=== PATIENT | female | born 1935 | race African-American/Black ===

== ENCOUNTER 2016-05-31 13:06 | Inpatient (IN) | payer MEDICARE, MEDICAID ==
[~2016-05-31] VITALS: Ht 152.4 cm; Wt 74.6 kg
[~2016-05-31 13:06] MED LIST: ALLO300T PO; CYCL10TA2 PO; HYDR-971 PO; LEVO500T38 PO; MECL25TA3 PO; TRAV5DRO EACHEYE
--- NOTE | 2016-05-31 14:28 | PDOC2 ---
SHERYL SCHAEFER COPY DIRECTOR 05/31/16 1428: CARDIAC CONSULT DATE OF CONSULT Date of Consult DATE: 05/31/16 TIME: 14:19 REASON FOR CONSULT Reason for Consult: Chest pain REFERRING PHYSICIAN Referring Physician: Jordin SOURCE Source: Caregiver (daughter), Chart review, Patient HISTORY OF PRESENT ILLNESS HISTORY OF PRESENT ILLNESS This is a pleasant 81 yo female admitted for complains of chest pain. Reports that about a week ago, while doing her groceries, she was walking and started having squeezing pain midsternal with TAYLOR. This lasted about 15-30 minutes and was actually feeling dizzy and about to pass out at that time. Also she has been having intermittent left shoulder pain. The chest discomfort happened again 2 days later, again with activity and this time with nausea. She has been feeling weak in the last week. Also has been having intermittent palpitations and her symptoms have been associated with SOA. Reports that this happened again which prompted her to see her PCP. After she was seen at her PCPs, she was then instructed to come to the hospital. She was recently treated with zithromax mainly as prophylaxis due to her significant lung history with prior lung CA and current COPD with reported small productive cough. Denies any PND or orthopnea but has been feeling insomnia. Denies any fever, diaphoresis, or chills. She uses O2 2LPM at night for her COPD and REBECCA. She no longer uses bipap as she did in the past. Denies any falls or any recent injury. To add she is not on any statin and does not take any ASA. PAST MEDICAL HISTORY Past Medical History Cardiovascular: Mild carotid artery disease (via MRA 12/2014), HTN Pulmonary: COPD (O2 use 2lpm at hs), Other (REBECCA) CENTRAL NERVOUS SYSTEM: BPPV, presyncope (vasovagal, prior event monitor with no significant arrhythmia) GI: Diverticulosis Heme/Onc: Cancer (lung), Other (DVT) Hepatobiliary: No pertinent hx Psych: No pertinent hx Musculoskeletal: low back pain, Osteoarthritis, scoliosis Rheumatologic: No pertinent hx Infectious disease: No pertinent hx ENT: Other (glaucoma), edentulism Renal/: UTI, CKD3 Endocrine: No pertinent hx Dermatology: No pertinent hx PAST SURGICAL HISTORY Past Surgical History Appendectomy, Cataract Removal, Total hip replacement (right ), Other (RUL lobectomy related to CA; lumbar decompression x2), teeth removal 2015 FAMILY HISTORY Family History: Coronary Artery Disease (father) SOCIAL HISTORY Smoke: No (quit 11 yrs ago) ALLERGIES ALLERGIES: Coded Allergies: No Known Allergies (Verified Allergy, Unknown, 01/05/15) ROS Review of System 14 point ROS evaluated with pertinent positives noted per HPI PHYSICAL EXAM General: Alert, Oriented X3, Cooperative, No acute distress HEENT: Atraumatic, Mucous membr. moist/pink Lungs: Other (faint bibasilar crackles) Heart: Regular rate, Normal S1, Normal S2, Other (2/6 systolic murmur to LLS border) Abdomen: Soft, No tenderness Extremities: No cyanosis, Other (2+ bilateral LE pitting edema) Skin: No breakdown, No significant lesion Neuro: Sensation intact Psych/Mental Status: Mental status NL, Mood NL MUSCULOSKELETAL: Osteoarthritic changes both hands ECHOCARDIOGRAM ECHOCARDIOGRAM <Conclusion> The left ventricle is normal size. Left ventricle systolic function is normal. The Ejection Fraction is 60-65%. There is no significant aortic valvular stenosis. Doppler and Color Flow revealed no significant aortic regurgitation. Doppler and Color Flow revealed trace mitral valve regurgitation. Doppler and Color Flow revealed mild tricuspid regurgitation. The PA pressure was estimated at 46 mmHg. There is no evidence of significant pericardial effusion. DATE: 01/06/15 1608 ASSESSMENT/PLAN ASSESSMENT/PLAN 1. Chest pain: EKG SR with mild T wave inversion to septal leads otherwise no significant changes by comparison. Cardiac enzymes pending. Pretest probability for CAD 54%. TTE today. Ischemic workup, MPI vs C pending diagnostics result. Discussed plan significantly with daughter and pt. TSH, lipid panel. ASA. 2. HTN: controlled 3. COPD/REBECCA: no longer use bipap but utilizes O2 at hs. Controlled. Recent zithromax use mainly empiric use per pt description. 4. Hx of lung CA: RUL lobectomy in the past. 5. HX of mild carotid artery disease 6. CKD3 Problems: VANE LUNDBERG MD 05/31/16 1650: CARDIAC CONSULT ALLERGIES ALLERGIES: Coded Allergies: No Known Allergies (Verified Allergy, Unknown, 01/05/15) ASSESSMENT/PLAN ASSESSMENT/PLAN Patient seen and examined The patient is now pain-free. Chest pain. No acute EKG changes. Pain has resolved. Echo and lab tests pending. Continue present treatments. Probable stress testing tomorrow. Controlled hypertension. Continue medical treatment. COPD. Continue present medications. History of lung cancer status post right lower lobe lobectomy in the past. Chronic kidney disease reportedly stage III. Lab tests pending. Thank you for allowing us to participate in the care of your pleasant patient. Problems: SHERYL SCHAEFER APRN May 31, 2016 14:28 VANE LUNDBERG MD May 31, 2016 16:50
[2016-05-31] MEDS ORDERED: ACETAMINOPHEN 325 MG TABLET. PO PRN (14:45)
[2016-05-31] MEDS ORDERED: 0.9 % SODIUM CHLORIDE 3ML DISP.SYRIN. IV PRN (14:45)
[2016-05-31] MEDS ORDERED: ONDANSETRON PF 4 MG/2 ML VIAL. IV PRN (14:45)
[2016-05-31 15:00] VITALS: BP 170/79
[2016-05-31] MEDS ORDERED: ASPIRIN ENTERIC COATED 325 MG TABLET.DR. PO ONE (15:00)
[2016-05-31] MEDS ORDERED: NITROGLYCERIN SUBLINGUAL 0.4 MG BOTTLE OF 25. SL PRN (15:00)
--- NOTE | 2016-05-31 15:17 | EKG ---
[facility] [address] [place] [address] Test Date: 2016-05-31 Test Time: 15:15:39 Pat Name: JOSE ALFREDO BOWSER Department: Room: 207 Gender: M [employer] E[employer] Helper: BETO : 1935 Requested By: SHEYRL SCHAEFER Order Number: [id number] Reading MD: Measurements Intervals [place] Rate: 73 P: 66 OK: 166 QRS: -7 QRSD: 74 T: 47 QT: 384 QTc: 427 Interpretive Statements SINUS RHYTHM LEFTWARD AXIS OTHERWISE NORMAL ECG RI6.01 Compared to ECG 01/06/2015 14:03:28 No significant changes
[2016-05-31 15:25] LABS: BASO # 0.1 x10^3/uL (0.0-0.2); BASO % 1 % (0-3); EOS % 1 % (0-3); HEMATOCRIT 36.8 % (36.0-47.0); HEMOGLOBIN 11.5 g/dL (12.0-15.5); LYMPH # 2.3 x10^3/uL (1.0-4.8); LYMPH % 19 % (24-48); MEAN CORPUSCULAR HEMOGLOBIN 30 pg (25-35); MEAN CORPUSCULAR HGB CONC 31 g/dL (31-37); MEAN CORPUSCULAR VOLUME 96 fL (79-100); MONO % 4 % (0-9); NEUT % 76 % (31-73); PLATELET COUNT 138 x10^3/uL (140-400); RED BLOOD COUNT 3.84 x10^6/uL (3.50-5.40); RED CELL DISTRIBUTION WIDTH 16.5 % (11.5-14.5); WHITE BLOOD COUNT 11.9 x10^3/uL (4.0-11.0)
[2016-05-31 15:54] LABS: CKMB MASS 0.5 ng/mL (0.0-3.6); CREATINE KINASE 52 U/L (26-192)
--- NOTE | 2016-05-31 15:55 | RAD ---
Portable chest, 05/31/2016: History: Chest pain, shortness of breath Comparison is made to a study from 01/06/2015. The left ventricle is mildly enlarged. There is calcific plaquing the aorta. A calcified granuloma is present in the left lung. The pulmonary vascularity is normal. No acute infiltrates are seen. There is chronic blunting of the right lateral costophrenic angle probably due to scarring. No definite pleural fluid is evident. Surgical clips are present at the right hilum. 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 There are moderate degenerative changes in the spine and at both shoulders. IMPRESSION: 1. Postsurgical change on the right. 2. Mild cardiomegaly and aortic atherosclerosis. 3. No acute abnormality is detected.
[2016-05-31 15:59] LABS: ALBUMIN 3.1 g/dL (3.4-5.0); ALBUMIN/GLOBULIN RATIO 0.9 (1.0-1.7); GFR 64.7; MAGNESIUM 1.9 mg/dL (1.8-2.4); POTASSIUM 3.4 mmol/L (3.5-5.1); TOTAL BILIRUBIN 0.3 mg/dL (0.2-1.0); TOTAL PROTEIN 6.6 g/dL (6.4-8.2)
[2016-05-31] MEDS ORDERED: POTASSIUM CHLORIDE 20 MEQ TABLET.ER. PO ONE (16:30)
[2016-05-31] MEDS ORDERED: ENOXAPARIN ** NOTE DOSE ** SYRINGE SQ ONE (16:30)
--- NOTE | 2016-05-31 16:35 | CARD ---
APPROVED REPORT EXAM: Two-dimensional and M-mode echocardiogram with Doppler and color Doppler. Other Information Quality : GoodHR: 88bpm Rhythm : NSR INDICATION Chest Pain 2D DIMENSIONS RVDd2.1 (2.9-3.5cm)Left Atrium(2D)2.9 (1.6-4.0cm) IVSd1.0 (0.7-1.1cm)Aortic Root(2D)3.0 (2.0-3.7cm) LVDd4.0 (3.9-5.9cm)LVOT Diameter2.2 (1.8-2.4cm) PWd1.0 (0.7-1.1cm)LVDs2.6 (2.5-4.0cm) FS (%) 35.2 %SV45.9 ml LVEF(%)65.1 (>50%) Aortic Valve AoV Peak Sergio.101.1cm/sAoV VTI21.4cm AO Peak GR.4.1mmHgLVOT Peak Sergio.74.5cm/s AO Mean GR.2mmHgAVA (VMAX)2.86cm2 Mitral Valve MV E Fmkaeskm59.7cm/sMV E Peak Gr.3mmHg MV DECEL [id number] A Zhrjalri130.4cm/s MV E Mean Gr.2mmHgE/A Ratio0.8 MV A [id number] Pulmonary Valve PV Peak Irybgtcc850.2cm/s Tricuspid Valve TR P. Gyyiikbb266wx/sTR Peak Gr.53mmHg Pulmonary Vein S1 Abtvauwm10.2cm/sD2 Hvcucoim35.2cm/s PVa [id number] LEFT VENTRICLE The left ventricle is normal size. There is normal left ventricular wall thickness. The left ventricu lar systolic function is normal. The Ejection Fraction is 60-65%. There is normal LV segmental wall m otion. Transmitral Doppler flow pattern is Grade I-abnormal relaxation pattern. RIGHT VENTRICLE The right ventricle is normal size. There is normal right ventricular wall thickness. The right ventr icular systolic function is normal. ATRIA The left atrium size is normal. The right atrium size is normal. The interatrial septum is intact wit h no evidence for an atrial septal defect or patent foramen ovale as noted on 2-D or Doppler imaging. AORTIC VALVE The aortic valve is mildly sclerotic. Doppler and Color Flow revealed no significant aortic regurgita tion. There is no significant aortic valvular stenosis. MITRAL VALVE The mitral valve leaflets are thickened. There is no evidence of mitral valve prolapse. There is no m itral valve stenosis. Doppler and Color Flow revealed trace mitral regurgitation. TRICUSPID VALVE Doppler and Color Flow revealed moderate tricuspid regurgitation. The pulmonary artery systolic press ure is estimated at 58 mmHg. There is moderate pulmonary hypertension. PULMONIC VALVE Doppler and Color Flow revealed mild pulmonic valvular regurgitation. There is no pulmonic valvular s tenosis. GREAT VESSELS The aortic root is normal in size. The ascending aorta is normal in size. The pulmonary artery is nor mal. The IVC is normal in size and collapses >50% with inspiration. PERICARDIAL EFFUSION There is no evidence of significant pericardial effusion. Critical Notification Critical Value: No <Conclusion> The left ventricular systolic function is normal. The Ejection Fraction is 60-65%. There is normal LV segmental wall motion. Transmitral Doppler flow pattern is Grade I-abnormal relaxation pattern. Moderate tricuspid regurgitation. The pulmonary artery systolic pressure is estimated at 58 mmHg. There is moderate pulmonary hypertension. There is no evidence of significant pericardial effusion.
[2016-05-31] MEDS ORDERED: HYDROCODONE/APAP 5/325MG TABLET. PO PRN (19:15)
[2016-05-31] MEDS ORDERED: CYCLOBENZAPRINE 10 MG TABLET. PO PRN (19:15)
[2016-05-31] MEDS ORDERED: METO25TA9 PO (19:18)
[2016-05-31] MEDS ORDERED: FURO-68 PO (19:18)
[2016-05-31] MEDS ORDERED: IPRA3AMP NEB (19:18)
[2016-05-31] MEDS ORDERED: ONDA4TAB7 PO (19:18)
[2016-05-31] MEDS ORDERED: VENTOLIN HFA18 GM INH (19:18)
[2016-05-31] MEDS ORDERED: MECLIZINE HCL 12.5 MG TABLET. PO PRN (19:30)
[2016-05-31 19:33] VITALS: BP 118/58
[2016-05-31] MEDS: LATANOPROST 0.005% OPHTH SOLUTION 2.5ML BOTTLE. OU SCH (21:00)
[2016-05-31 23:32] VITALS: BP 115/58
--- NOTE | 2016-06-01 00:17 | HP ---
ADMIT DATE: 05/31/2016 CHIEF COMPLAINT AND HISTORY OF PRESENT ILLNESS: This 81-year-old black female is well known to me from followup in the office. The patient presented on the day of admission having chest pressure with associated shortness of breath, lightheadedness, some nausea with exertion and it had happened as 3 separate episodes over the prior 3 days. She had to stop what she was doing and rest. ____ her story was very consistent with new onset angina. EKG in the office showed some T-wave inversions in V1, V2 and V3. She was admitted to the hospital to telemetry for Cardiac consultation and workup of what was felt to be a new onset angina. PAST MEDICAL HISTORY: Remarkable for COPD, has a history of carcinoma of the lung. She has some baseline shortness of breath from this. She has had some recent labyrinthitis and near syncope. MEDICATIONS: Brought with the patient, listed on the computer and have been addressed. ALLERGIES: She has no known drug allergies. SOCIAL HISTORY: She is a long time nonsmoker and does not drink alcohol. Single, lives at home alone, has a very supportive family and does not use drugs. FAMILY HISTORY: Noncontributory. REVIEW OF SYSTEMS: As mentioned above. PHYSICAL EXAMINATION: GENERAL: She is a well-developed, well-nourished, pleasant female in no acute distress at rest in the office. She may be a little paler than usual. VITAL SIGNS: Stable. She is afebrile. HEAD, EYES, EARS, NOSE AND THROAT: Remarkable for glasses. NECK: Supple without any thyromegaly. CHEST: Reveals decreased breath sounds bilaterally, but clear. HEART: Regular rate and rhythm without S3, S4 or murmur. ABDOMEN: Soft, nontender, without hepatosplenomegaly or mass. EXTREMITIES: Without cyanosis, clubbing or edema. NEUROLOGIC: She is intact. IMPRESSION: Chest pain, very concerning for new onset angina as described above with other problems listed above. PLAN: The patient has been admitted. EKG and chest x-ray will be checked. Cardiology will be consulted. ____ telemetry will be ongoing. Nitroglycerin has been added and the patient will be monitored, managed and treated appropriately. LIANG WILDER MD DR: YAJAIRA/korin JOB#: [id number] / [id number] Liang Walters M.D.
[2016-06-01 03:31] VITALS: BP 122/57
[2016-06-01 06:19] LABS: CHOLESTEROL/HDL RATIO 2.1
[2016-06-01 07:00] VITALS: BP 126/65
[2016-06-01 07:37] LABS: BASO # 0.1 x10^3/uL (0.0-0.2); BASO % 1 % (0-3); EOS % 1 % (0-3); HEMATOCRIT 33.6 % (36.0-47.0); HEMOGLOBIN 10.7 g/dL (12.0-15.5); LYMPH # 2.1 x10^3/uL (1.0-4.8); LYMPH % 21 % (24-48); MEAN CORPUSCULAR HEMOGLOBIN 30 pg (25-35); MEAN CORPUSCULAR HGB CONC 32 g/dL (31-37); MEAN CORPUSCULAR VOLUME 95 fL (79-100); MONO % 4 % (0-9); NEUT % 73 % (31-73); PLATELET COUNT 138 x10^3/uL (140-400); RED BLOOD COUNT 3.55 x10^6/uL (3.50-5.40); RED CELL DISTRIBUTION WIDTH 16.6 % (11.5-14.5); WHITE BLOOD COUNT 10.3 x10^3/uL (4.0-11.0)
[2016-06-01 07:49] LABS: ALBUMIN 2.8 g/dL (3.4-5.0); ALBUMIN/GLOBULIN RATIO 1.1 (1.0-1.7); CALCIUM 8.4 mg/dL (8.5-10.1); GFR 64.7; POTASSIUM 3.9 mmol/L (3.5-5.1); TOTAL BILIRUBIN 0.2 mg/dL (0.2-1.0); TOTAL PROTEIN 5.4 g/dL (6.4-8.2)
[2016-06-01] MEDS ORDERED: REGADENOSON 0.4 MG/5 ML DISP.SYRIN. IV ONE (09:00)
--- NOTE | 2016-06-01 09:12 | PDOC ---
CARDIO Progress Notes Date and Time Date of Service 06/01/2016 Time of Evaluation 0900 Subjective Subjective: No Chest Pain, No shortness of breath, No Palpitations, No Dizziness, Other (slept well last night) Vitals Vitals Vital Signs Date Time Temp Pulse Resp B/P Pulse Ox O2 Delivery O2 Flow Rate FiO2 06/01/16 07:00 98.3 66 17 126/65 98 Nasal Cannula 2.0 98.3 Weight Weight [ ] Input and Output Intake and Output Intake and Output 06/01/16 07:00 Intake Total 300 ml Balance 300 ml Intake Oral 300 ml # Voids 4 Laboratory Labs Laboratory Tests Test 05/31/16 15:10 06/01/16 04:46 White Blood Count 11.9x10^3/uL (4.0-11.0) 10.3x10^3/uL (4.0-11.0) Red Blood Count 3.84x10^6/uL (3.50-5.40) 3.55x10^6/uL (3.50-5.40) Hemoglobin 11.5g/dL (12.0-15.5) 10.7g/dL (12.0-15.5) Hematocrit 36.8% (36.0-47.0) 33.6% (36.0-47.0) Mean Corpuscular Volume 96fL (79-100) 95fL (79-100) Mean Corpuscular Hemoglobin 30pg (25-35) 30pg (25-35) Mean Corpuscular Hemoglobin Concent 31g/dL (31-37) 32g/dL (31-37) Red Cell Distribution Width 16.5% (11.5-14.5) 16.6% (11.5-14.5) Platelet Count 138x10^3/uL (140-400) 138x10^3/uL (140-400) Neutrophils (%) (Auto) 76% (31-73) 73% (31-73) Lymphocytes (%) (Auto) 19% (24-48) 21% (24-48) Monocytes (%) (Auto) 4% (0-9) 4% (0-9) Eosinophils (%) (Auto) 1% (0-3) 1% (0-3) Basophils (%) (Auto) 1% (0-3) 1% (0-3) Neutrophils # (Auto) 9.1x10^3uL (1.8-7.7) 7.5x10^3uL (1.8-7.7) Lymphocytes # (Auto) 2.3x10^3/uL (1.0-4.8) 2.1x10^3/uL (1.0-4.8) Monocytes # (Auto) 0.4x10^3/uL (0.0-1.1) 0.4x10^3/uL (0.0-1.1) Eosinophils # (Auto) 0.1x10^3/uL (0.0-0.7) 0.1x10^3/uL (0.0-0.7) Basophils # (Auto) 0.1x10^3/uL (0.0-0.2) 0.1x10^3/uL (0.0-0.2) Sodium Level 146mmol/L (136-145) 145mmol/L (136-145) Potassium Level 3.4mmol/L (3.5-5.1) 3.9mmol/L (3.5-5.1) Chloride Level 110mmol/L (98-107) 109mmol/L (98-107) Carbon Dioxide Level 27mmol/L (21-32) 30mmol/L (21-32) Anion Gap 9 (6-14) 6 (6-14) Blood Urea Nitrogen 20mg/dL (7-20) 17mg/dL (7-20) Creatinine 1.0mg/dL (0.6-1.0) 1.0mg/dL (0.6-1.0) Estimated GFR (Cockcroft-Gault) 64.7 64.7 BUN/Creatinine Ratio 20 (6-20) 17 (6-20) Glucose Level 73mg/dL (70-99) 75mg/dL (70-99) Calcium Level 9.0mg/dL (8.5-10.1) 8.4mg/dL (8.5-10.1) Magnesium Level 1.9mg/dL (1.8-2.4) Total Bilirubin 0.3mg/dL (0.2-1.0) 0.2mg/dL (0.2-1.0) Aspartate Amino Transf (AST/SGOT) 17U/L (15-37) 17U/L (15-37) Alanine Aminotransferase (ALT/SGPT) 12U/L (14-59) 13U/L (14-59) Alkaline Phosphatase 112U/L (46-116) 103U/L (46-116) Creatine Kinase 52U/L (26-192) Creatine Kinase MB (Mass) 0.5ng/mL (0.0-3.6) Creatine Kinase MB Relative Index % (0-4) Troponin I Quantitative < 0.017ng/mL (0.000-0.055) < 0.017ng/mL (0.000-0.055) MN-Mkj-I-Type Natriuretic Peptide 411pg/mL (0-449) Total Protein 6.6g/dL (6.4-8.2) 5.4g/dL (6.4-8.2) Albumin 3.1g/dL (3.4-5.0) 2.8g/dL (3.4-5.0) Albumin/Globulin Ratio 0.9 (1.0-1.7) 1.1 (1.0-1.7) Thyroid Stimulating Hormone (TSH) 1.965uIU/mL (0.358-3.74) Triglycerides Level 174mg/dL (0-150) Cholesterol Level 168mg/dL (0-200) LDL Cholesterol, Calculated 54mg/dL (0-100) VLDL Cholesterol, Calculated 35mg/dL (0-40) HDL Cholesterol 79mg/dL (40-60) Cholesterol/HDL Ratio 2.1 Physical Exam HEENT: Neck Supple W Full Motion Chest: Symmetric LUNGS: Clear to Auscultation Heart: S1S2, RRR (no significant ectopies overnight) Abdomen: Soft N/T Extremities: No Calf Tenderness Neurology: alert, oriented, follow commands Assessment Assessment 1. Chest pain: Troponin series normal. CP free overnight and no SOA. TTE noted with normal EF with mild diastolic dysfunction. Notable for moderate MR and pulmonary HTN. MPI today to completely rule out ischemia. . 2. HTN: controlled, continue with home regimen. 3. COPD/REBECCA: no longer use bipap but utilizes O2 at hs. Controlled. Recent zithromax use mainly empiric use per pt description. 4. Hx of lung CA: RUL lobectomy in the past. 5. HX of mild carotid artery disease 6. CKD3 SHERYL SCHAEFER APRN Jun 01, 2016 09:12
[2016-06-01] MEDS ORDERED: ALBUTEROL SULFATE 2.5 MG/3 ML NEBU. NEB PRN (12:00)
[2016-06-01] MEDS: IPRATRPIUM/ALBUTEROL 0.5/2.5MG 3 ML NEBU. NEB SCH ×3 (12:05→19:19)
--- NOTE | 2016-06-01 12:53 | PDOC ---
PROGRESS NOTES Subjective Subjective Pt awake and pleasant this am. Denies further episodes of chest pain since admission. Pt NPO this am awaiting stress testing, however states is hungry. Objective Objective Vital Signs Date Time Temp Pulse Resp B/P Pulse Ox O2 Delivery O2 Flow Rate FiO2 06/01/16 12:06 97 Room Air 06/01/16 07:00 98.3 66 17 126/65 2.0 98.3 Intake and Output 06/01/16 07:00 Intake Total 300 ml Balance 300 ml Intake Oral 300 ml # Voids 4 Plan Plan of Care 1. Chest pain -3d hx of exertional chest pain with associated diaphoresis and SOB -Cardiology consulting -CXR: Postsurgical change on the right. Mild cardiomegaly and aortic atherosclerosis. No acute abnormality is detected. -Triponin negative -EKG in the office showed some T-wave inversions in V1, V2 and V3. -Echo: The left ventricular systolic function is normal. The Ejection Fraction is 60-65%. There is normal LV segmental wall motion. Transmitral Doppler flow pattern is Grade I-abnormal relaxation pattern. Moderate tricuspid regurgitation. The pulmonary artery systolic pressure is estimated at 58 mmHg. There is moderate pulmonary hypertension. There is no evidence of significant pericardial effusion. -Stress test today Comment Review of Relevant I have reviewed the following items maria (where applicable) has been applied. Labs Laboratory Tests Test 05/31/16 15:10 06/01/16 04:46 White Blood Count 11.9x10^3/uL (4.0-11.0) 10.3x10^3/uL (4.0-11.0) Red Blood Count 3.84x10^6/uL (3.50-5.40) 3.55x10^6/uL (3.50-5.40) Hemoglobin 11.5g/dL (12.0-15.5) 10.7g/dL (12.0-15.5) Hematocrit 36.8% (36.0-47.0) 33.6% (36.0-47.0) Mean Corpuscular Volume 96fL (79-100) 95fL (79-100) Mean Corpuscular Hemoglobin 30pg (25-35) 30pg (25-35) Mean Corpuscular Hemoglobin Concent 31g/dL (31-37) 32g/dL (31-37) Red Cell Distribution Width 16.5% (11.5-14.5) 16.6% (11.5-14.5) Platelet Count 138x10^3/uL (140-400) 138x10^3/uL (140-400) Neutrophils (%) (Auto) 76% (31-73) 73% (31-73) Lymphocytes (%) (Auto) 19% (24-48) 21% (24-48) Monocytes (%) (Auto) 4% (0-9) 4% (0-9) Eosinophils (%) (Auto) 1% (0-3) 1% (0-3) Basophils (%) (Auto) 1% (0-3) 1% (0-3) Neutrophils # (Auto) 9.1x10^3uL (1.8-7.7) 7.5x10^3uL (1.8-7.7) Lymphocytes # (Auto) 2.3x10^3/uL (1.0-4.8) 2.1x10^3/uL (1.0-4.8) Monocytes # (Auto) 0.4x10^3/uL (0.0-1.1) 0.4x10^3/uL (0.0-1.1) Eosinophils # (Auto) 0.1x10^3/uL (0.0-0.7) 0.1x10^3/uL (0.0-0.7) Basophils # (Auto) 0.1x10^3/uL (0.0-0.2) 0.1x10^3/uL (0.0-0.2) Sodium Level 146mmol/L (136-145) 145mmol/L (136-145) Potassium Level 3.4mmol/L (3.5-5.1) 3.9mmol/L (3.5-5.1) Chloride Level 110mmol/L (98-107) 109mmol/L (98-107) Carbon Dioxide Level 27mmol/L (21-32) 30mmol/L (21-32) Anion Gap 9 (6-14) 6 (6-14) Blood Urea Nitrogen 20mg/dL (7-20) 17mg/dL (7-20) Creatinine 1.0mg/dL (0.6-1.0) 1.0mg/dL (0.6-1.0) Estimated GFR (Cockcroft-Gault) 64.7 64.7 BUN/Creatinine Ratio 20 (6-20) 17 (6-20) Glucose Level 73mg/dL (70-99) 75mg/dL (70-99) Calcium Level 9.0mg/dL (8.5-10.1) 8.4mg/dL (8.5-10.1) Magnesium Level 1.9mg/dL (1.8-2.4) Total Bilirubin 0.3mg/dL (0.2-1.0) 0.2mg/dL (0.2-1.0) Aspartate Amino Transf (AST/SGOT) 17U/L (15-37) 17U/L (15-37) Alanine Aminotransferase (ALT/SGPT) 12U/L (14-59) 13U/L (14-59) Alkaline Phosphatase 112U/L (46-116) 103U/L (46-116) Creatine Kinase 52U/L (26-192) Creatine Kinase MB (Mass) 0.5ng/mL (0.0-3.6) Creatine Kinase MB Relative Index % (0-4) Troponin I Quantitative < 0.017ng/mL (0.000-0.055) < 0.017ng/mL (0.000-0.055) FE-Lwg-E-Type Natriuretic Peptide 411pg/mL (0-449) Total Protein 6.6g/dL (6.4-8.2) 5.4g/dL (6.4-8.2) Albumin 3.1g/dL (3.4-5.0) 2.8g/dL (3.4-5.0) Albumin/Globulin Ratio 0.9 (1.0-1.7) 1.1 (1.0-1.7) Thyroid Stimulating Hormone (TSH) 1.965uIU/mL (0.358-3.74) Triglycerides Level 174mg/dL (0-150) Cholesterol Level 168mg/dL (0-200) LDL Cholesterol, Calculated 54mg/dL (0-100) VLDL Cholesterol, Calculated 35mg/dL (0-40) HDL Cholesterol 79mg/dL (40-60) Cholesterol/HDL Ratio 2.1 Laboratory Tests Test 05/31/16 15:10 06/01/16 04:46 White Blood Count 11.9x10^3/uL (4.0-11.0) 10.3x10^3/uL (4.0-11.0) Red Blood Count 3.84x10^6/uL (3.50-5.40) 3.55x10^6/uL (3.50-5.40) Hemoglobin 11.5g/dL (12.0-15.5) 10.7g/dL (12.0-15.5) Hematocrit 36.8% (36.0-47.0) 33.6% (36.0-47.0) Mean Corpuscular Volume 96fL (79-100) 95fL (79-100) Mean Corpuscular Hemoglobin 30pg (25-35) 30pg (25-35) Mean Corpuscular Hemoglobin Concent 31g/dL (31-37) 32g/dL (31-37) Red Cell Distribution Width 16.5% (11.5-14.5) 16.6% (11.5-14.5) Platelet Count 138x10^3/uL (140-400) 138x10^3/uL (140-400) Neutrophils (%) (Auto) 76% (31-73) 73% (31-73) Lymphocytes (%) (Auto) 19% (24-48) 21% (24-48) Monocytes (%) (Auto) 4% (0-9) 4% (0-9) Eosinophils (%) (Auto) 1% (0-3) 1% (0-3) Basophils (%) (Auto) 1% (0-3) 1% (0-3) Neutrophils # (Auto) 9.1x10^3uL (1.8-7.7) 7.5x10^3uL (1.8-7.7) Lymphocytes # (Auto) 2.3x10^3/uL (1.0-4.8) 2.1x10^3/uL (1.0-4.8) Monocytes # (Auto) 0.4x10^3/uL (0.0-1.1) 0.4x10^3/uL (0.0-1.1) Eosinophils # (Auto) 0.1x10^3/uL (0.0-0.7) 0.1x10^3/uL (0.0-0.7) Basophils # (Auto) 0.1x10^3/uL (0.0-0.2) 0.1x10^3/uL (0.0-0.2) Sodium Level 146mmol/L (136-145) 145mmol/L (136-145) Potassium Level 3.4mmol/L (3.5-5.1) 3.9mmol/L (3.5-5.1) Chloride Level 110mmol/L (98-107) 109mmol/L (98-107) Carbon Dioxide Level 27mmol/L (21-32) 30mmol/L (21-32) Anion Gap 9 (6-14) 6 (6-14) Blood Urea Nitrogen 20mg/dL (7-20) 17mg/dL (7-20) Creatinine 1.0mg/dL (0.6-1.0) 1.0mg/dL (0.6-1.0) Estimated GFR (Cockcroft-Gault) 64.7 64.7 BUN/Creatinine Ratio 20 (6-20) 17 (6-20) Glucose Level 73mg/dL (70-99) 75mg/dL (70-99) Calcium Level 9.0mg/dL (8.5-10.1) 8.4mg/dL (8.5-10.1) Magnesium Level 1.9mg/dL (1.8-2.4) Total Bilirubin 0.3mg/dL (0.2-1.0) 0.2mg/dL (0.2-1.0) Aspartate Amino Transf (AST/SGOT) 17U/L (15-37) 17U/L (15-37) Alanine Aminotransferase (ALT/SGPT) 12U/L (14-59) 13U/L (14-59) Alkaline Phosphatase 112U/L (46-116) 103U/L (46-116) Creatine Kinase 52U/L (26-192) Creatine Kinase MB (Mass) 0.5ng/mL (0.0-3.6) Creatine Kinase MB Relative Index % (0-4) Troponin I Quantitative < 0.017ng/mL (0.000-0.055) < 0.017ng/mL (0.000-0.055) CO-Uuk-Q-Type Natriuretic Peptide 411pg/mL (0-449) Total Protein 6.6g/dL (6.4-8.2) 5.4g/dL (6.4-8.2) Albumin 3.1g/dL (3.4-5.0) 2.8g/dL (3.4-5.0) Albumin/Globulin Ratio 0.9 (1.0-1.7) 1.1 (1.0-1.7) Thyroid Stimulating Hormone (TSH) 1.965uIU/mL (0.358-3.74) Triglycerides Level 174mg/dL (0-150) Cholesterol Level 168mg/dL (0-200) LDL Cholesterol, Calculated 54mg/dL (0-100) VLDL Cholesterol, Calculated 35mg/dL (0-40) HDL Cholesterol 79mg/dL (40-60) Cholesterol/HDL Ratio 2.1 Medications Current Medications Aspirin (Ecotrin) 325 mg 1X ONCE PO Last administered on 05/31/16 18:30; Start 05/31/16 at 15:00; Stop 05/31/16 at 15:01; Status DC Aspirin (Ecotrin) 81 mg DAILYWBKFT PO ; Start 06/01/16 at 08:00 Sodium Chloride (Normal Saline Flush 3ml) 3 ml QSHIFT PRN IV AFTER MEDS AND BLOOD DRAWS; Start 05/31/16 at 14:45 Ondansetron HCl (Zofran) 4 mg PRN Q4HRS PRN IV NAUSEA/VOMITING; Start 05/31/16 at 14:45 Acetaminophen (Tylenol) 650 mg PRN Q4HRS PRN PO TEMP OVER 100.4F OR MILD PAIN; Start 05/31/16 at 14:45 Nitroglycerin (Nitrostat) 0.4 mg PRN Q5MIN PRN SL CHEST PAIN; Start 05/31/16 at 15:00 Potassium Chloride (Klor-Con) 40 meq 1X ONCE PO Last administered on 05/31/16 18:30; Start 05/31/16 at 16:30; Stop 05/31/16 at 16:35; Status DC Enoxaparin Sodium (Lovenox 80mg Syringe) 80 mg 1X ONCE SQ Last administered on 05/31/16 18:30; Start 05/31/16 at 16:30; Stop 05/31/16 at 16:36; Status DC Allopurinol (Zyloprim) 300 mg DAILY PO ; Start 06/01/16 at 09:00 Cyclobenzaprine HCl (Flexeril) 10 mg PRN TID PRN PO MUSLE SPASMS; Start at 19:15 Acetaminophen/ Hydrocodone Bitart (Lortab 5/325) 1 tab PRN Q6HRS PRN PO PAIN; Start 05/31/16 at 19:15 Meclizine HCl (Antivert) 25 mg PRN TID PRN PO DIZZINESS; Start 05/31/16 at 19:30 Latanoprost (Xalatan) 1 drop QHS OU Last administered on 05/31/16 21:00; Start 05/31/16 at 21:00 Regadenoson (Lexiscan) 0.4 mg 1X ONCE IV Last administered on 06/01/16 10:44; Start 06/01/16 at 09:00; Stop 06/01/16 at 09:01; Status DC Furosemide (Lasix) 40 mg DAILY PO ; Start 06/01/16 at 12:00 Albuterol/ Ipratropium (Duoneb) 3 ml RTQID NEB Last administered on 06/01/16 12 :05; Start 06/01/16 at 12:00 Metoprolol Succinate (Toprol Xl) 25 mg DAILY PO ; Start 06/01/16 at 12:00 Albuterol Sulfate (Ventolin Neb Soln) 2.5 mg PRN QID PRN NEB SHORTNESS OF BREATH; Start 06/01/16 at 12:00 Ondansetron HCl (Zofran Odt) 4 mg Q6HRS PO ; Start 06/01/16 at 12:00 Active Scripts Active Reported Duoneb 0.5-3(2.5) Mg/3 Ml (Albuterol/Ipratropium) 3 Ml Ampul.neb 3 Ml NEB QID Ventolin Hfa Inhaler (Albuterol Sulfate) 18 Gm Hfa.aer.ad 2 Puff INH QID Zofran (Ondansetron Hcl) 4 Mg Tablet 1 Tab PO Q6HRS Metoprolol Succinate ( Xl ) (Metoprolol Succinate) 25 Mg Tab.er.24h 1 Tab PO DAILY Lasix (Furosemide) 40 Mg Tablet 1 Tab PO DAILY Travatan Z (Travoprost) 5 Ml Drops 1 Drop EACHEYE QHS [place] 5-325 Tablet (Acetaminophen/Hydrocodone Bitart) 1 Each Tablet 1 Tab PO PRN Q6HRS PRN Cyclobenzaprine Hcl 10 Mg Tablet 1 Tab PO PRN TID Allopurinol 300 Mg Tablet 1 Tab PO DAILY Meclizine Hcl 25 Mg Tablet 1 Tab PO PRN TID Vitals/I & O Vital Sign - Last 24 Hours 05/31/16 05/31/16 05/31/16 05/31/16 15:00 19:19 19:33 20:00 Temp 97.8 97.7 97.8 97.7 Pulse 109 63 Resp B/P 170/79 118/58 Pulse Ox 97 93 O2 Delivery Room Air Nasal Cannula Nasal Cannula Nasal Cannula O2 Flow Rate 2.0 2.0 2.0 05/31/16 06/01/16 06/01/16 06/01/16 23:32 03:31 07:00 12:06 Temp 97.8 98.0 98.3 97.8 98.0 98.3 Pulse 72 76 66 Resp B/P 115/58 122/57 126/65 Pulse Ox 99 99 98 97 O2 Delivery Nasal Cannula Nasal Cannula Nasal Cannula Room Air O2 Flow Rate 2.0 2.0 2.0 Intake and Output 05/31/16 05/31/16 06/01/16 15:00 23:00 07:00 Intake Total 300 ml Balance 300 ml LIANG WILDER MD Jun 01, 2016 12:53
--- NOTE | 2016-06-01 12:59 | RAD ---
APPROVED REPORT Test Type: Pharmacological Stress Nurse/Tech: CHAD Gutierrez RN Test Indications: Chest discomfort Cardiac History: HTN, see EHR Medications: see EHR Medical History: COPD, see EHR Resting ECG: SR slightly depressed inferior leads 0.5mm Resting Heart Rate: 92 bpm Resting Blood Pressure: 153/76mmHg Pretest Chest Pain: No chest pain Nurse/Tech Notes Lungs CTA, heart tones WNL Consent: The procedure was explained to the patient in lay terms. Informed consent was witnessed. Avni eout was entered into [employer] History and Stress Test performed by LISA Guillaume Pharm. Details Pharmacologic stress testing was performed using 0.4mg per 5ml of regadenoson given intravenously ove r 7-10 seconds. Stress Symptoms No chest pain during stress portion, described a squeezing feeling "all over" during last 30 sec of r ecovery POST EXERCISE Reason for Termination: Infusion complete Max HR: 116 bpm 97% of Maximum Predicted HR: 119 bpm Max Blood Pressure: 151/66mmHg Chest Pain: No. Arrhythmia: No. ST Change: Yes. II, III, AVF no further depression Deviation: 0.5 mm INTERPRETATION Stress EKG Conclusion: Baseline EKG showed sinus rhythm. No ischemic changes at peak stress. No arr hythmias. Imaging Protocol IMAGE PROTOCOL: Rest Tc-99m/stress Tc-99m 1 day Rest: Stress: Viability: Radiopharm.Tc99m HmngtwdpfYq05m Sestamibi Dose12.4mCi 38.6mCi Duration 15min. 10min. Img Date 06/01/2016 06/01/2016 Inj-Img [id number]. 60min. Rest Admin Site:IV - Left ForearmAdministrator:LISA Guillaume Stress Admin Site: IV - Left ForearmAdministrator: LISA Guillaume STRESS DATA End Diast. Vol.28.0mlAv. Heart Bvhn441.0bpm End Syst. Vol.3.0mlCO Index BSA0.0L/min Myocardial Mass67.0gEject. Spqwdvfy55.0% Stress Rates Pk. Fill Rate7.06EDV/secLVtime Pk. Fill 169.11msec Pk. Empty Rate6.08ESV/secLVtime Pk. Jkjza200.52msec 1/3 Pk. Fill0.25EDV/sec Stress Scores Regional WT0.00Summed WT0.00 Regional WM1.00Summed WM5.00 Study quality was good. Left Ventricular size was Normal at Rest and Stress. Lung uptake was Normal. Left Ventricular ejection fraction is 89%. The rest and stress images show normal perfusion, normal contraction and thickening. LV Perf. Quant 17 Seg. SSS1.00 17 Seg. SRS0.00 17 Seg. SDS1.00 Stress Defect Extent (% LAD)0.00Rest Defect Extent (% LAD)0.00Rev. Defect Extent (% LAD)0.00 Stress Defect Extent (% LCX) 8.80Rest Defect Extent (% LCX)0.00Rev. Defect Extent (% LCX)6.30 Stress Defect Extent (% RCA)0.00Rest Defect Extent (% RCA)0.00Rev. Defect Extent (% RCA)0.00 Stress Defect Extent (% EUNICE)1.50Rest Defect Extent (% EUNICE)0.00Rev. Defect Extent (% EUNICE)1.10 Conclusion 1. Regadenoson cardioisotope stress test did not show any evidence of ischemia or infarct. 2. Normal left ventricular systolic function with ejection fraction calculated at 89%. 3. Low risk for cardiac events.
[2016-06-01] MEDS: FUROSEMIDE 40 MG TABLET PO SCH (13:12)
[2016-06-01] MEDS: ASPIRIN ENTERIC COATED 81 MG TABLET.DR. PO SCH (13:12)
[2016-06-01] MEDS: ALLOPURINOL 300 MG TABLET. PO SCH (13:12)
[2016-06-01] MEDS: ONDANSETRON ODT 4 MG TAB.RAPDIS PO SCH ×2 (13:13→18:59)
[2016-06-01] MEDS: METOPROLOL SUCC 24HR ER 25 MG TAB.ER.24H. PO SCH (13:13)
[2016-06-01 15:00] VITALS: BP 158/71
[2016-06-01 19:36] VITALS: BP 142/65
[2016-06-01] MEDS ORDERED: ONDANSETRON ODT 4 MG TAB.RAPDIS PO PRN (20:00)
[2016-06-01] MEDS: CYCLOBENZAPRINE 10 MG TABLET. PO SCH (22:14)
[2016-06-01] MEDS: LATANOPROST 0.005% OPHTH SOLUTION 2.5ML BOTTLE. OU SCH (22:14)
[2016-06-01 23:20] VITALS: BP 107/55
[2016-06-02 03:35] VITALS: BP 150/70
[2016-06-02 07:00] VITALS: BP 114/63
[2016-06-02] MEDS: IPRATRPIUM/ALBUTEROL 0.5/2.5MG 3 ML NEBU. NEB SCH ×2 (08:35→12:11)
[2016-06-02] MEDS ORDERED: ASPI81TA9 PO (10:32)
[2016-06-02] MEDS ORDERED: NITR0.4T SL (10:32)
--- NOTE | 2016-06-02 10:35 | PDOC ---
PROGRESS NOTES Subjective Subjective Pt awake and pleasant. Denies further episodes of chest pain since admission. Pt states she has been eating and drinking well with good output. Objective Objective Pt awake and alert. NAD. VSS. Afebrile. Lung sounds CTA bilat. Resp even and unlabored. Heart with RRR. No murmurs. Vital Signs Date Time Temp Pulse Resp B/P Pulse Ox O2 Delivery O2 Flow Rate FiO2 06/02/16 08:37 98 Room Air 06/02/16 07:00 98.0 92 20 114/63 2.0 98.0 Intake and Output 06/02/16 07:00 Intake Total 970 ml Output Total 1900 ml Balance -930 ml Intake Oral 970 ml Output Urine Total 1900 ml Plan Plan of Care 1. Chest pain -3d hx of exertional chest pain with associated diaphoresis and SOB -Cardiology consulting -CXR: Postsurgical change on the right. Mild cardiomegaly and aortic atherosclerosis. No acute abnormality is detected. -Triponin negative -EKG in the office showed some T-wave inversions in V1, V2 and V3. -Echo: The left ventricular systolic function is normal. The Ejection Fraction is 60-65%. There is normal LV segmental wall motion. Transmitral Doppler flow pattern is Grade I-abnormal relaxation pattern. Moderate tricuspid regurgitation. The pulmonary artery systolic pressure is estimated at 58 mmHg. There is moderate pulmonary hypertension. There is no evidence of significant pericardial effusion. -Stress test: 1. Regadenoson cardioisotope stress test did not show any evidence of ischemia or infarct. 2. Normal left ventricular systolic function with ejection fraction calculated at 89%. 3. Low risk for cardiac events. -Recommended cardiac cath secondary to pts s/s. Cardiology will proceed if s/ s reoccur. Pt will be discharged with Nitro prn. Pt to Dc home today. Regular diet. Activity as tolerated. Resume previous home meds with addition of Nitro prn and ASA 81mg qd. (Attempted to send scripts through EMR, however no pharmacy listed. RN to call in to pharmacy of pt's desire.) Pt to f/u in or office in 1 week ([phone]). Comment Review of Relevant I have reviewed the following items maria (where applicable) has been applied. Labs Laboratory Tests Test 05/31/16 15:10 06/01/16 04:46 06/01/16 16:00 White Blood Count 11.9x10^3/uL (4.0-11.0) 10.3x10^3/uL (4.0-11.0) Red Blood Count 3.84x10^6/uL (3.50-5.40) 3.55x10^6/uL (3.50-5.40) Hemoglobin 11.5g/dL (12.0-15.5) 10.7g/dL (12.0-15.5) Hematocrit 36.8% (36.0-47.0) 33.6% (36.0-47.0) Mean Corpuscular Volume 96fL (79-100) 95fL (79-100) Mean Corpuscular Hemoglobin 30pg (25-35) 30pg (25-35) Mean Corpuscular Hemoglobin Concent 31g/dL (31-37) 32g/dL (31-37) Red Cell Distribution Width 16.5% (11.5-14.5) 16.6% (11.5-14.5) Platelet Count 138x10^3/uL (140-400) 138x10^3/uL (140-400) Neutrophils (%) (Auto) 76% (31-73) 73% (31-73) Lymphocytes (%) (Auto) 19% (24-48) 21% (24-48) Monocytes (%) (Auto) 4% (0-9) 4% (0-9) Eosinophils (%) (Auto) 1% (0-3) 1% (0-3) Basophils (%) (Auto) 1% (0-3) 1% (0-3) Neutrophils # (Auto) 9.1x10^3uL (1.8-7.7) 7.5x10^3uL (1.8-7.7) Lymphocytes # (Auto) 2.3x10^3/uL (1.0-4.8) 2.1x10^3/uL (1.0-4.8) Monocytes # (Auto) 0.4x10^3/uL (0.0-1.1) 0.4x10^3/uL (0.0-1.1) Eosinophils # (Auto) 0.1x10^3/uL (0.0-0.7) 0.1x10^3/uL (0.0-0.7) Basophils # (Auto) 0.1x10^3/uL (0.0-0.2) 0.1x10^3/uL (0.0-0.2) Sodium Level 146mmol/L (136-145) 145mmol/L (136-145) Potassium Level 3.4mmol/L (3.5-5.1) 3.9mmol/L (3.5-5.1) Chloride Level 110mmol/L (98-107) 109mmol/L (98-107) Carbon Dioxide Level 27mmol/L (21-32) 30mmol/L (21-32) Anion Gap 9 (6-14) 6 (6-14) Blood Urea Nitrogen 20mg/dL (7-20) 17mg/dL (7-20) Creatinine 1.0mg/dL (0.6-1.0) 1.0mg/dL (0.6-1.0) Estimated GFR (Cockcroft-Gault) 64.7 64.7 BUN/Creatinine Ratio 20 (6-20) 17 (6-20) Glucose Level 73mg/dL (70-99) 75mg/dL (70-99) Calcium Level 9.0mg/dL (8.5-10.1) 8.4mg/dL (8.5-10.1) Magnesium Level 1.9mg/dL (1.8-2.4) Total Bilirubin 0.3mg/dL (0.2-1.0) 0.2mg/dL (0.2-1.0) Aspartate Amino Transf (AST/SGOT) 17U/L (15-37) 17U/L (15-37) Alanine Aminotransferase (ALT/SGPT) 12U/L (14-59) 13U/L (14-59) Alkaline Phosphatase 112U/L (46-116) 103U/L (46-116) Creatine Kinase 52U/L (26-192) Creatine Kinase MB (Mass) 0.5ng/mL (0.0-3.6) Creatine Kinase MB Relative Index % (0-4) Troponin I Quantitative < 0.017ng/mL (0.000-0.055) < 0.017ng/mL (0.000-0.055) BG-Vxb-A-Type Natriuretic Peptide 411pg/mL (0-449) Total Protein 6.6g/dL (6.4-8.2) 5.4g/dL (6.4-8.2) Albumin 3.1g/dL (3.4-5.0) 2.8g/dL (3.4-5.0) Albumin/Globulin Ratio 0.9 (1.0-1.7) 1.1 (1.0-1.7) Thyroid Stimulating Hormone (TSH) 1.965uIU/mL (0.358-3.74) Triglycerides Level 174mg/dL (0-150) Cholesterol Level 168mg/dL (0-200) LDL Cholesterol, Calculated 54mg/dL (0-100) VLDL Cholesterol, Calculated 35mg/dL (0-40) HDL Cholesterol 79mg/dL (40-60) Cholesterol/HDL Ratio 2.1 D-Dimer (Sharda) 0.50ug/mlFEU (0.00-0.50) Laboratory Tests Test 06/01/16 16:00 D-Dimer (Sharda) 0.50ug/mlFEU (0.00-0.50) Medications Current Medications Aspirin (Ecotrin) 325 mg 1X ONCE PO Last administered on 05/31/16 18:30; Start 05/31/16 at 15:00; Stop 05/31/16 at 15:01; Status DC Aspirin (Ecotrin) 81 mg DAILYWBKFT PO Last administered on 06/01/16 13:12; Start 06/01/16 at 08:00 Sodium Chloride (Normal Saline Flush 3ml) 3 ml QSHIFT PRN IV AFTER MEDS AND BLOOD DRAWS; Start 05/31/16 at 14:45 Ondansetron HCl (Zofran) 4 mg PRN Q4HRS PRN IV NAUSEA/VOMITING; Start 05/31/16 at 14:45 Acetaminophen (Tylenol) 650 mg PRN Q4HRS PRN PO TEMP OVER 100.4F OR MILD PAIN; Start 05/31/16 at 14:45 Nitroglycerin (Nitrostat) 0.4 mg PRN Q5MIN PRN SL CHEST PAIN; Start 05/31/16 at 15:00 Potassium Chloride (Klor-Con) 40 meq 1X ONCE PO Last administered on 05/31/16 18:30; Start 05/31/16 at 16:30; Stop 05/31/16 at 16:35; Status DC Enoxaparin Sodium (Lovenox 80mg Syringe) 80 mg 1X ONCE SQ Last administered on 05/31/16 18:30; Start 05/31/16 at 16:30; Stop 05/31/16 at 16:36; Status DC Allopurinol (Zyloprim) 300 mg DAILY PO Last administered on 06/01/16 13:12; Start 06/01/16 at 09:00 Cyclobenzaprine HCl (Flexeril) 10 mg PRN TID PRN PO MUSLE SPASMS Last administered on 06/01/16 13:16; Start 05/31/16 at 19:15; Stop 06/01/16 at 21:00; Status DC Acetaminophen/ Hydrocodone Bitart (Lortab 5/325) 1 tab PRN Q6HRS PRN PO MODERATE - SEVERE PAIN; Start 05/31/16 at 19:15 Meclizine HCl (Antivert) 25 mg PRN TID PRN PO DIZZINESS; Start 05/31/16 at 19:30 Latanoprost (Xalatan) 1 drop QHS OU Last administered on 06/01/16 22:14; Start 05/31/16 at 21:00 Regadenoson (Lexiscan) 0.4 mg 1X ONCE IV Last administered on 06/01/16 10:44; Start 06/01/16 at 09:00; Stop 06/01/16 at 09:01; Status DC Furosemide (Lasix) 40 mg DAILY PO Last administered on 06/01/16 13:12; Start at 12:00 Albuterol/ Ipratropium (Duoneb) 3 ml RTQID NEB Last administered on 06/02/16 08 :35; Start 06/01/16 at 12:00 Metoprolol Succinate (Toprol Xl) 25 mg DAILY PO Last administered on 06/01/16 13:13; Start 06/01/16 at 12:00 Albuterol Sulfate (Ventolin Neb Soln) 2.5 mg PRN QID PRN NEB SHORTNESS OF BREATH; Start 06/01/16 at 12:00 Ondansetron HCl (Zofran Odt) 4 mg Q6HRS PO Last administered on 06/01/16 18:59 ; Start 06/01/16 at 12:00; Stop 06/01/16 at 19:02; Status DC Cyclobenzaprine HCl (Flexeril) 10 mg BID PO Last administered on 06/01/16 22:14 ; Start 06/01/16 at 21:00 Ondansetron HCl (Zofran Odt) 4 mg Q6HRS PRN PO nausea; Start 06/01/16 at 20:00 Active Scripts Active Reported Duoneb 0.5-3(2.5) Mg/3 Ml (Albuterol/Ipratropium) 3 Ml Ampul.neb 3 Ml NEB QID Ventolin Hfa Inhaler (Albuterol Sulfate) 18 Gm Hfa.aer.ad 2 Puff INH QID Zofran (Ondansetron Hcl) 4 Mg Tablet 1 Tab PO Q6HRS Metoprolol Succinate ( Xl ) (Metoprolol Succinate) 25 Mg Tab.er.24h 1 Tab PO DAILY Lasix (Furosemide) 40 Mg Tablet 1 Tab PO DAILY Travatan Z (Travoprost) 5 Ml Drops 1 Drop EACHEYE QHS [place] 5-325 Tablet (Acetaminophen/Hydrocodone Bitart) 1 Each Tablet 1 Tab PO PRN Q6HRS PRN Cyclobenzaprine Hcl 10 Mg Tablet 1 Tab PO PRN TID Allopurinol 300 Mg Tablet 1 Tab PO DAILY Meclizine Hcl 25 Mg Tablet 1 Tab PO PRN TID Vitals/I & O Vital Sign - Last 24 Hours 06/01/16 06/01/16 06/01/16 06/01/16 12:06 13:13 15:00 15:44 Temp 97.9 97.9 Pulse 66 95 Resp 18 B/P 126/65 158/71 Pulse Ox 97 95 O2 Delivery Room Air Nasal Cannula Room Air O2 Flow Rate 2.0 06/01/16 06/01/16 06/01/16 06/01/16 19:19 19:36 19:50 23:20 Temp 98.4 98.7 98.4 98.7 Pulse 112 95 Resp 20 18 B/P 142/65 107/55 Pulse Ox 94 96 O2 Delivery Room Air Room Air Room Air Room Air 206/02/16 06/02/16 03:35 07:00 08:37 Temp 98.8 98.0 98.8 98.0 Pulse 91 92 Resp 20 20 B/P 150/70 114/63 Pulse Ox 99 97 98 O2 Delivery Nasal Cannula Nasal Cannula Room Air O2 Flow Rate 2.0 2.0 Intake and Output 06/01/16 06/01/16 06/02/16 15:00 23:00 07:00 Intake Total 850 ml 120 ml Output Total 1200 ml 700 ml Balance -350 ml -580 ml LIANG WILDER MD Jun 02, 2016 10:35
[2016-06-02] MEDS: FUROSEMIDE 40 MG TABLET PO SCH (10:44)
[2016-06-02] MEDS: CYCLOBENZAPRINE 10 MG TABLET. PO SCH (10:44)
[2016-06-02] MEDS: ASPIRIN ENTERIC COATED 81 MG TABLET.DR. PO SCH (10:44)
[2016-06-02] MEDS: METOPROLOL SUCC 24HR ER 25 MG TAB.ER.24H. PO SCH (10:46)
[2016-06-02] MEDS: ALLOPURINOL 300 MG TABLET. PO SCH (10:46)
[2016-06-02 11:00] VITALS: BP 132/69
--- NOTE | 2016-06-02 11:21 | PDOC ---
CARDIO Progress Notes Date and Time Date of Service 06/02/2016 Time of Evaluation 1116 Subjective Subjective: No Chest Pain, No shortness of breath, No Palpitations, No Dizziness Comments: no chest pain since admission Vitals Vitals Vital Signs Date Time Temp Pulse Resp B/P Pulse Ox O2 Delivery O2 Flow Rate FiO2 06/02/16 10:46 96 139/69 06/02/16 08:37 98 Room Air 06/02/16 08:00 2.0 06/02/16 07:00 98.0 20 98.0 Weight Weight [ ] Input and Output Intake and Output Intake and Output 06/02/16 07:00 Intake Total 970 ml Output Total 1900 ml Balance -930 ml Intake Oral 970 ml Output Urine Total 1900 ml Laboratory Labs Laboratory Tests Test 06/01/16 16:00 D-Dimer (Sharda) 0.50ug/mlFEU (0.00-0.50) Physical Exam HEENT: Neck Supple W Full Motion Chest: Symmetric LUNGS: Clear to Auscultation Heart: S1S2, RRR (no significant ectopies overnight), other (tele: SR) Abdomen: Soft N/T Extremities: No Edema Neurology: alert, oriented, follow commands Assessment Assessment 1. Chest pain no recurrence echo with preserved LV function and no WMA MPI was non-ischemic and low risk study with LV hyperdynamic 2. HTN diastolic dysfunction - grade 1 on echo consider addition of ACEI or ARB to minimize this - defer to PCP in the outpatient setting 3. pulmonary HTN, moderate PA = 58 mm Hg on echo may benefit from evaluation by pulmonary Agreeable with discharge. AMILCAR MENDIOLA APRN Jun 02, 2016 11:21
[2016-06-02] MEDS ORDERED: LATANOPROST 0.005% OPHTH SOLUTION 2.5ML BOTTLE. OU SCH (13:13)
--- NOTE | 2016-06-02 22:30 | DS ---
DATE OF DISCHARGE: 06/02/2016 HISTORY OF PRESENT ILLNESS: This is a 81-year-old black female who is well known to me from followup in the office. The patient presented to the clinic on the day of admission with complaints of chest pain with associated shortness of breath, lightheadedness and nausea. The patient stated that her symptoms had begun approximately 3 days ago and she noticed a correlation with exertion. The patient stated that her chest pain did subside with rest in the clinic and EKG did show T-wave inversion in V1, V2 and V3. The patient was admitted to the hospital for telemetry and cardiac consult and workup for new-onset angina. SUMMARY OF STAY: Upon admission, cardiology was consulted. Cardiac enzymes were within normal limits. Her TSH was drawn which was also within normal limits at 1.965. Cholesterol panel revealed a triglyceride level of 174, cholesterol of 168, LDL 54 and HDL of 79. The patient did a nuclear medicine scan on 06/01/2016. The results of this did not show any evidence of ischemia or infarct. The results showed a normal left ventricular systolic function with an ejection fraction calculated at 89% and therefore the patient was categorized at low risk for cardiac events. An echo revealed an ejection fraction of 60%-65% with moderate triscuspid regurgitation. Based on the patient's presenting signs and symptoms, I did recommend that the patient have a cardiac cath; however, Cardiology did not feel the need for this secondary the echo and stress test being relatively within normal limits. They will proceed with a cardiac cath if the signs and symptoms do reoccur. Therefore, the patient is home with nitro sublingual p.r.n. as well as daily aspirin and instructions to follow up in the Emergency Room if signs and symptoms do reoccur. DIET: Regular. ACTIVITY: As tolerated. DISCHARGE MEDICATIONS: The patient will resume her previous home medications with the addition of nitro p.r.n. and aspirin 81 mg daily. FOLLOWUP: The patient is to follow up in our clinic in one week. The patient stated understanding of the discharge summary, denied questions and will follow up accordingly. LIANG WILDER MD DR: YAJAIRA/korin JOB#: [id number] / [id number]
== END 2016-06-02 13:00 | disposition home or self-care (01) | DRG 311 ==
LOC: 2 NORTH 13:22 → EDSEX 13:22 → 2 NORTH 14:20
PROVIDERS: ADMIT Family Medicine; ATTEND Family Medicine
DX: I20.9 Angina pectoris, unspecified (principal); K57.90 Diverticulosis of intestine, part unspecified, without perforation or abscess without bleeding; G47.00 Insomnia, unspecified; G47.33 Obstructive sleep apnea (adult) (pediatric); I12.9 Hypertensive chronic kidney disease with stage 1 through stage 4 chronic kidney disease, or unspecified chronic kidney disease; J44.9 Chronic obstructive pulmonary disease, unspecified; I27.2 Other secondary pulmonary hypertension; M41.9 Scoliosis, unspecified; Z96.641 Presence of right artificial hip joint; Z60.2 Problems related to living alone; R11.2 Nausea with vomiting, unspecified; M54.5 Low back pain; M25.512 Pain in left shoulder; R00.2 Palpitations; R42 Dizziness and giddiness; H40.9 Unspecified glaucoma; N18.3 Chronic kidney disease, stage 3 (moderate); Z82.49 Family history of ischemic heart disease and other diseases of the circulatory system; Z85.118 Personal history of other malignant neoplasm of bronchus and lung; Z98.49 Cataract extraction status, unspecified eye; Z90.49 Acquired absence of other specified parts of digestive tract; Z87.440 Personal history of urinary (tract) infections; Z85.89 Personal history of malignant neoplasm of other organs and systems; Z86.718 Personal history of other venous thrombosis and embolism; Z79.899 Other long term (current) drug therapy
CPT/HCPCS: 36415; 71010; 78452; 80053; 80061; 82553; 83735; 83880; 84443; 84484; 85027; 85379; 93005; 93017; 93306; 94250; 94640; 96374; 96375; 96376; A9500; J1650; J2785; J7620; Q0162

== ENCOUNTER 2016-09-06 09:55 | Inpatient (IN) | payer MEDICARE, MEDICAID ==
[~2016-09-06] VITALS: Ht 152.4 cm; Wt 71.9 kg
[~2016-09-06 09:55] MED LIST changes: +ASPI81TA9 PO; +FURO-68 PO; +IPRA3AMP NEB; +METO25TA9 PO; +NITR0.4T SL; +ONDA4TAB7 PO; +VENTOLIN HFA18 GM INH
[2016-09-06] MEDS ORDERED: IV NORMAL SALINE 1000ML BAG 1,000 ML IV SCH (10:28)
[2016-09-06] MEDS ORDERED: 0.9 % SODIUM CHLORIDE 10 ML DISP.SYRIN. IV PRN (10:30)
[2016-09-06] MEDS ORDERED: HYDROmorphone 2 MG/ML VIAL IV ONE (10:30)
[2016-09-06] MEDS ORDERED: ASPIRIN CHEWABLE 81 MG TABLET. PO ONE (10:30)
--- NOTE | 2016-09-06 10:35 | PHYS DOC ---
Past Medical History Past Medical History: Anxiety, Cancer, COPD Additional Past Medical Histor: tachycardia syndrome Past Surgical History: Cholecystectomy, Hysterectomy (partial hysterectomy) Additional Past Surgical Histo: bunionectomy, lower back surgery Smoking: Quit Greater Than 1 Year Alcohol Use: None Drug Use: None Adult General Chief Complaint Chief Complaint: COUGH HPI HPI This 81-year-old black female with a history of COPD, prior lung cancer prior issues with tachydysrhythmia presents with chest pain that began with productive cough shortness of breath with pain radiation to the back. Patient was seen by her primary doctor yesterday feeling fine until this morning when she developed an increasingly productive cough described as green and discharge with no sore throat or change in voice but has had some shortness of breath and chest pain underneath each for breast radiation to the back. The chest pain is worse with breathing movements and cough is not unlike her prior experience in 2015. Patient denies any trauma she does have some lightheaded dizziness with pain as well as headache described as a throbbing aching pain that did not start suddenly but is a bandlike squeezing pressure on the top of her head. She does not have headaches often but this is very severe to her. She denies any problems word finding denies any problems with vision changes or hearing loss. She denies any photophobia denies any focal neurologic deficits. She denies any sick contacts, recent travel S at the country, recent antibiotics. Denies any fevers, chills, nausea, vomiting, diarrhea. PAST MEDICAL HISTORY: Remarkable for COPD, has a history of carcinoma of the lung possible anxiety and a tachydysrhythmia.. She has some baseline shortness of breath from this. She has had some recent labyrinthitis and near syncope. Review of Systems Review of Systems Constitutional: Denies fever or chills [] Eyes: Denies change in visual acuity, redness, or eye pain [] HENT: Denies nasal congestion or sore throat [] Respiratory: Does have a cough is productive with shortness of breath. Cardiovascular: No additional information not addressed in HPI [] GI: Denies abdominal pain, nausea, vomiting, bloody stools or diarrhea [] : Denies dysuria or hematuria [] Musculoskeletal: Does complain of chronic lower leg pain and swelling in the left calf and chronic bilateral knee pain for which she says she has to have replacement surgery. Integument: Denies rash or skin lesions [] Neurologic: Patient is a generalized headache in the front described as a throbbing ache not worst of life and sudden onset but very severe. Endocrine: Denies polyuria or polydipsia [] Current Medications Current Medications Current Medications Medications (Trade) Dose Ordered Sig/Fortunato Start Time Stop Time Status Last Admin Dose Admin Aspirin (Children'S Aspirin) 324 mg 1X ONCE 09/06/16 10:30 09/06/16 10:33 DC 09/06/16 11:10 324 MG Azithromycin 500 mg/Azithromycin 250 ml @ 250 mls/hr 1X ONCE 09/06/16 11:45 09/06/16 12:44 Ceftriaxone Sodium 50 ml @ 100 mls/hr 1X ONCE 09/06/16 11:45 09/06/16 12:14 DC Hydromorphone HCl (Dilaudid) 0.5 mg 1X ONCE 09/06/16 10:30 09/06/16 10:33 DC 09/06/16 11:10 0.5 MG Iohexol (Omnipaque 300 Mg/ml) 60 ml 1X ONCE 09/06/16 11:45 09/06/16 11:46 DC Lorazepam (Ativan) 1 mg 1X ONCE 09/06/16 10:30 09/06/16 10:33 DC 09/06/16 11:10 1 MG Sodium Chloride (Normal Saline Flush) 10 ml QSHIFT PRN 09/06/16 10:30 Allergies Allergies Allergies Coded Allergies Type Severity Reaction Last Updated Verified No Known Allergies Allergy Unknown 01/05/15 Yes Physical Exam Physical Exam Constitutional: Obese female in discomfort nontoxic in appearance able to complete 3-5 word sentences similarly when seen with waves of pain across her forehead and her chest wall When she coughs. HENT: Normocephalic, atraumatic, bilateral external ears normal, oropharynx moist, no oral exudates, nose normal. [] Eyes: PERRLA, EOMI, conjunctiva normal, no discharge. [] Neck: Normal range of motion, no tenderness, supple, no stridor. [] Cardiovascular:Heart rate regular rhythm, no murmur. Reproducible chest wall pain on examination. Lungs & Thorax: Bilateral breath sounds clear to auscultation [] Abdomen: Bowel sounds normal, soft, no tenderness, no masses, no pulsatile masses. [] Skin: Warm, dry, no erythema, no rash. [] Extremities: No tenderness, no cyanosis, no clubbing, ROM intact, she does have some edema the reduction is bilaterally +1 pitting edema with no Homans sign but mild tenderness to palpation in the left calf. Neurologic: Alert and oriented X 3, normal motor function, normal sensory function, no focal deficits noted. [] Psychologic: Patient is mildly anxious but able answer all questions without issue. Current Patient Data Vital Signs Vital Signs Date Time Temp Pulse Resp B/P (MAP) Pulse Ox O2 Delivery O2 Flow Rate FiO2 09/06/16 11:38 108 2 138/63 (88) 92 Nasal Cannula 3.0 09/06/16 10:19 99.9 99.9 Lab Values Laboratory Tests Test 09/06/16 10:46 09/06/16 10:51 White Blood Count 19.6 x10^3/uL (4.0-11.0) H Red Blood Count 3.87 x10^6/uL (3.50-5.40) Hemoglobin 11.5 g/dL (12.0-15.5) L Hematocrit 35.4 % (36.0-47.0) L Mean Corpuscular Volume 92 fL (79-100) Mean Corpuscular Hemoglobin 30 pg (25-35) Mean Corpuscular Hemoglobin Concent 33 g/dL (31-37) Red Cell Distribution Width 15.8 % (11.5-14.5) H Platelet Count 200 x10^3/uL (140-400) Neutrophils (%) (Auto) 90 % (31-73) H Lymphocytes (%) (Auto) 6 % (24-48) L Monocytes (%) (Auto) 4 % (0-9) Eosinophils (%) (Auto) 0 % (0-3) Basophils (%) (Auto) 0 % (0-3) Neutrophils # (Auto) 17.7 x10^3uL (1.8-7.7) H Lymphocytes # (Auto) 1.1 x10^3/uL (1.0-4.8) Monocytes # (Auto) 0.8 x10^3/uL (0.0-1.1) Eosinophils # (Auto) 0.0 x10^3/uL (0.0-0.7) Basophils # (Auto) 0.0 x10^3/uL (0.0-0.2) Platelet Estimate Pending D-Dimer (Sharda) 1.58 ug/mlFEU (0.00-0.50) H Sodium Level 139 mmol/L (136-145) Potassium Level 4.2 mmol/L (3.5-5.1) Chloride Level 105 mmol/L (98-107) Carbon Dioxide Level 26 mmol/L (21-32) Anion Gap 8 (6-14) Blood Urea Nitrogen 23 mg/dL (7-20) H Creatinine 1.1 mg/dL (0.6-1.0) H Estimated GFR (Cockcroft-Gault) 58.0 Glucose Level 103 mg/dL (70-99) H Calcium Level 9.1 mg/dL (8.5-10.1) Creatine Kinase 110 U/L (26-192) Creatine Kinase MB (Mass) 0.7 ng/mL (0.0-3.6) Creatine Kinase MB Relative Index 0.6 % (0-4) Troponin I Quantitative < 0.017 ng/mL (0.000-0.055) VN-Qel-P-Type Natriuretic Peptide 407 pg/mL (0-449) Lipase 47 U/L (73-393) L Thyroid Stimulating Hormone (TSH) 1.921 uIU/mL (0.358-3.74) POC Troponin I 0.00 ng/ml (<0.08) Laboratory Tests 09/06/16 10:46 Laboratory Tests 09/06/16 10:46 EKG EKG EKG time 10:08 AM 09/06/[address] Vail heart rate 117 sinus tachycardia with left atrial enlargement and nonspecific T-wave inversion in V1 and V2 which is not new question so depression in V5 V6 which may resent some abnormality like ischemia. [] Radiology/Procedures Radiology/Procedures [] Signed PATIENT: VITA BOWSER ACCOUNT: [id number] : 1935 LOCATION: ER AGE: 81 SEX: F EXAM STATUS: REG ER ORD. PHYSICIAN: DEE VAIL MD REASON: chest pain PROCEDURE: PORTABLE CHEST 1V Indication: Chest pain and cough. Time of exam 11 0 4:00 AM Correlation is made with prior chest from 05/31/2016. The heart size is stable. There is some increasing density in the left base since prior exam, partially obscuring the left hemidiaphragm. This would be consistent with some developing infiltrate or atelectasis. The right lung is clear. Calcified granuloma left midlung is stable. Impression: Developing infiltrate or atelectasis in the left base since exam from 05/31/2016. DICTATED and SIGNED BY: PEDRO BRAXTON MD DATE: 09/06/16 1110 CC: LIANG WILDER MD; DEE VAIL MD ~ IMAGING REPORT Signed PATIENT: VITA BOWSER ACCOUNT: [id number] : 1935 LOCATION: ER AGE: 81 SEX: F EXAM STATUS: REG ER ORD. PHYSICIAN: DEE VAIL MD REASON: headache PROCEDURE: CT HEAD WO CONTRAST Indication: Headache. Axial imaging through the brain was performed without contrast. No prior studies are available for comparison. The ventricles and sulci are within normal limits. No sulcal effacement, midline shift or hemorrhage is detected. The cisterns are patent. The visualized paranasal sinuses are clear. Impression: No acute intracranial process is detected. PQRS Compliance Statement: One or more of the following individualized dose reduction techniques were utilized for this examination: 1. Automated exposure control 2. Adjustment of the mA and/or kV according to patient size 3. Use of iterative reconstruction technique DICTATED and SIGNED BY: PEDRO BRAXTON MD DATE: 09/06/16 1113 CC: LIANG WILDER MD; DEE VAIL MD ~ Signed PATIENT: VITA BOWSER ACCOUNT: [id number] : 1935 LOCATION: ER AGE: 81 SEX: F EXAM STATUS: REG ER ORD. PHYSICIAN: DEE VAIL MD REASON: leg pain with shortness of breath tachycardia and chest pain PROCEDURE: VENOUS LOWER EXTREMITY LEFT Exam performed: Left lower extremity venous Doppler. Clinical Indication: Left leg pain and swelling Date of Service:05/10/17 Comparison : None available Discussion: Multiple longitudinal and transverse high resolution real-time images of the venous system of left lower extremity were obtained with color and Doppler sampling and spectral analysis. The common femoral, superficial femoral, popliteal and proximal calf veins are all patent and demonstrate normal flow and compressibility. Normal respiratory phasicity and augmentation is present. Impression: Normal color duplex ultrasound of the venous system of left lower extremity. DICTATED and SIGNED BY: JAMI AREVALO MD DATE: 09/06/16 3311 CC: LIANG WILDER MD; DEE VAIL MD ~ Course & Med Decision Making Course & Med Decision Making Pertinent Labs and Imaging studies reviewed. (See chart for details) I reviewed patient's notes from prior admissions as well as [] Signs and nursing notes which I agree with. Patient noted to be tachycardic and mildly tachypnea on my examination. Patient's chest x-ray demonstrates early left lower lobe pneumonia, troponin, negative EKG with only sinus tachycardia noted no evidence of ischemia. D-dimer is elevated likely secondary to localized infection the lung unfortunately with left lower extremity edema pain and positive d-dimer CT edge of the chest been ordered. Even before results are pending paged Dr. PANCHO Beyer primary care doctor for this patient. He'll discuss case and agreed on admission given her continued discomfort of chest pain shortness of breath and tachycardia. Her tachycardia is not new long-standing and old but given her abnormal vital signs were admitted to the hospital for fluids IV hydration, antibiotics and close follow-up with her primary care doctor. Impression: Chest pain, pneumonia, headache, leukocytosis, hyperglycemia, dyspnea, tachycardia long-standing. Disposition admission to the hospital under the care of Dr. PANCHO Beyer reevaluation of her psychosis and suspected pneumonia pending CT imaging of the chest rule out PE. Dragon Disclaimer Dragon Disclaimer This electronic medical record was generated, in whole or in part, using a voice recognition dictation system. Departure Departure Referrals: LIANG WILDER MD (PCP) DEE VAIL MD September 06, 2016 10:35
[2016-09-06 10:58] LABS: BASO % 0 % (0-3); EOS % 0 % (0-3); HEMATOCRIT 35.4 % (36.0-47.0); HEMOGLOBIN 11.5 g/dL (12.0-15.5); LYMPH # 1.1 x10^3/uL (1.0-4.8); LYMPH % 6 % (24-48); MEAN CORPUSCULAR HEMOGLOBIN 30 pg (25-35); MEAN CORPUSCULAR HGB CONC 33 g/dL (31-37); MEAN CORPUSCULAR VOLUME 92 fL (79-100); MONO % 4 % (0-9); NEUT % 90 % (31-73); PLATELET COUNT 200 x10^3/uL (140-400); RED BLOOD COUNT 3.87 x10^6/uL (3.50-5.40); RED CELL DISTRIBUTION WIDTH 15.8 % (11.5-14.5); WHITE BLOOD COUNT 19.6 x10^3/uL (4.0-11.0)
[2016-09-06 11:07] LABS: CALCIUM 9.1 mg/dL (8.5-10.1); CREATININE 1.1 mg/dL (0.6-1.0); POTASSIUM 4.2 mmol/L (3.5-5.1)
--- NOTE | 2016-09-06 11:13 | RAD ---
Indication: Chest pain and cough. Time of exam 11 0 4:00 AM Correlation is made with prior chest from 05/31/2016. The heart size is stable. There is some increasing density in the left base since prior exam, partially obscuring the left hemidiaphragm. This would be consistent with some developing infiltrate or atelectasis. The right lung is clear. Calcified granuloma left midlung is stable. Impression: Developing infiltrate or atelectasis in the left base since exam from 05/31/2016.
--- NOTE | 2016-09-06 11:15 | EKG ---
[facility] [address] [place] [address] Test Date: 2016-09-06 Test Time: 10:08:17 Pat Name: VITA BOWSER Department: Room: Gender: F Title I Director: : 1935 Requested By: DEE VAIL Order Number: [id number] Reading MD: Shubham Stratton Measurements Intervals Prospect Rate: 117 P: 40 OR: 144 QRS: -1 QRSD: 72 T: 55 QT: 362 QTc: 510 Interpretive Statements SINUS TACHYCARDIA NON-SPECIFIC ST/T CHANGES Electronically Signed On 09-11-2016 9:17:36 CDT by Shubham Stratton
--- NOTE | 2016-09-06 11:16 | RAD ---
Indication: Headache. Axial imaging through the brain was performed without contrast. No prior studies are available for comparison. The ventricles and sulci are within normal limits. No sulcal effacement, midline shift or hemorrhage is detected. The cisterns are patent. The visualized paranasal sinuses are clear. Impression: No acute intracranial process is detected. PQRS Compliance Statement: One or more of the following individualized dose reduction techniques were utilized for this examination: 1. Automated exposure control 2. Adjustment of the mA and/or kV according to patient size 3. Use of iterative reconstruction technique
[2016-09-06 11:34] LABS: CKMB MASS 0.7 ng/mL (0.0-3.6)
[2016-09-06] MEDS ORDERED: [UNRECOGNIZED DRUG - OTHER] IV ONE (11:45)
[2016-09-06] MEDS ORDERED: AZITHROMYCIN IV ONE (11:45)
[2016-09-06] MEDS ORDERED: IOHEXOL 300 MG/ML 75 ML VIAL IV ONE (11:45)
--- NOTE | 2016-09-06 11:47 | RAD ---
Exam performed: Left lower extremity venous Doppler. Clinical Indication: Left leg pain and swelling Date of Service:09/06/16 Comparison : None available Discussion: Multiple longitudinal and transverse high resolution real-time images of the venous system of left lower extremity were obtained with color and Doppler sampling and spectral analysis. The common femoral, superficial femoral, popliteal and proximal calf veins are all patent and demonstrate normal flow and compressibility. Normal respiratory phasicity and augmentation is present. Impression: Normal color duplex ultrasound of the venous system of left lower extremity.
[2016-09-06] MEDS ORDERED: ACETAMINOPHEN 325 MG TABLET. PO PRN (12:15)
[2016-09-06] MEDS ORDERED: fentaNYL PF VIAL 100 MCG/2 ML VIAL IV PRN (12:15)
[2016-09-06] MEDS ORDERED: ONDANSETRON PF 4 MG/2 ML VIAL. IV PRN (12:15)
[2016-09-06] MEDS ORDERED: BREO (12:32)
[2016-09-06] MEDS ORDERED: VENTOLIN (12:32)
[2016-09-06 12:55] LABS: PLT ESTIMATE ADEQUATE (ADEQUATE)
--- NOTE | 2016-09-06 12:57 | RAD ---
Indication: Shortness of air with elevated d-dimer. Axial imaging through the chest was performed after the administration of intravenous contrast and utilizing the CT angiography protocol. Multiplanar, 3-D and MIP reformations were also performed. Evaluation of the pulmonary arterial system is without evidence of thromboembolism. No filling defects are identified. The thoracic aorta is calcified but nonaneurysmal. No dissection is seen. The heart is enlarged. No pericardial or pleural fluid is identified. No definite axillary, hilar or mediastinal lymphadenopathy is detected. Parenchymal evaluation demonstrates a calcified granuloma in the left upper lobe. There is consolidation identified in the left lower lobe, suggestive of pneumonia. No discrete mass is seen. The upper abdomen demonstrates a low density mass in the upper pole of the right kidney, 3.5 cm in size and most suggestive of a cyst. Impression: 1. No evidence of pulmonary embolism or thoracic aortic dissection. 2. Left lower lobe consolidation suggestive of pneumonia. 3. Right upper pole renal cyst. PQRS Compliance Statement: One or more of the following individualized dose reduction techniques were utilized for this examination: 1. Automated exposure control 2. Adjustment of the mA and/or kV according to patient size 3. Use of iterative reconstruction technique
[2016-09-06 15:00] VITALS: BP 106/60
[2016-09-06] MEDS ORDERED: NITROGLYCERIN SUBLINGUAL 0.4 MG BOTTLE OF 25. SL PRN (16:30)
--- NOTE | 2016-09-06 16:33 | PDOC ---
GENERAL General: see dictated H&P. Problems: VITAL SIGNS Vital Signs: Vital Signs Date Time Temp Pulse Resp B/P (MAP) Pulse Ox O2 Delivery O2 Flow Rate FiO2 09/06/16 15:00 97.7 94 19 106/60 (75) 98 Room Air 97.7 09/06/16 12:08 2.0 ALLERGIES Allergies: Allergies Coded Allergies Type Severity Reaction Last Updated Verified strawberry Allergy Unknown 09/06/16 Yes MEDS Medications: Current Medications Medications (Trade) Dose Ordered Sig/Fortunato Start Time Stop Time Status Last Admin Dose Admin Acetaminophen (Tylenol) 650 mg PRN Q4HRS PRN 09/06/16 12:15 09/07/16 12:14 Aspirin (Children'S Aspirin) 324 mg 1X ONCE 09/06/16 10:30 09/06/16 10:33 DC 09/06/16 11:10 324 MG Azithromycin 500 mg/Azithromycin 250 ml @ 250 mls/hr 1X ONCE 09/06/16 11:45 09/06/16 12:44 DC 09/06/16 12:27 250 MLS/HR Ceftriaxone Sodium 50 ml @ 100 mls/hr 1X ONCE 09/06/16 11:45 09/06/16 12:14 DC Fentanyl Citrate (Fentanyl 2ml Vial) 50 mcg PRN Q2HR PRN 09/06/16 12:15 09/07/16 12:14 Hydromorphone HCl (Dilaudid) 0.5 mg 1X ONCE 09/06/16 10:30 09/06/16 10:33 DC 09/06/16 11:10 0.5 MG Iohexol (Omnipaque 300 Mg/ml) 60 ml 1X ONCE 09/06/16 11:45 09/06/16 11:46 DC 09/06/16 12:42 60 ML Lorazepam (Ativan) 1 mg 1X ONCE 09/06/16 10:30 09/06/16 10:33 DC 09/06/16 11:10 1 MG Ondansetron HCl (Zofran) 4 mg PRN Q8HRS PRN 09/06/16 12:15 09/07/16 12:14 Sodium Chloride (Normal Saline Flush) 10 ml QSHIFT PRN 09/06/16 10:30 LAB Lab: Laboratory Tests Test 09/06/16 10:46 09/06/16 10:51 09/06/16 12:05 White Blood Count 19.6 x10^3/uL (4.0-11.0) Red Blood Count 3.87 x10^6/uL (3.50-5.40) Hemoglobin 11.5 g/dL (12.0-15.5) Hematocrit 35.4 % (36.0-47.0) Mean Corpuscular Volume 92 fL (79-100) Mean Corpuscular Hemoglobin 30 pg (25-35) Mean Corpuscular Hemoglobin Concent 33 g/dL (31-37) Red Cell Distribution Width 15.8 % (11.5-14.5) Platelet Count 200 x10^3/uL (140-400) Neutrophils (%) (Auto) 90 % (31-73) Lymphocytes (%) (Auto) 6 % (24-48) Monocytes (%) (Auto) 4 % (0-9) Eosinophils (%) (Auto) 0 % (0-3) Basophils (%) (Auto) 0 % (0-3) Neutrophils # (Auto) 17.7 x10^3uL (1.8-7.7) Lymphocytes # (Auto) 1.1 x10^3/uL (1.0-4.8) Monocytes # (Auto) 0.8 x10^3/uL (0.0-1.1) Eosinophils # (Auto) 0.0 x10^3/uL (0.0-0.7) Basophils # (Auto) 0.0 x10^3/uL (0.0-0.2) Segmented Neutrophils % 74 % (35-66) Band Neutrophils % 16 % (0-9) Lymphocytes % 8 % (24-48) Monocytes % 2 % (0-10) Dohle Bodies Present Platelet Estimate Adequate (ADEQUATE) D-Dimer (Sharda) 1.58 ug/mlFEU (0.00-0.50) Sodium Level 139 mmol/L (136-145) Potassium Level 4.2 mmol/L (3.5-5.1) Chloride Level 105 mmol/L (98-107) Carbon Dioxide Level 26 mmol/L (21-32) Anion Gap 8 (6-14) Blood Urea Nitrogen 23 mg/dL (7-20) Creatinine 1.1 mg/dL (0.6-1.0) Estimated GFR (Cockcroft-Gault) 58.0 Glucose Level 103 mg/dL (70-99) Calcium Level 9.1 mg/dL (8.5-10.1) Creatine Kinase 110 U/L (26-192) Creatine Kinase MB (Mass) 0.7 ng/mL (0.0-3.6) Creatine Kinase MB Relative Index 0.6 % (0-4) Troponin I Quantitative < 0.017 ng/mL (0.000-0.055) XT-Ohv-V-Type Natriuretic Peptide 407 pg/mL (0-449) Lipase 47 U/L (73-393) Thyroid Stimulating Hormone (TSH) 1.921 uIU/mL (0.358-3.74) Bedside Troponin I 0.00 ng/ml (<0.08) Lactic Acid Level 0.9 mmol/L (0.4-2.0) LIANG WILDER MD September 06, 2016 16:33
[2016-09-06] MEDS ORDERED: ONDANSETRON ODT 4 MG TAB.RAPDIS. PO PRN (16:45)
[2016-09-06] MEDS: IPRATRPIUM/ALBUTEROL 0.5/2.5MG 3 ML NEBU. NEB SCH ×2 (17:00→19:57)
[2016-09-06] MEDS ORDERED: NON FORMULARY ITEM (Albuterol Sulfate (Ventolin Hfa Inhaler) 2 PUFF) INH SCH (17:00)
[2016-09-06] MEDS: METOPROLOL SUCC 24HR ER 25 MG TAB.ER.24H. PO SCH (17:59)
[2016-09-06] MEDS: HYDROcodone/APAP 5/325MG 1 TAB TABLET PO PRN (17:59)
[2016-09-06 19:00] VITALS: BP 88/40
--- NOTE | 2016-09-06 19:42 | HP ---
ADMIT DATE: 09/06/2016 CHIEF COMPLAINT AND HISTORY OF PRESENT ILLNESS: This 81-year-old black female is well known to me from followup in the office. She has a history of COPD and a prior remote history of lung cancer. She was seen in the office on the day prior to admission with complaint of ____ despite the fact she was breathing much easier with a Breo inhaler, she developed a cough, she was switched to ____ started on the day of admission, but during the night developed pleuritic chest pain, shortness of breath, cough and subjectively fevers, was brought to the Emergency Room where she was found to have pneumonia and admitted for the same with an exacerbation of her COPD due to the same. PAST MEDICAL HISTORY: Remarkable for COPD, the prior lung cancer, anxiety. She has a history of some arrhythmias. PAST SURGICAL HISTORY: Remarkable for hysterectomy, cholecystectomy, bunionectomy, low back surgery. SOCIAL HISTORY: She is a reformed smoker, nondrinker, does not use drugs. , lives at home alone in an apartment type setting, who has a very supportive family. FAMILY HISTORY: Noncontributory. MEDICATIONS: Brought with the patient, listed on the computer and have been addressed. ALLERGIES: SHE IS ALLERGIC TO STRAWBERRIES. REVIEW OF SYSTEMS: As mentioned above. PHYSICAL EXAMINATION: GENERAL: She is a well-developed, well-nourished black female appearing elder than her stated age. VITAL SIGNS: Stable. She was initially afebrile. HEAD, EYES, EARS, NOSE AND THROAT: Unremarkable. NECK: Supple without adenopathy or thyromegaly. CHEST: Reveals diminished breath sounds bilaterally. HEART: Regular rate and rhythm without S3, S4 or murmur. ABDOMEN: Soft, nontender without hepatosplenomegaly or masses. EXTREMITIES: Without cyanosis or clubbing. There is trace edema. NEUROLOGIC: She is intact. LABORATORY DATA: Initial white blood count was 19,600 with a left shift. Electrolytes and kidney functions are within normal limits as her blood sugar. Troponin was negative. ProBNP was normal. TSH was normal. Chest x-ray showed developing infiltrate or atelectasis in the left base. Because of her headache, which is likely pneumonia related, she had a CT head in the Emergency Room that was negative. She had a left lower extremity Doppler that was negative also in the Emergency Room. IMPRESSION: 1. Pneumonia with exacerbation of chronic obstructive pulmonary disease due to the same. 2. Other problems listed above. PLAN: The patient has been admitted, IV antibiotics ____ etc. will be maintained and the patient will be monitored, managed and treated appropriately. LIANG WILDER MD DR: YAJAIRA/korin JOB#: [id number] / [id number]
[2016-09-06] MEDS: LATANOPROST 0.005% OPHTH SOLUTION 2.5ML BOTTLE. OU SCH (21:34)
[2016-09-06 23:00] VITALS: BP 119/56
[2016-09-07 03:00] VITALS: BP 111/59
--- NOTE | 2016-09-07 06:50 | ACF ---
Admission Forms Criteria TELEMETRY CARE Telemetry Admission Guidelines (Place 'X' for any and all applicable criteria): Admission to telemetry [A] may be indicated for ANY ONE of the following(1)(2)(3 )(4)(5): [X]I. Cardiac disease, including ANY ONE of the following (9)(10)(11)(12)(13 ): [ ]a) Postacute ID [ ]b) Low-risk patients with ST-segment elevation ID who have undergone successful percutaneous coronary intervention [ ]c) Unstable angina [ ]d) Suspected ID (until it is ruled out) [ ]e) Post cardiac surgery (first 48 to 72 hours unless complications occur) [X]f) Acute arrhythmias (including significant tachycardia or bradycardia) [B] [ ]g) Firing of an implantable cardioverter defibrillator [C] [ ]h) Suspected pacemaker or implantable cardioverter defibrillator malfunction (10) [ ]i) New administration or adjustment of an antiarrhythmic drug [D ] [ ]j) Child admitted for acute congestive heart failure [ ]j) Long QT syndrome [ ]k) Advanced heart block (eg, second-degree Mobitz type II, third- degree heart block) [ ]l) Acute myocarditis or pericarditis [ ]m) Short-term (ambulatory or inpatient) monitoring after a cardiac procedure as indicated by ANY ONE of the following [E]: [ ]i) Electrophysiologic studies [ ]ii) Percutaneous coronary intervention with stent placement [ ]iii) Pacemaker placement with cardiac conduction defect [ ]iv) Implantable cardiac defibrillator placement [ ]II. Drug overdose or poisoning with substance that causes arrhythmias or QT prolongation (eg, phenothiazines, sympathomimetic agents, cyclic antidepressants, digitalis, antiarrhythmic drugs)(15) [ ]III. Short-term (ambulatory or inpatient) monitoring after therapeutic or diagnostic procedure requiring conscious sedation or anesthesia (eg, endoscopy, elective cardioversion) [ ]IV. Acute cerebrovascular even[F](18) [ ]V. Massive blood transfusion (eg, at least 10 units of packed red blood cells in 24 hours) [ ]. Variceal bleeding after endoscopy, sclerotherapy, or IV vasopressin [ ]VII. Uncorrected electrolyte abnormalities associated with an increased risk of dangerous arrhythmia [G]; examples include [ ]a) Hyperkalemia with attributable ECG changes [ ]b) Potassium greater than 6.5 mmol/L (mEq/L) in a patient without history of chronic renal disease [ ]c) Prolonged QT attributed to hypokalemia, hypomagnesemia, or hypocalcemia [ ]VIII.Unexplained syncope or other neurologic event suspected of being due to arrhythmia due to a finding that increases risk; examples include(19)(20)(21): [ ]a) High-risk ECG findings (eg, bifascicular block, bradycardia, abnormal QT interval, ventricular pre- excitation) [ ]b) History of previous syncope due to arrhythmia [ ]c) Abnormal ventricular function (eg, reduced ejection fraction ) [ ]d) Exertional or supine syncope [ ]e) Concerning syncope characteristics (eg, sudden loss of consciousness without prodrome) [ ]f) Family history of sudden [ ]g) Use of arrhythmogenic medication [ ]h) Suspected cardiac ischemia [ ]i) Known channelopathy (eg, long QT syndrome, Brugada syndrome, or catecholaminergic paroxysmal ventricular tachycardia) [ ]j) Known structural heart disease (eg, hypertrophic cardiomyopathy , severe valvular disease) [ ]k) Palpitations preceding syncope The original [facility] content created by [facility] has been revised. The portions of the content which have been revised are identified through the use of italic text or in bold, and [facility] has neither reviewed nor approved the modified material. All other unmodified content is copyright [facility]. Please see references footnoted in the original [facility] edition 2016 Admission Criteria Met?: Yes MARTIN FERNANDEZ September 07, 2016 06:50
[2016-09-07 07:00] VITALS: BP 122/45
[2016-09-07] MEDS: IPRATRPIUM/ALBUTEROL 0.5/2.5MG 3 ML NEBU. NEB SCH ×4 (07:01→19:41)
--- NOTE | 2016-09-07 08:27 | PDOC ---
GENERAL General: vss and afebrile. awake and alert. less pleuritic pain today. wbc 19K on admit with LLL pneumonia on cxr and ct. chest with decreased breath sounds and heart regular. continue same. Problems: VITAL SIGNS Vital Signs: Vital Signs Date Time Temp Pulse Resp B/P (MAP) Pulse Ox O2 Delivery O2 Flow Rate FiO2 09/07/16 07:02 95 Nasal Cannula 2.0 09/07/16 03:00 98.1 86 20 111/59 (76) 98.1 I & O I & O Intake and Output 09/07/16 07:00 Intake Total 1020 ml Balance 1020 ml Intake Oral 20 ml IV Total 1000 ml # Voids 2 ALLERGIES Allergies: Allergies Coded Allergies Type Severity Reaction Last Updated Verified strawberry Allergy Intermediate 09/07/16 Yes MEDS Medications: Current Medications Medications (Trade) Dose Ordered Sig/Fortunato Start Time Stop Time Status Last Admin Dose Admin Acetaminophen (Tylenol) 650 mg PRN Q4HRS PRN 09/06/16 12:15 09/07/16 12:14 Acetaminophen/ Hydrocodone Bitart (Lortab 5/325) 1 tab PRN Q6HRS PRN 09/06/16 16:30 09/06/16 17:59 1 TAB Albuterol/ Ipratropium (Duoneb) 3 ml QID 09/06/16 17:00 09/07/16 07:01 3 ML Allopurinol (Zyloprim) 300 mg DAILY 09/07/16 09:00 Aspirin (Children'S Aspirin) 324 mg 1X ONCE 09/06/16 10:30 09/06/16 10:33 DC 09/06/16 11:10 324 MG Aspirin (Ecotrin) 81 mg DAILYWBKFT 09/07/16 08:00 Azithromycin 250 ml @ 250 mls/hr DAILY10 09/07/16 10:00 UNV Azithromycin 500 mg/Azithromycin 250 ml @ 250 mls/hr 1X ONCE 09/06/16 11:45 09/06/16 12:44 DC 09/06/16 12:27 250 MLS/HR Azithromycin 500 mg/Sodium Chloride 250 ml @ 250 mls/hr Q24H 09/07/16 12:00 Ceftriaxone Sodium 1 gm/ Sodium Chloride 50 ml @ 100 mls/hr Q24H 09/06/16 17:00 09/06/16 17:59 100 MLS/HR Ceftriaxone Sodium 50 ml @ 100 mls/hr 1X ONCE 09/06/16 11:45 09/06/16 12:14 DC Cyclobenzaprine HCl (Flexeril) 10 mg PRN TID PRN 09/06/16 16:30 Fentanyl Citrate (Fentanyl 2ml Vial) 50 mcg PRN Q2HR PRN 09/06/16 12:15 09/07/16 12:14 Furosemide (Lasix) 40 mg DAILY 09/07/16 09:00 Hydromorphone HCl (Dilaudid) 0.5 mg 1X ONCE 09/06/16 10:30 09/06/16 10:33 DC 09/06/16 11:10 0.5 MG Iohexol (Omnipaque 300 Mg/ml) 60 ml 1X ONCE 09/06/16 11:45 09/06/16 11:46 DC 09/06/16 12:42 60 ML Latanoprost (Xalatan) 1 drop QHS 09/06/16 21:00 09/06/16 21:34 1 DROP Lorazepam (Ativan) 1 mg 1X ONCE 09/06/16 10:30 09/06/16 10:33 DC 09/06/16 11:10 1 MG Metoprolol Succinate (Toprol Xl) 25 mg DAILY 09/06/16 17:00 09/06/16 17:59 25 MG Nitroglycerin (Nitrostat) 0.4 mg PRN Q5MIN PRN 09/06/16 16:30 Non-Formulary Medication 2 puff QID 09/06/16 17:00 UNV Ondansetron HCl (Zofran Odt) 4 mg PRN Q8HRS PRN 09/06/16 16:45 Ondansetron HCl (Zofran) 4 mg PRN Q8HRS PRN 09/06/16 12:15 09/07/16 12:14 Sodium Chloride (Normal Saline Flush) 10 ml QSHIFT PRN 09/06/16 10:30 LAB Lab: Laboratory Tests Test 09/06/16 10:46 09/06/16 10:51 09/06/16 12:05 09/06/16 18:15 White Blood Count 19.6 x10^3/uL (4.0-11.0) Red Blood Count 3.87 x10^6/uL (3.50-5.40) Hemoglobin 11.5 g/dL (12.0-15.5) Hematocrit 35.4 % (36.0-47.0) Mean Corpuscular Volume 92 fL (79-100) Mean Corpuscular Hemoglobin 30 pg (25-35) Mean Corpuscular Hemoglobin Concent 33 g/dL (31-37) Red Cell Distribution Width 15.8 % (11.5-14.5) Platelet Count 200 x10^3/uL (140-400) Neutrophils (%) (Auto) 90 % (31-73) Lymphocytes (%) (Auto) 6 % (24-48) Monocytes (%) (Auto) 4 % (0-9) Eosinophils (%) (Auto) 0 % (0-3) Basophils (%) (Auto) 0 % (0-3) Neutrophils # (Auto) 17.7 x10^3uL (1.8-7.7) Lymphocytes # (Auto) 1.1 x10^3/uL (1.0-4.8) Monocytes # (Auto) 0.8 x10^3/uL (0.0-1.1) Eosinophils # (Auto) 0.0 x10^3/uL (0.0-0.7) Basophils # (Auto) 0.0 x10^3/uL (0.0-0.2) Segmented Neutrophils % 74 % (35-66) Band Neutrophils % 16 % (0-9) Lymphocytes % 8 % (24-48) Monocytes % 2 % (0-10) Dohle Bodies Present Platelet Estimate Adequate (ADEQUATE) D-Dimer (Sharda) 1.58 ug/mlFEU (0.00-0.50) Sodium Level 139 mmol/L (136-145) Potassium Level 4.2 mmol/L (3.5-5.1) Chloride Level 105 mmol/L (98-107) Carbon Dioxide Level 26 mmol/L (21-32) Anion Gap 8 (6-14) Blood Urea Nitrogen 23 mg/dL (7-20) Creatinine 1.1 mg/dL (0.6-1.0) Estimated GFR (Cockcroft-Gault) 58.0 Glucose Level 103 mg/dL (70-99) Calcium Level 9.1 mg/dL (8.5-10.1) Creatine Kinase 110 U/L (26-192) Creatine Kinase MB (Mass) 0.7 ng/mL (0.0-3.6) Creatine Kinase MB Relative Index 0.6 % (0-4) Troponin I Quantitative < 0.017 ng/mL (0.000-0.055) < 0.017 ng/mL (0.000-0.055) YF-Ezz-D-Type Natriuretic Peptide 407 pg/mL (0-449) Lipase 47 U/L (73-393) Thyroid Stimulating Hormone (TSH) 1.921 uIU/mL (0.358-3.74) Bedside Troponin I 0.00 ng/ml (<0.08) Lactic Acid Level 0.9 mmol/L (0.4-2.0) LIANG WILDER MD September 07, 2016 08:27
[2016-09-07] MEDS: FUROSEMIDE 40 MG TABLET. PO SCH (09:32)
[2016-09-07] MEDS: ALLOPURINOL 300 MG TABLET. PO SCH (09:32)
[2016-09-07] MEDS: HYDROcodone/APAP 5/325MG 1 TAB TABLET PO PRN ×2 (09:32→18:30)
[2016-09-07] MEDS: ASPIRIN ENTERIC COATED 81 MG TABLET.DR. PO SCH (09:33)
[2016-09-07] MEDS: METOPROLOL SUCC 24HR ER 25 MG TAB.ER.24H. PO SCH (09:37)
[2016-09-07] MEDS ORDERED: AZITHRMYCN 500MG IVPB FOR OMNI 250 ML IV SCH (10:00)
[2016-09-07 11:00] VITALS: BP 115/62
[2016-09-07 15:00] VITALS: BP 116/59
[2016-09-07] MEDS: AZITHROMYCIN 500 MG in IV NORMAL SALINE 250ML 250 ML IV SCH (18:29)
[2016-09-07 19:00] VITALS: BP 99/42
[2016-09-07] MEDS: LATANOPROST 0.005% OPHTH SOLUTION 2.5ML BOTTLE. OU SCH (21:02)
[2016-09-07 22:54] VITALS: BP 95/42
[2016-09-08 03:00] VITALS: BP 102/46
[2016-09-08 07:00] VITALS: BP 127/61
[2016-09-08] MEDS: IPRATRPIUM/ALBUTEROL 0.5/2.5MG 3 ML NEBU. NEB SCH ×4 (07:41→19:50)
[2016-09-08] MEDS: ALLOPURINOL 300 MG TABLET. PO SCH (08:34)
[2016-09-08] MEDS: METOPROLOL SUCC 24HR ER 25 MG TAB.ER.24H. PO SCH (08:34)
[2016-09-08] MEDS: FUROSEMIDE 40 MG TABLET. PO SCH (08:34)
[2016-09-08] MEDS: ASPIRIN ENTERIC COATED 81 MG TABLET.DR. PO SCH (08:34)
[2016-09-08 11:00] VITALS: BP 125/69
[2016-09-08] MEDS: AZITHROMYCIN 500 MG in IV NORMAL SALINE 250ML 250 ML IV SCH (12:06)
[2016-09-08 15:00] VITALS: BP 115/70
--- NOTE | 2016-09-08 16:47 | PDOC ---
GENERAL General: vss and afebrile. awake and alert and gradually less chest pain and gradually feeling little better. chest with decreased breath sounds and heart regular. O2 at 2L/NC. will continue current and recheck labs and cxr in am. Problems: VITAL SIGNS Vital Signs: Vital Signs Date Time Temp Pulse Resp B/P (MAP) Pulse Ox O2 Delivery O2 Flow Rate FiO2 09/08/16 15:10 Nasal Cannula 2.0 09/08/16 15:00 98.6 93 18 115/70 (85) 98.6 09/08/16 07:42 98 I & O I & O Intake and Output 09/08/16 07:00 Intake Total 240 ml Output Total 404 ml Balance -164 ml Intake Oral 240 ml Output Urine Total 404 ml # Voids 3 ALLERGIES Allergies: Allergies Coded Allergies Type Severity Reaction Last Updated Verified tomato Allergy Severe 09/08/16 Yes strawberry Allergy Intermediate 09/07/16 Yes MEDS Medications: Current Medications Medications (Trade) Dose Ordered Sig/Fortunato Start Time Stop Time Status Last Admin Dose Admin Acetaminophen (Tylenol) 650 mg PRN Q4HRS PRN 09/06/16 12:15 09/07/16 12:14 DC Acetaminophen/ Hydrocodone Bitart (Lortab 5/325) 1 tab PRN Q6HRS PRN 09/06/16 16:30 09/07/16 18:30 1 TAB Albuterol/ Ipratropium (Duoneb) 3 ml QID 09/06/16 17:00 09/08/16 15:09 3 ML Allopurinol (Zyloprim) 300 mg DAILY 09/07/16 09:00 09/08/16 08:34 300 MG Aspirin (Children'S Aspirin) 324 mg 1X ONCE 09/06/16 10:30 09/06/16 10:33 DC 09/06/16 11:10 324 MG Aspirin (Ecotrin) 81 mg DAILYWBKFT 09/07/16 08:00 09/08/16 08:34 81 MG Azithromycin 250 ml @ 250 mls/hr DAILY10 09/07/16 10:00 UNV Azithromycin 500 mg/Azithromycin 250 ml @ 250 mls/hr 1X ONCE 09/06/16 11:45 09/06/16 12:44 DC 09/06/16 12:27 250 MLS/HR Azithromycin 500 mg/Sodium Chloride 250 ml @ 250 mls/hr Q24H 09/07/16 12:00 09/08/16 12:06 250 MLS/HR Ceftriaxone Sodium 1 gm/ Sodium Chloride 50 ml @ 100 mls/hr Q24H 09/06/16 17:00 09/07/16 19:58 100 MLS/HR Ceftriaxone Sodium 50 ml @ 100 mls/hr 1X ONCE 09/06/16 11:45 09/06/16 12:14 DC Cyclobenzaprine HCl (Flexeril) 10 mg PRN TID PRN 09/06/16 16:30 Fentanyl Citrate (Fentanyl 2ml Vial) 50 mcg PRN Q2HR PRN 09/06/16 12:15 09/07/16 12:14 DC Furosemide (Lasix) 40 mg DAILY 09/07/16 09:00 09/08/16 08:34 40 MG Hydromorphone HCl (Dilaudid) 0.5 mg 1X ONCE 09/06/16 10:30 09/06/16 10:33 DC 09/06/16 11:10 0.5 MG Iohexol (Omnipaque 300 Mg/ml) 60 ml 1X ONCE 09/06/16 11:45 09/06/16 11:46 DC 09/06/16 12:42 60 ML Latanoprost (Xalatan) 1 drop QHS 09/06/16 21:00 09/07/16 21:02 1 DROP Lorazepam (Ativan) 1 mg 1X ONCE 09/06/16 10:30 09/06/16 10:33 DC 09/06/16 11:10 1 MG Metoprolol Succinate (Toprol Xl) 25 mg DAILY 09/06/16 17:00 09/08/16 08:34 25 MG Nitroglycerin (Nitrostat) 0.4 mg PRN Q5MIN PRN 09/06/16 16:30 Non-Formulary Medication 2 puff QID 09/06/16 17:00 UNV Ondansetron HCl (Zofran Odt) 4 mg PRN Q8HRS PRN 09/06/16 16:45 Ondansetron HCl (Zofran) 4 mg PRN Q8HRS PRN 09/06/16 12:15 09/07/16 12:14 DC Sodium Chloride (Normal Saline Flush) 10 ml QSHIFT PRN 09/06/16 10:30 LIANG WILDER MD September 08, 2016 16:47
[2016-09-08 19:00] VITALS: BP 117/55
[2016-09-08] MEDS: LATANOPROST 0.005% OPHTH SOLUTION 2.5ML BOTTLE. OU SCH (22:39)
[2016-09-08] MEDS: CYCLOBENZAPRINE 10 MG TABLET. PO PRN (22:47)
[2016-09-08 23:00] VITALS: BP 128/66
[2016-09-09 03:00] VITALS: BP 119/71
[2016-09-09 05:25] LABS: BASO % 0 % (0-3); EOS % 1 % (0-3); HEMATOCRIT 33.7 % (36.0-47.0); HEMOGLOBIN 10.7 g/dL (12.0-15.5); LYMPH # 1.4 x10^3/uL (1.0-4.8); LYMPH % 18 % (24-48); MEAN CORPUSCULAR HEMOGLOBIN 30 pg (25-35); MEAN CORPUSCULAR HGB CONC 32 g/dL (31-37); MEAN CORPUSCULAR VOLUME 95 fL (79-100); MONO % 8 % (0-9); NEUT % 74 % (31-73); PLATELET COUNT 197 x10^3/uL (140-400); RED BLOOD COUNT 3.57 x10^6/uL (3.50-5.40); RED CELL DISTRIBUTION WIDTH 15.7 % (11.5-14.5); WHITE BLOOD COUNT 7.9 x10^3/uL (4.0-11.0)
[2016-09-09 05:36] LABS: GFR 64.7; POTASSIUM 3.7 mmol/L (3.5-5.1)
[2016-09-09] MEDS: IPRATRPIUM/ALBUTEROL 0.5/2.5MG 3 ML NEBU. NEB SCH ×4 (07:15→19:35)
[2016-09-09 07:53] VITALS: BP 125/64
[2016-09-09] MEDS: ALLOPURINOL 300 MG TABLET. PO SCH (08:55)
[2016-09-09] MEDS: METOPROLOL SUCC 24HR ER 25 MG TAB.ER.24H. PO SCH (08:55)
[2016-09-09] MEDS: FUROSEMIDE 40 MG TABLET. PO SCH (08:56)
[2016-09-09] MEDS: ASPIRIN ENTERIC COATED 81 MG TABLET.DR. PO SCH (08:56)
--- NOTE | 2016-09-09 09:41 | PDOC ---
GENERAL General: vss and afebrile. awake and alert and not much appetite. overall slow improvement with decreasing pleuritic pain and sob. coughing large amount brownish phlegm. wbc has returned to normal at 7.9K with resolution of left shift. BUN and creatinine have returned to normal. am cxr is pending. continue present care and await improvement. Problems: VITAL SIGNS Vital Signs: Vital Signs Date Time Temp Pulse Resp B/P (MAP) Pulse Ox O2 Delivery O2 Flow Rate FiO2 09/09/16 08:55 92 125/64 09/09/16 07:53 98.1 18 95 Nasal Cannula 2.0 98.1 I & O I & O Intake and Output 09/09/16 07:00 Intake Total 760 ml Balance 760 ml Intake Oral 460 ml IV Total 300 ml # Voids 11 ALLERGIES Allergies: Allergies Coded Allergies Type Severity Reaction Last Updated Verified tomato Allergy Severe 09/08/16 Yes strawberry Allergy Intermediate 09/07/16 Yes MEDS Medications: Current Medications Medications (Trade) Dose Ordered Sig/Fortunato Start Time Stop Time Status Last Admin Dose Admin Acetaminophen (Tylenol) 650 mg PRN Q4HRS PRN 09/06/16 12:15 09/07/16 12:14 DC Acetaminophen/ Hydrocodone Bitart (Lortab 5/325) 1 tab PRN Q6HRS PRN 09/06/16 16:30 09/07/16 18:30 1 TAB Albuterol/ Ipratropium (Duoneb) 3 ml QID 09/06/16 17:00 09/09/16 07:15 3 ML Allopurinol (Zyloprim) 300 mg DAILY 09/07/16 09:00 09/09/16 08:55 300 MG Aspirin (Children'S Aspirin) 324 mg 1X ONCE 09/06/16 10:30 09/06/16 10:33 DC 09/06/16 11:10 324 MG Aspirin (Ecotrin) 81 mg DAILYWBKFT 09/07/16 08:00 09/09/16 08:56 81 MG Azithromycin 250 ml @ 250 mls/hr DAILY10 09/07/16 10:00 UNV Azithromycin 500 mg/Azithromycin 250 ml @ 250 mls/hr 1X ONCE 09/06/16 11:45 09/06/16 12:44 DC 09/06/16 12:27 250 MLS/HR Azithromycin 500 mg/Sodium Chloride 250 ml @ 250 mls/hr Q24H 09/07/16 12:00 09/08/16 12:06 250 MLS/HR Ceftriaxone Sodium 1 gm/ Sodium Chloride 50 ml @ 100 mls/hr Q24H 09/06/16 17:00 09/08/16 16:38 100 MLS/HR Ceftriaxone Sodium 50 ml @ 100 mls/hr 1X ONCE 09/06/16 11:45 09/06/16 12:14 DC Cyclobenzaprine HCl (Flexeril) 10 mg PRN TID PRN 09/06/16 16:30 09/08/16 22:47 10 MG Fentanyl Citrate (Fentanyl 2ml Vial) 50 mcg PRN Q2HR PRN 09/06/16 12:15 09/07/16 12:14 DC Furosemide (Lasix) 40 mg DAILY 09/07/16 09:00 09/09/16 08:56 40 MG Hydromorphone HCl (Dilaudid) 0.5 mg 1X ONCE 09/06/16 10:30 09/06/16 10:33 DC 09/06/16 11:10 0.5 MG Iohexol (Omnipaque 300 Mg/ml) 60 ml 1X ONCE 09/06/16 11:45 09/06/16 11:46 DC 09/06/16 12:42 60 ML Latanoprost (Xalatan) 1 drop QHS 09/06/16 21:00 09/08/16 22:39 1 DROP Lorazepam (Ativan) 1 mg 1X ONCE 09/06/16 10:30 09/06/16 10:33 DC 09/06/16 11:10 1 MG Metoprolol Succinate (Toprol Xl) 25 mg DAILY 09/06/16 17:00 09/09/16 08:55 25 MG Nitroglycerin (Nitrostat) 0.4 mg PRN Q5MIN PRN 09/06/16 16:30 Non-Formulary Medication 2 puff QID 09/06/16 17:00 UNV Ondansetron HCl (Zofran Odt) 4 mg PRN Q8HRS PRN 09/06/16 16:45 Ondansetron HCl (Zofran) 4 mg PRN Q8HRS PRN 09/06/16 12:15 09/07/16 12:14 DC Sodium Chloride (Normal Saline Flush) 10 ml QSHIFT PRN 09/06/16 10:30 LAB Lab: Laboratory Tests Test 09/09/16 04:50 White Blood Count 7.9 x10^3/uL (4.0-11.0) Red Blood Count 3.57 x10^6/uL (3.50-5.40) Hemoglobin 10.7 g/dL (12.0-15.5) Hematocrit 33.7 % (36.0-47.0) Mean Corpuscular Volume 95 fL (79-100) Mean Corpuscular Hemoglobin 30 pg (25-35) Mean Corpuscular Hemoglobin Concent 32 g/dL (31-37) Red Cell Distribution Width 15.7 % (11.5-14.5) Platelet Count 197 x10^3/uL (140-400) Neutrophils (%) (Auto) 74 % (31-73) Lymphocytes (%) (Auto) 18 % (24-48) Monocytes (%) (Auto) 8 % (0-9) Eosinophils (%) (Auto) 1 % (0-3) Basophils (%) (Auto) 0 % (0-3) Neutrophils # (Auto) 5.8 x10^3uL (1.8-7.7) Lymphocytes # (Auto) 1.4 x10^3/uL (1.0-4.8) Monocytes # (Auto) 0.6 x10^3/uL (0.0-1.1) Eosinophils # (Auto) 0.1 x10^3/uL (0.0-0.7) Basophils # (Auto) 0.0 x10^3/uL (0.0-0.2) Sodium Level 141 mmol/L (136-145) Potassium Level 3.7 mmol/L (3.5-5.1) Chloride Level 103 mmol/L (98-107) Carbon Dioxide Level 30 mmol/L (21-32) Anion Gap 8 (6-14) Blood Urea Nitrogen 16 mg/dL (7-20) Creatinine 1.0 mg/dL (0.6-1.0) Estimated GFR (Cockcroft-Gault) 64.7 Glucose Level 84 mg/dL (70-99) Calcium Level 9.0 mg/dL (8.5-10.1) LIANG WILDER MD September 09, 2016 09:41
[2016-09-09 10:17] VITALS: BP 125/67
--- NOTE | 2016-09-09 10:25 | RAD ---
Examination: Two-view of the chest History: History of pneumonia Comparison: 09/06/2016 Findings: The cardiomediastinal silhouette grossly appears unremarkable. Left lung base airspace opacity likely pneumonia or atelectasis grossly similar to prior exam. Impression: Unchanged left lung base airspace opacity likely pneumonia or atelectasis.
[2016-09-09] MEDS: AZITHROMYCIN 500 MG in IV NORMAL SALINE 250ML 250 ML IV SCH (11:47)
[2016-09-09 14:35] VITALS: BP 106/62
[2016-09-09 19:00] VITALS: BP 109/58
[2016-09-09] MEDS: LATANOPROST 0.005% OPHTH SOLUTION 2.5ML BOTTLE. OU SCH (22:23)
[2016-09-09 23:00] VITALS: BP 105/61
[2016-09-10 03:00] VITALS: BP 109/55
[2016-09-10 07:28] VITALS: BP 95/50
[2016-09-10] MEDS: IPRATRPIUM/ALBUTEROL 0.5/2.5MG 3 ML NEBU. NEB SCH ×4 (08:32→21:08)
[2016-09-10] MEDS: ALLOPURINOL 300 MG TABLET. PO SCH (08:59)
[2016-09-10] MEDS: FUROSEMIDE 40 MG TABLET. PO SCH ×2 (08:59→09:00)
[2016-09-10] MEDS: ASPIRIN ENTERIC COATED 81 MG TABLET.DR. PO SCH (09:00)
[2016-09-10] MEDS: METOPROLOL SUCC 24HR ER 25 MG TAB.ER.24H. PO SCH (09:00)
[2016-09-10 10:37] VITALS: BP 105/50
--- NOTE | 2016-09-10 11:46 | PDOC ---
GENERAL General: vss and afebrile. awake and alert. feeling better daily. cxr without improvement. still pain with breath or cough but lessening. will ask therapy to evaluate as expect dc early week. Problems: VITAL SIGNS Vital Signs: Vital Signs Date Time Temp Pulse Resp B/P (MAP) Pulse Ox O2 Delivery O2 Flow Rate FiO2 09/10/16 10:37 97.9 77 20 105/50 (68) 98 Nasal Cannula 2.0 97.9 I & O I & O Intake and Output 09/10/16 07:00 Intake Total 1880 ml Output Total 1900 ml Balance -20 ml Intake Oral 1880 ml Output Urine Total 1900 ml # Voids 3 # Bowel Movements 4 ALLERGIES Allergies: Allergies Coded Allergies Type Severity Reaction Last Updated Verified tomato Allergy Severe 09/08/16 Yes strawberry Allergy Intermediate 09/07/16 Yes MEDS Medications: Current Medications Medications (Trade) Dose Ordered Sig/Fortunato Start Time Stop Time Status Last Admin Dose Admin Acetaminophen (Tylenol) 650 mg PRN Q4HRS PRN 09/06/16 12:15 09/07/16 12:14 DC Acetaminophen/ Hydrocodone Bitart (Lortab 5/325) 1 tab PRN Q6HRS PRN 09/06/16 16:30 09/07/16 18:30 1 TAB Albuterol/ Ipratropium (Duoneb) 3 ml QID 09/06/16 17:00 09/10/16 08:32 3 ML Allopurinol (Zyloprim) 300 mg DAILY 09/07/16 09:00 09/10/16 08:59 300 MG Aspirin (Children'S Aspirin) 324 mg 1X ONCE 09/06/16 10:30 09/06/16 10:33 DC 09/06/16 11:10 324 MG Aspirin (Ecotrin) 81 mg DAILYWBKFT 09/07/16 08:00 09/10/16 09:00 81 MG Azithromycin 250 ml @ 250 mls/hr DAILY10 09/07/16 10:00 UNV Azithromycin 500 mg/Azithromycin 250 ml @ 250 mls/hr 1X ONCE 09/06/16 11:45 09/06/16 12:44 DC 09/06/16 12:27 250 MLS/HR Azithromycin 500 mg/Sodium Chloride 250 ml @ 250 mls/hr Q24H 09/07/16 12:00 09/09/16 11:47 250 MLS/HR Ceftriaxone Sodium 1 gm/ Sodium Chloride 50 ml @ 100 mls/hr Q24H 09/06/16 17:00 09/09/16 17:21 100 MLS/HR Ceftriaxone Sodium 50 ml @ 100 mls/hr 1X ONCE 09/06/16 11:45 09/06/16 12:14 DC Cyclobenzaprine HCl (Flexeril) 10 mg PRN TID PRN 09/06/16 16:30 09/08/16 22:47 10 MG Fentanyl Citrate (Fentanyl 2ml Vial) 50 mcg PRN Q2HR PRN 09/06/16 12:15 09/07/16 12:14 DC Furosemide (Lasix) 40 mg DAILY 09/07/16 09:00 09/09/16 08:56 40 MG Hydromorphone HCl (Dilaudid) 0.5 mg 1X ONCE 09/06/16 10:30 09/06/16 10:33 DC 09/06/16 11:10 0.5 MG Iohexol (Omnipaque 300 Mg/ml) 60 ml 1X ONCE 09/06/16 11:45 09/06/16 11:46 DC 09/06/16 12:42 60 ML Latanoprost (Xalatan) 1 drop QHS 09/06/16 21:00 09/09/16 22:23 1 DROP Lorazepam (Ativan) 1 mg 1X ONCE 09/06/16 10:30 09/06/16 10:33 DC 09/06/16 11:10 1 MG Metoprolol Succinate (Toprol Xl) 25 mg DAILY 09/06/16 17:00 09/09/16 08:55 25 MG Nitroglycerin (Nitrostat) 0.4 mg PRN Q5MIN PRN 09/06/16 16:30 Non-Formulary Medication 2 puff QID 09/06/16 17:00 UNV Ondansetron HCl (Zofran Odt) 4 mg PRN Q8HRS PRN 09/06/16 16:45 Ondansetron HCl (Zofran) 4 mg PRN Q8HRS PRN 09/06/16 12:15 09/07/16 12:14 DC Sodium Chloride (Normal Saline Flush) 10 ml QSHIFT PRN 5/10/17 10:30 LIANG WILDER MD September 10, 2016 11:46
[2016-09-10] MEDS: AZITHROMYCIN 500 MG in IV NORMAL SALINE 250ML 250 ML IV SCH (12:20)
[2016-09-10 14:30] VITALS: BP 130/61
[2016-09-10 19:00] VITALS: BP 104/54
[2016-09-10] MEDS: CYCLOBENZAPRINE 10 MG TABLET. PO PRN (20:31)
[2016-09-10] MEDS: LATANOPROST 0.005% OPHTH SOLUTION 2.5ML BOTTLE. OU SCH (20:31)
[2016-09-10 23:00] VITALS: BP 114/47
[2016-09-11 03:00] VITALS: BP 142/64
[2016-09-11 07:00] VITALS: BP 128/72
[2016-09-11] MEDS: IPRATRPIUM/ALBUTEROL 0.5/2.5MG 3 ML NEBU. NEB SCH ×4 (07:55→19:28)
[2016-09-11] MEDS: FUROSEMIDE 40 MG TABLET. PO SCH (08:52)
[2016-09-11] MEDS: ALLOPURINOL 300 MG TABLET. PO SCH (08:53)
[2016-09-11] MEDS: METOPROLOL SUCC 24HR ER 25 MG TAB.ER.24H. PO SCH (08:53)
[2016-09-11] MEDS: ASPIRIN ENTERIC COATED 81 MG TABLET.DR. PO SCH (08:53)
[2016-09-11 11:00] VITALS: BP 120/65
[2016-09-11] MEDS: AZITHROMYCIN 500 MG in IV NORMAL SALINE 250ML 250 ML IV SCH (11:29)
--- NOTE | 2016-09-11 12:53 | PDOC ---
GENERAL General: vss and afebrile. doing much better daily with breathing and pain. chest with decreased breath sounds which is her baseline. will change to po meds with eye toward dc in am. Problems: VITAL SIGNS Vital Signs: Vital Signs Date Time Temp Pulse Resp B/P (MAP) Pulse Ox O2 Delivery O2 Flow Rate FiO2 09/11/16 11:41 97 Nasal Cannula 2.0 09/11/16 08:53 84 128/72 09/11/16 03:00 97.7 20 97.7 I & O I & O Intake and Output 09/11/16 07:00 Intake Total 1570 ml Output Total 251 ml Balance 1319 ml Intake Oral 1020 ml IV Total 550 ml Output Urine Total 251 ml # Voids 3 # Bowel Movements 1 ALLERGIES Allergies: Allergies Coded Allergies Type Severity Reaction Last Updated Verified tomato Allergy Severe 09/08/16 Yes strawberry Allergy Intermediate 09/07/16 Yes MEDS Medications: Current Medications Medications (Trade) Dose Ordered Sig/Fortunato Start Time Stop Time Status Last Admin Dose Admin Acetaminophen (Tylenol) 650 mg PRN Q4HRS PRN 09/06/16 12:15 09/07/16 12:14 DC Acetaminophen/ Hydrocodone Bitart (Lortab 5/325) 1 tab PRN Q6HRS PRN 09/06/16 16:30 09/07/16 18:30 1 TAB Albuterol/ Ipratropium (Duoneb) 3 ml QID 09/06/16 17:00 09/11/16 11:40 3 ML Allopurinol (Zyloprim) 300 mg DAILY 09/07/16 09:00 09/11/16 08:53 300 MG Aspirin (Children'S Aspirin) 324 mg 1X ONCE 09/06/16 10:30 09/06/16 10:33 DC 09/06/16 11:10 324 MG Aspirin (Ecotrin) 81 mg DAILYWBKFT 09/07/16 08:00 09/11/16 08:53 81 MG Azithromycin 250 ml @ 250 mls/hr DAILY10 09/07/16 10:00 UNV Azithromycin 500 mg/Azithromycin 250 ml @ 250 mls/hr 1X ONCE 09/06/16 11:45 09/06/16 12:44 DC 09/06/16 12:27 250 MLS/HR Azithromycin 500 mg/Sodium Chloride 250 ml @ 250 mls/hr Q24H 5/11/17 12:00 09/11/16 11:29 250 MLS/HR Ceftriaxone Sodium 1 gm/ Sodium Chloride 50 ml @ 100 mls/hr Q24H 09/06/16 17:00 09/10/16 16:33 100 MLS/HR Ceftriaxone Sodium 50 ml @ 100 mls/hr 1X ONCE 09/06/16 11:45 09/06/16 12:14 DC Cyclobenzaprine HCl (Flexeril) 10 mg PRN TID PRN 09/06/16 16:30 09/10/16 20:31 10 MG Fentanyl Citrate (Fentanyl 2ml Vial) 50 mcg PRN Q2HR PRN 09/06/16 12:15 09/07/16 12:14 DC Furosemide (Lasix) 40 mg DAILY 09/07/16 09:00 09/11/16 08:52 40 MG Hydromorphone HCl (Dilaudid) 0.5 mg 1X ONCE 09/06/16 10:30 09/06/16 10:33 DC 09/06/16 11:10 0.5 MG Iohexol (Omnipaque 300 Mg/ml) 60 ml 1X ONCE 09/06/16 11:45 09/06/16 11:46 DC 09/06/16 12:42 60 ML Latanoprost (Xalatan) 1 drop QHS 09/06/16 21:00 09/10/16 20:31 1 DROP Lorazepam (Ativan) 1 mg 1X ONCE 09/06/16 10:30 09/06/16 10:33 DC 09/06/16 11:10 1 MG Metoprolol Succinate (Toprol Xl) 25 mg DAILY 09/06/16 17:00 09/11/16 08:53 25 MG Nitroglycerin (Nitrostat) 0.4 mg PRN Q5MIN PRN 09/06/16 16:30 Non-Formulary Medication 2 puff QID 09/06/16 17:00 UNV Ondansetron HCl (Zofran Odt) 4 mg PRN Q8HRS PRN 09/06/16 16:45 Ondansetron HCl (Zofran) 4 mg PRN Q8HRS PRN 09/06/16 12:15 09/07/16 12:14 DC Sodium Chloride (Normal Saline Flush) 10 ml QSHIFT PRN 09/06/16 10:30 LIANG WILDER MD September 11, 2016 12:53
[2016-09-11 15:00] VITALS: BP 122/70
[2016-09-11 19:48] VITALS: BP 97/54
[2016-09-11] MEDS: CEFPODOXIME PROXETIL 100 MG TABLET. PO SCH (20:34)
[2016-09-11] MEDS: LATANOPROST 0.005% OPHTH SOLUTION 2.5ML BOTTLE. OU SCH (20:35)
[2016-09-11 23:15] VITALS: BP 114/58
[2016-09-12 03:57] VITALS: BP 110/62
[2016-09-12 07:00] VITALS: BP 110/60
[2016-09-12] MEDS: IPRATRPIUM/ALBUTEROL 0.5/2.5MG 3 ML NEBU. NEB SCH ×3 (07:06→15:26)
--- NOTE | 2016-09-12 08:09 | PDOC ---
GENERAL General: see discharge summary. Problems: VITAL SIGNS Vital Signs: Vital Signs Date Time Temp Pulse Resp B/P (MAP) Pulse Ox O2 Delivery O2 Flow Rate FiO2 09/12/16 07:09 96 Room Air 09/12/16 03:57 98.2 83 20 110/62 (78) 2.0 98.2 I & O I & O Intake and Output 09/12/16 07:00 Intake Total 730 ml Output Total 301 ml Balance 429 ml Intake Oral 480 ml IV Total 250 ml Output Urine Total 300 ml Stool Total 1 ml # Voids 6 # Bowel Movements 1 ALLERGIES Allergies: Allergies Coded Allergies Type Severity Reaction Last Updated Verified tomato Allergy Severe 09/08/16 Yes strawberry Allergy Intermediate 09/07/16 Yes MEDS Medications: Current Medications Medications (Trade) Dose Ordered Sig/Fortunato Start Time Stop Time Status Last Admin Dose Admin Acetaminophen (Tylenol) 650 mg PRN Q4HRS PRN 09/06/16 12:15 09/07/16 12:14 DC Acetaminophen/ Hydrocodone Bitart (Lortab 5/325) 1 tab PRN Q6HRS PRN 09/06/16 16:30 09/07/16 18:30 1 TAB Albuterol/ Ipratropium (Duoneb) 3 ml QID 09/06/16 17:00 09/12/16 07:06 3 ML Allopurinol (Zyloprim) 300 mg DAILY 09/07/16 09:00 09/11/16 08:53 300 MG Aspirin (Children'S Aspirin) 324 mg 1X ONCE 09/06/16 10:30 09/06/16 10:33 DC 09/06/16 11:10 324 MG Aspirin (Ecotrin) 81 mg [id number] 09/07/16 08:00 09/11/16 08:53 81 MG Azithromycin 250 ml @ 250 mls/hr DAILY10 09/07/16 10:00 UNV Azithromycin 500 mg/Azithromycin 250 ml @ 250 mls/hr 1X ONCE 09/06/16 11:45 09/06/16 12:44 DC 09/06/16 12:27 250 MLS/HR Azithromycin 500 mg/Sodium Chloride 250 ml @ 250 mls/hr Q24H 09/07/16 12:00 09/11/16 12:57 DC 09/11/16 11:29 250 MLS/HR Cefpodoxime Proxetil (Vantin) 200 mg BID 09/11/16 21:00 09/11/16 20:34 200 MG Ceftriaxone Sodium 1 gm/ Sodium Chloride 50 ml @ 100 mls/hr Q24H 09/06/16 17:00 09/11/16 12:57 DC 09/10/16 16:33 100 MLS/HR Ceftriaxone Sodium 50 ml @ 100 mls/hr 1X ONCE 09/06/16 11:45 09/06/16 12:14 DC Cyclobenzaprine HCl (Flexeril) 10 mg PRN TID PRN 09/06/16 16:30 09/10/16 20:31 10 MG Fentanyl Citrate (Fentanyl 2ml Vial) 50 mcg PRN Q2HR PRN 09/06/16 12:15 09/07/16 12:14 DC Furosemide (Lasix) 40 mg DAILY 09/07/16 09:00 09/11/16 08:52 40 MG Hydromorphone HCl (Dilaudid) 0.5 mg 1X ONCE 09/06/16 10:30 09/06/16 10:33 DC 09/06/16 11:10 0.5 MG Iohexol (Omnipaque 300 Mg/ml) 60 ml 1X ONCE 09/06/16 11:45 09/06/16 11:46 DC 09/06/16 12:42 60 ML Latanoprost (Xalatan) 1 drop QHS 09/06/16 21:00 09/11/16 20:35 1 DROP Lorazepam (Ativan) 1 mg 1X ONCE 09/06/16 10:30 09/06/16 10:33 DC 09/06/16 11:10 1 MG Metoprolol Succinate (Toprol Xl) 25 mg DAILY 09/06/16 17:00 09/11/16 08:53 25 MG Nitroglycerin (Nitrostat) 0.4 mg PRN Q5MIN PRN 09/06/16 16:30 Non-Formulary Medication 2 puff QID 09/06/16 17:00 UNV Ondansetron HCl (Zofran Odt) 4 mg PRN Q8HRS PRN 09/06/16 16:45 Ondansetron HCl (Zofran) 4 mg PRN Q8HRS PRN 09/06/16 12:15 5/11/17 12:14 DC Sodium Chloride (Normal Saline Flush) 10 ml QSHIFT PRN 09/06/16 10:30 LAB Lab: Laboratory Tests Test 09/11/16 11:38 Clostridium difficile Toxin (PCR) Negative (Negative) LIANG WIDLER MD September 12, 2016 08:09
[2016-09-12] MEDS: FUROSEMIDE 40 MG TABLET. PO SCH ×2 (09:00→09:07)
[2016-09-12] MEDS: ASPIRIN ENTERIC COATED 81 MG TABLET.DR. PO SCH (09:07)
[2016-09-12] MEDS: ALLOPURINOL 300 MG TABLET. PO SCH (09:07)
[2016-09-12] MEDS: CEFPODOXIME PROXETIL 100 MG TABLET. PO SCH (09:08)
[2016-09-12] MEDS: METOPROLOL SUCC 24HR ER 25 MG TAB.ER.24H. PO SCH (09:08)
[2016-09-12 11:00] VITALS: BP 120/66
[2016-09-12 15:00] VITALS: BP 99/59
== END 2016-09-12 18:34 | disposition home or self-care (01) | DRG 190 ==
LOC: ER 09:55 → 5 NORTH 11:59
PROVIDERS: ADMIT Family Medicine; ATTEND Family Medicine
DX: J44.0 Chronic obstructive pulmonary disease with (acute) lower respiratory infection (principal); J15.6 Pneumonia due to other Gram-negative bacteria; F41.9 Anxiety disorder, unspecified; J44.1 Chronic obstructive pulmonary disease with (acute) exacerbation; Z85.118 Personal history of other malignant neoplasm of bronchus and lung; Z87.891 Personal history of nicotine dependence; Z91.018 Allergy to other foods; Z90.49 Acquired absence of other specified parts of digestive tract; Z90.710 Acquired absence of both cervix and uterus
CPT/HCPCS: 36415; 70450; 71010; 71020; 71275; 80048; 81001; 82553; 83605; 83690; 83880; 84443; 84484; 85007; 85027; 85379; 87040; 87070; 87205; 87324; 93005; 93971; 94250; 94640; 94660; 94760; 96361; 96365; 96375; J0456; J0696; J1170; J2060; J7030; J7050; J7620; Q9967; 97110; 97530; 97535; 99285-25

== ENCOUNTER 2017-06-16 14:30 | Inpatient (IN) | payer MEDICARE, MEDICAID ==
[2017-06-16 15:11] LABS: ADD MAN DIFF? NO
[2017-06-16 15:16] LABS: BASO % 1 % (0-3); EOS # 0.1 x10^3/uL (0.0-0.7); EOS % 1 % (0-3); HEMATOCRIT 33.7 % (36.0-47.0); HEMOGLOBIN 10.9 g/dL (12.0-15.5); LYMPH # 1.7 x10^3/uL (1.0-4.8); LYMPH % 22 % (24-48); MEAN CORPUSCULAR HEMOGLOBIN 29 pg (25-35); MEAN CORPUSCULAR HGB CONC 32 g/dL (31-37); MEAN CORPUSCULAR VOLUME 90 fL (79-100); MONO # 0.5 x10^3/uL (0.0-1.1); MONO % 6 % (0-9); NEUT # 5.4 x10^3uL (1.8-7.7); NEUT % 70 % (31-73); PLATELET COUNT 233 x10^3/uL (140-400); RED BLOOD COUNT 3.73 x10^6/uL (3.50-5.40); WHITE BLOOD COUNT 7.7 x10^3/uL (4.0-11.0)
[2017-06-16] MEDS: ASPIRIN CHEWABLE 81 MG TABLET. PO (15:16)
[2017-06-16] MEDS: IV NORMAL SALINE 1000ML BAG 1,000 ML IV (15:23)
[2017-06-16 15:25] LABS: ANION GAP 11 (6-14); BLOOD UREA NITROGEN 29 mg/dL (7-20); BUN/CREATININE RATIO 21 (6-20); CARBON DIOXIDE 27 mmol/L (21-32); CHLORIDE 102 mmol/L (98-107); CREATININE 1.4 mg/dL (0.6-1.0); GFR 43.8; GLUCOSE 93 mg/dL (70-99); POTASSIUM 3.4 mmol/L (3.5-5.1); SODIUM 140 mmol/L (136-145)
[2017-06-16 15:31] LABS: ALBUMIN 3.4 g/dL (3.4-5.0); ALBUMIN/GLOBULIN RATIO 0.8 (1.0-1.7); ALK PHOS 129 U/L (46-116); ALT (SGPT) 15 U/L (14-59); AST (SGOT) 23 U/L (15-37); TOTAL BILIRUBIN 0.2 mg/dL (0.2-1.0); TOTAL PROTEIN 7.9 g/dL (6.4-8.2)
[2017-06-16 15:31] LABS: TROPONINI < 0.017 ng/mL (0.000-0.055)
[2017-06-16 20:07] LABS: TROPONINI < 0.017 ng/mL (0.000-0.055)
[2017-06-16] MEDS: MORPHINE SULFATE 2 MG/ML DISP.SYRIN. IV (20:39)
[2017-06-16] MEDS: ONDANSETRON PF 4 MG/2 ML VIAL. IV (20:39)
[2017-06-16] MEDS: IPRATRPIUM/ALBUTEROL 0.5/2.5MG 3 ML NEBU. NEB (21:00)
[2017-06-16] MEDS ORDERED: HYDROcodone/APAP 7.5/325MG 1 TAB TABLET PO (21:00)
[2017-06-16] MEDS ORDERED: NITROGLYCERIN SUBLINGUAL 0.4 MG BOTTLE OF 25. SL (21:00)
[2017-06-16] MEDS ORDERED: ONDANSETRON ODT 4 MG TAB.RAPDIS. PO (21:15)
[2017-06-16] MEDS ORDERED: ALBUTEROL SULFATE 2.5 MG/3 ML NEBU. NEB (21:15)
[2017-06-16] MEDS: LATANOPROST 0.005% OPHTH SOLUTION 2.5ML BOTTLE. OU (21:36)
[2017-06-17] MEDS: MORPHINE SULFATE 2 MG/ML DISP.SYRIN. IV (01:37)
[2017-06-17 06:28] LABS: TROPONINI < 0.017 ng/mL (0.000-0.055)
[2017-06-17] MEDS: IPRATRPIUM/ALBUTEROL 0.5/2.5MG 3 ML NEBU. NEB ×4 (07:55→19:15)
[2017-06-17] MEDS: METOPROLOL SUCC 24HR ER 25 MG TAB.ER.24H. PO (09:00)
[2017-06-17] MEDS: ROFLUMILAST 500 MCG TABLET. PO (09:00)
[2017-06-17] MEDS: ASPIRIN ENTERIC COATED 81 MG TABLET.DR. PO (09:00)
[2017-06-17] MEDS: FUROSEMIDE 40 MG TABLET. PO (09:00)
[2017-06-17] MEDS: ALLOPURINOL 300 MG TABLET. PO (09:00)
[2017-06-17] MEDS ORDERED: CONTRAST GIVEN MC (10:45)
[2017-06-17] MEDS: IOHEXOL 240 MG/ML 50ML VIAL. PO (12:41)
[2017-06-17] MEDS: CYCLOBENZAPRINE 10 MG TABLET. PO ×2 (12:58→20:35)
[2017-06-17] MEDS: CELECOXIB 200 MG CAPSULE. PO ×2 (12:58→20:34)
[2017-06-17] MEDS: LATANOPROST 0.005% OPHTH SOLUTION 2.5ML BOTTLE. OU (20:34)
[2017-06-17] MEDS: HYDROcodone/APAP 7.5/325MG 1 TAB TABLET PO (20:35)
[2017-06-18] MEDS: IPRATRPIUM/ALBUTEROL 0.5/2.5MG 3 ML NEBU. NEB ×3 (07:57→19:36)
[2017-06-18] MEDS: ALLOPURINOL 300 MG TABLET. PO (08:37)
[2017-06-18] MEDS: ROFLUMILAST 500 MCG TABLET. PO (08:38)
[2017-06-18] MEDS: CELECOXIB 200 MG CAPSULE. PO ×2 (08:38→20:32)
[2017-06-18] MEDS: ASPIRIN ENTERIC COATED 81 MG TABLET.DR. PO (08:38)
[2017-06-18] MEDS: HYDROcodone/APAP 7.5/325MG 1 TAB TABLET PO (08:39)
[2017-06-18] MEDS: METOPROLOL SUCC 24HR ER 25 MG TAB.ER.24H. PO (09:00)
[2017-06-18] MEDS: FUROSEMIDE 40 MG TABLET. PO (09:00)
[2017-06-18] MEDS: REGADENOSON 0.4 MG/5 ML DISP.SYRIN. IV ×2 (11:48→12:06)
[2017-06-18 14:25] LABS: ANION GAP 7 (6-14); BLOOD UREA NITROGEN 27 mg/dL (7-20); CALCIUM 9.2 mg/dL (8.5-10.1); CARBON DIOXIDE 30 mmol/L (21-32); CHLORIDE 102 mmol/L (98-107); CREATININE 1.6 mg/dL (0.6-1.0); GFR 37.5; GLUCOSE 128 mg/dL (70-99); MAGNESIUM 1.9 mg/dL (1.8-2.4); POTASSIUM 3.6 mmol/L (3.5-5.1); SODIUM 139 mmol/L (136-145)
[2017-06-18] MEDS: LATANOPROST 0.005% OPHTH SOLUTION 2.5ML BOTTLE. OU (20:33)
[2017-06-19] MEDS: IPRATRPIUM/ALBUTEROL 0.5/2.5MG 3 ML NEBU. NEB (08:32)
[2017-06-19] MEDS: FUROSEMIDE 40 MG TABLET. PO (09:00)
[2017-06-19] MEDS: HYDROcodone/APAP 7.5/325MG 1 TAB TABLET PO (09:21)
[2017-06-19] MEDS: CELECOXIB 200 MG CAPSULE. PO (09:21)
[2017-06-19] MEDS: ASPIRIN ENTERIC COATED 81 MG TABLET.DR. PO (09:22)
[2017-06-19] MEDS: ROFLUMILAST 500 MCG TABLET. PO (09:22)
[2017-06-19] MEDS: METOPROLOL SUCC 24HR ER 25 MG TAB.ER.24H. PO (09:22)
[2017-06-19] MEDS: ALLOPURINOL 300 MG TABLET. PO (09:22)
== END 2017-06-19 12:30 | disposition home or self-care (01) | DRG 194 ==
LOC: ER 14:30 → 2 SOUTH 16:22
DX: R09.1 Pleurisy (principal); N17.9 Acute kidney failure, unspecified; R07.89 Other chest pain; J44.9 Chronic obstructive pulmonary disease, unspecified; I10 Essential (primary) hypertension; R10.9 Unspecified abdominal pain; Z96.649 Presence of unspecified artificial hip joint; F41.9 Anxiety disorder, unspecified; K57.90 Diverticulosis of intestine, part unspecified, without perforation or abscess without bleeding; Z82.49 Family history of ischemic heart disease and other diseases of the circulatory system; Z83.3 Family history of diabetes mellitus; Z85.118 Personal history of other malignant neoplasm of bronchus and lung; Z87.891 Personal history of nicotine dependence; Z90.2 Acquired absence of lung [part of]; Z90.49 Acquired absence of other specified parts of digestive tract; Z90.710 Acquired absence of both cervix and uterus; Z98.42 Cataract extraction status, left eye; Z98.41 Cataract extraction status, right eye; Z91.018 Allergy to other foods
CPT/HCPCS: 36415; 71045; 74176; 78452; 80048; 80053; 83735; 84484; 85025; 93005; 93017; 93306; 94640; 94760; 96360; 96361; 96374; 96375; 96376; 99285; 99285-25; A9500; J2270; J2405; J2785; J7030; J7620; Q9966

== ENCOUNTER 2018-07-12 17:09 | Inpatient (IN) | payer MEDICAID, MEDICARE ==
[~2018-07-12] VITALS: Ht 157.5 cm; Wt 64.1 kg
[~2018-07-12 17:09] MED LIST changes: +ASPI-612 PO; -ASPI81TA9 PO; +BREO; +CELE200C PO; +HYDR-2765 PO; +HYDR-3164 PO; -HYDR-971 PO; -IPRA3AMP NEB; +IPRA3AMP29 NEB; -LEVO500T38 PO; +LEVO500T59 PO; +METO-239 PO; -METO25TA9 PO; +ROFL500T7 PO; +VENTOLIN
[2018-07-12] MEDS ORDERED: DEXAMETHASONE SOD PHOS 20 MG/5 ML VIAL. IV ONE (18:30)
[2018-07-12] MEDS ORDERED: IPRATRPIUM/ALBUTEROL 0.5/2.5MG 3 ML NEBU. NEB ONE (18:45)
[2018-07-12 19:54] LABS: BASO % 0 % (0-3); EOS % 1 % (0-3); HEMATOCRIT 31.6 % (36.0-47.0); HEMOGLOBIN 10.1 g/dL (12.0-15.5); LYMPH # 1.8 x10^3/uL (1.0-4.8); LYMPH % 43 % (24-48); MEAN CORPUSCULAR HEMOGLOBIN 31 pg (25-35); MEAN CORPUSCULAR HGB CONC 32 g/dL (31-37); MEAN CORPUSCULAR VOLUME 97 fL (79-100); MONO # 0.4 x10^3/uL (0.0-1.1); MONO % 10 % (0-9); NEUT % 46 % (31-73); PLATELET COUNT 166 x10^3/uL (140-400); RED BLOOD COUNT 3.26 x10^6/uL (3.50-5.40); RED CELL DISTRIBUTION WIDTH 18.4 % (11.5-14.5); WHITE BLOOD COUNT 4.3 x10^3/uL (4.0-11.0)
[2018-07-12 20:02] LABS: CALCIUM 9.2 mg/dL (8.5-10.1); CREATININE 2.1 mg/dL (0.6-1.0); GFR 27.4
[2018-07-12 20:11] LABS: ALBUMIN 3.4 g/dL (3.4-5.0); ALBUMIN/GLOBULIN RATIO 0.9 (1.0-1.7); TOTAL BILIRUBIN 0.2 mg/dL (0.2-1.0); TOTAL PROTEIN 7.4 g/dL (6.4-8.2)
--- NOTE | 2018-07-12 21:08 | PHYS DOC ---
Past Medical History Past Medical History: Anxiety, Cancer, COPD, Heart Disease, Hypertension Additional Past Medical Histor: tachycardia syndrome, gout Past Surgical History: Appendectomy, Cholecystectomy, Hip Replacement, Hysterectomy Additional Past Surgical Histo: bunionectomy, lower back surgery, lung resection, carpal tunnel, cataracts Alcohol Use: None Drug Use: None Adult General Chief Complaint Chief Complaint: FLU SYMPTOM HPI HPI Patient is a 83 year old female who presents to the emergency department with complaints of cough and cold symptoms for several days. Patient states she's been taking azithromycin that was prescribed by her primary care doctor for the last two days and denies any improvement in her symptoms. Patient complains of her chest hurting when she coughs. Patient denies any palpitations, nausea, vomiting, diarrhea, abdominal pain, back pain, fever, or sore throat. Review of Systems Review of Systems Constitutional: Denies fever or chills [] Eyes: Denies change in visual acuity, redness, or eye pain [] HENT: Denies nasal congestion or sore throat [] Respiratory: See HPI Cardiovascular: No additional information not addressed in HPI [] GI: Denies abdominal pain, nausea, vomiting, or diarrhea [] : Denies dysuria or hematuria [] Musculoskeletal: Denies back pain or joint pain; See HPI [] Integument: Denies rash or skin lesions [] Neurologic: Denies headache, focal weakness or sensory changes [] Complete systems were reviewed and found to be within normal limits, except as documented in this note. Current Medications Current Medications Current Medications Medications (Trade) Dose Ordered Sig/Fortunato Start Time Stop Time Status Last Admin Dose Admin Albuterol/ Ipratropium (Duoneb) 3 ml 1X ONCE 07/12/18 18:45 07/12/18 18:46 DC 07/12/18 18:41 3 ML Dexamethasone Sodium Phosphate (Decadron) 10 mg 1X ONCE 07/12/18 18:30 07/12/18 18:32 DC 07/12/18 19:46 10 MG Allergies Allergies Allergies Coded Allergies Type Severity Reaction Last Updated Verified tomato Allergy Severe 09/08/16 Yes strawberry Allergy Intermediate 09/07/16 Yes Physical Exam Physical Exam Constitutional: Well developed, well nourished, no acute distress, non-toxic appearance. [] HENT: Normocephalic, atraumatic, bilateral external ears normal, oropharynx moist, nose normal. [] Eyes: conjunctiva normal, no discharge. [] Neck: Normal range of motion, no stridor. [] Cardiovascular:Heart rate regular rhythm Lungs & Thorax: Bilateral breath sounds wheezing and diminished, no retractions, patient speaks full sentences Abdomen: Bowel sounds normal, soft, no tenderness, no masses, no pulsatile masses. [] Skin: Warm, dry, no erythema, no rash. [] Extremities: No cyanosis, ROM intact, no deformities. Neurologic: Alert and oriented X 3, no focal deficits noted. [] Psychologic: Affect normal, judgement normal, mood normal. [] Current Patient Data Vital Signs Lab Values Laboratory Tests Test 07/12/18 19:35 White Blood Count 4.3 x10^3/uL (4.0-11.0) Red Blood Count 3.26 x10^6/uL (3.50-5.40) L Hemoglobin 10.1 g/dL (12.0-15.5) L Hematocrit 31.6 % (36.0-47.0) L Mean Corpuscular Volume 97 fL (79-100) Mean Corpuscular Hemoglobin 31 pg (25-35) Mean Corpuscular Hemoglobin Concent 32 g/dL (31-37) Red Cell Distribution Width 18.4 % (11.5-14.5) H Platelet Count 166 x10^3/uL (140-400) Neutrophils (%) (Auto) 46 % (31-73) Lymphocytes (%) (Auto) 43 % (24-48) Monocytes (%) (Auto) 10 % (0-9) H Eosinophils (%) (Auto) 1 % (0-3) Basophils (%) (Auto) 0 % (0-3) Neutrophils # (Auto) 2.0 x10^3uL (1.8-7.7) Lymphocytes # (Auto) 1.8 x10^3/uL (1.0-4.8) Monocytes # (Auto) 0.4 x10^3/uL (0.0-1.1) Eosinophils # (Auto) 0.0 x10^3/uL (0.0-0.7) Basophils # (Auto) 0.0 x10^3/uL (0.0-0.2) Sodium Level 146 mmol/L (136-145) H Potassium Level 4.0 mmol/L (3.5-5.1) Chloride Level 107 mmol/L (98-107) Carbon Dioxide Level 26 mmol/L (21-32) Anion Gap 13 (6-14) Blood Urea Nitrogen 48 mg/dL (7-20) H Creatinine 2.1 mg/dL (0.6-1.0) H Estimated GFR (Cockcroft-Gault) 27.4 BUN/Creatinine Ratio 23 (6-20) H Glucose Level 91 mg/dL (70-99) Lactic Acid Level 1.4 mmol/L (0.4-2.0) Calcium Level 9.2 mg/dL (8.5-10.1) Total Bilirubin 0.2 mg/dL (0.2-1.0) Aspartate Amino Transferase (AST) 29 U/L (15-37) Alanine Aminotransferase (ALT) 12 U/L (14-59) L Alkaline Phosphatase 115 U/L (46-116) Troponin I Quantitative < 0.017 ng/mL (0.000-0.055) IN-Ifz-J-Type Natriuretic Peptide 214 pg/mL (0-449) Total Protein 7.4 g/dL (6.4-8.2) Albumin 3.4 g/dL (3.4-5.0) Albumin/Globulin Ratio 0.9 (1.0-1.7) L Laboratory Tests 07/12/18 19:35 Laboratory Tests 07/12/18 19:35 Microbiology 07/12/18 Blood Culture - Final, Complete NO GROWTH AFTER 5 DAYS EKG EKG 1720- SR No STEMI, rate 93, read by Dr. Lagunas[] Radiology/Procedures Radiology/Procedures CXR CHF read by Dr. Galindo[] PROCEDURE: CHEST PA & LATERAL EXAM: PA and Lateral Views of the Chest DATE: 07/12/2018 6:50 PM INDICATION: Shortness of air, COUGH X5 DAYS COMPARISON: 09/09/2016 FINDINGS: The heart is not enlarged. Aortic calcifications are seen. Mediastinal and hilar contours are stable. No lobar consolidation. Emphysematous changes are seen. Blunting of the right costophrenic angle likely trace right pleural effusion versus pleural thickening. Thoracolumbar scoliosis. Right chest wall deformity likely with associated rib resection, grossly unchanged. IMPRESSION: Bilateral emphysematous changes are seen without lobar consolidation. Blunting right costophrenic angle, trace pleural effusion versus pleural thickening.z Course & Med Decision Making Course & Med Decision Making Pertinent Labs and Imaging studies reviewed. (See chart for details) dx: CHF, shortness of breath 2112- spoke with Dr. Brenner who will admit patient [] Dragon Disclaimer Dragon Disclaimer This electronic medical record was generated, in whole or in part, using a voice recognition dictation system. Departure Departure Impression: Primary Impression: CHF (congestive heart failure) Additional Impression: Shortness of breath Disposition: ADMITTED INPATIENT Admitting Physician: Liang Brenner Condition: STABLE Referrals: LIANG BRENNER MD (PCP) Scripts [Pantoprazole] 40 MG TABLET.DR Jacobson Conflict Check 40 MG PO DAILYAC for dyspepsia for 30 Days, #30 Prov: LIANG BRENNER MD 07/18/18 Problem Qualifiers Primary Impression: CHF (congestive heart failure) Heart failure type: unspecified Heart failure chronicity: unspecified Qualified Codes: I50.9 - Heart failure, unspecified EMELY VALVERDE APRN Jul 12, 2018 21:08
[2018-07-12 23:30] VITALS: BP 148/74
--- NOTE | 2018-07-12 23:30 | NUR ---
The patient, VITA BOWSER, 83 y/o, F admitted by LIANG WILDER MD, was given written information regarding hospital policies, unit procedures and contact persons. Valuables were checked and left with the patient .
--- NOTE | 2018-07-12 23:45 | RAD ---
EXAM: PA and Lateral Views of the Chest DATE: 07/12/2018 6:50 PM INDICATION: Shortness of air, COUGH X5 DAYS COMPARISON: 09/09/2016 FINDINGS: The heart is not enlarged. Aortic calcifications are seen. Mediastinal and hilar contours are stable. No lobar consolidation. Emphysematous changes are seen. Blunting of the right costophrenic angle likely trace right pleural effusion versus pleural thickening. Thoracolumbar scoliosis. Right chest wall deformity likely with associated rib resection, grossly unchanged. IMPRESSION: Bilateral emphysematous changes are seen without lobar consolidation. Blunting right costophrenic angle, trace pleural effusion versus pleural thickening.z Electronically signed by: Allan Xie MD (07/12/2018 11:43 PM) [facility]
[2018-07-13] MEDS ORDERED: GABA-585 PO (01:19)
[2018-07-13] MEDS ORDERED: UMEC1DIS IH (01:19)
[2018-07-13 02:55] VITALS: BP 125/62
[2018-07-13 07:05] VITALS: BP 173/84
[2018-07-13] MEDS ORDERED: AZITHROMYCIN 250 MG TABLET. PO ONE (08:15)
--- NOTE | 2018-07-13 08:22 | PDOC ---
Provider Note Provider Note [id number] acute on chronic resp fail ae of copd acute bronchitis see orders. YSABEL MILLIGAN MD Jul 13, 2018 08:22
[2018-07-13] MEDS: methylPREDNISolone SOD SUCC PF 40 MG/ML VIAL. IV SCH ×3 (08:53→22:03)
[2018-07-13] MEDS: PANTOPRAZOLE 40 MG TABLET.DR. PO SCH (08:53)
[2018-07-13] MEDS: cefTRIAXone IV Push 1 GM VIAL. IVP SCH (08:54)
[2018-07-13] MEDS: ENOXAPARIN 30 MG/0.3 ML SYRINGE. SQ SCH (08:54)
--- NOTE | 2018-07-13 09:21 | CONS ---
DATE OF CONSULTATION: 07/13/2018 I was asked to see this 83-year-old lady for shortness of breath. HISTORY OF PRESENT ILLNESS: She has a history of [id number] smoking, stopped smoking in 1999. She has chronic respiratory failure, is on oxygen 2 liters via nasal cannula continuously. She has COPD. She had lung cancer about 5 years ago, she underwent right upper lobectomy. She has had increased shortness of breath, cough with yellow sputum production, wheezing, chills for the past few days. She denies gastroesophageal reflux symptoms. PAST MEDICAL HISTORY: COPD, CHF, hypertension. PAST SURGICAL HISTORY: Appendectomy, cholecystectomy, right upper lobectomy for lung cancer. ALLERGIES: STRAWBERRY, TOMATO. MEDICATIONS: The patient was given DuoNeb and dexamethasone in the Emergency Room. SOCIAL HISTORY: History of [id number] smoking, stopped smoking in 1999. FAMILY HISTORY: Hypertension. REVIEW OF SYSTEMS: As mentioned as above, other systems otherwise negative. PHYSICAL EXAMINATION: GENERAL: This is an elderly lady. VITAL SIGNS: Her O2 saturation is 96%, respiratory rate 18, heart rate 79, blood pressure 172/84, temperature 97.6. HEENT: Normocephalic, atraumatic. Pupils equal, round, reactive to light. Throat is clear. Nose: There is inflamed mucosa. NECK: There is no JVD, lymphadenopathy or thyromegaly. CARDIOVASCULAR: Regular rate and rhythm. CHEST: Inspection is normal. LUNGS: There is bilateral end expiratory wheezing with dullness at the bases. ABDOMEN: Soft. Bowel sounds are good. There is no mass. EXTREMITIES: There is no edema. LYMPHATICS: There is no lymphadenopathy. NEUROLOGIC: Alert and oriented. SKIN: Chronic changes. LABORATORY DATA: I reviewed the following lab data: Chest x-ray shows prominent right hilar area COPD changes, trace pleural effusion versus pleural thickening. WBC 4.3, hemoglobin 10.1, platelet 266. Sodium 146, potassium 4, chloride 107, CO2 26, glucose 91, BUN 48, creatinine 2.1. BNP 214. Lactic acid 1.4. Troponin less than 0.017. IMPRESSION: 1. Acute on chronic respiratory failure secondary to acute exacerbation of chronic obstructive pulmonary disease and acute bronchitis versus others. 2. Abnormal chest x-ray. 3. Acute exacerbation of chronic obstructive pulmonary disease. 4. Acute bronchitis. 5. Ex-smoker. 6. History of lung cancer, status post right upper lobectomy. 7. Acute kidney injury, chronic kidney disease. 8. Anemia. PLAN AND RECOMMENDATIONS: 1. Titrate FiO2 to keep O2 saturation 92%. 2. Bronchodilator. 3. Start inhaled corticosteroid. 4. Start Solu-Medrol 40 mg IV every 8 hours. Monitor blood glucose. 5. Lovenox for DVT prophylaxis. 6. Protonix for stress ulcer prophylaxis. 7. Start Rocephin and azithromycin. 8. We will do a CT of the chest. 9. Nasal swab for influenza A and B. 10. The findings and recommendations were discussed with the patient. She understood and agreed to proceed with the plan. I have answered all of her questions. Thank you very much for allowing me to participate in care of this very nice lady. YSABEL MILLIGAN M.D. DR: Damaris JOB#: [id number] / [id number]
--- NOTE | 2018-07-13 09:26 | RAD ---
CT chest without contrast. HISTORY: Short of breath, history lung cancer CT scan of the chest was done without contrast. Comparison is made with a study from August 2016. Thyroid is homogeneous. There is no mediastinal adenopathy or pleural effusion. Visualized portions of the liver and spleen are unremarkable. Adrenal glands are normal. There is a cyst at the upper pole of the right kidney. There is no pleural effusion. Patient's had a right thoracotomy. Lungs are free of acute infiltrates. Mild scarring in the left lung base there is a 2 mm nodule on image #34 in the left lung behind the fissure. There is a calcified granuloma in the left lung. There is arthritis in both shoulders. There is a focus of scarring in the posterior right lower lobe without change from the old study. IMPRESSION: 1. Tiny left lung nodule Fleischner Society guidelines recommend an optional one-year follow-up. 2. Previous right thoracotomy. 3. No other pulmonary nodule or mass noted. 4. No adenopathy noted. 5. Mild scarring without confluent infiltrates. Electronically signed by: Eliel Angeles MD (07/13/2018 9:22 AM) [facility]
--- NOTE | 2018-07-13 11:23 | PDOC ---
Provider Note Provider Note [id number] LAVONNE HENRIQUEZ MD Jul 13, 2018 11:23
[2018-07-13] MEDS: IPRATRPIUM/ALBUTEROL 0.5/2.5MG 3 ML NEBU. NEB SCH ×3 (11:24→20:27)
[2018-07-13 11:25] VITALS: BP 163/84
[2018-07-13] MEDS: BUDESONIDE 0.5 MG/2 ML NEBU. NEB SCH ×2 (11:26→20:27)
[2018-07-13] MEDS ORDERED: HYDROcodone/APAP 7.5/325MG 1 TAB TABLET PO PRN (11:30)
[2018-07-13] MEDS ORDERED: ONDANSETRON ODT 4 MG TAB.RAPDIS. PO PRN (11:45)
--- NOTE | 2018-07-13 11:48 | HP ---
ADMIT DATE: 07/12/2018 CHIEF COMPLAINT: Difficulty breathing. HISTORY OF PRESENT ILLNESS: An 83-year-old white female with COPD, on oxygen at home and came in with increasing shortness of breath, cough and sputum production. Chest x-ray and CT were clear. Labs unremarkable except for elevated creatinine of 2.1 with a normal baseline of 1.4. She has been started on Rocephin and Zithromax and steroids at this point and remained stable. PAST MEDICAL HISTORY: Well documented in the old record. Normal baseline creatinine 1.4. ALLERGIES: No drug allergies are noted. SOCIAL HISTORY: Quit smoking years ago, , nondrinker, physically active. Limited. REVIEW OF SYSTEMS: No other complaints. OBJECTIVE: ENT: All within normal limits. NECK: No masses, nodes or bruits. LUNGS: Decreased breath sounds, fine expiratory wheezes. CARDIOVASCULAR: Regular rate. No murmur. ABDOMEN: Benign, soft, nontender. EXTREMITIES: Decreased pedal and radial pulses. Skin turgor mildly decreased. NEUROLOGIC: Physiologic. ASSESSMENT: 1. Acute exacerbation of chronic obstructive pulmonary disease. No active pneumonia or pulmonary embolus. 2. Acute kidney injury. Baseline creatinine 1.4, now 2.1, likely secondary to dehydration and meds Lasix. PLAN: We will hold certain medications while on current meds and give IV fluids to rehydrate and follow renal function. LAVONNE HENRIQUEZ MD DR: XIN/korin JOB#: [id number] / [id number]
[2018-07-13] MEDS: ROFLUMILAST 500 MCG TABLET. PO SCH (11:51)
[2018-07-13] MEDS: ALLOPURINOL 100 MG TABLET. PO SCH (11:51)
[2018-07-13] MEDS: METOPROLOL SUCC 24HR ER 25 MG TAB.ER.24H. PO SCH (11:52)
[2018-07-13] MEDS: POTASSIUM CL 20MEQ D5-0.45NACL 1,000 ML IV SCH ×2 (11:52→22:04)
[2018-07-13 12:31] LABS: INFLUENZA A PATIENT NEGATIVE (NEGATIVE); INFLUENZA B PATIENT NEGATIVE (NEGATIVE)
--- NOTE | 2018-07-13 12:58 | CONS ---
DATE OF CONSULTATION: 07/13/2018 REASON FOR CONSULTATION: Dyspnea. HISTORY OF PRESENT ILLNESS: She is a pleasant 83-year-old woman with past medical history as noted below, who presented with coughing and difficulty breathing. Initial working diagnosis is COPD exacerbation and she has been seen by Pulmonary team. Cardiology has been asked to help evaluate for any cardiac issues. Her initial evaluation in the ER did not reveal any significant cardiac pathology. PAST MEDICAL HISTORY: 1. Hypertension. 2. History of lung cancer, status post right partial pneumonectomy. 3. History of chronic kidney disease. 4. History of chronic obstructive pulmonary disease. SOCIAL HISTORY: The patient lives alone. Denies any alcohol, tobacco or illicit drug use. FAMILY HISTORY: Noncontributory. ALLERGIES: TO STRAWBERRY AND TOMATO. CURRENT CARDIAC MEDICATIONS: Metoprolol 25 mg XL daily. REVIEW OF SYSTEMS: Negative for 10 out of 14 systems reviewed, unless otherwise mentioned above in the HPI. PHYSICAL EXAMINATION: VITAL SIGNS: Afebrile, 92, 18, 163/84 and 99% on 2 liters via nasal cannula. GENERAL: She is weak and tired and slightly sleepy. HEAD AND NECK EXAMINATION: Otherwise unremarkable. CARDIAC: Regular rate and rhythm, without any murmurs. LUNGS: Notable for diffuse bilateral significant rhonchi. ABDOMEN: Soft, nontender and nondistended. EXTREMITIES: Without any cyanosis or edema. Distal pulses are nonpalpable. NEUROLOGIC: No focal deficits, but overall she is weak. MUSCULOSKELETAL: No trauma. DIAGNOSTIC STUDIES: Echocardiogram and myocardial perfusion study approximately one year ago were within normal limits, with a preserved ejection fraction. Hemoglobin 10.1 and has been stable. Creatinine is elevated at 2.1, from a baseline of 1.[address] demonstrates no obvious effusion or congestive heart failure. IMPRESSION: 1. Dyspnea secondary to pulmonary etiology, likely bronchitis or chronic obstructive pulmonary disease exacerbation. 2. Chest pain, noncardiac in nature, with previous testing revealing normal left ventricular function and no evidence of ischemia. RECOMMENDATIONS: At this present time, she does not have any obvious signs of heart failure or ischemia, with negative enzymes, normal BNP and an overall picture consistent with bronchitis and dehydration. Treatment per primary team. Please call with any further questions. TOÑA MITCHELL MD DR: VERNON/korin JOB#: [id number] / [id number]
[2018-07-13] MEDS ORDERED: IPRATRPIUM/ALBUTEROL 0.5/2.5MG 3 ML NEBU. NEB SCH (13:00)
[2018-07-13 15:08] VITALS: BP 158/82
--- NOTE | 2018-07-13 17:10 | EKG ---
[facility] [address] [place] [address] Test Date: 2018-07-12 Test Time: 17:20:53 Pat Name: VITA BOWSER Department: Room: 506 1 Gender: F Head Of Biology: : 1935 Requested By: EMELY VALVERDE Order Number: [id number] Reading MD: Suhbham Stratton MD Measurements Intervals [place] Rate: 93 P: 62 PA: 142 QRS: -18 QRSD: 86 T: 59 QT: 352 QTc: 440 Interpretive Statements SINUS RHYTHM NON-SPECIFIC ST/T CHANGES Electronically Signed On 07-18-2018 14:01:49 CDT by Shubham Stratton MD
[2018-07-13 19:00] VITALS: BP 152/73
[2018-07-13] MEDS: LACTOBACILLUS RHAMNOSUS GG 1 CAPSULE. PO SCH (20:38)
[2018-07-13] MEDS: GABAPENTIN 100 MG CAPSULE. PO SCH (20:38)
[2018-07-13] MEDS: LATANOPROST 0.005% OPHTH SOLUTION 2.5ML BOTTLE. OU SCH (20:39)
[2018-07-13 23:00] VITALS: BP 147/70
[2018-07-14 03:00] VITALS: BP 135/67
[2018-07-14] MEDS: methylPREDNISolone SOD SUCC PF 40 MG/ML VIAL. IV SCH ×2 (06:10→20:44)
[2018-07-14 07:00] VITALS: BP 149/56
--- NOTE | 2018-07-14 07:51 | PDOC ---
PULMONARY PROGRESS NOTES Subjective has diarrhea c diff pending, sob slightly better, has cough, wheezing, has dela cruz Vitals Vital Signs Date Time Temp Pulse Resp B/P (MAP) Pulse Ox O2 Delivery O2 Flow Rate FiO2 07/14/18 03:00 97.9 100 18 135/67 (89) 98 Nasal Cannula 2.0 97.9 ROS: No Nausea, No Chest Pain General: Alert (nc at perrl ) HEENT: Other Lungs: Wheezing Cardiovascular: S1, S2 Abdomen: Soft, Non-tender Neuro Exam: Alert Extremities: No Edema Skin: Warm Labs Laboratory Tests Test 07/12/18 19:35 07/13/18 09:12 White Blood Count 4.3 x10^3/uL (4.0-11.0) Red Blood Count 3.26 x10^6/uL (3.50-5.40) Hemoglobin 10.1 g/dL (12.0-15.5) Hematocrit 31.6 % (36.0-47.0) Mean Corpuscular Volume 97 fL (79-100) Mean Corpuscular Hemoglobin 31 pg (25-35) Mean Corpuscular Hemoglobin Concent 32 g/dL (31-37) Red Cell Distribution Width 18.4 % (11.5-14.5) Platelet Count 166 x10^3/uL (140-400) Neutrophils (%) (Auto) 46 % (31-73) Lymphocytes (%) (Auto) 43 % (24-48) Monocytes (%) (Auto) 10 % (0-9) Eosinophils (%) (Auto) 1 % (0-3) Basophils (%) (Auto) 0 % (0-3) Neutrophils # (Auto) 2.0 x10^3uL (1.8-7.7) Lymphocytes # (Auto) 1.8 x10^3/uL (1.0-4.8) Monocytes # (Auto) 0.4 x10^3/uL (0.0-1.1) Eosinophils # (Auto) 0.0 x10^3/uL (0.0-0.7) Basophils # (Auto) 0.0 x10^3/uL (0.0-0.2) Sodium Level 146 mmol/L (136-145) Potassium Level 4.0 mmol/L (3.5-5.1) Chloride Level 107 mmol/L (98-107) Carbon Dioxide Level 26 mmol/L (21-32) Anion Gap 13 (6-14) Blood Urea Nitrogen 48 mg/dL (7-20) Creatinine 2.1 mg/dL (0.6-1.0) Estimated GFR (Cockcroft-Gault) 27.4 BUN/Creatinine Ratio 23 (6-20) Glucose Level 91 mg/dL (70-99) Lactic Acid Level 1.4 mmol/L (0.4-2.0) Calcium Level 9.2 mg/dL (8.5-10.1) Total Bilirubin 0.2 mg/dL (0.2-1.0) Aspartate Amino Transf (AST/SGOT) 29 U/L (15-37) Alanine Aminotransferase (ALT/SGPT) 12 U/L (14-59) Alkaline Phosphatase 115 U/L (46-116) Troponin I Quantitative < 0.017 ng/mL (0.000-0.055) [id number] Natriuretic Peptide 214 pg/mL (0-449) Total Protein 7.4 g/dL (6.4-8.2) Albumin 3.4 g/dL (3.4-5.0) Albumin/Globulin Ratio 0.9 (1.0-1.7) Influenza Type A Antigen Negative (NEGATIVE) Influenza Type B Antigen Negative (NEGATIVE) Laboratory Tests Test 07/13/18 09:12 Influenza Type A Antigen Negative (NEGATIVE) Influenza Type B Antigen Negative (NEGATIVE) Medications Active Scripts Medications Dose Route/Sig Max Daily Dose Days Date Category Gabapentin (Gabapentin) 100 Mg Capsule 100 Mg PO TID 07/13/18 Reported Anoro Ellipta 62.5-25 Mcg Inh (Umeclidinium Brm/Vilanterol Tr) 1 Each Disk.w.dev 1 Each IH DAILY 07/13/18 Reported Celebrex (Celecoxib) 200 Mg Capsule 200 Mg PO BID 30 06/19/17 Reported Hydrocodone-Apap 7.5-325 (Hydrocodone Bit/Acetaminophen) 1 Each Tablet 1-2 Tab PO PRN Q6HRS PRN 06/16/17 Reported Daliresp (Roflumilast) 500 Mcg Tablet 500 Mcg PO DAILY 06/16/17 Reported Nitrostat (Nitroglycerin) 0.4 Mg Tab.subl 0.4 Mg SL PRN Q5MIN PRN 06/02/16 Rx Aspirin Ec (Aspirin) 81 Mg Tablet.dr 81 Mg PO DAILYWBKFT 06/02/16 Rx Duoneb 0.5-3(2.5) Mg/3 Ml (Albuterol/Ipratropium) 3 Ml Ampul.neb 3 Ml NEB QID 05/31/16 Reported Ventolin Hfa Inhaler (Albuterol Sulfate) 18 Gm Hfa.aer.ad 2 Puff INH PRN QID PRN 05/31/16 Reported Zofran (Ondansetron Hcl) 4 Mg Tablet 1 Tab PO Q6HRS 05/31/16 Reported Metoprolol Succinate ( Xl ) (Metoprolol Succinate) 25 Mg Tab.er.24h 1 Tab PO DAILY 05/31/16 Reported Lasix (Furosemide) 40 Mg Tablet 1 Tab PO DAILY 05/31/16 Reported Travatan Z (Travoprost) 5 Ml Drops 1 Drop EACHEYE QHS 01/05/15 Reported Cyclobenzaprine Hcl 10 Mg Tablet 1 Tab PO PRN TID 01/05/15 Reported Allopurinol 300 Mg Tablet 1 Tab PO DAILY 01/05/[address], 1. Tiny left lung nodule Fleischner Society guidelines recommend an optional one-year follow-up. 2. Previous right thoracotomy. 3. No other pulmonary nodule or mass noted. 4. No adenopathy noted. 5. Mild scarring without confluent infiltrates. Impression . IMPRESSION: 1. Acute on chronic respiratory failure secondary to acute exacerbation of chronic obstructive pulmonary disease and acute bronchitis versus others. 2. Abnormal chest x-ray. 3. Acute exacerbation of chronic obstructive pulmonary disease. 4. Acute bronchitis. 5. Ex-smoker. 6. History of lung cancer, status post right upper lobectomy. 7. Acute kidney injury, chronic kidney disease. 8. Anemia. Plan . PLAN AND RECOMMENDATIONS: 1. Titrate FiO2 to keep O2 saturation 92%. 2. Bronchodilator. 3. inhaled corticosteroid. 4. still has cough, wheezing, cont Solu-Medrol 40 mg IV every 8 hours. Monitor blood glucose. 5. Lovenox for DVT prophylaxis. 6. Protonix for stress ulcer prophylaxis. 7. Rocephin and azithromycin. 8. reviewed, CT of the chest, tiny pulm nodule, fu ct in 1 year. 9. Nasal swab for influenza A and B, neg 10. legionella and strep pneumonia ag 11. fu c diff toxin The findings and recommendations were discussed with the patient. YSABEL MILLIGAN MD Jul 14, 2018 07:51
[2018-07-14] MEDS ORDERED: ASPIRIN ENTERIC COATED 81 MG TABLET.DR. PO SCH (08:00)
[2018-07-14] MEDS: ROFLUMILAST 500 MCG TABLET. PO SCH (08:15)
[2018-07-14] MEDS: ENOXAPARIN 30 MG/0.3 ML SYRINGE. SQ SCH (08:15)
[2018-07-14] MEDS: POTASSIUM CL 20MEQ D5-0.45NACL 1,000 ML IV SCH ×2 (08:15→18:26)
[2018-07-14] MEDS ORDERED: AZITHROMYCIN 250 MG TABLET. PO ONE (08:15)
[2018-07-14] MEDS: LACTOBACILLUS RHAMNOSUS GG 1 CAPSULE. PO SCH ×2 (08:15→20:43)
[2018-07-14] MEDS: METOPROLOL SUCC 24HR ER 25 MG TAB.ER.24H. PO SCH (08:16)
[2018-07-14] MEDS: ALLOPURINOL 100 MG TABLET. PO SCH (08:16)
[2018-07-14] MEDS: PANTOPRAZOLE 40 MG TABLET.DR. PO SCH (08:16)
[2018-07-14] MEDS: GABAPENTIN 100 MG CAPSULE. PO SCH ×2 (08:16→20:43)
[2018-07-14] MEDS: cefTRIAXone IV Push 1 GM VIAL. IVP SCH (08:16)
[2018-07-14 08:22] LABS: HEMATOCRIT 34.9 % (36.0-47.0); HEMOGLOBIN 10.9 g/dL (12.0-15.5); RED BLOOD COUNT 3.65 x10^6/uL (3.50-5.40); RED CELL DISTRIBUTION WIDTH 18.2 % (11.5-14.5)
[2018-07-14] MEDS: ACETAMINOPHEN 500 MG TABLET PO PRN ×2 (08:23→22:42)
[2018-07-14 08:43] LABS: CALCIUM 9.8 mg/dL (8.5-10.1); CREATININE 1.4 mg/dL (0.6-1.0); GFR 43.7; POTASSIUM 4.6 mmol/L (3.5-5.1)
[2018-07-14] MEDS: IPRATRPIUM/ALBUTEROL 0.5/2.5MG 3 ML NEBU. NEB SCH ×4 (09:02→20:26)
[2018-07-14] MEDS: BUDESONIDE 0.5 MG/2 ML NEBU. NEB SCH ×2 (09:02→20:26)
--- NOTE | 2018-07-14 09:52 | PDOC ---
Provider Note Provider Note no temp, vss, bettter urine output- less exp wheezes, tachy re albuterol- creat down 1.4 to baseline so will reduce fluids- rest same pending lab/cults LAVONNE HENRIQUEZ MD Jul 14, 2018 09:52
[2018-07-14 11:00] VITALS: BP 116/59
[2018-07-14 15:00] VITALS: BP 115/60
[2018-07-14 16:17] LABS: BILIRUBIN,URINE NEGATIVE (NEG); CLARITY,URINE CLEAR; COLOR,URINE YELLOW; NITRITE,URINE NEGATIVE (NEG); PROTEIN,URINE NEGATIVE (NEG-TRACE); UROBILINOGEN,URINE 0.2 mg/dL (0.2 mg/dL)
[2018-07-14 16:30] LABS: BACTERIA,URINE 0 /HPF (0-FEW); HYALINE CASTS, URINE OCCASIONAL /HPF; RBC,URINE 0 /HPF (0-2); SQUAMOUS EPITHELIAL CELL,UR OCC /LPF; WBC,URINE 0 /HPF (0-4)
[2018-07-14 19:00] VITALS: BP 129/68
[2018-07-14] MEDS: LATANOPROST 0.005% OPHTH SOLUTION 2.5ML BOTTLE. OU SCH (20:44)
[2018-07-14 23:00] VITALS: BP 140/74
[2018-07-15 03:00] VITALS: BP 136/71
[2018-07-15 07:00] VITALS: BP 176/95
[2018-07-15] MEDS: PANTOPRAZOLE 40 MG TABLET.DR. PO SCH (07:50)
[2018-07-15] MEDS: ROFLUMILAST 500 MCG TABLET. PO SCH (07:54)
[2018-07-15] MEDS: GABAPENTIN 100 MG CAPSULE. PO SCH ×2 (07:54→21:25)
[2018-07-15] MEDS: cefTRIAXone IV Push 1 GM VIAL. IVP SCH (07:55)
[2018-07-15] MEDS: ENOXAPARIN 30 MG/0.3 ML SYRINGE. SQ SCH (07:56)
[2018-07-15] MEDS: methylPREDNISolone SOD SUCC PF 40 MG/ML VIAL. IV SCH ×3 (07:57→21:25)
[2018-07-15] MEDS: LACTOBACILLUS RHAMNOSUS GG 1 CAPSULE. PO SCH ×2 (07:57→21:25)
[2018-07-15] MEDS: ALLOPURINOL 100 MG TABLET. PO SCH (08:00)
[2018-07-15] MEDS: BUDESONIDE 0.5 MG/2 ML NEBU. NEB SCH ×2 (08:00→20:31)
[2018-07-15] MEDS: METOPROLOL SUCC 24HR ER 25 MG TAB.ER.24H. PO SCH (08:01)
[2018-07-15] MEDS: IPRATRPIUM/ALBUTEROL 0.5/2.5MG 3 ML NEBU. NEB SCH ×4 (08:30→20:31)
[2018-07-15] MEDS ORDERED: AZITHROMYCIN 250 MG TABLET. PO SCH (09:00)
[2018-07-15 11:00] VITALS: BP 142/70
--- NOTE | 2018-07-15 11:18 | PDOC ---
PULMONARY PROGRESS NOTES Subjective has diarrhea c diff pending, sob slightly better, has cough, wheezing, Vitals Vital Signs Date Time Temp Pulse Resp B/P (MAP) Pulse Ox O2 Delivery O2 Flow Rate FiO2 07/15/18 08:31 100 Nasal Cannula 2.0 07/15/18 08:01 101 136/71 07/15/18 07:00 98.5 18 98.5 ROS: No Nausea, No Chest Pain General: Alert (nc at perrl ) HEENT: Other Lungs: Wheezing (FAINT) Cardiovascular: S1, S2 Abdomen: Soft, Non-tender Neuro Exam: Alert Extremities: No Edema Skin: Warm Labs Laboratory Tests Test 07/13/18 20:00 07/14/18 06:50 07/14/18 16:00 Clostridium difficile Toxin B Gene Negative (Negative) White Blood Count 11.0 x10^3/uL (4.0-11.0) Red Blood Count 3.65 x10^6/uL (3.50-5.40) Hemoglobin 10.9 g/dL (12.0-15.5) Hematocrit 34.9 % (36.0-47.0) Mean Corpuscular Volume 96 fL (79-100) Mean Corpuscular Hemoglobin 30 pg (25-35) Mean Corpuscular Hemoglobin Concent 31 g/dL (31-37) Red Cell Distribution Width 18.2 % (11.5-14.5) Platelet Count 193 x10^3/uL (140-400) Sodium Level 143 mmol/L (136-145) Potassium Level 4.6 mmol/L (3.5-5.1) Chloride Level 107 mmol/L (98-107) Carbon Dioxide Level 24 mmol/L (21-32) Anion Gap 12 (6-14) Blood Urea Nitrogen 33 mg/dL (7-20) Creatinine 1.4 mg/dL (0.6-1.0) Estimated GFR (Cockcroft-Gault) 43.7 Glucose Level 104 mg/dL (70-99) Calcium Level 9.8 mg/dL (8.5-10.1) Urine Collection Type Unknown Urine Color Yellow Urine Clarity Clear Urine pH 5.0 Urine Specific [place] 1.015 Urine Protein Negative mg/dL (NEG-TRACE) Urine Glucose (UA) Negative mg/dL (NEG) Urine Ketones (Stick) Negative mg/dL (NEG) Urine Blood Negative (NEG) Urine Nitrite Negative (NEG) Urine Bilirubin Negative (NEG) Urine Urobilinogen Dipstick 0.2 mg/dL (0.2 mg/dL) Urine Leukocyte Esterase Negative (NEG) Urine RBC 0 /HPF (0-2) Urine WBC 0 /HPF (0-4) Urine Squamous Epithelial Cells Occ /LPF Urine Bacteria 0 /HPF (0-FEW) Urine Hyaline Casts Occasional /HPF Laboratory Tests Test 07/14/18 16:00 Urine Collection Type Unknown Urine Color Yellow Urine Clarity Clear Urine pH 5.0 Urine Specific [place] 1.015 Urine Protein Negative mg/dL (NEG-TRACE) Urine Glucose (UA) Negative mg/dL (NEG) Urine Ketones (Stick) Negative mg/dL (NEG) Urine Blood Negative (NEG) Urine Nitrite Negative (NEG) Urine Bilirubin Negative (NEG) Urine Urobilinogen Dipstick 0.2 mg/dL (0.2 mg/dL) Urine Leukocyte Esterase Negative (NEG) Urine RBC 0 /HPF (0-2) Urine WBC 0 /HPF (0-4) Urine Squamous Epithelial Cells Occ /LPF Urine Bacteria 0 /HPF (0-FEW) Urine Hyaline Casts Occasional /HPF Medications Active Scripts Medications Dose Route/Sig Max Daily Dose Days Date Category Gabapentin (Gabapentin) 100 Mg Capsule 100 Mg PO TID 07/13/18 Reported Anoro Ellipta 62.5-25 Mcg Inh (Umeclidinium Brm/Vilanterol Tr) 1 Each Disk.w.dev 1 Each IH DAILY 07/13/18 Reported Celebrex (Celecoxib) 200 Mg Capsule 200 Mg PO BID 30 06/19/17 Reported Hydrocodone-Apap 7.5-325 (Hydrocodone Bit/Acetaminophen) 1 Each Tablet 1-2 Tab PO PRN Q6HRS PRN 06/16/17 Reported Daliresp (Roflumilast) 500 Mcg Tablet 500 Mcg PO DAILY 06/16/17 Reported Nitrostat (Nitroglycerin) 0.4 Mg Tab.subl 0.4 Mg SL PRN Q5MIN PRN 06/02/16 Rx Aspirin Ec (Aspirin) 81 Mg Tablet.dr 81 Mg PO DAILYWBKFT 06/02/16 Rx Duoneb 0.5-3(2.5) Mg/3 Ml (Albuterol/Ipratropium) 3 Ml Ampul.neb 3 Ml NEB QID 05/31/16 Reported Ventolin Hfa Inhaler (Albuterol Sulfate) 18 Gm Hfa.aer.ad 2 Puff INH PRN QID PRN 05/31/16 Reported Zofran (Ondansetron Hcl) 4 Mg Tablet 1 Tab PO Q6HRS 05/31/16 Reported Metoprolol Succinate ( Xl ) (Metoprolol Succinate) 25 Mg Tab.er.24h 1 Tab PO DAILY 05/31/16 Reported Lasix (Furosemide) 40 Mg Tablet 1 Tab PO DAILY 05/31/16 Reported Travatan Z (Travoprost) 5 Ml Drops 1 Drop EACHEYE QHS 01/05/15 Reported Cyclobenzaprine Hcl 10 Mg Tablet 1 Tab PO PRN TID 01/05/15 Reported Allopurinol 300 Mg Tablet 1 Tab PO DAILY 01/05/[address], 1. Tiny left lung nodule Fleischner Society guidelines recommend an optional one-year follow-up. 2. Previous right thoracotomy. 3. No other pulmonary nodule or mass noted. 4. No adenopathy noted. 5. Mild scarring without confluent infiltrates. Impression . IMPRESSION: 1. Acute on chronic respiratory failure secondary to acute exacerbation of chronic obstructive pulmonary disease and acute bronchitis 2. Abnormal CT CHEST WITH SCARRING RLL, 2 MM LEFT LUNG NODULE 3. Acute exacerbation of chronic obstructive pulmonary disease. 4. Acute bronchitis. 5. Ex-smoker. 6. History of lung cancer, status post right upper lobectomy. 7. Acute kidney injury, chronic kidney disease. 8. Anemia. Plan . PLAN AND RECOMMENDATIONS: 1. Titrate FiO2 to keep O2 saturation 92%. 2. Bronchodilator. 3. inhaled corticosteroid. 4. still has cough, wheezing, cont Solu-Medrol 40 mg IV every 8 hours. Monitor blood glucose. 5. Lovenox for DVT prophylaxis. 6. Protonix for stress ulcer prophylaxis. 7. Rocephin and azithromycin. 8. reviewed, CT of the chest, tiny pulm nodule, fu ct in 1 year. 9. Nasal swab for influenza A and B, neg 10. legionella and strep pneumonia ag 11. fu c diff toxin The findings and recommendations were discussed with the patient. FLY BOSTON MD Jul 15, 2018 11:18
[2018-07-15 14:54] VITALS: BP 129/74
[2018-07-15 19:00] VITALS: BP 155/76
[2018-07-15] MEDS: LATANOPROST 0.005% OPHTH SOLUTION 2.5ML BOTTLE. OU SCH (21:26)
[2018-07-15] MEDS: CEFDINIR 300 MG CAPSULE PO SCH (21:26)
--- NOTE | 2018-07-15 21:46 | PDOC ---
GENERAL General: vss and afebrile. awake and alert. still quite sob but slightly improved. O2 at 2L/NC. chest with decreased breath sounds and diffuse wheezing. heart regular, abdomen benign. creatinine decreased to 1.[address] chest without any acute problems. continue treatment of acute exac of copd and await clearing. VITAL SIGNS Vital Signs: Vital Signs Date Time Temp Pulse Resp B/P (MAP) Pulse Ox O2 Delivery O2 Flow Rate FiO2 07/15/18 20:32 99 Nasal Cannula 2.0 07/15/18 19:00 98.3 101 18 155/76 (102) 98.3 I & O I & O Intake and Output 07/15/18 06:59 Intake Total 570 ml Output Total 0 ml Balance 570 ml Intake Oral 570 ml Output Urine Total 0 ml # Voids 7 ALLERGIES Allergies: Allergies Coded Allergies Type Severity Reaction Last Updated Verified tomato Allergy Severe 09/08/16 Yes strawberry Allergy Intermediate 09/07/16 Yes MEDS Medications: Current Medications Medications (Trade) Dose Ordered Sig/[place] Start Time Stop Time Status Last Admin Dose Admin Acetaminophen (Tylenol) 500 mg PRN Q6HRS PRN 07/14/18 08:30 07/14/18 22:42 500 MG Acetaminophen/ Hydrocodone Bitart (Lortab 7.5/325) 1 tab PRN Q6HRS PRN 07/13/18 11:30 07/14/18 02:11 1 TAB Albuterol/ Ipratropium (Duoneb) 3 ml QID 07/13/18 13:00 07/13/18 13:00 DC Allopurinol (Zyloprim) 100 mg DAILY 07/13/18 12:00 07/15/18 08:00 100 MG Aspirin (Ecotrin) 81 mg DAILYWBKFT 07/14/18 08:00 UNV Azithromycin (Zithromax) 250 mg DAILY 07/15/18 09:00 07/15/18 15:10 DC 07/15/18 07:57 250 MG Budesonide (Pulmicort) 0.5 mg RTBID 07/13/18 08:30 07/15/18 20:31 0.5 MG Cefdinir (Omnicef) 300 mg BID 07/15/18 21:00 07/15/18 21:26 300 MG Ceftriaxone Sodium (Rocephin) 1 gm Q24H 07/13/18 08:30 07/15/18 15:10 DC 07/15/18 07:55 1 GM Dexamethasone Sodium Phosphate (Decadron) 10 mg 1X ONCE 07/12/18 18:30 07/12/18 18:32 DC 07/12/18 19:46 10 MG Enoxaparin Sodium (Lovenox 30mg Syringe) 30 mg Q24H 07/13/18 08:30 07/15/18 07:56 30 MG Gabapentin (Neurontin) 100 mg BID 07/13/18 21:00 07/15/18 21:25 100 MG Lactobacillus Rhamnosus (Culturelle) 1 cap BID 07/13/18 21:00 07/15/18 21:25 1 CAP Latanoprost (Xalatan) 1 drop QHS 07/13/18 21:00 07/15/18 21:26 1 DROP Methylprednisolone Sodium Succinate (SOLU-Medrol 40MG VIAL) 40 mg BID 07/14/18 21:00 07/15/18 21:25 40 MG Metoprolol Succinate (Toprol Xl) 25 mg DAILY 07/13/18 12:00 07/15/18 08:01 25 MG Ondansetron HCl (Zofran Odt) 4 mg PRN Q6HRS PRN 07/13/18 11:45 Pantoprazole Sodium (Protonix) 40 mg DAILYAC 07/13/18 09:00 07/15/18 07:50 40 MG Potassium Chloride/Dextrose/ Sod Cl 1,000 ml @ 50 mls/hr Q20H 07/13/18 12:00 07/14/18 18:26 50 MLS/HR Roflumilast (Daliresp) 500 mcg DAILY 07/13/18 12:00 07/15/18 07:54 500 MCG LIANG WILDER MD Jul 15, 2018 21:46
[2018-07-15 23:00] VITALS: BP 148/83
[2018-07-16 03:00] VITALS: BP 154/77
[2018-07-16 07:00] VITALS: BP 180/92
[2018-07-16] MEDS: BUDESONIDE 0.5 MG/2 ML NEBU. NEB SCH ×2 (07:26→19:37)
[2018-07-16] MEDS: IPRATRPIUM/ALBUTEROL 0.5/2.5MG 3 ML NEBU. NEB SCH ×4 (07:26→19:36)
[2018-07-16] MEDS: PANTOPRAZOLE 40 MG TABLET.DR. PO SCH (07:46)
[2018-07-16 07:50] LABS: CREATININE 1.3 mg/dL (0.6-1.0); GFR 47.6; POTASSIUM 4.4 mmol/L (3.5-5.1)
[2018-07-16] MEDS: ACETAMINOPHEN 500 MG TABLET PO PRN ×2 (08:53→19:32)
[2018-07-16] MEDS: CEFDINIR 300 MG CAPSULE PO SCH ×2 (08:54→21:06)
[2018-07-16] MEDS: LACTOBACILLUS RHAMNOSUS GG 1 CAPSULE. PO SCH ×2 (08:54→21:07)
[2018-07-16] MEDS: ENOXAPARIN 30 MG/0.3 ML SYRINGE. SQ SCH (08:54)
[2018-07-16] MEDS: ALLOPURINOL 100 MG TABLET. PO SCH (08:54)
[2018-07-16] MEDS: ROFLUMILAST 500 MCG TABLET. PO SCH (08:55)
[2018-07-16] MEDS: methylPREDNISolone SOD SUCC PF 40 MG/ML VIAL. IV SCH (08:55)
[2018-07-16] MEDS: GABAPENTIN 100 MG CAPSULE. PO SCH ×2 (08:55→21:06)
[2018-07-16] MEDS: METOPROLOL SUCC 24HR ER 25 MG TAB.ER.24H. PO SCH (08:56)
--- NOTE | 2018-07-16 10:14 | PN ---
DATE: 07/16/2018 LOCATION: Room 556. SUBJECTIVE: The patient is awake, alert, still was having marked short of breath, particularly with any sort of movement or exertion. She had a very poor night sleep. OBJECTIVE: VITAL SIGNS: Stable. She is afebrile. She remains on 2 liters per nasal cannula oxygen. CHEST: Reveals diffuse wheezing and decreased air exchange. HEART: Slightly tachycardic, regular. ABDOMEN: Benign. LABORATORY DATA: Creatinine is down to 1.[address] scanning of the chest again showed no acute changes. IMPRESSION: 1. Exacerbation of chronic obstructive pulmonary disease, slow to improve. 2. Status post carcinoma of the lung. 3. Acute renal failure, improving. PLAN: Continue present care and await clearing. LIANG WILDER MD DR: YAJAIRA/korin JOB#: [id number] / [id number]
[2018-07-16 10:42] VITALS: BP 143/77
--- NOTE | 2018-07-16 11:13 | PDOC ---
PULMONARY PROGRESS NOTES Subjective has cough, wheezing, Vitals Vital Signs Date Time Temp Pulse Resp B/P (MAP) Pulse Ox O2 Delivery O2 Flow Rate FiO2 07/16/18 10:42 98.7 105 18 143/77 (99) 99 Nasal Cannula 2.0 98.7 ROS: No Nausea, No Chest Pain General: Alert (nc at perrl ), No acute distress HEENT: Other Lungs: Wheezing (FAINT) Cardiovascular: S1, S2 Abdomen: Soft, Non-tender Neuro Exam: Alert Extremities: No Edema Skin: Warm Labs Laboratory Tests Test 07/14/18 16:00 07/16/18 04:10 Urine Collection Type Unknown Urine Color Yellow Urine Clarity Clear Urine pH 5.0 Urine Specific [place] 1.015 Urine Protein Negative mg/dL (NEG-TRACE) Urine Glucose (UA) Negative mg/dL (NEG) Urine Ketones (Stick) Negative mg/dL (NEG) Urine Blood Negative (NEG) Urine Nitrite Negative (NEG) Urine Bilirubin Negative (NEG) Urine Urobilinogen Dipstick 0.2 mg/dL (0.2 mg/dL) Urine Leukocyte Esterase Negative (NEG) Urine RBC 0 /HPF (0-2) Urine WBC 0 /HPF (0-4) Urine Squamous Epithelial Cells Occ /LPF Urine Bacteria 0 /HPF (0-FEW) Urine Hyaline Casts Occasional /HPF Sodium Level 144 mmol/L (136-145) Potassium Level 4.4 mmol/L (3.5-5.1) Chloride Level 109 mmol/L (98-107) Carbon Dioxide Level 23 mmol/L (21-32) Anion Gap 12 (6-14) Blood Urea Nitrogen 27 mg/dL (7-20) Creatinine 1.3 mg/dL (0.6-1.0) Estimated GFR (Cockcroft-Gault) 47.6 Glucose Level 118 mg/dL (70-99) Calcium Level 9.0 mg/dL (8.5-10.1) Laboratory Tests Test 07/16/18 04:10 Sodium Level 144 mmol/L (136-145) Potassium Level 4.4 mmol/L (3.5-5.1) Chloride Level 109 mmol/L (98-107) Carbon Dioxide Level 23 mmol/L (21-32) Anion Gap 12 (6-14) Blood Urea Nitrogen 27 mg/dL (7-20) Creatinine 1.3 mg/dL (0.6-1.0) Estimated GFR (Cockcroft-Gault) 47.6 Glucose Level 118 mg/dL (70-99) Calcium Level 9.0 mg/dL (8.5-10.1) Medications Active Scripts Medications Dose Route/Sig Max Daily Dose Days Date Category Gabapentin (Gabapentin) 100 Mg Capsule 100 Mg PO TID 07/13/18 Reported Anoro Ellipta 62.5-25 Mcg Inh (Umeclidinium Brm/Vilanterol Tr) 1 Each Disk.w.dev 1 Each IH DAILY 07/13/18 Reported Celebrex (Celecoxib) 200 Mg Capsule 200 Mg PO BID 30 06/19/17 Reported Hydrocodone-Apap 7.5-325 (Hydrocodone Bit/Acetaminophen) 1 Each Tablet 1-2 Tab PO PRN Q6HRS PRN 06/16/17 Reported Daliresp (Roflumilast) 500 Mcg Tablet 500 Mcg PO DAILY 06/16/17 Reported Nitrostat (Nitroglycerin) 0.4 Mg Tab.subl 0.4 Mg SL PRN Q5MIN PRN 06/02/16 Rx Aspirin Ec (Aspirin) 81 Mg Tablet.dr 81 Mg PO DAILYWBKFT 06/02/16 Rx Duoneb 0.5-3(2.5) Mg/3 Ml (Albuterol/Ipratropium) 3 Ml Ampul.neb 3 Ml NEB QID 05/31/16 Reported Ventolin Hfa Inhaler (Albuterol Sulfate) 18 Gm Hfa.aer.ad 2 Puff INH PRN QID PRN 05/31/16 Reported Zofran (Ondansetron Hcl) 4 Mg Tablet 1 Tab PO Q6HRS 05/31/16 Reported Metoprolol Succinate ( Xl ) (Metoprolol Succinate) 25 Mg Tab.er.24h 1 Tab PO DAILY 05/31/16 Reported Lasix (Furosemide) 40 Mg Tablet 1 Tab PO DAILY 05/31/16 Reported Travatan Z (Travoprost) 5 Ml Drops 1 Drop EACHEYE QHS 01/05/15 Reported Cyclobenzaprine Hcl 10 Mg Tablet 1 Tab PO PRN TID 01/05/15 Reported Allopurinol 300 Mg Tablet 1 Tab PO DAILY 01/05/[address], 1. Tiny left lung nodule Fleischner Society guidelines recommend an optional one-year follow-up. 2. Previous right thoracotomy. 3. No other pulmonary nodule or mass noted. 4. No adenopathy noted. 5. Mild scarring without confluent infiltrates. Impression . IMPRESSION: 1. Acute on chronic respiratory failure secondary to acute exacerbation of chronic obstructive pulmonary disease and acute bronchitis 2. Abnormal CT CHEST WITH SCARRING RLL, 2 MM LEFT LUNG NODULE 3. Acute exacerbation of chronic obstructive pulmonary disease. 4. Acute bronchitis. 5. Ex-smoker. 6. History of lung cancer, status post right upper lobectomy. 7. Acute kidney injury, chronic kidney disease. 8. Anemia. Plan . 1. Titrate FiO2 to keep O2 saturation 92%. 2. Bronchodilator. increase nebs q 4 hr, still wheezing, hold metoprolol 3. inhaled corticosteroid. 4. still has cough, wheezing, increase Solu-Medrol 60 mg IV every 8 hours. Monitor blood glucose. 5. Lovenox for DVT prophylaxis. 6. Protonix for stress ulcer prophylaxis. 7. changed to PO abx 8. reviewed, CT of the chest, tiny pulm nodule, fu ct in 1 year. 9. Nasal swab for influenza A and B, neg 10. legionella and strep pneumonia ag 11. fu c diff toxin The findings and recommendations were discussed with the patient. FLY BOSTON MD Jul 16, 2018 11:13
--- NOTE | 2018-07-16 13:16 | NUR ---
SW following. Discussed with RN, PT/OT has met with pt but has recommended three different dispositions. SW awaiting collaboration from PT/OT to determine next steps in pt discharge planning. RN notified. SW will continue to follow.
[2018-07-16 15:00] VITALS: BP 126/67
[2018-07-16 19:00] VITALS: BP 130/69
[2018-07-16] MEDS: POTASSIUM CL 20MEQ D5-0.45NACL 1,000 ML IV SCH (19:36)
[2018-07-16] MEDS: LATANOPROST 0.005% OPHTH SOLUTION 2.5ML BOTTLE. OU SCH (21:05)
[2018-07-16] MEDS: methylPREDNISolone SOD SUCC PF 125 MG/2 ML VIAL. IV SCH (21:06)
[2018-07-16 22:58] VITALS: BP 147/67
[2018-07-17 03:00] VITALS: BP 163/77
[2018-07-17 07:00] VITALS: BP 164/92
[2018-07-17] MEDS: IPRATRPIUM/ALBUTEROL 0.5/2.5MG 3 ML NEBU. NEB SCH ×4 (07:33→19:35)
[2018-07-17] MEDS: BUDESONIDE 0.5 MG/2 ML NEBU. NEB SCH ×2 (07:33→19:35)
[2018-07-17] MEDS: CEFDINIR 300 MG CAPSULE PO SCH ×2 (08:37→21:10)
[2018-07-17] MEDS: GABAPENTIN 100 MG CAPSULE. PO SCH ×2 (08:37→21:10)
[2018-07-17] MEDS: ALLOPURINOL 100 MG TABLET. PO SCH (08:37)
[2018-07-17] MEDS: LACTOBACILLUS RHAMNOSUS GG 1 CAPSULE. PO SCH ×2 (08:38→21:10)
[2018-07-17] MEDS: PANTOPRAZOLE 40 MG TABLET.DR. PO SCH (08:38)
[2018-07-17] MEDS: ENOXAPARIN 30 MG/0.3 ML SYRINGE. SQ SCH (08:38)
[2018-07-17] MEDS: ROFLUMILAST 500 MCG TABLET. PO SCH (08:39)
[2018-07-17] MEDS: POTASSIUM CL 20MEQ D5-0.45NACL 1,000 ML IV SCH ×2 (08:39→14:15)
[2018-07-17] MEDS: methylPREDNISolone SOD SUCC PF 125 MG/2 ML VIAL. IV SCH (08:39)
[2018-07-17 11:00] VITALS: BP 149/83
--- NOTE | 2018-07-17 11:01 | NUR ---
SW following. Discussed with RN, PT/OT recommending SNU. SW met with pt, pt would like a facility in [place] as she lives in [place], and daughter lives in [place]. SW listed facilities in [place], pt would like referral sent to [facility] in [place]. SW phoned and faxed referral. SW will continue to follow.
--- NOTE | 2018-07-17 11:12 | PN ---
DATE: 07/17/2018 LOCATION: She is in room 556. SUBJECTIVE: Vital signs are stable. She is afebrile. She is awake and alert. She did have a low-grade temperature this morning of 99.6. She does feel like she had a better night last night and can see possibly way out of this, this morning. OBJECTIVE: VITAL SIGNS: Stable. She is afebrile. O2 is at 2 liters per nasal cannula with good sats. CHEST: Reveals ongoing expiratory wheezing, but much better air movement this morning. HEART: Regular rate and rhythm. ABDOMEN: Benign. IMPRESSION: 1. Acute on chronic respiratory failure secondary to exacerbation of chronic obstructive pulmonary disease. 2. Acute bronchitis. 3. Acute kidney injury, resolving. 4. Anemia. PLAN: Continue present care. I would expect discharge as early as tomorrow if she continues the improvement that we have seen in the last 24 hours. LIANG WILDER MD DR: YAJAIRA/korin JOB#: [id number] / [id number]
--- NOTE | 2018-07-17 11:37 | PDOC ---
PULMONARY PROGRESS NOTES Subjective feels better, wheezing better Vitals Vital Signs Date Time Temp Pulse Resp B/P (MAP) Pulse Ox O2 Delivery O2 Flow Rate FiO2 07/17/18 11:05 Nasal Cannula 2.0 07/17/18 11:00 98.1 114 18 149/83 (105) 94 98.1 ROS: No Nausea, No Chest Pain General: Alert (nc at perrl ), No acute distress HEENT: Other Lungs: Wheezing (resolved) Cardiovascular: S1, S2 Abdomen: Soft, Non-tender Neuro Exam: Alert Extremities: No Edema Skin: Warm Labs Laboratory Tests Test 07/16/18 04:10 Sodium Level 144 mmol/L (136-145) Potassium Level 4.4 mmol/L (3.5-5.1) Chloride Level 109 mmol/L (98-107) Carbon Dioxide Level 23 mmol/L (21-32) Anion Gap 12 (6-14) Blood Urea Nitrogen 27 mg/dL (7-20) Creatinine 1.3 mg/dL (0.6-1.0) Estimated GFR (Cockcroft-Gault) 47.6 Glucose Level 118 mg/dL (70-99) Calcium Level 9.0 mg/dL (8.5-10.1) Medications Active Scripts Medications Dose Route/Sig Max Daily Dose Days Date Category Gabapentin (Gabapentin) 100 Mg Capsule 100 Mg PO TID 07/13/18 Reported Anoro Ellipta 62.5-25 Mcg Inh (Umeclidinium Brm/Vilanterol Tr) 1 Each Disk.w.dev 1 Each IH DAILY 07/13/18 Reported Celebrex (Celecoxib) 200 Mg Capsule 200 Mg PO BID 30 06/19/17 Reported Hydrocodone-Apap 7.5-325 (Hydrocodone Bit/Acetaminophen) 1 Each Tablet 1-2 Tab PO PRN Q6HRS PRN 06/16/17 Reported Daliresp (Roflumilast) 500 Mcg Tablet 500 Mcg PO DAILY 06/16/17 Reported Nitrostat (Nitroglycerin) 0.4 Mg Tab.subl 0.4 Mg SL PRN Q5MIN PRN 06/02/16 Rx Aspirin Ec (Aspirin) 81 Mg Tablet.dr 81 Mg PO DAILYWBKFT 06/02/16 Rx Duoneb 0.5-3(2.5) Mg/3 Ml (Albuterol/Ipratropium) 3 Ml Ampul.neb 3 Ml NEB QID 05/31/16 Reported Ventolin Hfa Inhaler (Albuterol Sulfate) 18 Gm Hfa.aer.ad 2 Puff INH PRN QID PRN 05/31/16 Reported Zofran (Ondansetron Hcl) 4 Mg Tablet 1 Tab PO Q6HRS 05/31/16 Reported Metoprolol Succinate ( Xl ) (Metoprolol Succinate) 25 Mg Tab.er.24h 1 Tab PO DAILY 05/31/16 Reported Lasix (Furosemide) 40 Mg Tablet 1 Tab PO DAILY 05/31/16 Reported Travatan Z (Travoprost) 5 Ml Drops 1 Drop EACHEYE QHS 01/05/15 Reported Cyclobenzaprine Hcl 10 Mg Tablet 1 Tab PO PRN TID 01/05/15 Reported Allopurinol 300 Mg Tablet 1 Tab PO DAILY 01/05/[address], 1. Tiny left lung nodule Fleischner Society guidelines recommend an optional one-year follow-up. 2. Previous right thoracotomy. 3. No other pulmonary nodule or mass noted. 4. No adenopathy noted. 5. Mild scarring without confluent infiltrates. Impression . IMPRESSION: 1. Acute on chronic respiratory failure secondary to acute exacerbation of chronic obstructive pulmonary disease and acute bronchitis 2. Abnormal CT CHEST WITH SCARRING RLL, 2 MM LEFT LUNG NODULE 3. Acute exacerbation of chronic obstructive pulmonary disease. 4. Acute bronchitis. 5. Ex-smoker. 6. History of lung cancer, status post right upper lobectomy. 7. Acute kidney injury, chronic kidney disease. 8. Anemia. Plan . 1. nasal canula to keep O2 saturation 92%. 2. Bronchodilator. wheezing resolved after holding metoprolol 3. inhaled corticosteroid. 4. start tapering Solu-Medrol. Monitor blood glucose. 5. Lovenox for DVT prophylaxis. 6. Protonix for stress ulcer prophylaxis. 7. PO abx 8. CT of the chest, tiny pulm nodule, fu ct in 1 year. 9. Nasal swab for influenza A and B, neg FLY BOSTON MD Jul 17, 2018 11:37
[2018-07-17 15:00] VITALS: BP 126/75
[2018-07-17 19:00] VITALS: BP 172/76
[2018-07-17] MEDS: LATANOPROST 0.005% OPHTH SOLUTION 2.5ML BOTTLE. OU SCH (21:10)
[2018-07-17] MEDS: methylPREDNISolone SOD SUCC PF 40 MG/ML VIAL. IV SCH (21:11)
[2018-07-17 23:00] VITALS: BP 144/74
[2018-07-18 03:00] VITALS: BP 149/78
[2018-07-18] MEDS: ACETAMINOPHEN 500 MG TABLET PO PRN (04:33)
[2018-07-18 07:00] VITALS: BP 180/100
[2018-07-18] MEDS: BUDESONIDE 0.5 MG/2 ML NEBU. NEB SCH (07:09)
[2018-07-18] MEDS: IPRATRPIUM/ALBUTEROL 0.5/2.5MG 3 ML NEBU. NEB SCH ×2 (07:09→10:52)
[2018-07-18] MEDS: PANTOPRAZOLE 40 MG TABLET.DR. PO SCH (08:07)
[2018-07-18] MEDS: ROFLUMILAST 500 MCG TABLET. PO SCH (08:07)
[2018-07-18] MEDS: CEFDINIR 300 MG CAPSULE PO SCH (08:07)
[2018-07-18] MEDS: LACTOBACILLUS RHAMNOSUS GG 1 CAPSULE. PO SCH (08:07)
[2018-07-18] MEDS: ALLOPURINOL 100 MG TABLET. PO SCH (08:07)
[2018-07-18] MEDS: GABAPENTIN 100 MG CAPSULE. PO SCH (08:07)
[2018-07-18] MEDS: methylPREDNISolone SOD SUCC PF 40 MG/ML VIAL. IV SCH (08:08)
[2018-07-18] MEDS: ENOXAPARIN 30 MG/0.3 ML SYRINGE. SQ SCH (08:09)
[2018-07-18] MEDS ORDERED: CEFD300C PO (08:48)
[2018-07-18] MEDS ORDERED: PRED20TA PO (08:48)
[2018-07-18] MEDS ORDERED: Pantoprazole PO (08:48)
--- NOTE | 2018-07-18 08:50 | SNU/HH DC ---
DISCHARGE ORDERS DISCHARGE INFORMATION: DISCHARGE DATE: Jul 18, 2018 FINAL DIAGNOSIS Problems Medical Problems: (1) CHF (congestive heart failure) Status: Acute (2) Shortness of breath Status: Acute CONDITION ON DISCHARGE: Stable CODE STATUS: Code Status: Full USP: SNF STAY <30 DAYS: Yes HOSPICE: HOSPICE: No HOSPICE EVAL & TREAT: No LTAC: ADMIT TO LTAC: No POST DISCHARGE ORDERS: ACTIVITY ORDERS: Activity as tolerated WEIGHT BEARING STATUS: Full weight bearing DIET AFTER DISCHARGE: Regular CHECKS AFTER DISCHARGE: CHECKS AFTER DISCHARGE: Check blood press - daily TREATMENT/EQUIPMENT ORDERS: ADAPTIVE EQUIPMENT NEEDED: None Physical Therapy For: Evalulation/Treatment Occupational Therapy For: Evaluation/Treatment DISCHARGE MEDICATIONS: Home Meds Active Scripts Prednisone (PREDNISONE) 20 Mg Tablet, 20 MG PO DAILY for exac copd for 14 Days, #14 TAB Prov:LIANG WILDER MD 07/18/18 [Pantoprazole] [address] Jacobson Conflict Check, 40 MG PO DAILYAC for dyspepsia for 30 Days, #30 Prov:LIANG WILDER MD 07/18/18 Cefdinir (CEFDINIR) 300 Mg Capsule, 300 MG PO BID for infection for 7 Days, #14 CAP Prov:LIANG WILDER MD 07/18/18 Nitroglycerin (NITROSTAT) 0.4 Mg Tab.subl, 0.4 MG SL PRN Q5MIN PRN for CHEST PAIN, #10 TAB 3 Refills Prov:LIANG WILDER MD 06/02/16 Aspirin (ASPIRIN EC) 81 Mg Tablet.dr, 81 MG PO DAILYWBKFT, #30 TAB 6 Refills Prov:LIANG WILDER MD 06/02/16 Reported Medications Gabapentin (GABAPENTIN ) 100 Mg Capsule, 100 MG PO TID for NEUROGENIC PAIN, CAP 07/13/18 Umeclidinium Brm/Vilanterol Tr (ANORO ELLIPTA 62.5-25 MCG INH) 1 Each Disk.w.dev , 1 EACH IH DAILY for COPD, INH 07/13/18 Celecoxib (CELEBREX) 200 Mg Capsule, 200 MG PO BID for 30 Days, CAP 0 Refills 06/19/17 Hydrocodone Bit/Acetaminophen (HYDROCODONE-APAP 7.5-325 ) 1 Each Tablet, 1-2 TAB PO PRN Q6HRS PRN for PAIN 06/16/17 Roflumilast (DALIRESP) 500 Mcg Tablet, 500 MCG PO DAILY for anti-inflammatory, TAB 06/16/17 Ipratropium/Albuterol Sulfate (DUONEB 0.5-3(2.5) MG/3 ML) 3 Ml Ampul.neb, 3 ML NEB QID, EACH 05/31/16 Albuterol Sulfate (VENTOLIN HFA INHALER) 18 Gm Hfa.aer.ad, 2 PUFF INH PRN QID PRN for CONGESTION, INHALER 0 Refills 05/31/16 Ondansetron Hcl (ZOFRAN) 4 Mg Tablet, 1 TAB PO Q6HRS, #20 TAB 05/31/16 Furosemide (LASIX) 40 Mg Tablet, 1 TAB PO DAILY, #90 TAB 1 Refill 05/31/16 Travoprost (TRAVATAN Z) 5 Ml Drops, 1 DROP EACHEYE QHS, #2.5 ML 2 Refills 01/05/15 Cyclobenzaprine Hcl (CYCLOBENZAPRINE HCL) 10 Mg Tablet, 1 TAB PO PRN TID, #90 TAB 01/05/15 Allopurinol (ALLOPURINOL) 300 Mg Tablet, 1 TAB PO DAILY, #30 TAB 5 Refills 01/05/15 Discontinued Reported Medications Metoprolol Succinate (METOPROLOL SUCCINATE ( XL )) 25 Mg Tab.er.24h, 1 TAB PO DAILY, #30 TAB 5 Refills 05/31/16 LIANG WILDER MD Jul 18, 2018 08:50
--- NOTE | 2018-07-18 08:51 | PDOC ---
GENERAL General: see discharge summary. VITAL SIGNS Vital Signs: Vital Signs Date Time Temp Pulse Resp B/P (MAP) Pulse Ox O2 Delivery O2 Flow Rate FiO2 07/18/18 07:09 100 Nasal Cannula 2.0 07/18/18 07:00 97.7 110 16 180/100 (126) 97.7 I & O I & O Intake and Output 07/18/18 06:59 Intake Total 1987 ml Balance 1987 ml Intake Oral 620 ml IV Total 1367 ml # Voids 5 ALLERGIES Allergies: Allergies Coded Allergies Type Severity Reaction Last Updated Verified tomato Allergy Severe 09/08/16 Yes strawberry Allergy Intermediate 09/07/16 Yes MEDS Medications: Current Medications Medications (Trade) Dose Ordered Sig/Fortunato Start Time Stop Time Status Last Admin Dose Admin Acetaminophen (Tylenol) 500 mg PRN Q6HRS PRN 07/14/18 08:30 07/18/18 04:33 500 MG Acetaminophen/ Hydrocodone Bitart (Lortab 7.5/325) 1 tab PRN Q6HRS PRN 07/13/18 11:30 07/14/18 02:11 1 TAB Albuterol/ Ipratropium (Duoneb) 3 ml QID 07/13/18 13:00 07/13/18 13:00 DC Allopurinol (Zyloprim) 100 mg DAILY 07/13/18 12:00 07/18/18 08:07 100 MG Aspirin (Ecotrin) 81 mg DAILYWBKFT 07/14/18 08:00 UNV Azithromycin (Zithromax) 250 mg DAILY 07/15/18 09:00 07/15/18 15:10 DC 07/15/18 07:57 250 MG Budesonide (Pulmicort) 0.5 mg RTBID 07/13/18 08:30 07/18/18 07:09 0.5 MG Cefdinir (Omnicef) 300 mg BID 07/15/18 21:00 07/18/18 08:07 300 MG Ceftriaxone Sodium (Rocephin) 1 gm Q24H 07/13/18 08:30 07/15/18 15:10 DC 07/15/18 07:55 1 GM Dexamethasone Sodium Phosphate (Decadron) 10 mg 1X ONCE 07/12/18 18:30 07/12/18 18:32 DC 07/12/18 19:46 10 MG Enoxaparin Sodium (Lovenox 30mg Syringe) 30 mg Q24H 07/13/18 08:30 07/18/18 08:09 30 MG Gabapentin (Neurontin) 100 mg BID 07/13/18 21:00 07/18/18 08:07 100 MG Lactobacillus Rhamnosus (Culturelle) 1 cap BID 07/13/18 21:00 07/18/18 08:07 1 CAP Latanoprost (Xalatan) 1 drop QHS 07/13/18 21:00 07/17/18 21:10 1 DROP Methylprednisolone Sodium Succinate (SOLU-Medrol 40MG VIAL) 30 mg BID 07/17/18 21:00 07/18/18 08:08 30 MG Methylprednisolone Sodium Succinate (SOLU-Medrol 125MG VIAL) 60 mg BID 07/16/18 21:00 07/17/18 11:38 DC 07/17/18 08:39 60 MG Metoprolol Succinate (Toprol Xl) 25 mg DAILY 07/13/18 12:00 07/16/18 18:53 DC 07/16/18 08:56 25 MG Ondansetron HCl (Zofran Odt) 4 mg PRN Q6HRS PRN 07/13/18 11:45 Pantoprazole Sodium (Protonix) 40 mg DAILYAC 07/13/18 09:00 07/18/18 08:07 40 MG Potassium Chloride/Dextrose/ Sod Cl 1,000 ml @ 50 mls/hr Q20H 07/13/18 12:00 07/17/18 08:39 50 MLS/HR Roflumilast (Daliresp) 500 mcg DAILY 07/13/18 12:00 07/18/18 08:07 500 MCG LIANG WILDER MD Jul 18, 2018 08:51
[2018-07-18] MEDS: POTASSIUM CL 20MEQ D5-0.45NACL 1,000 ML IV SCH (10:15)
--- NOTE | 2018-07-18 10:25 | PDOC ---
PULMONARY PROGRESS NOTES Subjective feels better, wheezing better Vitals Vital Signs Date Time Temp Pulse Resp B/P (MAP) Pulse Ox O2 Delivery O2 Flow Rate FiO2 07/18/18 08:00 Nasal Cannula 2.0 07/18/18 07:09 100 07/18/18 07:00 97.7 110 16 180/100 (126) 97.7 ROS: No Nausea, No Chest Pain General: Alert (nc at perrl ), No acute distress HEENT: Other Lungs: Wheezing (resolved) Cardiovascular: S1, S2 Abdomen: Soft, Non-tender Neuro Exam: Alert Extremities: No Edema Skin: Warm Medications Active Scripts Medications Dose Route/Sig Max Daily Dose Days Date Category Gabapentin (Gabapentin) 100 Mg Capsule 100 Mg PO TID 07/13/18 Reported Anoro Ellipta 62.5-25 Mcg Inh (Umeclidinium Brm/Vilanterol Tr) 1 Each Disk.w.dev 1 Each IH DAILY 07/13/18 Reported Celebrex (Celecoxib) 200 Mg Capsule 200 Mg PO BID 30 06/19/17 Reported Hydrocodone-Apap 7.5-325 (Hydrocodone Bit/Acetaminophen) 1 Each Tablet 1-2 Tab PO PRN Q6HRS PRN 06/16/17 Reported Daliresp (Roflumilast) 500 Mcg Tablet 500 Mcg PO DAILY 06/16/17 Reported Nitrostat (Nitroglycerin) 0.4 Mg Tab.subl 0.4 Mg SL PRN Q5MIN PRN 06/02/16 Rx Aspirin Ec (Aspirin) 81 Mg Tablet.dr 81 Mg PO DAILYWBKFT 06/02/16 Rx Duoneb 0.5-3(2.5) Mg/3 Ml (Albuterol/Ipratropium) 3 Ml Ampul.neb 3 Ml NEB QID 05/31/16 Reported Ventolin Hfa Inhaler (Albuterol Sulfate) 18 Gm Hfa.aer.ad 2 Puff INH PRN QID PRN 05/31/16 Reported Zofran (Ondansetron Hcl) 4 Mg Tablet 1 Tab PO Q6HRS 05/31/16 Reported Metoprolol Succinate ( Xl ) (Metoprolol Succinate) 25 Mg Tab.er.24h 1 Tab PO DAILY 05/31/16 Reported Lasix (Furosemide) 40 Mg Tablet 1 Tab PO DAILY 05/31/16 Reported Travatan Z (Travoprost) 5 Ml Drops 1 Drop EACHEYE QHS 01/05/15 Reported Cyclobenzaprine Hcl 10 Mg Tablet 1 Tab PO PRN TID 01/05/15 Reported Allopurinol 300 Mg Tablet 1 Tab PO DAILY 01/05/[address], 1. Tiny left lung nodule Fleischner Society guidelines recommend an optional one-year follow-up. 2. Previous right thoracotomy. 3. No other pulmonary nodule or mass noted. 4. No adenopathy noted. 5. Mild scarring without confluent infiltrates. Impression . IMPRESSION: 1. Acute on chronic respiratory failure secondary to acute exacerbation of chronic obstructive pulmonary disease and acute bronchitis 2. Abnormal CT CHEST WITH SCARRING RLL, 2 MM LEFT LUNG NODULE 3. Acute exacerbation of chronic obstructive pulmonary disease. 4. Acute bronchitis. 5. Ex-smoker. 6. History of lung cancer, status post right upper lobectomy. 7. Acute kidney injury, chronic kidney disease. 8. Anemia. Plan . 1. nasal canula to keep O2 saturation 92%. 2. Bronchodilator. wheezing resolved after holding metoprolol 3. inhaled corticosteroid. 4. start tapering Solu-Medrol. Monitor blood glucose. 5. Lovenox for DVT prophylaxis. 6. Protonix for stress ulcer prophylaxis. 7. PO abx 8. CT of the chest, tiny pulm nodule, fu ct in 1 year. 9. Nasal swab for influenza A and B, neg ok with dc to rehab FLY BOSTON MD Jul 18, 2018 10:25
[2018-07-18] MEDS ORDERED: BYSTOLIC5 MG PO ×2 (10:53→10:54)
[2018-07-18 11:00] VITALS: BP 153/90
--- NOTE | 2018-07-18 11:57 | NUR ---
SW following. Discussed with RN, pt has been accepted at [facility], pt will be transported between 1430 and 1500. RN notified.
--- NOTE | 2018-07-18 14:10 | NUR ---
pt discharged via [facility] accompanied with delivery driver/customer service from transport company. pt alert and stable upon discharge, IV discontinued with no complications. report called to HCR in [place] to Francie HAWKINS. pt educated about discharge instructions, new medications prescribed, medications to continue, HCR notified of Bystolic 5mg PO daily medication order from Dr. Brenner that was added on after discharge Rx was finalized.
--- NOTE | 2018-07-19 00:57 | DS ---
DATE OF DISCHARGE: 07/18/2018 PRIMARY DIAGNOSIS: Acute respiratory failure due to exacerbation of chronic obstructive pulmonary disease. ADDITIONAL DIAGNOSES: 1. Bronchitis. 2. Acute renal failure, resolving during stay. 3. History of carcinoma of the lung. 4. Anemia with discharge hemoglobin of 7.9, normochromic normocytic. CHIEF COMPLAINT AND HISTORY OF PRESENT ILLNESS: This 83-year-old black female is well known to me from followup in the office. The patient was admitted through the Emergency Room with shortness of breath, cough and felt to have an exacerbation of COPD with acute respiratory failure. She was also noted to be in acute renal failure with admission BUN and creatinine of 48 and 2.1. SUMMARY OF STAY: The patient was admitted, treated with IV fluids, IV steroids, pulmonary toilet, IV antibiotics with slow improvement to where she felt much better in the last 24 hours, becoming almost ____. She was followed through the stay by Pulmonary. Blood cultures were negative throughout the stay. Kidney failure, resolved with her BUN and creatinine decreasing down to 27 and 1.3 a couple of days prior to discharge. She was felt due to weakness to need some fpc at the time of discharge and will be transferred to fpc. DISPOSITION: At the time of discharge, the patient is discharged to fpc. Please see orders regarding diet, medication, activity, etc. We will follow up with her after discharge. LIANG WILDER MD DR: YAJAIRA/korin JOB#: [id number] / [id number]
[2018-07-19] MEDS ORDERED: CEFDINIR 300 MG CAPSULE PO SCH (09:00)
== END 2018-07-18 14:29 | DRG 871 ==
LOC: ER 17:09 → 5 NORTH 21:13 → 5 SOUTH 07-14 21:22
PROVIDERS: ADMIT Family Medicine; ATTEND Family Medicine
DX: A41.9 Sepsis, unspecified organism (principal); J96.00 Acute respiratory failure, unspecified whether with hypoxia or hypercapnia; N17.9 Acute kidney failure, unspecified; J44.1 Chronic obstructive pulmonary disease with (acute) exacerbation; I13.0 Hypertensive heart and chronic kidney disease with heart failure and stage 1 through stage 4 chronic kidney disease, or unspecified chronic kidney disease; J44.0 Chronic obstructive pulmonary disease with (acute) lower respiratory infection; I50.9 Heart failure, unspecified; N18.9 Chronic kidney disease, unspecified; J20.9 Acute bronchitis, unspecified; Z96.649 Presence of unspecified artificial hip joint; D64.9 Anemia, unspecified; E86.0 Dehydration; Z99.81 Dependence on supplemental oxygen; Z90.710 Acquired absence of both cervix and uterus; Z90.49 Acquired absence of other specified parts of digestive tract; Z87.891 Personal history of nicotine dependence; Z85.118 Personal history of other malignant neoplasm of bronchus and lung; Z82.49 Family history of ischemic heart disease and other diseases of the circulatory system; Z90.2 Acquired absence of lung [part of]
CPT/HCPCS: 36415; 71046; 71250; 80048; 80053; 81001; 83605; 83880; 84484; 85025; 85027; 87040; 87449; 87493; 87804; 93005; 94640; 94760; 96374; J0696; J1100; J1650; J2920; J2930; J7620; J7626; Q0144; 97110; 97530; 97535; 99285-25

== ENCOUNTER 2018-08-08 11:46 | Inpatient (IN) | payer MEDICARE ==
[~2018-08-08] VITALS: Ht 154.9 cm; Wt 68.0 kg
[~2018-08-08 11:46] MED LIST changes: +BYSTOLIC5 MG PO; +CEFD300C PO; +GABA-585 PO; +PRED20TA PO; +Pantoprazole PO; +UMEC1DIS IH
[2018-08-08] MEDS ORDERED: fentaNYL PF VIAL 100 MCG/2 ML VIAL IV ONE (12:30)
[2018-08-08 12:51] LABS: BASO % 1 % (0-3); EOS # 0.1 x10^3/uL (0.0-0.7); EOS % 1 % (0-3); HEMATOCRIT 25.1 % (36.0-47.0); HEMOGLOBIN 8.2 g/dL (12.0-15.5); LYMPH # 0.7 x10^3/uL (1.0-4.8); LYMPH % 12 % (24-48); MEAN CORPUSCULAR HEMOGLOBIN 31 pg (25-35); MEAN CORPUSCULAR HGB CONC 33 g/dL (31-37); MEAN CORPUSCULAR VOLUME 96 fL (79-100); MONO # 0.5 x10^3/uL (0.0-1.1); MONO % 10 % (0-9); NEUT # 4.5 x10^3uL (1.8-7.7); NEUT % 77 % (31-73); PLATELET COUNT 229 x10^3/uL (140-400); RED CELL DISTRIBUTION WIDTH 17.6 % (11.5-14.5); WHITE BLOOD COUNT 5.8 x10^3/uL (4.0-11.0)
[2018-08-08 13:06] LABS: CALCIUM 9.3 mg/dL (8.5-10.1); CREATININE 2.2 mg/dL (0.6-1.0); GFR 25.9; POTASSIUM 4.9 mmol/L (3.5-5.1)
--- NOTE | 2018-08-08 13:10 | RAD ---
SCAPULA LEFT, THORACIC SPINE 3V, CHEST PA LATERAL Clinical indications: BACK PAIN shortness of breath. TWO-VIEW CHEST X-RAY COMPARISON: July 12, 2018. Findings: Old posttraumatic changes or old post surgical changes of the right hemithorax are seen. 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 No acute lung infiltrate or pleural effusion or pulmonary edema or lung mass or pneumothorax is seen. Mild cardiomegaly is seen which is stable. The pulmonary vasculature, mediastinum and both kenton are unremarkable. Scoliosis is evident. There is a compression deformity of an upper lumbar vertebral body which is unchanged. Impression: No new radiographic abnormality is seen. 2 VIEW LEFT SCAPULAR STUDY FINDINGS: no acute fracture or dislocation or lytic process is seen. There is severe degenerative joint space narrowing and moderate degenerative spurring of the left glenohumeral joint. There is loss of the acromial humeral space consistent with a chronic rotator cuff tear. There is moderate primary degenerative osteoarthritis and spurring of the AC joint. Impression: No acute fracture. See discussion above. THREE-VIEW THORACIC SPINE SERIES: Scoliosis is seen. No compression fracture or discitis or lytic process is seen. IMPRESSION: No acute compression fracture. Electronically signed by: Jeremy Weller MD (08/08/2018 1:08 PM) [facility]
[2018-08-08 13:12] LABS: ALBUMIN 2.7 g/dL (3.4-5.0); ALBUMIN/GLOBULIN RATIO 0.7 (1.0-1.7); MAGNESIUM 2.3 mg/dL (1.8-2.4); TOTAL BILIRUBIN 0.3 mg/dL (0.2-1.0); TOTAL PROTEIN 6.6 g/dL (6.4-8.2)
[2018-08-08 13:21] LABS: % BANDS 15 % (0-9); % EOS 1 % (0-5); % LYMPHS 9 % (24-48); % METAS 1 % (0-0); % MONOS 7 % (0-10); % SEGS 67 % (35-66); ANISOCYTOSIS SLIGHT; PLT ESTIMATE ADEQUATE (ADEQUATE)
[2018-08-08 13:56] LABS: BILIRUBIN,URINE NEGATIVE (NEG); CLARITY,URINE CLEAR; COLOR,URINE YELLOW; NITRITE,URINE NEGATIVE (NEG); PROTEIN,URINE NEGATIVE (NEG-TRACE); UROBILINOGEN,URINE 0.2 mg/dL (0.2 mg/dL)
[2018-08-08 14:05] LABS: BACTERIA,URINE 0 /HPF (0-FEW); RBC,URINE OCC /HPF (0-2); SQUAMOUS EPITHELIAL CELL,UR MOD /LPF; WBC,URINE 0 /HPF (0-4)
--- NOTE | 2018-08-08 14:15 | PHYS DOC ---
Past Medical History Past Medical History: Anxiety, Cancer, CHF, COPD, Diabetes-Type II, GERD, Glaucoma, Heart Disease, Hypertension, Renal Disease, Renal Failure, Other Additional Past Medical Histor: tachycardia syndrome,gout,LUNG CA Past Surgical History: Appendectomy, Cholecystectomy, Hip Replacement, Hysterectomy, Other Additional Past Surgical Histo: bunionectomy, lower back surgery, lung resection, carpal tunnel, cataracts Alcohol Use: None Drug Use: None Adult General Chief Complaint Chief Complaint: ABNORMAL LABS [facility] HPI Patient is a 83 year old female who brought in by EMS because of abnormal labs. alf reported patient had elevation of BUN/creatinine and sent here for evaluation of renal insufficiency. According to custodial reports patient has chronic renal insufficiency and anemia. Patient rates she had chronic shoulder blade pain that became worse for the last 3 days after she had an accidental fall from her chair head injury or loss of consciousness. Patient complaining of increasing her shoulder blade pain and rated her pain 10 over 10 that did not get better with Tylenol given at custodial. Patient feeling of chronic shortness of breath and weakness without new changes. Patient states the Lasix dose was increased to 80 mg recently but she is not able to urinate well. Review of Systems Review of Systems Constitutional: Denies fever or chills, reports generalized weakness [] Eyes: Denies change in visual acuity, redness, or eye pain [] HENT: Denies nasal congestion or sore throat [] Respiratory: Reports chronic cough and shortness of breath Cardiovascular: No additional information not addressed in HPI [] GI: Denies abdominal pain, nausea, vomiting, bloody stools or diarrhea [] : Denies dysuria or hematuria [] Musculoskeletal: Reports back pain and joint pain Integument: Denies rash or skin lesions [] Neurologic: Denies headache, focal weakness or sensory changes [] Endocrine: Denies polyuria or polydipsia [] All other systems were reviewed and found to be within normal limits, except as documented in this note. Current Medications Current Medications Current Medications Medications (Trade) Dose Ordered Sig/Fortunato Start Time Stop Time Status Last Admin Dose Admin Fentanyl Citrate (Fentanyl 2ml Vial) 50 mcg 1X ONCE 08/08/18 12:30 08/08/18 12:31 DC 08/08/18 13:08 50 MCG Allergies Allergies Allergies Coded Allergies Type Severity Reaction Last Updated Verified tomato Allergy Severe 09/08/16 Yes strawberry Allergy Intermediate 09/07/16 Yes Physical Exam Physical Exam Constitutional: Well developed, well nourished, mild distress, non-toxic appearance. [] HENT: Normocephalic, atraumatic, bilateral external ears normal, oropharynx moist, no oral exudates, nose normal. [] Eyes: PERRLA, EOMI, conjunctiva normal, no discharge. [] Neck: Normal range of motion, no tenderness, supple, no stridor. [] Cardiovascular:Heart rate regular rhythm, no murmur [] Lungs & Thorax: Decrease of air movement bilaterally, mild rhonchi . Abdomen: Bowel sounds normal, soft, no tenderness, no masses, no pulsatile masses. [] Skin: Warm, dry, no erythema, no rash. [] Back: No midline tenderness, no deformity, left upper thoracic muscle spasm and tenderness, no CVA tenderness. [] Extremities: No tenderness, no cyanosis, no clubbing, ROM intact, no edema. [] Neurologic: Alert and oriented X 3, normal motor function, normal sensory function, no focal deficits noted. [] Psychologic: Affect normal, judgement normal, mood normal. [] Current Patient Data Vital Signs Vital Signs Date Time Temp Pulse Resp B/P (MAP) Pulse Ox O2 Delivery O2 Flow Rate FiO2 08/08/18 13:38 17 98 Room Air 08/08/18 11:46 97.7 108 138/65 (89) 97.7 Lab Values Laboratory Tests Test 08/08/18 12:34 08/08/18 13:49 White Blood Count 5.8 x10^3/uL (4.0-11.0) Red Blood Count 2.60 x10^6/uL (3.50-5.40) L Hemoglobin 8.2 g/dL (12.0-15.5) L Hematocrit 25.1 % (36.0-47.0) L Mean Corpuscular Volume 96 fL (79-100) Mean Corpuscular Hemoglobin 31 pg (25-35) Mean Corpuscular Hemoglobin Concent 33 g/dL (31-37) Red Cell Distribution Width 17.6 % (11.5-14.5) H Platelet Count 229 x10^3/uL (140-400) Neutrophils (%) (Auto) 77 % (31-73) H Lymphocytes (%) (Auto) 12 % (24-48) L Monocytes (%) (Auto) 10 % (0-9) H Eosinophils (%) (Auto) 1 % (0-3) Basophils (%) (Auto) 1 % (0-3) Neutrophils # (Auto) 4.5 x10^3uL (1.8-7.7) Lymphocytes # (Auto) 0.7 x10^3/uL (1.0-4.8) L Monocytes # (Auto) 0.5 x10^3/uL (0.0-1.1) Eosinophils # (Auto) 0.1 x10^3/uL (0.0-0.7) Basophils # (Auto) 0.0 x10^3/uL (0.0-0.2) Segmented Neutrophils % 67 % (35-66) H Band Neutrophils % 15 % (0-9) H Lymphocytes % 9 % (24-48) L Monocytes % 7 % (0-10) Eosinophils % 1 % (0-5) Metamyelocytes % 1 % (0-0) H Platelet Estimate Adequate (ADEQUATE) Anisocytosis Slight Sodium Level 134 mmol/L (136-145) L Potassium Level 4.9 mmol/L (3.5-5.1) Chloride Level 98 mmol/L (98-107) Carbon Dioxide Level 28 mmol/L (21-32) Anion Gap 8 (6-14) Blood Urea Nitrogen 44 mg/dL (7-20) H Creatinine 2.2 mg/dL (0.6-1.0) H Estimated GFR (Cockcroft-Gault) 25.9 BUN/Creatinine Ratio 20 (6-20) Glucose Level 90 mg/dL (70-99) Lactic Acid Level 2.0 mmol/L (0.4-2.0) Calcium Level 9.3 mg/dL (8.5-10.1) Magnesium Level 2.3 mg/dL (1.8-2.4) Total Bilirubin 0.3 mg/dL (0.2-1.0) Aspartate Amino Transferase (AST) 30 U/L (15-37) Alanine Aminotransferase (ALT) 21 U/L (14-59) Alkaline Phosphatase 139 U/L (46-116) H Creatine Kinase 111 U/L (26-192) Troponin I Quantitative < 0.017 ng/mL (0.000-0.055) ZE-Aqj-[id number]-Type Natriuretic Peptide 607 pg/mL (0-449) H Total Protein 6.6 g/dL (6.4-8.2) Albumin 2.7 g/dL (3.4-5.0) L Albumin/Globulin Ratio 0.7 (1.0-1.7) L Urine Collection Type U cath Urine Color Yellow Urine Clarity Clear Urine pH 6.0 Urine Specific Sanders 1.010 Urine Protein Negative mg/dL (NEG-TRACE) Urine Glucose (UA) Negative mg/dL (NEG) Urine Ketones (Stick) Negative mg/dL (NEG) Urine Blood Negative (NEG) Urine Nitrite Negative (NEG) Urine Bilirubin Negative (NEG) Urine Urobilinogen Dipstick 0.2 mg/dL (0.2 mg/dL) Urine Leukocyte Esterase Negative (NEG) Urine RBC Occ /HPF (0-2) Urine WBC 0 /HPF (0-4) Urine Squamous Epithelial Cells Mod /LPF Urine Bacteria 0 /HPF (0-FEW) Laboratory Tests 08/08/18 12:34 Laboratory Tests 08/08/18 12:34 EKG EKG EKG interpreted by me. EKG at 1228 showed normal sinus rhythm at rate of 94, left cole axis, low voltage QRS, no acute ST and T-wave abnormalities. Radiology/Procedures Radiology/Procedures [facility] [address] [place] [address] IMAGING REPORT Signed PATIENT: VITA BOWSER ACCOUNT: [id number] : 1935 LOCATION: ER AGE: 83 SEX: F EXAM STATUS: REG ER ORD. PHYSICIAN: TERRI IYER MD REASON: shortness of breath and back pain PROCEDURE: CHEST PA & LATERAL SCAPULA LEFT, THORACIC SPINE 3V, CHEST PA LATERAL Clinical indications: BACK PAIN shortness of breath. TWO-VIEW CHEST X-RAY COMPARISON: July 12, 2018. Findings: Old posttraumatic changes or old post surgical changes of the right hemithorax are seen. 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 No acute lung infiltrate or pleural effusion or pulmonary edema or lung mass or pneumothorax is seen. Mild cardiomegaly is seen which is stable. The pulmonary vasculature, mediastinum and both kenton are unremarkable. Scoliosis is evident. There is a compression deformity of an upper lumbar vertebral body which is unchanged. Impression: No new radiographic abnormality is seen. 2 VIEW LEFT SCAPULAR STUDY FINDINGS: no acute fracture or dislocation or lytic process is seen. There is severe degenerative joint space narrowing and moderate degenerative spurring of the left glenohumeral joint. There is loss of the acromial humeral space consistent with a chronic rotator cuff tear. There is moderate primary degenerative osteoarthritis and spurring of the AC joint. Impression: No acute fracture. See discussion above. THREE-VIEW THORACIC SPINE SERIES: Scoliosis is seen. No compression fracture or discitis or lytic process is seen. IMPRESSION: No acute compression fracture. Electronically signed by: Bill Weller MD (08/08/2018 1:08 PM) [place] [id number] DICTATED and SIGNED BY: BILL WELLER MD DATE: 08/08/18 5117 Course & Med Decision Making Course & Med Decision Making Pertinent Labs and Imaging studies reviewed. (See chart for details) Evaluation of patient in ER showed 83-year-old male patient resident of custodial sent because of abnormal renal function tests with history of chronic renal insufficiency. Patient complaining of pain in her upper back after a fall 2 days ago. Patient treated with fentanyl and felt better. She did not have new fracture. Labs showed stable BUN/creatinine and anemia. Patient requiring admission for further evaluation and treatment. Discussed with Dr. Brenner who is in agreement with admission. Discussed findings and plan with patient and family, who acknowledge understanding and agreement. Dragon Disclaimer Dragon Disclaimer This electronic medical record was generated, in whole or in part, using a voice recognition dictation system. Departure Departure Impression: Primary Impression: Generalized weakness Additional Impressions: Chronic renal insufficiency Anemia CHF (congestive heart failure) Back pain Disposition: 09 ADMITTED INPATIENT (at 1408) Admitting Physician: Liang Brenner (accepted admission at 1408) Condition: IMPROVED Referrals: LIANG BRENNER MD (PCP) Problem Qualifiers Additional Impressions: Chronic renal insufficiency Chronic kidney disease stage: unspecified stage Qualified Codes: N18.9 - Chronic kidney disease, unspecified Anemia Anemia type: unspecified type Qualified Codes: D64.9 - Anemia, unspecified CHF (congestive heart failure) Heart failure type: unspecified Heart failure chronicity: unspecified Qualified Codes: I50.9 - Heart failure, unspecified Back pain Back pain location: thoracic back pain Chronicity: unspecified Back pain laterality: left Qualified Codes: M54.6 - Pain in thoracic spine TERRI IYER MD Aug 08, 2018 14:15
--- NOTE | 2018-08-08 14:37 | EKG ---
[facility] [address] [place] [address] Test Date: 2018-08-08 Test Time: 12:29:26 Pat Name: VITA BOWSER Department: Room: Gender: F [employer]: : 1935 Requested By: TERRI IYER Order Number: [id number] Reading MD: Shubham Stratton MD Measurements Intervals [place] Rate: 94 P: 57 UT: 142 QRS: -26 QRSD: 72 T: 43 QT: 350 QTc: 443 Interpretive Statements SINUS RHYTHM NON-SPECIFIC ST/T CHANGES Electronically Signed On 08-19-2018 10:23:28 CDT by Shubham Stratton MD
[2018-08-08] MEDS ORDERED: BENZ-8 PO ×2 (16:41)
[2018-08-08] MEDS ORDERED: ACET325T9 PO (16:41)
[2018-08-08] MEDS ORDERED: GUAI600T47 PO (16:41)
[2018-08-08] MEDS ORDERED: SODI650T PO (16:41)
[2018-08-08] MEDS ORDERED: METO-239 PO (16:41)
[2018-08-08] MEDS ORDERED: POTA20TA82 PO (16:41)
[2018-08-08] MEDS ORDERED: LACT1CAP6 PO (16:41)
--- NOTE | 2018-08-08 17:58 | NUR ---
New admit from ED this shift, patient is currently at the [facility] for rehab. MD Jordin paged to notify patients arrival, no call back at this time.
[2018-08-08 19:00] VITALS: BP 100/41
[2018-08-08] MEDS: HYDROcodone/APAP 5/325MG 1 TAB TABLET PO PRN (22:02)
[2018-08-08 23:00] VITALS: BP 127/60
[2018-08-09 03:00] VITALS: BP 100/50
[2018-08-09] MEDS: HYDROcodone/APAP 5/325MG 1 TAB TABLET PO PRN ×3 (04:54→22:14)
[2018-08-09 07:00] VITALS: BP 109/51
[2018-08-09] MEDS: predniSONE 20 MG TABLET PO SCH (09:22)
[2018-08-09] MEDS ORDERED: methylPREDNISolone ACETATE 40 MG/ML VIAL. IM ONE (10:30)
[2018-08-09] MEDS ORDERED: BUPIVACAINE MPF 0.25% 10 ML VIAL. IJ ONE (10:30)
[2018-08-09] MEDS ORDERED: tiZANidine 4 MG TABLET. PO PRN (10:30)
[2018-08-09 11:00] VITALS: BP 109/53
--- NOTE | 2018-08-09 13:37 | RAD ---
Examination: Frontal view of the bilateral knees HISTORY: History of degenerative changes. COMPARISON: None available FINDINGS: Severe joint space loss identified in the medial, lateral compartment femoral compartments of the bilateral knees most in the bilateral lateral compartments with large osteophyte formation. 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 Electronically signed by: Ghanshyam Vega MD (08/09/2018 1:34 PM) [id number]
[2018-08-09 15:00] VITALS: BP 94/72
[2018-08-09] MEDS ORDERED: NITROGLYCERIN SUBLINGUAL 0.4 MG BOTTLE OF 25. SL PRN (17:15)
[2018-08-09] MEDS: IPRATRPIUM/ALBUTEROL 0.5/2.5MG 3 ML NEBU. NEB SCH ×2 (17:30→19:50)
[2018-08-09] MEDS: IV 1/2 NORMAL SALINE 1,000 ML IV SCH (17:52)
--- NOTE | 2018-08-09 18:40 | HP ---
ADMIT DATE: 08/08/2018 CHIEF COMPLAINT AND HISTORY OF PRESENT ILLNESS: This 83-year-old black female is well known to me from followup in the office. The patient left the hospital back in around 07/17/2018, which she had come in with acute renal failure, weakness with resolution of most of her symptoms except for the weakness by the time of discharge. She had also had acute respiratory failure due to exacerbation of COPD. BUN and creatinine were elevated at 48 and 2.1 on admission. They were down to 27 and 1.3 by discharge. She presented back to the Emergency Room on the day of this admission with a fall in the last few days on to her left side, had a good recap. She had had right-sided shoulder blades/anterior chest pain starting prior to this. It is worse with movement, worse with breath, does hurt in her right arm with it also. She was weak once again, had the recent fall, had once again acute renal failure with her BUN up in the 40s, creatinine at 2.2 and admitted for treatment of the same. PAST MEDICAL HISTORY: Remarkable for anxiety, prior lung cancer, COPD, diabetes, congestive heart failure, GERD, glaucoma, heart disease, hypertension, the recent renal failure, gout. PAST SURGICAL HISTORY: Remarkable for appendectomy, cholecystectomy, hip replacement, hysterectomy, bunionectomy, low back surgery, lung resection, carpal tunnel, cataract surgery. MEDICATIONS: Brought with the patient, listed on the computer and have been addressed. ALLERGIES: SHE IS ALLERGIC TO STRAWBERRIES AND TOMATOES. SOCIAL HISTORY: She is a reformed smoker, nondrinker, does not use drugs. Single, lives at home alone. FAMILY HISTORY: Noncontributory. REVIEW OF SYSTEMS: As mentioned above. PHYSICAL EXAMINATION: GENERAL: She is well-developed, well-nourished female, in no acute distress at rest. VITAL SIGNS: Stable. She is afebrile. HEAD, EYES, EARS, NOSE AND THROAT: Remarkable for glasses. NECK: Supple without adenopathy or thyromegaly. CHEST: Reveals decreased breath sounds, but clear. HEART: Regular rate and rhythm without S3, S4, or murmur. ABDOMEN: Soft, nontender, without hepatosplenomegaly or masses. EXTREMITIES: Without cyanosis, clubbing or edema. NEUROLOGIC: She is intact. She is tender along her parascapular area medially. IMPRESSION: Pleuritic chest pain of uncertain etiology, recent fall, acute renal failure, generalized weakness. PLAN: The patient has been admitted. Rehab will be asked to see the patient in consultation. I am going to start some IV fluids, ask Renal to see her and the patient will be monitored, managed and treated appropriately. LIANG WILDER MD DR: YAJAIRA/korin JOB#: [id number] / [id number]
[2018-08-09 19:00] VITALS: BP 119/62
[2018-08-09] MEDS: ACETAMINOPHEN 500 MG TABLET PO SCH (21:00)
[2018-08-09] MEDS: GABAPENTIN 100 MG CAPSULE. PO SCH (22:13)
[2018-08-09] MEDS: LATANOPROST 0.005% OPHTH SOLUTION 2.5ML BOTTLE. OU SCH (22:13)
[2018-08-09] MEDS: CYCLOBENZAPRINE 10 MG TABLET. PO PRN (22:13)
--- NOTE | 2018-08-09 22:57 | CONS ---
DATE OF CONSULTATION: 08/09/2018 LOCATION: She is in room 532. ATTENDING PHYSICIAN: Dr. Jamison Brenner. The patient was seen at the request of Dr. Brenner for evaluation about her right shoulder blade area pain. HISTORY OF PRESENT ILLNESS: This is an 83-year-old female admitted through the Emergency Room with abnormal labs. She was noted with elevated BUN and creatinine and sent here for evaluation of renal insufficiency. She apparently had chronic renal insufficiency and anemia and also admits right shoulder blade area pain that started on 08/03/2018. She apparently had a fall on 08/05/2018, but her shoulder blade pain has been there before. The patient also admits to chronic obstructive pulmonary disease, uses oxygen by nasal cannula on as needed basis and at nighttime. The patient also with known anxiety, carcinoma, congestive heart failure, diabetes mellitus, gastroesophageal reflux disease, glaucoma, heart disease, hypertension, chronic renal insufficiency and renal failure, tachycardia syndrome, gout, carcinoma of lung, appendectomy, cholecystectomy, hip replacement, hysterectomy, bunionectomy, back surgery done twice in the past, lung resection, carpal tunnel release, cataract surgery, known allergic to STRAWBERRY AND TOMATO. The patient is a long-term resident. She usually gets around. She also admits to some pain in her left knee and admits that she was told that she had bad arthritis in both knees. PHYSICAL EXAMINATION: Today revealed an elderly female. She is alert, oriented to time, place, person and circumstance and follows commands appropriately. She is cooperative during the examination. She is protecting her right shoulder. She had some pain on range of motion of her cervical spine, mainly extension and forward flexion. She had painfully limited movements of her right shoulder, tenderness to palpation mainly over right posterior shoulder girdle muscles and also over right upper thoracic paraspinal muscles and to some extent over right shoulder. She had 5/5 grade muscle strength in her extremities. Deep tendon reflexes are 1-2+ and symmetrical with absent ankle jerks. She had equal perception of touch and pinprick sensation bilaterally. She had crepitus on range of motion of both knee joints with knee joint effusion. She had pain-free range of motion on both hip joints. She is independent with bed mobility and transfers and up walking. ASSESSMENT: An elderly female with right posterior shoulder girdle muscle strain with associated tendinitis in her right shoulder and radiological evidence of degenerative joint disease of right shoulder, no evidence of any rotator cuff lesion, also with degenerative joint disease of both knees with some pain, left knee; diabetes mellitus with peripheral neuropathy. The patient is status post 2 lumbar spine surgeries in the past without any significant back pain right now, chronic obstructive pulmonary disease, uses oxygen on as needed basis and at nighttime, anxiety, carcinoma of lung, status post resection, congestive heart failure, gastroesophageal reflux disease, glaucoma, coronary artery disease, hypertension, chronic renal insufficiency and failure. RECOMMENDATIONS: At her request, I have injected painful trigger points over right infraspinatus muscles under aseptic skin technique after skin prepped using alcohol with Marcaine 2 mL 0.25% solution mixed with 1 mL of Depo-Medrol 40 mg per 1 mL solution and she tolerated the procedure satisfactorily without any side effects. To ask Physical Therapy and Occupational Therapy to see her. Hopefully, back to long-term when medically stable. Dr. Brenner, I appreciate asking me to participate in the care of this interesting patient. I will be glad to follow her with you as needed for rehabilitation. SLY GUTIERREZ MD DR: LIO/korin JOB#: [id number] / [id number]
[2018-08-09 23:00] VITALS: BP 118/56
[2018-08-10 02:51] VITALS: BP 126/66
[2018-08-10] MEDS: IV 1/2 NORMAL SALINE 1,000 ML IV SCH ×2 (05:35→18:46)
[2018-08-10 06:48] LABS: CALCIUM 9.2 mg/dL (8.5-10.1); CREATININE 1.8 mg/dL (0.6-1.0); GFR 32.7; POTASSIUM 4.7 mmol/L (3.5-5.1)
[2018-08-10 07:00] VITALS: BP 115/54
[2018-08-10] MEDS: POTASSIUM CHLORIDE 20 MEQ TABLET.ER. PO SCH (08:08)
[2018-08-10] MEDS: SODIUM BICARBONATE 650 MG TABLET. PO SCH (08:10)
[2018-08-10] MEDS: PANTOPRAZOLE 40 MG TABLET.DR. PO SCH (08:10)
[2018-08-10] MEDS: GABAPENTIN 100 MG CAPSULE. PO SCH ×3 (08:10→20:29)
[2018-08-10] MEDS: ASPIRIN ENTERIC COATED 81 MG TABLET.DR. PO SCH (08:10)
[2018-08-10] MEDS: ROFLUMILAST 500 MCG TABLET. PO SCH (08:10)
[2018-08-10] MEDS: predniSONE 20 MG TABLET PO SCH (08:11)
[2018-08-10] MEDS: ACETAMINOPHEN 500 MG TABLET PO SCH ×3 (08:11→20:29)
[2018-08-10] MEDS: HYDROcodone/APAP 5/325MG 1 TAB TABLET PO PRN (08:12)
[2018-08-10] MEDS: CYCLOBENZAPRINE 10 MG TABLET. PO PRN ×2 (08:13→20:29)
[2018-08-10] MEDS: METOPROLOL SUCC 24HR ER 25 MG TAB.ER.24H. PO SCH (08:15)
[2018-08-10] MEDS: IPRATRPIUM/ALBUTEROL 0.5/2.5MG 3 ML NEBU. NEB SCH ×4 (08:34→20:07)
[2018-08-10] MEDS ORDERED: FUROSEMIDE 40 MG TABLET. PO SCH (09:00)
[2018-08-10] MEDS ORDERED: NON FORMULARY ITEM (Umeclidinium Brm/Vilanterol Tr (Anoro Ellipta 62.5-25 Mcg Inh) 1 EACH) IH SCH (09:00)
--- NOTE | 2018-08-10 10:11 | PDOC ---
PROGRESS NOTES Subjective Subjective She feels better with her right shoulder. Objective Objective Vital Signs Date Time Temp Pulse Resp B/P (MAP) Pulse Ox O2 Delivery O2 Flow Rate FiO2 08/10/18 08:35 93 Room Air 08/10/18 08:15 98 115/54 08/10/18 07:00 98.4 15 98.4 08/10/18 02:51 2.0 Intake and Output 08/10/18 07:00 Intake Total 480 ml Balance 480 ml Intake Oral 480 ml # Voids 4 # Bowel Movements 1 Physical Exam Physical Exam She is alert,sitting in bedside chair and receiving IV fluids and she is independent with her mobility and she had pain in her left knee while weight bearing with varus deformity.X-ray revealed bone in to bone narrowing of lateral knee joint line with bone spurs at edges. She had knee joint effusion.She is anemic.She is moving right shoulder actively without protecting it like she did yesterday. Assessment Assessment Problems Medical Problems: (1) Anemia Status: Acute (2) Back pain Status: Acute (3) CHF (congestive heart failure) Status: Acute (4) Chronic renal insufficiency Status: Acute (5) Generalized weakness Status: Acute Plan Plan of Care At her request,I have injected her left knee joint under aseptic skin technique with 2 ml of 0.25% marcaine solution mixed with 1 ml of depomedrol 40 mg/1 ml solution and she tolerated the procedure satisfactorily without any side effects. To continue physical therapy follow up. Yo start her on niferex as she is anemic. Comment Review of Relevant I have reviewed the following items maria (where applicable) has been applied. Labs Laboratory Tests Test 08/08/18 12:34 08/08/18 13:49 08/08/18 16:20 08/08/18 20:49 White Blood Count 5.8 x10^3/uL (4.0-11.0) Red Blood Count 2.60 x10^6/uL (3.50-5.40) Hemoglobin 8.2 g/dL (12.0-15.5) Hematocrit 25.1 % (36.0-47.0) Mean Corpuscular Volume 96 fL (79-100) Mean Corpuscular Hemoglobin 31 pg (25-35) Mean Corpuscular Hemoglobin Concent 33 g/dL (31-37) Red Cell Distribution Width 17.6 % (11.5-14.5) Platelet Count 229 x10^3/uL (140-400) Neutrophils (%) (Auto) 77 % (31-73) Lymphocytes (%) (Auto) 12 % (24-48) Monocytes (%) (Auto) 10 % (0-9) Eosinophils (%) (Auto) 1 % (0-3) Basophils (%) (Auto) 1 % (0-3) Neutrophils # (Auto) 4.5 x10^3uL (1.8-7.7) Lymphocytes # (Auto) 0.7 x10^3/uL (1.0-4.8) Monocytes # (Auto) 0.5 x10^3/uL (0.0-1.1) Eosinophils # (Auto) 0.1 x10^3/uL (0.0-0.7) Basophils # (Auto) 0.0 x10^3/uL (0.0-0.2) Segmented Neutrophils % 67 % (35-66) Band Neutrophils % 15 % (0-9) Lymphocytes % 9 % (24-48) Monocytes % 7 % (0-10) Eosinophils % 1 % (0-5) Metamyelocytes % 1 % (0-0) Platelet Estimate Adequate (ADEQUATE) Anisocytosis Slight Sodium Level 134 mmol/L (136-145) Potassium Level 4.9 mmol/L (3.5-5.1) Chloride Level 98 mmol/L (98-107) Carbon Dioxide Level 28 mmol/L (21-32) Anion Gap 8 (6-14) Blood Urea Nitrogen 44 mg/dL (7-20) Creatinine 2.2 mg/dL (0.6-1.0) Estimated GFR (Cockcroft-Gault) 25.9 BUN/Creatinine Ratio 20 (6-20) Glucose Level 90 mg/dL (70-99) Lactic Acid Level 2.0 mmol/L (0.4-2.0) Calcium Level 9.3 mg/dL (8.5-10.1) Magnesium Level 2.3 mg/dL (1.8-2.4) Total Bilirubin 0.3 mg/dL (0.2-1.0) Aspartate Amino Transf (AST/SGOT) 30 U/L (15-37) Alanine Aminotransferase (ALT/SGPT) 21 U/L (14-59) Alkaline Phosphatase 139 U/L (46-116) Creatine Kinase 111 U/L (26-192) Troponin I Quantitative < 0.017 ng/mL (0.000-0.055) AB-Tjd-O-Type Natriuretic Peptide 607 pg/mL (0-449) Total Protein 6.6 g/dL (6.4-8.2) Albumin 2.7 g/dL (3.4-5.0) Albumin/Globulin Ratio 0.7 (1.0-1.7) Urine Collection Type U cath Urine Color Yellow Urine Clarity Clear Urine pH 6.0 Urine Specific [place] 1.010 Urine Protein Negative mg/dL (NEG-TRACE) Urine Glucose (UA) Negative mg/dL (NEG) Urine Ketones (Stick) Negative mg/dL (NEG) Urine Blood Negative (NEG) Urine Nitrite Negative (NEG) Urine Bilirubin Negative (NEG) Urine Urobilinogen Dipstick 0.2 mg/dL (0.2 mg/dL) Urine Leukocyte Esterase Negative (NEG) Urine RBC Occ /HPF (0-2) Urine WBC 0 /HPF (0-4) Urine Squamous Epithelial Cells Mod /LPF Urine Bacteria 0 /HPF (0-FEW) Glucose (Fingerstick) 75 mg/dL (70-99) 94 mg/dL (70-99) Test 08/09/18 07:25 08/09/18 11:32 08/09/18 16:58 08/09/18 20:33 Glucose (Fingerstick) 84 mg/dL (70-99) 110 mg/dL (70-99) 129 mg/dL (70-99) 165 mg/dL (70-99) Test 08/10/18 05:38 Sodium Level 135 mmol/L (136-145) Potassium Level 4.7 mmol/L (3.5-5.1) Chloride Level 97 mmol/L (98-107) Carbon Dioxide Level 28 mmol/L (21-32) Anion Gap 10 (6-14) Blood Urea Nitrogen 42 mg/dL (7-20) Creatinine 1.8 mg/dL (0.6-1.0) Estimated GFR (Cockcroft-Gault) 32.7 Glucose Level 105 mg/dL (70-99) Calcium Level 9.2 mg/dL (8.5-10.1) Laboratory Tests Test 08/09/18 11:32 4/12/19 16:58 08/09/18 20:33 08/10/18 05:38 Glucose (Fingerstick) 110 mg/dL (70-99) 129 mg/dL (70-99) 165 mg/dL (70-99) Sodium Level 135 mmol/L (136-145) Potassium Level 4.7 mmol/L (3.5-5.1) Chloride Level 97 mmol/L (98-107) Carbon Dioxide Level 28 mmol/L (21-32) Anion Gap 10 (6-14) Blood Urea Nitrogen 42 mg/dL (7-20) Creatinine 1.8 mg/dL (0.6-1.0) Estimated GFR (Cockcroft-Gault) 32.7 Glucose Level 105 mg/dL (70-99) Calcium Level 9.2 mg/dL (8.5-10.1) Medications Current Medications Fentanyl Citrate (Fentanyl 2ml Vial) 50 mcg 1X ONCE IV Last administered on 03/18at 13:08; Start 08/08/18 at 12:30; Stop 08/08/18 at 12:31; Status DC Acetaminophen/ Hydrocodone Bitart (Lortab 5/325) 1 tab PRN Q4HRS PRN PO MODERATE PAIN Last administered on 08/09/18at 22:14; Start 08/08/18 at 21:45 Prednisone (Prednisone) 40 mg DAILY PO Last administered on 08/10/18at 08:11; Start 08/09/18 at 09:00 Methylprednisolone Acetate (DEPO-Medrol 40MG VIAL) 40 mg 1X ONCE IM ; Start 04/17 at 10:30; Stop 08/09/18 at 10:31; Status DC Bupivacaine HCl (Sensorcaine-Mpf 0.25%) 10 ml 1X ONCE IJ ; Start 08/09/18 at 10 :30; Stop 08/09/18 at 10:31; Status DC Tizanidine HCl (Zanaflex) 4 mg PRN Q8HRS PRN PO MUSCLE SPASMS; Start 08/09/18 at 10:30 Acetaminophen (Tylenol) 500 mg TID PO Last administered on 08/10/18at 08:11; Start 08/09/18 at 21:00 Aspirin (Ecotrin) 81 mg DAILYWBKFT PO Last administered on 4/13/19at 08:10; Start 08/10/18 at 08:00 Cyclobenzaprine HCl (Flexeril) 10 mg PRN TID PRN PO MUSCLE SPASMS Last administered on 08/10/18 08:13; Start 08/09/18 at 17:15 Furosemide (Lasix) 40 mg DAILY PO Last administered on 08/10/18 08:09; Start 08/10/18 at 09:00 Gabapentin (Neurontin) 100 mg TID PO Last administered on 08/10/18 08:10; Start 08/09/18 at 21:00 Guaifenesin (Mucinex) 600 mg BID PO Last administered on 08/10/18 08:10; Start 08/09/18 at 21:00 Albuterol/ Ipratropium (Duoneb) 3 ml RTQID NEB Last administered on 08/10/18 08:34; Start 08/09/18 at 17:30 Metoprolol Succinate (Toprol Xl) 25 mg DAILY PO Last administered on 08/10/18 08:15; Start 08/10/18 at 09:00 Nitroglycerin (Nitrostat) 0.4 mg PRN Q5MIN PRN SL CHEST PAIN; Start 08/09/18 at 17:15 Sodium Bicarbonate (Sodium Bicarbonate) 650 mg DAILY PO Last administered on 08:10; Start 08/10/18 at 09:00 Potassium Chloride (Klor-Con) 20 meq DAILYWBKFT PO Last administered on 08:08; Start 08/10/18 at 08:00 Roflumilast (Daliresp) 500 mcg DAILY PO Last administered on 08/10/18 08:10; Start 08/10/18 at 09:00 Latanoprost (Xalatan) 1 drop QHS OU Last administered on 08/09/18 22:13; Start 08/09/18 at 21:00 Non-Formulary Medication (Umeclidinium Brm/Vilanterol Tr (Anoro Ellipta 62.5-25 Mcg Inh)) 1 each DAILY IH ; Start 08/10/18 at 09:00; Status UNV Pantoprazole Sodium (Protonix) 40 mg DAILYAC PO Last administered on 08/10/18 08:10; Start 08/10/18 at 07:30 Sodium Chloride 1,000 ml @ 75 mls/hr [id number] IV Last administered on at 05:35; Start 08/09/18 at 17:30 Active Scripts Active [Pantoprazole] 40 MG Tablet.dr 40 Mg PO DAILYAC 30 Days Nitrostat (Nitroglycerin) 0.4 Mg Tab.subl 0.4 Mg SL PRN Q5MIN PRN Aspirin Ec (Aspirin) 81 Mg Tablet. 81 Mg PO DAILYWBKFT Reported Tylenol (Acetaminophen) 325 Mg Tablet 500 Mg PO TID Sodium Bicarbonate 650 Mg Tablet 1 Tab PO DAILY Probiotic (Lactobacillus Acidophilus) 1 Each Capsule 1 Each PO BID Potassium Chloride 20 Meq Tablet.er 20 Meq PO DAILY Metoprolol Succinate ( Xl ) (Metoprolol Succinate) 25 Mg Tab.er.24h 1 Tab PO DAILY Mucinex (Guaifenesin) 600 Mg Tablet.er 1 Tab PO BID Benzonatate 100 Mg Capsule 1 Cap PO PRN Q8HRS PRN Benzonatate 100 Mg Capsule 1 Cap PO HS Gabapentin (Gabapentin) 100 Mg Capsule 100 Mg PO TID Anoro Ellipta 62.5-25 Mcg Inh (Umeclidinium Brm/Vilanterol Tr) 1 Each Disk.w.dev 1 Each IH DAILY Daliresp (Roflumilast) 500 Mcg Tablet 500 Mcg PO DAILY Duoneb 0.5-3(2.5) Mg/3 Ml (Albuterol/Ipratropium) 3 Ml Ampul.neb 3 Ml NEB QID Lasix (Furosemide) 40 Mg Tablet 1 Tab PO DAILY Travatan Z (Travoprost) 5 Ml Drops 1 Drop EACHEYE QHS Cyclobenzaprine Hcl 10 Mg Tablet 1 Tab PO PRN TID Vitals/I & O Vital Sign - Last 24 Hours 08/09/18 08/09/18 08/09/18 08/09/18 11:00 15:00 19:00 19:44 Temp 98.2 98.2 98.5 98.2 98.2 98.5 Pulse 96 85 71 Resp 14 16 18 B/P (MAP) 109/53 (71) 94/72 (79) 119/62 (81) Pulse Ox 91 96 92 O2 Delivery Nasal Cannula Nasal Cannula Room Air Room Air O2 Flow Rate 2.0 2.0 408/09/18 08/09/18 08/09/18 19:51 22:14 23:00 23:14 Temp 98.1 98.1 Pulse 90 Resp 18 18 B/P (MAP) 118/56 (76) Pulse Ox 96 96 90 90 O2 Delivery Room Air Room Air Room Air Room Air O2 Flow Rate 2.0 08/10/18 08/10/18 08/10/18 08/10/18 02:51 07:00 08:00 08:15 Temp 98.4 98.4 98.4 98.4 Pulse 85 98 98 Resp 18 B/P (MAP) 126/66 (86) 115/54 (74) 115/54 Pulse Ox 98 95 O2 Delivery Nasal Cannula Room Air Room Air O2 Flow Rate 2.0 08/10/18 08:35 Pulse Ox 93 O2 Delivery Room Air Intake and Output 08/09/18 08/09/18 08/10/18 15:00 23:00 07:00 Intake Total 240 ml 120 ml 120 ml Balance 240 ml 120 ml 120 ml SLY GUTIERREZ MD Aug 10, 2018 10:11
[2018-08-10] MEDS ORDERED: methylPREDNISolone ACETATE 40 MG/ML VIAL. IM ONE (10:15)
[2018-08-10] MEDS ORDERED: BUPIVACAINE MPF 0.25% 10 ML VIAL. IJ ONE (10:15)
[2018-08-10 11:00] VITALS: BP 106/45
[2018-08-10] MEDS: IRON POLYSACCHARIDE COMPLEX 150 MG CAPSULE PO SCH ×2 (11:42→20:29)
[2018-08-10 15:00] VITALS: BP 116/50
--- NOTE | 2018-08-10 15:21 | PDOC2 ---
CONSULT Date of Consult Date of Consult DATE: 08/10/18 TIME: 15:13 Reason for Consult Reason for Consult: MARCI Referring Physician Referring Physician: TINA Identification/Chief Complaint Chief Complaint WEAKNESS AND FALLS Source Source: Chart review, Patient History of Present Illness Reason for Visit: THIS IS AN 83 YR OLD WITH WEAKNESS AND FALL BUT NO LOC REPORTED. ALSO NOTED TO HAVE MARCI WITH CR OF 2.2. 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 ALSO C/O OF RIGHT SHOULDER PAIN. DUE TO CONCERNS OF CHF HER LASIX DOSE WAS RECENTLY INCREASED PER PT. NO HX OF ANY KIDNEY OR BLADDER SURGERIES HEMATURIA DYSURIA NOTED. OCC FREQUENCY AND NOCTURIA IS REPORTED. NO HEMODYNAMIC INSTABILITY AND NO NEPHROTOXINS NOTED Past Medical History Cardiovascular: No pertinent hx, HTN Pulmonary: COPD, Other CENTRAL NERVOUS SYSTEM: Other GI: Diverticulosis Heme/Onc: Cancer Hepatobiliary: No pertinent hx Psych: No pertinent hx Musculoskeletal: low back pain, Osteoarthritis, Other Rheumatologic: No pertinent hx Infectious disease: No pertinent hx Renal/: No pertinent hx Endocrine: No pertinent hx Past Surgical History Past Surgical History: Appendectomy, Cataract Removal, Total hip replacement, Other Family History Family History: Coronary Artery Disease Social History ALCOHOL: none Current Problem List Problem List Problems Medical Problems: (1) Anemia Status: Acute (2) Back pain Status: Acute (3) CHF (congestive heart failure) Status: Acute (4) Chronic renal insufficiency Status: Acute (5) Generalized weakness Status: Acute Current Medications Current Medications Current Medications Fentanyl Citrate (Fentanyl 2ml Vial) 50 mcg 1X ONCE IV Last administered on 03/18at 13:08; Start 08/08/18 at 12:30; Stop 08/08/18 at 12:31; Status DC Acetaminophen/ Hydrocodone Bitart (Lortab 5/325) 1 tab PRN Q4HRS PRN PO MODERATE PAIN Last administered on 08/09/18at 22:14; Start 08/08/18 at 21:45 Prednisone (Prednisone) 40 mg DAILY PO Last administered on 08/10/18at 08:11; Start 08/09/18 at 09:00 Methylprednisolone Acetate (DEPO-Medrol 40MG VIAL) 40 mg 1X ONCE IM ; Start 04/17 at 10:30; Stop 08/09/18 at 10:31; Status DC Bupivacaine HCl (Sensorcaine-Mpf 0.25%) 10 ml 1X ONCE IJ ; Start 08/09/18 at 10 :30; Stop 08/09/18 at 10:31; Status DC Tizanidine HCl (Zanaflex) 4 mg PRN Q8HRS PRN PO MUSCLE SPASMS; Start 08/09/18 at 10:30 Acetaminophen (Tylenol) 500 mg TID PO Last administered on 08/10/18 13:37; Start 08/09/18 at 21:00 Aspirin (Ecotrin) 81 mg DAILYWBKFT PO Last administered on 08/10/18 08:10; Start 08/10/18 at 08:00 Cyclobenzaprine HCl (Flexeril) 10 mg PRN TID PRN PO MUSCLE SPASMS 1ST CHOICE Last administered on 08/10/18at 08:13; Start 08/09/18 at 17:15 Furosemide (Lasix) 40 mg DAILY PO Last administered on 08/10/18at 08:09; Start 08/10/18 at 09:00; Stop 08/10/18 at 11:16; Status DC Gabapentin (Neurontin) 100 mg TID PO Last administered on 08/10/18 13:37; Start 08/09/18 at 21:00 Guaifenesin (Mucinex) 600 mg BID PO Last administered on 08/10/18 08:10; Start 08/09/18 at 21:00 Albuterol/ Ipratropium (Duoneb) 3 ml RTQID NEB Last administered on 08/10/18at 12:44; Start 08/09/18 at 17:30 Metoprolol Succinate (Toprol Xl) 25 mg DAILY PO Last administered on 08/10/18at 08:15; Start 08/10/18 at 09:00 Nitroglycerin (Nitrostat) 0.4 mg PRN Q5MIN PRN SL CHEST PAIN; Start 08/09/18 at 17:15 Sodium Bicarbonate (Sodium Bicarbonate) 650 mg DAILY PO Last administered on at 08:10; Start 08/10/18 at 09:00 Potassium Chloride (Klor-Con) 20 meq DAILYWBKFT PO Last administered on at 08:08; Start 08/10/18 at 08:00 Roflumilast (Daliresp) 500 mcg DAILY PO Last administered on 08/10/18at 08:10; Start 08/10/18 at 09:00 Latanoprost (Xalatan) 1 drop QHS OU Last administered on 08/09/18at 22:13; Start 08/09/18 at 21:00 Non-Formulary Medication (Umeclidinium Brm/Vilanterol Tr (Anoro Ellipta 62.5-25 Mcg Inh)) 1 each DAILY IH ; Start 08/10/18 at 09:00; Status UNV Pantoprazole Sodium (Protonix) 40 mg DAILYAC PO Last administered on 08/10/18at 08:10; Start 08/10/18 at 07:30 Sodium Chloride 1,000 ml @ 75 mls/hr [id number] IV Last administered on at 05:35; Start 08/09/18 at 17:30 Polysaccharide Iron Complex (Niferex 150) 150 mg BID PO Last administered on at 11:42; Start 08/10/18 at 11:00 Methylprednisolone Acetate (DEPO-Medrol 40MG VIAL) 40 mg 1X ONCE IM ; Start at 10:15; Stop 08/10/18 at 10:18; Status DC Bupivacaine HCl (Sensorcaine-Mpf 0.25%) 10 ml 1X ONCE IJ ; Start 08/10/18 at 10 :15; Stop 08/10/18 at 10:18; Status DC Active Scripts Active [Pantoprazole] 40 MG Tablet.dr 40 Mg PO DAILYAC 30 Days Nitrostat (Nitroglycerin) 0.4 Mg Tab.subl 0.4 Mg SL PRN Q5MIN PRN Aspirin Ec (Aspirin) 81 Mg Tablet.dr 81 Mg PO DAILYWBKFT Reported Tylenol (Acetaminophen) 325 Mg Tablet 500 Mg PO TID Sodium Bicarbonate 650 Mg Tablet 1 Tab PO DAILY Probiotic (Lactobacillus Acidophilus) 1 Each Capsule 1 Each PO BID Potassium Chloride 20 Meq Tablet.er 20 Meq PO DAILY Metoprolol Succinate ( Xl ) (Metoprolol Succinate) 25 Mg Tab.er.24h 1 Tab PO DAILY Mucinex (Guaifenesin) 600 Mg Tablet.er 1 Tab PO BID Benzonatate 100 Mg Capsule 1 Cap PO PRN Q8HRS PRN Benzonatate 100 Mg Capsule 1 Cap PO HS Gabapentin (Gabapentin) 100 Mg Capsule 100 Mg PO TID Anoro Ellipta 62.5-25 Mcg Inh (Umeclidinium Brm/Vilanterol Tr) 1 Each Disk.w.dev 1 Each IH DAILY Daliresp (Roflumilast) 500 Mcg Tablet 500 Mcg PO DAILY Duoneb 0.5-3(2.5) Mg/3 Ml (Albuterol/Ipratropium) 3 Ml Ampul.neb 3 Ml NEB QID Lasix (Furosemide) 40 Mg Tablet 1 Tab PO DAILY Travatan Z (Travoprost) 5 Ml Drops 1 Drop EACHEYE QHS Cyclobenzaprine Hcl 10 Mg Tablet 1 Tab PO PRN TID Allergies Allergies: Coded Allergies: tomato (Verified Allergy, Severe, 09/08/16) strawberry (Verified Allergy, Intermediate, 09/07/16) ROS General: YES: Fatigue, Malaise, Appetite PSYCHOLOGICAL ROS: YES: Anxiety Eyes: Yes Decreased vision HEENT: YES: Heacaches Respiratory: YES: Cough Gastrointestinal: Yes Constipation Genitourinary: YES Frequency Musculoskeletal: Yes Muscular Weakness Neurological: Yes Weakness Skin: Yes Dry Skin Physical Exam General: Alert, Oriented X3, Cooperative, No acute distress HEENT: Atraumatic, PERRLA, EOMI, Mucous membr. moist/pink Lungs: Clear to auscultation Heart: Regular rate, Normal S1, Normal S2, Other (MR) Abdomen: Normal bowel sounds, Soft, No tenderness Extremities: No clubbing Skin: No breakdown Neuro: Normal speech Psych/Mental Status: Mental status NL, Mood NL MUSCULOSKELETAL: No joint tenderness, No deformity, No swelling, Other ( DIFFUSE MUSCLE ATROPHY) Vitals VITALS Vital Signs Date Time Temp Pulse Resp B/P (MAP) Pulse Ox O2 Delivery O2 Flow Rate FiO2 08/10/18 12:44 Room Air 08/10/18 11:00 98.2 89 16 106/45 (65) 94 98.2 08/10/18 02:51 2.0 Labs Labs Laboratory Tests Test 08/08/18 16:20 08/08/18 20:49 08/09/18 07:25 08/09/18 11:32 Glucose (Fingerstick) 75 mg/dL (70-99) 94 mg/dL (70-99) 84 mg/dL (70-99) 110 mg/dL (70-99) Test 08/09/18 16:58 08/09/18 20:33 08/10/18 05:38 08/10/18 07:45 Glucose (Fingerstick) 129 mg/dL (70-99) 165 mg/dL (70-99) 100 mg/dL (70-99) Sodium Level 135 mmol/L (136-145) Potassium Level 4.7 mmol/L (3.5-5.1) Chloride Level 97 mmol/L (98-107) Carbon Dioxide Level 28 mmol/L (21-32) Anion Gap 10 (6-14) Blood Urea Nitrogen 42 mg/dL (7-20) Creatinine 1.8 mg/dL (0.6-1.0) Estimated GFR (Cockcroft-Gault) 32.7 Glucose Level 105 mg/dL (70-99) Calcium Level 9.2 mg/dL (8.5-10.1) Test 08/10/18 11:38 Glucose (Fingerstick) 106 mg/dL (70-99) Laboratory Tests Test 08/09/18 16:58 08/09/18 20:33 08/10/18 05:38 08/10/18 07:45 Glucose (Fingerstick) 129 mg/dL (70-99) 165 mg/dL (70-99) 100 mg/dL (70-99) Sodium Level 135 mmol/L (136-145) Potassium Level 4.7 mmol/L (3.5-5.1) Chloride Level 97 mmol/L (98-107) Carbon Dioxide Level 28 mmol/L (21-32) Anion Gap 10 (6-14) Blood Urea Nitrogen 42 mg/dL (7-20) Creatinine 1.8 mg/dL (0.6-1.0) Estimated GFR (Cockcroft-Gault) 32.7 Glucose Level 105 mg/dL (70-99) Calcium Level 9.2 mg/dL (8.5-10.1) Test 08/10/18 11:38 Glucose (Fingerstick) 106 mg/dL (70-99) Images Images Clinical indications: BACK PAIN shortness of breath. TWO-VIEW CHEST X-RAY COMPARISON: July 12, 2018. Findings: Old posttraumatic changes or old post surgical changes of the right hemithorax are seen. 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 No acute lung infiltrate or pleural effusion or pulmonary edema or lung mass or pneumothorax is seen. Mild cardiomegaly is seen which is stable. The pulmonary vasculature, mediastinum and both kenton are unremarkable. Scoliosis is evident. There is a compression deformity of an upper lumbar vertebral body which is unchanged. Impression: No new radiographic abnormality is seen. Assessment/Plan Assessment/Plan IMP DECONDITIONING FALL PROB DUE TO ABOVE MARCI WITH CR OF 2.2 MILD DEHYDRATION-RECENT INCREASED DIURETICS CKD STAGE 3 TO 4 WITH CR OF 1.5-1.7 AT BASELINE HX OF CHF OA WITH SHOULDER PAIN PLAN UA IS CLEAR-NO INFECTION OR NEPHRITIS HYDRATION MAY BENEFIT FROM THERAPY ENCOURAGE FLUIDS LABS IN AM WILL FOLLOW LESIA RODRIGUEZ MD Aug 10, 2018 15:21
[2018-08-10 19:00] VITALS: BP 126/56
--- NOTE | 2018-08-10 20:12 | PN ---
DATE: 08/10/2018 SUBJECTIVE: The patient is awake, alert, definitely has less pain in her right shoulder blade, chest area after Dr. Plaza's injection yesterday. Feels that she would be ready to think about returning back to custodial very shortly because of the improvement, but would like to [facility] [place] as opposed to back out to the [facility] due to the fact that I would see her there. OBJECTIVE: VITAL SIGNS: Stable. She is afebrile. GENERAL: She is awake and alert. CHEST: Clear. HEART: Regular. ABDOMEN: Benign. Creatinine has decreased to 1.8 this morning from 2.2 yesterday and low flow IV fluids are continuing at this point in time. I am going to hold the Lasix also and we are awaiting Renal impression on the increase. IMPRESSION: 1. Chest pain, musculoskeletal, improved. 2. Recent fall. 3. Generalized weakness. 4. Chronic obstructive pulmonary disease. 5. Acute renal failure. PLAN: Continue hydration and Lasix. Await Renal opinion. Physical therapy evaluation with plan on likely return to custodial very soon. LIANG WILDER MD DR: YAJAIRA/korin JOB#: [id number] / [id number]
[2018-08-10] MEDS: LATANOPROST 0.005% OPHTH SOLUTION 2.5ML BOTTLE. OU SCH (20:28)
[2018-08-10 23:00] VITALS: BP 109/42
[2018-08-11 03:00] VITALS: BP 124/60
[2018-08-11 04:21] LABS: CALCIUM 8.5 mg/dL (8.5-10.1); CREATININE 1.5 mg/dL (0.6-1.0); GFR 40.3
[2018-08-11 07:00] VITALS: BP 128/66
[2018-08-11] MEDS: IPRATRPIUM/ALBUTEROL 0.5/2.5MG 3 ML NEBU. NEB SCH ×4 (07:48→19:36)
[2018-08-11] MEDS: IV 1/2 NORMAL SALINE 1,000 ML IV SCH (07:59)
[2018-08-11] MEDS: ROFLUMILAST 500 MCG TABLET. PO SCH (07:59)
[2018-08-11] MEDS: POTASSIUM CHLORIDE 20 MEQ TABLET.ER. PO SCH ×2 (08:00→08:05)
[2018-08-11] MEDS: ASPIRIN ENTERIC COATED 81 MG TABLET.DR. PO SCH (08:04)
[2018-08-11] MEDS: METOPROLOL SUCC 24HR ER 25 MG TAB.ER.24H. PO SCH (08:04)
[2018-08-11] MEDS: IRON POLYSACCHARIDE COMPLEX 150 MG CAPSULE PO SCH ×2 (08:04→20:18)
[2018-08-11] MEDS: predniSONE 20 MG TABLET PO SCH (08:05)
[2018-08-11] MEDS: GABAPENTIN 100 MG CAPSULE. PO SCH ×3 (08:05→20:18)
[2018-08-11] MEDS: PANTOPRAZOLE 40 MG TABLET.DR. PO SCH (08:05)
[2018-08-11] MEDS: SODIUM BICARBONATE 650 MG TABLET. PO SCH (08:05)
[2018-08-11] MEDS: CYCLOBENZAPRINE 10 MG TABLET. PO PRN ×2 (08:05→20:18)
[2018-08-11] MEDS: ACETAMINOPHEN 500 MG TABLET PO SCH ×3 (08:05→20:18)
[2018-08-11 11:00] VITALS: BP 119/62
--- NOTE | 2018-08-11 12:03 | PDOC ---
Renal-Progress Notes Subjective Notes Notes NO NEW COMPLAINTS History of Present Illness Hx of present illness STABLE Vitals Vitals Vital Signs Date Time Temp Pulse Resp B/P (MAP) Pulse Ox O2 Delivery O2 Flow Rate FiO2 08/11/18 11:38 Room Air 08/11/18 11:00 98.2 81 18 119/62 (81) 98 98.2 Weight Weight [ ] I.O. Intake and Output Intake and Output 08/11/18 07:00 Intake Total 720 ml Balance 720 ml Intake Oral 720 ml # Voids 5 # Bowel Movements 1 Labs Labs Laboratory Tests Test 08/10/18 16:47 08/10/18 20:44 08/11/18 03:30 08/11/18 07:57 Glucose (Fingerstick) 153 mg/dL (70-99) 176 mg/dL (70-99) 78 mg/dL (70-99) Sodium Level 129 mmol/L (136-145) Potassium Level 5.0 mmol/L (3.5-5.1) Chloride Level 96 mmol/L (98-107) Carbon Dioxide Level 25 mmol/L (21-32) Anion Gap 8 (6-14) Blood Urea Nitrogen 38 mg/dL (7-20) Creatinine 1.5 mg/dL (0.6-1.0) Estimated GFR (Cockcroft-Gault) 40.3 Glucose Level 93 mg/dL (70-99) Calcium Level 8.5 mg/dL (8.5-10.1) Iron Level 66 ug/dL (50-170) Total Iron Binding Capacity 233 ug/dL (250-450) Iron Saturation 28 % (15-34) Test 08/11/18 11:38 Glucose (Fingerstick) 83 mg/dL (70-99) Review of Systems Constitutional: yes: weakness, alert Ears/Nose/Throat: Yes: no symptom reported Eyes: Yes: no symptom reported Pulmonary: Yes no symptom reported Cardiovascular: Yes no symptom reported Gastrointestional: Yes: no symptom reported Genitourinary: Yes: no symptom reported Skin: Yes no symptom reported Psychiatric/Neurological: Yes: no symptom reported Endocrine: Yes: no symptom reported Physical Exam General Appearance: no apparent distress Skin: warm Respiratory: decreased breath sounds Heart: S1S2, RRR Abdomen: soft, bowel sounds present Genitourinary: bladder flat Extremities: pulses present Neurology: alert, follow commands, Ext weakness Musculoskeletal: low back pain, Other Assessment Assessment IMP DECONDITIONING FALL PROB DUE TO ABOVE MARCI RESOLVED HYPONATREMIA MILD DEHYDRATION-RECENT INCREASED DIURETICS CKD STAGE 3 TO 4 WITH CR OF 1.5-1.7 AT BASELINE HX OF CHF OA WITH SHOULDER PAIN PLAN UA IS CLEAR-NO INFECTION OR NEPHRITIS HYDRATION-CHANGE TO ISOTONIC SALINE MAY BENEFIT FROM THERAPY ENCOURAGE FLUIDS LABS IN AM WILL FOLLOW LESIA RODRIGUEZ MD Aug 11, 2018 12:03
[2018-08-11] MEDS: IV NORMAL SALINE 1000ML BAG 1,000 ML IV SCH (13:10)
[2018-08-11 15:00] VITALS: BP 136/63
[2018-08-11 19:00] VITALS: BP 142/59
[2018-08-11] MEDS: LATANOPROST 0.005% OPHTH SOLUTION 2.5ML BOTTLE. OU SCH (20:18)
[2018-08-11 23:04] VITALS: BP 118/63
--- NOTE | 2018-08-12 02:22 | PN ---
DATE: 08/11/2018 LOCATION: She is in room 532. SUBJECTIVE: The patient is awake, alert, sitting in a chair, feels much better after Dr. Plaza's injections and feels like she is probably ready to get out of here in the next day or so either to half-way or home depending on therapy. OBJECTIVE: VITAL SIGNS: Stable. She is afebrile. GENERAL: She is awake and alert. LUNGS: Clear. HEART: Regular. ABDOMEN: Benign. She is down to room air. At this point in time, rest with his O2 sats in her decent on the same. LABORATORY DATA: With her hemoglobin of 8.2, I am going to check some iron, B12 and folate levels prior to discharge. Her creatinine is down to 1.5 today, renal consult is appreciated. Sodium was down to 129. ASSESSMENT: 1. Chest pain, musculoskeletal, improved. 2. Recent fall. 3. Generalized weakness, improving. 4. Chronic obstructive pulmonary disease. 5. Acute renal failure, improving with hydration. 6. Hyponatremia. PLAN: Continue to hold Lasix ongoing hydration and follow renal labs as well as sodium, will look towards possible discharge within the next 24 hours or so. LIANG WILDER MD DR: YAJAIRA/korin JOB#: [id number] / [id number]
[2018-08-12 03:06] VITALS: BP 144/76
[2018-08-12 05:47] LABS: CALCIUM 8.8 mg/dL (8.5-10.1); CREATININE 1.4 mg/dL (0.6-1.0); GFR 43.7; POTASSIUM 4.4 mmol/L (3.5-5.1)
[2018-08-12] MEDS: IV NORMAL SALINE 1000ML BAG 1,000 ML IV SCH (06:01)
[2018-08-12 07:00] VITALS: BP 151/80
[2018-08-12] MEDS: PANTOPRAZOLE 40 MG TABLET.DR. PO SCH (08:05)
[2018-08-12] MEDS: POTASSIUM CHLORIDE 20 MEQ TABLET.ER. PO SCH (08:06)
[2018-08-12] MEDS: ROFLUMILAST 500 MCG TABLET. PO SCH (08:06)
[2018-08-12] MEDS: ASPIRIN ENTERIC COATED 81 MG TABLET.DR. PO SCH (08:06)
[2018-08-12] MEDS: predniSONE 20 MG TABLET PO SCH (08:08)
[2018-08-12] MEDS: IRON POLYSACCHARIDE COMPLEX 150 MG CAPSULE PO SCH (08:08)
[2018-08-12] MEDS: SODIUM BICARBONATE 650 MG TABLET. PO SCH (08:09)
[2018-08-12] MEDS: ACETAMINOPHEN 500 MG TABLET PO SCH (08:10)
[2018-08-12] MEDS: CYCLOBENZAPRINE 10 MG TABLET. PO PRN (08:10)
[2018-08-12] MEDS: METOPROLOL SUCC 24HR ER 25 MG TAB.ER.24H. PO SCH (08:10)
[2018-08-12] MEDS: IPRATRPIUM/ALBUTEROL 0.5/2.5MG 3 ML NEBU. NEB SCH (08:14)
--- NOTE | 2018-08-12 08:23 | SNU/HH DC ---
DISCHARGE WITH HOME HEALTH DISCHARGE INFORMATION: Discharge Date: Aug 12, 2018 Final Diagnosis: Problems Medical Problems: (1) Anemia Status: Acute (2) Back pain Status: Acute (3) CHF (congestive heart failure) Status: Acute (4) Chronic renal insufficiency Status: Acute (5) Generalized weakness Status: Acute Condition on Discharge: Stable CODE STATUS: Code Status: Full HOME HEALTH: Face to Face: I certify this patient is under my care and that I, or a nurse practitioner or physician's commercial real estate assistant working with me, had a face to face encounter that meets the physician face to face encounter requirements with this patient on 08/12/16[ ]. Halfway For: Assess Cardiopulm Status, Assess & Educate Safety, Assess/ Skilled Observatio, Medication Management RN For Eval/Treatment: Yes Physical Therapy For: Evalulation/Treatment Occupational Therapy For: Evaluation/Treatment Pt Meets Homebound Status: Extreme weakness w/ amb., Fatigue w/ amb., Frequent falls w/ injury, Limited distance walking POST DISCHARGE ORDERS: Activity Instructions for Disc: No restrictions Weight Bearing Status after Di: No restrictions, As tolerated DIET AFTER DISCHARGE: Regular Wound/Incision Care: No wound care needed CHECKS AFTER DISCHARGE: Checks after discharge: Check blood press - daily TREATMENT/EQUIPMENT ORDERS: Adaptive Equipment Issued: None Discharge Respiratory Equipmen: Oxygen CERTIFICATION STATEMENT: Certification Statement: Certification Statement: Based on the above finding, I certify that this patient is confined to the home and needs intermittent intermediate care, physical therapy and/or speech therapy, or continues to need occupational therapy.~ This patient is under my care, and I have initiated the establishment of the plan of care.~ This patient will be followed by myself or a community physician who will periodically review the plan of care. Home Meds Active Scripts [Pantoprazole] 40 MG TABLET. No Conflict Check, 40 MG PO DAILYAC for dyspepsia for 30 Days, #30 Prov:LIANG WILDER MD 07/18/18 Nitroglycerin (NITROSTAT) 0.4 Mg Tab.subl, 0.4 MG SL PRN Q5MIN PRN for CHEST PAIN, #10 TAB 3 Refills Prov:LIANG WILDER MD 06/02/16 Aspirin (ASPIRIN EC) 81 Mg Tablet., 81 MG PO DAILYWBKFT, #30 TAB 6 Refills Prov:LIANG WILDER MD 06/02/16 Reported Medications Acetaminophen (TYLENOL) 325 Mg Tablet, 500 MG PO TID for PAIN, #30 TAB 08/08/18 Sodium Bicarbonate (SODIUM BICARBONATE) 650 Mg Tablet, 1 TAB PO DAILY for SUPPLEMENT, #60 TAB 5 Refills 08/08/18 Metoprolol Succinate (METOPROLOL SUCCINATE ( XL )) 25 Mg Tab.er.24h, 1 TAB PO DAILY for htn, #30 TAB 5 Refills 08/08/18 Guaifenesin (MUCINEX) 600 Mg Tablet.er, 1 TAB PO BID for COPD, #14 TAB 08/08/18 Gabapentin (GABAPENTIN ) 100 Mg Capsule, 100 MG PO TID for NEUROGENIC PAIN, CAP 07/13/18 Umeclidinium Brm/Vilanterol Tr (ANORO ELLIPTA 62.5-25 MCG INH) 1 Each Disk.w.dev , 1 EACH IH DAILY for COPD, INH 07/13/18 Roflumilast (DALIRESP) 500 Mcg Tablet, 500 MCG PO DAILY for anti-inflammatory, TAB 06/16/17 Ipratropium/Albuterol Sulfate (DUONEB 0.5-3(2.5) MG/3 ML) 3 Ml Ampul.neb, 3 ML NEB QID, EACH 05/31/16 Travoprost (TRAVATAN Z) 5 Ml Drops, 1 DROP EACHEYE QHS, #2.5 ML 2 Refills 01/05/15 Cyclobenzaprine Hcl (CYCLOBENZAPRINE HCL) 10 Mg Tablet, 1 TAB PO PRN TID for MUSCLE SPAMS, #90 TAB 01/05/15 Discontinued Reported Medications Lactobacillus Acidophilus (PROBIOTIC) 1 Each Capsule, 1 EACH PO BID for ppx, CAP 08/08/18 Potassium Chloride (POTASSIUM CHLORIDE) 20 Meq Tablet.er, 20 MEQ PO DAILY for SUPPLEMENT, TAB.SR 08/08/18 Benzonatate (BENZONATATE) 100 Mg Capsule, 1 CAP PO PRN Q8HRS PRN for COUGH, #30 CAP 08/08/18 Benzonatate (BENZONATATE) 100 Mg Capsule, 1 CAP PO HS for COUGH, #30 CAP 08/08/18 Furosemide (LASIX) 40 Mg Tablet, 1 TAB PO DAILY, #90 TAB 1 Refill 05/31/16 LIANG WILDER MD Aug 12, 2018 08:23
[2018-08-12] MEDS: GABAPENTIN 100 MG CAPSULE. PO SCH (08:33)
--- NOTE | 2018-08-12 09:52 | PDOC ---
SUBJECTIVE ROS No complaints , states feeling better and maybe going home OBJECTIVE Vital Signs Vital Signs Date Time Temp Pulse Resp B/P (MAP) Pulse Ox O2 Delivery O2 Flow Rate FiO2 08/12/18 08:14 99 Room Air 08/12/18 08:10 94 151/80 08/12/18 07:00 98.2 16 98.2 I & 0 Intake and Output 08/12/18 06:59 Intake Total 3100 ml Balance 3100 ml Intake Oral 1100 ml IV Total 2000 ml # Voids 3 PHYSICAL EXAM Physical Exam GENERAL: NAD HEENT- OM moist NECK: Supple LUNGS : CTA, Non labored HEART: RRR ABDOMEN: Soft, nontender, EXTREMITIES: Without cyanosis, clubbing or edema. 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 nephrosclerosis HX of CHF - Compensated OA with shoulder pain Deconditioning/Fall Follow up with our Office 2-3 months post discharge COMMENT/RELEVANT DATA Meds Current Medications Medications (Trade) Dose Ordered Sig/Fortunato Start Time Stop Time Status Last Admin Dose Admin Acetaminophen (Tylenol) 500 mg TID 08/09/18 21:00 08/12/18 08:10 500 MG Acetaminophen/ Hydrocodone Bitart (Lortab 5/325) 1 tab PRN Q4HRS PRN 08/08/18 21:45 08/09/18 22:14 1 TAB Albuterol/ Ipratropium (Duoneb) 3 ml RTQID 08/09/18 17:30 08/12/18 08:14 3 ML Aspirin (Ecotrin) 81 mg DAILYWBKFT 08/10/18 08:00 08/12/18 08:06 81 MG Bupivacaine HCl (Sensorcaine-Mpf 0.25%) 10 ml 1X ONCE 08/10/18 10:15 08/10/18 10:18 DC Cyclobenzaprine HCl (Flexeril) 10 mg PRN TID PRN 08/09/18 17:15 08/12/18 08:10 10 MG Fentanyl Citrate (Fentanyl 2ml Vial) 50 mcg 1X ONCE 08/08/18 12:30 08/08/18 12:31 DC 08/08/18 13:08 50 MCG Furosemide (Lasix) 40 mg DAILY 08/10/18 09:00 08/10/18 11:16 DC 08/10/18 08:09 40 MG Gabapentin (Neurontin) 100 mg TID 08/09/18 21:00 08/12/18 08:33 100 MG Guaifenesin (Mucinex) 600 mg BID 08/09/18 21:00 08/12/18 08:07 600 MG Latanoprost (Xalatan) 1 drop QHS 08/09/18 21:00 08/11/18 20:18 1 DROP Methylprednisolone Acetate (DEPO-Medrol 40MG VIAL) 40 mg 1X ONCE 08/10/18 10:15 08/10/18 10:18 DC Metoprolol Succinate (Toprol Xl) 25 mg DAILY 08/10/18 09:00 08/12/18 08:10 25 MG Nitroglycerin (Nitrostat) 0.4 mg PRN Q5MIN PRN 08/09/18 17:15 Non-Formulary Medication (Umeclidinium Brm/Vilanterol Tr (Anoro Ellipta 62.5-25 Mcg Inh)) 1 each DAILY 08/10/18 09:00 UNV Pantoprazole Sodium (Protonix) 40 mg DAILYAC 08/10/18 07:30 08/12/18 08:05 40 MG Polysaccharide Iron Complex (Niferex 150) 150 mg BID 08/10/18 11:00 08/12/18 08:08 150 MG Potassium Chloride (Klor-Con) 20 meq DAILYWBKFT 08/10/18 08:00 08/12/18 08:06 20 MEQ Prednisone (Prednisone) 40 mg DAILY 08/09/18 09:00 08/12/18 08:08 40 MG Roflumilast (Daliresp) 500 mcg DAILY 08/10/18 09:00 08/12/18 08:06 500 MCG Sodium Bicarbonate (Sodium Bicarbonate) 650 mg DAILY 08/10/18 09:00 08/12/18 08:09 650 MG Sodium Chloride 1,000 ml @ 60 mls/hr [id number] 08/11/18 12:15 08/12/18 06:01 60 MLS/HR Tizanidine HCl (Zanaflex) 4 mg PRN Q8HRS PRN 08/09/18 10:30 Lab Laboratory Tests Test 08/11/18 11:38 08/11/18 16:26 08/11/18 20:34 08/12/18 04:43 Glucose (Fingerstick) 83 mg/dL (70-99) 209 mg/dL (70-99) 148 mg/dL (70-99) Sodium Level 138 mmol/L (136-145) Potassium Level 4.4 mmol/L (3.5-5.1) Chloride Level 102 mmol/L (98-107) Carbon Dioxide Level 26 mmol/L (21-32) Anion Gap 10 (6-14) Blood Urea Nitrogen 31 mg/dL (7-20) Creatinine 1.4 mg/dL (0.6-1.0) Estimated GFR (Cockcroft-Gault) 43.7 Glucose Level 91 mg/dL (70-99) Calcium Level 8.8 mg/dL (8.5-10.1) Results All relevant outside records, renal labs, imaging studies, telemetry/EKG's were reviewed. AXEL SWARTZ MD Aug 12, 2018 09:52
--- NOTE | 2018-08-12 10:03 | PDOC ---
PROGRESS NOTES Subjective Subjective She feels better with her right shoulder and left knee. Objective Objective Vital Signs Date Time Temp Pulse Resp B/P (MAP) Pulse Ox O2 Delivery O2 Flow Rate FiO2 08/12/18 08:14 99 Room Air 08/12/18 08:10 94 151/80 08/12/18 07:00 98.2 16 98.2 08/10/18 02:51 2.0 Intake and Output 08/12/18 06:59 Intake Total 3100 ml Balance 3100 ml Intake Oral 1100 ml IV Total 2000 ml # Voids 3 Physical Exam Physical Exam She is alert,sitting in bedside chair and comfortable and moves right shoulder without any pain. Assessment Assessment Problems Medical Problems: (1) Anemia Status: Acute (2) Back pain Status: Acute (3) CHF (congestive heart failure) Status: Acute (4) Chronic renal insufficiency Status: Acute (5) Generalized weakness Status: Acute Plan Plan of Care Agree with plans for discharge to nursing facility when medically stable. Comment Review of Relevant I have reviewed the following items maria (where applicable) has been applied. Labs Laboratory Tests Test 08/10/18 11:38 08/10/18 16:47 08/10/18 20:44 08/11/18 03:30 Glucose (Fingerstick) 106 mg/dL (70-99) 153 mg/dL (70-99) 176 mg/dL (70-99) Sodium Level 129 mmol/L (136-145) Potassium Level 5.0 mmol/L (3.5-5.1) Chloride Level 96 mmol/L (98-107) Carbon Dioxide Level 25 mmol/L (21-32) Anion Gap 8 (6-14) Blood Urea Nitrogen 38 mg/dL (7-20) Creatinine 1.5 mg/dL (0.6-1.0) Estimated GFR (Cockcroft-Gault) 40.3 Glucose Level 93 mg/dL (70-99) Calcium Level 8.5 mg/dL (8.5-10.1) Iron Level 66 ug/dL (50-170) Total Iron Binding Capacity 233 ug/dL (250-450) Iron Saturation 28 % (15-34) Vitamin B12 Level 522 pg/mL (247-911) Test 08/11/18 07:57 08/11/18 11:38 08/11/18 16:26 08/11/18 20:34 Glucose (Fingerstick) 78 mg/dL (70-99) 83 mg/dL (70-99) 209 mg/dL (70-99) 148 mg/dL (70-99) Test 08/12/18 04:43 Sodium Level 138 mmol/L (136-145) Potassium Level 4.4 mmol/L (3.5-5.1) Chloride Level 102 mmol/L (98-107) Carbon Dioxide Level 26 mmol/L (21-32) Anion Gap 10 (6-14) Blood Urea Nitrogen 31 mg/dL (7-20) Creatinine 1.4 mg/dL (0.6-1.0) Estimated GFR (Cockcroft-Gault) 43.7 Glucose Level 91 mg/dL (70-99) Calcium Level 8.8 mg/dL (8.5-10.1) Laboratory Tests Test 08/11/18 11:38 08/11/18 16:26 08/11/18 20:34 08/12/18 04:43 Glucose (Fingerstick) 83 mg/dL (70-99) 209 mg/dL (70-99) 148 mg/dL (70-99) Sodium Level 138 mmol/L (136-145) Potassium Level 4.4 mmol/L (3.5-5.1) Chloride Level 102 mmol/L (98-107) Carbon Dioxide Level 26 mmol/L (21-32) Anion Gap 10 (6-14) Blood Urea Nitrogen 31 mg/dL (7-20) Creatinine 1.4 mg/dL (0.6-1.0) Estimated GFR (Cockcroft-Gault) 43.7 Glucose Level 91 mg/dL (70-99) Calcium Level 8.8 mg/dL (8.5-10.1) Medications Current Medications Fentanyl Citrate (Fentanyl 2ml Vial) 50 mcg 1X ONCE IV Last administered on 03/18at 13:08; Start 08/08/18 at 12:30; Stop 08/08/18 at 12:31; Status DC Acetaminophen/ Hydrocodone Bitart (Lortab 5/325) 1 tab PRN Q4HRS PRN PO MODERATE PAIN Last administered on 08/09/18at 22:14; Start 08/08/18 at 21:45 Prednisone (Prednisone) 40 mg DAILY PO Last administered on 08/12/18at 08:08; Start 08/09/18 at 09:00 Methylprednisolone Acetate (DEPO-Medrol 40MG VIAL) 40 mg 1X ONCE IM ; Start 04/17 at 10:30; Stop 08/09/18 at 10:31; Status DC Bupivacaine HCl (Sensorcaine-Mpf 0.25%) 10 ml 1X ONCE IJ ; Start 08/09/18 at 10 :30; Stop 08/09/18 at 10:31; Status DC Tizanidine HCl (Zanaflex) 4 mg PRN Q8HRS PRN PO MUSCLE SPASMS; Start 08/09/18 at 10:30 Acetaminophen (Tylenol) 500 mg TID PO Last administered on 08/12/18 08:10; Start 08/09/18 at 21:00 Aspirin (Ecotrin) 81 mg DAILYWBKFT PO Last administered on 08/12/18 08:06; Start 08/10/18 at 08:00 Cyclobenzaprine HCl (Flexeril) 10 mg PRN TID PRN PO MUSCLE SPASMS 1ST CHOICE Last administered on 08/12/18 08:10; Start 08/09/18 at 17:15 Furosemide (Lasix) 40 mg DAILY PO Last administered on 08/10/18 08:09; Start 08/10/18 at 09:00; Stop 08/10/18 at 11:16; Status DC Gabapentin (Neurontin) 100 mg TID PO Last administered on 08/12/18 08:33; Start 08/09/18 at 21:00 Guaifenesin (Mucinex) 600 mg BID PO Last administered on 08/12/18 08:07; Start 08/09/18 at 21:00 Albuterol/ Ipratropium (Duoneb) 3 ml RTQID NEB Last administered on 08/12/18 08:14; Start 08/09/18 at 17:30 Metoprolol Succinate (Toprol Xl) 25 mg DAILY PO Last administered on 08/12/18 08:10; Start 08/10/18 at 09:00 Nitroglycerin (Nitrostat) 0.4 mg PRN Q5MIN PRN SL CHEST PAIN; Start 08/09/18 at 17:15 Sodium Bicarbonate (Sodium Bicarbonate) 650 mg DAILY PO Last administered on 08:09; Start 08/10/18 at 09:00 Potassium Chloride (Klor-Con) 20 meq DAILYWBKFT PO Last administered on at 08:06; Start 08/10/18 at 08:00 Roflumilast (Daliresp) 500 mcg DAILY PO Last administered on 08/12/18 08:06; Start 08/10/18 at 09:00 Latanoprost (Xalatan) 1 drop QHS OU Last administered on 08/11/18at 20:18; Start 08/09/18 at 21:00 Non-Formulary Medication (Umeclidinium Brm/Vilanterol Tr (Anoro Ellipta 62.5-25 Mcg Inh)) 1 each DAILY IH ; Start 08/10/18 at 09:00; Status UNV Pantoprazole Sodium (Protonix) 40 mg DAILYAC PO Last administered on 08/12/18 08:05; Start 08/10/18 at 07:30 Sodium Chloride 1,000 ml @ 75 mls/hr [id number] IV Last administered on at 07:59; Start 08/09/18 at 17:30; Stop 08/11/18 at 12:05; Status DC Polysaccharide Iron Complex (Niferex 150) 150 mg BID PO Last administered on at 08:08; Start 08/10/18 at 11:00 Methylprednisolone Acetate (DEPO-Medrol 40MG VIAL) 40 mg 1X ONCE IM ; Start at 10:15; Stop 08/10/18 at 10:18; Status DC Bupivacaine HCl (Sensorcaine-Mpf 0.25%) 10 ml 1X ONCE IJ ; Start 08/10/18 at 10 :15; Stop 08/10/18 at 10:18; Status DC Sodium Chloride 1,000 ml @ 60 mls/hr [id number] IV Last administered on at 06:01; Start 08/11/18 at 12:15 Active Scripts Active [Pantoprazole] 40 MG Tablet.dr 40 Mg PO DAILYAC 30 Days Nitrostat (Nitroglycerin) 0.4 Mg Tab.subl 0.4 Mg SL PRN Q5MIN PRN Aspirin Ec (Aspirin) 81 Mg Tablet.dr 81 Mg PO DAILYWBKFT Reported Tylenol (Acetaminophen) 325 Mg Tablet 500 Mg PO TID Sodium Bicarbonate 650 Mg Tablet 1 Tab PO DAILY Metoprolol Succinate ( Xl ) (Metoprolol Succinate) 25 Mg Tab.er.24h 1 Tab PO DAILY Mucinex (Guaifenesin) 600 Mg Tablet.er 1 Tab PO BID Gabapentin (Gabapentin) 100 Mg Capsule 100 Mg PO TID Anoro Ellipta 62.5-25 Mcg Inh (Umeclidinium Brm/Vilanterol Tr) 1 Each Disk.w.dev 1 Each IH DAILY Daliresp (Roflumilast) 500 Mcg Tablet 500 Mcg PO DAILY Duoneb 0.5-3(2.5) Mg/3 Ml (Albuterol/Ipratropium) 3 Ml Ampul.neb 3 Ml NEB QID Travatan Z (Travoprost) 5 Ml Drops 1 Drop EACHEYE QHS Cyclobenzaprine Hcl 10 Mg Tablet 1 Tab PO PRN TID Vitals/I & O Vital Sign - Last 24 Hours 08/11/18 08/11/18 08/11/18 08/11/18 11:00 11:38 15:00 15:30 Temp 98.2 98.0 98.2 98.0 Pulse 81 100 Resp 18 18 B/P (MAP) 119/62 (81) 136/63 (87) Pulse Ox 98 97 97 O2 Delivery Room Air Room Air Room Air Room Air 08/11/18 08/11/18 08/11/18 08/11/18 19:00 19:31 19:37 23:04 Temp 98.6 98.0 98.6 98.0 Pulse 94 88 Resp 20 20 B/P (MAP) 142/59 (86) 118/63 (81) Pulse Ox 97 97 95 O2 Delivery Room Air Room Air Room Air Room Air 08/12/18 08/12/18 08/12/18 08/12/18 03:06 07:00 08:00 08:10 Temp 98.1 98.2 98.1 98.2 Pulse 90 94 94 Resp 20 16 B/P (MAP) 144/76 (98) 151/80 (103) 151/80 Pulse Ox 94 98 O2 Delivery Nasal Cannula Room Air Room Air 08/12/18 08:14 Pulse Ox 99 O2 Delivery Room Air Intake and Output 08/11/18 08/11/18 08/12/18 14:59 22:59 06:59 Intake Total 2640 ml 460 ml Balance 2640 ml 460 ml SLY GUTIERREZ MD Aug 12, 2018 10:03
--- NOTE | 2018-08-12 10:58 | NUR ---
SW following pt for dc needs. Per Physician request, FINN phoned and faxed HH orders to [facility] and pt is accepted. Pt aware of plan and agreeable. Pt has a ride to take her home. CLIFFORD MEDELLIN.
[2018-08-12 11:00] VITALS: BP 140/64
--- NOTE | 2018-08-12 11:53 | NUR ---
Discharge teaching provided written and verbal to pt,understanding verbalized. Dismissed to home with all belongings accompanied by her son. Transported to exit per w/c at 1152.
--- NOTE | 2018-08-12 17:08 | DS ---
DATE OF DISCHARGE: 08/12/2018 PRIMARY DIAGNOSIS: Pleuritic chest pain. ADDITIONAL DIAGNOSES: Fall, acute renal failure, generalized weakness, chronic obstructive pulmonary disease. CHIEF COMPLAINT AND HISTORY OF PRESENT ILLNESS: This 83-year-old black female is well known to me from followup in the office. The patient left the hospital back around 07/17/2018 and come in at that time with acute renal failure and weakness with resolution of most of her symptoms by the week except for the weakness by the time of discharge. She had also had acute respiratory failure due to exacerbation of chronic obstructive pulmonary disease. BUN and creatinine at that time were elevated at 48 and 2.1, but were down to 27 and 1.3 by discharge. She was back to the Emergency Room on the day of admission with fall in a few days prior to admission on her left side. She complained of right-sided shoulder blade anterior chest pain starting prior to this, it was worse with movement and breath does hurt in the right arm with it also. She was weak with a recent fall, once again had acute renal failure with BUN of 40s, creatinine 2.2 and admitted for the same. SUMMARY OF STAY: The patient was admitted. Renal followed, they felt it was mainly dehydration in nature. Lasix was held with improvement in her renal function once again with a creatinine of 1.4 on the day of discharge. Therapy saw her and felt she was fairly stable and home with home health was rationale. Dr. Plaza saw her from rehab standpoint, did trigger point injections with as well as her left knee with marked improvement in her pain from admission where she was felt that she could go home. She thus was dismissed on the day of discharge. DISPOSITION: The patient is discharged to home, home health to follow, regular diet, activity as tolerated, office in one week. DISCHARGE MEDICATIONS: Listed on the med rec and have been addressed. LIANG WILDER MD DR: YAJAIRA/korin JOB#: [id number] / [id number]
== END 2018-08-12 11:52 | disposition home health service (06) | DRG 682 ==
LOC: ER 11:46 → 5 NORTH 14:09
PROVIDERS: ADMIT Family Medicine; ATTEND Family Medicine
PROC: 3E0233Z Introduction of Anti-inflammatory into Muscle, Percutaneous Approach (ICD-10-PCS; principal; 2018-08-08)
PROC: 3E023BZ Introduction of Anesthetic Agent into Muscle, Percutaneous Approach (ICD-10-PCS; 2018-08-08)
DX: N17.9 Acute kidney failure, unspecified (principal); E43 Unspecified severe protein-calorie malnutrition; I13.0 Hypertensive heart and chronic kidney disease with heart failure and stage 1 through stage 4 chronic kidney disease, or unspecified chronic kidney disease; E87.1 Hypo-osmolality and hyponatremia; E86.0 Dehydration; N18.4 Chronic kidney disease, stage 4 (severe); I50.9 Heart failure, unspecified; J44.9 Chronic obstructive pulmonary disease, unspecified; D64.9 Anemia, unspecified; E11.42 Type 2 diabetes mellitus with diabetic polyneuropathy; E11.22 Type 2 diabetes mellitus with diabetic chronic kidney disease; H40.9 Unspecified glaucoma; K21.9 Gastro-esophageal reflux disease without esophagitis; M17.0 Bilateral primary osteoarthritis of knee; M19.011 Primary osteoarthritis, right shoulder; F41.9 Anxiety disorder, unspecified; K57.90 Diverticulosis of intestine, part unspecified, without perforation or abscess without bleeding; M10.9 Gout, unspecified; M41.9 Scoliosis, unspecified; Z96.649 Presence of unspecified artificial hip joint; M75.91 Shoulder lesion, unspecified, right shoulder; Z82.49 Family history of ischemic heart disease and other diseases of the circulatory system; Z85.118 Personal history of other malignant neoplasm of bronchus and lung; Z87.891 Personal history of nicotine dependence; Z90.49 Acquired absence of other specified parts of digestive tract; Z90.710 Acquired absence of both cervix and uterus; Z91.018 Allergy to other foods; Z68.28 Body mass index [BMI] 28.0-28.9, adult; Z79.4 Long term (current) use of insulin; W18.39XA Other fall on same level, initial encounter; Y93.89 Activity, other specified; Y92.89 Other specified places as the place of occurrence of the external cause; Y99.8 Other external cause status; R07.81 Pleurodynia
CPT/HCPCS: 36415; 71046; 72072; 73010; 73565; 80048; 80053; 81001; 82550; 82607; 82962; 83540; 83550; 83605; 83735; 83880; 84484; 85007; 85025; 87641; 93005; 94640; 94760; 96374; J3010; J7030; J7512; J7620; 97530; 99285-25

== ENCOUNTER 2018-12-10 18:19 | Inpatient (IN) | payer MEDICARE ==
[~2018-12-10] VITALS: Ht 152.4 cm; Wt 92.5 kg
[~2018-12-10 18:19] MED LIST changes: +ACET325T9 PO; +BENZ-8 PO; +GUAI600T47 PO; +LACT1CAP6 PO; +POTA20TA82 PO; +SODI650T PO
--- NOTE | 2018-12-10 20:00 | PHYS DOC ---
Past Medical History Past Medical History: Anxiety, Cancer, CHF, COPD, Diabetes-Type II, GERD, Glaucoma, Heart Disease, Hypertension, Renal Disease, Renal Failure, Other Additional Past Medical Histor: tachycardia syndrome,gout,LUNG CA Past Surgical History: Appendectomy, Cholecystectomy, Hip Replacement, Hysterectomy, Other Additional Past Surgical Histo: bunionectomy, lower back surgery, lung re section, carpal tunnel, cataracts Alcohol Use: None Drug Use: None Adult General Chief Complaint Chief Complaint: DIZZY/LIGHT HEADED HPI HPI Patient is a 83 year old female presents to the ER with a chief complaint of dizziness, falls, tremors for month. The patient describes the dizziness is about to pass out. The patient states that she called her doctor and he told her to come to the ER. Denies any pain at this time. Review of Systems Review of Systems Constitutional: Denies fever or chills. Reports dizziness and tremors. Eyes: Denies change in visual acuity, redness, or eye pain [] HENT: Denies nasal congestion or sore throat [] Respiratory: Denies cough or shortness of breath [] Cardiovascular: No additional information not addressed in HPI [] GI: Denies abdominal pain, nausea, vomiting, bloody stools or diarrhea [] : Denies dysuria or hematuria [] Musculoskeletal: Denies back pain or joint pain [] Integument: Denies rash or skin lesions [] Neurologic: Denies headache, focal weakness or sensory changes [] Endocrine: Denies polyuria or polydipsia [] Complete systems were reviewed and found to be within normal limits, except as documented in this note. Current Medications Current Medications Current Medications Medications (Trade) Dose Ordered Sig/Fortunato Start Time Stop Time Status Last Admin Dose Admin Sodium Chloride 1,000 ml @ 100 mls/hr 1X ONCE 12/10/18 21:45 12/11/18 07:44 UNV Allergies Allergies Allergies Coded Allergies Type Severity Reaction Last Updated Verified tomato Allergy Severe 09/08/16 Yes strawberry Allergy Intermediate 09/07/16 Yes Physical Exam Physical Exam Constitutional: Well developed, well nourished, no acute distress, non-toxic appearance. [] HENT: Normocephalic, atraumatic, bilateral external ears normal, oropharynx moist, no oral exudates, nose normal. [] Eyes: PERRLA, EOMI, conjunctiva normal, no discharge. [] Neck: Normal range of motion, no tenderness, supple, no stridor. [] Cardiovascular:Heart rate regular rhythm, no murmur [] Lungs & Thorax: Bilateral breath sounds clear to auscultation [] Abdomen: Bowel sounds normal, soft, no tenderness, no masses, no pulsatile masses. [] Skin: Warm, dry, no erythema, no rash. [] Back: No tenderness, no CVA tenderness. [] Extremities: No tenderness, no cyanosis, no clubbing, ROM intact, no edema. [] Neurologic: Alert and oriented X 3, normal motor function, normal sensory func tion, no focal deficits noted. [] Psychologic: Affect normal, judgement normal, mood normal. [] Current Patient Data Vital Signs Vital Signs Date Time Temp Pulse Resp B/P (MAP) Pulse Ox O2 Delivery O2 Flow Rate FiO2 12/10/18 19:49 97.7 84 16 176/81 (112) 99 Room Air 97.7 Lab Values Laboratory Tests Test 12/10/18 20:10 12/10/18 20:30 12/10/18 20:55 White Blood Count 6.0 x10^3/uL (4.0-11.0) Red Blood Count 3.21 x10^6/uL (3.50-5.40) L Hemoglobin 9.8 g/dL (12.0-15.5) L Hematocrit 29.3 % (36.0-47.0) L Mean Corpuscular Volume 91 fL (79-100) Mean Corpuscular Hemoglobin 30 pg (25-35) Mean Corpuscular Hemoglobin Concent 33 g/dL (31-37) Red Cell Distribution Width 16.8 % (11.5-14.5) H Platelet Count 201 x10^3/uL (140-400) Neutrophils (%) (Auto) 66 % (31-73) Lymphocytes (%) (Auto) 25 % (24-48) Monocytes (%) (Auto) 8 % (0-9) Eosinophils (%) (Auto) 1 % (0-3) Basophils (%) (Auto) 1 % (0-3) Neutrophils # (Auto) 3.9 x10^3/uL (1.8-7.7) Lymphocytes # (Auto) 1.5 x10^3/uL (1.0-4.8) Monocytes # (Auto) 0.5 x10^3/uL (0.0-1.1) Eosinophils # (Auto) 0.0 x10^3/uL (0.0-0.7) Basophils # (Auto) 0.1 x10^3/uL (0.0-0.2) Urine Collection Type Void Urine Color Yellow Urine Clarity Clear Urine pH 7.5 Urine Specific Dierks <=1.005 Urine Protein Negative mg/dL (NEG-TRACE) Urine Glucose (UA) Negative mg/dL (NEG) Urine Ketones (Stick) Negative mg/dL (NEG) Urine Blood Negative (NEG) Urine Nitrite Negative (NEG) Urine Bilirubin Negative (NEG) Urine Urobilinogen Dipstick 0.2 mg/dL (0.2 mg/dL) Urine Leukocyte Esterase Negative (NEG) Urine RBC 0 /HPF (0-2) Urine WBC 1-4 /HPF (0-4) Urine Squamous Epithelial Cells Few /LPF Urine Bacteria Few /HPF (0-FEW) Urine Hyaline Casts Occasional /HPF Sodium Level 138 mmol/L (136-145) Potassium Level 4.6 mmol/L (3.5-5.1) Chloride Level 100 mmol/L (98-107) Carbon Dioxide Level 32 mmol/L (21-32) Anion Gap 6 (6-14) Blood Urea Nitrogen 64 mg/dL (7-20) H Creatinine 3.1 mg/dL (0.6-1.0) H Estimated GFR (Cockcroft-Gault) 17.4 BUN/Creatinine Ratio 21 (6-20) H Glucose Level 92 mg/dL (70-99) Calcium Level 10.0 mg/dL (8.5-10.1) Total Bilirubin 0.4 mg/dL (0.2-1.0) Aspartate Amino Transferase (AST) 23 U/L (15-37) Alanine Aminotransferase (ALT) 14 U/L (14-59) Alkaline Phosphatase 118 U/L (46-116) H Troponin I Quantitative < 0.017 ng/mL (0.000-0.055) Total Protein 7.5 g/dL (6.4-8.2) Albumin 3.8 g/dL (3.4-5.0) Albumin/Globulin Ratio 1.0 (1.0-1.7) Laboratory Tests 8/13/19 20:10 Laboratory Tests 12/10/18 20:55 EKG EKG EKG interpreted by Dr. Pedro Ling with rate of 76. No STEMI.[] Radiology/Procedures Radiology/Procedures [id number] [place] [address] IMAGING REPORT Signed PATIENT: JOSE ALFREDO BOWSER ACCOUNT: [id number] : 1935 LOCATION: ER AGE: 83 SEX: F EXAM STATUS: REG ER ORD. PHYSICIAN: GORDON ALVES APRN REASON: dizziness, falls PROCEDURE: CT HEAD WO CONTRAST CT head without contrast PQRS statement: CT scans at this facility use dose reduction including either automated exposure control, iterative reconstructions, and /or weight based radiation dosing via mA and kV modification when appropriate to reduce radiation dose to as low as reasonably achievable. HISTORY: Dizziness. Fall. TECHNIQUE: Noncontrast CT imaging of the head was acquired. FINDINGS: Mild generalized brain atrophy. No intracranial hemorrhage, mass, hydrocephalus or infarction. There is a ring detector artifact along the left cerebral hemisphere and calvarium accounting for some asymmetric heterogeneous hypoattenuation which may decrease sensitivity to detect subtle acute ischemic changes of the left cerebral hemisphere. Orbits, mastoids and bones are unremarkable. IMPRESSION: No acute intracranial CT abnormality. Electronically signed by: Edwardo Montalvo MD (12/10/2018 8:51 PM) [facility] [place] DICTATED and SIGNED BY: EDWARDO MONTALVO MD DATE: 12/10/182050 [][id number] [place] [address] IMAGING REPORT Signed PATIENT: JOSE ALFREDO BOWSER ACCOUNT: [id number] : 1935 LOCATION: ER AGE: 83 SEX: F EXAM STATUS: REG ER ORD. PHYSICIAN: GORDON ALVES APRN REASON: falls, dizziness PROCEDURE: CHEST PA & LATERAL PA and lateral chest x-ray COMPARISON: Chest x-ray August 08, 2018. HISTORY: Fall, dizziness. FINDINGS: Mild cardiomegaly stable. Aortic arch calcified plaque. Surgical clips at the right hilum again demonstrated. Lingula calcified granuloma. Thin linear atelectasis or scarring left lung base stable. Small pleural effusions or pleural thickening along the lateral and posterior diaphragms stable. Coarse interstitial markings at the lung bases are stable likely due to chronic interstitial disease, and hyperinflation of the lungs and flattening of diaphragms indicating air-trapping likely from pulmonary emphysema, stable. No pulmonary opacity. Old right rib deformity likely from thoracotomy again demonstrated. IMPRESSION: No acute process. Stable exam as described above. Electronically signed by: Edwardo Montalvo MD (12/10/2018 8:46 PM) [facility] DICTATED and SIGNED BY: EDWARDO MONTALVO MD DATE: 12/10/182045 Course & Med Decision Making Course & Med Decision Making Pertinent Labs and Imaging studies reviewed. (See chart for details) Will get labs, ekg, chest x-ray and CT head. Will also give 500 mL of fluids. Imaging is negative. Labs show hemoglobin of 9.8 that is stable based on past labs. Creatinine is elevated at 3.1 which is over double what it was 3 months [address] Brenner and admit for MARCI. Will also give another 500 mL of fluids and start maintenance fluids of 100 mL/hr. Discussed with Dr. Brenner ([id number]) who will admit to hospital. Dragon Disclaimer Dragon Disclaimer This electronic medical record was generated, in whole or in part, using a voice recognition dictation system. Departure Departure Impression: Primary Impression: MARCI (acute kidney injury) Additional Impressions: Dizziness Falls Disposition: ADMITTED INPATIENT Admitting Physician: Liang Brenner Condition: STABLE Referrals: LIANG BRENNER MD (PCP) Problem Qualifiers Additional Impressions: Falls Encounter type: initial encounter Qualified Codes: W19.XXXA - Unspecified fall, initial encounter ALVES,GORDON VARGAS Dec 10, 2018 20:00
[2018-12-10 20:26] LABS: BASO # 0.1 x10^3/uL (0.0-0.2); BASO % 1 % (0-3); EOS % 1 % (0-3); HEMATOCRIT 29.3 % (36.0-47.0); HEMOGLOBIN 9.8 g/dL (12.0-15.5); LYMPH # 1.5 x10^3/uL (1.0-4.8); LYMPH % 25 % (24-48); MEAN CORPUSCULAR HEMOGLOBIN 30 pg (25-35); MEAN CORPUSCULAR HGB CONC 33 g/dL (31-37); MEAN CORPUSCULAR VOLUME 91 fL (79-100); MONO # 0.5 x10^3/uL (0.0-1.1); MONO % 8 % (0-9); NEUT # 3.9 x10^3/uL (1.8-7.7); NEUT % 66 % (31-73); PLATELET COUNT 201 x10^3/uL (140-400); RED BLOOD COUNT 3.21 x10^6/uL (3.50-5.40); RED CELL DISTRIBUTION WIDTH 16.8 % (11.5-14.5)
[2018-12-10] MEDS ORDERED: IV NORMAL SALINE 500ML BAG 500 ML IV ONE ×2 (20:30→21:45)
[2018-12-10 20:41] LABS: BILIRUBIN,URINE NEGATIVE (NEG); CLARITY,URINE CLEAR; COLOR,URINE YELLOW; NITRITE,URINE NEGATIVE (NEG); PH,URINE 7.5; PROTEIN,URINE NEGATIVE (NEG-TRACE); UROBILINOGEN,URINE 0.2 mg/dL (0.2 mg/dL)
--- NOTE | 2018-12-10 20:49 | RAD ---
PA and lateral chest x-ray COMPARISON: Chest x-ray August 08, 2018. HISTORY: Fall, dizziness. FINDINGS: Mild cardiomegaly stable. Aortic arch calcified plaque. Surgical clips at the right hilum again demonstrated. Lingula calcified granuloma. Thin linear atelectasis or scarring left lung base stable. Small pleural effusions or pleural thickening along the lateral and posterior diaphragms stable. Coarse interstitial markings at the lung bases are stable likely due to chronic interstitial disease, and hyperinflation of the lungs and flattening of diaphragms indicating air-trapping likely from pulmonary emphysema, stable. No pulmonary opacity. Old right rib deformity likely from thoracotomy again demonstrated. IMPRESSION: No acute process. Stable exam as described above. Electronically signed by: August Montalvo MD (12/10/2018 8:46 PM) [facility]
[2018-12-10 20:50] LABS: BACTERIA,URINE FEW /HPF (0-FEW); HYALINE CASTS, URINE OCCASIONAL /HPF; RBC,URINE 0 /HPF (0-2); SQUAMOUS EPITHELIAL CELL,UR FEW /LPF
--- NOTE | 2018-12-10 20:54 | RAD ---
CT head without contrast PQRS statement: CT scans at this facility use dose reduction including either automated exposure control, iterative reconstructions, and /or weight based radiation dosing via mA and kV modification when appropriate to reduce radiation dose to as low as reasonably achievable. HISTORY: Dizziness. Fall. TECHNIQUE: Noncontrast CT imaging of the head was acquired. FINDINGS: Mild generalized brain atrophy. No intracranial hemorrhage, mass, hydrocephalus or infarction. There is a ring detector artifact along the left cerebral hemisphere and calvarium accounting for some asymmetric heterogeneous hypoattenuation which may decrease sensitivity to detect subtle acute ischemic changes of the left cerebral hemisphere. Orbits, mastoids and bones are unremarkable. IMPRESSION: No acute intracranial CT abnormality. Electronically signed by: August Montalvo MD (12/10/2018 8:51 PM) [facility]
[2018-12-10 21:13] LABS: CREATININE 3.1 mg/dL (0.6-1.0); GFR 17.4; POTASSIUM 4.6 mmol/L (3.5-5.1)
[2018-12-10 21:18] LABS: ALBUMIN 3.8 g/dL (3.4-5.0); TOTAL BILIRUBIN 0.4 mg/dL (0.2-1.0); TOTAL PROTEIN 7.5 g/dL (6.4-8.2)
[2018-12-10] MEDS ORDERED: IV NORMAL SALINE 1000ML BAG 1,000 ML IV ONE ×2 (21:45→22:00)
[2018-12-10] MEDS ORDERED: ONDANSETRON PF 4 MG/2 ML VIAL. IV PRN (22:00)
[2018-12-10] MEDS ORDERED: fentaNYL PF VIAL 100 MCG/2 ML VIAL IV PRN (22:00)
[2018-12-10 23:30] VITALS: BP 125/68
[2018-12-11] MEDS ORDERED: HYDR-2761 PO (00:21)
[2018-12-11] MEDS ORDERED: ACETAMINOPHEN 325 MG TABLET. PO PRN (00:30)
[2018-12-11] MEDS ORDERED: ACETAMINOPHEN 500 MG TABLET PO PRN (01:00)
[2018-12-11 03:12] VITALS: BP 92/48
--- NOTE | 2018-12-11 05:49 | EKG ---
[facility] [address] [place] [address] Test Date: 2018-12-10 Test Time: 20:08:58 Pat Name: JOSE ALFREDO BOWSER Department: Room: Gender: F Skatesman: : 1935 Requested By: GORDON ALVES Order Number: [id number] Reading MD: Measurements Intervals [place] Rate: 76 P: 43 OR: 168 QRS: -14 QRSD: 80 T: 42 QT: 404 QTc: 459 Interpretive Statements SINUS RHYTHM LEFTWARD AXIS NO SPECIFIC ECG ABNORMALITIES RI6.01 Unconfirmed report No previous ECG available for comparison
[2018-12-11] MEDS ORDERED: HYDROcodone/APAP 5/325MG 1 TAB TABLET PO PRN (07:00)
[2018-12-11 07:32] VITALS: BP 97/52
[2018-12-11 10:47] LABS: BASO % 1 % (0-3); EOS # 0.1 x10^3/uL (0.0-0.7); EOS % 2 % (0-3); HEMATOCRIT 27.7 % (36.0-47.0); LYMPH # 1.1 x10^3/uL (1.0-4.8); LYMPH % 22 % (24-48); MEAN CORPUSCULAR HEMOGLOBIN 30 pg (25-35); MEAN CORPUSCULAR HGB CONC 33 g/dL (31-37); MEAN CORPUSCULAR VOLUME 93 fL (79-100); MONO # 0.3 x10^3/uL (0.0-1.1); MONO % 6 % (0-9); NEUT # 3.4 x10^3/uL (1.8-7.7); NEUT % 70 % (31-73); PLATELET COUNT 188 x10^3/uL (140-400); RED BLOOD COUNT 2.99 x10^6/uL (3.50-5.40); RED CELL DISTRIBUTION WIDTH 16.4 % (11.5-14.5); WHITE BLOOD COUNT 4.9 x10^3/uL (4.0-11.0)
[2018-12-11 11:06] LABS: ALBUMIN 3.1 g/dL (3.4-5.0); CALCIUM 8.9 mg/dL (8.5-10.1); CREATININE 2.5 mg/dL (0.6-1.0); GFR 22.4; POTASSIUM 4.7 mmol/L (3.5-5.1); TOTAL BILIRUBIN 0.4 mg/dL (0.2-1.0); TOTAL PROTEIN 6.3 g/dL (6.4-8.2)
[2018-12-11 11:30] VITALS: BP 105/65
[2018-12-11] MEDS: ASPIRIN CHEWABLE 81 MG TABLET. PO SCH (12:25)
--- NOTE | 2018-12-11 14:41 | PDOC2 ---
CONSULT Date of Consult Date of Consult DATE: 12/11/18 TIME: 14:36 Reason for Consult Reason for Consult: MARCI Referring Physician Referring Physician: TINA Identification/Chief Complaint Chief Complaint DIZZY Source Source: Chart review History of Present Illness Reason for Visit: THIS IS AN 83 YR OLD WITH DIZZY SPELLS AND FALLS FOR ABOUT A MONTH. FEELS LIKE PASSING OUT. CR OF 3.1 AND SOME WHAT HYPOTENSIVE ON ADMIT. SHE HAS CKD BUT HAS NOT SEEN ANY MIXED [employer] OP. BASELINE CR IS ABOUT 1.5 TO 2.0. SHE IS ALSO ANEMIC. HE DENIED ANY OTHER HX AND DENIED ANY PROBLEMS EMPTYING HER BLADDER. UA IS NEG. Past Medical History Cardiovascular: No pertinent hx, HTN Pulmonary: COPD, Other CENTRAL NERVOUS SYSTEM: Other GI: Diverticulosis Heme/Onc: Cancer Hepatobiliary: No pertinent hx Psych: No pertinent hx Musculoskeletal: low back pain, Osteoarthritis, Other Rheumatologic: No pertinent hx Infectious disease: No pertinent hx Renal/: No pertinent hx Endocrine: No pertinent hx Past Surgical History Past Surgical History: Appendectomy, Cataract Removal, Total hip replacement, Other Family History Family History: Coronary Artery Disease Social History ALCOHOL: none Current Problem List Problem List Problems Medical Problems: (1) MARCI (acute kidney injury) Status: Acute (2) Dizziness Status: Acute (3) Falls Status: Acute Current Medications Current Medications Current Medications Sodium Chloride 500 ml @ 500 mls/hr 1X ONCE IV Last administered on 12/10/18at 21:31; Start 12/10/18 at 20:30; Stop 12/10/18 at 21:44; Status DC Sodium Chloride 1,000 ml @ 1,000 mls/hr 1X ONCE IV Last administered on 12/10/18at 22:05; Start 12/10/18 at 21:45; Stop 12/10/18 at 22:44; Status DC Sodium Chloride 500 ml @ 500 mls/hr 1X ONCE IV ; Start 12/10/18 at 21:45; Stop 12/10/18 at 22:44; Status DC Sodium Chloride 1,000 ml @ 100 mls/hr 1X ONCE IV Last administered on 12/11/18at 00:02; Start 12/10/18 at 22:00; Stop 12/11/18 at 07:59; Status DC Ondansetron HCl (Zofran) 4 mg PRN Q8HRS PRN IV NAUSEA/VOMITING; Start 12/10/18 at 22:00; Stop 12/11/18 at 21:59 Fentanyl Citrate (Fentanyl 2ml Vial) 50 mcg PRN Q1HR PRN IV PAIN; Start 12/10/18 at 22:00; Stop 12/11/18 at 21:59 Acetaminophen (Tylenol) 500 mg PRN Q4HRS PRN PO pain; Start 12/11/18 at 00:30; Stop 12/11/18 at 00:52; Status DC Acetaminophen (Tylenol) 500 mg PRN Q6HRS PRN PO MILD PAIN / TEMP Last administered on 12/11/18at 01:14; Start 12/11/18 at 01:00 Acetaminophen/ Hydrocodone Bitart (Lortab 5/325) 1 tab PRN Q4HRS PRN PO MODEATE PAIN, SEVERE PAIN; Start 12/11/18 at 07:00 Aspirin (Children'S Aspirin) 81 mg DAILYWBKFT PO Last administered on 12/11/18at 12:25; Start 12/11/18 at 11:00 Active Scripts Active [Pantoprazole] 40 MG Tablet. 40 Mg PO DAILYAC 30 Days Nitrostat (Nitroglycerin) 0.4 Mg Tab.subl 0.4 Mg SL PRN Q5MIN PRN Aspirin Ec (Aspirin) 81 Mg Tablet. 81 Mg PO DAILYWBKFT Reported Hydrocodone-Apap 5-325 (Hydrocodone Bit/Acetaminophen) 1 Tab Tablet 1 Tab PO PRN Q6HRS PRN Tylenol (Acetaminophen) 325 Mg Tablet 500 Mg PO PRN Sodium Bicarbonate 650 Mg Tablet 1 Tab PO DAILY Metoprolol Succinate ( Xl ) (Metoprolol Succinate) 25 Mg Tab.er.24h 1 Tab PO DAILY Mucinex (Guaifenesin) 600 Mg Tablet.er 1 Tab PO BID Gabapentin (Gabapentin) 100 Mg Capsule 100 Mg PO TID Anoro Ellipta 62.5-25 Mcg Inh (Umeclidinium Brm/Vilanterol Tr) 1 Each Disk.w.dev 1 Each IH DAILY Daliresp (Roflumilast) 500 Mcg Tablet 500 Mcg PO DAILY Duoneb 0.5-3(2.5) Mg/3 Ml (Albuterol/Ipratropium) 3 Ml Ampul.neb 3 Ml NEB TID Travatan Z (Travoprost) 5 Ml Drops 1 Drop EACHEYE QHS Cyclobenzaprine Hcl 10 Mg Tablet 1 Tab PO PRN TID Allergies Allergies: Coded Allergies: tomato (Verified Allergy, Severe, 09/08/16) strawberry (Verified Allergy, Intermediate, 09/07/16) ROS General: YES: Fatigue, Malaise, Appetite PSYCHOLOGICAL ROS: YES: Anxiety Eyes: Yes Decreased vision HEENT: YES: Heacaches Respiratory: YES: Cough Gastrointestinal: Yes Constipation Genitourinary: YES Other (NOCTURIA) Musculoskeletal: Yes Muscular Weakness Neurological: Yes Weakness Skin: Yes Dry Skin Physical Exam General: Alert, Oriented X3, Cooperative, No acute distress HEENT: Atraumatic, PERRLA, EOMI, Mucous membr. moist/pink Lungs: Clear to auscultation Heart: Regular rate, Normal S1, Normal S2 Abdomen: No tenderness Extremities: No clubbing Skin: No rashes Neuro: Normal speech, Cranial nerves 3-12 NL Psych/Mental Status: Mental status NL, Mood NL MUSCULOSKELETAL: No joint tenderness, No deformity Vitals VITALS Vital Signs Date Time Temp Pulse Resp B/P (MAP) Pulse Ox O2 Delivery O2 Flow Rate FiO2 12/11/18 11:30 97.6 77 18 105/65 (78) 97 Room Air 97.6 Labs Labs Laboratory Tests Test 12/10/18 20:10 12/10/18 20:30 12/10/18 20:55 12/11/18 10:00 White Blood Count 6.0 x10^3/uL (4.0-11.0) 4.9 x10^3/uL (4.0-11.0) Red Blood Count 3.21 x10^6/uL (3.50-5.40) 2.99 x10^6/uL (3.50-5.40) Hemoglobin 9.8 g/dL (12.0-15.5) 9.0 g/dL (12.0-15.5) Hematocrit 29.3 % (36.0-47.0) 27.7 % (36.0-47.0) Mean Corpuscular Volume 91 fL (79-100) 93 fL (79-100) Mean Corpuscular Hemoglobin 30 pg (25-35) 30 pg (25-35) Mean Corpuscular Hemoglobin Concent 33 g/dL (31-37) 33 g/dL (31-37) Red Cell Distribution Width 16.8 % (11.5-14.5) 16.4 % (11.5-14.5) Platelet Count 201 x10^3/uL (140-400) 188 x10^3/uL (140-400) Neutrophils (%) (Auto) 66 % (31-73) 70 % (31-73) Lymphocytes (%) (Auto) 25 % (24-48) 22 % (24-48) Monocytes (%) (Auto) 8 % (0-9) 6 % (0-9) Eosinophils (%) (Auto) 1 % (0-3) 2 % (0-3) Basophils (%) (Auto) 1 % (0-3) 1 % (0-3) Neutrophils # (Auto) 3.9 x10^3/uL (1.8-7.7) 3.4 x10^3/uL (1.8-7.7) Lymphocytes # (Auto) 1.5 x10^3/uL (1.0-4.8) 1.1 x10^3/uL (1.0-4.8) Monocytes # (Auto) 0.5 x10^3/uL (0.0-1.1) 0.3 x10^3/uL (0.0-1.1) Eosinophils # (Auto) 0.0 x10^3/uL (0.0-0.7) 0.1 x10^3/uL (0.0-0.7) Basophils # (Auto) 0.1 x10^3/uL (0.0-0.2) 0.0 x10^3/uL (0.0-0.2) Urine Collection Type Void Urine Color Yellow Urine Clarity Clear Urine pH 7.5 Urine Specific [place] <=1.005 Urine Protein Negative mg/dL (NEG-TRACE) Urine Glucose (UA) Negative mg/dL (NEG) Urine Ketones (Stick) Negative mg/dL (NEG) Urine Blood Negative (NEG) Urine Nitrite Negative (NEG) Urine Bilirubin Negative (NEG) Urine Urobilinogen Dipstick 0.2 mg/dL (0.2 mg/dL) Urine Leukocyte Esterase Negative (NEG) Urine RBC 0 /HPF (0-2) Urine WBC 1-4 /HPF (0-4) Urine Squamous Epithelial Cells Few /LPF Urine Bacteria Few /HPF (0-FEW) Urine Hyaline Casts Occasional /HPF Sodium Level 138 mmol/L (136-145) 140 mmol/L (136-145) Potassium Level 4.6 mmol/L (3.5-5.1) 4.7 mmol/L (3.5-5.1) Chloride Level 100 mmol/L (98-107) 105 mmol/L (98-107) Carbon Dioxide Level 32 mmol/L (21-32) 27 mmol/L (21-32) Anion Gap 6 (6-14) 8 (6-14) Blood Urea Nitrogen 64 mg/dL (7-20) 58 mg/dL (7-20) Creatinine 3.1 mg/dL (0.6-1.0) 2.5 mg/dL (0.6-1.0) Estimated GFR (Cockcroft-Gault) 17.4 22.4 BUN/Creatinine Ratio 21 (6-20) 23 (6-20) Glucose Level 92 mg/dL (70-99) 95 mg/dL (70-99) Calcium Level 10.0 mg/dL (8.5-10.1) 8.9 mg/dL (8.5-10.1) Total Bilirubin 0.4 mg/dL (0.2-1.0) 0.4 mg/dL (0.2-1.0) Aspartate Amino Transf (AST/SGOT) 23 U/L (15-37) 21 U/L (15-37) Alanine Aminotransferase (ALT/SGPT) 14 U/L (14-59) 14 U/L (14-59) Alkaline Phosphatase 118 U/L (46-116) 97 U/L (46-116) Troponin I Quantitative < 0.017 ng/mL (0.000-0.055) Total Protein 7.5 g/dL (6.4-8.2) 6.3 g/dL (6.4-8.2) Albumin 3.8 g/dL (3.4-5.0) 3.1 g/dL (3.4-5.0) Albumin/Globulin Ratio 1.0 (1.0-1.7) 1.0 (1.0-1.7) Laboratory Tests Test 12/10/18 20:10 12/10/18 20:30 12/10/18 20:55 12/11/18 10:00 White Blood Count 6.0 x10^3/uL (4.0-11.0) 4.9 x10^3/uL (4.0-11.0) Red Blood Count 3.21 x10^6/uL (3.50-5.40) 2.99 x10^6/uL (3.50-5.40) Hemoglobin 9.8 g/dL (12.0-15.5) 9.0 g/dL (12.0-15.5) Hematocrit 29.3 % (36.0-47.0) 27.7 % (36.0-47.0) Mean Corpuscular Volume 91 fL (79-100) 93 fL (79-100) Mean Corpuscular Hemoglobin 30 pg (25-35) 30 pg (25-35) Mean Corpuscular Hemoglobin Concent 33 g/dL (31-37) 33 g/dL (31-37) Red Cell Distribution Width 16.8 % (11.5-14.5) 16.4 % (11.5-14.5) Platelet Count 201 x10^3/uL (140-400) 188 x10^3/uL (140-400) Neutrophils (%) (Auto) 66 % (31-73) 70 % (31-73) Lymphocytes (%) (Auto) 25 % (24-48) 22 % (24-48) Monocytes (%) (Auto) 8 % (0-9) 6 % (0-9) Eosinophils (%) (Auto) 1 % (0-3) 2 % (0-3) Basophils (%) (Auto) 1 % (0-3) 1 % (0-3) Neutrophils # (Auto) 3.9 x10^3/uL (1.8-7.7) 3.4 x10^3/uL (1.8-7.7) Lymphocytes # (Auto) 1.5 x10^3/uL (1.0-4.8) 1.1 x10^3/uL (1.0-4.8) Monocytes # (Auto) 0.5 x10^3/uL (0.0-1.1) 0.3 x10^3/uL (0.0-1.1) Eosinophils # (Auto) 0.0 x10^3/uL (0.0-0.7) 0.1 x10^3/uL (0.0-0.7) Basophils # (Auto) 0.1 x10^3/uL (0.0-0.2) 0.0 x10^3/uL (0.0-0.2) Urine Collection Type Void Urine Color Yellow Urine Clarity Clear Urine pH 7.5 Urine Specific [place] <=1.005 Urine Protein Negative mg/dL (NEG-TRACE) Urine Glucose (UA) Negative mg/dL (NEG) Urine Ketones (Stick) Negative mg/dL (NEG) Urine Blood Negative (NEG) Urine Nitrite Negative (NEG) Urine Bilirubin Negative (NEG) Urine Urobilinogen Dipstick 0.2 mg/dL (0.2 mg/dL) Urine Leukocyte Esterase Negative (NEG) Urine RBC 0 /HPF (0-2) Urine WBC 1-4 /HPF (0-4) Urine Squamous Epithelial Cells Few /LPF Urine Bacteria Few /HPF (0-FEW) Urine Hyaline Casts Occasional /HPF Sodium Level 138 mmol/L (136-145) 140 mmol/L (136-145) Potassium Level 4.6 mmol/L (3.5-5.1) 4.7 mmol/L (3.5-5.1) Chloride Level 100 mmol/L (98-107) 105 mmol/L (98-107) Carbon Dioxide Level 32 mmol/L (21-32) 27 mmol/L (21-32) Anion Gap 6 (6-14) 8 (6-14) Blood Urea Nitrogen 64 mg/dL (7-20) 58 mg/dL (7-20) Creatinine 3.1 mg/dL (0.6-1.0) 2.5 mg/dL (0.6-1.0) Estimated GFR (Cockcroft-Gault) 17.4 22.4 BUN/Creatinine Ratio 21 (6-20) 23 (6-20) Glucose Level 92 mg/dL (70-99) 95 mg/dL (70-99) Calcium Level 10.0 mg/dL (8.5-10.1) 8.9 mg/dL (8.5-10.1) Total Bilirubin 0.4 mg/dL (0.2-1.0) 0.4 mg/dL (0.2-1.0) Aspartate Amino Transf (AST/SGOT) 23 U/L (15-37) 21 U/L (15-37) Alanine Aminotransferase (ALT/SGPT) 14 U/L (14-59) 14 U/L (14-59) Alkaline Phosphatase 118 U/L (46-116) 97 U/L (46-116) Troponin I Quantitative < 0.017 ng/mL (0.000-0.055) Total Protein 7.5 g/dL (6.4-8.2) 6.3 g/dL (6.4-8.2) Albumin 3.8 g/dL (3.4-5.0) 3.1 g/dL (3.4-5.0) Albumin/Globulin Ratio 1.0 (1.0-1.7) 1.0 (1.0-1.7) Assessment/Plan Assessment/Plan IMP HYPOTENSION NEAR SYNCOPE MARCI WITH CR OF 3.1 CKD STAGE 3 WITH CR OF 1.5 TO 2.0 PLAN RENAL SONOGRAM HYDRATION UA NEG FOR NEPHRITIS SYNCOPE WORK UP WILL FOLLOW LESIA RODRIGUEZ MD Dec 11, 2018 14:41
--- NOTE | 2018-12-11 15:16 | NUR ---
SW following pt for dc planning. Chart reviewed and discussed with RN. Pt lives at a long term apartment. Pt had used [facility] in the past. Nephrology following pt. PT/OT pending. SW will await for PT/OT recommendation to eval skilled needs. Will continue to follow.
[2018-12-11 15:17] VITALS: BP 106/61
[2018-12-11] MEDS: IV NORMAL SALINE 1000ML BAG 1,000 ML IV SCH (15:28)
--- NOTE | 2018-12-11 15:57 | HP ---
ADMIT DATE: CHIEF COMPLAINT AND HISTORY OF PRESENT ILLNESS: This 83-year-old black female is well known to me from followup in the office. The patient had complained of dizziness with more recent in the last couple of days, several falls due to the same as well as increased tremor over the last month. She described the dizziness as about to pass out in the Emergency Room; however, to me she has consistently described it as more of a benign positional vertigo type thing. Because of the multiple falls, she was sent to the hospital for evaluation where she was admitted. PAST MEDICAL HISTORY: Remarkable for lung cancer with resection many years ago, anxiety, COPD, CHF, diabetes, GERD, glaucoma, atherosclerotic heart disease, hypertension, chronic kidney disease with most recent creatinine in my office on 11/14/2018 being 1.5. Has a history of gout. PAST SURGICAL HISTORY: Remarkable for the lobectomy for cancer of the lung, appendectomy, cholecystectomy, hip replacement, hysterectomy, bunionectomy, carpal tunnel, lower back surgery, cataracts. MEDICATIONS: Brought with the patient, listed on the computer and have been addressed. ALLERGIES: SHE IS ALLERGIC TO STRAWBERRIES AND TOMATOES. SOCIAL HISTORY: She is a reformed smoker many years ago, does not use alcohol or drugs, is , and has very supportive family and lives alone. FAMILY HISTORY: Noncontributory. REVIEW OF SYSTEMS: As mentioned above. PHYSICAL EXAMINATION: GENERAL: She is well-developed, well-nourished female, in no acute distress. VITAL SIGNS: Stable. She is afebrile. HEAD, EYES, EARS, NOSE AND THROAT: Unremarkable. She does wear glasses. NECK: Supple, without any thyromegaly. CHEST: Reveals decreased breath sounds bilaterally, but clear. HEART: Regular rate and rhythm without S3, S4 or murmur. ABDOMEN: Soft, nontender, without hepatosplenomegaly or masses. EXTREMITIES: Revealed bruising over both knees and thighs from the recent falls. There is no cyanosis, clubbing or edema. NEUROLOGIC: She is intact. LABORATORY DATA: Initial workup in the Emergency Room led to the findings of acute renal failure with a BUN of 64, creatinine 3.1. Hemoglobin was 9.8 with normal red cell indices. CT head and chest x-ray showed no acute changes. IMPRESSION: 1. Dizziness with multiple falls. The patient is elderly and lives alone. 2. Acute renal failure of uncertain etiology. PLAN: The patient has been admitted. Renal as well as Neurology will be consulted. She will be hydrated. Labs will be followed. Therapy will be asked to see her and the patient will be monitored, managed and treated appropriately. LIANG WILDER MD DR: YAJAIRA/korin JOB#: [id number] / [id number]
--- NOTE | 2018-12-11 16:47 | RAD ---
Renal sonography Clinical indications: Renal cyst. Acute kidney injury. COMPARISON: CT study of the abdomen dated 08/15/2017. FINDINGS: The longitudinal AP and transverse dimensions of the right kidney are 7.6 m and 3.4 cm and 3.5 cm respectively. There is an upper pole simple cyst of the right kidney measuring 3.4 cm in size. This has not changed significantly. The longitudinal and AP and transverse dimensions of the left kidney are 7.1 cm and 3.0 cm and 3.7 cm respectively. No renal mass is seen on the left side. No hydronephrosis or perinephric fluid collection is seen on either side. The urinary bladder is mildly distended and no intraluminal echodensities or masses are seen. IMPRESSION: No change in size of upper pole right renal cyst. No hydronephrosis on either side. Mild symmetric bilateral renal atrophy. Electronically signed by: Jeremy Weller MD (12/11/2018 4:44 PM) [id number]
--- NOTE | 2018-12-11 18:00 | PDOC2 ---
NEUROLOGY CONSULT Date of Admission Date of Admission DATE: 12/11/18 TIME: 17:47 Reason for Consult Reason for Consult: IMPRESSION: Dizziness x 1 month. Vertigo x 1 month. Light headedness x 1 month. Generalized weakness. Tremors. Renal failure. DM. HTN. COPD. CHF. Anemia. Lung cancer. RECOMMENDATIONS/PLAN: MRI w/o contrast. Lab: see orders. Treat medical diseases. ASA 81 mg daily. OT/PT. History of Present Illness This is an 83-y-old AA female patient with above medical diseases has been having symptoms of dizziness, vertigo, light headiness for about 1 month. She stated her symptoms were persistent which resulted her 2 falls recently. Past Medical History Cardiovascular: No pertinent hx, HTN Pulmonary: COPD, Other CENTRAL NERVOUS SYSTEM: Other GI: Diverticulosis Heme/Onc: Cancer Hepatobiliary: No pertinent hx Psych: No pertinent hx Musculoskeletal: low back pain, Osteoarthritis, Other Rheumatologic: No pertinent hx Infectious disease: No pertinent hx Renal/: No pertinent hx Endocrine: No pertinent hx Past Surgical History Appendectomy, Cataract Removal, Total hip replacement, Other Family History Coronary Artery Disease Allergies Coded Allergies: tomato (Verified Allergy, Severe, 09/08/16) strawberry (Verified Allergy, Intermediate, 09/07/16) MEDICATIONS: Refer to [facility] SOCIAL HISTORY: Denies current smoking, drinking, and illicit drug use. REVIEW OF SYSTEMS: Constitutional: Obesity. Head: No traumatic brain or head injury. Skin: No edema, or rash. Ear: No infection. Eyes: No vision loss or color blindness. Nose: No bleeding or purulent discharges. Hearing: Mild hearing decrease. Neck: No injury. Breast: No history of cancer, masses,or discharges. Cardiac: HTN, HLD. Pulmonary: COPD. GI: No GI ulcer, GI bleeding. Urinary/genital: CKD Endocrinologic: Diabetes Mellitus. Skeletomuscular: Generalized weakness. Neurological: see HP. Psychiatric: Denies drug use/abuse. Otherwise, not [id number] review of systems. PHYSICAL EXAMINATION: General appearance is in subacute distress. HEENT: Normocephalic and nontraumatic. Eyes, nose, ears, and throat are unremarkable. Neck is supple. No lymphadenopathy. No crepitus. Cardiovascular: S1, S2, regular rate and rhythm. Pulmonary: Clear to auscultation bilaterally. Abdomen: Bowel sounds are positive. Abdomen is soft, nontender, and nondistended. Extremities: No rash, lesions, or edema. No restriction of range of motion NEUROLOGICAL EXAMINATION: Alert Partially oriented to time, place and person. PERRL. EOMI. CN: no focal findings. Muscle tone: within normal. Muscle strength: 4+ DTR: 2- Plantar reflex: Flexor response bilaterally Gait: not examined in bed. Sensory exam: no abnormal findings. No cerebellar signs elicited. F-T-N test fine. Current Medications Current Medications Current Medications Sodium Chloride 500 ml @ 500 mls/hr 1X ONCE IV Last administered on 12/10/18at 21:31; Start 12/10/18 at 20:30; Stop 12/10/18 at 21:44; Status DC Sodium Chloride 1,000 ml @ 1,000 mls/hr 1X ONCE IV Last administered on at 22:05; Start 12/10/18 at 21:45; Stop 12/10/18 at 22:44; Status DC Sodium Chloride 500 ml @ 500 mls/hr 1X ONCE IV ; Start 12/10/18 at 21:45; Stop 12/10/18 at 22:44; Status DC Sodium Chloride 1,000 ml @ 100 mls/hr 1X ONCE IV Last administered on 12/11/18at 00:02; Start 12/10/18 at 22:00; Stop 12/11/18 at 07:59; Status DC Ondansetron HCl (Zofran) 4 mg PRN Q8HRS PRN IV NAUSEA/VOMITING; Start 12/10/18 at 22:00; Stop 12/11/18 at 21:59 Fentanyl Citrate (Fentanyl 2ml Vial) 50 mcg PRN Q1HR PRN IV PAIN; Start 12/10/18 at 22:00; Stop 12/11/18 at 21:59 Acetaminophen (Tylenol) 500 mg PRN Q4HRS PRN PO pain; Start 12/11/18 at 00:30; Stop 12/11/18 at 00:52; Status DC Acetaminophen (Tylenol) 500 mg PRN Q6HRS PRN PO MILD PAIN / TEMP Last administered on 12/11/18at 01:14; Start 12/11/18 at 01:00 Acetaminophen/ Hydrocodone Bitart (Lortab 5/325) 1 tab PRN Q4HRS PRN PO MODEATE PAIN, SEVERE PAIN; Start 12/11/18 at 07:00 Aspirin (Children'S Aspirin) 81 mg DAILYWBKFT PO Last administered on 12/11/18at 12:25; Start 12/11/18 at 11:00 Sodium Chloride 1,000 ml @ 100 mls/hr Q10H IV Last administered on 12/11/18at 15:28; Start 12/11/18 at 14:45 Active Scripts Active [Pantoprazole] 40 MG Tablet.dr 40 Mg PO DAILYAC 30 Days Nitrostat (Nitroglycerin) 0.4 Mg Tab.subl 0.4 Mg SL PRN Q5MIN PRN Aspirin Ec (Aspirin) 81 Mg Tablet. 81 Mg PO DAILYWBKFT Reported Hydrocodone-Apap 5-325 (Hydrocodone Bit/Acetaminophen) 1 Tab Tablet 1 Tab PO PRN Q6HRS PRN Tylenol (Acetaminophen) 325 Mg Tablet 500 Mg PO PRN Sodium Bicarbonate 650 Mg Tablet 1 Tab PO DAILY Metoprolol Succinate ( Xl ) (Metoprolol Succinate) 25 Mg Tab.er.24h 1 Tab PO DAILY Mucinex (Guaifenesin) 600 Mg Tablet.er 1 Tab PO BID Gabapentin (Gabapentin) 100 Mg Capsule 100 Mg PO TID Anoro Ellipta 62.5-25 Mcg Inh (Umeclidinium Brm/Vilanterol Tr) 1 Each Disk.w.dev 1 Each IH DAILY Daliresp (Roflumilast) 500 Mcg Tablet 500 Mcg PO DAILY Duoneb 0.5-3(2.5) Mg/3 Ml (Albuterol/Ipratropium) 3 Ml Ampul.neb 3 Ml NEB TID Travatan Z (Travoprost) 5 Ml Drops 1 Drop EACHEYE QHS Cyclobenzaprine Hcl 10 Mg Tablet 1 Tab PO PRN TID Allergies Allergies: Allergies Coded Allergies Type Severity Reaction Last Updated Verified tomato Allergy Severe 09/08/16 Yes strawberry Allergy Intermediate 09/07/16 Yes ROS Review of System The patient denies any associated fevers, chills, headache, ear pain, rhinorrhea, sore throat, stiff neck, productive cough, chest pain, shortness of breath, back or flank pain, abdominal pain, nausea, vomiting, diarrhea, constipation, dysuria, rash, numbness, weakness, tingling, incontinence, difficulty ambulating, or diaphoresis. Physical Exam Physical Exam General: Well developed, well nourished, no acute distress, well appearing HEENT: Pupils equally round and reactive to light, EOMI, no discharge, normal conjunctiva Neck: Supple, no nuchal rigidity, no JVD, trachea midline, no tenderness Cardiac: RRR, no murmurs, no gallops, no rubs Chest/Lungs: CTAB, no wheeze, no rhonchi, no crackles Abdomen: soft, non-distended, no guarding, no peritoneal signs, non-tender Back: No tenderness Extremities: no edema, pulses intact, non-tender,capillary refill <3 sec bilateral upper and lower extremities, Neuro: Alert and oriented x 4, no focal deficits, normal speech Vitals Vitals: Vital Signs Date Time Temp Pulse Resp B/P (MAP) Pulse Ox O2 Delivery O2 Flow Rate FiO2 12/11/18 15:17 98.6 73 18 106/61 (76) 100 Room Air 98.6 Labs Labs Laboratory Tests Test 12/10/18 20:10 12/10/18 20:30 12/10/18 20:55 12/11/18 10:00 White Blood Count 6.0 x10^3/uL (4.0-11.0) 4.9 x10^3/uL (4.0-11.0) Red Blood Count 3.21 x10^6/uL (3.50-5.40) 2.99 x10^6/uL (3.50-5.40) Hemoglobin 9.8 g/dL (12.0-15.5) 9.0 g/dL (12.0-15.5) Hematocrit 29.3 % (36.0-47.0) 27.7 % (36.0-47.0) Mean Corpuscular Volume 91 fL (79-100) 93 fL (79-100) Mean Corpuscular Hemoglobin 30 pg (25-35) 30 pg (25-35) Mean Corpuscular Hemoglobin Concent 33 g/dL (31-37) 33 g/dL (31-37) Red Cell Distribution Width 16.8 % (11.5-14.5) 16.4 % (11.5-14.5) Platelet Count 201 x10^3/uL (140-400) 188 x10^3/uL (140-400) Neutrophils (%) (Auto) 66 % (31-73) 70 % (31-73) Lymphocytes (%) (Auto) 25 % (24-48) 22 % (24-48) Monocytes (%) (Auto) 8 % (0-9) 6 % (0-9) Eosinophils (%) (Auto) 1 % (0-3) 2 % (0-3) Basophils (%) (Auto) 1 % (0-3) 1 % (0-3) Neutrophils # (Auto) 3.9 x10^3/uL (1.8-7.7) 3.4 x10^3/uL (1.8-7.7) Lymphocytes # (Auto) 1.5 x10^3/uL (1.0-4.8) 1.1 x10^3/uL (1.0-4.8) Monocytes # (Auto) 0.5 x10^3/uL (0.0-1.1) 0.3 x10^3/uL (0.0-1.1) Eosinophils # (Auto) 0.0 x10^3/uL (0.0-0.7) 0.1 x10^3/uL (0.0-0.7) Basophils # (Auto) 0.1 x10^3/uL (0.0-0.2) 0.0 x10^3/uL (0.0-0.2) Urine Collection Type Void Urine Color Yellow Urine Clarity Clear Urine pH 7.5 Urine Specific Emerson <=1.005 Urine Protein Negative mg/dL (NEG-TRACE) Urine Glucose (UA) Negative mg/dL (NEG) Urine Ketones (Stick) Negative mg/dL (NEG) Urine Blood Negative (NEG) Urine Nitrite Negative (NEG) Urine Bilirubin Negative (NEG) Urine Urobilinogen Dipstick 0.2 mg/dL (0.2 mg/dL) Urine Leukocyte Esterase Negative (NEG) Urine RBC 0 /HPF (0-2) Urine WBC 1-4 /HPF (0-4) Urine Squamous Epithelial Cells Few /LPF Urine Bacteria Few /HPF (0-FEW) Urine Hyaline Casts Occasional /HPF Sodium Level 138 mmol/L (136-145) 140 mmol/L (136-145) Potassium Level 4.6 mmol/L (3.5-5.1) 4.7 mmol/L (3.5-5.1) Chloride Level 100 mmol/L (98-107) 105 mmol/L (98-107) Carbon Dioxide Level 32 mmol/L (21-32) 27 mmol/L (21-32) Anion Gap 6 (6-14) 8 (6-14) Blood Urea Nitrogen 64 mg/dL (7-20) 58 mg/dL (7-20) Creatinine 3.1 mg/dL (0.6-1.0) 2.5 mg/dL (0.6-1.0) Estimated GFR (Cockcroft-Gault) 17.4 22.4 BUN/Creatinine Ratio 21 (6-20) 23 (6-20) Glucose Level 92 mg/dL (70-99) 95 mg/dL (70-99) Calcium Level 10.0 mg/dL (8.5-10.1) 8.9 mg/dL (8.5-10.1) Total Bilirubin 0.4 mg/dL (0.2-1.0) 0.4 mg/dL (0.2-1.0) Aspartate Amino Transf (AST/SGOT) 23 U/L (15-37) 21 U/L (15-37) Alanine Aminotransferase (ALT/SGPT) 14 U/L (14-59) 14 U/L (14-59) Alkaline Phosphatase 118 U/L (46-116) 97 U/L (46-116) Troponin I Quantitative < 0.017 ng/mL (0.000-0.055) Total Protein 7.5 g/dL (6.4-8.2) 6.3 g/dL (6.4-8.2) Albumin 3.8 g/dL (3.4-5.0) 3.1 g/dL (3.4-5.0) Albumin/Globulin Ratio 1.0 (1.0-1.7) 1.0 (1.0-1.7) Laboratory Tests Test 12/10/18 20:10 12/10/18 20:30 12/10/18 20:55 12/11/18 10:00 White Blood Count 6.0 x10^3/uL (4.0-11.0) 4.9 x10^3/uL (4.0-11.0) Red Blood Count 3.21 x10^6/uL (3.50-5.40) 2.99 x10^6/uL (3.50-5.40) Hemoglobin 9.8 g/dL (12.0-15.5) 9.0 g/dL (12.0-15.5) Hematocrit 29.3 % (36.0-47.0) 27.7 % (36.0-47.0) Mean Corpuscular Volume 91 fL (79-100) 93 fL (79-100) Mean Corpuscular Hemoglobin 30 pg (25-35) 30 pg (25-35) Mean Corpuscular Hemoglobin Concent 33 g/dL (31-37) 33 g/dL (31-37) Red Cell Distribution Width 16.8 % (11.5-14.5) 16.4 % (11.5-14.5) Platelet Count 201 x10^3/uL (140-400) 188 x10^3/uL (140-400) Neutrophils (%) (Auto) 66 % (31-73) 70 % (31-73) Lymphocytes (%) (Auto) 25 % (24-48) 22 % (24-48) Monocytes (%) (Auto) 8 % (0-9) 6 % (0-9) Eosinophils (%) (Auto) 1 % (0-3) 2 % (0-3) Basophils (%) (Auto) 1 % (0-3) 1 % (0-3) Neutrophils # (Auto) 3.9 x10^3/uL (1.8-7.7) 3.4 x10^3/uL (1.8-7.7) Lymphocytes # (Auto) 1.5 x10^3/uL (1.0-4.8) 1.1 x10^3/uL (1.0-4.8) Monocytes # (Auto) 0.5 x10^3/uL (0.0-1.1) 0.3 x10^3/uL (0.0-1.1) Eosinophils # (Auto) 0.0 x10^3/uL (0.0-0.7) 0.1 x10^3/uL (0.0-0.7) Basophils # (Auto) 0.1 x10^3/uL (0.0-0.2) 0.0 x10^3/uL (0.0-0.2) Urine Collection Type Void Urine Color Yellow Urine Clarity Clear Urine pH 7.5 Urine Specific Emerson <=1.005 Urine Protein Negative mg/dL (NEG-TRACE) Urine Glucose (UA) Negative mg/dL (NEG) Urine Ketones (Stick) Negative mg/dL (NEG) Urine Blood Negative (NEG) Urine Nitrite Negative (NEG) Urine Bilirubin Negative (NEG) Urine Urobilinogen Dipstick 0.2 mg/dL (0.2 mg/dL) Urine Leukocyte Esterase Negative (NEG) Urine RBC 0 /HPF (0-2) Urine WBC 1-4 /HPF (0-4) Urine Squamous Epithelial Cells Few /LPF Urine Bacteria Few /HPF (0-FEW) Urine Hyaline Casts Occasional /HPF Sodium Level 138 mmol/L (136-145) 140 mmol/L (136-145) Potassium Level 4.6 mmol/L (3.5-5.1) 4.7 mmol/L (3.5-5.1) Chloride Level 100 mmol/L (98-107) 105 mmol/L (98-107) Carbon Dioxide Level 32 mmol/L (21-32) 27 mmol/L (21-32) Anion Gap 6 (6-14) 8 (6-14) Blood Urea Nitrogen 64 mg/dL (7-20) 58 mg/dL (7-20) Creatinine 3.1 mg/dL (0.6-1.0) 2.5 mg/dL (0.6-1.0) Estimated GFR (Cockcroft-Gault) 17.4 22.4 BUN/Creatinine Ratio 21 (6-20) 23 (6-20) Glucose Level 92 mg/dL (70-99) 95 mg/dL (70-99) Calcium Level 10.0 mg/dL (8.5-10.1) 8.9 mg/dL (8.5-10.1) Total Bilirubin 0.4 mg/dL (0.2-1.0) 0.4 mg/dL (0.2-1.0) Aspartate Amino Transf (AST/SGOT) 23 U/L (15-37) 21 U/L (15-37) Alanine Aminotransferase (ALT/SGPT) 14 U/L (14-59) 14 U/L (14-59) Alkaline Phosphatase 118 U/L (46-116) 97 U/L (46-116) Troponin I Quantitative < 0.017 ng/mL (0.000-0.055) Total Protein 7.5 g/dL (6.4-8.2) 6.3 g/dL (6.4-8.2) Albumin 3.8 g/dL (3.4-5.0) 3.1 g/dL (3.4-5.0) Albumin/Globulin Ratio 1.0 (1.0-1.7) 1.0 (1.0-1.7) EFREN ARAMBULA MD Dec 11, 2018 18:00
[2018-12-11 19:30] VITALS: BP 112/54
[2018-12-11 23:20] VITALS: BP 144/72
[2018-12-12] MEDS: IV NORMAL SALINE 1000ML BAG 1,000 ML IV SCH ×3 (01:24→21:03)
[2018-12-12 03:41] VITALS: BP 118/60
[2018-12-12 05:16] LABS: CALCIUM 8.5 mg/dL (8.5-10.1); CREATININE 2.2 mg/dL (0.6-1.0); GFR 25.9; POTASSIUM 4.5 mmol/L (3.5-5.1)
[2018-12-12 07:52] VITALS: BP 147/75
[2018-12-12] MEDS: ASPIRIN CHEWABLE 81 MG TABLET. PO SCH (08:38)
--- NOTE | 2018-12-12 08:59 | PN ---
DATE: 12/12/2018 ROOM: 670. SUBJECTIVE: The patient is awake, alert, sitting in chair and it is cold and blanket was gotten for her. She is getting ready to eat breakfast. She has ongoing dizziness, which still on description to me is most consistent with benign positional vertigo as it happens and is over in a few seconds and is more associated with imbalance and near syncope. She is on telemetry monitoring. OBJECTIVE: VITAL SIGNS: Stable. She is afebrile. CHEST: Clear. HEART: Regular. ABDOMEN: Benign. NEUROLOGIC: Nonfocal. Creatinine has decreased again this morning with hydration, suggesting at least some dehydration as an etiology; however, the patient states she has been drinking large amounts of fluid at home with nearly clear urine on urination. IMPRESSION: 1. Dizziness with falls. 2. Acute kidney injury. PLAN: Continue hydration. Renal help appreciated. Neurology help appreciated. Therapy ongoing. LIANG WILDER MD DR: YAJAIRA/korin JOB#: [id number] / [id number]
[2018-12-12 11:21] VITALS: BP 133/64
--- NOTE | 2018-12-12 12:19 | PDOC ---
Renal-Progress Notes Subjective Notes Notes NO NEW COMPLAINTS History of Present Illness Hx of present illness STABLE Vitals Vitals Vital Signs Date Time Temp Pulse Resp B/P (MAP) Pulse Ox O2 Delivery O2 Flow Rate FiO2 12/12/18 11:21 97.7 85 18 133/64 (87) 96 Room Air 97.7 Weight Weight [ ] I.O. Intake and Output Intake and Output 12/12/18 07:00 Intake Total 720 ml Balance 720 ml Intake Oral 720 ml # Voids 4 Labs Labs Laboratory Tests Test 12/12/18 03:50 Sodium Level 143 mmol/L (136-145) Potassium Level 4.5 mmol/L (3.5-5.1) Chloride Level 109 mmol/L (98-107) Carbon Dioxide Level 24 mmol/L (21-32) Anion Gap 10 (6-14) Blood Urea Nitrogen 48 mg/dL (7-20) Creatinine 2.2 mg/dL (0.6-1.0) Estimated GFR (Cockcroft-Gault) 25.9 Glucose Level 90 mg/dL (70-99) Calcium Level 8.5 mg/dL (8.5-10.1) Review of Systems Constitutional: yes: alert, oriented Ears/Nose/Throat: Yes: no symptom reported Eyes: Yes: no symptom reported Pulmonary: Yes no symptom reported Cardiovascular: Yes no symptom reported Gastrointestional: Yes: no symptom reported Genitourinary: Yes: no symptom reported Skin: Yes no symptom reported Psychiatric/Neurological: Yes: weakness Endocrine: Yes: no symptom reported Physical Exam General Appearance: no apparent distress Skin: warm Respiratory: bilateral CTA Heart: S1S2, RRR Abdomen: soft, bowel sounds present Genitourinary: bladder flat Extremities: pulses present Neurology: alert Musculoskeletal: Other Assessment Assessment IMP HYPOTENSION-BETTER NEAR SYNCOPE MARCI WITH CR OF IMPROVED TO 2.2 CKD STAGE 3 WITH CR OF 1.5 TO 2.0 PLAN RENAL SONOGRAM NEG EXCEPT FOR CMRD HYDRATION UA NEG FOR NEPHRITIS SYNCOPE WORK UP WILL FOLLOW LESIA RODRIGUEZ MD Dec 12, 2018 12:19
--- NOTE | 2018-12-12 12:23 | NUR ---
SW following pt. PT/OT recommends home health. SW will arrange HH if ordered by Physician.
--- NOTE | 2018-12-12 15:17 | RAD ---
MRI Brain without contrast History: Persistent dizziness and weakness Technique: Multiplanar, multisequential noncontrast MR imaging was performed of the brain. Comparison: January 06, 2015 Findings: There is some motion degradation. There is no evidence of recent infarct or cytotoxic edema. Ventricular size is within normal limits. There is [id number] generalized supratentorial atrophy.There is no significant midline shift, intraaxial mass effect, or focal abnormal extra-axial fluid collection. There is no significant signal abnormality of the brain parenchyma. There is preservation of the major intracranial flow-voids at the skull base. The mastoid air cells are aerated. The cerebellar tonsils are normal in location. There is no significant abnormality of the pineal gland. There is mostly the sella. There is patchy very mild ethmoid air cell mucosal thickening, also very mild left sphenoid sinus mucosal thickening. There has been lens surgery bilaterally. There is preserved marrow signal of the clivus. There is degenerative disc disease of visualized C3-4 and C4-5 levels, also spondylosis at these levels. Impression: 1. There is no evidence of recent infarct or intracranial mass effect. 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 Electronically signed by: Jamison Swift MD (12/12/2018 3:14 PM) [id number]
[2018-12-12 15:46] VITALS: BP 166/86
--- NOTE | 2018-12-12 16:59 | PDOC ---
PROGRESS NOTES Assessment Assessment Dizziness x 1 month. Vertigo x 1 month. Light headedness x 1 month. Generalized weakness. Tremors. Renal failure. DM. HTN. COPD. CHF. Anemia. Lung cancer. No evidence of acute CVA this time. RECOMMENDATIONS/PLAN: Treat medical diseases. Continue ASA 81 mg daily. OT/PT. FU with PCP. History of Present Illness This is an 83-y-old AA female patient with above medical diseases has been having symptoms of dizziness, vertigo, light headiness for about 1 month. She stated her symptoms were persistent which resulted her 2 falls recently. Past Medical History Cardiovascular: No pertinent hx, HTN Pulmonary: COPD, Other CENTRAL NERVOUS SYSTEM: Other GI: Diverticulosis Heme/Onc: Cancer Hepatobiliary: No pertinent hx Psych: No pertinent hx Musculoskeletal: low back pain, Osteoarthritis, Other Rheumatologic: No pertinent hx Infectious disease: No pertinent hx Renal/: No pertinent hx Endocrine: No pertinent hx Past Surgical History Appendectomy, Cataract Removal, Total hip replacement, Other Family History Coronary Artery Disease Allergies Coded Allergies: tomato (Verified Allergy, Severe, 09/08/16) strawberry (Verified Allergy, Intermediate, 09/07/16) MEDICATIONS: Refer to [facility] SOCIAL HISTORY: Denies current smoking, drinking, and illicit drug use. REVIEW OF SYSTEMS: Constitutional: Obesity. Head: No traumatic brain or head injury. Skin: No edema, or rash. Ear: No infection. Eyes: No vision loss or color blindness. Nose: No bleeding or purulent discharges. Hearing: Mild hearing decrease. Neck: No injury. Breast: No history of cancer, masses,or discharges. Cardiac: HTN, HLD. Pulmonary: COPD. GI: No GI ulcer, GI bleeding. Urinary/genital: CKD Endocrinologic: Diabetes Mellitus. Skeletomuscular: Generalized weakness. Neurological: see HP. Psychiatric: Denies drug use/abuse. Otherwise, not [id number] review of systems. PHYSICAL EXAMINATION: General appearance is in subacute distress. HEENT: Normocephalic and nontraumatic. Eyes, nose, ears, and throat are unremarkable. Neck is supple. No lymphadenopathy. No crepitus. Cardiovascular: S1, S2, regular rate and rhythm. Pulmonary: Clear to auscultation bilaterally. Abdomen: Bowel sounds are positive. Abdomen is soft, nontender, and nondistended. Extremities: No rash, lesions, or edema. No restriction of range of motion NEUROLOGICAL EXAMINATION: Alert Partially oriented to time, place and person. PERRL. EOMI. CN: no focal findings. Muscle tone: within normal. Muscle strength: 4+ DTR: 2- Plantar reflex: Flexor response bilaterally Gait: not examined in bed. Sensory exam: no abnormal findings. No cerebellar signs elicited. F-T-N test fine. Objective Objective Vital Signs Date Time Temp Pulse Resp B/P (MAP) Pulse Ox O2 Delivery O2 Flow Rate FiO2 12/12/18 15:46 97.7 98 18 166/86 (112) 98 Room Air 97.7 Intake and Output 12/12/18 06:59 Intake Total 720 ml Balance 720 ml Intake Oral 720 ml # Voids 4 Vitals Signs Vitals VS - Last 72 Hours, by Label Date Time Temp Pulse Resp B/P (MAP) Pulse Ox O2 Delivery O2 Flow Rate FiO2 12/12/18 15:46 97.7 98 18 166/86 (112) 98 Room Air 97.7 12/12/18 11:21 97.7 85 18 133/64 (87) 96 Room Air 97.7 12/12/18 07:52 97.8 84 18 147/75 (99) 97 Room Air 97.8 12/12/18 03:41 97.7 83 18 118/60 (79) 100 Room Air 97.7 12/11/18 23:20 97.6 79 18 144/72 (96) 96 Room Air 97.6 12/11/18 20:00 Room Air 12/11/18 19:30 97.8 75 18 112/54 (73) 99 Room Air 97.8 12/11/18 15:17 98.6 73 18 106/61 (76) 100 Room Air 98.6 12/11/18 11:30 97.6 77 18 105/65 (78) 97 Room Air 97.6 12/11/18 08:00 Room Air 12/11/18 07:32 97.6 64 16 97/52 (67) 97 Room Air 97.6 Laboratory Laboratory Laboratory Tests Test 12/12/18 03:50 Sodium Level 143 mmol/L (136-145) Potassium Level 4.5 mmol/L (3.5-5.1) Chloride Level 109 mmol/L (98-107) Carbon Dioxide Level 24 mmol/L (21-32) Anion Gap 10 (6-14) Blood Urea Nitrogen 48 mg/dL (7-20) Creatinine 2.2 mg/dL (0.6-1.0) Estimated GFR (Cockcroft-Gault) 25.9 Glucose Level 90 mg/dL (70-99) Calcium Level 8.5 mg/dL (8.5-10.1) Comment Review of Relevant I have reviewed the following items maria (where applicable) has been applied. EFREN ARAMBULA MD Dec 12, 2018 16:59
[2018-12-12 19:44] VITALS: BP 138/66
[2018-12-12 23:20] VITALS: BP 143/78
[2018-12-13 03:27] VITALS: BP 143/74
[2018-12-13 05:47] LABS: CALCIUM 8.9 mg/dL (8.5-10.1); CREATININE 1.7 mg/dL (0.6-1.0); GFR 34.9; POTASSIUM 4.3 mmol/L (3.5-5.1)
[2018-12-13] MEDS: IV NORMAL SALINE 1000ML BAG 1,000 ML IV SCH (06:35)
[2018-12-13 07:00] VITALS: BP 140/72
[2018-12-13] MEDS: ASPIRIN CHEWABLE 81 MG TABLET. PO SCH (08:50)
[2018-12-13 11:39] VITALS: BP 140/74
--- NOTE | 2018-12-13 14:37 | PDOC ---
PROGRESS NOTES Assessment Assessment Dizziness x 1 month. Vertigo x 1 month. Light headedness x 1 month. Generalized weakness. Tremors. Renal failure. DM. HTN. COPD. CHF. Anemia. Lung cancer. No evidence of acute CVA this time. RECOMMENDATIONS/PLAN: Treat medical diseases. Continue ASA 81 mg daily. OT/PT. FU with PCP. History of Present Illness This is an 83-y-old AA female patient with above medical diseases has been having symptoms of dizziness, vertigo, light headiness for about 1 month. She stated her symptoms were persistent which resulted her 2 falls recently. Past Medical History Cardiovascular: No pertinent hx, HTN Pulmonary: COPD, Other CENTRAL NERVOUS SYSTEM: Other GI: Diverticulosis Heme/Onc: Cancer Hepatobiliary: No pertinent hx Psych: No pertinent hx Musculoskeletal: low back pain, Osteoarthritis, Other Rheumatologic: No pertinent hx Infectious disease: No pertinent hx Renal/: No pertinent hx Endocrine: No pertinent hx Past Surgical History Appendectomy, Cataract Removal, Total hip replacement, Other Family History Coronary Artery Disease Allergies Coded Allergies: tomato (Verified Allergy, Severe, 09/08/16) strawberry (Verified Allergy, Intermediate, 09/07/16) MEDICATIONS: Refer to [facility] SOCIAL HISTORY: Denies current smoking, drinking, and illicit drug use. REVIEW OF SYSTEMS: Constitutional: Obesity. Head: No traumatic brain or head injury. Skin: No edema, or rash. Ear: No infection. Eyes: No vision loss or color blindness. Nose: No bleeding or purulent discharges. Hearing: Mild hearing decrease. Neck: No injury. Breast: No history of cancer, masses,or discharges. Cardiac: HTN, HLD. Pulmonary: COPD. GI: No GI ulcer, GI bleeding. Urinary/genital: CKD Endocrinologic: Diabetes Mellitus. Skeletomuscular: Generalized weakness. Neurological: see HP. Psychiatric: Denies drug use/abuse. Otherwise, not [id number] review of systems. PHYSICAL EXAMINATION: General appearance is in subacute distress. HEENT: Normocephalic and nontraumatic. Eyes, nose, ears, and throat are unremarkable. Neck is supple. No lymphadenopathy. No crepitus. Cardiovascular: S1, S2, regular rate and rhythm. Pulmonary: Clear to auscultation bilaterally. Abdomen: Bowel sounds are positive. Abdomen is soft, nontender, and nondistended. Extremities: No rash, lesions, or edema. No restriction of range of motion NEUROLOGICAL EXAMINATION: Alert Partially oriented to time, but knew place and person. PERRL. EOMI. CN: no focal findings. Muscle tone: within normal. Muscle strength: 4+ DTR: 2- Plantar reflex: Flexor response bilaterally Gait: not examined in bed. Sensory exam: no abnormal findings. No cerebellar signs elicited. F-T-N test fine. Objective Objective Vital Signs Date Time Temp Pulse Resp B/P (MAP) Pulse Ox O2 Delivery O2 Flow Rate FiO2 12/13/18 11:39 97.8 105 18 140/74 (96) 98 Room Air 97.8 Intake and Output 12/13/18 07:00 Intake Total 790 ml Balance 790 ml Intake Oral 790 ml # Voids 3 Vitals Signs Vitals VS - Last 72 Hours, by Label Date Time Temp Pulse Resp B/P (MAP) Pulse Ox O2 Delivery O2 Flow Rate FiO2 12/13/18 11:39 97.8 105 18 140/74 (96) 98 Room Air 97.8 12/13/18 08:00 Room Air 12/13/18 07:00 98.3 100 18 140/72 (94) 99 Room Air 98.3 12/13/18 03:27 97.5 98 18 143/74 (97) 100 Room Air 97.5 12/12/18 23:20 98.4 103 20 143/78 (99) 98 Room Air 98.4 12/12/18 20:00 Room Air 12/12/18 19:44 98.0 95 18 138/66 (90) 97 Room Air 98.0 12/12/18 15:46 97.7 98 18 166/86 (112) 98 Room Air 97.7 12/12/18 11:21 97.7 85 18 133/64 (87) 96 Room Air 97.7 12/12/18 07:52 97.8 84 18 147/75 (99) 97 Room Air 97.8 Laboratory Laboratory Laboratory Tests Test 12/13/18 04:40 Sodium Level 147 mmol/L (136-145) Potassium Level 4.3 mmol/L (3.5-5.1) Chloride Level 115 mmol/L (98-107) Carbon Dioxide Level 22 mmol/L (21-32) Anion Gap 10 (6-14) Blood Urea Nitrogen 32 mg/dL (7-20) Creatinine 1.7 mg/dL (0.6-1.0) Estimated GFR (Cockcroft-Gault) 34.9 Glucose Level 78 mg/dL (70-99) Calcium Level 8.9 mg/dL (8.5-10.1) Comment Review of Relevant I have reviewed the following items maria (where applicable) has been applied. EFREN ARAMBULA MD Dec 13, 2018 14:37
[2018-12-13 15:36] VITALS: BP 144/74
--- NOTE | 2018-12-13 16:11 | PDOC ---
GENERAL General: vss and afebrile. creatinine has decreased to 1.7 this am and is approaching baseline. iv fluids continue. therapy feels safe for dc to home. exam stable. recheck labs am with possible dc to home then. VITAL SIGNS/I&O Vital Signs/I&O: Vital Signs Date Time Temp Pulse Resp B/P (MAP) Pulse Ox O2 Delivery O2 Flow Rate FiO2 12/13/18 15:36 98.1 102 18 144/74 (97) 98 Room Air 98.1 I & O 12/12/18 12/12/18 12/13/18 14:59 22:59 06:59 Intake Total 240 ml 400 ml 150 ml Balance 240 ml 400 ml 150 ml ALLERGIES Allergies: Allergies Coded Allergies Type Severity Reaction Last Updated Verified tomato Allergy Severe 09/08/16 Yes strawberry Allergy Intermediate 09/07/16 Yes LAB Lab: Laboratory Tests Test 12/13/18 04:40 Sodium Level 147 mmol/L (136-145) H Potassium Level 4.3 mmol/L (3.5-5.1) Chloride Level 115 mmol/L (98-107) H Carbon Dioxide Level 22 mmol/L (21-32) Anion Gap 10 (6-14) Blood Urea Nitrogen 32 mg/dL (7-20) H Creatinine 1.7 mg/dL (0.6-1.0) H Estimated GFR (Cockcroft-Gault) 34.9 Glucose Level 78 mg/dL (70-99) Calcium Level 8.9 mg/dL (8.5-10.1) Laboratory Tests 12/13/18 04:40 LIANG WILDER MD Dec 13, 2018 16:11
--- NOTE | 2018-12-13 16:24 | PDOC ---
Renal-Progress Notes Subjective Notes Notes NONE History of Present Illness Hx of present illness NO CHANGE Vitals Vitals Vital Signs Date Time Temp Pulse Resp B/P (MAP) Pulse Ox O2 Delivery O2 Flow Rate FiO2 12/13/18 15:36 98.1 102 18 144/74 (97) 98 Room Air 98.1 Weight Weight [ ] I.O. Intake and Output Intake and Output 12/13/18 06:59 Intake Total 790 ml Balance 790 ml Intake Oral 790 ml # Voids 3 Labs Labs Laboratory Tests Test 12/13/18 04:40 Sodium Level 147 mmol/L (136-145) Potassium Level 4.3 mmol/L (3.5-5.1) Chloride Level 115 mmol/L (98-107) Carbon Dioxide Level 22 mmol/L (21-32) Anion Gap 10 (6-14) Blood Urea Nitrogen 32 mg/dL (7-20) Creatinine 1.7 mg/dL (0.6-1.0) Estimated GFR (Cockcroft-Gault) 34.9 Glucose Level 78 mg/dL (70-99) Calcium Level 8.9 mg/dL (8.5-10.1) Review of Systems Constitutional: yes: alert, oriented Ears/Nose/Throat: Yes: no symptom reported Eyes: Yes: no symptom reported Pulmonary: Yes no symptom reported Cardiovascular: Yes no symptom reported Gastrointestional: Yes: no symptom reported Genitourinary: Yes: no symptom reported Skin: Yes no symptom reported Psychiatric/Neurological: Yes: weakness Endocrine: Yes: no symptom reported Physical Exam General Appearance: no apparent distress Skin: warm Respiratory: bilateral CTA Heart: S1S2, RRR Abdomen: soft, bowel sounds present Genitourinary: bladder flat Extremities: pulses present Neurology: alert Musculoskeletal: Other Assessment Assessment IMP HYPOTENSION-BETTER NEAR SYNCOPE MARCI WITH CR OF IMPROVED TO 1.7 CKD STAGE 3 WITH CR OF 1.5 TO 2.0 MILD HYPERNATREMIA PLAN RENAL SONOGRAM NEG EXCEPT FOR CMRD HYDRATION - CHANGE TO HYPOTONIC SALINE UA NEG FOR NEPHRITIS WILL FOLLOW LESIA RODRIGUEZ MD Dec 13, 2018 16:24
[2018-12-13] MEDS: IV 1/2 NORMAL SALINE 1,000 ML IV SCH (18:00)
[2018-12-13 19:15] VITALS: BP 159/80
[2018-12-13 23:15] VITALS: BP 163/88
[2018-12-14 03:15] VITALS: BP 132/72
[2018-12-14] MEDS: IV 1/2 NORMAL SALINE 1,000 ML IV SCH (06:25)
[2018-12-14 07:50] VITALS: BP 134/78
[2018-12-14] MEDS: ASPIRIN CHEWABLE 81 MG TABLET. PO SCH (09:25)
[2018-12-14 10:27] LABS: CALCIUM 9.1 mg/dL (8.5-10.1); CREATININE 1.5 mg/dL (0.6-1.0); GFR 40.3; POTASSIUM 4.3 mmol/L (3.5-5.1)
[2018-12-14 11:14] VITALS: BP 151/82
--- NOTE | 2018-12-14 11:20 | PDOC ---
Renal-Progress Notes Subjective Notes Notes NOTHING NEW History of Present Illness Hx of present illness STABLE Vitals Vitals Vital Signs Date Time Temp Pulse Resp B/P (MAP) Pulse Ox O2 Delivery O2 Flow Rate FiO2 12/14/18 11:14 97.7 104 18 151/82 (105) 97 Room Air 97.7 12/14/18 08:00 2.0 Weight Weight [ ] I.O. Intake and Output Intake and Output 12/14/18 07:00 Intake Total 1000 ml Balance 1000 ml Intake Oral 1000 ml # Voids 3 # Bowel Movements 1 Labs Labs Laboratory Tests Test 12/14/18 08:53 Sodium Level 141 mmol/L (136-145) Potassium Level 4.3 mmol/L (3.5-5.1) Chloride Level 110 mmol/L (98-107) Carbon Dioxide Level 22 mmol/L (21-32) Anion Gap 9 (6-14) Blood Urea Nitrogen 25 mg/dL (7-20) Creatinine 1.5 mg/dL (0.6-1.0) Estimated GFR (Cockcroft-Gault) 40.3 Glucose Level 107 mg/dL (70-99) Calcium Level 9.1 mg/dL (8.5-10.1) Review of Systems Constitutional: yes: alert, oriented Ears/Nose/Throat: Yes: no symptom reported Eyes: Yes: no symptom reported Pulmonary: Yes no symptom reported Cardiovascular: Yes no symptom reported Gastrointestional: Yes: no symptom reported Genitourinary: Yes: no symptom reported Skin: Yes no symptom reported Psychiatric/Neurological: Yes: weakness Endocrine: Yes: no symptom reported Physical Exam General Appearance: no apparent distress Skin: warm Respiratory: bilateral CTA Heart: S1S2, RRR Abdomen: soft, bowel sounds present Genitourinary: bladder flat Extremities: pulses present Neurology: alert Musculoskeletal: Other Assessment Assessment IMP HYPOTENSION-BETTER NEAR SYNCOPE MARCI WITH CR OF IMPROVED TO 1.5 CKD STAGE 3 WITH CR OF 1.5 TO 2.0 MILD HYPERNATREMIA-RESOLVED PLAN RENAL SONOGRAM NEG EXCEPT FOR CMRD STOP IVF'S UA NEG FOR NEPHRITIS WILL FOLLOW LESIA RODRIGUEZ MD Dec 14, 2018 11:20
--- NOTE | 2018-12-14 12:00 | PDOC ---
Provider Note Provider Note [id number] LAVONNE HENRIQUEZ MD Dec 14, 2018 12:00
--- NOTE | 2018-12-14 12:18 | DS ---
DATE OF DISCHARGE: 12/14/2018 HOSPITAL SUMMARY: An 83-year-old black female with a history of COPD, came in with some hypotension and acute renal failure. Her creatinine on admission was 3.1, BUN 64. Normal baseline is around 1.5 creatinine. Creatinine improved daily down to 1.5 on the morning of discharge with a BUN of 25. Electrolytes were normal as was the rest of the chemistry profile. CBC showed hemoglobin of 9.8 consistent with anemia of chronic disease and the urine was clear. There were no cultures obtained. CT head and chest x-ray were clear and renal sonogram showed mild bilateral renal atrophy symmetrically, but no hydronephrosis. The MRI was normal as well. She was given IV fluids to support her blood pressure and blood pressure has remained very good with good urine output. She is feeling better and is comfortable to be discharged and followed as an outpatient at this point. FINAL DIAGNOSES: 1. Acute renal failure secondary to drug-induced hypotension, resolved. 2. Chronic kidney disease 3, stable. OPERATIONS, PROCEDURES, COMPLICATIONS: None. CONSULTATIONS: Dr. Dodd and Dr. Nava. DISPOSITION: Home meds remain the same except no more Lasix, which probably caused her diuresis and dehydration and hypotension. Office followup in [address] Brenner in regards to the anemia and renal function. LAVONNE HENRIQUEZ MD DR: XIN/korin JOB#: [id number] / [id number]
[2018-12-14] MEDS ORDERED: METOPROLOL SUCC 24HR ER 25 MG TAB.ER.24H. PO SCH (12:30)
[2018-12-14] MEDS ORDERED: ROFLUMILAST 500 MCG TABLET. PO SCH (12:30)
[2018-12-14] MEDS ORDERED: SODIUM BICARBONATE 650 MG TABLET. PO SCH (12:30)
[2018-12-14] MEDS ORDERED: ASPIRIN ENTERIC COATED 81 MG TABLET.DR. PO SCH (12:30)
[2018-12-14 13:20] VITALS: BP 151/82
[2018-12-14] MEDS ORDERED: IPRATRPIUM/ALBUTEROL 0.5/2.5MG 3 ML NEBU. NEB SCH (14:00)
--- NOTE | 2018-12-14 15:03 | PDOC ---
PROGRESS NOTES Assessment Assessment Dizziness x 1 month. Vertigo x 1 month. Light headedness x 1 month. Generalized weakness. Tremors. Renal failure. DM. HTN. COPD. CHF. Anemia. Lung cancer. No evidence of acute CVA this time. RECOMMENDATIONS/PLAN: Treat medical diseases. Continue ASA 81 mg daily. OT/PT. FU with PCP. History of Present Illness This is an 83-y-old AA female patient with above medical diseases has been having symptoms of dizziness, vertigo, light headiness for about 1 month. She stated her symptoms were persistent which resulted her 2 falls recently. She is able to walk with a walker in room and no dizziness on 12/14/18.. Past Medical History Cardiovascular: No pertinent hx, HTN Pulmonary: COPD, Other CENTRAL NERVOUS SYSTEM: Other GI: Diverticulosis Heme/Onc: Cancer Hepatobiliary: No pertinent hx Psych: No pertinent hx Musculoskeletal: low back pain, Osteoarthritis, Other Rheumatologic: No pertinent hx Infectious disease: No pertinent hx Renal/: No pertinent hx Endocrine: No pertinent hx Past Surgical History Appendectomy, Cataract Removal, Total hip replacement, Other Family History Coronary Artery Disease Allergies Coded Allergies: tomato (Verified Allergy, Severe, 09/08/16) strawberry (Verified Allergy, Intermediate, 09/07/16) MEDICATIONS: Refer to [facility] SOCIAL HISTORY: Denies current smoking, drinking, and illicit drug use. REVIEW OF SYSTEMS: Constitutional: Obesity. Head: No traumatic brain or head injury. Skin: No edema, or rash. Ear: No infection. Eyes: No vision loss or color blindness. Nose: No bleeding or purulent discharges. Hearing: Mild hearing decrease. Neck: No injury. Breast: No history of cancer, masses,or discharges. Cardiac: HTN, HLD. Pulmonary: COPD. GI: No GI ulcer, GI bleeding. Urinary/genital: CKD Endocrinologic: Diabetes Mellitus. Skeletomuscular: Generalized weakness. Neurological: see HP. Psychiatric: Denies drug use/abuse. Otherwise, not [id number] review of systems. PHYSICAL EXAMINATION: General appearance is in subacute distress. HEENT: Normocephalic and nontraumatic. Eyes, nose, ears, and throat are unremarkable. Neck is supple. No lymphadenopathy. No crepitus. Cardiovascular: S1, S2, regular rate and rhythm. Pulmonary: Clear to auscultation bilaterally. Abdomen: Bowel sounds are positive. Abdomen is soft, nontender, and nondistended. Extremities: No rash, lesions, or edema. No restriction of range of motion NEUROLOGICAL EXAMINATION: Alert Partially oriented to time, but knew place and person. PERRL. EOMI. CN: no focal findings. Muscle tone: within normal. Muscle strength: 4+ DTR: 2- Plantar reflex: Flexor response bilaterally Gait: Able to walk with a walker. Sensory exam: no abnormal findings. No cerebellar signs elicited. F-T-N test fine. Objective Objective Vital Signs Date Time Temp Pulse Resp B/P (MAP) Pulse Ox O2 Delivery O2 Flow Rate FiO2 12/14/18 13:20 104 151/82 12/14/18 11:14 97.7 18 97 Room Air 97.7 12/14/18 08:00 2.0 Intake and Output 12/14/18 06:59 Intake Total 1000 ml Balance 1000 ml Intake Oral 1000 ml # Voids 3 # Bowel Movements 1 Vitals Signs Vitals VS - Last 72 Hours, by Label Date Time Temp Pulse Resp B/P (MAP) Pulse Ox O2 Delivery O2 Flow Rate FiO2 12/14/18 13:20 104 151/82 12/14/18 11:14 97.7 104 18 151/82 (105) 97 Room Air 97.7 12/14/18 08:00 Nasal Cannula 2.0 12/14/18 07:50 97.7 89 17 134/78 (96) 100 Room Air 97.7 12/14/18 03:15 97.8 96 16 132/72 (92) 99 Nasal Cannula 2.0 97.8 12/13/18 23:15 97.8 101 16 163/88 (113) 97 Room Air 97.8 12/13/18 20:00 Room Air 12/13/18 19:15 98.2 101 16 159/80 (106) 98 Room Air 98.2 12/13/18 15:36 98.1 102 18 144/74 (97) 98 Room Air 98.1 12/13/18 11:39 97.8 105 18 140/74 (96) 98 Room Air 97.8 12/13/18 08:00 Room Air 12/13/18 07:00 98.3 100 18 140/72 (94) 99 Room Air 98.3 Laboratory Laboratory Laboratory Tests Test 12/14/18 08:53 Sodium Level 141 mmol/L (136-145) Potassium Level 4.3 mmol/L (3.5-5.1) Chloride Level 110 mmol/L (98-107) Carbon Dioxide Level 22 mmol/L (21-32) Anion Gap 9 (6-14) Blood Urea Nitrogen 25 mg/dL (7-20) Creatinine 1.5 mg/dL (0.6-1.0) Estimated GFR (Cockcroft-Gault) 40.3 Glucose Level 107 mg/dL (70-99) Calcium Level 9.1 mg/dL (8.5-10.1) Medication Medications Current Medications Albuterol/ Ipratropium (Duoneb) 3 ml TID NEB ; Start 12/14/18 at 14:00 Aspirin (Ecotrin) 81 mg [id number] PO ; Start 12/14/18 at 12:30 Metoprolol Succinate (Toprol Xl) 25 mg DAILY PO Last administered on 12/14/18at 13:20; Start 12/14/18 at 12:30 Roflumilast (Daliresp) 500 mcg DAILY PO Last administered on 12/14/18at 13:20; Start 12/14/18 at 12:30 Sodium Bicarbonate (Sodium Bicarbonate) 650 mg DAILY PO Last administered on 12/14/18at 13:20; Start 12/14/18 at 12:30 Sodium Chloride 1,000 ml @ 75 mls/hr [id number] IV Last administered on 12/14/18at 06:25; Start 12/13/18 at 16:30; Stop 12/14/18 at 11:21; Status DC Comment Review of Relevant I have reviewed the following items maria (where applicable) has been applied. EFREN ARAMBULA MD Dec 14, 2018 15:03
== END 2018-12-14 14:45 | disposition home health service (06) | DRG 640 ==
LOC: ER 18:19 → ED HOLD 21:35 → 6 SOUTH 22:14
PROVIDERS: ADMIT Family Medicine; ATTEND Family Medicine
DX: E86.0 Dehydration (principal); N17.0 Acute kidney failure with tubular necrosis; N17.9 Acute kidney failure, unspecified; I13.0 Hypertensive heart and chronic kidney disease with heart failure and stage 1 through stage 4 chronic kidney disease, or unspecified chronic kidney disease; E87.0 Hyperosmolality and hypernatremia; I95.2 Hypotension due to drugs; N18.3 Chronic kidney disease, stage 3 (moderate); F41.9 Anxiety disorder, unspecified; I50.9 Heart failure, unspecified; J44.9 Chronic obstructive pulmonary disease, unspecified; K21.9 Gastro-esophageal reflux disease without esophagitis; H40.9 Unspecified glaucoma; M10.9 Gout, unspecified; K57.90 Diverticulosis of intestine, part unspecified, without perforation or abscess without bleeding; Z96.649 Presence of unspecified artificial hip joint; I25.10 Atherosclerotic heart disease of native coronary artery without angina pectoris; D63.8 Anemia in other chronic diseases classified elsewhere; T50.1X5A Adverse effect of loop [high-ceiling] diuretics, initial encounter; E11.22 Type 2 diabetes mellitus with diabetic chronic kidney disease; Z85.118 Personal history of other malignant neoplasm of bronchus and lung; Z90.49 Acquired absence of other specified parts of digestive tract; Z90.710 Acquired absence of both cervix and uterus; Z91.018 Allergy to other foods; Z87.891 Personal history of nicotine dependence; Z79.82 Long term (current) use of aspirin; Z82.49 Family history of ischemic heart disease and other diseases of the circulatory system; Y92.89 Other specified places as the place of occurrence of the external cause; R25.1 Tremor, unspecified
CPT/HCPCS: 36415; 70450; 70551; 71046; 76770; 80048; 80053; 81001; 84484; 85025; 93005; J7030; J7040; 97110; 97530; 97535; 99285-25; G0378

== ENCOUNTER → 2020-07-16 | Outpatient (CLI) | payer MEDICARE ==
[~2020-07-16] MED LIST changes: -ASPI-612 PO; +ASPI-886 PO; +HYDR-2761 PO; +MECL-75 PO; -MECL25TA3 PO; -NITR0.4T SL; +NITR0.4T24 SL; +POTA20TA4 PO; -POTA20TA82 PO
--- NOTE | 2020-07-16 16:44 | KCIC ---
EXAM: Lumbar spine, 3 views. HISTORY: Pain. COMPARISON: None. FINDINGS: 3 views of the lumbar spine are obtained. There is severe rotatory levoscoliosis of the lum bar spine centered at T2. There is degenerative endplate remodeling with disc space narrowing, osteop hytosis and Schmorl's node formation primarily at the levels of maximum scoliotic concavity. There is minimal multilevel listhesis. There is no acute fracture. There is a right hip arthroplasty. There a re calcified granulomas involving the spleen. There are cholecystectomy clips. IMPRESSION: 1. Severe rotatory scoliosis of the lumbar spine. 2. Multilevel advanced degenerative change involving the lumbar spine. Electronically signed by: Fide Solorio MD (07/16/2020 4:41 PM) [id number]
--- NOTE | 2020-07-16 17:14 | KCIC ---
Exam performed: AP standing view of bilateral knees. HISTORY: Bilateral knee pain DATE OF SERVICE: . COMPARISON: Single AP standing view bilateral knees from 08/09/2018. FINDINGS: Severe joint space narrowing involving bilateral medial and lateral tibiofemoral joint compartment, m ost notable in the lateral left tibiofemoral joint space. Osteophyte formation is seen. There is no a cute fracture or dislocation. IMPRESSION: Similar degenerative changes involving bilateral knee joints as outlined above. No interval change si nce previous exam. Electronically signed by: Ashlee Potter MD (07/16/2020 5:12 PM) [id number]
== END ==
LOC: KCIC 14:32
PROVIDERS: ATTEND Physical Medicine & Rehabilitation
DX: M47.816 Spondylosis without myelopathy or radiculopathy, lumbar region (principal); M17.0 Bilateral primary osteoarthritis of knee; M25.78 Osteophyte, vertebrae; G89.29 Other chronic pain
CPT/HCPCS: 72100; 73565

== ENCOUNTER 2020-09-24 16:05 | Inpatient (IN) | payer MEDICARE, MEDICAID ==
[~2020-09-24] VITALS: Ht 152.4 cm; Wt 70.1 kg
[~2020-09-24 16:05] MED LIST changes: +AMOX1TAB61 PO; +MECL12.582 PO
[2020-09-24] MEDS ORDERED: IV NORMAL SALINE 1000ML BAG 1,000 ML IV ONE (17:15)
--- NOTE | 2020-09-24 17:58 | RAD ---
XR CHEST 1V History: Reason: palptiations / Spl. Instructions: / History: Comparison: July 18, [address] Findings: Increased left midlung masslike opacity. No pleural effusion. No pneumothorax. Normal heart size. Chr onic right-sided rib fractures. Prior granulomatous disease within the chest. Glenohumeral DJD. Posto p changes right lung. Impression: 1. Increased left midlung masslike opacity. Recommend CT with contrast to further evaluate. Electronically signed by: Zeke Tilley DO (09/24/2020 5:55 PM) [facility]
--- NOTE | 2020-09-24 18:12 | PHYS DOC ---
Past Medical History Past Medical History: COPD, Hypertension, Other Additional Past Medical Histor: RIGHT UPPER LOBE LUNG REMOVED (ADILSON BREWER DO) Past Surgical History: Appendectomy, Cholecystectomy, Hip Replacement, Other Additional Past Surgical Histo: BACK, EYES, CAPAL TUNNEL; BREAST (ADILSON BREWER DO) Smoking Status: Former Smoker Alcohol Use: None Drug Use: None (ADILSON BREWER DO) General Adult EDM: Chief Complaint: MULTIPLE COMPLAINTS HPI: HPI: 85-year-old female past medical history of lung cancer with lobectomy (10 yrs ago, no chemo/rad), hypertension, vertigo and COPD presents to the ED after sent in by Dr. Silveira, with daughter who states " this is not my mother, she is not acting right, something is wrong." Daughter reports patient has been sleeping in her bed for the past 2 days and is not getting up to eat or feed herself. Has associated positional dizziness x2 days and intermittent "chest pressure" for the past 4 days. Patient was started on prednisone 3 days ago for a dry cough, unsure if any chest imaging was performed. (ADILSON BREWER DO) Review of Systems: Review of Systems: Constitutional: Denies fever or chills. [] Eyes: Denies change in visual acuity. [] HENT: Denies nasal congestion or sore throat. [] Respiratory: Denies hemoptysis or shortness of breath. [] Cardiovascular: Denies syncope or edema. [] GI: Denies abdominal pain, nausea, vomiting, bloody stools or diarrhea. [] : Denies dysuria or vaginal bleeding Musculoskeletal: Denies back pain or joint pain. [] Integument: Denies rash or diaphoresis Neurologic: Denies headache, neck pain, focal weakness or sensory changes. [] Endocrine: Denies polyuria or polydipsia. [] Lymphatic: Denies swollen glands. [] Psychiatric: Denies depression or anxiety. [] (ADILSON BREWER DO) Heart Score: C/O Chest Pain: No Risk Factors: Risk Factors: DM, Current or recent (<one month) smoker, HTN, HLP, family history of CAD, obesity. Risk Scores: Score 0 - 3: 2.5% MACE over next 6 weeks - Discharge Home Score 4 - 6: 20.3% MACE over next 6 weeks - Admit for Clinical Observation Score 7 - 10: 72.7% MACE over next 6 weeks - Early Invasive Strategies (ADILSON HICKEY DO) C/O Chest Pain: No (HANNAH CONTRERAS MD) Current Medications: Current Medications Medications (Trade) Dose Ordered Sig/Fortunato Start Time Stop Time Status Last Admin Dose Admin Sodium Chloride 1,000 ml @ 1,000 mls/hr 1X ONCE 09/24/20 17:15 09/24/20 18:14 09/24/20 18:08 1,000 MLS/HR (ADILSON BREWER DO) Allergies: Allergies: Allergies Coded Allergies Type Severity Reaction Last Updated Verified tomato Allergy Severe 09/08/16 Yes strawberry Allergy Intermediate 09/07/16 Yes (ADILSON BREWER DO) Physical Exam: PE: Constitutional: Very frail and weak appearing, requires assistance from wheelchair to stretcher HENT: Normocephalic, atraumatic, normal tympanic membranes bilaterally Eyes: PERRLA, EOMI, conjunctiva normal, no discharge, horizontal nystagmus present -seen with movement, Neck: Normal range of motion, supple, no nuchal rigidity or meningismus Cardiovascular: S1/2 present, regular rhythm Lungs & Thorax: Speaking in full sentences, bilateral equal chest rise, no tachypnea or increased work of breathing Abdomen: soft, no tenderness, no rigidity or guarding Skin: Warm, dry, no erythema, no rash. [] Back: No tenderness, no CVA tenderness. [] Extremities: No tenderness, no cyanosis, no unilateral lower extremity edema Neurologic: Alert and oriented X 3, normal motor function, normal sensory function, no focal deficits noted. [] Psychologic: Affect normal, judgement normal, mood normal. [] (ADILSON BREWER DO) Current Patient Data: Vital Signs: Vital Signs Date Time Temp Pulse Resp B/P (MAP) Pulse Ox O2 Delivery O2 Flow Rate FiO2 09/24/20 16:15 98.4 126 16 127/77 (94) 97 Room Air 98.4 (ADILSON BREWER DO) EKG: EKG: Sinus tachycardia 115 beats minute, left axis deviation, normal intervals, T wave inversion aVL, concern for inferiorlateral st segment depressions not seen on July 29, 2020 EKG, questionable aVR elevation, EKG was reviewed at shift change-dr contreras to follow up (ADILSON BREWER DO) Radiology/Procedures: Radiology/Procedures: []IMAGING REPORT Signed PATIENT: JOSE ALFREDO BOWSER ACCOUNT: [id number] : 1935 LOCATION: ER AGE: 85 SEX: F EXAM STATUS: REG ER ORD. PHYSICIAN: ADILSON BREWER DO REASON: palptiations PROCEDURE: PORTABLE CHEST 1V XR CHEST 1V History: Reason: palptiations / Spl. Instructions: / History: Comparison: July 18, [address] Findings: Increased left midlung masslike opacity. No pleural effusion. No pneumothorax. Normal heart size. Chronic right-sided rib fractures. Prior granulomatous disease within the chest. Glenohumeral DJD. Postop changes right lung. Impression: 1. Increased left midlung masslike opacity. Recommend CT with contrast to further evaluate. Electronically signed by: Zeke Tilley DO (09/24/2020 5:55 PM) [facility] DICTATED and SIGNED BY: ZEKE TILLEY DO DATE: 09/24/20 [id number] (ADILSON BREWER DO) Course & Med Decision Making: Course & Med Decision Making Pertinent Labs and Imaging studies reviewed. (See chart for details) Patient presents to the ED very frail appearing but not confused, tachycardic with positional vertigo and chest pressure. Was started on IV fluids. Chest x- ray is concerning for recurrent lung cancer. All labs are pending. Due to shift change patient was signed out to Dr. Contreras for further emergent medical management. We discussed concerning EKG findings and broad differential - sepsis workup pending. Patient was stable at shift change when Dr. Contreras assumed care. (ADILSON BREWER DO) Course & Med Decision Making Accepted care at shift change. Pending labs. Unable to do CTA to rule out PE due to creatinine. Discussed with patient's primary care provider will admit for VQ scan in the morning and continue hydration. (HANNAH CONTRERAS MD) Dragon Disclaimer: Dragon Disclaimer: This electronic medical record was generated, in whole or in part, using a voice recognition dictation system. (ADILSON BREWER DO) Departure Departure Impression: Primary Impression: Fatigue Additional Impressions: Vertigo Shortness of breath Lung mass Disposition: ADMITTED INPATIENT Admitting Physician: Liang Brenner (HANNAH CONTRERAS MD) Condition: GUARDED Referrals: LIANG BRENNER MD (PCP) ADILSON BREWER DO September 24, 2020 18:12 HANNAH CONTRERAS MD September 24, 2020 20:19
--- NOTE | 2020-09-24 18:57 | RAD ---
Site ID: [id number] EXAMINATION: CT HEAD/BRAIN WO. TECHNIQUE: Noncontrast axial images of the brain were obtained with coronal and sagittal reconstructi ons. One or more of the following radiation dose reduction techniques was used: automated exposure control , adjustment of mA and/or KV according to patient size, and/or utilization of iterative reconstructio n technique. HISTORY: 85 years Female Reason: dizziness . July 18, 2020 FINDINGS: There is no intracranial hemorrhage, edema or mass effect. The brain parenchyma demonstrat es periventricular and deep white matter hypodensities compatible with chronic microvascular ischemic changes. Size of the ventricles is appropriate. The visualized portions of the orbits and paranasal sinuses appear unremarkable. IMPRESSION: No acute process. Electronically signed by: Bravo Stark MD (09/24/2020 6:55 PM) [id number]
[2020-09-24 19:12] LABS: BASO # 0.1 x10^3/uL (0.0-0.2); BASO % 1 % (0-3); EOS % 0 % (0-3); HEMOGLOBIN 11.5 g/dL (12.0-15.5); LYMPH % 11 % (24-48); MEAN CORPUSCULAR HEMOGLOBIN 30 pg (25-35); MEAN CORPUSCULAR HGB CONC 33 g/dL (31-37); MEAN CORPUSCULAR VOLUME 92 fL (79-100); MONO # 0.6 x10^3/uL (0.0-1.1); MONO % 7 % (0-9); NEUT # 7.4 x10^3/uL (1.8-7.7); NEUT % 81 % (31-73); PLATELET COUNT 189 x10^3/uL (140-400); RED CELL DISTRIBUTION WIDTH 16.6 % (11.5-14.5); WHITE BLOOD COUNT 9.1 x10^3/uL (4.0-11.0)
[2020-09-24 19:33] LABS: CALCIUM 8.7 mg/dL (8.5-10.1); CREATININE 1.6 mg/dL (0.6-1.0); GFR 37.2; POTASSIUM 4.4 mmol/L (3.5-5.1)
[2020-09-24 19:37] LABS: ACETAMIN < 2 mcg/ml (10-30); SALIC < 2.8 mg/dL (2.8-20.0)
[2020-09-24 19:47] LABS: ALBUMIN 3.1 g/dL (3.4-5.0); DIRECT BILIRUBIN 0.1 mg/dL (0.0-0.2); MAGNESIUM 1.9 mg/dL (1.8-2.4); TOTAL BILIRUBIN 0.3 mg/dL (0.2-1.0); TOTAL PROTEIN 6.5 g/dL (6.4-8.2)
[2020-09-24] MEDS ORDERED: ONDANSETRON PF 4 MG/2 ML VIAL. IV PRN (20:15)
[2020-09-24] MEDS ORDERED: ACETAMINOPHEN 325 MG TABLET. PO PRN (20:15)
--- NOTE | 2020-09-24 22:15 | NUR ---
Patient, Marley Moya, 85, received to room 658, per casey, plan of care discussed with patient, and her daughter, Shabana Collins, who is on her cell phone with pt, questions asked, answered, documented belongings-dtr took purse, she has her upper and lower dentures, a face mask, head band, has booties/slippers, underwear, robe and gown, call light given, to monitor
--- NOTE | 2020-09-24 22:47 | RAD ---
Ventilation perfusion exam History: Dyspnea Comparison: None Technique: Perfusion images only. Perfusion images were acquired after the patient was injected with 4 mCi of technetium 99m MAA. FINDINGS: There is mild heterogeneity of radiotracer on perfusion images. No segmental perfusion defect is iden tified. Impression: There is low probability for pulmonary embolic disease. Electronically signed by: Scott Downey MD (09/24/2020 10:44 PM) [facility]
--- NOTE | 2020-09-24 23:00 | NUR ---
This feature writer asks patient's daughter, Shabana, is asked whether patient needs medications for tonight, and she replied that patient hasn't felt well enough to take any of her medications the last two days, so she can wait until the morning. Monitoring
[2020-09-24] MEDS ORDERED: ALLO300T PO (23:02)
[2020-09-24] MEDS ORDERED: GABA300C18 PO (23:02)
[2020-09-24] MEDS ORDERED: MECL-75 PO (23:02)
[2020-09-24] MEDS ORDERED: MEMA10TA PO (23:02)
[2020-09-24 23:25] VITALS: BP 139/76
[2020-09-25 03:30] VITALS: BP 133/71
[2020-09-25] MEDS: IV NORMAL SALINE 1000ML BAG 1,000 ML IV SCH ×2 (04:26→13:56)
[2020-09-25 05:33] LABS: BASO % 0 % (0-3); EOS % 0 % (0-3); HEMATOCRIT 32.7 % (36.0-47.0); HEMOGLOBIN 10.6 g/dL (12.0-15.5); LYMPH # 1.1 x10^3/uL (1.0-4.8); LYMPH % 12 % (24-48); MEAN CORPUSCULAR HEMOGLOBIN 30 pg (25-35); MEAN CORPUSCULAR HGB CONC 32 g/dL (31-37); MEAN CORPUSCULAR VOLUME 94 fL (79-100); MONO # 0.6 x10^3/uL (0.0-1.1); MONO % 6 % (0-9); NEUT # 7.3 x10^3/uL (1.8-7.7); NEUT % 81 % (31-73); PLATELET COUNT 179 x10^3/uL (140-400); RED CELL DISTRIBUTION WIDTH 16.8 % (11.5-14.5); WHITE BLOOD COUNT 8.9 x10^3/uL (4.0-11.0)
[2020-09-25 06:09] LABS: ALBUMIN 2.9 g/dL (3.4-5.0); ALBUMIN/GLOBULIN RATIO 1.1 (1.0-1.7); CALCIUM 8.4 mg/dL (8.5-10.1); CREATININE 1.2 mg/dL (0.6-1.0); GFR 51.9; POTASSIUM 4.4 mmol/L (3.5-5.1); TOTAL BILIRUBIN 0.3 mg/dL (0.2-1.0); TOTAL PROTEIN 5.6 g/dL (6.4-8.2)
[2020-09-25 07:00] VITALS: BP 174/87
[2020-09-25] MEDS ORDERED: NITROGLYCERIN SUBLINGUAL 0.4 MG BOTTLE OF 25. SL PRN (08:15)
--- NOTE | 2020-09-25 08:27 | PDOC ---
Provider Note Date of Service: DATE: 09/25/20 TIME: 08:27 Provider Note [id number] Justifications for Admission Other Justification LAVONNE HENRIQUEZ MD September 25, 2020 08:27
[2020-09-25] MEDS: IPRATRPIUM/ALBUTEROL 0.5/2.5MG 3 ML NEBU. NEB SCH ×3 (08:51→21:21)
[2020-09-25] MEDS: SODIUM BICARBONATE 650 MG TABLET. PO SCH (09:00)
[2020-09-25] MEDS: ASPIRIN ENTERIC COATED 81 MG TABLET.DR. PO SCH (09:00)
--- NOTE | 2020-09-25 10:09 | HP ---
ADMIT DATE: 09/25/2020 CHIEF COMPLAINT: Weakness. HISTORY OF PRESENT ILLNESS: An 85-year-old female has a history of multiple medical problems. She was here in June and a left lung lesion was assessed by CT and was felt to be not likely tumor in nature. A PET scan was recommended, but has not been done yet. The same left lung lesion was seen on chest x-ray on admission but the V/Q scan was low probability of pulmonary embolus at this time. She is sleeping and not able to provide further history. PAST HISTORY: Multiple meds listed per the chart, some degree of dementia apparently present. ALLERGIES: Allergy to no drugs. SOCIAL HISTORY: Uncertain at this time. No history is available. REVIEW OF SYSTEMS: No other known problems. PHYSICAL EXAMINATION: ENT: Eyes closed. Pharynx clear, otherwise unremarkable. NECK: No masses, nodes or bruits. LUNGS: No tachypnea is noted at rest. CARDIOVASCULAR: Regular rate, rate is about 100. No murmurs noted. ABDOMEN: Soft, benign and nontender. EXTREMITIES: No unusual physical findings. NEUROLOGIC: On exam at this time, the patient is sleepy. In the ER, the exam was unremarkable. ASSESSMENT: Nonspecific weakness and fatigue. Some degree of dehydration per laboratory studies. The left lung lesion is not new and appears to be about similar in size from last exam in June of this year. PLAN: A CT scan as the creatinine is down now to 1.2. Home meds reviewed and the urinalysis as well. SEEMA DR: Denis TID: [id number]
[2020-09-25 11:00] VITALS: BP 133/73
[2020-09-25] MEDS ORDERED: BUDESONIDE 0.5 MG/2 ML NEBU. NEB ONE (11:00)
[2020-09-25] MEDS: methylPREDNISolone SOD SUCC PF 40 MG/ML VIAL. IV SCH ×2 (11:17→20:38)
[2020-09-25] MEDS: ROFLUMILAST 500 MCG TABLET. PO SCH (11:18)
[2020-09-25] MEDS: PANTOPRAZOLE 40 MG TABLET.DR. PO SCH (11:18)
[2020-09-25] MEDS: ALLOPURINOL 300 MG TABLET. PO SCH (11:18)
[2020-09-25] MEDS: DOXYCYCLINE HYCLATE 100 MG TABLET PO SCH ×2 (11:18→20:38)
[2020-09-25] MEDS: GABAPENTIN 100 MG CAPSULE. PO SCH (11:18)
[2020-09-25] MEDS: MEMANTINE 10 MG TABLET. PO SCH ×2 (11:19→20:38)
[2020-09-25] MEDS: METOPROLOL SUCC 24HR ER 25 MG TAB.ER.24H. PO SCH (11:20)
[2020-09-25] MEDS: ENOXAPARIN 30 MG/0.3 ML SYRINGE. SQ SCH (11:20)
--- NOTE | 2020-09-25 12:45 | CONS ---
DATE OF CONSULTATION: 09/25/2020 I was asked to see this 85-year-old lady for acute exacerbation of C OPD, abnormal chest x-ray. HISTORY OF PRESENT ILLNESS: She has a history of 95-pdss-[id number] smoking, stopped smoking in 2009. She does have COPD. She is on oxygen 2 liters per minute via nasal cannula. She has history of lung cancer and right upper lobectomy more than 10 years ago. She was at the hospital in June and July of this year, had a CT of the chest done which did show a left lower lobe lung mass. She does not remember having followup with Dr. Nesbitt. Dr. Nesbitt saw the patient during her previous hospitalization. She does not remember having PET scan either. She has not felt good for the past 4 days, has been weak, has had increased cough, shortness of breath and wheezing. She denies fever or chills. She denies chest pain. PAST MEDICAL HISTORY: 1. Lung cancer, status post right upper lobectomy. 2. COPD. 3. Chronic respiratory failure. 4. Hypertension. SOCIAL HISTORY: History of 72-[id number]-rpnm smoking, quit smoking in 2009. ALLERGIES: STRAWBERRY, TOMATO. MEDICATIONS: Currently, she is on: 1. Protonix. 2. Daliresp. 3. Toprol-XL. 4. Namenda. 5. DuoNeb. 6. Aspirin. FAMILY HISTORY: Hypertension. REVIEW OF SYSTEMS: As mentioned above. Other systems are otherwise negative. PHYSICAL EXAMINATION: GENERAL: Elderly lady. VITAL SIGNS: Her O2 saturation on 3 liters of oxygen is 98%, respiratory rate is 18, heart rate 100, blood pressure 174/87, temperature 97.7. HEENT: Normocephalic, atraumatic. Pupils equal, round, reactive to light. Nose is clear. Throat is clear. NECK: There is no JVD, lymphadenopathy or thyromegaly. CARDIOVASCULAR: Regular rate and rhythm. PMI is nondisplaced. CHEST: Chest inspection is normal. LUNGS: Diminished breath sounds and expiratory wheezing. ABDOMEN: Soft. Bowel sounds are good. There is no mass. EXTREMITIES: There is no edema. LYMPHATICS: There is no lymphadenopathy. NEUROLOGIC: Alert, but very weak. I reviewed the following lab data: Chest x-ray showed COPD changes, increased left mid lung mass-like opacity. V/Q scan, low probability. CT of head, no acute process. WBC 8.9, hemoglobin 10.6, platelets 179. Sodium 143, potassium 4.4, chloride 110, CO2 of 21, BUN 28, creatinine is 1.2 and yesterday was 1.6. Troponin less than 0.017. Lactic acid 0.6. IMPRESSION: 1. Acute on chronic respiratory failure secondary to acute exacerbation of chronic obstructive pulmonary disease, acute bronchitis versus pneumonia, questionable lung cancer. 2. Abnormal chest x-ray. 3. Chronic obstructive pulmonary disease with acute exacerbation. 4. Acute bronchitis versus pneumonia. 5. History of lung cancer status post right upper lobectomy. 6. Ex-smoker. 7. Hypertension. 8. Debility. 9. Acute kidney injury. PLAN AND RECOMMENDATIONS: 1. Titrate FIO2 to keep O2 saturation 92%. 2. Continue bronchodilator. 3. Add inhaled corticosteroid. 4. Add Solu-Medrol 40 mg IV every 12 hours. 5. Start Rocephin and doxycycline. 6. Protonix for stress ulcer prophylaxis. 7. Start Lovenox for DVT prophylaxis. 8. I will order a CT of the chest to have a better look at left lung opacity/mass. 9. We will monitor creatinine. Agree with hydration. 9. Fall precautions. The findings and recommendations were discussed with the patient. She understood and agreed to proceed with the plan. Thank you very much for allowing me to participate in the care of this very nice lady. JULIA FUENTES: Damaris TID: [id number]
[2020-09-25] MEDS: cefTRIAXone IV Push 1 GM VIAL. IVP SCH (13:57)
[2020-09-25 15:00] VITALS: BP 147/79
[2020-09-25 19:00] VITALS: BP 157/79
[2020-09-25 19:22] LABS: BILIRUBIN,URINE NEGATIVE (NEG); CLARITY,URINE CLEAR; COLOR,URINE YELLOW; NITRITE,URINE NEGATIVE (NEG); PH,URINE 5.5 (<5.0-8.0); PROTEIN,URINE NEGATIVE (NEG-TRACE); UROBILINOGEN,URINE 0.2 mg/dL (0.2 mg/dL)
[2020-09-25 19:28] LABS: BARBITURATES NEG (NEG); BENZODIAZEPINES NEG (NEG); CANNABINOIDS NEG (NEG); COCAINE NEG (NEG); METHADONE NEG (NEG); OPIATES NEG (NEG); PHENCYCLIDINE NEG (NEG)
[2020-09-25 19:29] LABS: BACTERIA,URINE 0 /HPF (0-FEW); RBC,URINE 0 /HPF (0-2)
[2020-09-25 19:33] LABS: AMPHETAMINE/METHAMPHETAMINE NEG (NEG)
--- NOTE | 2020-09-25 19:50 | RAD ---
STUDY: CT chest without contrast INDICATION: Lung mass. COMPARISON: CT chest 07/19/2020 TECHNIQUE: Helical CT imaging of the chest performed without the use of intravenous contrast. Sagitta l and coronal reformats were obtained. One or more of the following individualized dose reduction techniques were utilized for this examinat ion: 1. Automated exposure control 2. Adjustment of the mA and/or kV according to patient size 3. Use of iterative reconstruction technique. FINDINGS: Lungs: Enlargement of a left lower lobe mass abutting the fissure and extending to the pleura now owen suring up to 4.3 cm transverse by 3.6 cm AP by 3.8 cm craniocaudal compared to 3.8 cm transverse by 2 .1 cm AP by 1.6 cm craniocaudal. New separate nodule along the fissure on image 32 series 3 measuring 0.9 cm transverse. No newly seen nodule/mass in the left upper lobe or lingula. Unchanged findings t hroughout the right lung. Vasculature: Extensive calcific atherosclerosis to include trivessel coronary artery involvement. No change in aortic caliber. Unchanged prominence of the central pulmonary arteries. Mediastinum/kenton: Multiple pathologically enlarged lymph nodes are now identified. A left hilar lymph node on image 30 series 2 measures 1.3 cm short axis. Pretracheal lymph node on image 17 series 2 me asures 1.1 cm and a pretracheal lymph node on image 15 series 2 measuring 0.8 cm but newly identified . Subcarinal lymph node enlargement now approximately 1.2 cm. Neck/axilla/chest wall: No axillary lymphadenopathy. Bones: No focally aggressive osseous lesion has developed. Sequela of partial right sixth rib resecti on. Multilevel spondylosis. End-stage left shoulder arthrosis. Advanced arthrosis of the right shoul jamia but less pronounced compared to the left. Upper abdomen: Unchanged cyst off the upper pole of the right kidney. No adrenal gland mass is identi fied. IMPRESSION: 1. Increased size of a left lower lobe mass from 07/20/2020 now measuring approximately 4.3 x 3.6 x 3 .8 cm compared to 3.8 x 2.1 x 1.6 cm. New separate nodule adjacent to the dominant mass abutting the fissure measures 0.9 cm. Additionally, development of mediastinal and left hilar adenopathy as outlin ed in the body the report. The findings are consistent with malignancy either a new primary or pulmon mee metastasis given history of right lung cancer. 2. Chronic observations detailed in the body the report. Electronically signed by: SEVERINO MORGAN MD (09/25/2020 7:48 PM) [facility]
[2020-09-25] MEDS: BUDESONIDE 0.5 MG/2 ML NEBU. NEB SCH (21:21)
[2020-09-25 23:14] VITALS: BP 150/73
[2020-09-26 02:43] VITALS: BP 169/91
[2020-09-26 07:00] VITALS: BP 193/103
[2020-09-26] MEDS: BUDESONIDE 0.5 MG/2 ML NEBU. NEB SCH ×2 (07:34→19:59)
[2020-09-26] MEDS: ROFLUMILAST 500 MCG TABLET. PO SCH (08:26)
[2020-09-26] MEDS: ASPIRIN ENTERIC COATED 81 MG TABLET.DR. PO SCH (08:26)
[2020-09-26] MEDS: DOXYCYCLINE HYCLATE 100 MG TABLET PO SCH ×2 (08:28→20:32)
[2020-09-26] MEDS: ALLOPURINOL 300 MG TABLET. PO SCH (08:28)
[2020-09-26] MEDS: methylPREDNISolone SOD SUCC PF 40 MG/ML VIAL. IV SCH (08:28)
[2020-09-26] MEDS: METOPROLOL SUCC 24HR ER 25 MG TAB.ER.24H. PO SCH (08:28)
[2020-09-26] MEDS: PANTOPRAZOLE 40 MG TABLET.DR. PO SCH (08:28)
[2020-09-26] MEDS: GABAPENTIN 100 MG CAPSULE. PO SCH (08:28)
[2020-09-26] MEDS: SODIUM BICARBONATE 650 MG TABLET. PO SCH (08:28)
[2020-09-26] MEDS: MEMANTINE 10 MG TABLET. PO SCH ×2 (08:28→20:32)
--- NOTE | 2020-09-26 09:36 | PDOC ---
Provider Note Date of Service: DATE: 09/26/20 TIME: 09:23 Provider Note vss, no temp, bp up- ct shows larger mass from ct 07/18, CA likely - ct biopsy likely next step for dx- add amlo for bp, hydrate lightly still- has diffuse tremore and mild tachy, add tsh , more metop also Justifications for Admission Other Justification LAVONNE HENRIQUEZ MD September 26, 2020 09:36
[2020-09-26] MEDS ORDERED: METOPROLOL SUCC 24HR ER 25 MG TAB.ER.24H. PO ONE (10:00)
[2020-09-26] MEDS: IV DEXTROSE 5 %-0.45 % NACL 1,000 ML IV SCH (10:03)
--- NOTE | 2020-09-26 10:31 | PDOC ---
PULMONARY PROGRESS NOTES DATE: 09/26/20 TIME: 10:31 Subjective on 02, tired sob better, has cough Vitals Vital Signs Date Time Temp Pulse Resp B/P (MAP) Pulse Ox O2 Delivery O2 Flow Rate FiO2 09/26/20 10:02 96 169/91 09/26/20 07:34 100 Nasal Cannula 2.0 09/26/20 07:00 98.0 18 98.0 ROS: No Nausea, No Chest Pain General: Alert, No acute distress HEENT: Other (nc at perrl ) Lungs: Other (b lat diminished bs) Cardiovascular: S1, S2 Abdomen: Soft, Non-tender Neuro Exam: Alert, Oriented Extremities: No Edema Skin: Warm Labs Laboratory Tests Test 09/24/20 19:00 09/25/20 04:30 09/25/20 19:00 09/25/20 19:07 White Blood Count 9.1 x10^3/uL (4.0-11.0) 8.9 x10^3/uL (4.0-11.0) Red Blood Count 3.80 x10^6/uL (3.50-5.40) 3.50 x10^6/uL (3.50-5.40) Hemoglobin 11.5 g/dL (12.0-15.5) 10.6 g/dL (12.0-15.5) Hematocrit 35.0 % (36.0-47.0) 32.7 % (36.0-47.0) Mean Corpuscular Volume 92 fL (79-100) 94 fL (79-100) Mean Corpuscular Hemoglobin 30 pg (25-35) 30 pg (25-35) Mean Corpuscular Hemoglobin Concent 33 g/dL (31-37) 32 g/dL (31-37) Red Cell Distribution Width 16.6 % (11.5-14.5) 16.8 % (11.5-14.5) Platelet Count 189 x10^3/uL (140-400) 179 x10^3/uL (140-400) Neutrophils (%) (Auto) 81 % (31-73) 81 % (31-73) Lymphocytes (%) (Auto) 11 % (24-48) 12 % (24-48) Monocytes (%) (Auto) 7 % (0-9) 6 % (0-9) Eosinophils (%) (Auto) 0 % (0-3) 0 % (0-3) Basophils (%) (Auto) 1 % (0-3) 0 % (0-3) Neutrophils # (Auto) 7.4 x10^3/uL (1.8-7.7) 7.3 x10^3/uL (1.8-7.7) Lymphocytes # (Auto) 1.0 x10^3/uL (1.0-4.8) 1.1 x10^3/uL (1.0-4.8) Monocytes # (Auto) 0.6 x10^3/uL (0.0-1.1) 0.6 x10^3/uL (0.0-1.1) Eosinophils # (Auto) 0.0 x10^3/uL (0.0-0.7) 0.0 x10^3/uL (0.0-0.7) Basophils # (Auto) 0.1 x10^3/uL (0.0-0.2) 0.0 x10^3/uL (0.0-0.2) Sodium Level 143 mmol/L (136-145) 145 mmol/L (136-145) Potassium Level 4.4 mmol/L (3.5-5.1) 4.4 mmol/L (3.5-5.1) Chloride Level 109 mmol/L (98-107) 110 mmol/L (98-107) Carbon Dioxide Level 24 mmol/L (21-32) 21 mmol/L (21-32) Anion Gap 10 (6-14) 14 (6-14) Blood Urea Nitrogen 32 mg/dL (7-20) 28 mg/dL (7-20) Creatinine 1.6 mg/dL (0.6-1.0) 1.2 mg/dL (0.6-1.0) Estimated GFR (Cockcroft-Gault) 37.2 51.9 Glucose Level 72 mg/dL (70-99) 60 mg/dL (70-99) Lactic Acid Level 0.6 mmol/L (0.4-2.0) Calcium Level 8.7 mg/dL (8.5-10.1) 8.4 mg/dL (8.5-10.1) Magnesium Level 1.9 mg/dL (1.8-2.4) Total Bilirubin 0.3 mg/dL (0.2-1.0) 0.3 mg/dL (0.2-1.0) Direct Bilirubin 0.1 mg/dL (0.0-0.2) Aspartate Amino Transf (AST/SGOT) 36 U/L (15-37) 37 U/L (15-37) Alanine Aminotransferase (ALT/SGPT) 29 U/L (14-59) 25 U/L (14-59) Alkaline Phosphatase 128 U/L (46-116) 116 U/L (46-116) Creatine Kinase 66 U/L (26-192) Troponin I Quantitative < 0.017 ng/mL (0.000-0.055) Total Protein 6.5 g/dL (6.4-8.2) 5.6 g/dL (6.4-8.2) Albumin 3.1 g/dL (3.4-5.0) 2.9 g/dL (3.4-5.0) Thyroid Stimulating Hormone (TSH) 0.735 uIU/mL (0.358-3.74) Salicylates Level < 2.8 mg/dL (2.8-20.0) Salicylate Last Dose Date Salicylate Last Dose Time Acetaminophen Level < 2 mcg/ml (10-30) Acetaminophen Last Dose Date Acetaminophen Last Dose Time BUN/Creatinine Ratio 23 (6-20) Albumin/Globulin Ratio 1.1 (1.0-1.7) Urine Opiates Screen Neg (NEG) Urine Methadone Screen Neg (NEG) Urine Barbiturates Neg (NEG) Urine Phencyclidine Screen Neg (NEG) Urine Amphetamine/Methamphetamine Neg (NEG) Urine Benzodiazepines Screen Neg (NEG) Urine Cocaine Screen Neg (NEG) Urine Cannabinoids Screen Neg (NEG) Urine Ethyl Alcohol Neg (NEG) Urine Collection Type Unknown Urine Color Yellow Urine Clarity Clear Urine pH 5.5 (<5.0-8.0) Urine Specific [place] 1.020 (1.000-1.030) Urine Protein Negative mg/dL (NEG-TRACE) Urine Glucose (UA) Negative mg/dL (NEG) Urine Ketones (Stick) Negative mg/dL (NEG) Urine Blood Negative (NEG) Urine Nitrite Negative (NEG) Urine Bilirubin Negative (NEG) Urine Urobilinogen Dipstick 0.2 mg/dL (0.2 mg/dL) Urine Leukocyte Esterase Negative (NEG) Urine RBC 0 /HPF (0-2) Urine WBC 1-4 /HPF (0-4) Urine Squamous Epithelial Cells Few /LPF Urine Renal Epithelial Cells Occ /LPF Urine Bacteria 0 /HPF (0-FEW) Urine Mucus Slight /LPF Laboratory Tests Test 09/25/20 19:00 09/25/20 19:07 Urine Opiates Screen Neg (NEG) Urine Methadone Screen Neg (NEG) Urine Barbiturates Neg (NEG) Urine Phencyclidine Screen Neg (NEG) Urine Amphetamine/Methamphetamine Neg (NEG) Urine Benzodiazepines Screen Neg (NEG) Urine Cocaine Screen Neg (NEG) Urine Cannabinoids Screen Neg (NEG) Urine Ethyl Alcohol Neg (NEG) Urine Collection Type Unknown Urine Color Yellow Urine Clarity Clear Urine pH 5.5 (<5.0-8.0) Urine Specific [place] 1.020 (1.000-1.030) Urine Protein Negative mg/dL (NEG-TRACE) Urine Glucose (UA) Negative mg/dL (NEG) Urine Ketones (Stick) Negative mg/dL (NEG) Urine Blood Negative (NEG) Urine Nitrite Negative (NEG) Urine Bilirubin Negative (NEG) Urine Urobilinogen Dipstick 0.2 mg/dL (0.2 mg/dL) Urine Leukocyte Esterase Negative (NEG) Urine RBC 0 /HPF (0-2) Urine WBC 1-4 /HPF (0-4) Urine Squamous Epithelial Cells Few /LPF Urine Renal Epithelial Cells Occ /LPF Urine Bacteria 0 /HPF (0-FEW) Urine Mucus Slight /LPF Medications Active Scripts Medications Dose Route/Sig Max Daily Dose Days Date Category Namenda (Memantine Hcl) 10 Mg Tablet 10 Mg PO BID 09/24/20 Reported Meclizine Hcl 25 Mg Tablet 1 Tab PO BID 09/24/20 Reported Allopurinol 300 Mg Tablet 1 Tab PO DAILY 09/24/20 Reported Gabapentin 300 Mg Capsule 100 Mg PO DAILY 09/24/20 Reported Hydrocodone-Apap 5-325 (Hydrocodone Bit/Acetaminophen) 1 Tab Tablet 1 Tab PO PRN Q6HRS PRN 12/11/18 Reported Tylenol (Acetaminophen) 325 Mg Tablet 500 Mg PO PRN 08/08/18 Reported Sodium Bicarbonate 650 Mg Tablet 1 Tab PO DAILY 08/08/18 Reported Metoprolol Succinate ( Xl ) (Metoprolol Succinate) 25 Mg Tab.er.24h 1 Tab PO DAILY 08/08/18 Reported Mucinex (Guaifenesin) 600 Mg Tablet.er 1 Tab PO BID 08/08/18 Reported [Pantoprazole] 40 MG Tablet.dr 40 Mg PO DAILYAC 30 07/18/18 Rx Anoro Ellipta 62.5-25 Mcg Inh (Umeclidinium Brm/Vilanterol Tr) 1 Each Disk.w.dev 1 Each IH DAILY 07/13/18 Reported Daliresp (Roflumilast) 500 Mcg Tablet 500 Mcg PO DAILY 06/16/17 Reported Nitrostat (Nitroglycerin) 0.4 Mg Tab.subl 0.4 Mg SL PRN Q5MIN PRN 06/02/16 Rx Aspirin Ec (Aspirin) 81 Mg Tablet.dr 81 Mg PO DAILYWBKFT 06/02/16 Rx Duoneb 0.5-3(2.5) Mg/3 Ml (Albuterol/Ipratropium) 3 Ml Ampul.neb 3 Ml NEB TID 05/31/16 Reported Cyclobenzaprine Hcl 10 Mg Tablet 1 Tab PO PRN TID 01/05/[address] of chest 1. Increased size of a left lower lobe mass from 07/20/2020 now measuring approximately 4.3 x 3.6 x 3.8 cm compared to 3.8 x 2.1 x 1.6 cm. New separate nodule adjacent to the dominant mass abutting the fissure measures 0.9 cm. Additionally, development of mediastinal and left hilar adenopathy as outlined in the body the report. The findings are consistent with malignancy either a new primary or pulmonary metastasis given history of right lung cancer. 2. Chronic observations detailed in the body the report. Impression . IMPRESSION: 1. Acute on chronic respiratory failure secondary to acute exacerbation of chronic obstructive pulmonary disease, acute bronchitis, enlarging lung mass 2. Abnormal chest x-ray/ct of chest 1. Increased size of a left lower lobe mass from 07/20/2020 now measuring approximately 4.3 x 3.6 x 3.8 cm compared to 3.8 x 2.1 x 1.6 cm. New separate nodule adjacent to the dominant mass abutting the fissure measures 0.9 cm. Additionally, development of mediastinal and left hilar adenopathy as outlined in the body the report. suspect malignancy 2. Chronic observations detailed in the body the report.. 3. Chronic obstructive pulmonary disease with acute exacerbation. 4. Acute bronchitis versus pneumonia. 5. History of lung cancer status post right upper lobectomy. 6. Ex-smoker. 7. Hypertension. 8. Debility. 9. Acute kidney injury. Plan . PLAN AND RECOMMENDATIONS: 1. Titrate FIO2 to keep O2 saturation 92%. 2. Continue bronchodilator. 3. inhaled corticosteroid. 4. change Solu-Medrol to pred 40 mg daily 5. contt Rocephin and doxycycline. 6. Protonix for stress ulcer prophylaxis. 7. Lovenox for DVT prophylaxis. 8. ct reviewed 1. Increased size of a left lower lobe mass from 07/20/2020 now measuring approximately 4.3 x 3.6 x 3.8 cm compared to 3.8 x 2.1 x 1.6 cm. New separate nodule adjacent to the dominant mass abutting the fissure measures 0.9 cm. Additionally, development of mediastinal and left hilar adenopathy as outlined in the body the report. suspect malignancy, discussed ct guided bx by IR she would like to have the bx ordered 9. monitor creatinine. The findings and recommendations were discussed with the patient and RN. YSABEL MILLIGAN MD September 26, 2020 10:31
[2020-09-26 10:49] VITALS: BP 166/90
[2020-09-26] MEDS: cefTRIAXone IV Push 1 GM VIAL. IVP SCH (11:04)
[2020-09-26] MEDS: ENOXAPARIN 30 MG/0.3 ML SYRINGE. SQ SCH (11:10)
[2020-09-26] MEDS: IPRATRPIUM/ALBUTEROL 0.5/2.5MG 3 ML NEBU. NEB SCH ×2 (12:32→19:59)
[2020-09-26 15:00] VITALS: BP 170/92
[2020-09-26 19:00] VITALS: BP 153/83
[2020-09-26] MEDS: LACTOBACILLUS RHAMNOSUS GG 1 CAPSULE. PO SCH (20:32)
[2020-09-26 22:43] VITALS: BP 165/83
[2020-09-27 02:34] VITALS: BP 166/88
[2020-09-27] MEDS: IV DEXTROSE 5 %-0.45 % NACL 1,000 ML IV SCH (05:10)
[2020-09-27 06:14] LABS: CALCIUM 8.7 mg/dL (8.5-10.1); CREATININE 1.2 mg/dL (0.6-1.0); GFR 51.9; POTASSIUM 4.2 mmol/L (3.5-5.1)
[2020-09-27 07:00] VITALS: BP 152/85
[2020-09-27] MEDS: IPRATRPIUM/ALBUTEROL 0.5/2.5MG 3 ML NEBU. NEB SCH ×3 (07:36→18:42)
[2020-09-27] MEDS: BUDESONIDE 0.5 MG/2 ML NEBU. NEB SCH ×2 (07:36→18:43)
[2020-09-27] MEDS: PANTOPRAZOLE 40 MG TABLET.DR. PO SCH (07:39)
--- NOTE | 2020-09-27 08:54 | PDOC ---
Provider Note Date of Service: DATE: 09/27/20 TIME: 08:50 Provider Note vss, bp still up, tremor seems less re more metop- tsh ok- will inc amlo for bp, ct bx for lung next Justifications for Admission Other Justification LAVONNE HENRIQUEZ MD September 27, 2020 08:54
[2020-09-27] MEDS: ROFLUMILAST 500 MCG TABLET. PO SCH (09:01)
[2020-09-27] MEDS: MEMANTINE 10 MG TABLET. PO SCH ×2 (09:01→21:17)
[2020-09-27] MEDS: DOXYCYCLINE HYCLATE 100 MG TABLET PO SCH ×2 (09:01→21:16)
[2020-09-27] MEDS: ALLOPURINOL 300 MG TABLET. PO SCH (09:01)
[2020-09-27] MEDS: LACTOBACILLUS RHAMNOSUS GG 1 CAPSULE. PO SCH ×2 (09:01→21:16)
[2020-09-27] MEDS: METOPROLOL SUCC 24HR ER 50 MG TAB.ER.24H. PO SCH (09:01)
[2020-09-27] MEDS: GABAPENTIN 100 MG CAPSULE. PO SCH (09:02)
[2020-09-27] MEDS: predniSONE 20 MG TABLET PO SCH (09:02)
[2020-09-27] MEDS: cefTRIAXone IV Push 1 GM VIAL. IVP SCH (10:35)
[2020-09-27 11:00] VITALS: BP 134/77
--- NOTE | 2020-09-27 11:14 | PDOC ---
PULMONARY PROGRESS NOTES DATE: 09/27/20 TIME: 11:14 Subjective Remains on 2 liters NC no increased cough or SOB no overnight events Vitals Vital Signs Date Time Temp Pulse Resp B/P (MAP) Pulse Ox O2 Delivery O2 Flow Rate FiO2 09/27/20 09:02 89 152/85 09/27/20 07:50 Nasal Cannula 2.0 09/27/20 07:36 94 09/27/20 07:00 97.9 18 97.9 ROS: No Nausea, No Chest Pain, No Abdominal Pain, No Increase Cough General: Alert, No acute distress Lungs: Other (b lat diminished bs) Cardiovascular: S1, S2 Abdomen: Soft, Non-tender Neuro Exam: Alert, Oriented Extremities: No Edema Skin: Warm, Dry Labs Laboratory Tests Test 09/25/20 19:00 09/25/20 19:07 09/27/20 04:25 Urine Opiates Screen Neg (NEG) Urine Methadone Screen Neg (NEG) Urine Barbiturates Neg (NEG) Urine Phencyclidine Screen Neg (NEG) Urine Amphetamine/Methamphetamine Neg (NEG) Urine Benzodiazepines Screen Neg (NEG) Urine Cocaine Screen Neg (NEG) Urine Cannabinoids Screen Neg (NEG) Urine Ethyl Alcohol Neg (NEG) Urine Collection Type Unknown Urine Color Yellow Urine Clarity Clear Urine pH 5.5 (<5.0-8.0) Urine Specific Chandler 1.020 (1.000-1.030) Urine Protein Negative mg/dL (NEG-TRACE) Urine Glucose (UA) Negative mg/dL (NEG) Urine Ketones (Stick) Negative mg/dL (NEG) Urine Blood Negative (NEG) Urine Nitrite Negative (NEG) Urine Bilirubin Negative (NEG) Urine Urobilinogen Dipstick 0.2 mg/dL (0.2 mg/dL) Urine Leukocyte Esterase Negative (NEG) Urine RBC 0 /HPF (0-2) Urine WBC 1-4 /HPF (0-4) Urine Squamous Epithelial Cells Few /LPF Urine Renal Epithelial Cells Occ /LPF Urine Bacteria 0 /HPF (0-FEW) Urine Mucus Slight /LPF Sodium Level 142 mmol/L (136-145) Potassium Level 4.2 mmol/L (3.5-5.1) Chloride Level 109 mmol/L (98-107) Carbon Dioxide Level 23 mmol/L (21-32) Anion Gap 10 (6-14) Blood Urea Nitrogen 17 mg/dL (7-20) Creatinine 1.2 mg/dL (0.6-1.0) Estimated GFR (Cockcroft-Gault) 51.9 Glucose Level 83 mg/dL (70-99) Calcium Level 8.7 mg/dL (8.5-10.1) Laboratory Tests Test 09/27/20 04:25 Sodium Level 142 mmol/L (136-145) Potassium Level 4.2 mmol/L (3.5-5.1) Chloride Level 109 mmol/L (98-107) Carbon Dioxide Level 23 mmol/L (21-32) Anion Gap 10 (6-14) Blood Urea Nitrogen 17 mg/dL (7-20) Creatinine 1.2 mg/dL (0.6-1.0) Estimated GFR (Cockcroft-Gault) 51.9 Glucose Level 83 mg/dL (70-99) Calcium Level 8.7 mg/dL (8.5-10.1) Medications Active Scripts Medications Dose Route/Sig Max Daily Dose Days Date Category Namenda (Memantine Hcl) 10 Mg Tablet 10 Mg PO BID 09/24/20 Reported Meclizine Hcl 25 Mg Tablet 1 Tab PO BID 09/24/20 Reported Allopurinol 300 Mg Tablet 1 Tab PO DAILY 09/24/20 Reported Gabapentin 300 Mg Capsule 100 Mg PO DAILY 09/24/20 Reported Hydrocodone-Apap 5-325 (Hydrocodone Bit/Acetaminophen) 1 Tab Tablet 1 Tab PO PRN Q6HRS PRN 12/11/18 Reported Tylenol (Acetaminophen) 325 Mg Tablet 500 Mg PO PRN 08/08/18 Reported Sodium Bicarbonate 650 Mg Tablet 1 Tab PO DAILY 08/08/18 Reported Metoprolol Succinate ( Xl ) (Metoprolol Succinate) 25 Mg Tab.er.24h 1 Tab PO DAILY 08/08/18 Reported Mucinex (Guaifenesin) 600 Mg Tablet.er 1 Tab PO BID 08/08/18 Reported [Pantoprazole] 40 MG Tablet.dr 40 Mg PO DAILYAC 30 07/18/18 Rx Anoro Ellipta 62.5-25 Mcg Inh (Umeclidinium Brm/Vilanterol Tr) 1 Each Disk.w.dev 1 Each IH DAILY 07/13/18 Reported Daliresp (Roflumilast) 500 Mcg Tablet 500 Mcg PO DAILY 06/16/17 Reported Nitrostat (Nitroglycerin) 0.4 Mg Tab.subl 0.4 Mg SL PRN Q5MIN PRN 06/02/16 Rx Aspirin Ec (Aspirin) 81 Mg Tablet.dr 81 Mg PO DAILYWBKFT 06/02/16 Rx Duoneb 0.5-3(2.5) Mg/3 Ml (Albuterol/Ipratropium) 3 Ml Ampul.neb 3 Ml NEB TID 05/31/16 Reported Cyclobenzaprine Hcl 10 Mg Tablet 1 Tab PO PRN TID 01/05/[address] of chest 1. Increased size of a left lower lobe mass from 07/20/2020 now measuring approximately 4.3 x 3.6 x 3.8 cm compared to 3.8 x 2.1 x 1.6 cm. New separate nodule adjacent to the dominant mass abutting the fissure measures 0.9 cm. Additionally, development of mediastinal and left hilar adenopathy as outlined in the body the report. The findings are consistent with malignancy either a new primary or pulmonary metastasis given history of right lung cancer. 2. Chronic observations detailed in the body the report. Impression . IMPRESSION: 1. Acute on chronic respiratory failure secondary to acute exacerbation of chronic obstructive pulmonary disease, acute bronchitis, enlarging lung mass 2. Abnormal chest x-ray/ct of chest 1. Increased size of a left lower lobe mass from 07/20/2020 now measuring approximately 4.3 x 3.6 x 3.8 cm compared to 3.8 x 2.1 x 1.6 cm. New separate nodule adjacent to the dominant mass abutting the fissure measures 0.9 cm. Additionally, development of mediastinal and left hilar adenopathy as outlined in the body the report. suspect malignancy 2. Chronic observations detailed in the body the report.. 3. Chronic obstructive pulmonary disease with acute exacerbation. 4. Acute bronchitis versus pneumonia. 5. History of lung cancer status post right upper lobectomy. 6. Ex-smoker. 7. Hypertension. 8. Debility. 9. Acute kidney injury. Plan . PLAN AND RECOMMENDATIONS: Titrate FIO2 to keep O2 saturation 92%, currently on 2 liters NC Continue bronchodilators and inhaled corticosteroid. Continue steroids with slow taper Continue Rocephin and doxycycline for ABX coverage IR for CT guided lung biopsy-- follow pathology Monitor renal function D/W RACHELL HARVEY MD September 27, 2020 11:14
[2020-09-27 15:00] VITALS: BP 139/72
[2020-09-27 19:00] VITALS: BP 127/56
[2020-09-27] MEDS: HYDROcodone/APAP 5/325MG 1 TAB TABLET PO PRN (21:17)
[2020-09-27 23:04] VITALS: BP 117/57
[2020-09-28] VITALS (12 sets, daily range): BP systolic 118–188; BP diastolic 66–94
[2020-09-28] MEDS: IV DEXTROSE 5 %-0.45 % NACL 1,000 ML IV SCH ×2 (01:44→18:15)
[2020-09-28] MEDS: IPRATRPIUM/ALBUTEROL 0.5/2.5MG 3 ML NEBU. NEB SCH ×3 (08:22→18:15)
[2020-09-28] MEDS: BUDESONIDE 0.5 MG/2 ML NEBU. NEB SCH ×2 (08:22→18:15)
[2020-09-28 09:41] LABS: PROTHROMBIN TIME PATIENT 12.8 SEC (11.7-14.0)
--- NOTE | 2020-09-28 10:47 | NUR ---
SW following. Discussed with RN, pt from home with daughter, uses oxygen at home, cardiac diet. Pt having a lung biopsy today. RN ordering PT/OT. Pt has had [facility] in the past. SW will continue to follow.
--- NOTE | 2020-09-28 10:58 | PDOC ---
PULMONARY PROGRESS NOTES DATE: 09/28/20 TIME: 10:58 Subjective Remains on 2 liters NC Planned for Lung BX today no increased cough or SOB no overnight events Vitals Vital Signs Date Time Temp Pulse Resp B/P (MAP) Pulse Ox O2 Delivery O2 Flow Rate FiO2 09/28/20 08:33 99 Nasal Cannula 2.0 09/28/20 07:00 97.5 89 16 144/68 (93) 97.5 ROS: No Nausea, No Chest Pain, No Abdominal Pain, No Increase Cough General: Alert, No acute distress Lungs: Other (b lat diminished bs) Cardiovascular: S1, S2 Abdomen: Soft, Non-tender Neuro Exam: Alert, Oriented Extremities: No Edema Skin: Warm, Dry Labs Laboratory Tests Test 09/27/20 04:25 09/28/20 09:20 Sodium Level 142 mmol/L (136-145) Potassium Level 4.2 mmol/L (3.5-5.1) Chloride Level 109 mmol/L (98-107) Carbon Dioxide Level 23 mmol/L (21-32) Anion Gap 10 (6-14) Blood Urea Nitrogen 17 mg/dL (7-20) Creatinine 1.2 mg/dL (0.6-1.0) Estimated GFR (Cockcroft-Gault) 51.9 Glucose Level 83 mg/dL (70-99) Calcium Level 8.7 mg/dL (8.5-10.1) Prothrombin Time 12.8 SEC (11.7-14.0) Prothromb Time International Ratio 1.0 (0.8-1.1) Laboratory Tests Test 09/28/20 09:20 Prothrombin Time 12.8 SEC (11.7-14.0) Prothromb Time International Ratio 1.0 (0.8-1.1) Medications Active Scripts Medications Dose Route/Sig Max Daily Dose Days Date Category Namenda (Memantine Hcl) 10 Mg Tablet 10 Mg PO BID 09/24/20 Reported Meclizine Hcl 25 Mg Tablet 1 Tab PO BID 09/24/20 Reported Allopurinol 300 Mg Tablet 1 Tab PO DAILY 09/24/20 Reported Gabapentin 300 Mg Capsule 100 Mg PO DAILY 09/24/20 Reported Hydrocodone-Apap 5-325 (Hydrocodone Bit/Acetaminophen) 1 Tab Tablet 1 Tab PO PRN Q6HRS PRN 12/11/18 Reported Tylenol (Acetaminophen) 325 Mg Tablet 500 Mg PO PRN 08/08/18 Reported Sodium Bicarbonate 650 Mg Tablet 1 Tab PO DAILY 08/08/18 Reported Metoprolol Succinate ( Xl ) (Metoprolol Succinate) 25 Mg Tab.er.24h 1 Tab PO DAILY 08/08/18 Reported Mucinex (Guaifenesin) 600 Mg Tablet.er 1 Tab PO BID 08/08/18 Reported [Pantoprazole] 40 MG Tablet.dr 40 Mg PO DAILYAC 30 07/18/18 Rx Anoro Ellipta 62.5-25 Mcg Inh (Umeclidinium Brm/Vilanterol Tr) 1 Each Disk.w.dev 1 Each IH DAILY 07/13/18 Reported Daliresp (Roflumilast) 500 Mcg Tablet 500 Mcg PO DAILY 06/16/17 Reported Nitrostat (Nitroglycerin) 0.4 Mg Tab.subl 0.4 Mg SL PRN Q5MIN PRN 06/02/16 Rx Aspirin Ec (Aspirin) 81 Mg Tablet.dr 81 Mg PO DAILYWBKFT 06/02/16 Rx Duoneb 0.5-3(2.5) Mg/3 Ml (Albuterol/Ipratropium) 3 Ml Ampul.neb 3 Ml NEB TID 05/31/16 Reported Cyclobenzaprine Hcl 10 Mg Tablet 1 Tab PO PRN TID 01/05/[address] of chest 1. Increased size of a left lower lobe mass from 07/20/2020 now measuring approximately 4.3 x 3.6 x 3.8 cm compared to 3.8 x 2.1 x 1.6 cm. New separate nodule adjacent to the dominant mass abutting the fissure measures 0.9 cm. Additionally, development of mediastinal and left hilar adenopathy as outlined in the body the report. The findings are consistent with malignancy either a new primary or pulmonary metastasis given history of right lung cancer. 2. Chronic observations detailed in the body the report. Impression . IMPRESSION: 1. Acute on chronic respiratory failure secondary to acute exacerbation of chronic obstructive pulmonary disease, acute bronchitis, enlarging lung mass 2. Abnormal chest x-ray/ct of chest 1. Increased size of a left lower lobe mass from 07/20/2020 now measuring approximately 4.3 x 3.6 x 3.8 cm compared to 3.8 x 2.1 x 1.6 cm. New separate nodule adjacent to the dominant mass abutting the fissure measures 0.9 cm. Additionally, development of mediastinal and left hilar adenopathy as outlined in the body the report. suspect malignancy 2. Chronic observations detailed in the body the report.. 3. Chronic obstructive pulmonary disease with acute exacerbation. 4. Acute bronchitis versus pneumonia. 5. History of lung cancer status post right upper lobectomy. 6. Ex-smoker. 7. Hypertension. 8. Debility. 9. Acute kidney injury. Plan . PLAN AND RECOMMENDATIONS: Titrate FIO2 to keep O2 saturation 92%, currently on 2 liters NC Continue bronchodilators including pulmicort Continue steroids with slow taper Continue Rocephin and doxycycline for ABX coverage IR for CT guided lung biopsy---planned for today --- follow pathology Monitor renal function D/W RACHELL HARVEY MD Sep 28, 2020 10:58
[2020-09-28] MEDS ORDERED: LIDOCAINE WITH 8.4% SOD BICARB 3 ML DISP.SYRIN. ONE (11:13)
[2020-09-28] MEDS ORDERED: LIDOCAINE WITH 8.4% SOD BICARB 3 ML DISP.SYRIN. IJ ONE (11:30)
[2020-09-28] MEDS ORDERED: fentaNYL PF VIAL 100 MCG/2 ML VIAL IV ONE (11:30)
[2020-09-28] MEDS ORDERED: MIDAZOLAM HCL/PF 2 MG/2 ML VIAL. IV ONE (11:30)
[2020-09-28] MEDS: PANTOPRAZOLE 40 MG TABLET.DR. PO SCH (12:44)
[2020-09-28] MEDS: ROFLUMILAST 500 MCG TABLET. PO SCH (12:44)
[2020-09-28] MEDS: LACTOBACILLUS RHAMNOSUS GG 1 CAPSULE. PO SCH ×2 (12:44→20:49)
[2020-09-28] MEDS: GABAPENTIN 100 MG CAPSULE. PO SCH (12:45)
[2020-09-28] MEDS: predniSONE 20 MG TABLET PO SCH (12:45)
[2020-09-28] MEDS: MEMANTINE 10 MG TABLET. PO SCH ×2 (12:45→20:49)
[2020-09-28] MEDS: ALLOPURINOL 300 MG TABLET. PO SCH (12:45)
[2020-09-28] MEDS: HYDROcodone/APAP 5/325MG 1 TAB TABLET PO PRN ×2 (12:45→20:48)
[2020-09-28] MEDS: DOXYCYCLINE HYCLATE 100 MG TABLET PO SCH ×2 (12:45→20:49)
[2020-09-28] MEDS: METOPROLOL SUCC 24HR ER 50 MG TAB.ER.24H. PO SCH (12:46)
[2020-09-28] MEDS: cefTRIAXone IV Push 1 GM VIAL. IVP SCH (12:47)
--- NOTE | 2020-09-28 12:56 | PDOC ---
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
--- NOTE | 2020-09-28 13:12 | PN ---
DATE: 09/28/2020 LOCATION: She is in room 658. SUBJECTIVE: This 85-year-old female remains hospitalized with weakness, fatigue, dehydration and some mild encephalopathic changes. Workup to date reveals a left chest mass with some left lower lobe lung mass with some mediastinal adenopathy. She is scheduled for biopsy of the same today. Head CT showed no acute changes and V/Q scan was negative for any pulmonary embolism. She reports that the tremor she feels is improved over what she was at admission. Feels like a black cloud is following her around. PHYSICAL EXAMINATION: GENERAL: She is well-developed, well-nourished female in no acute distress. VITAL SIGNS: Stable. She is afebrile. CHEST: Clear. HEART: Regular. ABDOMEN: Benign. IMPRESSION: 1. [id number] respiratory failure with exacerbation of chronic obstructive pulmonary disease, undergoing treatment. 2. Lung mass as described above. 3. Dehydration, improved. 4. Mild encephalopathy on admission. 5. Tremor, improved. PLAN: Continue present treatment for exacerbation of COPD with IR to do CT-guided biopsy today with plans to follow. RUTH DR: Sherrie TID: [id number]
--- NOTE | 2020-09-28 15:57 | NUR ---
Pt admitted with dizziness and change in functional status. Pt with lung mass. Pt would benefit from PT/OT assessment to ensure safe discharge plan. Alejandro write PT/OT eval and treat orders if you agree. Addendum: 09/28/20 at 1557 by JAMIE MUNIZ PT Amended: Links added.
--- NOTE | 2020-09-28 16:12 | RAD ---
XR CHEST 1V 09/28/2020 2:30 PM INDICATION: Lung biopsy COMPARISON: 09/24/2020 TECHNIQUE: Portable frontal view of the chest is provided. FINDINGS: The cardiomediastinal silhouette is within normal limits. Calcified plaque noted involving the thorac ic aorta. Surgical clips identified in the perihilar. Soft tissue mass within the left lower lobe orin ears similar. There are no significant pleural effusions. There is no pulmonary vascular congestion. No pneumothora x. No suspicious osseous abnormality. IMPRESSION: Post left lower lobe mass biopsy without pneumothorax. Electronically signed by: Gina Mtz MD (09/28/2020 4:09 PM) [id number]
[2020-09-29 03:00] VITALS: BP 134/67
[2020-09-29 07:00] VITALS: BP 143/72
[2020-09-29] MEDS: IPRATRPIUM/ALBUTEROL 0.5/2.5MG 3 ML NEBU. NEB SCH ×3 (07:17→20:07)
[2020-09-29] MEDS: BUDESONIDE 0.5 MG/2 ML NEBU. NEB SCH ×2 (07:17→20:07)
[2020-09-29] MEDS: ROFLUMILAST 500 MCG TABLET. PO SCH (08:07)
[2020-09-29] MEDS: predniSONE 20 MG TABLET PO SCH (08:08)
[2020-09-29] MEDS: LACTOBACILLUS RHAMNOSUS GG 1 CAPSULE. PO SCH ×2 (08:08→21:46)
[2020-09-29] MEDS: MEMANTINE 10 MG TABLET. PO SCH ×2 (08:08→21:46)
[2020-09-29] MEDS: HYDROcodone/APAP 5/325MG 1 TAB TABLET PO PRN ×2 (08:08→16:18)
[2020-09-29] MEDS: PANTOPRAZOLE 40 MG TABLET.DR. PO SCH (08:08)
[2020-09-29] MEDS: ALLOPURINOL 300 MG TABLET. PO SCH (08:09)
[2020-09-29] MEDS: DOXYCYCLINE HYCLATE 100 MG TABLET PO SCH ×2 (08:09→21:46)
[2020-09-29] MEDS: GABAPENTIN 100 MG CAPSULE. PO SCH (08:09)
[2020-09-29] MEDS: METOPROLOL SUCC 24HR ER 50 MG TAB.ER.24H. PO SCH (08:10)
--- NOTE | 2020-09-29 09:17 | PN ---
DATE: 09/29/2020 LOCATION: She is in room 658. SUBJECTIVE: This 85-year-old female remains hospitalized with weakness, fatigue, dehydration and encephalopathy. She is back to her premature baseline mental status and at this point in time, is feeling overall better with less tremulousness. She had a lung biopsy yesterday with results pending. OBJECTIVE: VITAL SIGNS: Vital signs are stable. She is afebrile. CHEST: Clear. HEART: Regular. ABDOMEN: Benign. LUNGS: She does have a little bit of pain with a deep breath. IMPRESSION: 1. Acute on chronic respiratory failure, exacerbation of chronic obstructive pulmonary disease, improving. 2. Lung mass with biopsy pending. 3. Dehydration, encephalopathy, improved. 4. Tremor, improved. PLAN: Continue present treatment. Await biopsy with plans to follow. She does remain somewhat vertiginous and we will ask Therapy to see her for safety as well as some vestibular exercises. [place] DR: Sherrie TID: [id number]
--- NOTE | 2020-09-29 10:34 | PDOC ---
PULMONARY PROGRESS NOTES DATE: 09/29/20 TIME: 10:33 Subjective On room air S/P LLL Lung BX 09/28/20 no increased cough or SOB no overnight events Vitals Vital Signs Date Time Temp Pulse Resp B/P (MAP) Pulse Ox O2 Delivery O2 Flow Rate FiO2 09/29/20 08:44 100 Nasal Cannula 2.0 09/29/20 08:10 83 134/67 09/29/20 07:00 98.1 18 98.1 ROS: No Nausea, No Chest Pain, No Abdominal Pain, No Increase Cough General: Alert, No acute distress Lungs: Other (b lat diminished bs) Cardiovascular: S1, S2 Abdomen: Soft, Non-tender Neuro Exam: Alert, Oriented Extremities: No Edema Skin: Warm, Dry Labs Laboratory Tests Test 09/28/20 09:20 Prothrombin Time 12.8 SEC (11.7-14.0) Prothromb Time International Ratio 1.0 (0.8-1.1) Medications Active Scripts Medications Dose Route/Sig Max Daily Dose Days Date Category Namenda (Memantine Hcl) 10 Mg Tablet 10 Mg PO BID 09/24/20 Reported Meclizine Hcl 25 Mg Tablet 1 Tab PO BID 09/24/20 Reported Allopurinol 300 Mg Tablet 1 Tab PO DAILY 09/24/20 Reported Gabapentin 300 Mg Capsule 100 Mg PO DAILY 09/24/20 Reported Hydrocodone-Apap 5-325 (Hydrocodone Bit/Acetaminophen) 1 Tab Tablet 1 Tab PO PRN Q6HRS PRN 12/11/18 Reported Tylenol (Acetaminophen) 325 Mg Tablet 500 Mg PO PRN 08/08/18 Reported Sodium Bicarbonate 650 Mg Tablet 1 Tab PO DAILY 08/08/18 Reported Metoprolol Succinate ( Xl ) (Metoprolol Succinate) 25 Mg Tab.er.24h 1 Tab PO DAILY 08/08/18 Reported Mucinex (Guaifenesin) 600 Mg Tablet.er 1 Tab PO BID 08/08/18 Reported [Pantoprazole] 40 MG Tablet.dr 40 Mg PO DAILYAC 30 07/18/18 Rx Anoro Ellipta 62.5-25 Mcg Inh (Umeclidinium Brm/Vilanterol Tr) 1 Each Disk.w.dev 1 Each IH DAILY 07/13/18 Reported Daliresp (Roflumilast) 500 Mcg Tablet 500 Mcg PO DAILY 06/16/17 Reported Nitrostat (Nitroglycerin) 0.4 Mg Tab.subl 0.4 Mg SL PRN Q5MIN PRN 06/02/16 Rx Aspirin Ec (Aspirin) 81 Mg Tablet.dr 81 Mg PO DAILYWBKFT 06/02/16 Rx Duoneb 0.5-3(2.5) Mg/3 Ml (Albuterol/Ipratropium) 3 Ml Ampul.neb 3 Ml NEB TID 05/31/16 Reported Cyclobenzaprine Hcl 10 Mg Tablet 1 Tab PO PRN TID 01/05/[address] of chest 1. Increased size of a left lower lobe mass from 07/20/2020 now measuring approximately 4.3 x 3.6 x 3.8 cm compared to 3.8 x 2.1 x 1.6 cm. New separate nodule adjacent to the dominant mass abutting the fissure measures 0.9 cm. Additionally, development of mediastinal and left hilar adenopathy as outlined in the body the report. The findings are consistent with malignancy either a new primary or pulmonary metastasis given history of right lung cancer. 2. Chronic observations detailed in the body the report. Impression . IMPRESSION: 1. Acute on chronic respiratory failure secondary to acute exacerbation of chronic obstructive pulmonary disease, acute bronchitis, enlarging lung mass 2. Abnormal chest x-ray/ct of chest 1. Increased size of a left lower lobe mass from 07/20/2020 now measuring approximately 4.3 x 3.6 x 3.8 cm compared to 3.8 x 2.1 x 1.6 cm. New separate nodule adjacent to the dominant mass abutting the fissure measures 0.9 cm. Additionally, development of mediastinal and left hilar adenopathy as outlined in the body the report. suspect malignancy--- S/P LLL lung BX on 09/28/20 2. Chronic observations detailed in the body the report.. 3. Chronic obstructive pulmonary disease with acute exacerbation. 4. Acute bronchitis versus pneumonia. 5. History of lung cancer status post right upper lobectomy. 6. Ex-smoker. 7. Hypertension. 8. Debility. 9. Acute kidney injury.--resolved Plan . PLAN AND RECOMMENDATIONS: Titrate FIO2 to keep O2 saturation 92%, currently on room air Continue bronchodilators including pulmicort Continue steroids with slow taper Continue Rocephin and doxycycline for ABX coverage S/P LLL lung bx --- follow pathology DVT/GI PPX D/W RACHELL HARVEY MD Sep 29, 2020 10:34
[2020-09-29 11:00] VITALS: BP 151/60
[2020-09-29] MEDS: cefTRIAXone IV Push 1 GM VIAL. IVP SCH (12:24)
[2020-09-29 15:00] VITALS: BP 129/56
[2020-09-29] MEDS: IV DEXTROSE 5 %-0.45 % NACL 1,000 ML IV SCH (17:04)
[2020-09-29 19:00] VITALS: BP 106/57
[2020-09-29 23:00] VITALS: BP 115/61
[2020-09-30] VITALS (8 sets, daily range): BP systolic 88–123; BP diastolic 53–67
[2020-09-30] MEDS: predniSONE 20 MG TABLET PO SCH (07:35)
[2020-09-30] MEDS: GABAPENTIN 100 MG CAPSULE. PO SCH (07:35)
[2020-09-30] MEDS: PANTOPRAZOLE 40 MG TABLET.DR. PO SCH (07:35)
[2020-09-30] MEDS: DOXYCYCLINE HYCLATE 100 MG TABLET PO SCH ×2 (07:36→21:23)
[2020-09-30] MEDS: HYDROcodone/APAP 5/325MG 1 TAB TABLET PO PRN (07:36)
[2020-09-30] MEDS: METOPROLOL SUCC 24HR ER 50 MG TAB.ER.24H. PO SCH (07:36)
[2020-09-30] MEDS: ROFLUMILAST 500 MCG TABLET. PO SCH (07:37)
[2020-09-30] MEDS: ALLOPURINOL 300 MG TABLET. PO SCH (07:37)
[2020-09-30] MEDS: MEMANTINE 10 MG TABLET. PO SCH ×2 (07:37→21:23)
--- NOTE | 2020-09-30 07:58 | NUR ---
Patient and all belongings inclding purse, phone, ipad and chargers with patient. Patient informed of transfer and where to. Addendum: 09/30/20 at 0811 by HARSHAL ENCARNACION RN RN Wrong patient, wrong room.
[2020-09-30] MEDS: BUDESONIDE 0.5 MG/2 ML NEBU. NEB SCH ×2 (08:27→20:00)
[2020-09-30] MEDS: IPRATRPIUM/ALBUTEROL 0.5/2.5MG 3 ML NEBU. NEB SCH ×3 (08:27→21:00)
[2020-09-30] MEDS: LACTOBACILLUS RHAMNOSUS GG 1 CAPSULE. PO SCH ×2 (11:06→21:23)
[2020-09-30] MEDS: ASCORBIC ACID 500 MG TABLET PO SCH (11:06)
[2020-09-30] MEDS: FOLIC ACID 1 MG TABLET. PO SCH (11:06)
[2020-09-30] MEDS: cefTRIAXone IV Push 1 GM VIAL. IVP SCH (11:07)
--- NOTE | 2020-09-30 12:08 | PATHOLOGY ---
[facility] Accession Number: [id number] . 01 Material submitted: . lung - LEFT LUNG MASS BIOPSY. Modifiers: left . 01 Clinical history: . FATIGUE,VERTIGO,POSS PE.... LEFT LUNG MASS LEFT LUNG BIOPSY . 02 Diagnosis: Lung tissue, left lung mass needle biopsy: - SMALL CELL UNDIFFERENTIATED CARCINOMA. SEE COMMENT. (JPM:brennan; 09/29/2020) [facility] [place] 09/29/2020 1029 Local . 02 Comment: Sections of the left lung mass needle biopsy show extensive replacement of lung parenchyma by a malignant epithelial neoplasm. The malignant cells have a solid nested appearance. The tumor cells are relatively small and have a high N/C ratio. The tumor cells possess rounded to ovoid shaped nuclei having a finely dispersed chromatin. There is increased apoptosis and mitotic figures are readily demonstrated. The tumor shows no evidence of glandular or squamous differentiation. A panel of immunoperoxidase stains is obtained on A1 and yields the following results: . AE1/AE3: Rare tumor cells show dot-like positivity CK7: Tumor cells negative CD56: Tumor cells positive TTF-1: Few tumor cells focally positive Synaptophysin: Tumor cells positive P40: Tumor cells negative . 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 The results are discussed with Dr. Nesbitt on 09/29/2020 at 1:40 pm. The case is also examined by Dr. Bee, who concurs with the diagnosis. . (JPM:brennan/pit; 09/29/2020) . Special stains performed all on A1: AE1/AE3, CK7, CD56, TTF-1, synaptophysin, p40 . 02 Electronically signed: . Roni Longo MD, Pathologist NPI- [id number] . 01 Gross description: . The specimen is received in formalin, labeled "Moya, Marley, left lung mass" received as 2 soft navarro tissue cores measuring up to 1.2 x less than 0.1cm entirely submitted in A1.([facility]; 09/28/2020) CAROL/CAROL 09/29/2020 1026 Local . 02 Pathologist provided ICD-10: C34.92 . 02 CPT . 002131, [id number], [id number] Specimen Comment: A courtesy copy of this report has been sent to [phone] Specimen Comment: 232, Specimen Comment: Report sent to ,DR MILLIGAN / DR WILDER Performed at: 01 [facility] [address], [place] [id number] MD Fredo Garza MD Phone: [phone] Performed at: 02 [facility] [address] [place], [place] [id number] MD Roni Longo MD Phone: [phone]
--- NOTE | 2020-09-30 12:12 | NUR ---
SW following. Discussed with RN, pt from home with daughter, uses oxygen at home, cardiac diet. Awaiting results of lung biopsy. Therapy recommending SNF. SW met with pt, pt wants to speak to Dr. Brenner before she makes a decision. RN notified. RN obtaining a COVID test incase pt decides to go to SNF. SW will continue to follow.
[2020-09-30] MEDS: IV DEXTROSE 5 %-0.45 % NACL 1,000 ML IV SCH (12:54)
[2020-09-30] MEDS ORDERED: ONDANSETRON PF 4 MG/2 ML VIAL. ONE (12:57)
[2020-09-30] MEDS ORDERED: ONDANSETRON PF 4 MG/2 ML VIAL. IVP PRN (13:15)
--- NOTE | 2020-09-30 13:19 | PDOC ---
PULMONARY PROGRESS NOTES DATE: 09/30/20 TIME: 13:18 Subjective on 2 liters NC S/P LLL Lung BX 09/28/20 no increased cough or SOB or CP no overnight events Vitals Vital Signs Date Time Temp Pulse Resp B/P (MAP) Pulse Ox O2 Delivery O2 Flow Rate FiO2 09/30/20 13:08 99 Nasal Cannula 2.0 09/30/20 11:05 96/54 (68) 09/30/20 11:00 97.9 96 16 97.9 ROS: No Nausea, No Chest Pain, No Abdominal Pain, No Increase Cough General: Alert, No acute distress Lungs: Other (b lat diminished bs) Cardiovascular: S1, S2 Abdomen: Soft, Non-tender Neuro Exam: Alert, Oriented Extremities: No Edema Skin: Warm, Dry Labs Laboratory Tests Test 09/29/20 20:48 09/30/20 08:28 09/30/20 11:39 Glucose (Fingerstick) 105 mg/dL (70-99) 73 mg/dL (70-99) 82 mg/dL (70-99) Laboratory Tests Test 09/29/20 20:48 09/30/20 08:28 09/30/20 11:39 Glucose (Fingerstick) 105 mg/dL (70-99) 73 mg/dL (70-99) 82 mg/dL (70-99) Medications Active Scripts Medications Dose Route/Sig Max Daily Dose Days Date Category Namenda (Memantine Hcl) 10 Mg Tablet 10 Mg PO BID 09/24/20 Reported Meclizine Hcl 25 Mg Tablet 1 Tab PO BID 09/24/20 Reported Allopurinol 300 Mg Tablet 1 Tab PO DAILY 09/24/20 Reported Gabapentin 300 Mg Capsule 100 Mg PO DAILY 09/24/20 Reported Hydrocodone-Apap 5-325 (Hydrocodone Bit/Acetaminophen) 1 Tab Tablet 1 Tab PO PRN Q6HRS PRN 12/11/18 Reported Tylenol (Acetaminophen) 325 Mg Tablet 500 Mg PO PRN 08/08/18 Reported Sodium Bicarbonate 650 Mg Tablet 1 Tab PO DAILY 08/08/18 Reported Metoprolol Succinate ( Xl ) (Metoprolol Succinate) 25 Mg Tab.er.24h 1 Tab PO DAILY 08/08/18 Reported Mucinex (Guaifenesin) 600 Mg Tablet.er 1 Tab PO BID 08/08/18 Reported [Pantoprazole] 40 MG Tablet.dr 40 Mg PO DAILYAC 30 07/18/18 Rx Anoro Ellipta 62.5-25 Mcg Inh (Umeclidinium Brm/Vilanterol Tr) 1 Each Disk.w.dev 1 Each IH DAILY 07/13/18 Reported Daliresp (Roflumilast) 500 Mcg Tablet 500 Mcg PO DAILY 06/16/17 Reported Nitrostat (Nitroglycerin) 0.4 Mg Tab.subl 0.4 Mg SL PRN Q5MIN PRN 06/02/16 Rx Aspirin Ec (Aspirin) 81 Mg Tablet.dr 81 Mg PO DAILYWBKFT 06/02/16 Rx Duoneb 0.5-3(2.5) Mg/3 Ml (Albuterol/Ipratropium) 3 Ml Ampul.neb 3 Ml NEB TID 05/31/16 Reported Cyclobenzaprine Hcl 10 Mg Tablet 1 Tab PO PRN TID 01/05/[address] of chest 1. Increased size of a left lower lobe mass from 07/20/2020 now measuring approximately 4.3 x 3.6 x 3.8 cm compared to 3.8 x 2.1 x 1.6 cm. New separate nodule adjacent to the dominant mass abutting the fissure measures 0.9 cm. Additionally, development of mediastinal and left hilar adenopathy as outlined i n the body the report. The findings are consistent with malignancy either a new primary or pulmonary metastasis given history of right lung cancer. 2. Chronic observations detailed in the body the report. Impression . IMPRESSION: 1. Acute on chronic respiratory failure secondary to acute exacerbation of chronic obstructive pulmonary disease, acute bronchitis, enlarging lung mass 2. Abnormal chest x-ray/ct of chest 1. Increased size of a left lower lobe mass from 07/20/2020 now measuring approximately 4.3 x 3.6 x 3.8 cm compared to 3.8 x 2.1 x 1.6 cm. New separate nodule adjacent to the dominant mass abutting the fissure measures 0.9 cm. Additionally, development of mediastinal and left hilar adenopathy as outlined in the body the report. 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 Chronic observations detailed in the body the report.. 3. Chronic obstructive pulmonary disease with acute exacerbation. 4. Acute bronchitis versus pneumonia. 5. History of lung cancer status post right upper lobectomy. 6. Ex-smoker. 7. Hypertension. 8. Debility. 9. Acute kidney injury.--resolved Plan . PLAN AND RECOMMENDATIONS: Titrate FIO2 to keep O2 saturation 92%, currently on 2 liters NC Continue bronchodilators including pulmicort Continue steroids with slow taper Continue Rocephin and doxycycline for ABX coverage S/P LLL lung bx --- D/W pathologist finding consistent with Small cell lung Cancer, Consult placed to medical oncology DVT/GI PPX PT/OT D/W RN and Daughter RACHELL LAWSON MD Sep 30, 2020 13:19
--- NOTE | 2020-09-30 17:57 | PN ---
DATE: 09/30/2020 DAILY PROGRESS NOTE LOCATION: She is room 658. SUBJECTIVE: This 85-year-old female remains hospitalized with an exacerbation of COPD as well as tremor, weakness, fatigue, dehydration and encephalopathy. She is back to her normal mental status. At this point in time, daughter is present and requests a lung biopsy results present at the time. I explained that I did not have them any at this morning. OBJECTIVE: VITAL SIGNS: Stable. She is afebrile. CHEST: Clear. HEART: Regular. ABDOMEN: Benign. IMPRESSION: 1. Acute on chronic respiratory failure with exacerbation of chronic obstructive pulmonary disease, improving. 2. Lung mass with biopsy pending. 3. Dehydration encephalopathy, improved. 4. Tremor. PLAN: Continue present treatment. Await biopsy with plans to follow. DEISY DR: Sherrie TID: [id number]
[2020-09-30] MEDS: ACETAMINOPHEN 325 MG TABLET. PO PRN (21:35)
[2020-10-01 03:40] VITALS: BP 122/65
[2020-10-01] MEDS: IV DEXTROSE 5 %-0.45 % NACL 1,000 ML IV SCH (06:18)
[2020-10-01 07:00] VITALS: BP 126/86
[2020-10-01] MEDS ORDERED: IOHEXOL 300 MG/ML 100ML VIAL. IV ONE (07:15)
[2020-10-01] MEDS: BUDESONIDE 0.5 MG/2 ML NEBU. NEB SCH ×2 (07:46→20:21)
[2020-10-01] MEDS: IPRATRPIUM/ALBUTEROL 0.5/2.5MG 3 ML NEBU. NEB SCH ×3 (07:46→20:21)
--- NOTE | 2020-10-01 07:55 | RAD ---
CT-guided biopsy, left lung mass September 28, 2020 Clinical Indication: Enlarging left lung mass Discussion: The procedure was explained in its entirety to the patient or the patients designated member service representative by a member of the treatment team, including a discussion of the risks, benefits and commonly accepted alternatives to the procedure, as well as the expected consequences of no therapy whatsoever. Discussion of the risks included, but was not limited to, those that are most frequent and those that are rare but possibly severe or life-threatening, as well as the possibility of unforeseen complications. All elements of maximal sterile barrier technique including the use of a cap, mask, sterile gown, sterile gloves, large sterile sheet, appropriate hand hygiene, and 2% chlorhexidine for cutaneous antisepsis (or acceptable alternative antiseptic per current guidelines) were followed for this procedure. Timeout procedure was performed. The posterior left thorax was prepped and draped using sterile barrier technique. 1% lidocaine was administered for local anesthesia. Under intermittent CT guidance a 17-gauge needle was advanced into a mass posterior left lower lobe. Core biopsy samples were obtained. [place] were removed. Manual pressure was held. Repeat CT imaging demonstrates no immediate complication. The procedures performed under conscious sedation including continuous cardiopulmonary monitoring via dedicated sedation nurse. [id number] sedation time: 30 minutes Impression: CT-guided biopsy, left lower lobe mass PQRS Compliance Statement: One or more of the following individualized dose reduction techniques were utilized for this examination: 1. Automated exposure control 2. Adjustment of the mA and/or kV according to patient size 3. Use of iterative reconstruction technique
[2020-10-01] MEDS: ASCORBIC ACID 500 MG TABLET PO SCH (08:29)
[2020-10-01] MEDS: ALLOPURINOL 300 MG TABLET. PO SCH (08:29)
[2020-10-01] MEDS: MEMANTINE 10 MG TABLET. PO SCH ×2 (08:29→22:44)
[2020-10-01] MEDS: FOLIC ACID 1 MG TABLET. PO SCH (08:29)
[2020-10-01] MEDS: predniSONE 20 MG TABLET PO SCH (08:29)
[2020-10-01] MEDS: GABAPENTIN 100 MG CAPSULE. PO SCH (08:29)
[2020-10-01] MEDS: ROFLUMILAST 500 MCG TABLET. PO SCH (08:29)
[2020-10-01] MEDS: LACTOBACILLUS RHAMNOSUS GG 1 CAPSULE. PO SCH (08:29)
[2020-10-01] MEDS: METOPROLOL SUCC 24HR ER 50 MG TAB.ER.24H. PO SCH (08:30)
[2020-10-01] MEDS: PANTOPRAZOLE 40 MG TABLET.DR. PO SCH (08:30)
[2020-10-01] MEDS: DOXYCYCLINE HYCLATE 100 MG TABLET PO SCH (08:30)
[2020-10-01] MEDS: ACETAMINOPHEN 325 MG TABLET. PO PRN (08:30)
--- NOTE | 2020-10-01 08:34 | PDOC ---
PULMONARY PROGRESS NOTES DATE: 10/01/20 TIME: 08:33 Subjective Remains on 2 liters NC no increased cough or SOB or CP no overnight events Vitals Vital Signs Date Time Temp Pulse Resp B/P (MAP) Pulse Ox O2 Delivery O2 Flow Rate FiO2 10/01/20 08:30 82 122/65 10/01/20 07:47 99 Nasal Cannula 2.0 10/01/20 03:40 97.4 20 97.4 ROS: No Nausea, No Chest Pain, No Abdominal Pain, No Increase Cough General: Alert, No acute distress Lungs: Other (b lat diminished bs) Cardiovascular: S1, S2 Abdomen: Soft, Non-tender Neuro Exam: Alert, Oriented Extremities: No Edema Skin: Warm, Dry Labs Laboratory Tests Test 09/29/20 20:48 09/30/20 08:28 09/30/20 11:39 09/30/20 16:56 Glucose (Fingerstick) 105 mg/dL (70-99) 73 mg/dL (70-99) 82 mg/dL (70-99) 87 mg/dL (70-99) Test 09/30/20 22:25 10/01/20 07:59 Glucose (Fingerstick) 94 mg/dL (70-99) 57 mg/dL (70-99) Laboratory Tests Test 09/30/20 11:39 09/30/20 16:56 09/30/20 22:25 10/01/20 07:59 Glucose (Fingerstick) 82 mg/dL (70-99) 87 mg/dL (70-99) 94 mg/dL (70-99) 57 mg/dL (70-99) Medications Active Scripts Medications Dose Route/Sig Max Daily Dose Days Date Category Namenda (Memantine Hcl) 10 Mg Tablet 10 Mg PO BID 09/24/20 Reported Meclizine Hcl 25 Mg Tablet 1 Tab PO BID 09/24/20 Reported Allopurinol 300 Mg Tablet 1 Tab PO DAILY 09/24/20 Reported Gabapentin 300 Mg Capsule 100 Mg PO DAILY 09/24/20 Reported Hydrocodone-Apap 5-325 (Hydrocodone Bit/Acetaminophen) 1 Tab Tablet 1 Tab PO PRN Q6HRS PRN 12/11/18 Reported Tylenol (Acetaminophen) 325 Mg Tablet 500 Mg PO PRN 08/08/18 Reported Sodium Bicarbonate 650 Mg Tablet 1 Tab PO DAILY 08/08/18 Reported Metoprolol Succinate ( Xl ) (Metoprolol Succinate) 25 Mg Tab.er.24h 1 Tab PO DAILY 08/08/18 Reported Mucinex (Guaifenesin) 600 Mg Tablet.er 1 Tab PO BID 08/08/18 Reported [Pantoprazole] 40 MG Tablet.dr 40 Mg PO DAILYAC 30 07/18/18 Rx Anoro Ellipta 62.5-25 Mcg Inh (Umeclidinium Brm/Vilanterol Tr) 1 Each Disk.w.dev 1 Each IH DAILY 07/13/18 Reported Daliresp (Roflumilast) 500 Mcg Tablet 500 Mcg PO DAILY 06/16/17 Reported Nitrostat (Nitroglycerin) 0.4 Mg Tab.subl 0.4 Mg SL PRN Q5MIN PRN 06/02/16 Rx Aspirin Ec (Aspirin) 81 Mg Tablet.dr 81 Mg PO DAILYWBKFT 06/02/16 Rx Duoneb 0.5-3(2.5) Mg/3 Ml (Albuterol/Ipratropium) 3 Ml Ampul.neb 3 Ml NEB TID 05/31/16 Reported Cyclobenzaprine Hcl 10 Mg Tablet 1 Tab PO PRN TID 01/05/[address] of chest 1. Increased size of a left lower lobe mass from 07/20/2020 now measuring approximately 4.3 x 3.6 x 3.8 cm compared to 3.8 x 2.1 x 1.6 cm. New separate nodule adjacent to the dominant mass abutting the fissure measures 0.9 cm. Additionally, development of mediastinal and left hilar adenopathy as outlined in the body the report. The findings are consistent with malignancy either a new primary or pulmonary metastasis given history of right lung cancer. 2. Chronic observations detailed in the body the report. Impression . IMPRESSION: 1. Acute on chronic respiratory failure secondary to acute exacerbation of chronic obstructive pulmonary disease, acute bronchitis, enlarging lung mass 2. Abnormal chest x-ray/ct of chest 1. Increased size of a left lower lobe ma ss from 07/20/2020 now measuring approximately 4.3 x 3.6 x 3.8 cm compared to 3.8 x 2.1 x 1.6 cm. New separate nodule adjacent to the dominant mass abutting the fissure measures 0.9 cm. Additionally, development of mediastinal and left hilar adenopathy as outlined in the body the report. 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 Chronic observations detailed in the body the report.. 3. Chronic obstructive pulmonary disease with acute exacerbation. 4. Acute bronchitis versus pneumonia. 5. History of lung cancer status post right upper lobectomy. 6. Ex-smoker. 7. Hypertension. 8. Debility. 9. Acute kidney injury.--resolved Plan . PLAN AND RECOMMENDATIONS: Titrate FIO2 to keep O2 saturation 92%, currently on 2 liters NC Continue bronchodilators including pulmicort Continue steroids with slow taper DC Rocephin and doxycycline S/P LLL lung bx --- D/W pathologist finding consistent with Small cell lung Cancer Follow medical oncology recs- planned for MRI of brain and bone scan and considering chemotherapy DVT/GI PPX PT/OT D/W RN and PT. RACHELL LAWSON MD Oct 01, 2020 08:34
--- NOTE | 2020-10-01 10:07 | RAD ---
Exam: CT abdomen/pelvis with intravenous contrast Indication: Small cell lung cancer staging Comparison: None Technique: Helical CT imaging performed of the abdomen and pelvis after the intravenous administratio n of 60 mL Omnipaque 300 contrast. Sagittal and coronal reformats were obtained. One or more of the following individualized dose reduction techniques were utilized for this examinat ion: 1. Automated exposure control 2. Adjustment of the mA and/or kV according to patient size 3. Use of iterative reconstruction technique. Findings: Lower chest: Partial consolidation in the visualized portion of the left lower lobe is redemonstrated . There is new small left pleural effusion. Scarring or atelectasis in the right lung base along with some areas of micronodularity are unchanged from at least 07/13/2018. Heart is normal in size. Liver: The liver is heterogeneous with innumerable hypoattenuating mass is, the largest measuring 1.6 cm The dome of the liver adjacent to the inferior vena cava. Gallbladder/Biliary Tree: The gallbladder surgically absent. Bile ducts are normal. Pancreas: Normal. Spleen: No splenomegaly. There are calcified splenic granulomas. Adrenal Glands: Normal. Kidneys/Ureters/Bladder: Kidneys are small but enhance symmetrically. There is a 4 cm simple cyst in the superior right renal pole. No hydronephrosis. Ureters are normal. Bladder is mostly obscured. No hydronephrosis. Reproductive Organs: Uterus and right adnexa are mostly obscured by artifact from a right hip prosthe sis. Stomach, small bowel, and colon: Stomach, small bowel, and colon are unremarkable. There is fluid in the colon. The appendix is not definitively visualized. Vasculature: Abdominal aorta is tortuous but normal in caliber. Moderate calcified aortoiliac atheros clerosis. Lymph Nodes: No lymphadenopathy. Peritoneum and retroperitoneum: No free fluid or free air. Bones: There is a right hip prosthesis. Moderate levoscoliosis lumbar spine and degenerative disc dis ease. Impression: 1. Innumerable small hepatic metastases, the largest measuring approximately 1.6 cm. 2. New small left pleural effusion. Otherwise unchanged appearance of the lung bases. Electronically signed by: Gabriella Batista MD (10/01/2020 10:05 AM) [id number]
[2020-10-01 11:00] VITALS: BP 112/60
--- NOTE | 2020-10-01 11:08 | NUR ---
SW following. Discussed with RN, SW consult for referral to [facility]. SW met with pt, she is agreeable. SW phoned and faxed referral to [facility], awaiting acceptance decision and insurance auth. Pt gave permission for FIN[facility] to contact her daughter, Shabana. Oncology coming to speak with pt today. Awaiting further plan of care. FINN will continue to follow.
--- NOTE | 2020-10-01 13:05 | PDOC2 ---
CONSULT Date of Consult Date of Consult DATE: 10/01/20 TIME: 13:03 Reason for Consult Reason for Consult: Small cell Lung Cancer Referring Physician Referring Physician: Identification/Chief Complaint Chief Complaint Lung Mass Source Source: Caregiver, Chart review, Patient History of Present Illness Reason for Visit: Patient was seen in June with a abnormal CT scan. She presented to the emergency room and had CT scan that showed worsening mass in the lung and adenopathy. She was admitted for evaluation. 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 CT scan done today showed multiple small liver metastasis. She is having pain in her shoulders and bones. She has also had increasing forgetfulness. She had CT scan of the head on a mission that was negative. Past Medical History Cardiovascular: HTN, Other Pulmonary: COPD, Other CENTRAL NERVOUS SYSTEM: Dementia GI: Diverticulosis Heme/Onc: Cancer (Lung cancer status post right upper lobectomy approximately 15 years ago at [facility]) Hepatobiliary: No pertinent hx Psych: Anxiety Musculoskeletal: low back pain, Osteoarthritis Rheumatologic: Gout Infectious disease: No pertinent hx Renal/: UTI Endocrine: No pertinent hx Past Surgical History Past Surgical History: Appendectomy, Cataract Removal, Total hip replacement, Hysterectomy, Other (Back surgery, right upper lobectomy) Family History Family History: Coronary Artery Disease Social History ALCOHOL: none Lives: with Family (Currently living with her daughter for the last year and a half. Increasing difficulty with forgetfulness and memory issues.) Current Problem List Problem List Problems Medical Problems: (1) Lung mass Status: Acute (2) Shortness of breath Status: Acute Current Medications Current Medications Current Medications Sodium Chloride 1,000 ml @ 1,000 mls/hr 1X ONCE IV Last administered on 09/24/20at 18:08; Start 09/24/20 at 17:15; Stop 09/24/20 at 18:14; Status DC Ondansetron HCl (Zofran) 4 mg PRN Q8HRS PRN IV NAUSEA/VOMITING; Start 09/24/20 at 20:15; Stop 09/25/20 at 20:14; Status DC Sodium Chloride 1,000 ml @ 75 mls/hr [id number] IV Last administered on 09/25/20at 13:56; Start 09/24/20 at 20:30; Stop 09/25/20 at 20:29; Status DC Acetaminophen (Tylenol) 650 mg PRN Q4HRS PRN PO FEVER > 100.3'F; Start 09/24/20 at 20:15; Stop 09/25/20 at 20:14; Status DC Allopurinol (Zyloprim) 300 mg DAILY PO Last administered on 10/01/20 08:29; Start 09/25/20 at 09:00 Aspirin (Ecotrin) 81 mg DAILYWBKFT PO Last administered on 09/26/20 08:26; Start 09/25/20 at 09:00; Stop 09/26/20 at 09:39; Status DC Gabapentin (Neurontin) 100 mg DAILY PO Last administered on 10/01/20 08:29; Start 09/25/20 at 09:00 Acetaminophen/ Hydrocodone Bitart (Lortab 5/325) 1 tab PRN Q6HRS PRN PO MODERATE - SEVERE PAIN Last administered on 09/30/20 07:36; Start 09/25/20 at 08:15 Albuterol/ Ipratropium (Duoneb) 3 ml TID NEB Last administered on 10/01/20 11:05; Start 09/25/20 at 09:00 Memantine (Namenda) 10 mg BID PO Last administered on 10/01/20 08:29; Start 09/25/20 at 09:00 Metoprolol Succinate (Toprol Xl) 25 mg DAILY PO Last administered on 09/26/20 08:28; Start 09/25/20 at 09:00; Stop 09/26/20 at 09:39; Status DC Nitroglycerin (Nitrostat) 0.4 mg PRN Q5MIN PRN SL CHEST PAIN; Start 09/25/20 at 08:15 Roflumilast (Daliresp) 500 mcg DAILY PO Last administered on 10/01/20 08:29; Start 09/25/20 at 09:00 Sodium Bicarbonate (Sodium Bicarbonate) 650 mg DAILY PO Last administered on 09/26/20 08:28; Start 09/25/20 at 09:00; Stop 09/26/20 at 09:21; Status DC Pantoprazole Sodium (Protonix) 40 mg DAILYAC PO Last administered on 10/01/20 08:30; Start 09/25/20 at 09:00 Methylprednisolone Sodium Succinate (SOLU-Medrol 40MG VIAL) 40 mg Q12HR IV Last administered on 09/26/20 08:28; Start 09/25/20 at 10:30; Stop 09/26/20 at 10:40; Status DC Ceftriaxone Sodium (Rocephin) 1 gm Q24H IVP Last administered on 09/30/20 11:07; Start 09/25/20 at 11:00 Doxycycline Hyclate (Vibra-Tab) 100 mg BID PO Last administered on 10/01/20 08:30; Start 09/25/20 at 11:00 Enoxaparin Sodium (Lovenox 30mg Syringe) 30 mg Q24H SQ Last administered on 09/26/20at 11:10; Start 09/25/20 at 11:00; Stop 09/27/20 at 08:51; Status DC Budesonide (Pulmicort) 0.5 mg RTBID NEB Last administered on 10/01/20 07:46; Start 09/25/20 at 20:00 Budesonide (Pulmicort) 0.5 mg 1X ONCE NEB ; Start 09/25/20 at 11:00; Stop 09/25/20 at 11:01; Status DC Amlodipine Besylate (Norvasc) 2.5 mg DAILY PO Last administered on 09/26/20 10:01; Start 09/26/20 at 10:00; Stop 09/27/20 at 08:51; Status DC Metoprolol Succinate (Toprol Xl) 50 mg DAILY PO Last administered on 10/01/20 08:30; Start 09/27/20 at 09:00 Dextrose/Sodium Chloride 1,000 ml @ 50 mls/hr Q20H IV Last administered on 10/01/20 06:18; Start 09/26/20 at 09:30 Metoprolol Succinate (Toprol Xl) 25 mg 1X ONCE PO Last administered on 09/26/20at 10:02; Start 09/26/20 at 10:00; Stop 09/26/20 at 10:01; Status DC Prednisone (Prednisone) 40 mg DAILY PO Last administered on 10/01/20 08:29; Start 09/27/20 at 09:00 Lactobacillus Rhamnosus (Culturelle) 1 cap BID PO Last administered on 6/4/21at 08:29; Start 09/26/20 at 21:00 Amlodipine Besylate (Norvasc) 5 mg DAILY PO Last administered on 09/30/20at 07:37; Start 09/27/20 at 09:00 Lidocaine HCl (Buffered Lidocaine 1%) 3 ml STK-MED ONCE .ROUTE ; Start 09/28/20 at 11:13; Stop 09/28/20 at 11:13; Status DC Lidocaine HCl (Buffered Lidocaine 1%) 3 ml 1X ONCE IJ Last administered on 09/28/20at 12:04; Start 09/28/20 at 11:30; Stop 09/28/20 at 11:31; Status DC Midazolam HCl (Versed) 2 mg 1X ONCE IV Last administered on 09/28/20at 12:00; Start 09/28/20 at 11:30; Stop 09/28/20 at 11:31; Status DC Fentanyl Citrate (Fentanyl 2ml Vial) 100 mcg 1X ONCE IV Last administered on 09/28/20at 12:00; Start 09/28/20 at 11:30; Stop 09/28/20 at 11:31; Status DC Folic Acid (Folic Acid) 1 mg DAILY PO Last administered on 10/01/20 08:29; Start 09/30/20 at 10:30 Ascorbic Acid (Vitamin C) 500 mg DAILY PO Last administered on 10/01/20at 08:29; Start 09/30/20 at 10:30 Ondansetron HCl (Zofran) 4 mg STK-MED ONCE .ROUTE ; Start 09/30/20 at 12:57; Stop 09/30/20 at 12:58; Status DC Ondansetron HCl (Zofran) 4 mg PRN Q6HRS PRN IVP NAUSEA/VOMITING Last administered on 09/30/20at 17:23; Start 09/30/20 at 13:15 Acetaminophen (Tylenol) 650 mg PRN Q6HRS PRN PO MILD PAIN / TEMP > 100.3'F Last administered on 10/01/20at 08:30; Start 09/30/20 at 21:30 Iohexol (Omnipaque 300 Mg/ml) 60 ml 1X ONCE IV Last administered on 10/01/20at 07:15; Start 10/01/20 at 07:15; Stop 10/01/20 at 07:17; Status DC Active Scripts Active [Pantoprazole] 40 MG Tablet. 40 Mg PO DAILYAC 30 Days Nitrostat (Nitroglycerin) 0.4 Mg Tab.subl 0.4 Mg SL PRN Q5MIN PRN Aspirin Ec (Aspirin) 81 Mg Tablet. 81 Mg PO DAILYWBKFT Reported Namenda (Memantine Hcl) 10 Mg Tablet 10 Mg PO BID Meclizine Hcl 25 Mg Tablet 1 Tab PO BID Allopurinol 300 Mg Tablet 1 Tab PO DAILY Gabapentin 300 Mg Capsule 100 Mg PO DAILY Hydrocodone-Apap 5-325 (Hydrocodone Bit/Acetaminophen) 1 Tab Tablet 1 Tab PO PRN Q6HRS PRN Tylenol (Acetaminophen) 325 Mg Tablet 500 Mg PO PRN Sodium Bicarbonate 650 Mg Tablet 1 Tab PO DAILY Metoprolol Succinate ( Xl ) (Metoprolol Succinate) 25 Mg Tab.er.24h 1 Tab PO DAILY Mucinex (Guaifenesin) 600 Mg Tablet.er 1 Tab PO BID Anoro Ellipta 62.5-25 Mcg Inh (Umeclidinium Brm/Vilanterol Tr) 1 Each Disk.w.dev 1 Each IH DAILY Daliresp (Roflumilast) 500 Mcg Tablet 500 Mcg PO DAILY Duoneb 0.5-3(2.5) Mg/3 Ml (Albuterol/Ipratropium) 3 Ml Ampul.neb 3 Ml NEB TID Cyclobenzaprine Hcl 10 Mg Tablet 1 Tab PO PRN TID Allergies Allergies: Coded Allergies: tomato (Verified Allergy, Severe, 09/08/16) strawberry (Verified Allergy, Intermediate, 09/07/16) ROS General: YES: Fatigue PSYCHOLOGICAL ROS: YES: Anxiety Eyes: Yes Blurry vision (Several eye visits in the last year.) HEENT: YES: Heacaches; No: Oral lesions, Epistaxis Hematological and Lymphatic: No: Bleeding Problems, Blood Clots Respiratory: YES: Cough, Shortness of breath; No: Hemoptysis Cardiovascular: yes Edema Gastrointestinal: Yes Other (Having bowel movement every time she urinates.); No Nausea, No Vomiting Genitourinary: No Incontinence, No Hematuria Musculoskeletal: Yes Joint Pain (Bilateral shoulders right leg greater than left) Neurological: Yes Confusion (Decreased memory) Physical Exam General: Alert, Cooperative HEENT: PERRLA, EOMI (Arcus senilis bilaterally) Lungs: Other (Decreased breath sounds with a few wheezes bilaterally) Heart: Regular rate, No murmurs Abdomen: Soft, No tenderness, No hepatosplenomegaly Extremities: No clubbing, No cyanosis Skin: Other (Bilateral ecchymosis) Neuro: Other (Almost cerebellar speech with a jerkiness to the speech, Intention tremor) MUSCULOSKELETAL: Other (Tenderness of both shoulders. Decreased range of motion secondary to pain) Vitals VITALS Vital Signs Date Time Temp Pulse Resp B/P (MAP) Pulse Ox O2 Delivery O2 Flow Rate FiO2 10/01/20 11:05 98 Nasal Cannula 2.0 10/01/20 11:00 97.4 86 18 112/60 (77) 97.4 Labs Labs Laboratory Tests Test 09/29/20 20:48 09/30/20 08:28 09/30/20 11:39 09/30/20 16:56 Glucose (Fingerstick) 105 mg/dL (70-99) 73 mg/dL (70-99) 82 mg/dL (70-99) 87 mg/dL (70-99) Test 09/30/20 22:25 10/01/20 07:59 10/01/20 11:48 Glucose (Fingerstick) 94 mg/dL (70-99) 57 mg/dL (70-99) 78 mg/dL (70-99) Laboratory Tests Test 09/30/20 16:56 09/30/20 22:25 10/01/20 07:59 10/01/20 11:48 Glucose (Fingerstick) 87 mg/dL (70-99) 94 mg/dL (70-99) 57 mg/dL (70-99) 78 mg/dL (70-99) Images Images 10/01/20 Exam: CT abdomen/pelvis with intravenous contrast Indication: Small cell lung cancer staging Comparison: None Technique: Helical CT imaging performed of the abdomen and pelvis after the intravenous administration of 60 mL Omnipaque 300 contrast. Sagittal and coronal reformats were obtained. One or more of the following individualized dose reduction techniques were utilized for this examination: 1. Automated exposure control 2. Adjustment of the mA and/or kV according to patient size 3. Use of iterative reconstruction technique. Findings: Lower chest: Partial consolidation in the visualized portion of the left lower lobe is redemonstrated. There is new small left pleural effusion. Scarring or atelectasis in the right lung base along with some areas of micronodularity are unchanged from at least 07/13/2018. Heart is normal in size. Liver: The liver is heterogeneous with innumerable hypoattenuating mass is, the largest measuring 1.6 cm The dome of the liver adjacent to the inferior vena cava. Gallbladder/Biliary Tree: The gallbladder surgically absent. Bile ducts are normal. Pancreas: Normal. Spleen: No splenomegaly. There are calcified splenic granulomas. Adrenal Glands: Normal. Kidneys/Ureters/Bladder: Kidneys are small but enhance symmetrically. There is a 4 cm simple cyst in the superior right renal pole. No hydronephrosis. Ureters are normal. Bladder is mostly obscured. No hydronephrosis. Reproductive Organs: Uterus and right adnexa are mostly obscured by artifact from a right hip prosthesis. Stomach, small bowel, and colon: Stomach, small bowel, and colon are unremarkable. There is fluid in the colon. The appendix is not definitively visualized. Vasculature: Abdominal aorta is tortuous but normal in caliber. Moderate calcified aortoiliac atherosclerosis. Lymph Nodes: No lymphadenopathy. Peritoneum and retroperitoneum: No free fluid or free air. Bones: There is a right hip prosthesis. Moderate levoscoliosis lumbar spine and degenerative disc disease. Impression: 1. Innumerable small hepatic metastases, the largest measuring approximately 1.6 cm. 2. New small left pleural effusion. Otherwise unchanged appearance of the lung bases. Electronically signed by: Gabriella Batista MD (10/01/2020 10:05 AM) [id number] 09/25/20 CT [facility] History: Left mass. Comparison: Chest x-ray 07/18/2020, 12/10/2018. CT chest 07/13/2018 Technique: Noncontrast CT of the chest. Findings: Assessment is limited by lack of IV contrast. Aorta and Great Vessels: No aneurysm of the aortic arch or thoracic aorta is seen. Heavy atherosclerotic calcification. Thyroid: No significant abnormalities. Mediastinum and kenton: No mediastinal masses or adenopathy is seen. Esophagus: The visualized esophagus is normal. Heart: The heart is normal in size. There is no pericardial effusion. Heavy coronary artery calcification. Trachea: Right upper lobectomy surgical changes. Lungs: Mild emphysematous change. Stable 2.2 cm diameter region of groundglass attenuation posterior right lower lobe (series 3 image 37). Elongated mass measuring 1.8 cm AP by 3.9 cm transverse by 1.5 cm craniocaudal in the left lower lobe adjacent to an area of chronic atelectasis, just inferior to the fissure. Calcified left upper lobe granuloma. Pleural Space: There is no pneumothorax or pleural effusion. Upper Abdomen: Cholecystectomy clips. Old granulomatous disease in the spleen. Right upper pole renal cyst. Rotated left renal orientation. Bilateral renal cortical atrophy. Osseous Structures and Soft Tissues: Within normal limits for age. Impression: 1. Elongated mass measuring 1.8 x 3.9 x 1.5 cm in the left lower lobe apical segment along an area of chronic atelectasis may represent infectious consolidation, however neoplasm cannot be excluded. Recommend PET/CT or consideration for tissue sampling. At a minimum short interval follow-up should be conducted in 3 months. 2. Stable appearance of right lower lobe 2.2 cm groundglass attenuation. 3. Right upper lobectomy. June 2020 CT [facility] History: Left mass. Comparison: Chest x-ray 07/18/2020, 12/10/2018. CT chest 07/13/2018 Technique: Noncontrast CT of the chest. Findings: Assessment is limited by lack of IV contrast. Aorta and Great Vessels: No aneurysm of the aortic arch or thoracic aorta is seen. Heavy atherosclerotic calcification. Thyroid: No significant abnormalities. Mediastinum and kenton: No mediastinal masses or adenopathy is seen. Esophagus: The visualized esophagus is normal. Heart: The heart is normal in size. There is no pericardial effusion. Heavy coronary artery calcification. Trachea: Right upper lobectomy surgical changes. Lungs: Mild emphysematous change. Stable 2.2 cm diameter region of groundglass attenuation posterior right lower lobe (series 3 image 37). Elongated mass measuring 1.8 cm AP by 3.9 cm transverse by 1.5 cm craniocaudal in the left lower lobe adjacent to an area of chronic atelectasis, just inferior to the fissure. Calcified left upper lobe granuloma. Pleural Space: There is no pneumothorax or pleural effusion. Upper Abdomen: Cholecystectomy clips. Old granulomatous disease in the spleen. Right upper pole renal cyst. Rotated left renal orientation. Bilateral renal cortical atrophy. Osseous Structures and Soft Tissues: Within normal limits for age. Impression: 1. Elongated mass measuring 1.8 x 3.9 x 1.5 cm in the left lower lobe apical segment along an area of chronic atelectasis may represent infectious consolidation, however neoplasm cannot be excluded. Recommend PET/CT or consideration for tissue sampling. At a minimum short interval follow-up should be conducted in 3 months. 2. Stable appearance of right lower lobe 2.2 cm groundglass attenuation. 3. Right upper lobectomy. Assessment/Plan Assessment/Plan 1. Poorly differentiated non small cell lung cancer with Metastasis to liver and mediastinal nodes. Progressed since June 2020. Pain in shoulders worrisome for metastasis and worsening dementia. Will get bone scan, MRI brain and discuss chemotherapy. Dr. Cutler will follow up tomorrow. 2. Cognitive dysfunction worsening over last 12 months. Worse last 3 months. Will get MRI 3. Shoulder pain. Rule out mets. Will get Bone scan Rec Bone scan MRI Brain LFT, Uric acid, LDH and CEA Consider chemotherapy with Carboplatin Etoposide and possible check point inhibitor. YONIS CABA MD Oct 01, 2020 13:05
[2020-10-01] MEDS: HYDROcodone/APAP 5/325MG 1 TAB TABLET PO PRN (13:17)
[2020-10-01] MEDS: cefTRIAXone IV Push 1 GM VIAL. IVP SCH (13:21)
--- NOTE | 2020-10-01 14:12 | PN ---
DATE: 10/01/2020 DAILY PROGRESS NOTE LOCATION: She is in room 658. SUBJECTIVE: This is an 85-year-old female remains hospitalized with exacerbation of COPD as well as tremor, weakness, fatigue, dehydration, encephalopathy. She is progressively better and I believe back to her normal mental status. We did discuss pathology findings are stable small cell carcinoma of the lung biopsy. She is asking about senior care, which is recommended by Therapy and I told her I am fine with that. I explained Oncology will be seeing her to discuss options for small cell carcinoma. OBJECTIVE: VITAL SIGNS: Stable. She is afebrile. CHEST: Clear. HEART: Regular. ABDOMEN: Benign. IMPRESSION: 1. Acute on chronic respiratory failure with exacerbation of chronic obstructive pulmonary disease, improving. 2. Dehydration and encephalopathy, improving. 3. Small cell lung cancer. 4. Tremor. PLAN: Await Oncology evaluation and suggestions. Ongoing therapy with likely senior care at the time of discharge. I would prefer she be at [facility] before going to the senior care where we can continue to follow her. YAJAIRA/SETH/CASEY DR: YAJAIRA/korin TID: [id number]
[2020-10-01] MEDS ORDERED: GADOTERATE 7.5 MMOL/15ML VIAL. IVP ONE (14:30)
[2020-10-01 16:35] LABS: ALBUMIN 2.7 g/dL (3.4-5.0); ALBUMIN/GLOBULIN RATIO 0.9 (1.0-1.7); CALCIUM 8.8 mg/dL (8.5-10.1); GFR 28.8; POTASSIUM 4.5 mmol/L (3.5-5.1); TOTAL BILIRUBIN 0.2 mg/dL (0.2-1.0); TOTAL PROTEIN 5.8 g/dL (6.4-8.2); URIC ACID 2.3 mg/dL (2.6-6.0)
--- NOTE | 2020-10-01 16:58 | RAD ---
MRI of the Brain without and with Contrast 10/01/2020 Clinical History: Small cell lung cancer. Technique: Unenhanced T1-weighted sagittal and axial, T2-weighted axial and coronal and FLAIR, gradi ent echo and diffusion-weighted axial images of the brain were obtained. After the intravenous admini stration of 13 cc of DOTAREM, enhanced T1-weighted axial, sagittal and coronal images of the brain we re obtained. Findings: Comparison study is dated 12/12/2018. There is generalized parenchymal atrophy. Patchy and several small scattered areas of increased signa l intensity are seen within the periventricular and subcortical white matter of both cerebral hemisph eres on the FLAIR and T2-weighted images consistent with areas of mild small vessel ischemic disease. These are unchanged. No acute parenchymal abnormality is seen. No area of abnormal contrast enhancem ent is noted. There is no MRI evidence of acute ischemia/infarction. Mild mucosal thickening is seen scattered throughout the paranasal sinuses. Normal flow voids are see n within the major vascular structures surrounding the brain parenchyma. IMPRESSION: No acute parenchymal abnormality is seen. There is no MRI evidence of metastatic disease involving the brain parenchyma. Electronically signed by: Joe Rodriguez MD (10/01/2020 4:55 PM) [id number]
[2020-10-01 19:00] VITALS: BP 120/60
[2020-10-01 23:00] VITALS: BP 120/57
[2020-10-02 03:00] VITALS: BP 123/62
[2020-10-02] MEDS: IV DEXTROSE 5 %-0.45 % NACL 1,000 ML IV SCH (04:22)
[2020-10-02 07:00] VITALS: BP 120/69
--- NOTE | 2020-10-02 07:46 | PDOC ---
PULMONARY PROGRESS NOTES DATE: 10/02/20 TIME: 07:43 Subjective on 02 2 lpm on home o2 is tired has r shoulder pain has occ cough sob Vitals Vital Signs Date Time Temp Pulse Resp B/P (MAP) Pulse Ox O2 Delivery O2 Flow Rate FiO2 10/02/20 03:00 98.2 78 18 123/62 (82) 99 Nasal Cannula 2.0 98.2 ROS: No Nausea, No Chest Pain, No Abdominal Pain, No Increase Cough General: Alert, No acute distress HEENT: Other (nc at perrl ) Lungs: Other (b lat diminished bs) Cardiovascular: S1, S2 Abdomen: Soft, Non-tender Neuro Exam: Alert, Oriented Extremities: No Edema Skin: Warm, Dry Labs Laboratory Tests Test 09/30/20 08:28 09/30/20 11:39 09/30/20 16:56 09/30/20 22:25 Glucose (Fingerstick) 73 mg/dL (70-99) 82 mg/dL (70-99) 87 mg/dL (70-99) 94 mg/dL (70-99) Test 10/01/20 07:59 10/01/20 11:48 10/01/20 16:00 10/01/20 16:57 Glucose (Fingerstick) 57 mg/dL (70-99) 78 mg/dL (70-99) 98 mg/dL (70-99) Sodium Level 141 mmol/L (136-145) Potassium Level 4.5 mmol/L (3.5-5.1) Chloride Level 108 mmol/L (98-107) Carbon Dioxide Level 20 mmol/L (21-32) Anion Gap 13 (6-14) Blood Urea Nitrogen 37 mg/dL (7-20) Creatinine 2.0 mg/dL (0.6-1.0) Estimated GFR (Cockcroft-Gault) 28.8 BUN/Creatinine Ratio 19 (6-20) Glucose Level 97 mg/dL (70-99) Uric Acid 2.3 mg/dL (2.6-6.0) Calcium Level 8.8 mg/dL (8.5-10.1) Total Bilirubin 0.2 mg/dL (0.2-1.0) Aspartate Amino Transf (AST/SGOT) 34 U/L (15-37) Alanine Aminotransferase (ALT/SGPT) 31 U/L (14-59) Alkaline Phosphatase 110 U/L (46-116) Lactate Dehydrogenase 266 U/L (81-234) Total Protein 5.8 g/dL (6.4-8.2) Albumin 2.7 g/dL (3.4-5.0) Albumin/Globulin Ratio 0.9 (1.0-1.7) Test 10/01/20 20:24 Glucose (Fingerstick) 113 mg/dL (70-99) Laboratory Tests Test 10/01/20 07:59 10/01/20 11:48 10/01/20 16:00 10/01/20 16:57 Glucose (Fingerstick) 57 mg/dL (70-99) 78 mg/dL (70-99) 98 mg/dL (70-99) Sodium Level 141 mmol/L (136-145) Potassium Level 4.5 mmol/L (3.5-5.1) Chloride Level 108 mmol/L (98-107) Carbon Dioxide Level 20 mmol/L (21-32) Anion Gap 13 (6-14) Blood Urea Nitrogen 37 mg/dL (7-20) Creatinine 2.0 mg/dL (0.6-1.0) Estimated GFR (Cockcroft-Gault) 28.8 BUN/Creatinine Ratio 19 (6-20) Glucose Level 97 mg/dL (70-99) Uric Acid 2.3 mg/dL (2.6-6.0) Calcium Level 8.8 mg/dL (8.5-10.1) Total Bilirubin 0.2 mg/dL (0.2-1.0) Aspartate Amino Transf (AST/SGOT) 34 U/L (15-37) Alanine Aminotransferase (ALT/SGPT) 31 U/L (14-59) Alkaline Phosphatase 110 U/L (46-116) Lactate Dehydrogenase 266 U/L (81-234) Total Protein 5.8 g/dL (6.4-8.2) Albumin 2.7 g/dL (3.4-5.0) Albumin/Globulin Ratio 0.9 (1.0-1.7) Test 10/01/20 20:24 Glucose (Fingerstick) 113 mg/dL (70-99) Medications Active Scripts Medications Dose Route/Sig Max Daily Dose Days Date Category Namenda (Memantine Hcl) 10 Mg Tablet 10 Mg PO BID 09/24/20 Reported Meclizine Hcl 25 Mg Tablet 1 Tab PO BID 09/24/20 Reported Allopurinol 300 Mg Tablet 1 Tab PO DAILY 09/24/20 Reported Gabapentin 300 Mg Capsule 100 Mg PO DAILY 09/24/20 Reported Hydrocodone-Apap 5-325 (Hydrocodone Bit/Acetaminophen) 1 Tab Tablet 1 Tab PO PRN Q6HRS PRN 12/11/18 Reported Tylenol (Acetaminophen) 325 Mg Tablet 500 Mg PO PRN 08/08/18 Reported Sodium Bicarbonate 650 Mg Tablet 1 Tab PO DAILY 08/08/18 Reported Metoprolol Succinate ( Xl ) (Metoprolol Succinate) 25 Mg Tab.er.24h 1 Tab PO DAILY 08/08/18 Reported Mucinex (Guaifenesin) 600 Mg Tablet.er 1 Tab PO BID 08/08/18 Reported [Pantoprazole] 40 MG Tablet.dr 40 Mg PO DAILYAC 30 07/18/18 Rx Anoro Ellipta 62.5-25 Mcg Inh (Umeclidinium Brm/Vilanterol Tr) 1 Each Disk.w.dev 1 Each IH DAILY 07/13/18 Reported Daliresp (Roflumilast) 500 Mcg Tablet 500 Mcg PO DAILY 06/16/17 Reported Nitrostat (Nitroglycerin) 0.4 Mg Tab.subl 0.4 Mg SL PRN Q5MIN PRN 06/02/16 Rx Aspirin Ec (Aspirin) 81 Mg Tablet.dr 81 Mg PO DAILYWBKFT 06/02/16 Rx Duoneb 0.5-3(2.5) Mg/3 Ml (Albuterol/Ipratropium) 3 Ml Ampul.neb 3 Ml NEB TID 05/31/16 Reported Cyclobenzaprine Hcl 10 Mg Tablet 1 Tab PO PRN TID 01/05/[address] of chest 1. Increased size of a left lower lobe mass from 07/20/2020 now measuring approximately 4.3 x 3.6 x 3.8 cm compared to 3.8 x 2.1 x 1.6 cm. New separate nodule adjacent to the dominant mass abutting the fissure measures 0.9 cm. Additionally, development of mediastinal and left hilar adenopathy as outlined in the body the report. The findings are consistent with malignancy either a new primary or pulmonary metastasis given history of right lung cancer. 2. Chronic observations detailed in the body the report. Impression . IMPRESSION: 1. Acute on chronic respiratory failure secondary to acute exacerbation of chronic obstructive pulmonary disease, acute bronchitis, enlarging lung mass 2. Abnormal chest x-ray/ct of chest 1. Increased size of a left lower lobe mass from 07/20/2020 now measuring approximately 4.3 x 3.6 x 3.8 cm compared to 3.8 x 2.1 x 1.6 cm. New separate nodule adjacent to the dominant mass abutting the fissure measures 0.9 cm. Additionally, development of mediastinal and left h ilar adenopathy as outlined in the body the report. 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 Chronic observations detailed in the body the report.. 3. Chronic obstructive pulmonary disease with acute exacerbation. 4. Acute bronchitis versus pneumonia. 5. History of lung cancer status post right upper lobectomy. 6. Ex-smoker. 7. Hypertension. 8. Debility. 9. Acute kidney injury.--resolved Plan . PLAN AND RECOMMENDATIONS: Titrate FIO2 to keep O2 saturation 92%, currently on 2 liters NC increase activity Continue bronchodilator and ICS pulmicort change prednisone to 30 mg daily slow taper monitor off abx S/P LLL lung bx --- D/W pathologist finding consistent with Small cell lung Cancer Follow medical oncology recs- planned for MRI of brain and bone scan and considering chemotherapy DVT/GI PPX PT/OT D/W RN and PT. YSABEL MILLIGAN MD Oct 02, 2020 07:46
[2020-10-02] MEDS: IPRATRPIUM/ALBUTEROL 0.5/2.5MG 3 ML NEBU. NEB SCH ×3 (07:58→19:46)
[2020-10-02] MEDS: BUDESONIDE 0.5 MG/2 ML NEBU. NEB SCH ×2 (07:58→19:46)
[2020-10-02] MEDS: ALLOPURINOL 300 MG TABLET. PO SCH (08:39)
[2020-10-02] MEDS: METOPROLOL SUCC 24HR ER 50 MG TAB.ER.24H. PO SCH (08:40)
[2020-10-02] MEDS: MEMANTINE 10 MG TABLET. PO SCH ×2 (08:40→20:54)
[2020-10-02] MEDS: ROFLUMILAST 500 MCG TABLET. PO SCH (08:40)
[2020-10-02] MEDS: FOLIC ACID 1 MG TABLET. PO SCH (08:40)
[2020-10-02] MEDS: predniSONE 20 MG TABLET PO SCH (08:40)
[2020-10-02] MEDS: ASCORBIC ACID 500 MG TABLET PO SCH (08:41)
[2020-10-02] MEDS: PANTOPRAZOLE 40 MG TABLET.DR. PO SCH (08:41)
[2020-10-02] MEDS: GABAPENTIN 100 MG CAPSULE. PO SCH (08:41)
[2020-10-02 10:37] VITALS: BP 112/71
--- NOTE | 2020-10-02 14:28 | PN ---
DATE: 10/02/2020 LOCATION: She is in room 658. SUBJECTIVE: This 85-year-old female remains hospitalized with generalized weakness and some encephalopathy on admission. She is improving in those regards. She is trying to eat as much as she can. We once again discussed her small cell carcinoma diagnosis. I explained to her that a CT scan yesterday showed some liver metastasis and the MRI of the brain was normal. There is no bone scan done yet. Oncology is waiting on that prior to trying some chemotherapy, which she states she will start, but quit if it is intolerable. OBJECTIVE: VITAL SIGNS: Stable. She is afebrile. CHEST: Clear. HEART: Regular. ABDOMEN: Benign. IMPRESSION: 1. Metastatic small cell carcinoma of the lung. 2. Acute on chronic respiratory failure with exacerbation of chronic obstructive pulmonary disease, improving. 3. Dehydration, encephalopathy, improved. 4. Tremor with slight improvement. PLAN: Await bone scan with final planning. I did put in an evaluation yesterday for chcf, which she may need at discharge and are waiting on insurance authorization for the same. CORBIN DR: Sherrie TID: [id number]
[2020-10-02 14:36] VITALS: BP 126/66
[2020-10-02] MEDS: ACETAMINOPHEN 325 MG TABLET. PO PRN (17:18)
--- NOTE | 2020-10-02 17:50 | NUR ---
ASSISTED PATIENT UP FROM BS, PATIENT HAD A SMALL BM WITH BRIGHT RED BLOOD (SMALL AMOUNT OF BLOOD), PATIENT DENIES PAIN DISCOMFORT, CALAZIME CREAM APPLIED TO BUTTOCKS FOR COMFORT, NO OPEN AREA NOTICED, PATIENTS' DAUGHTER AT THE BEDSIDE, WILL INFORM DR. RAHMAN
[2020-10-02 19:40] VITALS: BP 109/55
[2020-10-02 23:35] VITALS: BP 117/61
[2020-10-03] MEDS: IV DEXTROSE 5 %-0.45 % NACL 1,000 ML IV SCH ×2 (00:42→20:16)
[2020-10-03 03:26] VITALS: BP 111/57
[2020-10-03 04:23] LABS: HEMATOCRIT 32.1 % (36.0-47.0); HEMOGLOBIN 10.1 g/dL (12.0-15.5); RED BLOOD COUNT 3.44 x10^6/uL (3.50-5.40); RED CELL DISTRIBUTION WIDTH 17.3 % (11.5-14.5); WHITE BLOOD COUNT 11.2 x10^3/uL (4.0-11.0)
[2020-10-03 07:00] VITALS: BP 134/69
[2020-10-03] MEDS: BUDESONIDE 0.5 MG/2 ML NEBU. NEB SCH ×2 (07:03→21:03)
[2020-10-03] MEDS: IPRATRPIUM/ALBUTEROL 0.5/2.5MG 3 ML NEBU. NEB SCH ×3 (07:03→21:03)
--- NOTE | 2020-10-03 07:47 | PDOC ---
PULMONARY PROGRESS NOTES DATE: 10/03/20 TIME: 07:45 Subjective on 02 2 lpm on home o2 is weak has r shoulder pain has occ cough sob Vitals Vital Signs Date Time Temp Pulse Resp B/P (MAP) Pulse Ox O2 Delivery O2 Flow Rate FiO2 10/03/20 07:04 98 Nasal Cannula 1.0 10/03/20 07:00 97.7 89 20 134/69 (90) 97.7 ROS: No Nausea, No Chest Pain, No Abdominal Pain, No Increase Cough General: Alert, No acute distress HEENT: Other (nc at perrl ) Lungs: Other (b lat diminished bs) Cardiovascular: S1, S2 Abdomen: Soft, Non-tender Neuro Exam: Alert, Oriented Extremities: No Edema Skin: Warm, Dry Labs Laboratory Tests Test 10/01/20 07:59 10/01/20 11:48 10/01/20 16:00 10/01/20 16:57 Glucose (Fingerstick) 57 mg/dL (70-99) 78 mg/dL (70-99) 98 mg/dL (70-99) Sodium Level 141 mmol/L (136-145) Potassium Level 4.5 mmol/L (3.5-5.1) Chloride Level 108 mmol/L (98-107) Carbon Dioxide Level 20 mmol/L (21-32) Anion Gap 13 (6-14) Blood Urea Nitrogen 37 mg/dL (7-20) Creatinine 2.0 mg/dL (0.6-1.0) Estimated GFR (Cockcroft-Gault) 28.8 BUN/Creatinine Ratio 19 (6-20) Glucose Level 97 mg/dL (70-99) Uric Acid 2.3 mg/dL (2.6-6.0) Calcium Level 8.8 mg/dL (8.5-10.1) Total Bilirubin 0.2 mg/dL (0.2-1.0) Aspartate Amino Transf (AST/SGOT) 34 U/L (15-37) Alanine Aminotransferase (ALT/SGPT) 31 U/L (14-59) Alkaline Phosphatase 110 U/L (46-116) Lactate Dehydrogenase 266 U/L (81-234) Total Protein 5.8 g/dL (6.4-8.2) Albumin 2.7 g/dL (3.4-5.0) Albumin/Globulin Ratio 0.9 (1.0-1.7) Test 10/01/20 20:24 10/02/20 14:41 10/03/20 03:30 Glucose (Fingerstick) 113 mg/dL (70-99) 95 mg/dL (70-99) White Blood Count 11.2 x10^3/uL (4.0-11.0) Red Blood Count 3.44 x10^6/uL (3.50-5.40) Hemoglobin 10.1 g/dL (12.0-15.5) Hematocrit 32.1 % (36.0-47.0) Mean Corpuscular Volume 93 fL (79-100) Mean Corpuscular Hemoglobin 29 pg (25-35) Mean Corpuscular Hemoglobin Concent 32 g/dL (31-37) Red Cell Distribution Width 17.3 % (11.5-14.5) Platelet Count 173 x10^3/uL (140-400) Laboratory Tests Test 10/02/20 14:41 10/03/20 03:30 Glucose (Fingerstick) 95 mg/dL (70-99) White Blood Count 11.2 x10^3/uL (4.0-11.0) Red Blood Count 3.44 x10^6/uL (3.50-5.40) Hemoglobin 10.1 g/dL (12.0-15.5) Hematocrit 32.1 % (36.0-47.0) Mean Corpuscular Volume 93 fL (79-100) Mean Corpuscular Hemoglobin 29 pg (25-35) Mean Corpuscular Hemoglobin Concent 32 g/dL (31-37) Red Cell Distribution Width 17.3 % (11.5-14.5) Platelet Count 173 x10^3/uL (140-400) Medications Active Scripts Medications Dose Route/Sig Max Daily Dose Days Date Category Namenda (Memantine Hcl) 10 Mg Tablet 10 Mg PO BID 09/24/20 Reported Meclizine Hcl 25 Mg Tablet 1 Tab PO BID 09/24/20 Reported Allopurinol 300 Mg Tablet 1 Tab PO DAILY 09/24/20 Reported Gabapentin 300 Mg Capsule 100 Mg PO DAILY 09/24/20 Reported Hydrocodone-Apap 5-325 (Hydrocodone Bit/Acetaminophen) 1 Tab Tablet 1 Tab PO PRN Q6HRS PRN 12/11/18 Reported Tylenol (Acetaminophen) 325 Mg Tablet 500 Mg PO PRN 08/08/18 Reported Sodium Bicarbonate 650 Mg Tablet 1 Tab PO DAILY 08/08/18 Reported Metoprolol Succinate ( Xl ) (Metoprolol Succinate) 25 Mg Tab.er.24h 1 Tab PO DAILY 08/08/18 Reported Mucinex (Guaifenesin) 600 Mg Tablet.er 1 Tab PO BID 08/08/18 Reported [Pantoprazole] 40 MG Tablet.dr 40 Mg PO DAILYAC 30 07/18/18 Rx Anoro Ellipta 62.5-25 Mcg Inh (Umeclidinium Brm/Vilanterol Tr) 1 Each Disk.w.dev 1 Each IH DAILY 07/13/18 Reported Daliresp (Roflumilast) 500 Mcg Tablet 500 Mcg PO DAILY 06/16/17 Reported Nitrostat (Nitroglycerin) 0.4 Mg Tab.subl 0.4 Mg SL PRN Q5MIN PRN 06/02/16 Rx Aspirin Ec (Aspirin) 81 Mg Tablet.dr 81 Mg PO DAILYWBKFT 06/02/16 Rx Duoneb 0.5-3(2.5) Mg/3 Ml (Albuterol/Ipratropium) 3 Ml Ampul.neb 3 Ml NEB TID 05/31/16 Reported Cyclobenzaprine Hcl 10 Mg Tablet 1 Tab PO PRN TID 01/05/[address] of chest 1. Increased size of a left lower lobe mass from 07/20/2020 now measuring approximately 4.3 x 3.6 x 3.8 cm compared to 3.8 x 2.1 x 1.6 cm. New separate nodule adjacent to the dominant mass abutting the fissure measures 0.9 cm. Additionally, development of mediastinal and left hilar adenopathy as outlined in the body the report. The findings are consistent with malignancy either a new primary or pulmonary metastasis given history of right lung cancer. 2. Chronic observations detailed in the body the report. Impression . IMPRESSION: 1. Acute on chronic respiratory failure secondary to acute exacerbation of chronic obstructive pulmonary disease, acute bronchitis, enlarging lung mass 2. Abnormal chest x-ray/ct of chest 1. Increased size of a left lower lobe mass from 07/20/2020 now measuring approximately 4.3 x 3.6 x 3.8 cm compared to 3.8 x 2.1 x 1.6 cm. New separate nodule adjacent to the dominant mass abutting the fissure measures 0.9 cm. Additionally, development of mediastinal and left hilar adenopathy as outlined in the body the report. 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 Chronic observations detailed in the body the report.. 3. Chronic obstructive pulmonary disease with acute exacerbation. 4. Acute bronchitis versus pneumonia. 5. History of lung cancer status post right upper lobectomy. 6. Ex-smoker. 7. Hypertension. 8. Debility. 9. Acute kidney injury.--resolved Plan . PLAN AND RECOMMENDATIONS: Titrate FIO2 to keep O2 saturation 92%, currently on 2 liters NC increase activity may need alf unit at [place] is weak Continue bronchodilator and ICS pulmicort prednisone to 30 mg daily with slow taper monitor off abx S/P LLL lung bx --- D/W pathologist finding consistent with Small cell lung Cancer Follow medical oncology recs- planned for MRI of brain and bone scan and considering chemotherapy DVT/GI PPX PT/OT D/W RN and PT. YSABEL MILLIGAN MD Oct 03, 2020 07:47
[2020-10-03] MEDS: FOLIC ACID 1 MG TABLET. PO SCH (09:35)
[2020-10-03] MEDS: GABAPENTIN 100 MG CAPSULE. PO SCH (09:35)
[2020-10-03] MEDS: ASCORBIC ACID 500 MG TABLET PO SCH (09:36)
[2020-10-03] MEDS: METOPROLOL SUCC 24HR ER 50 MG TAB.ER.24H. PO SCH (09:36)
[2020-10-03] MEDS: ALLOPURINOL 300 MG TABLET. PO SCH (09:37)
[2020-10-03] MEDS: predniSONE 10 MG TABLET PO SCH (09:37)
[2020-10-03] MEDS: ROFLUMILAST 500 MCG TABLET. PO SCH (09:38)
[2020-10-03] MEDS: MEMANTINE 10 MG TABLET. PO SCH ×2 (09:38→20:12)
[2020-10-03] MEDS: PANTOPRAZOLE 40 MG TABLET.DR. PO SCH (09:38)
[2020-10-03 11:00] VITALS: BP 122/62
--- NOTE | 2020-10-03 13:07 | PDOC2 ---
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 There is imaging evidence of metastatic disease to the liver. During her treatment and evaluation here she has had some change in her bowel function. She has had bowel movements with each of her urinary events which is unusual for her. She denies any rectal or lower abdominal discomfort although she does complain of some right-sided chest pain. She denies any bleeding but was noted to have blood in her stool yesterday by her family and the nurses. A small amount was reported. She denies that this is occurred before. She states she had a normal screening colonoscopy many years ago and normally has regular bowel function at home. He says she is lost her appetite recently but is trying to eat. She does not like the chocolate flavored Ensure but I encouraged her to try other supplements to keep her nutrition level up. Past Medical History Cardiovascular: HTN, Other Pulmonary: COPD, Other CENTRAL NERVOUS SYSTEM: Dementia GI: Diverticulosis Heme/Onc: Cancer (Lung cancer status post right upper lobectomy approximately 15 years ago at [facility]) Hepatobiliary: No pertinent hx Psych: Anxiety Musculoskeletal: low back pain, Osteoarthritis Rheumatologic: Gout Infectious disease: No pertinent hx Renal/: UTI Endocrine: No pertinent hx Past Surgical History Past Surgical History: Appendectomy, Cataract Removal, Total hip replacement, Hysterectomy, Other (Back surgery, right upper lobectomy) Family History Family History: Coronary Artery Disease Social History ALCOHOL: none Lives: with Family (Currently living with her daughter for the last year and a half. Increasing difficulty with forgetfulness and memory issues.) Current Problem List Problem List Problems Medical Problems: (1) Lung mass Status: Acute (2) Pneumonia Status: Acute (3) Shortness of breath Status: Acute Current Medications Current Medications Current Medications Sodium Chloride 1,000 ml @ 1,000 mls/hr 1X ONCE IV Last administered on 09/24/20at 18:08; Start 09/24/20 at 17:15; Stop 09/24/20 at 18:14; Status DC Ondansetron HCl (Zofran) 4 mg PRN Q8HRS PRN IV NAUSEA/VOMITING; Start 09/24/20 at 20:15; Stop 09/25/20 at 20:14; Status DC Sodium Chloride 1,000 ml @ 75 mls/hr [id number] IV Last administered on 09/25/20at 13:56; Start 09/24/20 at 20:30; Stop 09/25/20 at 20:29; Status DC Acetaminophen (Tylenol) 650 mg PRN Q4HRS PRN PO FEVER > 100.3'F; Start 09/24/20 at 20:15; Stop 09/25/20 at 20:14; Status DC Allopurinol (Zyloprim) 300 mg DAILY PO Last administered on 10/03/20 09:37; Start 09/25/20 at 09:00 Aspirin (Ecotrin) 81 mg DAILYWBKFT PO Last administered on 09/26/20 08:26; Start 09/25/20 at 09:00; Stop 09/26/20 at 09:39; Status DC Gabapentin (Neurontin) 100 mg DAILY PO Last administered on 10/03/20 09:35; Start 09/25/20 at 09:00 Acetaminophen/ Hydrocodone Bitart (Lortab 5/325) 1 tab PRN Q6HRS PRN PO MODERATE - SEVERE PAIN Last administered on 10/01/20 13:17; Start 09/25/20 at 08:15 Albuterol/ Ipratropium (Duoneb) 3 ml TID NEB Last administered on 10/03/20 07:03; Start 09/25/20 at 09:00 Memantine (Namenda) 10 mg BID PO Last administered on 10/03/20 09:38; Start 09/25/20 at 09:00 Metoprolol Succinate (Toprol Xl) 25 mg DAILY PO Last administered on 09/26/20 08:28; Start 09/25/20 at 09:00; Stop 09/26/20 at 09:39; Status DC Nitroglycerin (Nitrostat) 0.4 mg PRN Q5MIN PRN SL CHEST PAIN; Start 09/25/20 at 08:15 Roflumilast (Daliresp) 500 mcg DAILY PO Last administered on 10/03/20 09:38; Start 09/25/20 at 09:00 Sodium Bicarbonate (Sodium Bicarbonate) 650 mg DAILY PO Last administered on 09/26/20at 08:28; Start 09/25/20 at 09:00; Stop 09/26/20 at 09:21; Status DC Pantoprazole Sodium (Protonix) 40 mg DAILYAC PO Last administered on 10/03/20at 09:38; Start 09/25/20 at 09:00 Methylprednisolone Sodium Succinate (SOLU-Medrol 40MG VIAL) 40 mg Q12HR IV Last administered on 09/26/20at 08:28; Start 09/25/20 at 10:30; Stop 09/26/20 at 10:40; Status DC Ceftriaxone Sodium (Rocephin) 1 gm Q24H IVP Last administered on 10/01/20at 13:21; Start 09/25/20 at 11:00; Stop 10/01/20 at 18:02; Status DC Doxycycline Hyclate (Vibra-Tab) 100 mg BID PO Last administered on 10/01/20at 08:30; Start 09/25/20 at 11:00; Stop 10/01/20 at 18:02; Status DC Enoxaparin Sodium (Lovenox 30mg Syringe) 30 mg Q24H SQ Last administered on 09/26/20at 11:10; Start 09/25/20 at 11:00; Stop 09/27/20 at 08:51; Status DC Budesonide (Pulmicort) 0.5 mg RTBID NEB Last administered on 10/03/20at 07:03; Start 09/25/20 at 20:00 Budesonide (Pulmicort) 0.5 mg 1X ONCE NEB ; Start 09/25/20 at 11:00; Stop 09/25/20 at 11:01; Status DC Amlodipine Besylate (Norvasc) 2.5 mg DAILY PO Last administered on 09/26/20at 10:01; Start 09/26/20 at 10:00; Stop 09/27/20 at 08:51; Status DC Metoprolol Succinate (Toprol Xl) 50 mg DAILY PO Last administered on 10/03/20at 09:36; Start 09/27/20 at 09:00 Dextrose/Sodium Chloride 1,000 ml @ 50 mls/hr Q20H IV Last administered on 10/03/20at 00:42; Start 09/26/20 at 09:30 Metoprolol Succinate (Toprol Xl) 25 mg 1X ONCE PO Last administered on 09/26/20at 10:02; Start 09/26/20 at 10:00; Stop 09/26/20 at 10:01; Status DC Prednisone (Prednisone) 40 mg DAILY PO Last administered on 10/02/20at 08:40; Start 09/27/20 at 09:00; Stop 10/03/20 at 07:47; Status DC Lactobacillus Rhamnosus (Culturelle) 1 cap BID PO Last administered on 10/01/20at 08:29; Start 09/26/20 at 21:00; Stop 10/01/20 at 15:38; Status DC Amlodipine Besylate (Norvasc) 5 mg DAILY PO Last administered on 10/03/20at 09:37; Start 09/27/20 at 09:00 Lidocaine HCl (Buffered Lidocaine 1%) 3 ml STK-MED ONCE .ROUTE ; Start 09/28/20 at 11:13; Stop 09/28/20 at 11:13; Status DC Lidocaine HCl (Buffered Lidocaine 1%) 3 ml 1X ONCE IJ Last administered on 09/28/20at 12:04; Start 09/28/20 at 11:30; Stop 09/28/20 at 11:31; Status DC Midazolam HCl (Versed) 2 mg 1X ONCE IV Last administered on 09/28/20at 12:00; Start 09/28/20 at 11:30; Stop 09/28/20 at 11:31; Status DC Fentanyl Citrate (Fentanyl 2ml Vial) 100 mcg 1X ONCE IV Last administered on 09/28/20at 12:00; Start 09/28/20 at 11:30; Stop 09/28/20 at 11:31; Status DC Folic Acid (Folic Acid) 1 mg DAILY PO Last administered on 10/03/20at 09:35; Start 09/30/20 at 10:30 Ascorbic Acid (Vitamin C) 500 mg DAILY PO Last administered on 10/03/20at 09:36; Start 09/30/20 at 10:30 Ondansetron HCl (Zofran) 4 mg STK-MED ONCE .ROUTE ; Start 09/30/20 at 12:57; Stop 09/30/20 at 12:58; Status DC Ondansetron HCl (Zofran) 4 mg PRN Q6HRS PRN IVP NAUSEA/VOMITING Last administered on 09/30/20at 17:23; Start 09/30/20 at 13:15 Acetaminophen (Tylenol) 650 mg PRN Q6HRS PRN PO MILD PAIN / TEMP > 100.3'F Last administered on 10/02/20at 17:18; Start 09/30/20 at 21:30 Iohexol (Omnipaque 300 Mg/ml) 60 ml 1X ONCE IV Last administered on 10/01/20at 07:15; Start 10/01/20 at 07:15; Stop 10/01/20 at 07:17; Status DC Gadoterate Meglumine (Clariscan) 15 ml 1X ONCE IVP Last administered on 10/01/20at 15:30; Start 10/01/20 at 14:30; Stop 10/01/20 at 14:31; Status DC Prednisone (Prednisone) 30 mg DAILY PO Last administered on 10/03/20at 09:37; Start 10/03/20 at 09:00 Active Scripts Active [Pantoprazole] 40 MG Tablet. 40 Mg PO DAILYAC 30 Days Nitrostat (Nitroglycerin) 0.4 Mg Tab.subl 0.4 Mg SL PRN Q5MIN PRN Aspirin Ec (Aspirin) 81 Mg Tablet. 81 Mg PO DAILYWBKFT Reported Namenda (Memantine Hcl) 10 Mg Tablet 10 Mg PO BID Meclizine Hcl 25 Mg Tablet 1 Tab PO BID Allopurinol 300 Mg Tablet 1 Tab PO DAILY Gabapentin 300 Mg Capsule 100 Mg PO DAILY Hydrocodone-Apap 5-325 (Hydrocodone Bit/Acetaminophen) 1 Tab Tablet 1 Tab PO PRN Q6HRS PRN Tylenol (Acetaminophen) 325 Mg Tablet 500 Mg PO PRN Sodium Bicarbonate 650 Mg Tablet 1 Tab PO DAILY Metoprolol Succinate ( Xl ) (Metoprolol Succinate) 25 Mg Tab.er.24h 1 Tab PO DAILY Mucinex (Guaifenesin) 600 Mg Tablet.er 1 Tab PO BID Anoro Ellipta 62.5-25 Mcg Inh (Umeclidinium Brm/Vilanterol Tr) 1 Each Disk.w.dev 1 Each IH DAILY Daliresp (Roflumilast) 500 Mcg Tablet 500 Mcg PO DAILY Duoneb 0.5-3(2.5) Mg/3 Ml (Albuterol/Ipratropium) 3 Ml Ampul.neb 3 Ml NEB TID Cyclobenzaprine Hcl 10 Mg Tablet 1 Tab PO PRN TID Allergies Allergies: Coded Allergies: tomato (Verified Allergy, Severe, 09/08/16) strawberry (Verified Allergy, Intermediate, 09/07/16) Physical Exam General: Alert, Oriented X3, Cooperative Lungs: Other (Clear with a few rhonchi) Heart: Regular rate, Normal S1, Normal S2 Abdomen: Normal bowel sounds, Soft, No tenderness, No hepatosplenomegaly, No masses Neuro: Normal speech, Other (Mild tremor) Psych/Mental Status: Mental status NL Vitals VITALS Vital Signs Date Time Temp Pulse Resp B/P (MAP) Pulse Ox O2 Delivery O2 Flow Rate FiO2 10/03/20 11:00 97.8 88 18 122/62 (82) 100 Nasal Cannula 1.0 97.8 Labs Labs Laboratory Tests Test 10/01/20 16:00 10/01/20 16:57 10/01/20 20:24 10/02/20 14:41 Sodium Level 141 mmol/L (136-145) Potassium Level 4.5 mmol/L (3.5-5.1) Chloride Level 108 mmol/L (98-107) Carbon Dioxide Level 20 mmol/L (21-32) Anion Gap 13 (6-14) Blood Urea Nitrogen 37 mg/dL (7-20) Creatinine 2.0 mg/dL (0.6-1.0) Estimated GFR (Cockcroft-Gault) 28.8 BUN/Creatinine Ratio 19 (6-20) Glucose Level 97 mg/dL (70-99) Uric Acid 2.3 mg/dL (2.6-6.0) Calcium Level 8.8 mg/dL (8.5-10.1) Total Bilirubin 0.2 mg/dL (0.2-1.0) Aspartate Amino Transf (AST/SGOT) 34 U/L (15-37) Alanine Aminotransferase (ALT/SGPT) 31 U/L (14-59) Alkaline Phosphatase 110 U/L (46-116) Lactate Dehydrogenase 266 U/L (81-234) Total Protein 5.8 g/dL (6.4-8.2) Albumin 2.7 g/dL (3.4-5.0) Albumin/Globulin Ratio 0.9 (1.0-1.7) Glucose (Fingerstick) 98 mg/dL (70-99) 113 mg/dL (70-99) 95 mg/dL (70-99) Test 10/03/20 03:30 White Blood Count 11.2 x10^3/uL (4.0-11.0) Red Blood Count 3.44 x10^6/uL (3.50-5.40) Hemoglobin 10.1 g/dL (12.0-15.5) Hematocrit 32.1 % (36.0-47.0) Mean Corpuscular Volume 93 fL (79-100) Mean Corpuscular Hemoglobin 29 pg (25-35) Mean Corpuscular Hemoglobin Concent 32 g/dL (31-37) Red Cell Distribution Width 17.3 % (11.5-14.5) Platelet Count 173 x10^3/uL (140-400) Laboratory Tests Test 10/02/20 14:41 10/03/20 03:30 Glucose (Fingerstick) 95 mg/dL (70-99) White Blood Count 11.2 x10^3/uL (4.0-11.0) Red Blood Count 3.44 x10^6/uL (3.50-5.40) Hemoglobin 10.1 g/dL (12.0-15.5) Hematocrit 32.1 % (36.0-47.0) Mean Corpuscular Volume 93 fL (79-100) Mean Corpuscular Hemoglobin 29 pg (25-35) Mean Corpuscular Hemoglobin Concent 32 g/dL (31-37) Red Cell Distribution Width 17.3 % (11.5-14.5) Platelet Count 173 x10^3/uL (140-400) Images Images CT Findings: Lower chest: Partial consolidation in the visualized portion of the left lower lobe is redemonstrated. There is new small left pleural effusion. Scarring or atelectasis in the right lung base along with some areas of micronodularity are unchanged from at least 07/13/2018. Heart is normal in size. Liver: The liver is heterogeneous with innumerable hypoattenuating mass is, the largest measuring 1.6 cm The dome of the liver adjacent to the inferior vena cava. Gallbladder/Biliary Tree: The gallbladder surgically absent. Bile ducts are normal. Pancreas: Normal. Spleen: No splenomegaly. There are calcified splenic granulomas. Adrenal Glands: Normal. Kidneys/Ureters/Bladder: Kidneys are small but enhance symmetrically. There is a 4 cm simple cyst in the superior right renal pole. No hydronephrosis. Ureters are normal. Bladder is mostly obscured. No hydronephrosis. Reproductive Organs: Uterus and right adnexa are mostly obscured by artifact from a right hip prosthesis. Stomach, small bowel, and colon: Stomach, small bowel, and colon are unremarkable. There is fluid in the colon. The appendix is not definitively visualized. Vasculature: Abdominal aorta is tortuous but normal in caliber. Moderate calcified aortoiliac atherosclerosis. Lymph Nodes: No lymphadenopathy. Peritoneum and retroperitoneum: No free fluid or free air. Bones: There is a right hip prosthesis. Moderate levoscoliosis lumbar spine and degenerative disc disease. Impression: 1. Innumerable small hepatic metastases, the largest measuring approximately 1.6 cm. 2. New small left pleural effusion. Otherwise unchanged appearance of the lung bases. Electronically signed by: Gabriella Batista MD (10/01/2020 10:05 AM) [id number] Assessment/Plan Assessment/Plan Blood in the stool yesterday. Relatively painless and unrecognized by the patient but noted by the family and nursing staff. Her hemoglobin has remained stable overnight. Many possible causes for this including hemorrhoids (although she describes a previous hemorrhoidectomy), proctitis, diverticulosis, AVM, occult malignancy or polyps however with her ongoing diagnosis of small cell cancer of the lung, intervention (such as colonoscopy or further x-rays) should be minimized due to the lack of therapeutic options available to her if we were to find a concerning polyp or malignancy. This should be reevaluated depending on her response to treatment for her lung cancer and the recurrence of any bleeding in her stool. Poor appetite. Most likely related to her underlying cancer. I encouraged her to try different supplements to find something that she will take to hopefully maintain her nutritional status during her treatment phase. Plan: Monitor her bowel function and bleeding but do not recommend intervention such as colonoscopy at this time. CALEB POLLARD MD Oct 03, 2020 13:07
[2020-10-03 15:00] VITALS: BP 118/65
[2020-10-03] MEDS: ACETAMINOPHEN 325 MG TABLET. PO PRN (16:27)
[2020-10-03 19:00] VITALS: BP 129/65
--- NOTE | 2020-10-03 21:19 | PN ---
DATE: 10/03/2020 LOCATION: She is in room 658. SUBJECTIVE: This 85-year-old female remains hospitalized due to generalized weakness and encephalopathy on exam. 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 She is fully aware of pathology and the implications of the same. We are waiting on a bone scan for staging prior to discharge, so Oncology can decide what treatment is going to happen post-discharge. OBJECTIVE: VITAL SIGNS: Stable. She is afebrile. CHEST: Clear. HEART: Regular. ABDOMEN: Benign. IMPRESSION: 1. Metastatic small cell carcinoma of the lung. 2. [id number] respiratory failure with exacerbation of chronic obstructive pulmonary disease, improved. 3. Dehydration, encephalopathy, improved. 4. Ongoing tremor. PLAN: I did look at the order history and for some reason, the bone scan was canceled. I have reordered it, Oncology should see tomorrow. intermediate evaluation is in and the patient otherwise will continue the same. MALACHI DR: Sherrie TID: [id number]
[2020-10-03 23:05] VITALS: BP 116/57
[2020-10-04 03:14] VITALS: BP 129/58
[2020-10-04] MEDS: IPRATRPIUM/ALBUTEROL 0.5/2.5MG 3 ML NEBU. NEB SCH ×3 (07:18→19:35)
[2020-10-04] MEDS: BUDESONIDE 0.5 MG/2 ML NEBU. NEB SCH ×2 (07:18→19:35)
[2020-10-04 07:30] VITALS: BP 147/74
[2020-10-04] MEDS: PANTOPRAZOLE 40 MG TABLET.DR. PO SCH (07:57)
[2020-10-04] MEDS: FOLIC ACID 1 MG TABLET. PO SCH (08:58)
[2020-10-04] MEDS: ASCORBIC ACID 500 MG TABLET PO SCH (08:58)
[2020-10-04] MEDS: GABAPENTIN 100 MG CAPSULE. PO SCH (08:58)
[2020-10-04] MEDS: METOPROLOL SUCC 24HR ER 50 MG TAB.ER.24H. PO SCH (08:58)
[2020-10-04] MEDS: MEMANTINE 10 MG TABLET. PO SCH ×2 (08:58→19:40)
[2020-10-04] MEDS: ROFLUMILAST 500 MCG TABLET. PO SCH (08:58)
[2020-10-04] MEDS: predniSONE 10 MG TABLET PO SCH (08:58)
[2020-10-04] MEDS: ALLOPURINOL 300 MG TABLET. PO SCH (08:58)
--- NOTE | 2020-10-04 09:46 | PDOC ---
PULMONARY PROGRESS NOTES DATE: 10/04/20 TIME: 09:46 Subjective Pt. resting on 1 liter NC no SOB or cough or CP Vitals Vital Signs Date Time Temp Pulse Resp B/P (MAP) Pulse Ox O2 Delivery O2 Flow Rate FiO2 10/04/20 09:00 89 147/74 10/04/20 08:00 Nasal Cannula 2.0 10/04/20 07:30 97.6 16 95 97.6 ROS: No Nausea, No Chest Pain, No Abdominal Pain, No Increase Cough General: Alert, No acute distress HEENT: Other (nc at perrl ) Lungs: Other (b lat diminished bs) Cardiovascular: S1, S2 Abdomen: Soft, Non-tender Neuro Exam: Alert, Oriented Extremities: No Edema Skin: Warm, Dry Labs Laboratory Tests Test 10/02/20 14:41 10/03/20 03:30 Glucose (Fingerstick) 95 mg/dL (70-99) White Blood Count 11.2 x10^3/uL (4.0-11.0) Red Blood Count 3.44 x10^6/uL (3.50-5.40) Hemoglobin 10.1 g/dL (12.0-15.5) Hematocrit 32.1 % (36.0-47.0) Mean Corpuscular Volume 93 fL (79-100) Mean Corpuscular Hemoglobin 29 pg (25-35) Mean Corpuscular Hemoglobin Concent 32 g/dL (31-37) Red Cell Distribution Width 17.3 % (11.5-14.5) Platelet Count 173 x10^3/uL (140-400) Medications Active Scripts Medications Dose Route/Sig Max Daily Dose Days Date Category Namenda (Memantine Hcl) 10 Mg Tablet 10 Mg PO BID 09/24/20 Reported Meclizine Hcl 25 Mg Tablet 1 Tab PO BID 09/24/20 Reported Allopurinol 300 Mg Tablet 1 Tab PO DAILY 09/24/20 Reported Gabapentin 300 Mg Capsule 100 Mg PO DAILY 09/24/20 Reported Hydrocodone-Apap 5-325 (Hydrocodone Bit/Acetaminophen) 1 Tab Tablet 1 Tab PO PRN Q6HRS PRN 12/11/18 Reported Tylenol (Acetaminophen) 325 Mg Tablet 500 Mg PO PRN 08/08/18 Reported Sodium Bicarbonate 650 Mg Tablet 1 Tab PO DAILY 08/08/18 Reported Metoprolol Succinate ( Xl ) (Metoprolol Succinate) 25 Mg Tab.er.24h 1 Tab PO DAILY 08/08/18 Reported Mucinex (Guaifenesin) 600 Mg Tablet.er 1 Tab PO BID 08/08/18 Reported [Pantoprazole] 40 MG Tablet.dr 40 Mg PO DAILYAC 30 07/18/18 Rx Anoro Ellipta 62.5-25 Mcg Inh (Umeclidinium Brm/Vilanterol Tr) 1 Each Disk.w.dev 1 Each IH DAILY 07/13/18 Reported Daliresp (Roflumilast) 500 Mcg Tablet 500 Mcg PO DAILY 06/16/17 Reported Nitrostat (Nitroglycerin) 0.4 Mg Tab.subl 0.4 Mg SL PRN Q5MIN PRN 06/02/16 Rx Aspirin Ec (Aspirin) 81 Mg Tablet.dr 81 Mg PO DAILYWBKFT 06/02/16 Rx Duoneb 0.5-3(2.5) Mg/3 Ml (Albuterol/Ipratropium) 3 Ml Ampul.neb 3 Ml NEB TID 05/31/16 Reported Cyclobenzaprine Hcl 10 Mg Tablet 1 Tab PO PRN TID 01/05/[address] of chest 1. Increased size of a left lower lobe mass from 07/20/2020 now measuring approximately 4.3 x 3.6 x 3.8 cm compared to 3.8 x 2.1 x 1.6 cm. New separate nodule adjacent to the dominant mass abutting the fissure measures 0.9 cm. Additionally, development of mediastinal and left hilar adenopathy as outlined in the body the report. The findings are consistent with malignancy either a new primary or pulmonary metastasis given history of right lung cancer. 2. Chronic observations detailed in the body the report. Impression . IMPRESSION: 1. Acute on chronic respiratory failure secondary to acute exacerbation of chronic obstructive pulmonary disease, acute bronchitis, enlarging lung mass 2. Abnormal chest x-ray/ct of chest 1. Increased size of a left lower lobe mass from 07/20/2020 now measuring approximately 4.3 x 3.6 x 3.8 cm compared to 3.8 x 2.1 x 1.6 cm. New separate nodule adjacent to the dominant mass abutting the fissure measures 0.9 cm. Additionally, development of mediastinal and left hilar adenopathy as outlined in the body the report. 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 Chronic observations detailed in the body the report.. 3. Chronic obstructive pulmonary disease with acute exacerbation--resolved 4. Acute bronchitis versus pneumonia. 5. History of lung cancer status post right upper lobectomy. 6. Ex-smoker. 7. Hypertension. 8. Debility. 9. Acute kidney injury.--resolved Plan . PLAN AND RECOMMENDATIONS: Titrate FIO2 to keep O2 saturation 92%, currently on 1 liter NC Continue bronchodilator including pulmicort prednisone to 30 mg daily with slow taper Follow GI recs -- Monitor HGB S/P LLL lung bx --- finding consistent with Small cell lung Cancer Follow medical oncology recs- planned for MRI of brain was negative for mets and bone scan was also negative for mets --- considering chemotherapy DVT/GI PPX PT/OT Social work for DC planning -- planned to discharge to [facility] D/W RN and RACHELL Lepe MD Oct 04, 2020 09:46
[2020-10-04 11:00] VITALS: BP 116/69
--- NOTE | 2020-10-04 12:55 | NUR ---
SW following. Discussed with RN, pt from home with dtr, uses oxygen at home. Pt having a bone scan to determine staging prior to discharge. SW notified [facility], to have them submit for insurance auth. SW will continue to follow.
--- NOTE | 2020-10-04 14:53 | PN ---
DATE: 10/04/2020 DAILY PROGRESS NOTE LOCATION: She is in room 658. SUBJECTIVE: This 85-year-old female remains hospitalized. With an impending bone scan today to try to further stage her stage 4 small cell carcinoma of the lung prior to deciding on definitive therapy. She voices no major complaints, but is agreeable to long-term at this point in time for strengthening prior to discharge home. OBJECTIVE: VITAL SIGNS: Stable. She is afebrile. GENERAL: She is awake and alert. CHEST: Clear. HEART: Regular. ABDOMEN: Benign. IMPRESSION: 1. Metastatic small cell carcinoma of the lung. 2. Acute on chronic respiratory failure with exacerbation of chronic obstructive pulmonary disease, improved. 3. Dehydration, encephalopathy, improved. 4. Ongoing tremor. PLAN: Bone scan today with plans to follow ____ in the next day or so. MIKE/RIDDHI DR: Sherrie TID: [id number]
[2020-10-04] MEDS: IV DEXTROSE 5 %-0.45 % NACL 1,000 ML IV SCH (14:57)
[2020-10-04 15:03] VITALS: BP 130/66
--- NOTE | 2020-10-04 15:09 | RAD ---
EXAM: BONE SCINTIGRAPHY. HISTORY: Small cell lung cancer. TECHNIQUE: Following the intravenous injection of 25 mCi of Tc-99m labeled methylene diphosphonate (M DP), delayed images of the whole body were performed in anterior and posterior projections. COMPARISON: 10/01/2020. FINDINGS: Images are windowed node too narrowly, lowering sensitivity for osseous lesions along the s pine, sternum, shoulders and maxillae. No foci of intense uptake suggestive of osseous metastatic dis ease are identified. A photopenic defect at the right proximal femur is consistent with an arthroplasty. Degenerative upta ke is noted at the left greater than right knees. Additional degenerative uptake is noted along the l ower lumbar spine. IMPRESSION: 1. Sensitivity is limited by technical factors as above. No scintigraphic evidence of osseous metasta tic disease. Electronically signed by: Heather Torres MD (10/04/2020 3:06 PM) [id number]
--- NOTE | 2020-10-04 16:54 | PDOC ---
GI PROGRESS NOTES Date of Service: Date/Time DATE: 10/04/20 TIME: 16:52 Subjective Subjective blood in stool- none over last 24 hours per patient Objective Vitals Vital Signs Date Time Temp Pulse Resp B/P (MAP) Pulse Ox O2 Delivery O2 Flow Rate FiO2 10/04/20 15:03 98.2 86 18 130/66 (87) 96 Nasal Cannula 1.0 98.2 10/04/20 13:59 100 Room Air 10/04/20 11:00 97.7 98 20 116/69 (85) 92 Nasal Cannula 1.0 97.7 10/04/20 09:00 89 147/74 10/04/20 08:58 89 147/74 10/04/20 08:00 Nasal Cannula 2.0 10/04/20 07:30 97.6 89 16 147/74 (98) 95 Nasal Cannula 1.0 97.6 10/04/20 07:18 100 Nasal Cannula 2.0 10/04/20 03:14 97.3 86 18 129/58 (81) 96 Nasal Cannula 97.3 10/03/20 23:05 98.0 89 18 116/57 (76) 93 Nasal Cannula 98.0 10/03/20 21:04 98 Nasal Cannula 1.0 10/03/20 20:10 Nasal Cannula 2.0 10/03/20 19:00 97.9 84 18 129/65 (86) 95 Nasal Cannula 97.9 Physical Exam Physical Exam alert tremor chest- clear abd- soft non tender Assessment Assessment Small amount of blood in stool over weekend- Hgb drifting down but slowly Plan Plan monitor- based on other diagnoses, and lack of active or severe bleeding, will hold on testing - such as bleeding scan or colonoscopy Justicifation of Admission Dx: Justifications for Admission: Justification of Admission Dx: N/A CALEB POLLARD MD Oct 04, 2020 16:54
[2020-10-04] MEDS: HYDROcodone/APAP 5/325MG 1 TAB TABLET PO PRN (19:40)
[2020-10-04 19:50] VITALS: BP 121/58
[2020-10-04 23:26] VITALS: BP 122/53
[2020-10-05 03:09] VITALS: BP 105/55
[2020-10-05] MEDS: PANTOPRAZOLE 40 MG TABLET.DR. PO SCH (05:56)
[2020-10-05] MEDS: IPRATRPIUM/ALBUTEROL 0.5/2.5MG 3 ML NEBU. NEB SCH ×2 (07:15→11:21)
[2020-10-05] MEDS: BUDESONIDE 0.5 MG/2 ML NEBU. NEB SCH (07:15)
[2020-10-05 07:47] VITALS: BP 135/65
[2020-10-05] MEDS ORDERED: PRED-220 PO (09:05)
[2020-10-05] MEDS ORDERED: AMLO-186 PO (09:05)
--- NOTE | 2020-10-05 09:06 | SNU/HH DC ---
DISCHARGE ORDERS DISCHARGE INFORMATION: DISCHARGE DATE: Oct 05, 2020 FINAL DIAGNOSIS Problems Medical Problems: (1) Lung mass Status: Acute (2) Pneumonia Status: Acute (3) Shortness of breath Status: Acute CONDITION ON DISCHARGE: Stable CODE STATUS: Code Status: Full HALF-WAY: SNF STAY <30 DAYS: Yes HOSPICE: HOSPICE: No HOSPICE EVAL & TREAT: No LTAC: ADMIT TO LTAC: No POST DISCHARGE ORDERS: ACTIVITY ORDERS: Activity as tolerated WEIGHT BEARING STATUS: No restrictions DIET AFTER DISCHARGE: Regular WOUND/INCISION CARE: No wound care needed CHECKS AFTER DISCHARGE: CHECKS AFTER DISCHARGE: Check blood press - daily COMMENTS: back TREATMENT/EQUIPMENT ORDERS: ADAPTIVE EQUIPMENT NEEDED: None RESPIRATORY EQUIPMENT NEEDED: Oxygen Physical Therapy For: Evalulation/Treatment Occupational Therapy For: Evaluation/Treatment DISCHARGE MEDICATIONS: Home Meds Active Scripts Prednisone (PREDNISONE ) 10 Mg Tablet, 30 MG PO DAILY for copd for 10 Days, #30 TAB Prov:LIANG WILDER MD 10/05/20 Amlodipine Besylate (AMLODIPINE BESYLATE) 5 Mg Tablet, 5 MG PO DAILY for hypertension for 30 Days, #30 TAB Prov:LIANG WILDER MD 10/05/20 [Pantoprazole] 40 MG TABLET. No Conflict Check, 40 MG PO DAILYAC for dyspepsia for 30 Days, #30 Prov:LIANG WILDER MD 07/18/18 Nitroglycerin (NITROSTAT) 0.4 Mg Tab.subl, 0.4 MG SL PRN Q5MIN PRN for CHEST PAIN, #10 TAB 3 Refills Prov:LIANG WILDER MD 06/02/16 Aspirin (ASPIRIN EC) 81 Mg Tablet., 81 MG PO DAILYWBKFT, #30 TAB 6 Refills Prov:LIANG WILDER MD 06/02/16 Reported Medications Memantine Hcl (NAMENDA) 10 Mg Tablet, 10 MG PO BID for deentia, TAB 09/24/20 Meclizine Hcl (MECLIZINE HCL) 25 Mg Tablet, 1 TAB PO BID for vertigo, #90 TAB 09/24/20 Allopurinol (ALLOPURINOL) 300 Mg Tablet, 1 TAB PO DAILY for gout, #30 TAB 5 Refills 09/24/20 Gabapentin (GABAPENTIN) 300 Mg Capsule, 100 MG PO DAILY for NEUROGENIC PAIN, CAP 09/24/20 Hydrocodone Bit/Acetaminophen (HYDROCODONE-APAP 5-325 ) 1 Tab Tablet, 1 TAB PO PRN Q6HRS PRN for PAIN, TAB 0 Refills 12/11/18 Acetaminophen (TYLENOL) 325 Mg Tablet, 500 MG PO PRN for PAIN, TAB 08/08/18 Sodium Bicarbonate (SODIUM BICARBONATE) 650 Mg Tablet, 1 TAB PO DAILY for SUPPLEMENT, #60 TAB 5 Refills 08/08/18 Metoprolol Succinate (METOPROLOL SUCCINATE ( XL )) 25 Mg Tab.er.24h, 1 TAB PO DAILY for Blood Pressure, TAB 08/08/18 Guaifenesin (MUCINEX) 600 Mg Tablet.er, 1 TAB PO BID for COPD, TAB 08/08/18 Roflumilast (DALIRESP) 500 Mcg Tablet, 500 MCG PO DAILY for anti-inflammatory, TAB 06/16/17 Ipratropium/Albuterol Sulfate (DUONEB 0.5-3(2.5) MG/3 ML) 3 Ml Ampul.neb, 3 ML NEB TID for COPD, EACH 05/31/16 Discontinued Reported Medications Umeclidinium Brm/Vilanterol Tr (ANORO ELLIPTA 62.5-25 MCG INH) 1 Each Disk.w.dev, 1 EACH IH DAILY for COPD, INH 07/13/18 Cyclobenzaprine Hcl (CYCLOBENZAPRINE HCL) 10 Mg Tablet, 1 TAB PO PRN TID for MUSCLE SPAMS, TAB 01/05/15 LIANG WILDER MD Oct 05, 2020 09:06
[2020-10-05] MEDS: ROFLUMILAST 500 MCG TABLET. PO SCH (09:07)
[2020-10-05] MEDS: predniSONE 10 MG TABLET PO SCH (09:07)
[2020-10-05] MEDS: ALLOPURINOL 300 MG TABLET. PO SCH (09:07)
[2020-10-05] MEDS: MEMANTINE 10 MG TABLET. PO SCH (09:07)
[2020-10-05] MEDS: METOPROLOL SUCC 24HR ER 50 MG TAB.ER.24H. PO SCH (09:07)
[2020-10-05] MEDS: GABAPENTIN 100 MG CAPSULE. PO SCH (09:07)
[2020-10-05] MEDS: ASCORBIC ACID 500 MG TABLET PO SCH (09:07)
[2020-10-05] MEDS: FOLIC ACID 1 MG TABLET. PO SCH (09:07)
[2020-10-05 09:08] VITALS: BP 135/65
--- NOTE | 2020-10-05 10:13 | PDOC ---
PULMONARY PROGRESS NOTES DATE: 10/05/20 TIME: 10:13 Subjective Pt. resting on 1 liter NC no SOB or cough or CP Vitals Vital Signs Date Time Temp Pulse Resp B/P (MAP) Pulse Ox O2 Delivery O2 Flow Rate FiO2 10/05/20 09:08 94 135/65 10/05/20 08:30 Nasal Cannula 1.0 10/05/20 07:47 97.5 18 96 97.5 ROS: No Nausea, No Chest Pain, No Abdominal Pain, No Increase Cough General: Alert, No acute distress HEENT: Other (nc at perrl ) Lungs: Other (b lat diminished bs) Cardiovascular: S1, S2 Abdomen: Soft, Non-tender Neuro Exam: Alert, Oriented Extremities: No Edema Skin: Warm, Dry Medications Active Scripts Medications Dose Route/Sig Max Daily Dose Days Date Category Namenda (Memantine Hcl) 10 Mg Tablet 10 Mg PO BID 09/24/20 Reported Meclizine Hcl 25 Mg Tablet 1 Tab PO BID 09/24/20 Reported Allopurinol 300 Mg Tablet 1 Tab PO DAILY 09/24/20 Reported Gabapentin 300 Mg Capsule 100 Mg PO DAILY 09/24/20 Reported Hydrocodone-Apap 5-325 (Hydrocodone Bit/Acetaminophen) 1 Tab Tablet 1 Tab PO PRN Q6HRS PRN 12/11/18 Reported Tylenol (Acetaminophen) 325 Mg Tablet 500 Mg PO PRN 08/08/18 Reported Sodium Bicarbonate 650 Mg Tablet 1 Tab PO DAILY 08/08/18 Reported Metoprolol Succinate ( Xl ) (Metoprolol Succinate) 25 Mg Tab.er.24h 1 Tab PO DAILY 08/08/18 Reported Mucinex (Guaifenesin) 600 Mg Tablet.er 1 Tab PO BID 08/08/18 Reported [Pantoprazole] 40 MG Tablet.dr 40 Mg PO DAILYAC 30 07/18/18 Rx Anoro Ellipta 62.5-25 Mcg Inh (Umeclidinium Brm/Vilanterol Tr) 1 Each Disk.w.dev 1 Each IH DAILY 07/13/18 Reported Daliresp (Roflumilast) 500 Mcg Tablet 500 Mcg PO DAILY 06/16/17 Reported Nitrostat (Nitroglycerin) 0.4 Mg Tab.subl 0.4 Mg SL PRN Q5MIN PRN 06/02/16 Rx Aspirin Ec (Aspirin) 81 Mg Tablet.dr 81 Mg PO DAILYWBKFT 06/02/16 Rx Duoneb 0.5-3(2.5) Mg/3 Ml (Albuterol/Ipratropium) 3 Ml Ampul.neb 3 Ml NEB TID 05/31/16 Reported Cyclobenzaprine Hcl 10 Mg Tablet 1 Tab PO PRN TID 01/05/[address] of chest 1. Increased size of a left lower lobe mass from 07/20/2020 now measuring approximately 4.3 x 3.6 x 3.8 cm compared to 3.8 x 2.1 x 1.6 cm. New separate nodule adjacent to the dominant mass abutting the fissure measures 0.9 cm. Additionally, development of mediastinal and left hilar adenopathy as outlined in the body the report. The findings are consistent with malignancy either a new primary or pulmonary metastasis given history of right lung cancer. 2. Chronic observations detailed in the body the report. Impression . IMPRESSION: 1. Acute on chronic respiratory failure secondary to acute exacerbation of chronic obstructive pulmonary disease, acute bronchitis, enlarging lung mass 2. Abnormal chest x-ray/ct of chest 1. Increased size of a left lower lobe mass from 07/20/2020 now measuring approximately 4.3 x 3.6 x 3.8 cm compared to 3.8 x 2.1 x 1.6 cm. New separate nodule adjacent to the dominant mass abutting the fissure measures 0.9 cm. Additionally, development of mediastinal and left hilar adenopathy as outlined in the body the report. 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 Chronic observations detailed in the body the report.. 3. Chronic obstructive pulmonary disease with acute exacerbation--resolved 4. Acute bronchitis versus pneumonia. 5. History of lung cancer status post right upper lobectomy. 6. Ex-smoker. 7. Hypertension. 8. Debility. 9. Acute kidney injury.--resolved Plan . PLAN AND RECOMMENDATIONS: Titrate FIO2 to keep O2 saturation 92%, currently on 1 liter NC Continue bronchodilator including pulmicort prednisone to 30 mg daily with slow taper Follow GI recs -- Monitor HGB S/P LLL lung bx --- finding consistent with Small cell lung Cancer Follow medical oncology recs- planned for MRI of brain was negative for mets and bone scan was also negative for mets --- considering chemotherapy DVT/GI PPX PT/OT Social work for DC planning -- planned to discharge to [facility] D/W RN and RACHELL Lepe MD Oct 05, 2020 10:13
--- NOTE | 2020-10-05 10:19 | NUR ---
SW following. Discussed with RN, discharge orders for pt to go to [facility] today. SW verified with pt this was still the plan, pt agrees. SW faxed discharge orders, transportation arranged for 1100. RN and pt's daughter, Shabana notified. Dr. Brenner requested Oncology contact him with the treatment plan, RN notified. No further SW needs.
--- NOTE | 2020-10-05 10:25 | NUR ---
Pickup time is scheduled for 1100 for patient to go to [facility] via van by [facility] transport- report called to VIGNESH Elizalde at [phone].
--- NOTE | 2020-10-05 11:35 | NUR ---
Discharge Note: JOSE ALFREDO BOWSER [address] Discharge instructions and discharge home medications reviewed with Other facility and a copy given. All questions have been answered and understanding verbalized. The following instructions and handouts were given: discharge instructions, follow up recommendations. Discontinued lines and drains: peripheral IV discontinued intact. Patient discharged to Longterm Facility with [facility] Transport Personnel via Wheelchair off unit by this RN.
--- NOTE | 2020-10-05 15:02 | DS ---
DATE OF DISCHARGE: 10/05/2020 PRIMARY DIAGNOSIS: Metastatic small cell carcinoma of the lung. ADDITIONAL DIAGNOSES: Weakness, dehydration and encephalopathy, likely related to the same, chronic obstructive pulmonary disease, back pain. CHIEF COMPLAINT AND HISTORY OF PRESENT ILLNESS: This 85-year-old female was admitted to the Emergency Room with encephalopathy, weakness, anorexia and inability to self-care. She was also found to be dehydrated. SUMMARY OF STAY: The patient was admitted, hydrated, improved in her mental status with the same. She was found to have a left lower lung mass incidentally on admission. Workup including biopsy showed this to be small cell, which was metastatic to the liver on CT scanning that showed an MRI of the head without any metastasis, bone scan was negative. Oncology, will need further treatment as an outpatient. The patient has decided to try treatment as long as it is tolerated. She was weak enough, it was felt that she should go to prison at discharge. This was accomplished. DISPOSITION: The patient is discharged to prison. Regular diet. Activity as tolerated. PT and OT to follow. We will follow her there. Med rec has been completed and is addressed. [place]OR[place]/RIDDHI DR: Sherrie TID: [id number]
[2020-10-13] MEDS ORDERED: IBUP-1007 PO (04:19)
== END 2020-10-05 11:40 | DRG 180 ==
LOC: ER 16:05 → 6 SOUTH 20:25
PROVIDERS: ADMIT Family Medicine; ATTEND Family Medicine
PROC: 0BBJ3ZX Excision of Left Lower Lung Lobe, Percutaneous Approach, Diagnostic (ICD-10-PCS; principal; 2020-10-01)
DX: C34.90 Malignant neoplasm of unspecified part of unspecified bronchus or lung (principal); J96.20 Acute and chronic respiratory failure, unspecified whether with hypoxia or hypercapnia; J18.9 Pneumonia, unspecified organism; J44.1 Chronic obstructive pulmonary disease with (acute) exacerbation; J44.0 Chronic obstructive pulmonary disease with (acute) lower respiratory infection; G93.40 Encephalopathy, unspecified; C78.7 Secondary malignant neoplasm of liver and intrahepatic bile duct; N17.9 Acute kidney failure, unspecified; Z91.018 Allergy to other foods; J20.9 Acute bronchitis, unspecified; I10 Essential (primary) hypertension; F03.90 Unspecified dementia, unspecified severity, without behavioral disturbance, psychotic disturbance, mood disturbance, and anxiety; E86.0 Dehydration; Z90.49 Acquired absence of other specified parts of digestive tract; Z87.891 Personal history of nicotine dependence; Z85.118 Personal history of other malignant neoplasm of bronchus and lung; R53.81 Other malaise; Z90.2 Acquired absence of lung [part of]; R59.0 Localized enlarged lymph nodes; Z82.49 Family history of ischemic heart disease and other diseases of the circulatory system; Z98.49 Cataract extraction status, unspecified eye; Z90.710 Acquired absence of both cervix and uterus; Z96.649 Presence of unspecified artificial hip joint; D3A.8 Other benign neuroendocrine tumors
CPT/HCPCS: 32408; 36415; 70450; 70553; 71045; 71250; 74177; 78306; 78580; 80048; 80053; 80076; 80307; 80329; 81001; 82378; 82550; 82962; 83605; 83615; 83735; 84443; 84484; 84550; 85025; 85027; 85610; 87040; 88305; 88341; 88342; 93005; 94640; 94760; 96360; 96361; 99152; 99153; A9503; A9540; A9575; J0696; J1650; J2250; J2405; J2920; J3010; J3490; J7030; J7042; J7512; Q9967; 95992-GP; 97110-GP; 97530-GO; 97530-GP; 97535-GO; 99285-25; G0378; G0480; J7626

== ENCOUNTER → 2020-10-18 | Outpatient (CLI) | payer MEDICARE, MEDICAID ==
[2020-10-15 17:15] VITALS: BP 112/68
[~2020-10-18] MED LIST changes: +AMLO-186 PO; +GABA300C18 PO; +IBUP-1007 PO; +MEMA10TA PO; +PRED-220 PO
[2020-10-18 10:41] LABS: CALCIUM 8.4 mg/dL (8.5-10.1); CREATININE 1.2 mg/dL (0.6-1.0); GFR 51.9; POTASSIUM 3.6 mmol/L (3.5-5.1)
[2020-10-18 10:48] LABS: BASO % 0 % (0-3); EOS % 0 % (0-3); HEMATOCRIT 31.8 % (36.0-47.0); HEMOGLOBIN 10.3 g/dL (12.0-15.5); LYMPH # 0.5 x10^3/uL (1.0-4.8); LYMPH % 7 % (24-48); MEAN CORPUSCULAR HEMOGLOBIN 30 pg (25-35); MEAN CORPUSCULAR HGB CONC 33 g/dL (31-37); MEAN CORPUSCULAR VOLUME 93 fL (79-100); MONO # 0.2 x10^3/uL (0.0-1.1); MONO % 3 % (0-9); NEUT # 6.4 x10^3/uL (1.8-7.7); NEUT % 89 % (31-73); PLATELET COUNT 114 x10^3/uL (140-400); RED BLOOD COUNT 3.41 x10^6/uL (3.50-5.40); RED CELL DISTRIBUTION WIDTH 18.9 % (11.5-14.5); WHITE BLOOD COUNT 7.1 x10^3/uL (4.0-11.0)
[2020-10-18 10:49] LABS: ALBUMIN 2.5 g/dL (3.4-5.0); ALBUMIN/GLOBULIN RATIO 0.9 (1.0-1.7); TOTAL BILIRUBIN 0.4 mg/dL (0.2-1.0); TOTAL PROTEIN 5.4 g/dL (6.4-8.2)
== END ==
LOC: ONCLAB 09:05
PROVIDERS: ATTEND Internal Medicine Hematology & Oncology
DX: C34.12 Malignant neoplasm of upper lobe, left bronchus or lung (principal)
CPT/HCPCS: 36415; 80053; 85025

== ENCOUNTER → 2020-10-20 | Outpatient (CLI) | payer MEDICARE, MEDICAID ==
[2020-10-15 17:15] VITALS: BP 112/68
--- NOTE | 2020-10-20 14:06 | RAD ---
PA and lateral chest x-ray compared to portable chest dated October 122020 for cough and congestion. FINDINGS: Consolidation and/or mass in the left lower lung is redemonstrated and grossly stable in overall exte nt. Small pleural effusion may be better. No new lung parenchymal abnormalities is seen. Right Port-A -Cath is present. Extensive scoliosis is seen. Antecedent granulomatous disease. Old healed deformity of the right ribs. IMPRESSION: 1. Persistent left lower lung masslike opacity that may reflect a mass, round atelectasis, or dense c onsolidation. Electronically signed by: Anibal Solomon MD (10/20/2020 2:04 PM) [id number]
== END ==
LOC: RAD 10:12
PROVIDERS: ATTEND Physician Assistant
DX: C34.12 Malignant neoplasm of upper lobe, left bronchus or lung (principal); J90 Pleural effusion, not elsewhere classified; M41.84 Other forms of scoliosis, thoracic region
CPT/HCPCS: 71046

== ENCOUNTER → 2020-10-25 | Outpatient (CLI) | payer MEDICARE, MEDICAID ==
[2020-10-15 17:15] VITALS: BP 112/68
[2020-10-25 11:45] LABS: BASO % 0 % (0-3); EOS % 1 % (0-3); HEMATOCRIT 26.3 % (36.0-47.0); HEMOGLOBIN 8.3 g/dL (12.0-15.5); LYMPH # 0.3 x10^3/uL (1.0-4.8); LYMPH % 82 % (24-48); MEAN CORPUSCULAR HEMOGLOBIN 30 pg (25-35); MEAN CORPUSCULAR HGB CONC 32 g/dL (31-37); MEAN CORPUSCULAR VOLUME 94 fL (79-100); MONO % 6 % (0-9); NEUT % 11 % (31-73); PLATELET COUNT 48 x10^3/uL (140-400); RED CELL DISTRIBUTION WIDTH 18.9 % (11.5-14.5)
[2020-10-25 11:51] LABS: CALCIUM 8.2 mg/dL (8.5-10.1); CREATININE 1.4 mg/dL (0.6-1.0); GFR 43.5; POTASSIUM 4.7 mmol/L (3.5-5.1)
[2020-10-25 11:53] LABS: WHITE BLOOD COUNT 0.4 x10^3/uL (4.0-11.0)
[2020-10-25 11:57] LABS: ALBUMIN 2.4 g/dL (3.4-5.0); ALBUMIN/GLOBULIN RATIO 0.8 (1.0-1.7); TOTAL BILIRUBIN 0.4 mg/dL (0.2-1.0); TOTAL PROTEIN 5.4 g/dL (6.4-8.2)
== END ==
LOC: ONCLAB 09:45
PROVIDERS: ATTEND Internal Medicine Hematology & Oncology
DX: C34.12 Malignant neoplasm of upper lobe, left bronchus or lung (principal)
CPT/HCPCS: 36415; 80053; 85025

== ENCOUNTER 2020-10-26 19:09 | Inpatient (IN) | payer MEDICARE, MEDICAID ==
[~2020-10-26] VITALS: Ht 152.4 cm; Wt 65.6 kg
[~2020-10-26 19:09] MED LIST changes: +CYCL10TA19 PO; -CYCL10TA2 PO
[2020-10-26] MEDS ORDERED: IV NORMAL SALINE 1000ML BAG 1,000 ML IV ONE (19:30)
[2020-10-26] MEDS ORDERED: ONDANSETRON PF 4 MG/2 ML VIAL. IVP ONE (19:30)
--- NOTE | 2020-10-26 19:53 | RAD ---
EXAM: Chest, single view. HISTORY: Shortness of air. COMPARISON: None. FINDINGS: A frontal view of the chest is obtained. There is mild lower lobe predominant increased int erstitial opacity likely due to chronic interstitial change. There is suspected lingular and left. Ri ght lower lobe pleural parenchymal scarring. The heart is normal in size. There is a port catheter wi th the tip in the superior cavoatrial junction. There are chronic superior lateral right rib deformit ies. There is degenerative change involving both shoulders. There is thoracic scoliosis. IMPRESSION: Chronic appearing interstitial changes with suspected superimposed basilar atelectasis or pleural-parenchymal scarring. No consolidated pneumonia is seen. Electronically signed by: Fide Solorio MD (10/26/2020 7:51 PM) IVIS
[2020-10-26 19:54] LABS: BASO % 0 % (0-3); EOS % 0 % (0-3); HEMATOCRIT 24.6 % (36.0-47.0); HEMOGLOBIN 7.8 g/dL (12.0-15.5); LYMPH # 0.2 x10^3/uL (1.0-4.8); LYMPH % 91 % (24-48); MEAN CORPUSCULAR HEMOGLOBIN 30 pg (25-35); MEAN CORPUSCULAR HGB CONC 32 g/dL (31-37); MEAN CORPUSCULAR VOLUME 94 fL (79-100); MONO % 8 % (0-9); NEUT % 1 % (31-73); PLATELET COUNT 28 x10^3/uL (140-400); RED BLOOD COUNT 2.62 x10^6/uL (3.50-5.40); RED CELL DISTRIBUTION WIDTH 18.2 % (11.5-14.5)
[2020-10-26 20:00] LABS: WHITE BLOOD COUNT 0.3 x10^3/uL (4.0-11.0)
[2020-10-26 20:08] LABS: CALCIUM 7.7 mg/dL (8.5-10.1); CREATININE 1.2 mg/dL (0.6-1.0); GFR 51.9; POTASSIUM 4.2 mmol/L (3.5-5.1)
[2020-10-26 20:13] LABS: ALBUMIN 2.1 g/dL (3.4-5.0); ALBUMIN/GLOBULIN RATIO 0.7 (1.0-1.7); MAGNESIUM 1.4 mg/dL (1.8-2.4); TOTAL BILIRUBIN 0.4 mg/dL (0.2-1.0)
[2020-10-26] MEDS ORDERED: CALCIUM GLUCONATE 1,000 MG/10 ML VIAL. IVP ONE (20:30)
[2020-10-26] MEDS ORDERED: MAGNESIUM SULFATE 2GM 50 ML IV ONE (20:30)
[2020-10-26 20:31] LABS: % MONOS 5 % (0-10); % SEGS 2 % (35-66); PLT ESTIMATE DECREASED (ADEQUATE)
[2020-10-26 20:32] LABS: ANISOCYTOSIS SLIGHT; POIKILOCYTOSIS SLIGHT
[2020-10-26 20:36] LABS: % LYMPHS 93 % (24-48)
[2020-10-26 20:54] LABS: BILIRUBIN,URINE NEGATIVE (NEG); CLARITY,URINE CLEAR; COLOR,URINE YELLOW; NITRITE,URINE NEGATIVE (NEG); PROTEIN,URINE NEGATIVE (NEG-TRACE); UROBILINOGEN,URINE 0.2 mg/dL (0.2 mg/dL)
[2020-10-26 21:04] LABS: BACTERIA,URINE 0 /HPF (0-FEW); RBC,URINE 0 /HPF (0-2); WBC,URINE 0 /HPF (0-4)
[2020-10-26] MEDS ORDERED: CEFEPIME HCL IV Push 2 GM VIAL. IVP ONE (21:15)
--- NOTE | 2020-10-26 21:16 | PHYS DOC ---
Past Medical History Past Medical History: Cancer, COPD, Hypertension, Other Additional Past Medical Histor: RIGHT UPPER LOBE LUNG REMOVED Past Surgical History: Appendectomy, Cholecystectomy, Hip Replacement, Other Additional Past Surgical Histo: BACK, EYES, CAPAL TUNNEL; BREAST Smoking Status: Former Smoker Alcohol Use: None Drug Use: None General Adult EDM: Chief Complaint: DIARRHEA HPI: HPI: Patient is a 85 year old female who was brought here by EMS due to nausea vomiting diarrhea with generalized weakness. Patient has history of lung cancer , she is currently under chemo treatment. Her oncologist recently started her on Levaquin because she was found to be neutropenic. Her daughter stated that after the antibiotic started she started having diarrhea. It was reported that patient feels weak. However patient is very poor historian, she says she is not sure why they brought her here. Patient denies any abdominal pain, no chest pain, no trouble breathing. There was no report of fever. Review of Systems: Review of Systems: Constitutional: Denies fever or chills. [] Eyes: Denies change in visual acuity. [] HENT: Denies nasal congestion or sore throat. [] Respiratory: Denies cough or shortness of breath. [] Cardiovascular: Denies chest pain or edema. [] GI: Positive for nausea vomiting diarrhea, no abdominal pain : Denies dysuria. [] Musculoskeletal: Denies back pain or joint pain. [] Integument: Denies rash. [] Neurologic: Denies headache, focal weakness or sensory changes. Positive for general weakness Endocrine: Denies polyuria or polydipsia. [] Lymphatic: Denies swollen glands. [] Psychiatric: Denies depression or anxiety. [] Heart Score: C/O Chest Pain: N/A Risk Factors: Risk Factors: DM, Current or recent (<one month) smoker, HTN, HLP, family history of CAD, obesity. Risk Scores: Score 0 - 3: 2.5% MACE over next 6 weeks - Discharge Home Score 4 - 6: 20.3% MACE over next 6 weeks - Admit for Clinical Observation Score 7 - 10: 72.7% MACE over next 6 weeks - Early Invasive Strategies Current Medications: Current Medications Medications (Trade) Dose Ordered Sig/Fortunato Start Time Stop Time Status Last Admin Dose Admin Calcium Gluconate (Calcium Gluconate) 1,000 mg 1X ONCE 6/29/21 20:30 10/26/20 20:33 DC Magnesium Sulfate 50 ml @ 25 mls/hr 1X ONCE 10/26/20 20:30 10/26/20 22:29 Ondansetron HCl (Zofran) 4 mg 1X ONCE 10/26/20 19:30 10/26/20 19:31 DC 10/26/20 19:51 4 MG Sodium Chloride 1,000 ml @ 1,000 mls/hr 1X ONCE 10/26/20 19:30 10/26/20 20:29 DC 10/26/20 19:51 1,000 MLS/HR Allergies: Allergies: Allergies Coded Allergies Type Severity Reaction Last Updated Verified tomato Allergy Severe 09/08/16 Yes strawberry Allergy Intermediate 09/07/16 Yes Physical Exam: PE: Constitutional: Well developed, well nourished, mild acute distress, confused. HENT: Normocephalic, atraumatic, bilateral external ears normal, oropharynx dried no oral exudates, nose normal. [] Eyes: PERRLA, EOMI, conjunctiva normal, no discharge. [] Neck: Normal range of motion, no tenderness, supple, no stridor. [] Cardiovascular: sinus tachycardia, regular rhythm, no murmur [] Lungs & Thorax: Bilateral breath sounds deminished to auscultation [] Abdomen: Bowel sounds normal, soft, no tenderness, no masses, no pulsatile masses. [] Skin: Warm, dry, no erythema, no rash. [] Back: No tenderness, no CVA tenderness. [] Extremities: No tenderness, no cyanosis, no clubbing, ROM intact, no edema. [] Neurologic: awake, and alert but confused, normal motor function, normal sensory function, no focal deficits noted. [] Psychologic: Affect normal, judgement normal, mood normal. [] Current Patient Data: Labs: Laboratory Tests Test 10/26/20 19:43 10/26/20 20:45 White Blood Count 0.3 x10^3/uL Red Blood Count 2.62 x10^6/uL Hemoglobin 7.8 g/dL Hematocrit 24.6 % Mean Corpuscular Volume 94 fL Mean Corpuscular Hemoglobin 30 pg Mean Corpuscular Hemoglobin Concent 32 g/dL Red Cell Distribution Width 18.2 % Platelet Count 28 x10^3/uL Neutrophils (%) (Auto) 1 % Lymphocytes (%) (Auto) 91 % Monocytes (%) (Auto) 8 % Eosinophils (%) (Auto) 0 % Basophils (%) (Auto) 0 % Neutrophils # (Auto) 0.0 x10^3/uL Lymphocytes # (Auto) 0.2 x10^3/uL Monocytes # (Auto) 0.0 x10^3/uL Eosinophils # (Auto) 0.0 x10^3/uL Basophils # (Auto) 0.0 x10^3/uL Segmented Neutrophils % 2 % Lymphocytes % 93 % Monocytes % 5 % Platelet Estimate Decreased Poikilocytosis Slight Anisocytosis Slight Sodium Level 147 mmol/L Potassium Level 4.2 mmol/L Chloride Level 113 mmol/L Carbon Dioxide Level 22 mmol/L Anion Gap 12 Blood Urea Nitrogen 21 mg/dL Creatinine 1.2 mg/dL Estimated GFR (Cockcroft-Gault) 51.9 BUN/Creatinine Ratio 18 Glucose Level 84 mg/dL Lactic Acid Level 0.9 mmol/L Calcium Level 7.7 mg/dL Magnesium Level 1.4 mg/dL Total Bilirubin 0.4 mg/dL Aspartate Amino Transf (AST/SGOT) 32 U/L Alanine Aminotransferase (ALT/SGPT) 31 U/L Alkaline Phosphatase 201 U/L Troponin I Quantitative 0.027 ng/mL TO-Kla-U-Type Natriuretic Peptide 552 pg/mL Total Protein 5.0 g/dL Albumin 2.1 g/dL Albumin/Globulin Ratio 0.7 Lipase 41 U/L Urine Collection Type U cath Urine Color Yellow Urine Clarity Clear Urine pH 5.0 Urine Specific [place] 1.015 Urine Protein Negative mg/dL Urine Glucose (UA) Negative mg/dL Urine Ketones (Stick) Negative mg/dL Urine Blood Negative Urine Nitrite Negative Urine Bilirubin Negative Urine Urobilinogen Dipstick 0.2 mg/dL Urine Leukocyte Esterase Negative Urine RBC 0 /HPF Urine WBC 0 /HPF Urine Squamous Epithelial Cells Few /LPF Urine Bacteria 0 /HPF Urine Mucus Slight /LPF Current Medications Medications (Trade) Dose Ordered Sig/Fortunato Route PRN Reason Start Time Stop Time Status Last Admin Dose Admin Sodium Chloride 1,000 ml @ 1,000 mls/hr 1X ONCE IV 10/26/20 19:30 10/26/20 20:29 DC 10/26/20 19:51 Ondansetron HCl (Zofran) 4 mg 1X ONCE IVP 10/26/20 19:30 10/26/20 19:31 DC 10/26/20 19:51 Magnesium Sulfate 50 ml @ 25 mls/hr 1X ONCE IV 10/26/20 20:30 10/26/20 22:29 10/26/20 21:40 Calcium Gluconate (Calcium Gluconate) 1,000 mg 1X ONCE IVP 10/26/20 20:30 10/26/20 20:33 DC 10/26/20 21:40 Cefepime HCl (Maxipime) 2 gm 1X ONCE IVP 10/26/20 21:15 10/26/20 21:16 DC 10/26/20 21:41 Ondansetron HCl (Zofran) 4 mg PRN Q8HRS PRN IV NAUSEA/VOMITING 10/26/20 21:30 10/27/20 21:29 Sodium Chloride 1,000 ml @ 75 mls/hr [id number] IV 10/26/20 21:30 10/27/20 21:29 10/26/20 21:30 Acetaminophen (Tylenol) 650 mg PRN Q4HRS PRN PO FEVER > 100.3'F 10/26/20 21:30 10/27/20 21:29 Albuterol/ Ipratropium (Duoneb) 3 ml RTQID NEB 10/27/20 08:00 10/28/20 07:59 Laboratory Tests Test 10/26/20 19:43 10/26/20 20:45 White Blood Count 0.3 x10^3/uL (4.0-11.0) *L Red Blood Count 2.62 x10^6/uL (3.50-5.40) L Hemoglobin 7.8 g/dL (12.0-15.5) L Hematocrit 24.6 % (36.0-47.0) L Mean Corpuscular Volume 94 fL (79-100) Mean Corpuscular Hemoglobin 30 pg (25-35) Mean Corpuscular Hemoglobin Concent 32 g/dL (31-37) Red Cell Distribution Width 18.2 % (11.5-14.5) H Platelet Count 28 x10^3/uL (140-400) L Neutrophils (%) (Auto) 1 % (31-73) L Lymphocytes (%) (Auto) 91 % (24-48) H Monocytes (%) (Auto) 8 % (0-9) Eosinophils (%) (Auto) 0 % (0-3) Basophils (%) (Auto) 0 % (0-3) Neutrophils # (Auto) 0.0 x10^3/uL (1.8-7.7) L Lymphocytes # (Auto) 0.2 x10^3/uL (1.0-4.8) L Monocytes # (Auto) 0.0 x10^3/uL (0.0-1.1) Eosinophils # (Auto) 0.0 x10^3/uL (0.0-0.7) Basophils # (Auto) 0.0 x10^3/uL (0.0-0.2) Segmented Neutrophils % 2 % (35-66) L Lymphocytes % 93 % (24-48) H Monocytes % 5 % (0-10) Platelet Estimate Decreased (ADEQUATE) Poikilocytosis Slight Anisocytosis Slight Sodium Level 147 mmol/L (136-145) H Potassium Level 4.2 mmol/L (3.5-5.1) Chloride Level 113 mmol/L (98-107) H Carbon Dioxide Level 22 mmol/L (21-32) Anion Gap 12 (6-14) Blood Urea Nitrogen 21 mg/dL (7-20) H Creatinine 1.2 mg/dL (0.6-1.0) H Estimated GFR (Cockcroft-Gault) 51.9 BUN/Creatinine Ratio 18 (6-20) Glucose Level 84 mg/dL (70-99) Lactic Acid Level 0.9 mmol/L (0.4-2.0) Calcium Level 7.7 mg/dL (8.5-10.1) L Magnesium Level 1.4 mg/dL (1.8-2.4) L Total Bilirubin 0.4 mg/dL (0.2-1.0) Aspartate Amino Transferase (AST) 32 U/L (15-37) Alanine Aminotransferase (ALT) 31 U/L (14-59) Alkaline Phosphatase 201 U/L (46-116) H Troponin I Quantitative 0.027 ng/mL (0.000-0.055) PQ-Rqx-P-Type Natriuretic Peptide 552 pg/mL (0-449) H Total Protein 5.0 g/dL (6.4-8.2) L Albumin 2.1 g/dL (3.4-5.0) L Albumin/Globulin Ratio 0.7 (1.0-1.7) L Lipase 41 U/L (73-393) L Urine Collection Type U cath Urine Color Yellow Urine Clarity Clear Urine pH 5.0 (<5.0-8.0) Urine Specific [place] 1.015 (1.000-1.030) Urine Protein Negative mg/dL (NEG-TRACE) Urine Glucose (UA) Negative mg/dL (NEG) Urine Ketones (Stick) Negative mg/dL (NEG) Urine Blood Negative (NEG) Urine Nitrite Negative (NEG) Urine Bilirubin Negative (NEG) Urine Urobilinogen Dipstick 0.2 mg/dL (0.2 mg/dL) Urine Leukocyte Esterase Negative (NEG) Urine RBC 0 /HPF (0-2) Urine WBC 0 /HPF (0-4) Urine Squamous Epithelial Cells Few /LPF Urine Bacteria 0 /HPF (0-FEW) Urine Mucus Slight /LPF Laboratory Tests 10/26/20 19:43 Laboratory Tests 10/26/20 19:43 EKG: EKG: [EKG was done at 2022, heart rate 104 bpm, sinus tachycardia, Radiology/Procedures: Radiology/Procedures: [facility] [address] [place] [address] IMAGING REPORT Signed PATIENT: JOSE ALFREDO BOWSER ACCOUNT: [id number] : 1935 LOCATION: ER AGE: 85 SEX: F EXAM STATUS: REG ER ORD. PHYSICIAN: GISELLE GUAJARDO DO REASON: soa PROCEDURE: PORTABLE CHEST 1V EXAM: Chest, single view. HISTORY: Shortness of air. COMPARISON: None. FINDINGS: A frontal view of the chest is obtained. There is mild lower lobe predominant increased interstitial opacity likely due to chronic interstitial change. There is suspected lingular and left. Right lower lobe pleural parenchymal scarring. The heart is normal in size. There is a port catheter with the tip in the superior cavoatrial junction. There are chronic superior lateral right rib deformities. There is degenerative change involving both shoulders. There is thoracic scoliosis. IMPRESSION: Chronic appearing interstitial changes with suspected superimposed basilar atelectasis or pleural-parenchymal scarring. No consolidated pneumonia is seen. Electronically signed by: Fide Alvarez MD (10/26/2020 7:51 PM) [id number] DICTATED and SIGNED BY: FIDE ALVAREZ MD DATE: 10/26/20 [id number] Course & Med Decision Making: Course & Med Decision Making Pertinent Labs and Imaging studies reviewed. (See chart for details) Patient is an 85-year-old female who was brought here due to diarrhea and generalized weakness. Patient was found to be neutropenic with low calcium and magnesium level. Patient was given IV fluid and calcium and IV magnesium. Patient currently has lung cancer, under chemo treatment. Will start her on broad-spectrum antibiotic due to neutropenia. Patient will be admitted to [facility] for further evaluation and treatment Dragon Disclaimer: Dragquynh Disclaimer: This electronic medical record was generated, in whole or in part, using a voice recognition dictation system. Departure Departure Impression: Primary Impression: Neutropenia Additional Impressions: Lung cancer Hypomagnesemia Diarrhea Disposition: ADMITTED INPATIENT Admitting Physician: Liang Brenner Condition: STABLE Referrals: LIANG BRENNER MD (PCP) GISELLE GUAJARDO DO Oct 26, 2020 21:16
[2020-10-26] MEDS ORDERED: ACETAMINOPHEN 325 MG TABLET. PO PRN (21:30)
[2020-10-26] MEDS: IV NORMAL SALINE 1000ML BAG 1,000 ML IV SCH (21:30)
[2020-10-26] MEDS ORDERED: ONDANSETRON PF 4 MG/2 ML VIAL. IV PRN (21:30)
[2020-10-27 02:58] VITALS: BP 102/56
--- NOTE | 2020-10-27 05:35 | EKG ---
[facility] [address] [place] [address] Test Date: 2020-10-26 Test Time: 19:30:37 Pat Name: JOSE ALFREDO BOWSER Department: Room: ED HOLD 12 Gender: F [employer]: : 1935 Requested By: GISELLE GUAJARDO Order Number: [id number] Reading MD: Ward Alfaro Measurements Intervals [place] Rate: 102 P: 60 UT: 140 QRS: -27 QRSD: 68 T: 107 QT: 324 QTc: 426 Interpretive Statements SINUS TACHYCARDIA LEFTWARD AXIS LOW VOLTAGE ABNORMAL ECG Electronically Signed On 11-03-2020 13:01:37 CDT by Ward Alfaro
[2020-10-27 07:13] VITALS: BP 98/54
[2020-10-27] MEDS ORDERED: IPRATRPIUM/ALBUTEROL 0.5/2.5MG 3 ML NEBU. NEB SCH (08:00)
[2020-10-27] MEDS ORDERED: NITROGLYCERIN SUBLINGUAL 0.4 MG BOTTLE OF 25. SL PRN (08:15)
[2020-10-27] MEDS ORDERED: ACETAMINOPHEN 325 MG TABLET. PO SCH (08:15)
--- NOTE | 2020-10-27 08:51 | HP ---
ADMIT DATE: 10/26/2020 CHIEF COMPLAINT AND HISTORY OF PRESENT ILLNESS: This 85-year-old female who is well known to follow up in the office. The patient is on ongoing chemotherapy for cancer of the lung. She developed severe diarrhea and neutropenia, was started on Levaquin for the neutropenia, which then developed diarrhea after with her becoming dehydrated, low magnesium levels and was admitted through the emergency room for hydration, broad-spectrum IV antibiotic coverage for the neutropenia. PAST MEDICAL HISTORY: Remarkable for COPD, cancer of the lung with a prior cancer of the right upper lobe removed, now left. PAST SURGICAL HISTORY: Remarkable for appendectomy, cholecystectomy, history of hip replacement, carpal tunnel. MEDICATIONS: Brought with the patient, listed on computer, have been addressed. ALLERGIES: SHE IS ALLERGIC TO STRAWBERRY AND TOMATOES. SOCIAL HISTORY: She is a former smoker, nondrinker, does not use drugs. Lives at home with her daughter. FAMILY HISTORY: Noncontributory. REVIEW OF SYSTEMS: Remarkable for just overall feeling horrible. PHYSICAL EXAMINATION: GENERAL: She is a well-developed, well-nourished white female who appears ill. She is slow to respond. VITAL SIGNS: Stable. She is afebrile. HEAD, EYES, EARS, NOSE AND THROAT: Remarkable for dryness of mucous membranes. NECK: Supple, without adenopathy or thyromegaly. CHEST: Reveals decreased breath sounds bilaterally. HEART: Sinus tachycardia, irregular without S3, S4 or murmur. ABDOMEN: Soft, nontender, with some epigastric tenderness. EXTREMITIES: Without cyanosis, clubbing, or edema. NEUROLOGIC: Nonfocal. LABORATORY DATA: White count is 300 with 1% neutrophils. Albumin is 2.1, magnesium is 1.4. Chest x-ray shows no acute changes. IMPRESSION: Cancer of the lung, undergoing chemotherapy with neutropenia, diarrhea, dehydration, hypomagnesemia. PLAN: Hydration. Will start PPI for the epigastric tenderness. Oncology has been consulted and the patient will be monitored, managed and treated appropriately. MILLER DR: Sherrie TID: [id number]
[2020-10-27 11:00] VITALS: BP 101/53
[2020-10-27] MEDS: IV NORMAL SALINE 1000ML BAG 1,000 ML IV SCH (11:13)
[2020-10-27] MEDS: SODIUM BICARBONATE 650 MG TABLET. PO SCH (13:07)
[2020-10-27] MEDS: predniSONE 10 MG TABLET PO SCH (13:07)
[2020-10-27] MEDS: PANTOPRAZOLE 40 MG TABLET.DR. PO SCH (13:07)
[2020-10-27] MEDS: HYDROcodone/APAP 5/325MG 1 TAB TABLET PO PRN ×2 (13:07→19:23)
--- NOTE | 2020-10-27 13:08 | PDOC2 ---
CONSULT Date of Consult Date of Consult DATE: 10/27/20 TIME: 12:55 Reason for Consult Reason for Consult: Extensive stage small cell lung cancer Referring Physician Referring Physician: Dr. Brenner Identification/Chief Complaint Chief Complaint Diarrhea and weakness Source Source: Caregiver, Chart review, Patient History of Present Illness Reason for Visit: Marley Moya is an 85-year-old female with recently diagnosed extensive stage small cell lung cancer who has been admitted to the hospital with diarrhea and weakness. Wilmer is known to me from her recent diagnosis of small cell lung cancer. She was started on palliative systemic therapy with carboplatin, etoposide and atezolizumab every 3 weeks on 10/19/2020. She received pegfilgrastim on 10/25/2020. She is seen in the office last week and reported a new onset cough and shortness of breath. She was prescribed Levaquin for empiric treatment for community-acquired pneumonia given anticipated neutropenia from recent chemotherapy. She reports onset of diarrhea 2 days after starting Levaquin. Reports these have been watery stools. Has occasionally noticed blood in stool. Reports loss of appetite She is also notes abdominal pain in the epigastrium with pain noted during swallowing. No hematemesis Past Medical History Cardiovascular: CAD, HTN, Other Pulmonary: COPD, Pneumonia, Other CENTRAL NERVOUS SYSTEM: Dementia GI: GERD Heme/Onc: Cancer Hepatobiliary: No pertinent hx Psych: Depression Musculoskeletal: low back pain, Osteoarthritis Rheumatologic: Gout Infectious disease: No pertinent hx Renal/: Urinary Incontinence Endocrine: No pertinent hx Past Surgical History Past Surgical History: Appendectomy, Cholecystectomy, Cataract Removal, Total hip replacement, Hysterectomy, Other Family History Family History: Coronary Artery Disease Social History ALCOHOL: none Lives: with Family Current Problem List Problem List Problems Medical Problems: (1) Diarrhea Status: Acute (2) Hypomagnesemia Status: Acute (3) Lung cancer Status: Acute (4) Neutropenia Status: Acute Current Medications Current Medications Current Medications Sodium Chloride 1,000 ml @ 1,000 mls/hr 1X ONCE IV Last administered on 10/26/20at 19:51; Start 10/26/20 at 19:30; Stop 10/26/20 at 20:29; Status DC Ondansetron HCl (Zofran) 4 mg 1X ONCE IVP Last administered on 10/26/20at 19:51; Start 10/26/20 at 19:30; Stop 10/26/20 at 19:31; Status DC Magnesium Sulfate 50 ml @ 25 mls/hr 1X ONCE IV Last administered on 10/26/20at 21:40; Start 10/26/20 at 20:30; Stop 10/26/20 at 22:29; Status DC Calcium Gluconate (Calcium Gluconate) 1,000 mg 1X ONCE IVP Last administered on 10/26/20at 21:40; Start 10/26/20 at 20:30; Stop 10/26/20 at 20:33; Status DC Cefepime HCl (Maxipime) 2 gm 1X ONCE IVP Last administered on 10/26/20at 21:41; Start 10/26/20 at 21:15; Stop 10/26/20 at 21:16; Status DC Ondansetron HCl (Zofran) 4 mg PRN Q8HRS PRN IV NAUSEA/VOMITING; Start 10/26/20 at 21:30; Stop 10/27/20 at 21:29 Sodium Chloride 1,000 ml @ 75 mls/hr [id number] IV Last administered on 10/27/20at 11:13; Start 10/26/20 at 21:30; Stop 10/27/20 at 21:29 Acetaminophen (Tylenol) 650 mg PRN Q4HRS PRN PO FEVER > 100.3'F; Start 10/26/20 at 21:30; Stop 10/27/20 at 21:29 Albuterol/ Ipratropium (Duoneb) 3 ml RTQID NEB ; Start 10/27/20 at 08:00; Stop 10/27/20 at 08:24; Status DC Acetaminophen (Tylenol) 500 mg PRN Q4HRS PO ; Start 10/27/20 at 08:15; Status Cancel Acetaminophen/ Hydrocodone Bitart (Lortab 5/325) 1 tab PRN Q6HRS PRN PO PAIN; Start 10/27/20 at 08:15 Albuterol/ Ipratropium (Duoneb) 3 ml TID NEB ; Start 10/27/20 at 09:00 Nitroglycerin (Nitrostat) 0.4 mg PRN Q5MIN PRN SL CHEST PAIN; Start 10/27/20 at 08:15 Prednisone (Prednisone) 30 mg DAILY PO ; Start 10/27/20 at 09:00 Sodium Bicarbonate (Sodium Bicarbonate) 650 mg DAILY PO ; Start 10/27/20 at 09:00 Pantoprazole Sodium (Protonix) 40 mg DAILYAC PO ; Start 10/27/20 at 09:00 Active Scripts Active Prednisone (Prednisone) 10 Mg Tablet 30 Mg PO DAILY 10 Days Amlodipine Besylate 5 Mg Tablet 5 Mg PO DAILY 30 Days [Pantoprazole] 40 MG Tablet. 40 Mg PO DAILYAC 30 Days Nitrostat (Nitroglycerin) 0.4 Mg Tab.subl 0.4 Mg SL PRN Q5MIN PRN Aspirin Ec (Aspirin) 81 Mg Tablet.dr 81 Mg PO DAILYWBKFT Reported Ibuprofen 600 Mg Tablet 600 Mg PO PRN Q6HRS PRN Namenda (Memantine Hcl) 10 Mg Tablet 10 Mg PO BID Meclizine Hcl 25 Mg Tablet 1 Tab PO BID Allopurinol 300 Mg Tablet 1 Tab PO DAILY Gabapentin 300 Mg Capsule 100 Mg PO DAILY Hydrocodone-Apap 5-325 (Hydrocodone Bit/Acetaminophen) 1 Tab Tablet 1 Tab PO PRN Q6HRS PRN Tylenol (Acetaminophen) 325 Mg Tablet 500 Mg PO PRN Sodium Bicarbonate 650 Mg Tablet 1 Tab PO DAILY Metoprolol Succinate ( Xl ) (Metoprolol Succinate) 25 Mg Tab.er.24h 1 Tab PO DAILY Mucinex (Guaifenesin) 600 Mg Tablet.er 1 Tab PO BID Daliresp (Roflumilast) 500 Mcg Tablet 500 Mcg PO DAILY Duoneb 0.5-3(2.5) Mg/3 Ml (Albuterol/Ipratropium) 3 Ml Ampul.neb 3 Ml NEB TID Allergies Allergies: Coded Allergies: tomato (Verified Allergy, Severe, 09/08/16) strawberry (Verified Allergy, Intermediate, 09/07/16) ROS Review of System Negative unless stated otherwise in HPI Physical Exam Physical Exam General: Awake, alert, appears tired, drowsy During conversation Head: Atraumatic, no conjunctival icterus, normal oral cavity mucosa Neck: Supple, no lymphadenopathy Chest: No trauma noted Cardiovascular: Regular rhythm, normal rate, no murmurs Respiratory: Bilateral air entry noted, lungs clear to auscultation bilaterally. No accessory muscle use Abdominal: Abdomen is soft. No masses palpated. Epigastric tenderness to palpation. Normal bowel sounds Musculoskeletal: No deformity noted Extremities: No edema noted Skin: No rash or lesions Neurologic: Alert and oriented x3, no grossly evident neurologic deficits noted. Full neurological exam was not performed Psychiatric: Appropriate mood and affect Vitals VITALS Vital Signs Date Time Temp Pulse Resp B/P (MAP) Pulse Ox O2 Delivery O2 Flow Rate FiO2 10/27/20 11:00 98.9 99 16 101/53 (69) 100 Nasal Cannula 3.0 98.9 Labs Labs Laboratory Tests Test 10/26/20 19:43 10/26/20 20:45 10/26/20 22:54 10/27/20 01:53 White Blood Count 0.3 x10^3/uL (4.0-11.0) Red Blood Count 2.62 x10^6/uL (3.50-5.40) Hemoglobin 7.8 g/dL (12.0-15.5) Hematocrit 24.6 % (36.0-47.0) Mean Corpuscular Volume 94 fL (79-100) Mean Corpuscular Hemoglobin 30 pg (25-35) Mean Corpuscular Hemoglobin Concent 32 g/dL (31-37) Red Cell Distribution Width 18.2 % (11.5-14.5) Platelet Count 28 x10^3/uL (140-400) Neutrophils (%) (Auto) 1 % (31-73) Lymphocytes (%) (Auto) 91 % (24-48) Monocytes (%) (Auto) 8 % (0-9) Eosinophils (%) (Auto) 0 % (0-3) Basophils (%) (Auto) 0 % (0-3) Neutrophils # (Auto) 0.0 x10^3/uL (1.8-7.7) Lymphocytes # (Auto) 0.2 x10^3/uL (1.0-4.8) Monocytes # (Auto) 0.0 x10^3/uL (0.0-1.1) Eosinophils # (Auto) 0.0 x10^3/uL (0.0-0.7) Basophils # (Auto) 0.0 x10^3/uL (0.0-0.2) Segmented Neutrophils % 2 % (35-66) Lymphocytes % 93 % (24-48) Monocytes % 5 % (0-10) Platelet Estimate Decreased (ADEQUATE) Poikilocytosis Slight Anisocytosis Slight Sodium Level 147 mmol/L (136-145) Potassium Level 4.2 mmol/L (3.5-5.1) Chloride Level 113 mmol/L (98-107) Carbon Dioxide Level 22 mmol/L (21-32) Anion Gap 12 (6-14) Blood Urea Nitrogen 21 mg/dL (7-20) Creatinine 1.2 mg/dL (0.6-1.0) Estimated GFR (Cockcroft-Gault) 51.9 BUN/Creatinine Ratio 18 (6-20) Glucose Level 84 mg/dL (70-99) Lactic Acid Level 0.9 mmol/L (0.4-2.0) Calcium Level 7.7 mg/dL (8.5-10.1) Magnesium Level 1.4 mg/dL (1.8-2.4) Total Bilirubin 0.4 mg/dL (0.2-1.0) Aspartate Amino Transf (AST/SGOT) 32 U/L (15-37) Alanine Aminotransferase (ALT/SGPT) 31 U/L (14-59) Alkaline Phosphatase 201 U/L (46-116) Troponin I Quantitative 0.027 ng/mL (0.000-0.055) 0.018 ng/mL (0.000-0.055) 0.024 ng/mL (0.000-0.055) OO-Bnk-J-Type Natriuretic Peptide 552 pg/mL (0-449) Total Protein 5.0 g/dL (6.4-8.2) Albumin 2.1 g/dL (3.4-5.0) Albumin/Globulin Ratio 0.7 (1.0-1.7) Lipase 41 U/L (73-393) Urine Collection Type U cath Urine Color Yellow Urine Clarity Clear Urine pH 5.0 (<5.0-8.0) Urine Specific Gordon 1.015 (1.000-1.030) Urine Protein Negative mg/dL (NEG-TRACE) Urine Glucose (UA) Negative mg/dL (NEG) Urine Ketones (Stick) Negative mg/dL (NEG) Urine Blood Negative (NEG) Urine Nitrite Negative (NEG) Urine Bilirubin Negative (NEG) Urine Urobilinogen Dipstick 0.2 mg/dL (0.2 mg/dL) Urine Leukocyte Esterase Negative (NEG) Urine RBC 0 /HPF (0-2) Urine WBC 0 /HPF (0-4) Urine Squamous Epithelial Cells Few /LPF Urine Bacteria 0 /HPF (0-FEW) Urine Mucus Slight /LPF Laboratory Tests Test 10/26/20 19:43 10/26/20 20:45 10/26/20 22:54 10/27/20 01:53 White Blood Count 0.3 x10^3/uL (4.0-11.0) Red Blood Count 2.62 x10^6/uL (3.50-5.40) Hemoglobin 7.8 g/dL (12.0-15.5) Hematocrit 24.6 % (36.0-47.0) Mean Corpuscular Volume 94 fL (79-100) Mean Corpuscular Hemoglobin 30 pg (25-35) Mean Corpuscular Hemoglobin Concent 32 g/dL (31-37) Red Cell Distribution Width 18.2 % (11.5-14.5) Platelet Count 28 x10^3/uL (140-400) Neutrophils (%) (Auto) 1 % (31-73) Lymphocytes (%) (Auto) 91 % (24-48) Monocytes (%) (Auto) 8 % (0-9) Eosinophils (%) (Auto) 0 % (0-3) Basophils (%) (Auto) 0 % (0-3) Neutrophils # (Auto) 0.0 x10^3/uL (1.8-7.7) Lymphocytes # (Auto) 0.2 x10^3/uL (1.0-4.8) Monocytes # (Auto) 0.0 x10^3/uL (0.0-1.1) Eosinophils # (Auto) 0.0 x10^3/uL (0.0-0.7) Basophils # (Auto) 0.0 x10^3/uL (0.0-0.2) Segmented Neutrophils % 2 % (35-66) Lymphocytes % 93 % (24-48) Monocytes % 5 % (0-10) Platelet Estimate Decreased (ADEQUATE) Poikilocytosis Slight Anisocytosis Slight Sodium Level 147 mmol/L (136-145) Potassium Level 4.2 mmol/L (3.5-5.1) Chloride Level 113 mmol/L (98-107) Carbon Dioxide Level 22 mmol/L (21-32) Anion Gap 12 (6-14) Blood Urea Nitrogen 21 mg/dL (7-20) Creatinine 1.2 mg/dL (0.6-1.0) Estimated GFR (Cockcroft-Gault) 51.9 BUN/Creatinine Ratio 18 (6-20) Glucose Level 84 mg/dL (70-99) Lactic Acid Level 0.9 mmol/L (0.4-2.0) Calcium Level 7.7 mg/dL (8.5-10.1) Magnesium Level 1.4 mg/dL (1.8-2.4) Total Bilirubin 0.4 mg/dL (0.2-1.0) Aspartate Amino Transf (AST/SGOT) 32 U/L (15-37) Alanine Aminotransferase (ALT/SGPT) 31 U/L (14-59) Alkaline Phosphatase 201 U/L (46-116) Troponin I Quantitative 0.027 ng/mL (0.000-0.055) 0.018 ng/mL (0.000-0.055) 0.024 ng/mL (0.000-0.055) AF-Ebg-G-Type Natriuretic Peptide 552 pg/mL (0-449) Total Protein 5.0 g/dL (6.4-8.2) Albumin 2.1 g/dL (3.4-5.0) Albumin/Globulin Ratio 0.7 (1.0-1.7) Lipase 41 U/L (73-393) Urine Collection Type U cath Urine Color Yellow Urine Clarity Clear Urine pH 5.0 (<5.0-8.0) Urine Specific Gordon 1.015 (1.000-1.030) Urine Protein Negative mg/dL (NEG-TRACE) Urine Glucose (UA) Negative mg/dL (NEG) Urine Ketones (Stick) Negative mg/dL (NEG) Urine Blood Negative (NEG) Urine Nitrite Negative (NEG) Urine Bilirubin Negative (NEG) Urine Urobilinogen Dipstick 0.2 mg/dL (0.2 mg/dL) Urine Leukocyte Esterase Negative (NEG) Urine RBC 0 /HPF (0-2) Urine WBC 0 /HPF (0-4) Urine Squamous Epithelial Cells Few /LPF Urine Bacteria 0 /HPF (0-FEW) Urine Mucus Slight /LPF Assessment/Plan Assessment/Plan Assessment: Extensive stage small cell lung cancer s/p cycle 1 carbo/etoposide/atezolizumab on 10/19/2020 Pancytopenia secondary to antineoplastic therapy Diarrhea Community-acquired pneumonia, improved Severe neutropenia Epigastric abdominal pain and associated dysphagia/odynophagia Mucositis, grade 3 Recommendations: -She has already received pegfilgrastim. Check CBC daily -Monitor for fever. Start antibiotic coverage for febrile neutropenia for temperature greater than 100.5 -Check C. difficile given diarrhea -Recommend nystatin swish and swallow as empiric therapy for esophageal candidiasis -Recommend CT abdomen and pelvis with contrast for evaluation of abdominal pain -Recommend Magic mouthwash as needed before meals for mucositis from chemotherapy -Consider GI consult if abdominal pain persists despite above interventions and resolution of diarrhea. Would like improved counts before scopes are considered -Rest per Dr. Brenner -Plan for outpatient follow-up with oncology immediately after hospital discharge Neri Desir MD Medical Oncology/Hematology Ph: [phone] BARTOLOME DESIR MD Oct 27, 2020 13:08
[2020-10-27] MEDS: IPRATRPIUM/ALBUTEROL 0.5/2.5MG 3 ML NEBU. NEB SCH ×3 (13:35→21:00)
[2020-10-27 15:00] VITALS: BP 106/48
--- NOTE | 2020-10-27 15:11 | NUR ---
Wound/Ostomy Care Wound Type/Assessment: Wound care consult for coccyx PU stage 2 and right ischium with DTI. Bilateral heels noted to be red but blanchable upon head to toe skin assessment. No other wounds noted. Treatment Recommendations/Plan: Cleanse all wounds with saline or wound wash and pat dry. Coccyx: apply xeroform and cover with foam, change every 3 days. Right ischium: cover with foam and change every 3 days. Education provided: pt educated on PU healing and prevention Offloading surface/device: purple wedge, heel medix boots ordered. Recommended Referrals/Tests: n/a Discharge Recommendations for dressings: same as above
--- NOTE | 2020-10-27 15:40 | NUR ---
BREATHING TX DOSE AT 1400 NON ADMINISTERED BECAUSE A PREVIOUS DOSE WAS GIVEN ONE HOUR PRIOR
[2020-10-27 19:00] VITALS: BP 124/80
[2020-10-27] MEDS: LACTOBACILLUS RHAMNOSUS GG 1 CAPSULE. PO SCH (19:23)
[2020-10-27] MEDS: NYSTATIN 100,000 UNITS/ML 5 ML ORAL.SUSP. SWSW SCH (19:23)
[2020-10-27 23:00] VITALS: BP 104/47
[2020-10-28] VITALS (12 sets, daily range): BP systolic 100–120; BP diastolic 39–60
[2020-10-28] MEDS ORDERED: CONTRAST GIVEN. MC PRN (06:45)
[2020-10-28] MEDS ORDERED: IOHEXOL 240 MG/ML 50ML VIAL. PO ONE (07:00)
[2020-10-28] MEDS ORDERED: IOHEXOL 300 MG/ML 100ML VIAL. IV ONE (07:00)
[2020-10-28] MEDS: IPRATRPIUM/ALBUTEROL 0.5/2.5MG 3 ML NEBU. NEB SCH ×4 (07:52→20:18)
[2020-10-28] MEDS: IV NORMAL SALINE 1000ML BAG 1,000 ML IV SCH (09:00)
[2020-10-28] MEDS: NYSTATIN 100,000 UNITS/ML 5 ML ORAL.SUSP. SWSW SCH ×4 (09:00→21:57)
[2020-10-28] MEDS: LACTOBACILLUS RHAMNOSUS GG 1 CAPSULE. PO SCH ×2 (09:00→21:00)
[2020-10-28] MEDS: MORPHINE SULFATE 4 MG/ML INJ. IV PRN ×2 (09:36→16:42)
--- NOTE | 2020-10-28 09:53 | RAD ---
CT of the abdomen and pelvis with contrast 10/28/2020 INDICATION: Increasing abdominal pain. COMPARISON STUDY: CT of the abdomen and pelvis October 01, 2020. CT chest September 25, 2020. TECHNIQUE: Multidetector CT imaging of the abdomen and pelvis performed following the administration of IV contrast. FINDINGS: With respect to CT from September 25, 2020 is decreased size of the left lower lobe lung mass. So me increase in associated volume loss is seen. This could represent postherpetic response. Trace pleu ral effusion noted bilaterally. The innumerable hepatic hypodense lesions seen on comparison abdominal CT. Decreased in size and are significantly less apparent on today's exam, likely also related to possible treatment response. Motion artifact somewhat limits evaluation of the solid viscera of the abdomen. There appears to be m ild periportal edema versus mild intrahepatic biliary dilatation. The gallbladder is surgically absen t. There is increased prominence of the common bile duct with respect to comparison study without def initive choledocholithiasis. Visualized hepatic veins are patent. The SMV and portal vein are patent. Splenic vein is patent. Adrenal glands are unremarkable. Spleen demonstrates prior granulomatous disease but is otherwise unr emarkable. Renal cysts again noted. The kidneys are mildly atrophic in appearance. The pancreas is at rophic in appearance is similar. There is no evidence of bowel obstruction. Evaluation of bowel loops in the pelvis limited secondary to beam hardening artifact from right hip arthroplasty. Predominantly liquid stool is seen in the col on. Finding can be associated with diarrheal states. No pneumoperitoneum is identified. No free fluid is seen in the abdomen or pelvis. The bladder is poorly evaluated. Scoliotic and significant degener ative changes of the lumbar spine are similar. IMPRESSION: 1. The previously demonstrated innumerable hepatic metastases have decreased in size and are much les s conspicuous on today's scan likely representing a positive treatment response 2. Decreasing size of left lung mass with some increase in volume loss. 3. Though evaluation is limited by motion, there is apparent interval increase in diameter of the com mon bile duct, and possible mild intrahepatic biliary dilatation versus mild periportal edema. Recomm end correlation with bilirubin levels. If concern persists, MRCP could be considered for further eval uation. 4. Liquid stool throughout the colon without obstruction as can be seen with diarrheal states 5. Trace bilateral pleural effusions CT DOSING PQRS STATEMENT: One or more of the following individualized dose reduction techniques were utilized for this examinat ion: 1. Automated exposure control 2. Adjustment of the mA and/or kV according to patient size 3. Use of iterative reconstruction technique Electronically signed by: Magen Carpio MD (10/28/2020 9:51 AM) [id number]
[2020-10-28 10:48] LABS: BASO % 0 % (0-3); EOS % 0 % (0-3); HEMATOCRIT 21.4 % (36.0-47.0); LYMPH # 0.2 x10^3/uL (1.0-4.8); MEAN CORPUSCULAR HEMOGLOBIN 30 pg (25-35); MEAN CORPUSCULAR HGB CONC 32 g/dL (31-37); MEAN CORPUSCULAR VOLUME 93 fL (79-100); MONO % 5 % (0-9); RED CELL DISTRIBUTION WIDTH 17.8 % (11.5-14.5)
[2020-10-28 10:57] LABS: LYMPH % 94 % (24-48); NEUT % 1 % (31-73)
[2020-10-28 10:58] LABS: NEUT # 0.1 x10^3/uL (1.8-7.7)
[2020-10-28 11:00] LABS: HEMOGLOBIN 6.8 g/dL (12.0-15.5); PLATELET COUNT 10 x10^3/uL (140-400); WHITE BLOOD COUNT 0.2 x10^3/uL (4.0-11.0)
--- NOTE | 2020-10-28 11:01 | NUR ---
SS following for discharge planning. SS reviewed pt chart and discussed with pt RN. Pt is from home with family and is currently requiring oxygen at two liters nasal canula. Pt has no home oxygen. Pt has lung cancer with mets to the liver. Wound care and Oncology following. SS will continue to follow for discharge planning.
[2020-10-28 11:06] LABS: ALBUMIN 1.5 g/dL (3.4-5.0); ALBUMIN/GLOBULIN RATIO 0.5 (1.0-1.7); CALCIUM 7.6 mg/dL (8.5-10.1); GFR 64.1; TOTAL BILIRUBIN 0.3 mg/dL (0.2-1.0); TOTAL PROTEIN 4.4 g/dL (6.4-8.2)
[2020-10-28] MEDS: SODIUM BICARBONATE 650 MG TABLET. PO SCH (13:06)
[2020-10-28] MEDS: predniSONE 10 MG TABLET PO SCH (13:06)
[2020-10-28] MEDS: PANTOPRAZOLE 40 MG TABLET.DR. PO SCH (13:06)
[2020-10-28] MEDS: LIDO:MAALOX:BENADRYL 1:1:1 180 ML BOTTLE. PO PRN (16:42)
--- NOTE | 2020-10-28 18:07 | NUR ---
Patient received 1 unit PRBCs with no signs or symptoms of any type of transfusion reaction. Patient tolerated transfusion well. Will continue to monitor for changes.
[2020-10-28] MEDS: MORPHINE SULFATE 2 MG/ML INJ. IV PRN (20:36)
[2020-10-28] MEDS: LEVOFLOXACIN 750 MG IV SCH (20:37)
[2020-10-28] MEDS ORDERED: ACETAMINOPHEN 650 MG SUPP.RECT. PR PRN (21:30)
[2020-10-28] MEDS: diphenhydrAMINE 50 MG/ML VIAL IVP PRN (21:38)
[2020-10-29] VITALS (9 sets, daily range): BP systolic 101–146; BP diastolic 58–114
[2020-10-29] MEDS: MORPHINE SULFATE 2 MG/ML INJ. IV PRN ×6 (00:50→20:58)
[2020-10-29] MEDS: LIDO:MAALOX:BENADRYL 1:1:1 180 ML BOTTLE. PO PRN (01:19)
--- NOTE | 2020-10-29 05:18 | PN ---
DATE: 10/28/2020 DAILY PROGRESS NOTE SUBJECTIVE: This 85-year-old female remains hospitalized with neutropenia, weakness, diarrhea. She has extremely poor intake in addition. She is awake and alert, but minimal conversation with me today. Does indicate that she feels bad. Nursing believes she is in pain with turns in bed. OBJECTIVE: VITAL SIGNS: Stable. She has had a temperature to a 100. CHEST: Clear. HEART: Rate is tachycardic at 120, regular. ABDOMEN: Ongoing mild epigastric tenderness. She remains on the Protonix. IMAGING DATA: An abdominal pelvis CT show good things cancer blair with much smaller hepatic metastases as well as left lung mass, no acute changes are seen otherwise. LABORATORY DATA: This morning's lab shows a white count of 200, platelet count 10,000, hemoglobin is down to 6.8. C. diff has come back since my initial exam and is negative, although she was started on Flagyl. I am going to ask Oncology what they would prefer as far as antibiotics with the neutropenia and the fever. IMPRESSION: 1. Metastatic small cell carcinoma of the lung. 2. Neutropenic fever. 3. Weakness. 4. Mild to moderate encephalopathic changes. PLAN: Hydration. We will start her back on Levaquin at this point for the fever given the negative C. diff. I am going to leave her on the Flagyl. We will recheck blood counts in the morning with possible transfusion if her hemoglobin drops any further and there is no evidence of any sort of bleeding. Oncology/Hematology help appreciated. JOE DR: Sherrie TID: [id number]
[2020-10-29] MEDS: IV NORMAL SALINE 1000ML BAG 1,000 ML IV SCH ×2 (05:52→16:00)
--- NOTE | 2020-10-29 06:08 | NUR ---
Patient about the same through shift, as in delay in speaking, restless, heart rate fluctuating between 119-130's, morphine 2mg ivp given 4 times this shift, magic mouthwash and nystatin solution given per swab, fever better, as per vital spread sheet, continuing to monitor ..
[2020-10-29] MEDS: PANTOPRAZOLE 40 MG TABLET.DR. PO SCH ×2 (07:30→09:07)
[2020-10-29 07:54] LABS: BASO % 0 % (0-3); EOS % 3 % (0-3); HEMATOCRIT 26.8 % (36.0-47.0); HEMOGLOBIN 8.9 g/dL (12.0-15.5); LYMPH # 0.1 x10^3/uL (1.0-4.8); LYMPH % 86 % (24-48); MEAN CORPUSCULAR HEMOGLOBIN 30 pg (25-35); MEAN CORPUSCULAR HGB CONC 33 g/dL (31-37); MEAN CORPUSCULAR VOLUME 92 fL (79-100); MONO % 10 % (0-9); NEUT % 1 % (31-73); RED BLOOD COUNT 2.93 x10^6/uL (3.50-5.40); RED CELL DISTRIBUTION WIDTH 16.6 % (11.5-14.5)
[2020-10-29] MEDS: IPRATRPIUM/ALBUTEROL 0.5/2.5MG 3 ML NEBU. NEB SCH ×2 (08:03→12:09)
[2020-10-29 08:17] LABS: WHITE BLOOD COUNT 0.1 x10^3/uL (4.0-11.0)
[2020-10-29 08:18] LABS: PLATELET COUNT 8 x10^3/uL (140-400)
[2020-10-29 08:23] LABS: CALCIUM 7.6 mg/dL (8.5-10.1); CREATININE 1.1 mg/dL (0.6-1.0); GFR 57.4; POTASSIUM 4.2 mmol/L (3.5-5.1)
--- NOTE | 2020-10-29 08:39 | PDOC ---
PROGRESS NOTES Date of Service DATE: 10/28/20 TIME: 11:34 Late entry for the above time Subjective Subjective Marley was in bed today. No additional diarrhea episodes. Son was at bedside. Reports epigastric pain is improved. Reports severe fatigue. Reports mouth sores. We discussed using salt water rinses. Objective Objective Vital Signs Date Time Temp Pulse Resp B/P (MAP) Pulse Ox O2 Delivery O2 Flow Rate FiO2 10/29/20 08:03 97 Nasal Cannula 2.0 10/29/20 07:15 97.8 129 119/58 (78) 97.8 10/29/20 06:17 20 Intake and Output 10/29/20 07:00 Intake Total 2550 ml Balance 2550 ml Intake Oral 0 ml IV Total 1800 ml Blood Product IV Normal Saline Flush 750 ml # Voids 4 Physical Exam Physical Exam General: Awake, alert, mild distress Head: Atraumatic, no conjunctival icterus, mucositis noted in oral cavity mucosa Neck: Supple, no lymphadenopathy Chest: No trauma noted Cardiovascular: Regular rhythm, normal rate, no murmurs Respiratory: Bilateral air entry noted, lungs clear to auscultation bilaterally. No accessory muscle use Abdominal: Abdomen is soft, nontender, nondistended. Bowel sounds were normal. No hepatomegaly or splenomegaly Musculoskeletal: No deformity noted Extremities: No edema noted Skin: No rash or lesions Neurologic: Alert and oriented x3, no grossly evident neurologic deficits noted. Full neurological exam was not performed Psychiatric: Appropriate mood and affect Assessment Assessment Extensive stage small cell lung cancer s/p cycle 1 carbo/etoposide/atezolizumab on 10/19/2020 Pancytopenia secondary to antineoplastic therapy Diarrhea Community-acquired pneumonia, improved Severe neutropenia Epigastric abdominal pain and associated dysphagia/odynophagia Mucositis, grade 3 Plan Plan of Care -She has already received pegfilgrastim. Check CBC daily and consider adding filgrastim if neutropenia is persistent -Monitor for fever. Start antibiotic coverage for febrile neutropenia for temperature greater than 100.5. Recommend Levaquin prophylaxis given severe neutropenia and patient's advanced age -Check C. difficile given diarrhea -Continue nystatin swish and swallow as empiric therapy for esophageal candidiasis -Reviewed CT abdomen and pelvis. Discussed findings of disease response with patient and her son. It does not explain her abdominal pain I recommended continued aggressive supportive care since I anticipate clinical improvement from resolution of chemotherapy side effects in the next 3 to 4 days -Continue Magic mouthwash as needed before meals for mucositis from chemotherapy -Recommend salt water mouth rinses for oral care -Consider GI consult if abdominal pain persists despite above interventions and resolution of diarrhea. Would like improved counts before scopes are considered -Rest per Dr. Brenner -Plan for outpatient follow-up with oncology immediately after hospital discharge Neri Desir MD Medical Oncology/Hematology Ph: [phone] Comment Review of Relevant I have reviewed the following items maria (where applicable) has been applied. Labs Laboratory Tests Test 10/28/20 05:50 10/28/20 10:40 10/29/20 07:35 Clostridium difficile Toxin (PCR) Negative (NEGATIVE) White Blood Count 0.2 x10^3/uL (4.0-11.0) 0.1 x10^3/uL (4.0-11.0) Red Blood Count 2.30 x10^6/uL (3.50-5.40) 2.93 x10^6/uL (3.50-5.40) Hemoglobin 6.8 g/dL (12.0-15.5) 8.9 g/dL (12.0-15.5) Hematocrit 21.4 % (36.0-47.0) 26.8 % (36.0-47.0) Mean Corpuscular Volume 93 fL (79-100) 92 fL (79-100) Mean Corpuscular Hemoglobin 30 pg (25-35) 30 pg (25-35) Mean Corpuscular Hemoglobin Concent 32 g/dL (31-37) 33 g/dL (31-37) Red Cell Distribution Width 17.8 % (11.5-14.5) 16.6 % (11.5-14.5) Platelet Count 10 x10^3/uL (140-400) 8 x10^3/uL (140-400) Neutrophils (%) (Auto) 1 % (31-73) 1 % (31-73) Lymphocytes (%) (Auto) 94 % (24-48) 86 % (24-48) Monocytes (%) (Auto) 5 % (0-9) 10 % (0-9) Eosinophils (%) (Auto) 0 % (0-3) 3 % (0-3) Basophils (%) (Auto) 0 % (0-3) 0 % (0-3) Neutrophils # (Auto) 0.1 x10^3/uL (1.8-7.7) 0.0 x10^3/uL (1.8-7.7) Lymphocytes # (Auto) 0.2 x10^3/uL (1.0-4.8) 0.1 x10^3/uL (1.0-4.8) Monocytes # (Auto) 0.0 x10^3/uL (0.0-1.1) 0.0 x10^3/uL (0.0-1.1) Eosinophils # (Auto) 0.0 x10^3/uL (0.0-0.7) 0.0 x10^3/uL (0.0-0.7) Basophils # (Auto) 0.0 x10^3/uL (0.0-0.2) 0.0 x10^3/uL (0.0-0.2) Sodium Level 146 mmol/L (136-145) 147 mmol/L (136-145) Potassium Level 4.0 mmol/L (3.5-5.1) 4.2 mmol/L (3.5-5.1) Chloride Level 115 mmol/L (98-107) 116 mmol/L (98-107) Carbon Dioxide Level 19 mmol/L (21-32) 20 mmol/L (21-32) Anion Gap 12 (6-14) 11 (6-14) Blood Urea Nitrogen 14 mg/dL (7-20) 22 mg/dL (7-20) Creatinine 1.0 mg/dL (0.6-1.0) 1.1 mg/dL (0.6-1.0) Estimated GFR (Cockcroft-Gault) 64.1 57.4 BUN/Creatinine Ratio 14 (6-20) Glucose Level 82 mg/dL (70-99) 130 mg/dL (70-99) Calcium Level 7.6 mg/dL (8.5-10.1) 7.6 mg/dL (8.5-10.1) Total Bilirubin 0.3 mg/dL (0.2-1.0) Aspartate Amino Transf (AST/SGOT) 18 U/L (15-37) Alanine Aminotransferase (ALT/SGPT) 23 U/L (14-59) Alkaline Phosphatase 157 U/L (46-116) Total Protein 4.4 g/dL (6.4-8.2) Albumin 1.5 g/dL (3.4-5.0) Albumin/Globulin Ratio 0.5 (1.0-1.7) Laboratory Tests Test 10/28/20 10:40 10/29/20 07:35 White Blood Count 0.2 x10^3/uL (4.0-11.0) 0.1 x10^3/uL (4.0-11.0) Red Blood Count 2.30 x10^6/uL (3.50-5.40) 2.93 x10^6/uL (3.50-5.40) Hemoglobin 6.8 g/dL (12.0-15.5) 8.9 g/dL (12.0-15.5) Hematocrit 21.4 % (36.0-47.0) 26.8 % (36.0-47.0) Mean Corpuscular Volume 93 fL (79-100) 92 fL (79-100) Mean Corpuscular Hemoglobin 30 pg (25-35) 30 pg (25-35) Mean Corpuscular Hemoglobin Concent 32 g/dL (31-37) 33 g/dL (31-37) Red Cell Distribution Width 17.8 % (11.5-14.5) 16.6 % (11.5-14.5) Platelet Count 10 x10^3/uL (140-400) 8 x10^3/uL (140-400) Neutrophils (%) (Auto) 1 % (31-73) 1 % (31-73) Lymphocytes (%) (Auto) 94 % (24-48) 86 % (24-48) Monocytes (%) (Auto) 5 % (0-9) 10 % (0-9) Eosinophils (%) (Auto) 0 % (0-3) 3 % (0-3) Basophils (%) (Auto) 0 % (0-3) 0 % (0-3) Neutrophils # (Auto) 0.1 x10^3/uL (1.8-7.7) 0.0 x10^3/uL (1.8-7.7) Lymphocytes # (Auto) 0.2 x10^3/uL (1.0-4.8) 0.1 x10^3/uL (1.0-4.8) Monocytes # (Auto) 0.0 x10^3/uL (0.0-1.1) 0.0 x10^3/uL (0.0-1.1) Eosinophils # (Auto) 0.0 x10^3/uL (0.0-0.7) 0.0 x10^3/uL (0.0-0.7) Basophils # (Auto) 0.0 x10^3/uL (0.0-0.2) 0.0 x10^3/uL (0.0-0.2) Sodium Level 146 mmol/L (136-145) 147 mmol/L (136-145) Potassium Level 4.0 mmol/L (3.5-5.1) 4.2 mmol/L (3.5-5.1) Chloride Level 115 mmol/L (98-107) 116 mmol/L (98-107) Carbon Dioxide Level 19 mmol/L (21-32) 20 mmol/L (21-32) Anion Gap 12 (6-14) 11 (6-14) Blood Urea Nitrogen 14 mg/dL (7-20) 22 mg/dL (7-20) Creatinine 1.0 mg/dL (0.6-1.0) 1.1 mg/dL (0.6-1.0) Estimated GFR (Cockcroft-Gault) 64.1 57.4 BUN/Creatinine Ratio 14 (6-20) Glucose Level 82 mg/dL (70-99) 130 mg/dL (70-99) Calcium Level 7.6 mg/dL (8.5-10.1) 7.6 mg/dL (8.5-10.1) Total Bilirubin 0.3 mg/dL (0.2-1.0) Aspartate Amino Transf (AST/SGOT) 18 U/L (15-37) Alanine Aminotransferase (ALT/SGPT) 23 U/L (14-59) Alkaline Phosphatase 157 U/L (46-116) Total Protein 4.4 g/dL (6.4-8.2) Albumin 1.5 g/dL (3.4-5.0) Albumin/Globulin Ratio 0.5 (1.0-1.7) Microbiology 10/27/20 Blood Culture - Preliminary, Resulted NO GROWTH AFTER 2 DAYS Medications Current Medications Sodium Chloride 1,000 ml @ 1,000 mls/hr 1X ONCE IV Last administered on 10/26/20at 19:51; Start 10/26/20 at 19:30; Stop 10/26/20 at 20:29; Status DC Ondansetron HCl (Zofran) 4 mg 1X ONCE IVP Last administered on 10/26/20at 19:51; Start 10/26/20 at 19:30; Stop 10/26/20 at 19:31; Status DC Magnesium Sulfate 50 ml @ 25 mls/hr 1X ONCE IV Last administered on 10/26/20at 21:40; Start 10/26/20 at 20:30; Stop 10/26/20 at 22:29; Status DC Calcium Gluconate (Calcium Gluconate) 1,000 mg 1X ONCE IVP Last administered on 10/26/20at 21:40; Start 10/26/20 at 20:30; Stop 10/26/20 at 20:33; Status DC Cefepime HCl (Maxipime) 2 gm 1X ONCE IVP Last administered on 10/26/20at 21:41; Start 10/26/20 at 21:15; Stop 10/26/20 at 21:16; Status DC Ondansetron HCl (Zofran) 4 mg PRN Q8HRS PRN IV NAUSEA/VOMITING Last administered on 10/27/20at 13:07; Start 10/26/20 at 21:30; Stop 10/27/20 at 21:29; Status DC Sodium Chloride 1,000 ml @ 75 mls/hr [id number] IV Last administered on 10/27/20at 11:13; Start 10/26/20 at 21:30; Stop 10/27/20 at 21:29; Status DC Acetaminophen (Tylenol) 650 mg PRN Q4HRS PRN PO FEVER > 100.3'F; Start 10/26/20 at 21:30; Stop 10/27/20 at 21:29; Status DC Albuterol/ Ipratropium (Duoneb) 3 ml RTQID NEB ; Start 10/27/20 at 08:00; Stop 10/27/20 at 08:24; Status DC Acetaminophen (Tylenol) 500 mg PRN Q4HRS PO ; Start 10/27/20 at 08:15; Status Cancel Acetaminophen/ Hydrocodone Bitart (Lortab 5/325) 1 tab PRN Q6HRS PRN PO PAIN Last administered on 10/27/20at 19:23; Start 10/27/20 at 08:15 Albuterol/ Ipratropium (Duoneb) 3 ml TID NEB Last administered on 10/29/20at 08:03; Start 10/27/20 at 09:00 Nitroglycerin (Nitrostat) 0.4 mg PRN Q5MIN PRN SL CHEST PAIN; Start 10/27/20 at 08:15 Prednisone (Prednisone) 30 mg DAILY PO Last administered on 10/28/20at 13:06; Start 10/27/20 at 09:00 Sodium Bicarbonate (Sodium Bicarbonate) 650 mg DAILY PO Last administered on 10/28/20at 13:06; Start 10/27/20 at 09:00 Pantoprazole Sodium (Protonix) 40 mg DAILYAC PO Last administered on 10/28/20at 13:06; Start 10/27/20 at 09:00 Lactobacillus Rhamnosus (Culturelle) 1 cap BID PO Last administered on 10/27/20 at 19:23; Start 10/27/20 at 21:00 Nystatin (Nystatin Oral Susp) 5 ml [id number] Last administered on 10/28/20at 21:57; Start 10/27/20 at 21:00 Multi-Ingredient Mouthwash/Gargle (Magic Mouthwash) 10 ml PRN QID PRN PO MOUTH PAIN Last administered on 10/29/20at 01:19; Start 10/27/20 at 18:45 Iohexol (Omnipaque 240 Mg/ml) 50 ml 1X ONCE PO Last administered on 10/28/20at 07:00; Start 10/28/20 at 07:00; Stop 10/28/20 at 07:01; Status DC Iohexol (Omnipaque 300 Mg/ml) 60 ml 1X ONCE IV Last administered on 10/28/20at 09:10; Start 10/28/20 at 07:00; Stop 10/28/20 at 07:01; Status DC Info (CONTRAST GIVEN -- Rx MONITORING) 1 each PRN DAILY PRN MC SEE COMMENTS; Start 10/28/20 at 06:45; Stop 10/30/20 at 06:44 Sodium Chloride 1,000 ml @ 75 mls/hr [id number] IV Last administered on 10/29/20at 05:52; Start 10/28/20 at 09:00 Morphine Sulfate (Morphine Sulfate) 2 mg PRN Q2HR PRN IV MODERATE PAIN Last administered on 10/29/20at 05:47; Start 10/28/20 at 09:15 Morphine Sulfate (Morphine Sulfate) 4 mg PRN Q2HR PRN IV SEVERE PAIN Last admin istered on 10/28/20at 16:42; Start 10/28/20 at 09:15 Metronidazole 100 ml @ 100 mls/hr Q8HRS IV Last administered on 10/29/20at 05: 47; Start 10/28/20 at 10:00 Levofloxacin/ Dextrose 750 ml @ 500 mls/hr Q48H IV Last administered on 10/28/20at 20:37; Start 10/28/20 at 17:00 Acetaminophen (Tylenol Supp) 650 mg PRN Q6HRS PRN WA MILD PAIN / TEMP > 100.3'F Last administered on 10/28/20at 21:37; Start 10/28/20 at 21:30 Diphenhydramine HCl (Benadryl) 25 mg PRN QHS PRN IVP SLEEP Last administered on 10/28/20at 21:38; Start 10/28/20 at 21:30 Active Scripts Active Prednisone (Prednisone) 10 Mg Tablet 30 Mg PO DAILY 10 Days Amlodipine Besylate 5 Mg Tablet 5 Mg PO DAILY 30 Days [Pantoprazole] 40 MG Tablet.dr 40 Mg PO DAILYAC 30 Days Nitrostat (Nitroglycerin) 0.4 Mg Tab.subl 0.4 Mg SL PRN Q5MIN PRN Aspirin Ec (Aspirin) 81 Mg Tablet. 81 Mg PO [id number] Reported Ibuprofen 600 Mg Tablet 600 Mg PO PRN Q6HRS PRN Namenda (Memantine Hcl) 10 Mg Tablet 10 Mg PO BID Meclizine Hcl 25 Mg Tablet 1 Tab PO BID Allopurinol 300 Mg Tablet 1 Tab PO DAILY Gabapentin 300 Mg Capsule 100 Mg PO DAILY Hydrocodone-Apap 5-325 (Hydrocodone Bit/Acetaminophen) 1 Tab Tablet 1 Tab PO PRN Q6HRS PRN Tylenol (Acetaminophen) 325 Mg Tablet 500 Mg PO PRN Sodium Bicarbonate 650 Mg Tablet 1 Tab PO DAILY Metoprolol Succinate ( Xl ) (Metoprolol Succinate) 25 Mg Tab.er.24h 1 Tab PO JIM LY Mucinex (Guaifenesin) 600 Mg Tablet.er 1 Tab PO BID Daliresp (Roflumilast) 500 Mcg Tablet 500 Mcg PO DAILY Duoneb 0.5-3(2.5) Mg/3 Ml (Albuterol/Ipratropium) 3 Ml Ampul.neb 3 Ml NEB TID Vitals/I & O Vital Sign - Last 24 Hours 10/28/20 10/28/20 10/28/20 10/28/20 09:36 10:15 11:00 11:42 Temp 99.0 99.0 Pulse 119 Resp 16 B/P (MAP) 115/59 (77) Pulse Ox 98 O2 Delivery Nasal Cannula Nasal Cannula Nasal Cannula Nasal Cannula O2 Flow Rate 2.0 2.0 2.0 2.0 10/28/20 10/28/20 10/28/20 10/28/20 14:40 14:57 15:00 15:46 Temp 98.4 98.5 98.5 98.4 98.5 98.5 Pulse 120 119 119 Resp 20 20 20 B/P (MAP) 106/52 102/51 102/51 (68) Pulse Ox 96 96 O2 Delivery Nasal Cannula Nasal Cannula O2 Flow Rate 2.0 2.0 10/28/20 10/28/20 10/28/20 10/28/20 16:00 16:42 17:14 17:26 Temp 98.3 98.5 98.3 98.5 Pulse 123 128 Resp 20 20 B/P (MAP) 113/60 106/49 Pulse Ox 96 O2 Delivery Nasal Cannula Nasal Cannula O2 Flow Rate 2.0 2.0 10/28/20 10/28/20 10/28/20 10/28/20 18:05 19:30 20:00 20:20 Temp 98.8 99.7 98.8 99.7 Pulse 125 132 Resp 20 22 B/P (MAP) 109/50 120/49 (72) Pulse Ox 93 93 O2 Delivery Nasal Cannula Nasal Cannula Nasal Cannula O2 Flow Rate 2.0 2.0 2.0 10/28/20 10/28/20 10/28/201/21 20:36 21:06 21:08 23:00 Temp 99.5 99.5 Pulse 130 129 Resp B/P (MAP) 110/48 (68) 110/58 (75) Pulse Ox 93 97 O2 Delivery Nasal Cannula Nasal Cannula Nasal Cannula Nasal Cannula O2 Flow Rate 2.0 2.0 10/29/20 10/29/20 10/29/20 10/29/20 00:50 01:20 03:00 03:43 Temp 98.3 98.3 Pulse 122 Resp B/P (MAP) 101/59 (73) Pulse Ox 97 98 99 O2 Delivery Nasal Cannula Nasal Cannula Nasal Cannula Nasal Cannula O2 Flow Rate 2.0 2.0 2.0 10/29/20 10/29/20 10/29/20 10/29/20 04:13 05:47 06:17 07:15 Temp 97.8 97.8 Pulse 129 Resp B/P (MAP) 119/58 (78) Pulse Ox 95 2 O2 Delivery Nasal Cannula Nasal Cannula Nasal Cannula Nasal Cannula O2 Flow Rate 2.0 98.0 10/29/20 10/29/20 08:00 08:03 Pulse Ox 97 O2 Delivery Nasal Cannula Nasal Cannula O2 Flow Rate 2.0 2.0 Intake and Output 10/28/20 10/28/20 10/29/20 15:00 23:00 07:00 Intake Total 475 ml 975 ml 1100 ml Balance 475 ml 975 ml 1100 ml Justifications for Admission Other Justification Nutrition Consultation Dietary Evaluation: Recommendations by RD: Dietary education by RD, Increase Calorie Intake, Protein supplementation Comments: cardiac, neutropenic diet sending ensure bid, honor food preferences and offer snacks/ supplements from unit prn REC mvi and vit c per wound protocal Expected Outcomes/Goals: to meet > 75% est nutr needs Malnutrition Findings: Food and Nutrition Intake (Sev: <50% est energy req 5days Weight Status: Overweight BARTOLOME DESIR MD Oct 29, 2020 08:39
--- NOTE | 2020-10-29 08:53 | PDOC ---
PROGRESS NOTES Date of Service DATE: 10/29/20 TIME: 08:48 Subjective Subjective Platelets low today. Platelet transfusion is planned. Received 1 unit PRBC yesterday with improvement in hemoglobin subsequently. No fever in the interval. Objective Objective Vital Signs Date Time Temp Pulse Resp B/P (MAP) Pulse Ox O2 Delivery O2 Flow Rate FiO2 10/29/20 08:03 97 Nasal Cannula 2.0 10/29/20 07:15 97.8 129 119/58 (78) 97.8 10/29/20 06:17 20 Intake and Output 10/29/20 07:00 Intake Total 2550 ml Balance 2550 ml Intake Oral 0 ml IV Total 1800 ml Blood Product IV Normal Saline Flush 750 ml # Voids 4 Physical Exam Physical Exam General: sleepy, mild distress Head: Atraumatic, no conjunctival icterus, oral mucositis Neck: Supple, no lymphadenopathy Chest: No trauma noted Cardiovascular: Regular rhythm, no murmurs. Tachycardic Respiratory: Bilateral air entry noted, lungs clear to auscultation bilaterally. No accessory muscle use Abdominal: Abdomen is soft, nontender, nondistended. Bowel sounds were normal. No hepatomegaly or splenomegaly Musculoskeletal: No deformity noted Extremities: No edema noted Skin: No rash or lesions Neurologic: Alert and oriented x3, no grossly evident neurologic deficits noted. Full neurological exam was not performed Psychiatric: Appropriate mood and affect Assessment Assessment Extensive stage small cell lung cancer s/p cycle 1 carbo/etoposide/atezolizumab on 10/19/2020 Pancytopenia secondary to antineoplastic therapy Diarrhea Community-acquired pneumonia, improved Severe neutropenia Epigastric abdominal pain and associated dysphagia/odynophagia Mucositis, grade 3 Plan Plan of Care -Check CBC daily. We will add filgrastim 480 mcg today -Transfuse as needed to keep hemoglobin above seven and platelets above 10. Received RBC transfusion on 11/01/2020. Platelet transfusion planned for 10/29/2020. -Monitor for fever. Start antibiotic coverage for febrile neutropenia for temperature greater than 100.5. Continue Levaquin prophylaxis given severe ne utropenia and patient's advanced age -Continue nystatin swish and swallow as empiric therapy for esophageal candidiasis -Reviewed CT abdomen and pelvis. It does not explain her abdominal pain. Recommended continued aggressive supportive care since I anticipate clinical improvement from resolution of chemotherapy side effects in the next 3 to 4 days -Continue Magic mouthwash as needed before meals for mucositis from chemotherapy -Recommend salt water mouth rinses for oral care -Consider GI consult if abdominal pain persists despite above interventions and resolution of diarrhea. Would like improved counts before scopes are considered -Rest per Dr. Brenner -Plan for outpatient follow-up with oncology immediately after hospital discharge Comment Review of Relevant I have reviewed the following items maria (where applicable) has been applied. Labs Laboratory Tests Test 10/28/20 05:50 10/28/20 10:40 10/29/20 07:35 Clostridium difficile Toxin (PCR) Negative (NEGATIVE) White Blood Count 0.2 x10^3/uL (4.0-11.0) 0.1 x10^3/uL (4.0-11.0) Red Blood Count 2.30 x10^6/uL (3.50-5.40) 2.93 x10^6/uL (3.50-5.40) Hemoglobin 6.8 g/dL (12.0-15.5) 8.9 g/dL (12.0-15.5) Hematocrit 21.4 % (36.0-47.0) 26.8 % (36.0-47.0) Mean Corpuscular Volume 93 fL (79-100) 92 fL (79-100) Mean Corpuscular Hemoglobin 30 pg (25-35) 30 pg (25-35) Mean Corpuscular Hemoglobin Concent 32 g/dL (31-37) 33 g/dL (31-37) Red Cell Distribution Width 17.8 % (11.5-14.5) 16.6 % (11.5-14.5) Platelet Count 10 x10^3/uL (140-400) 8 x10^3/uL (140-400) Neutrophils (%) (Auto) 1 % (31-73) 1 % (31-73) Lymphocytes (%) (Auto) 94 % (24-48) 86 % (24-48) Monocytes (%) (Auto) 5 % (0-9) 10 % (0-9) Eosinophils (%) (Auto) 0 % (0-3) 3 % (0-3) Basophils (%) (Auto) 0 % (0-3) 0 % (0-3) Neutrophils # (Auto) 0.1 x10^3/uL (1.8-7.7) 0.0 x10^3/uL (1.8-7.7) Lymphocytes # (Auto) 0.2 x10^3/uL (1.0-4.8) 0.1 x10^3/uL (1.0-4.8) Monocytes # (Auto) 0.0 x10^3/uL (0.0-1.1) 0.0 x10^3/uL (0.0-1.1) Eosinophils # (Auto) 0.0 x10^3/uL (0.0-0.7) 0.0 x10^3/uL (0.0-0.7) Basophils # (Auto) 0.0 x10^3/uL (0.0-0.2) 0.0 x10^3/uL (0.0-0.2) Sodium Level 146 mmol/L (136-145) 147 mmol/L (136-145) Potassium Level 4.0 mmol/L (3.5-5.1) 4.2 mmol/L (3.5-5.1) Chloride Level 115 mmol/L (98-107) 116 mmol/L (98-107) Carbon Dioxide Level 19 mmol/L (21-32) 20 mmol/L (21-32) Anion Gap 12 (6-14) 11 (6-14) Blood Urea Nitrogen 14 mg/dL (7-20) 22 mg/dL (7-20) Creatinine 1.0 mg/dL (0.6-1.0) 1.1 mg/dL (0.6-1.0) Estimated GFR (Cockcroft-Gault) 64.1 57.4 BUN/Creatinine Ratio 14 (6-20) Glucose Level 82 mg/dL (70-99) 130 mg/dL (70-99) Calcium Level 7.6 mg/dL (8.5-10.1) 7.6 mg/dL (8.5-10.1) Total Bilirubin 0.3 mg/dL (0.2-1.0) Aspartate Amino Transf (AST/SGOT) 18 U/L (15-37) Alanine Aminotransferase (ALT/SGPT) 23 U/L (14-59) Alkaline Phosphatase 157 U/L (46-116) Total Protein 4.4 g/dL (6.4-8.2) Albumin 1.5 g/dL (3.4-5.0) Albumin/Globulin Ratio 0.5 (1.0-1.7) Laboratory Tests Test 10/28/20 10:40 10/29/20 07:35 White Blood Count 0.2 x10^3/uL (4.0-11.0) 0.1 x10^3/uL (4.0-11.0) Red Blood Count 2.30 x10^6/uL (3.50-5.40) 2.93 x10^6/uL (3.50-5.40) Hemoglobin 6.8 g/dL (12.0-15.5) 8.9 g/dL (12.0-15.5) Hematocrit 21.4 % (36.0-47.0) 26.8 % (36.0-47.0) Mean Corpuscular Volume 93 fL (79-100) 92 fL (79-100) Mean Corpuscular Hemoglobin 30 pg (25-35) 30 pg (25-35) Mean Corpuscular Hemoglobin Concent 32 g/dL (31-37) 33 g/dL (31-37) Red Cell Distribution Width 17.8 % (11.5-14.5) 16.6 % (11.5-14.5) Platelet Count 10 x10^3/uL (140-400) 8 x10^3/uL (140-400) Neutrophils (%) (Auto) 1 % (31-73) 1 % (31-73) Lymphocytes (%) (Auto) 94 % (24-48) 86 % (24-48) Monocytes (%) (Auto) 5 % (0-9) 10 % (0-9) Eosinophils (%) (Auto) 0 % (0-3) 3 % (0-3) Basophils (%) (Auto) 0 % (0-3) 0 % (0-3) Neutrophils # (Auto) 0.1 x10^3/uL (1.8-7.7) 0.0 x10^3/uL (1.8-7.7) Lymphocytes # (Auto) 0.2 x10^3/uL (1.0-4.8) 0.1 x10^3/uL (1.0-4.8) Monocytes # (Auto) 0.0 x10^3/uL (0.0-1.1) 0.0 x10^3/uL (0.0-1.1) Eosinophils # (Auto) 0.0 x10^3/uL (0.0-0.7) 0.0 x10^3/uL (0.0-0.7) Basophils # (Auto) 0.0 x10^3/uL (0.0-0.2) 0.0 x10^3/uL (0.0-0.2) Sodium Level 146 mmol/L (136-145) 147 mmol/L (136-145) Potassium Level 4.0 mmol/L (3.5-5.1) 4.2 mmol/L (3.5-5.1) Chloride Level 115 mmol/L (98-107) 116 mmol/L (98-107) Carbon Dioxide Level 19 mmol/L (21-32) 20 mmol/L (21-32) Anion Gap 12 (6-14) 11 (6-14) Blood Urea Nitrogen 14 mg/dL (7-20) 22 mg/dL (7-20) Creatinine 1.0 mg/dL (0.6-1.0) 1.1 mg/dL (0.6-1.0) Estimated GFR (Cockcroft-Gault) 64.1 57.4 BUN/Creatinine Ratio 14 (6-20) Glucose Level 82 mg/dL (70-99) 130 mg/dL (70-99) Calcium Level 7.6 mg/dL (8.5-10.1) 7.6 mg/dL (8.5-10.1) Total Bilirubin 0.3 mg/dL (0.2-1.0) Aspartate Amino Transf (AST/SGOT) 18 U/L (15-37) Alanine Aminotransferase (ALT/SGPT) 23 U/L (14-59) Alkaline Phosphatase 157 U/L (46-116) Total Protein 4.4 g/dL (6.4-8.2) Albumin 1.5 g/dL (3.4-5.0) Albumin/Globulin Ratio 0.5 (1.0-1.7) Microbiology 10/27/20 Blood Culture - Preliminary, Resulted NO GROWTH AFTER 2 DAYS Medications Current Medications Sodium Chloride 1,000 ml @ 1,000 mls/hr 1X ONCE IV Last administered on 10/26/20at 19:51; Start 10/26/20 at 19:30; Stop 10/26/20 at 20:29; Status DC Ondansetron HCl (Zofran) 4 mg 1X ONCE IVP Last administered on 10/26/20at 19:51; Start 10/26/20 at 19:30; Stop 10/26/20 at 19:31; Status DC Magnesium Sulfate 50 ml @ 25 mls/hr 1X ONCE IV Last administered on 10/26/20at 21:40; Start 10/26/20 at 20:30; Stop 10/26/20 at 22:29; Status DC Calcium Gluconate (Calcium Gluconate) 1,000 mg 1X ONCE IVP Last administered on 10/26/20at 21:40; Start 10/26/20 at 20:30; Stop 10/26/20 at 20:33; Status DC Cefepime HCl (Maxipime) 2 gm 1X ONCE IVP Last administered on 10/26/20at 21:41; Start 10/26/20 at 21:15; Stop 10/26/20 at 21:16; Status DC Ondansetron HCl (Zofran) 4 mg PRN Q8HRS PRN IV NAUSEA/VOMITING Last administered on 10/27/20at 13:07; Start 10/26/20 at 21:30; Stop 10/27/20 at 21:29; Status DC Sodium Chloride 1,000 ml @ 75 mls/hr [id number] IV Last administered on 10/27/20at 11:13; Start 10/26/20 at 21:30; Stop 10/27/20 at 21:29; Status DC Acetaminophen (Tylenol) 650 mg PRN Q4HRS PRN PO FEVER > 100.3'F; Start 10/26/20 at 21:30; Stop 10/27/20 at 21:29; Status DC Albuterol/ Ipratropium (Duoneb) 3 ml RTQID NEB ; Start 10/27/20 at 08:00; Stop 10/27/20 at 08:24; Status DC Acetaminophen (Tylenol) 500 mg PRN Q4HRS PO ; Start 10/27/20 at 08:15; Status Cancel Acetaminophen/ Hydrocodone Bitart (Lortab 5/325) 1 tab PRN Q6HRS PRN PO PAIN Last administered on 10/27/20at 19:23; Start 10/27/20 at 08:15 Albuterol/ Ipratropium (Duoneb) 3 ml TID NEB Last administered on 10/29/20at 08:03; Start 10/27/20 at 09:00 Nitroglycerin (Nitrostat) 0.4 mg PRN Q5MIN PRN SL CHEST PAIN; Start 10/27/20 at 08:15 Prednisone (Prednisone) 30 mg DAILY PO Last administered on 10/28/20at 13:06; Start 10/27/20 at 09:00 Sodium Bicarbonate (Sodium Bicarbonate) 650 mg DAILY PO Last administered on 10/28/20at 13:06; Start 10/27/20 at 09:00 Pantoprazole Sodium (Protonix) 40 mg DAILYAC PO Last administered on 10/28/20at 13:06; Start 10/27/20 at 09:00 Lactobacillus Rhamnosus (Culturelle) 1 cap BID PO Last administered on 10/27/20at 19:23; Start 10/27/20 at 21:00 Nystatin (Nystatin Oral Susp) 5 ml [id number] Last administered on 10/28/20at 21:57; Start 10/27/20 at 21:00 Multi-Ingredient Mouthwash/Gargle (Magic Mouthwash) 10 ml PRN QID PRN PO MOUTH PAIN Last administered on 10/29/20at 01:19; Start 10/27/20 at 18:45 Iohexol (Omnipaque 240 Mg/ml) 50 ml 1X ONCE PO Last administered on 10/28/20at 07:00; Start 10/28/20 at 07:00; Stop 10/28/20 at 07:01; Status DC Iohexol (Omnipaque 300 Mg/ml) 60 ml 1X ONCE IV Last administered on 10/28/20at 09:10; Start 10/28/20 at 07:00; Stop 10/28/20 at 07:01; Status DC Info (CONTRAST GIVEN -- Rx MONITORING) 1 each PRN DAILY PRN MC SEE COMMENTS; Start 10/28/20 at 06:45; Stop 10/30/20 at 06:44 Sodium Chloride 1,000 ml @ 75 mls/hr [id number] IV Last administered on 10/29/20at 05:52; Start 10/28/20 at 09:00 Morphine Sulfate (Morphine Sulfate) 2 mg PRN Q2HR PRN IV MODERATE PAIN Last administered on 10/29/20at 05:47; Start 10/28/20 at 09:15 Morphine Sulfate (Morphine Sulfate) 4 mg PRN Q2HR PRN IV SEVERE PAIN Last administered on 10/28/20at 16:42; Start 10/28/20 at 09:15 Metronidazole 100 ml @ 100 mls/hr Q8HRS IV Last administered on 10/29/20at 05:47; Start 10/28/20 at 10:00 Levofloxacin/ Dextrose 750 ml @ 500 mls/hr Q48H IV Last administered on 10/28/20at 20:37; Start 10/28/20 at 17:00 Acetaminophen (Tylenol Supp) 650 mg PRN Q6HRS PRN [place] MILD PAIN / TEMP > 100.3'F Last administered on 10/28/20at 21:37; Start 10/28/20 at 21:30 Diphenhydramine HCl (Benadryl) 25 mg PRN QHS PRN IVP SLEEP Last administered on 10/28/20at 21:38; Start 10/28/20 at 21:30 Tbo-Filgrastim (Granix) 480 mcg QHS SQ ; Start 10/30/20 at 21:00 Tbo-Filgrastim (Granix) 480 mcg 1X ONCE SQ ; Start 10/29/20 at 09:00; Stop 10/29/20 at 09:01 Active Scripts Active Prednisone (Prednisone) 10 Mg Tablet 30 Mg PO DAILY 10 Days Amlodipine Besylate 5 Mg Tablet 5 Mg PO DAILY 30 Days [Pantoprazole] 40 MG Tablet. 40 Mg PO DAILYAC 30 Days Nitrostat (Nitroglycerin) 0.4 Mg Tab.subl 0.4 Mg SL PRN Q5MIN PRN Aspirin Ec (Aspirin) 81 Mg Tablet. 81 Mg PO [id number] Reported Ibuprofen 600 Mg Tablet 600 Mg PO PRN Q6HRS PRN Namenda (Memantine Hcl) 10 Mg Tablet 10 Mg PO BID Meclizine Hcl 25 Mg Tablet 1 Tab PO BID Allopurinol 300 Mg Tablet 1 Tab PO DAILY Gabapentin 300 Mg Capsule 100 Mg PO DAILY Hydrocodone-Apap 5-325 (Hydrocodone Bit/Acetaminophen) 1 Tab Tablet 1 Tab PO PRN Q6HRS PRN Tylenol (Acetaminophen) 325 Mg Tablet 500 Mg PO PRN Sodium Bicarbonate 650 Mg Tablet 1 Tab PO DAILY Metoprolol Succinate ( Xl ) (Metoprolol Succinate) 25 Mg Tab.er.24h 1 Tab PO DAILY Mucinex (Guaifenesin) 600 Mg Tablet.er 1 Tab PO BID Daliresp (Roflumilast) 500 Mcg Tablet 500 Mcg PO DAILY Duoneb 0.5-3(2.5) Mg/3 Ml (Albuterol/Ipratropium) 3 Ml Ampul.neb 3 Ml NEB TID Vitals/I & O Vital Sign - Last 24 Hours 10/28/20 10/28/20 10/28/20 10/28/20 09:36 10:15 11:00 11:42 Temp 99.0 99.0 Pulse 119 Resp 16 B/P (MAP) 115/59 (77) Pulse Ox 98 O2 Delivery Nasal Cannula Nasal Cannula Nasal Cannula Nasal Cannula O2 Flow Rate 2.0 2.0 2.0 2.0 10/28/20 10/28/20 10/28/20 10/28/20 14:40 14:57 15:00 15:46 Temp 98.4 98.5 98.5 98.4 98.5 98.5 Pulse 120 119 119 Resp 20 20 20 B/P (MAP) 106/52 102/51 102/51 (68) Pulse Ox 96 96 O2 Delivery Nasal Cannula Nasal Cannula O2 Flow Rate 2.0 2.0 10/28/20 10/28/20 10/28/20 10/28/20 16:00 16:42 17:14 17:26 Temp 98.3 98.5 98.3 98.5 Pulse 123 128 Resp 20 20 B/P (MAP) 113/60 106/49 Pulse Ox 96 O2 Delivery Nasal Cannula Nasal Cannula O2 Flow Rate 2.0 2.0 10/28/20 10/28/20 10/28/20 10/28/20 18:05 19:30 20:00 20:20 Temp 98.8 99.7 98.8 99.7 Pulse 125 132 Resp 20 22 B/P (MAP) 109/50 120/49 (72) Pulse Ox 93 93 O2 Delivery Nasal Cannula Nasal Cannula Nasal Cannula O2 Flow Rate 2.0 2.0 2.0 10/28/20 10/28/20 10/28/20 10/28/20 20:36 21:06 21:08 23:00 Temp 99.5 99.5 Pulse 130 129 Resp B/P (MAP) 110/48 (68) 110/58 (75) Pulse Ox 93 97 O2 Delivery Nasal Cannula Nasal Cannula Nasal Cannula Nasal Cannula O2 Flow Rate 2.0 2.0 10/29/20 10/29/20 10/29/20 10/29/20 00:50 01:20 03:00 03:43 Temp 98.3 98.3 Pulse 122 Resp B/P (MAP) 101/59 (73) Pulse Ox 97 98 99 O2 Delivery Nasal Cannula Nasal Cannula Nasal Cannula Nasal Cannula O2 Flow Rate 2.0 2.0 2.0 10/29/20 10/29/20 10/29/20 10/29/20 04:13 05:47 06:17 07:15 Temp 97.8 97.8 Pulse 129 Resp B/P (MAP) 119/58 (78) Pulse Ox 95 2 O2 Delivery Nasal Cannula Nasal Cannula Nasal Cannula Nasal Cannula O2 Flow Rate 2.0 98.0 10/29/20 10/29/20 08:00 08:03 Pulse Ox 97 O2 Delivery Nasal Cannula Nasal Cannula O2 Flow Rate 2.0 2.0 Intake and Output 10/28/20 10/28/20 10/29/20 15:00 23:00 07:00 Intake Total 475 ml 975 ml 1100 ml Balance 475 ml 975 ml 1100 ml Justifications for Admission Other Justification Nutrition Consultation Dietary Evaluation: Recommendations by RD: Dietary education by RD, Increase Calorie Intake, Protein supplementation Comments: cardiac, neutropenic diet sending ensure bid, honor food preferences and offer snacks/ supplements from unit prn REC mvi and vit c per wound protocal Expected Outcomes/Goals: to meet > 75% est nutr needs Malnutrition Findings: Food and Nutrition Intake (Sev: <50% est energy req 5days Weight Status: Overweight BARTOLOME DESIR MD Oct 29, 2020 08:53
[2020-10-29] MEDS ORDERED: TBO-FILGRASTIM 480 MCG/0.8 ML SYRINGE. SQ ONE (09:00)
[2020-10-29] MEDS: SODIUM BICARBONATE 650 MG TABLET. PO SCH ×2 (09:00→09:07)
[2020-10-29] MEDS: predniSONE 10 MG TABLET PO SCH ×2 (09:00→09:07)
[2020-10-29] MEDS: LACTOBACILLUS RHAMNOSUS GG 1 CAPSULE. PO SCH ×3 (09:00→21:00)
[2020-10-29] MEDS: NYSTATIN 100,000 UNITS/ML 5 ML ORAL.SUSP. SWSW SCH ×4 (09:07→21:00)
--- NOTE | 2020-10-29 09:57 | NUR ---
SS following up with discharge planning. SS reviewed pt chart and discussed with pt RN. Pt is currently requiring oxygen at two liters nasal canula. Pt has no home oxygen. Pt on IV Levaquin and IV Flagyl. Pt getting platelets today. Pt transferring to room 652 today. SS will continue to follow for discharge planning.
--- NOTE | 2020-10-29 10:29 | RAD ---
EXAM: Chest, single view. HISTORY: Wheezing. COMPARISON: 10/26/2020 FINDINGS: A frontal view of the chest is obtained. There has been interval increase in diffuse inters titial infiltrate. There are stable suspected trace pleural effusions. There is a stable prominent ca rdiac silhouette. There is a port catheter with the tip in the superior cavoatrial junction. There ar e healed rib fractures. There are advanced degenerative change involving both shoulders. IMPRESSION: 1. Increase in diffuse interstitial infiltrate. 2. Stable suspected trace pleural effusions and prominent cardiac silhouette. Electronically signed by: Fide Solorio MD (10/29/2020 10:27 AM) [id number]
[2020-10-29] MEDS: MORPHINE SULFATE 4 MG/ML INJ. IV PRN ×2 (11:45→22:11)
[2020-10-29] MEDS ORDERED: METOPROLOL SUCC 24HR ER 25 MG TAB.ER.24H. PO SCH (12:15)
--- NOTE | 2020-10-29 12:24 | NUR ---
Patient tachycardic in the 150's. Patient given 4mg morphine - which did drop heart rate to 139. Dr. Brenner notified, he wanted her metoprolol restarted and cardiology consulted. I called consult. Patient currently has heart rate of 135. Attempted to give patient a few sips of her pepsi and she wouldn't swallow it and coughed. Will keep NPO for now.
--- NOTE | 2020-10-29 12:25 | PDOC2 ---
CARDIAC CONSULT DATE OF CONSULT Date of Consult DATE: 10/29/20 TIME: 12:14 REASON FOR CONSULT Reason for Consult: Tachycardia REFERRING PHYSICIAN Referring Physician: Appl SOURCE Source: Chart review, Patient HISTORY OF PRESENT ILLNESS HISTORY OF PRESENT ILLNESS This is an 85 yo female admitted for nausea vomiting and diarrhea. Apparently she has small cell lung CA and just got started on chemotherapy. As an inpt she has been treated for pneumonia and also for pancytopenia to which she got blood transfusion and pending platelet transfusion. Presently she is tachycardic hence this consult. No prior hx of CAD, VTE or arrhythmias. Her HR is in the 130s pssibly atrial flutter and awaiting EKG. She moans with her eyes and mouth open otherwise unable to communicate. Unable to retrieve details as pt is nonverbal presently. PAST MEDICAL HISTORY Past Medical History Cardiovascular: No pertinent hx, HTN Pulmonary: COPD, Other (lung cancer) CENTRAL NERVOUS SYSTEM: Other GI: Diverticulosis Heme/Onc: Cancer, anemia Hepatobiliary: No pertinent hx Psych: No pertinent hx Musculoskeletal: low back pain, Osteoarthritis, Other Rheumatologic: No pertinent hx Infectious disease: No pertinent hx Renal/: No pertinent hx Endocrine: No pertinent hx PAST SURGICAL HISTORY Past Surgical History Appendectomy, Cataract Removal, Total hip replacement, Other (right partial pneumonectomy for lung cancer.) FAMILY HISTORY Family History: Coronary Artery Disease SOCIAL HISTORY Smoke: No ALCOHOL: none Drugs: None Lives: with Family CURRENT MEDICATIONS CURRENT MEDICATIONS Current Medications Medications (Trade) Dose Ordered Sig/Fortunato Route PRN Reason Start Time Stop Time Status Last Admin Dose Admin Levofloxacin/ Dextrose 750 ml @ 500 mls/hr Q48H IV 10/28/20 17:00 10/28/20 20:37 Acetaminophen (Tylenol Supp) 650 mg PRN Q6HRS PRN [place] MILD PAIN / TEMP > 100.3'F 10/28/20 21:30 10/28/20 21:37 Diphenhydramine HCl (Benadryl) 25 mg PRN QHS PRN IVP SLEEP 10/28/20 21:30 10/28/20 21:38 Tbo-Filgrastim (Granix) 480 mcg 1X ONCE SQ 10/29/20 09:00 10/29/20 09:01 DC 10/29/20 09:08 ALLERGIES ALLERGIES: Coded Allergies: tomato (Verified Allergy, Severe, 09/08/16) strawberry (Verified Allergy, Intermediate, 09/07/16) ROS Review of System unreliable PHYSICAL EXAM General: Alert, Oriented X3 HEENT: Atraumatic Lungs: Other (diminished) Heart: Regular rate (possible atrial flutter with RVR) Abdomen: Other (anasarca) Extremities: No cyanosis Skin: Other (multiple ecchymoses) Neuro: Other (nonverbal) MUSCULOSKELETAL: Osteoarthritic changes both hands VITALS/I&O VITALS/I&O: Vital Signs Date Time Temp Pulse Resp B/P (MAP) Pulse Ox O2 Delivery O2 Flow Rate FiO2 10/29/20 12:09 96 Nasal Cannula 2.0 10/29/20 10:42 98.2 133 16 123/69 (87) 98.2 I & O 10/28/20 10/28/20 10/29/20 15:00 23:00 07:00 Intake Total 475 ml 975 ml 1100 ml Balance 475 ml 975 ml 1100 ml LABS Lab: Laboratory Tests Test 10/29/20 07:35 White Blood Count 0.1 x10^3/uL (4.0-11.0) *L Red Blood Count 2.93 x10^6/uL (3.50-5.40) L Hemoglobin 8.9 g/dL (12.0-15.5) L Hematocrit 26.8 % (36.0-47.0) L Mean Corpuscular Volume 92 fL (79-100) Mean Corpuscular Hemoglobin 30 pg (25-35) Mean Corpuscular Hemoglobin Concent 33 g/dL (31-37) Red Cell Distribution Width 16.6 % (11.5-14.5) H Platelet Count 8 x10^3/uL (140-400) *L Neutrophils (%) (Auto) 1 % (31-73) L Lymphocytes (%) (Auto) 86 % (24-48) H Monocytes (%) (Auto) 10 % (0-9) H Eosinophils (%) (Auto) 3 % (0-3) Basophils (%) (Auto) 0 % (0-3) Neutrophils # (Auto) 0.0 x10^3/uL (1.8-7.7) L Lymphocytes # (Auto) 0.1 x10^3/uL (1.0-4.8) L Monocytes # (Auto) 0.0 x10^3/uL (0.0-1.1) Eosinophils # (Auto) 0.0 x10^3/uL (0.0-0.7) Basophils # (Auto) 0.0 x10^3/uL (0.0-0.2) Sodium Level 147 mmol/L (136-145) H Potassium Level 4.2 mmol/L (3.5-5.1) Chloride Level 116 mmol/L (98-107) H Carbon Dioxide Level 20 mmol/L (21-32) L Anion Gap 11 (6-14) Blood Urea Nitrogen 22 mg/dL (7-20) H Creatinine 1.1 mg/dL (0.6-1.0) H Estimated GFR (Cockcroft-Gault) 57.4 Glucose Level 130 mg/dL (70-99) H Calcium Level 7.6 mg/dL (8.5-10.1) L Laboratory Tests 10/29/20 07:35 Laboratory Tests 10/29/20 07:35 ECHOCARDIOGRAM ECHOCARDIOGRAM <Conclusion> The left ventricle is normal size. The left ventricular systolic function is normal and the ejection fraction is within normal range. The Ejection Fraction is 55-60%. There is no significant aortic valvular stenosis. Doppler and Color Flow revealed no significant aortic regurgitation. Doppler and Color Flow revealed trace mitral valve regurgitation. Doppler and Color Flow revealed trace tricuspid regurgitation. DATE: 06/18/17 1210 STRESS TEST STRESS TEST Conclusion 1. Regadenoson cardioisotope stress test did not show any evidence of ischemia or infarct. 2. Normal left ventricular systolic function with ejection fraction calculated at >80%. 3. Low risk for cardiac events. DATE: 06/18/17 1515 ASSESSMENT/PLAN ASSESSMENT/PLAN 1. Anemia/thrombocytopenia 2. Pancytopenia/fever: S/P blood transfusion 3. Pneumonia 4. Small lung CA with chemotherapy 5. HTN: controlled 6. arrhythmia: possible atrial flutter with RVR vs reactive sinus tachycardia 7. Acute CHF with possible diastolic dysfunction 8. Encephalopathy: nonverbal 9. Hx of right partial pneumonectomy r/t lung CA Recommendations 1. Awaiting platelet transfusion with PLT at 8 2. EKG. Lopressor IV. Lasix x1 3. Presently NPO with associated dysphagia. Resume home metoprolol when able to take PO 4. TTE, stat head CT noncontrast 5. antibiotics ongoing SHERYL SCHAEFER PLASTIC MAKER Oct 29, 2020 12:25
[2020-10-29] MEDS: METOPROLOL IV PUSH 5 MG/5 ML VIAL. IVP SCH ×2 (12:58→18:10)
--- NOTE | 2020-10-29 13:00 | EKG ---
[facility] [address] [place] [address] Test Date: 2020-10-29 Test Time: 12:55:38 Pat Name: JOSE ALFREDO BOWSER Department: Room: [facility] Gender: F Second Steward: : 1935 Requested By: SHERYL SCHAEFER Order Number: [id number] Reading MD: Ward Alfaro Measurements Intervals [place] Rate: 135 P: -150 [place]: 64 QRS: 16 QRSD: 64 T: 175 QT: 336 QTc: 509 Interpretive Statements SINUS TACHYCARDIA LOW VOLTAGE QRS(T) CONTOUR ABNORMALITY CONSISTENT WITH ANTERIOR INFARCT AGE UNDETERMINED ABNORMAL ECG Electronically Signed On 11-03-2020 12:38:32 CDT by Ward Alfaro
[2020-10-29] MEDS ORDERED: FUROSEMIDE 20 MG/2 ML VIAL. IVP ONE (13:30)
--- NOTE | 2020-10-29 13:35 | RAD ---
EXAM: Head CT without contrast. HISTORY: Change in mentation. TECHNIQUE: Computed tomographic images of the head were obtained without contrast. *One or more of the following individualized dose reduction techniques were utilized for this examina tion: 1. Automated exposure control. 2. Adjustment of the mA and/or kV according to patient size. 3. Use of iterative reconstruction technique. COMPARISON: MRI dated 10/13/2020. FINDINGS: There is no acute or subacute extra-axial or intraparenchymal hemorrhage. There is no mass effect or midline shift. There is no hydrocephalus. There are areas of decreased attenuation within the cerebral white matter, nonspecific and likely rel ated to chronic small vessel disease. There is cerebral atrophy. The visualized portions of the orbits, paranasal sinuses and mastoid air cells are unremarkable. No s uspicious calvarial lesion is seen. IMPRESSION: 1. Bilateral cerebral white matter changes, likely due to chronic small vessel disease. 2. Cerebral atrophy. 3. Note is made that MRI is more sensitive for acute infarction. Electronically signed by: Fide Solorio MD (10/29/2020 1:33 PM) [id number]
--- NOTE | 2020-10-29 16:59 | CARD ---
MR#: [id number] Date of Study: 10/29/2020 Ordering Physician: SHERYL SCHAEFER, Referring Physician: SHERYL SCHAEFER Tech: Rosamaria Luis [facility] APPROVED REPORT EXAM: Two-dimensional and M-mode echocardiogram with Doppler and color Doppler. Other Information Quality : Technically LimitedHR: 121bpm Rhythm : NSR INDICATION Arrhythmia 2D DIMENSIONS Left Atrium(2D)2.7 (1.6-4.0cm)IVSd0.8 (0.7-1.1cm) Aortic Root(2D)2.6 (2.0-3.7cm)LVDd3.1 (3.9-5.9cm) LVOT Diameter2.1 (1.8-2.4cm)PWd0.8 (0.7-1.1cm) LVDs1.8 (2.5-4.0cm)FS (%) 43.3 % SV29.8 mlLVEF(%)75.9 (>50%) Tricuspid Valve TR P. [id number] Peak Gr.35mmHg LEFT VENTRICLE The left ventricle is normal size. There is normal left ventricular wall thickness. The left ventricu lar systolic function is normal. Estimated ejection fraction 50-55%. There is normal LV segmental wa ll motion. RIGHT VENTRICLE The right ventricle is normal size. There is normal right ventricular wall thickness. The right ventr icular systolic function is normal. ATRIA The left atrium size is normal. The right atrium size is normal. The interatrial septum is intact wit h no evidence for an atrial septal defect or patent foramen ovale as noted on 2-D or Doppler imaging. AORTIC VALVE The aortic valve is normal in structure and function. There is no significant aortic valvular stenosi s. MITRAL VALVE The mitral valve is normal in structure and function. There is no evidence of mitral valve prolapse. There is no mitral valve stenosis. TRICUSPID VALVE The tricuspid valve is normal in structure and function. Doppler and Color Flow revealed mild tricusp id regurgitation. Estimated PAP 45-50 mmHg. There is no tricuspid valve stenosis. GREAT VESSELS The aortic root is normal in size. The ascending aorta is normal in size. The IVC is dilated and kaleb apses <50% with inspiration. PERICARDIAL EFFUSION There is no evidence of significant pericardial effusion. Critical Notification Critical Value: No <Conclusion> The left ventricular systolic function is normal. Estimated ejection fraction 50-55%. There is normal LV segmental wall motion. Mild tricuspid regurgitation. Estimated PAP 45-50 mmHg. There is no evidence of significant pericardial effusion. Signed by : Ward Alfaro, Electronically Approved : 10/29/2020 16:58:49
--- NOTE | 2020-10-29 21:52 | PN ---
DATE: 10/29/2020 DAILY PROGRESS NOTE LOCATION: She is in room 508. SUBJECTIVE: This 85-year-old female remains hospitalized with neutropenia or neutropenia fever, small cell carcinoma. Her diarrhea is slowing down. She is having minimal p.o. intake. She does indicate that she does feel overall horrible still. OBJECTIVE: VITAL SIGNS: Stable. Temperature 99.7 max. CHEST: Clear. HEART: Tachycardic at 120. ABDOMEN: With ongoing epigastric tenderness. LABORATORY DATA: A.m labs are all still pending. IMPRESSION: 1. Metastatic small cell carcinoma of the lung. 2. Neutropenic fever due to chemotherapy. 3. Weakness. 4. Mild to moderate encephalopathy. PLAN: Ongoing hydration. She is back on Levaquin. C. diff was negative. Awaiting morning labs with plans to follow. AMY DR: Sherrie TID: [id number]
[2020-10-30] VITALS (7 sets, daily range): BP systolic 103–135; BP diastolic 46–72
[2020-10-30] MEDS: METOPROLOL IV PUSH 5 MG/5 ML VIAL. IVP SCH ×4 (00:13→17:35)
[2020-10-30] MEDS: MORPHINE SULFATE 4 MG/ML INJ. IV PRN ×6 (03:04→21:18)
[2020-10-30] MEDS: LACTOBACILLUS RHAMNOSUS GG 1 CAPSULE. PO SCH ×2 (07:25→19:49)
[2020-10-30] MEDS: PANTOPRAZOLE 40 MG TABLET.DR. PO SCH (07:25)
[2020-10-30] MEDS: predniSONE 10 MG TABLET PO SCH (07:25)
[2020-10-30] MEDS: SODIUM BICARBONATE 650 MG TABLET. PO SCH (07:26)
[2020-10-30] MEDS: IPRATRPIUM/ALBUTEROL 0.5/2.5MG 3 ML NEBU. NEB SCH ×3 (07:58→20:38)
[2020-10-30] MEDS: IV NORMAL SALINE 1000ML BAG 1,000 ML IV SCH (10:21)
[2020-10-30] MEDS: NYSTATIN 100,000 UNITS/ML 5 ML ORAL.SUSP. SWSW SCH ×4 (10:21→20:30)
[2020-10-30] MEDS: AMINO AC 3%/ELECTROLYTE/GLYCER 1,000 ML IV SCH (14:15)
[2020-10-30] MEDS: MORPHINE SULFATE 2 MG/ML INJ. IV PRN (16:25)
[2020-10-30] MEDS: LEVOFLOXACIN 750 MG IV SCH (17:27)
[2020-10-30] MEDS: TBO-FILGRASTIM 480 MCG/0.8 ML SYRINGE. SQ SCH (20:30)
--- NOTE | 2020-10-30 20:47 | PN ---
DATE: 10/30/2020 LOCATION: She is in room 652. SUBJECTIVE: This 85-year-old female remains hospitalized with multiple issues. Basically, the patient has neutropenic fever related to chemotherapy for small cell carcinoma with profound weakness, encephalopathy, anemia with transfusion, likely related to the same thrombocytopenia with transfusion, likely related to the same. Diarrhea, which has improved since admission with dehydration, which is improved. She was tachycardic yesterday, which was felt to be sinus tachycardia by Cardiology in relation to all of her underlying problems. OBJECTIVE: VITAL SIGNS: Stable. She is afebrile. GENERAL: She is awake, alert, but encephalopathic, not talking like she would. She is not swallowing per nursing and they are concerned for aspiration and a speech eval has been ordered. CHEST: Reveals decreased breath sounds, but clear. HEART: Regular, tachycardic at 120. ABDOMEN: Essentially benign. LABORATORY DATA: No a.m. labs are noted today and will be rechecked in the morning. Cardiology did do a CT head yesterday that showed no acute changes and chest x-ray showing diffuse interstitial infiltrate. We will need to change IV fluids around to procalamine due to inability to swallow at this point in time for a small amount of nutritional support. IMPRESSION: 1. Small cell carcinoma of the lung with chemotherapy. 2. Pancytopenia due to chemotherapy with transfusions as noted above. 3. Weakness with encephalopathy. 4. Reactive tachycardia. 5. Diarrhea, improved. 6. Dysphagia with suspected swallowing difficulties. PLAN: Change to procalamine as far as IV fluids. Follow labs. Hopefully, her bone marrow will begin to recover and she will recover, commence shortly. CORBIN DR: Sherrie TID: [id number]
[2020-10-31] VITALS (7 sets, daily range): BP systolic 92–148; BP diastolic 39–127
[2020-10-31] MEDS: METOPROLOL IV PUSH 5 MG/5 ML VIAL. IVP SCH ×4 (00:37→18:47)
[2020-10-31] MEDS: MORPHINE SULFATE 4 MG/ML INJ. IV PRN ×2 (00:39→06:15)
[2020-10-31] MEDS: AMINO AC 3%/ELECTROLYTE/GLYCER 1,000 ML IV SCH ×2 (01:07→21:03)
[2020-10-31] MEDS: IPRATRPIUM/ALBUTEROL 0.5/2.5MG 3 ML NEBU. NEB SCH ×3 (07:16→20:06)
[2020-10-31 07:25] LABS: BASO % 0 % (0-3); EOS % 3 % (0-3); HEMATOCRIT 22.9 % (36.0-47.0); HEMOGLOBIN 7.4 g/dL (12.0-15.5); LYMPH # 0.2 x10^3/uL (1.0-4.8); LYMPH % 83 % (24-48); MEAN CORPUSCULAR HEMOGLOBIN 30 pg (25-35); MEAN CORPUSCULAR HGB CONC 33 g/dL (31-37); MEAN CORPUSCULAR VOLUME 93 fL (79-100); MONO % 9 % (0-9); NEUT % 5 % (31-73); PLATELET COUNT 37 x10^3/uL (140-400); RED BLOOD COUNT 2.47 x10^6/uL (3.50-5.40); RED CELL DISTRIBUTION WIDTH 17.1 % (11.5-14.5)
[2020-10-31] MEDS: PANTOPRAZOLE 40 MG TABLET.DR. PO SCH (07:30)
[2020-10-31 07:34] LABS: ALBUMIN 1.6 g/dL (3.4-5.0); ALBUMIN/GLOBULIN RATIO 0.5 (1.0-1.7); CALCIUM 7.9 mg/dL (8.5-10.1); GFR 64.1; POTASSIUM 3.6 mmol/L (3.5-5.1); TOTAL BILIRUBIN 0.2 mg/dL (0.2-1.0); TOTAL PROTEIN 4.6 g/dL (6.4-8.2)
[2020-10-31 07:41] LABS: WHITE BLOOD COUNT 0.2 x10^3/uL (4.0-11.0)
--- NOTE | 2020-10-31 08:14 | NUR ---
Nurse's note: This nurse called rapid response at 0740, patient was noted to be drowsy, hypoxemic, oxygen saturation at 84-85% at 15 liters of oxygen per non rebreather mask; BP 94/48 HR 122 RR 12. The patient was placed on BiPAP which raised her oxygen sat to 98-99 %. She was observed to be more awake and responsive after the intervention. Called Dr. Brenner and new orders were received. Likewise relayed critical WBC result. Patient is also on NPO at present. We will continue to observe and notify daughter about the changes. Addendum: 10/31/20 at 0835 by MARIE LR RN Shabana, the patient's daughter was updated at 0832.
[2020-10-31] MEDS ORDERED: FUROSEMIDE 40 MG/4 ML VIAL. IVP ONE (08:15)
--- NOTE | 2020-10-31 08:34 | RAD ---
XR CHEST 1V History: Reason: hypoxemia, lung cancer / Spl. Instructions: / History: Comparison: October 29, 2020 Findings: Reticular interstitial opacities, unchanged. Patchy left mid lung opacity, unchanged. Prior granuloma tous disease within the chest. Stable right chest wall port. Chronic right-sided rib fractures. Small right pleural effusion, unchanged. Glenohumeral DJD. Impression: 1. Stable appearance of the chest compared to prior. Electronically signed by: Zeke Tilley DO (10/31/2020 8:32 AM) [facility]
[2020-10-31] MEDS: LACTOBACILLUS RHAMNOSUS GG 1 CAPSULE. PO SCH ×2 (08:36→19:59)
[2020-10-31] MEDS: predniSONE 10 MG TABLET PO SCH (08:36)
[2020-10-31] MEDS: SODIUM BICARBONATE 650 MG TABLET. PO SCH (08:36)
[2020-10-31] MEDS: NYSTATIN 100,000 UNITS/ML 5 ML ORAL.SUSP. SWSW SCH ×4 (09:00→21:02)
[2020-10-31 09:11] LABS: BASE EXCESS ABG -7 mmol/L (-3-3); HCO3 ABG 19 mmol/L (21-28); PCO2 ABG 42 mmHg (35-46); PO2 ABG 344 mmHg (65-108); SAT O2 ABG 99 % (92-99)
[2020-10-31 09:14] LABS: FIO2 ABG BIPAP 100%
[2020-10-31 18:07] LABS: BASE EXCESS ABG -5 mmol/L (-3-3); HCO3 ABG 20 mmol/L (21-28); PCO2 ABG 36 mmHg (35-46); PO2 ABG 397 mmHg (65-108); SAT O2 ABG 99 % (92-99)
--- NOTE | 2020-10-31 20:11 | PN ---
DATE: 10/31/2020 LOCATION: She is in room 652. SUBJECTIVE: This 85-year-old female remains hospitalized, multiple ongoing issues. The patient has had neutropenic fever related to chemotherapy for small cell carcinoma with profound weakness, encephalopathy, anemia with transfusion and thrombocytopenia with transfusion all related to chemo. Diarrhea on admission has improved. She remains tachycardic to some extent, but has felt reactive to her overall illness. She had some issues early this morning with hypoxemia and is currently on BiPAP with a pO2 of 343 on 100% BiPAP with pH of 7.28 and CO2 level normal. OBJECTIVE: VITAL SIGNS: Stable. GENERAL: She remains encephalopathic, but is able to shake her head. CHEST: Reveals decreased breath sounds. HEART: Tachycardic at 120. ABDOMEN: Benign. BiPAP is in place. LABORATORY DATA: White count is still 200, which has improved from yesterday. Platelets are up to 3700, hemoglobin is 7.4, which is down a bit. Renal function remains within normal limits. Sodium is 149. Chest x-ray shows interstitial infiltrates and I am concerned about fluid overload with the breathing and a dose of IV Lasix has been given. Albumin is 1.6 consistent with severe protein calorie malnutrition. IMPRESSION: 1. Small cell carcinoma of the lung with chemotherapy. 2. Pancytopenia related to chemo. 3. Weakness with encephalopathy. 4. Acute respiratory failure, likely volume overload. 5. Diarrhea, improved. 6. Reactive tachycardia. 7. Dysphagia. PLAN: Continue procalamine, IV Lasix. Follow labs daily. Ongoing antibiotic therapy with no current fevers. JACIEL DR: Sherrie TID: [id number]
[2020-10-31] MEDS: TBO-FILGRASTIM 480 MCG/0.8 ML SYRINGE. SQ SCH (21:02)
[2020-11-01] MEDS: AMINO AC 3%/ELECTROLYTE/GLYCER 1,000 ML IV SCH ×2 (00:03→21:28)
[2020-11-01 03:50] VITALS: BP 120/67
[2020-11-01] MEDS: METOPROLOL IV PUSH 5 MG/5 ML VIAL. IVP SCH ×4 (06:22→17:27)
[2020-11-01 06:58] LABS: BASO % 0 % (0-3); EOS % 2 % (0-3); HEMATOCRIT 22.8 % (36.0-47.0); HEMOGLOBIN 7.4 g/dL (12.0-15.5); LYMPH # 0.2 x10^3/uL (1.0-4.8); LYMPH % 87 % (24-48); MEAN CORPUSCULAR HEMOGLOBIN 30 pg (25-35); MEAN CORPUSCULAR HGB CONC 33 g/dL (31-37); MEAN CORPUSCULAR VOLUME 92 fL (79-100); MONO % 8 % (0-9); NEUT % 2 % (31-73); RED BLOOD COUNT 2.48 x10^6/uL (3.50-5.40); RED CELL DISTRIBUTION WIDTH 17.3 % (11.5-14.5)
[2020-11-01 07:00] VITALS: BP 115/60
[2020-11-01 07:01] LABS: ALBUMIN 1.4 g/dL (3.4-5.0); ALBUMIN/GLOBULIN RATIO 0.5 (1.0-1.7); ALK PHOS 95 U/L (46-116); ANION GAP 8 (6-14); AST (SGOT) 10 U/L (15-37); BLOOD UREA NITROGEN 30 mg/dL (7-20); BUN/CREATININE RATIO 33 (6-20); CALCIUM 7.8 mg/dL (8.5-10.1); CARBON DIOXIDE 22 mmol/L (21-32); CHLORIDE 115 mmol/L (98-107); CREATININE 0.9 mg/dL (0.6-1.0); GFR 72.4; GLUCOSE 99 mg/dL (70-99); SODIUM 145 mmol/L (136-145); TOTAL BILIRUBIN 0.3 mg/dL (0.2-1.0); TOTAL PROTEIN 4.4 g/dL (6.4-8.2)
[2020-11-01 07:06] LABS: ALT (SGPT) < 6 U/L (14-59)
[2020-11-01 07:19] LABS: WHITE BLOOD COUNT 0.2 x10^3/uL (4.0-11.0)
[2020-11-01 07:20] LABS: PLATELET COUNT 24 x10^3/uL (140-400)
[2020-11-01] MEDS: IPRATRPIUM/ALBUTEROL 0.5/2.5MG 3 ML NEBU. NEB SCH ×3 (07:22→18:15)
[2020-11-01] MEDS: PANTOPRAZOLE 40 MG TABLET.DR. PO SCH (07:30)
[2020-11-01] MEDS: LACTOBACILLUS RHAMNOSUS GG 1 CAPSULE. PO SCH ×2 (07:52→20:19)
[2020-11-01] MEDS: SODIUM BICARBONATE 650 MG TABLET. PO SCH (07:52)
[2020-11-01] MEDS: predniSONE 10 MG TABLET PO SCH (07:52)
[2020-11-01] MEDS: MORPHINE SULFATE 2 MG/ML INJ. IV PRN ×3 (10:23→21:19)
[2020-11-01] MEDS: NYSTATIN 100,000 UNITS/ML 5 ML ORAL.SUSP. SWSW SCH ×4 (10:28→21:19)
--- NOTE | 2020-11-01 10:49 | CONS ---
DATE OF CONSULTATION: 11/01/2020 PULMONARY CONSULTATION ATTENDING PHYSICIAN: Jamison Brenner MD REASON FOR CONSULTATION: Respiratory failure, lung cancer, neutropenic fever. HISTORY OF PRESENT ILLNESS: The patient is an 85-year-old female who was recently diagnosed with extensive stage small cell lung cancer. She has received palliative systemic chemo with carboplatin, etoposide and atezolizumab every 3 weeks on 10/19/2020. She received pegfilgrastim on 10/25/2020. She was brought into the hospital with generalized weakness, diarrhea. She also had some cough and shortness of breath. She was prescribed Levaquin as an outpatient, but did not improve. She was hospitalized with pancytopenia. White cell count was 0.2, hemoglobin 7.4 latest and platelets are 24,000. She developed progressive hypoxic respiratory failure requiring BiPAP. Arterial blood gases obtained yesterday on BiPAP showed a pH of 7.36, pCO2 of 36 and a pO2 of 397 on 100% FIO2. Currently, she is on 50% FiO2 with BiPAP. She does not follow much commands. I have obtained much of the history from the chart as well as questions from the nursing staff. She has declined. PAST MEDICAL HISTORY: Significant for CAD, hypertension, history of pneumonia, history of COPD, dementia, history of small cell lung cancer, currently getting chemo. PAST SURGICAL HISTORY: Appendectomy, cholecystectomy, cataract removal, total hip replacement and hysterectomy. FAMILY HISTORY: Coronary artery disease. SOCIAL HISTORY: History of tobacco use in the past. ALLERGIES: None to any medications. MEDICATIONS: Current medications were reviewed as listed in the [facility] including Levaquin and DuoNebs. REVIEW OF SYSTEMS: Unable to obtain from the patient. PHYSICAL EXAMINATION: VITAL SIGNS: Reviewed. She is afebrile, blood pressure stable, pulse ox is 100% on current FiO2 with BiPAP. NECK: Supple. LUNGS: With diminished breath sounds bilaterally. CARDIOVASCULAR: With a regular rate. ABDOMEN: Soft. EXTREMITIES: With no pitting edema. LABORATORY DATA: Reviewed. C. diff is negative. BUN is 30, creatinine 0.9, sodium 145, albumin is 1.4. ABGs discussed in my history of present illness. White cell count 0.2, hemoglobin 7.4 and platelets are 24,000. IMPRESSION: 1. Acute hypoxic respiratory failure secondary to underlying chronic obstructive pulmonary disease and neutropenic fever. Cannot exclude the possibility of pneumonia, although chest x-ray shows only minimal blunting of the right costophrenic angle. 2. Neutropenic fever, status post chemo. 3. Underlying chronic obstructive pulmonary disease. 4. Extensive small cell lung cancer, treated with palliative chemo with etoposide, atezolizumab as well as carboplatin. At this point, not seeing any acute lung injury from atezolizumab. 5. Underlying dementia. 6. Diarrhea with weakness and prerenal azotemia. RECOMMENDATIONS: 1. I have discussed with the patient's nurse that BiPAP can come off. She can be placed on a simple mask. 2. Continue empiric antibiotics. She has no further fever. 3. Monitor white cell count, platelets and hemoglobin. 4. Follow Infectious Disease recommendations. 5. I have spoken to the nursing staff. The daughter is aware of her clinical condition and is in the process of making decisions about her code status. 6. We will continue supportive care. 7. We will follow along with you. PB DR: Douglas TID: [id number]
[2020-11-01 11:00] VITALS: BP 109/52
--- NOTE | 2020-11-01 13:36 | PN ---
DATE: 11/01/2020 LOCATION: She is in room 652. SUBJECTIVE: This 85-year-old female remains hospitalized with multiple ongoing issues. She has had neutropenic fever related to chemotherapy for small cell carcinoma with profound weakness, encephalopathy, anemia with transfusion and thrombocytopenia with transfusion related to chemo. Diarrhea on admission has improved. She has remained slightly tachycardic. She is back on BiPAP at this point in time with low sats and I suspect a lot of this is just not picking up her sats good as her pO2 was still on 300s on the 100% BiPAP. OBJECTIVE: VITAL SIGNS: Stable. She is more awake and alert this morning, able to communicate by yes and nos with her head. She remains on BiPAP. CHEST: Reveals decreased breath sounds. HEART: Tachycardic at 110. ABDOMEN: Benign. LABORATORY DATA: Morning labs show ongoing neutropenia with a white count of 200, hemoglobin stable at 7.4, platelet count of 24,000. Sodium is down to 145, BUN is 30, creatinine 0.9, albumin remains depressed at 1.4. IMPRESSION: 1. Small cell carcinoma of the lung with chemotherapy. 2. Pancytopenia related to chemotherapy. 3. Weakness with encephalopathy. 4. Acute respiratory insufficiency, confusing with her pO2s as noted above. 5. Diarrhea, improved. 6. Reactive tachycardia. 7. Dysphagia. PLAN: Continue present procalamine for nutritional standpoint. Discussed with Oncology. YAJAIRA/VERONICA/RIDDHI DR: Sherrie TID: [id number]
[2020-11-01 15:00] VITALS: BP 125/61
[2020-11-01] MEDS: LEVOFLOXACIN 750 MG IV SCH (17:34)
[2020-11-01 19:00] VITALS: BP 102/58
[2020-11-01] MEDS: TBO-FILGRASTIM 480 MCG/0.8 ML SYRINGE. SQ SCH (21:19)
[2020-11-01 23:00] VITALS: BP 103/53
[2020-11-02] MEDS: METOPROLOL IV PUSH 5 MG/5 ML VIAL. IVP SCH ×5 (00:37→23:47)
[2020-11-02] MEDS: AMINO AC 3%/ELECTROLYTE/GLYCER 1,000 ML IV SCH ×2 (00:38→15:29)
[2020-11-02 03:00] VITALS: BP 124/67
[2020-11-02] MEDS: IPRATRPIUM/ALBUTEROL 0.5/2.5MG 3 ML NEBU. NEB SCH ×3 (07:18→20:53)
[2020-11-02 07:30] VITALS: BP 136/70
[2020-11-02] MEDS: PANTOPRAZOLE 40 MG TABLET.DR. PO SCH (08:50)
[2020-11-02] MEDS: NYSTATIN 100,000 UNITS/ML 5 ML ORAL.SUSP. SWSW SCH ×4 (08:50→21:00)
[2020-11-02] MEDS: predniSONE 10 MG TABLET PO SCH (08:50)
[2020-11-02] MEDS: LACTOBACILLUS RHAMNOSUS GG 1 CAPSULE. PO SCH ×2 (08:50→20:39)
[2020-11-02] MEDS: SODIUM BICARBONATE 650 MG TABLET. PO SCH (08:50)
--- NOTE | 2020-11-02 09:46 | PDOC ---
PULMONARY PROGRESS NOTES DATE: 11/02/20 TIME: 09:42 Subjective Pt. is resting on venti-mask no overnight event remains lethargic Vitals Vital Signs Date Time Temp Pulse Resp B/P (MAP) Pulse Ox O2 Delivery O2 Flow Rate FiO2 11/02/20 07:30 98.0 113 20 136/70 (92) 100 Venturi Mask 98.0 11/02/20 07:18 12.0 General: Lethargic HEENT: Other Lungs: Other Cardiovascular: S1, S2 Abdomen: Soft, Non-tender Extremities: No Edema Labs Laboratory Tests Test 10/31/20 17:18 11/01/20 06:25 O2 Saturation 99 % (92-99) Arterial Blood pH 7.36 (7.35-7.45) Arterial Blood pCO2 at Patient Temp 36 mmHg (35-46) Arterial Blood pO2 at Patient Temp 397 mmHg (65-108) Arterial Blood HCO3 20 mmol/L (21-28) Arterial Blood Base Excess -5 mmol/L (-3-3) FiO2 bipap 100% White Blood Count 0.2 x10^3/uL (4.0-11.0) Red Blood Count 2.48 x10^6/uL (3.50-5.40) Hemoglobin 7.4 g/dL (12.0-15.5) Hematocrit 22.8 % (36.0-47.0) Mean Corpuscular Volume 92 fL (79-100) Mean Corpuscular Hemoglobin 30 pg (25-35) Mean Corpuscular Hemoglobin Concent 33 g/dL (31-37) Red Cell Distribution Width 17.3 % (11.5-14.5) Platelet Count 24 x10^3/uL (140-400) Neutrophils (%) (Auto) 2 % (31-73) Lymphocytes (%) (Auto) 87 % (24-48) Monocytes (%) (Auto) 8 % (0-9) Eosinophils (%) (Auto) 2 % (0-3) Basophils (%) (Auto) 0 % (0-3) Neutrophils # (Auto) 0.0 x10^3/uL (1.8-7.7) Lymphocytes # (Auto) 0.2 x10^3/uL (1.0-4.8) Monocytes # (Auto) 0.0 x10^3/uL (0.0-1.1) Eosinophils # (Auto) 0.0 x10^3/uL (0.0-0.7) Basophils # (Auto) 0.0 x10^3/uL (0.0-0.2) Sodium Level 145 mmol/L (136-145) Potassium Level 4.0 mmol/L (3.5-5.1) Chloride Level 115 mmol/L (98-107) Carbon Dioxide Level 22 mmol/L (21-32) Anion Gap 8 (6-14) Blood Urea Nitrogen 30 mg/dL (7-20) Creatinine 0.9 mg/dL (0.6-1.0) Estimated GFR (Cockcroft-Gault) 72.4 BUN/Creatinine Ratio 33 (6-20) Glucose Level 99 mg/dL (70-99) Uric Acid 2.9 mg/dL (2.6-6.0) Calcium Level 7.8 mg/dL (8.5-10.1) Total Bilirubin 0.3 mg/dL (0.2-1.0) Aspartate Amino Transf (AST/SGOT) 10 U/L (15-37) Alanine Aminotransferase (ALT/SGPT) < 6 U/L (14-59) Alkaline Phosphatase 95 U/L (46-116) Total Protein 4.4 g/dL (6.4-8.2) Albumin 1.4 g/dL (3.4-5.0) Albumin/Globulin Ratio 0.5 (1.0-1.7) Medications Active Scripts Medications Dose Route/Sig Max Daily Dose Days Date Category Ibuprofen 600 Mg Tablet 600 Mg PO PRN Q6HRS PRN 10/13/20 Reported Prednisone (Prednisone) 10 Mg Tablet 30 Mg PO DAILY 10 10/05/20 Rx Amlodipine Besylate 5 Mg Tablet 5 Mg PO DAILY 30 10/05/20 Rx Namenda (Memantine Hcl) 10 Mg Tablet 10 Mg PO BID 09/24/20 Reported Meclizine Hcl 25 Mg Tablet 1 Tab PO BID 09/24/20 Reported Allopurinol 300 Mg Tablet 1 Tab PO DAILY 09/24/20 Reported Gabapentin 300 Mg Capsule 100 Mg PO DAILY 09/24/20 Reported Hydrocodone-Apap 5-325 (Hydrocodone Bit/Acetaminophen) 1 Tab Tablet 1 Tab PO PRN Q6HRS PRN 8/14/19 Reported Tylenol (Acetaminophen) 325 Mg Tablet 500 Mg PO PRN 08/08/18 Reported Sodium Bicarbonate 650 Mg Tablet 1 Tab PO DAILY 08/08/18 Reported Metoprolol Succinate ( Xl ) (Metoprolol Succinate) 25 Mg Tab.er.24h 1 Tab PO DAILY 08/08/18 Reported Mucinex (Guaifenesin) 600 Mg Tablet.er 1 Tab PO BID 08/08/18 Reported [Pantoprazole] 40 MG Tablet.dr 40 Mg PO DAILYAC 30 07/18/18 Rx Daliresp (Roflumilast) 500 Mcg Tablet 500 Mcg PO DAILY 06/16/17 Reported Nitrostat (Nitroglycerin) 0.4 Mg Tab.subl 0.4 Mg SL PRN Q5MIN PRN 06/02/16 Rx Aspirin Ec (Aspirin) 81 Mg Tablet.dr 81 Mg PO DAILYWBKFT 06/02/16 Rx Duoneb 0.5-3(2.5) Mg/3 Ml (Albuterol/Ipratropium) 3 Ml Ampul.neb 3 Ml NEB TID 05/31/16 Reported Impression . IMPRESSION: 1. Acute hypoxic respiratory failure secondary to underlying chronic obstructive pulmonary disease and neutropenic fever. Cannot exclude the possibility of pneumonia, although chest x-ray shows only minimal blunting of the right costophrenic angle. 2. Neutropenic fever, status post chemo. 3. Underlying chronic obstructive pulmonary disease. 4. Extensive small cell lung cancer, treated with palliative chemo with etoposide, atezolizumab as well as carboplatin. At this point, not seeing any acute lung injury from atezolizumab. 5. Underlying dementia. 6. Diarrhea with weakness and prerenal azotemia. Plan . Updated 11/02/20 Continue supplemental oxygen, pt. is on venti-mask, transition to NC oxygen and wean to keep sats above 92% No further fever Follow Oncology recs-- Monitor WBC Continue PPN for nutritional support Pt. is now a DNR Social work for DC planning, pt. family is wanting to take pt. home on hospice DVT/GI PPX D/W RN 11/01/20RECOMMENDATIONS: 1. I have discussed with the patient's nurse that BiPAP can come off. She can be placed on a simple mask. 2. Continue empiric antibiotics. She has no further fever. 3. Monitor white cell count, platelets and hemoglobin. 4. Follow Infectious Disease recommendations. 5. I have spoken to the nursing staff. The daughter is aware of her clinical condition and is in the process of making decisions about her code status. 6. We will continue supportive care. 7. We will follow along with you. FLY BOSTON MD Nov 02, 2020 09:46
[2020-11-02 10:27] LABS: BASO % 0 % (0-3); EOS % 1 % (0-3); HEMATOCRIT 24.3 % (36.0-47.0); HEMOGLOBIN 7.8 g/dL (12.0-15.5); LYMPH # 0.2 x10^3/uL (1.0-4.8); LYMPH % 76 % (24-48); MEAN CORPUSCULAR HEMOGLOBIN 29 pg (25-35); MEAN CORPUSCULAR HGB CONC 32 g/dL (31-37); MEAN CORPUSCULAR VOLUME 91 fL (79-100); MONO % 17 % (0-9); NEUT % 6 % (31-73); RED BLOOD COUNT 2.66 x10^6/uL (3.50-5.40); RED CELL DISTRIBUTION WIDTH 16.8 % (11.5-14.5)
[2020-11-02 10:32] LABS: PLATELET COUNT 12 x10^3/uL (140-400); WHITE BLOOD COUNT 0.2 x10^3/uL (4.0-11.0)
[2020-11-02 10:47] LABS: ALBUMIN 1.5 g/dL (3.4-5.0); ALBUMIN/GLOBULIN RATIO 0.5 (1.0-1.7); CALCIUM 8.1 mg/dL (8.5-10.1); CREATININE 0.8 mg/dL (0.6-1.0); GFR 82.9; POTASSIUM 3.6 mmol/L (3.5-5.1); TOTAL BILIRUBIN 0.4 mg/dL (0.2-1.0); TOTAL PROTEIN 4.5 g/dL (6.4-8.2)
[2020-11-02 11:08] VITALS: BP 134/68
--- NOTE | 2020-11-02 11:57 | NUR ---
SW following. Discussed with RN, pt from home with family, joyce nesbitt, NPO. Initially plan was for SW to speak to family about arranging hospice - however oncology wanting to hold off a couple more days to see if pt's mentation improves. Pt has critical labs today. SW will continue to follow.
[2020-11-02] MEDS: MORPHINE SULFATE 2 MG/ML INJ. IV PRN (12:22)
--- NOTE | 2020-11-02 14:19 | PN ---
DATE: 11/02/2020 DAILY PROGRESS NOTE LOCATION: She is in room 652. SUBJECTIVE: This 85-year-old female remains hospitalized with multiple ongoing issues. She has neutropenic fever with ongoing chemotherapy for small cell carcinoma of the lung. She has profound weakness, encephalopathy, diarrhea on admission. She remains slightly tachycardic. She is on facemask oxygen this morning opposed the BiPAP yesterday. OBJECTIVE: VITAL SIGNS: Stable. GENERAL: She is more awake and alert, is able to squeeze my hand, nod yes or no to questions, but is nonverbal. CHEST: Reveals decreased breath sounds. HEART: Tachycardic. ABDOMEN: Benign. LABORATORY DATA: Morning labs are pending. IMPRESSION: 1. Small cell carcinoma with chemotherapy. 2. Pancytopenia related to chemotherapy. 3. Weakness with encephalopathy. 4. Acute respiratory insufficiency. 5. Diarrhea, improved. 6. Reactive tachycardia. 7. Dysphagia with mucositis. PLAN: Continue supportive care. Would expect gradual improvement as she recovers from the chemotherapy hopefully. CLAU/DIXIE DR: Sherrie TID: [id number]
[2020-11-02 15:41] VITALS: BP 113/61
[2020-11-02 19:00] VITALS: BP 111/57
[2020-11-02] MEDS: diphenhydrAMINE 50 MG/ML VIAL IVP PRN (21:38)
[2020-11-02] MEDS: TBO-FILGRASTIM 480 MCG/0.8 ML SYRINGE. SQ SCH (21:38)
[2020-11-02 23:00] VITALS: BP 106/56
[2020-11-03] VITALS (10 sets, daily range): BP systolic 108–137; BP diastolic 56–68
[2020-11-03] MEDS: AMINO AC 3%/ELECTROLYTE/GLYCER 1,000 ML IV SCH ×2 (06:24→18:04)
[2020-11-03] MEDS: MORPHINE SULFATE 2 MG/ML INJ. IV PRN (06:27)
[2020-11-03] MEDS: METOPROLOL IV PUSH 5 MG/5 ML VIAL. IVP SCH ×3 (06:27→18:04)
[2020-11-03] MEDS: PANTOPRAZOLE IV PUSH 40 MG VIAL. IVP SCH (06:35)
[2020-11-03] MEDS: IPRATRPIUM/ALBUTEROL 0.5/2.5MG 3 ML NEBU. NEB SCH ×3 (07:31→21:26)
[2020-11-03] MEDS: SODIUM BICARBONATE 650 MG TABLET. PO SCH (08:07)
[2020-11-03] MEDS: LACTOBACILLUS RHAMNOSUS GG 1 CAPSULE. PO SCH ×2 (08:07→21:00)
[2020-11-03] MEDS: NYSTATIN 100,000 UNITS/ML 5 ML ORAL.SUSP. SWSW SCH ×4 (08:07→21:00)
[2020-11-03] MEDS: predniSONE 10 MG TABLET PO SCH (08:07)
--- NOTE | 2020-11-03 09:16 | PDOC ---
PULMONARY PROGRESS NOTES DATE: 11/03/20 TIME: 09:14 Subjective Pt. is resting on canula no overnight event remains lethargic Vitals Vital Signs Date Time Temp Pulse Resp B/P (MAP) Pulse Ox O2 Delivery O2 Flow Rate FiO2 11/03/20 07:32 100 Nasal Cannula 3.0 11/03/20 07:30 98.0 111 20 120/62 (81) 98.0 General: Lethargic Lungs: Clear Cardiovascular: S1, S2 Abdomen: Soft, Non-tender Extremities: No Edema Labs Laboratory Tests Test 11/02/20 10:10 White Blood Count 0.2 x10^3/uL (4.0-11.0) Red Blood Count 2.66 x10^6/uL (3.50-5.40) Hemoglobin 7.8 g/dL (12.0-15.5) Hematocrit 24.3 % (36.0-47.0) Mean Corpuscular Volume 91 fL (79-100) Mean Corpuscular Hemoglobin 29 pg (25-35) Mean Corpuscular Hemoglobin Concent 32 g/dL (31-37) Red Cell Distribution Width 16.8 % (11.5-14.5) Platelet Count 12 x10^3/uL (140-400) Neutrophils (%) (Auto) 6 % (31-73) Lymphocytes (%) (Auto) 76 % (24-48) Monocytes (%) (Auto) 17 % (0-9) Eosinophils (%) (Auto) 1 % (0-3) Basophils (%) (Auto) 0 % (0-3) Neutrophils # (Auto) 0.0 x10^3/uL (1.8-7.7) Lymphocytes # (Auto) 0.2 x10^3/uL (1.0-4.8) Monocytes # (Auto) 0.0 x10^3/uL (0.0-1.1) Eosinophils # (Auto) 0.0 x10^3/uL (0.0-0.7) Basophils # (Auto) 0.0 x10^3/uL (0.0-0.2) Sodium Level 151 mmol/L (136-145) Potassium Level 3.6 mmol/L (3.5-5.1) Chloride Level 117 mmol/L (98-107) Carbon Dioxide Level 23 mmol/L (21-32) Anion Gap 11 (6-14) Blood Urea Nitrogen 28 mg/dL (7-20) Creatinine 0.8 mg/dL (0.6-1.0) Estimated GFR (Cockcroft-Gault) 82.9 BUN/Creatinine Ratio 35 (6-20) Glucose Level 107 mg/dL (70-99) Calcium Level 8.1 mg/dL (8.5-10.1) Total Bilirubin 0.4 mg/dL (0.2-1.0) Aspartate Amino Transf (AST/SGOT) 11 U/L (15-37) Alanine Aminotransferase (ALT/SGPT) 8 U/L (14-59) Alkaline Phosphatase 96 U/L (46-116) Total Protein 4.5 g/dL (6.4-8.2) Albumin 1.5 g/dL (3.4-5.0) Albumin/Globulin Ratio 0.5 (1.0-1.7) Laboratory Tests Test 11/02/20 10:10 White Blood Count 0.2 x10^3/uL (4.0-11.0) Red Blood Count 2.66 x10^6/uL (3.50-5.40) Hemoglobin 7.8 g/dL (12.0-15.5) Hematocrit 24.3 % (36.0-47.0) Mean Corpuscular Volume 91 fL (79-100) Mean Corpuscular Hemoglobin 29 pg (25-35) Mean Corpuscular Hemoglobin Concent 32 g/dL (31-37) Red Cell Distribution Width 16.8 % (11.5-14.5) Platelet Count 12 x10^3/uL (140-400) Neutrophils (%) (Auto) 6 % (31-73) Lymphocytes (%) (Auto) 76 % (24-48) Monocytes (%) (Auto) 17 % (0-9) Eosinophils (%) (Auto) 1 % (0-3) Basophils (%) (Auto) 0 % (0-3) Neutrophils # (Auto) 0.0 x10^3/uL (1.8-7.7) Lymphocytes # (Auto) 0.2 x10^3/uL (1.0-4.8) Monocytes # (Auto) 0.0 x10^3/uL (0.0-1.1) Eosinophils # (Auto) 0.0 x10^3/uL (0.0-0.7) Basophils # (Auto) 0.0 x10^3/uL (0.0-0.2) Sodium Level 151 mmol/L (136-145) Potassium Level 3.6 mmol/L (3.5-5.1) Chloride Level 117 mmol/L (98-107) Carbon Dioxide Level 23 mmol/L (21-32) Anion Gap 11 (6-14) Blood Urea Nitrogen 28 mg/dL (7-20) Creatinine 0.8 mg/dL (0.6-1.0) Estimated GFR (Cockcroft-Gault) 82.9 BUN/Creatinine Ratio 35 (6-20) Glucose Level 107 mg/dL (70-99) Calcium Level 8.1 mg/dL (8.5-10.1) Total Bilirubin 0.4 mg/dL (0.2-1.0) Aspartate Amino Transf (AST/SGOT) 11 U/L (15-37) Alanine Aminotransferase (ALT/SGPT) 8 U/L (14-59) Alkaline Phosphatase 96 U/L (46-116) Total Protein 4.5 g/dL (6.4-8.2) Albumin 1.5 g/dL (3.4-5.0) Albumin/Globulin Ratio 0.5 (1.0-1.7) Medications Active Scripts Medications Dose Route/Sig Max Daily Dose Days Date Category Ibuprofen 600 Mg Tablet 600 Mg PO PRN Q6HRS PRN 10/13/20 Reported Prednisone (Prednisone) 10 Mg Tablet 30 Mg PO DAILY 10 10/05/20 Rx Amlodipine Besylate 5 Mg Tablet 5 Mg PO DAILY 30 10/05/20 Rx Namenda (Memantine Hcl) 10 Mg Tablet 10 Mg PO BID 09/24/20 Reported Meclizine Hcl 25 Mg Tablet 1 Tab PO BID 09/24/20 Reported Allopurinol 300 Mg Tablet 1 Tab PO DAILY 09/24/20 Reported Gabapentin 300 Mg Capsule 100 Mg PO DAILY 09/24/20 Reported Hydrocodone-Apap 5-325 (Hydrocodone Bit/Acetaminophen) 1 Tab Tablet 1 Tab PO PRN Q6HRS PRN 12/11/18 Reported Tylenol (Acetaminophen) 325 Mg Tablet 500 Mg PO PRN 08/08/18 Reported Sodium Bicarbonate 650 Mg Tablet 1 Tab PO DAILY 08/08/18 Reported Metoprolol Succinate ( Xl ) (Metoprolol Succinate) 25 Mg Tab.er.24h 1 Tab PO DAILY 08/08/18 Reported Mucinex (Guaifenesin) 600 Mg Tablet.er 1 Tab PO BID 08/08/18 Reported [Pantoprazole] 40 MG Tablet. 40 Mg PO DAILYAC 30 07/18/18 Rx Daliresp (Roflumilast) 500 Mcg Tablet 500 Mcg PO DAILY 06/16/17 Reported Nitrostat (Nitroglycerin) 0.4 Mg Tab.subl 0.4 Mg SL PRN Q5MIN PRN 06/02/16 Rx Aspirin Ec (Aspirin) 81 Mg Tablet. 81 Mg PO DAILYWBKFT 06/02/16 Rx Duoneb 0.5-3(2.5) Mg/3 Ml (Albuterol/Ipratropium) 3 Ml Ampul.neb 3 Ml NEB TID 05/31/16 Reported Impression . IMPRESSION: 1. Acute hypoxic respiratory failure secondary to underlying chronic obstructive pulmonary disease and neutropenic fever. Cannot exclude the possibility of pneumonia, although chest x-ray shows only minimal blunting of the right costophrenic angle. 2. Neutropenic fever, status post chemo. 3. Underlying chronic obstructive pulmonary disease. 4. Extensive small cell lung cancer, treated with palliative chemo with etoposide, atezolizumab as well as carboplatin. At this point, not seeing any acute lung injury from atezolizumab. 5. Underlying dementia. 6. Diarrhea with weakness and prerenal azotemia. Plan . Updated 11/03/20 Continue supplemental oxygen, wean to keep sats above 92% No further fever Follow Oncology recs-- Monitor WBC Continue PPN for nutritional support Pt. is now a DNR Social work for DC planning, pt. family is wanting to take pt. home on hospice DVT/GI PPX D/W RN Updated 11/02/20 Continue supplemental oxygen, pt. is on venti-mask, transition to NC oxygen and wean to keep sats above 92% No further fever Follow Oncology recs-- Monitor WBC Continue PPN for nutritional support Pt. is now a DNR Social work for DC planning, pt. family is wanting to take pt. home on hospice DVT/GI PPX D/W RN 11/01/20RECOMMENDATIONS: 1. I have discussed with the patient's nurse that BiPAP can come off. She can be placed on a simple mask. 2. Continue empiric antibiotics. She has no further fever. 3. Monitor white cell count, platelets and hemoglobin. 4. Follow Infectious Disease recommendations. 5. I have spoken to the nursing staff. The daughter is aware of her clinical condition and is in the process of making decisions about her code status. 6. We will continue supportive care. 7. We will follow along with you. FLY BOSTON MD Nov 03, 2020 09:16
--- NOTE | 2020-11-03 09:23 | PN ---
DATE: 11/03/2020 DAILY PROGRESS NOTE LOCATION: She is in room 652. SUBJECTIVE: This 85-year-old female remains hospitalized with multiple ongoing issues. She has had neutropenic fever with ongoing chemotherapy for small cell carcinoma of the lung. She continues with profound weakness. She is less encephalopathic; however, this morning, able to shake her head yes and no and mouth words to me that I understand. She had diarrhea on admission, which has improved. She is back on her 3 liters per nasal cannula oxygen after needing increased oxygen over the last couple of days. OBJECTIVE: VITAL SIGNS: Stable. She is afebrile. GENERAL: She is daily a little bit more awake and alert. CHEST: Decreased breath sounds. HEART: Tachycardic. ABDOMEN: Benign. LABORATORY DATA: Morning labs are pending. Yesterday's labs still showed a white count of 200, hemoglobin stable at 7.8. Her platelet count was 12,000. Yesterday's CMP shows an albumin of 1.5, sodium high at 151, BUN 28, creatinine 0.8. IMPRESSION: 1. Small cell carcinoma with chemotherapy and pancytopenia related to the same. 2. Weakness and encephalopathy. 3. Acute respiratory insufficiency, improved. 4. Diarrhea, improved. 5. Reactive tachycardia. 6. Dysphagia with mucositis. PLAN: Continue supportive care. I would expect gradual improvement as her bone marrow begins to recover, which should be any time. JACKIE/CASEY DR: Sherrie TID: [id number]
[2020-11-03 12:47] LABS: BASO % 0 % (0-3); EOS % 0 % (0-3); HEMATOCRIT 23.5 % (36.0-47.0); HEMOGLOBIN 7.7 g/dL (12.0-15.5); LYMPH # 0.2 x10^3/uL (1.0-4.8); LYMPH % 65 % (24-48); MEAN CORPUSCULAR HEMOGLOBIN 30 pg (25-35); MEAN CORPUSCULAR HGB CONC 33 g/dL (31-37); MEAN CORPUSCULAR VOLUME 91 fL (79-100); MONO # 0.1 x10^3/uL (0.0-1.1); MONO % 21 % (0-9); NEUT # 0.1 x10^3/uL (1.8-7.7); NEUT % 14 % (31-73); RED CELL DISTRIBUTION WIDTH 17.2 % (11.5-14.5)
[2020-11-03 12:51] LABS: ALBUMIN 1.4 g/dL (3.4-5.0); ALBUMIN/GLOBULIN RATIO 0.5 (1.0-1.7); ALK PHOS 78 U/L (46-116); ANION GAP 8 (6-14); AST (SGOT) 8 U/L (15-37); BLOOD UREA NITROGEN 31 mg/dL (7-20); BUN/CREATININE RATIO 34 (6-20); CARBON DIOXIDE 25 mmol/L (21-32); CHLORIDE 117 mmol/L (98-107); CREATININE 0.9 mg/dL (0.6-1.0); GFR 72.4; GLUCOSE 90 mg/dL (70-99); SODIUM 150 mmol/L (136-145); TOTAL BILIRUBIN 0.4 mg/dL (0.2-1.0); TOTAL PROTEIN 4.4 g/dL (6.4-8.2)
[2020-11-03 13:03] LABS: ALT (SGPT) < 6 U/L (14-59); WHITE BLOOD COUNT 0.4 x10^3/uL (4.0-11.0)
[2020-11-03 13:04] LABS: PLATELET COUNT 6 x10^3/uL (140-400)
[2020-11-03] MEDS: LEVOFLOXACIN 750 MG IV SCH (18:04)
[2020-11-03] MEDS ORDERED: POLYVINYL ALCOHOL 1.4% OPHTH SOLUTION 15ML BOTTLE. OU PRN (18:15)
[2020-11-03] MEDS ORDERED: FILGRASTIM 480 MCG/1.6 ML SQ SCH (21:00)
[2020-11-03] MEDS: diphenhydrAMINE 50 MG/ML VIAL IVP PRN (22:21)
[2020-11-04] MEDS: METOPROLOL IV PUSH 5 MG/5 ML VIAL. IVP SCH ×4 (00:16→18:03)
[2020-11-04 03:18] VITALS: BP 124/66
[2020-11-04] MEDS: AMINO AC 3%/ELECTROLYTE/GLYCER 1,000 ML IV SCH ×2 (04:45→12:50)
[2020-11-04] MEDS: PANTOPRAZOLE IV PUSH 40 MG VIAL. IVP SCH (06:11)
--- NOTE | 2020-11-04 07:07 | EKG ---
[facility] [address] [place] [address] Test Date: 2020-11-03 Test Time: 22:51:51 Pat Name: JOSE ALFREDO BOWSER Department: Room: [facility] Gender: F Photographic Spotter: : 1935 Requested By: GISELLE GUAJARDO Order Number: [id number] Reading MD: Measurements Intervals [place] Rate: 91 P: 90 MI: 164 QRS: 85 QRSD: 82 T: 67 QT: 346 QTc: 427 Interpretive Statements SINUS RHYTHM ATRIAL PREMATURE COMPLEX(ES) NO SPECIFIC ECG ABNORMALITIES RI6.01 No previous ECG available for comparison
[2020-11-04] MEDS: IPRATRPIUM/ALBUTEROL 0.5/2.5MG 3 ML NEBU. NEB SCH ×3 (07:20→20:20)
[2020-11-04 07:30] VITALS: BP 118/57
[2020-11-04] MEDS: predniSONE 10 MG TABLET PO SCH (08:04)
[2020-11-04] MEDS: LACTOBACILLUS RHAMNOSUS GG 1 CAPSULE. PO SCH (08:04)
[2020-11-04] MEDS: SODIUM BICARBONATE 650 MG TABLET. PO SCH (08:04)
[2020-11-04] MEDS: NYSTATIN 100,000 UNITS/ML 5 ML ORAL.SUSP. SWSW SCH ×4 (08:04→22:35)
--- NOTE | 2020-11-04 09:22 | PDOC ---
PULMONARY PROGRESS NOTES DATE: 11/04/20 TIME: 09:21 Subjective Pt. is resting on canula no overnight event remains lethargic Vitals Vital Signs Date Time Temp Pulse Resp B/P (MAP) Pulse Ox O2 Delivery O2 Flow Rate FiO2 11/04/20 07:30 98.5 109 18 118/57 (77) 100 Nasal Cannula 3.0 98.5 General: Lethargic Lungs: Clear Cardiovascular: S1, S2 Abdomen: Soft, Non-tender Extremities: No Edema Labs Laboratory Tests Test 11/02/20 10:10 11/03/20 12:25 White Blood Count 0.2 x10^3/uL (4.0-11.0) 0.4 x10^3/uL (4.0-11.0) Red Blood Count 2.66 x10^6/uL (3.50-5.40) 2.60 x10^6/uL (3.50-5.40) Hemoglobin 7.8 g/dL (12.0-15.5) 7.7 g/dL (12.0-15.5) Hematocrit 24.3 % (36.0-47.0) 23.5 % (36.0-47.0) Mean Corpuscular Volume 91 fL (79-100) 91 fL (79-100) Mean Corpuscular Hemoglobin 29 pg (25-35) 30 pg (25-35) Mean Corpuscular Hemoglobin Concent 32 g/dL (31-37) 33 g/dL (31-37) Red Cell Distribution Width 16.8 % (11.5-14.5) 17.2 % (11.5-14.5) Platelet Count 12 x10^3/uL (140-400) 6 x10^3/uL (140-400) Neutrophils (%) (Auto) 6 % (31-73) 14 % (31-73) Lymphocytes (%) (Auto) 76 % (24-48) 65 % (24-48) Monocytes (%) (Auto) 17 % (0-9) 21 % (0-9) Eosinophils (%) (Auto) 1 % (0-3) 0 % (0-3) Basophils (%) (Auto) 0 % (0-3) 0 % (0-3) Neutrophils # (Auto) 0.0 x10^3/uL (1.8-7.7) 0.1 x10^3/uL (1.8-7.7) Lymphocytes # (Auto) 0.2 x10^3/uL (1.0-4.8) 0.2 x10^3/uL (1.0-4.8) Monocytes # (Auto) 0.0 x10^3/uL (0.0-1.1) 0.1 x10^3/uL (0.0-1.1) Eosinophils # (Auto) 0.0 x10^3/uL (0.0-0.7) 0.0 x10^3/uL (0.0-0.7) Basophils # (Auto) 0.0 x10^3/uL (0.0-0.2) 0.0 x10^3/uL (0.0-0.2) Sodium Level 151 mmol/L (136-145) 150 mmol/L (136-145) Potassium Level 3.6 mmol/L (3.5-5.1) 4.0 mmol/L (3.5-5.1) Chloride Level 117 mmol/L (98-107) 117 mmol/L (98-107) Carbon Dioxide Level 23 mmol/L (21-32) 25 mmol/L (21-32) Anion Gap 11 (6-14) 8 (6-14) Blood Urea Nitrogen 28 mg/dL (7-20) 31 mg/dL (7-20) Creatinine 0.8 mg/dL (0.6-1.0) 0.9 mg/dL (0.6-1.0) Estimated GFR (Cockcroft-Gault) 82.9 72.4 BUN/Creatinine Ratio 35 (6-20) 34 (6-20) Glucose Level 107 mg/dL (70-99) 90 mg/dL (70-99) Calcium Level 8.1 mg/dL (8.5-10.1) 8.0 mg/dL (8.5-10.1) Total Bilirubin 0.4 mg/dL (0.2-1.0) 0.4 mg/dL (0.2-1.0) Aspartate Amino Transf (AST/SGOT) 11 U/L (15-37) 8 U/L (15-37) Alanine Aminotransferase (ALT/SGPT) 8 U/L (14-59) < 6 U/L (14-59) Alkaline Phosphatase 96 U/L (46-116) 78 U/L (46-116) Total Protein 4.5 g/dL (6.4-8.2) 4.4 g/dL (6.4-8.2) Albumin 1.5 g/dL (3.4-5.0) 1.4 g/dL (3.4-5.0) Albumin/Globulin Ratio 0.5 (1.0-1.7) 0.5 (1.0-1.7) Laboratory Tests Test 11/03/20 12:25 White Blood Count 0.4 x10^3/uL (4.0-11.0) Red Blood Count 2.60 x10^6/uL (3.50-5.40) Hemoglobin 7.7 g/dL (12.0-15.5) Hematocrit 23.5 % (36.0-47.0) Mean Corpuscular Volume 91 fL (79-100) Mean Corpuscular Hemoglobin 30 pg (25-35) Mean Corpuscular Hemoglobin Concent 33 g/dL (31-37) Red Cell Distribution Width 17.2 % (11.5-14.5) Platelet Count 6 x10^3/uL (140-400) Neutrophils (%) (Auto) 14 % (31-73) Lymphocytes (%) (Auto) 65 % (24-48) Monocytes (%) (Auto) 21 % (0-9) Eosinophils (%) (Auto) 0 % (0-3) Basophils (%) (Auto) 0 % (0-3) Neutrophils # (Auto) 0.1 x10^3/uL (1.8-7.7) Lymphocytes # (Auto) 0.2 x10^3/uL (1.0-4.8) Monocytes # (Auto) 0.1 x10^3/uL (0.0-1.1) Eosinophils # (Auto) 0.0 x10^3/uL (0.0-0.7) Basophils # (Auto) 0.0 x10^3/uL (0.0-0.2) Sodium Level 150 mmol/L (136-145) Potassium Level 4.0 mmol/L (3.5-5.1) Chloride Level 117 mmol/L (98-107) Carbon Dioxide Level 25 mmol/L (21-32) Anion Gap 8 (6-14) Blood Urea Nitrogen 31 mg/dL (7-20) Creatinine 0.9 mg/dL (0.6-1.0) Estimated GFR (Cockcroft-Gault) 72.4 BUN/Creatinine Ratio 34 (6-20) Glucose Level 90 mg/dL (70-99) Calcium Level 8.0 mg/dL (8.5-10.1) Total Bilirubin 0.4 mg/dL (0.2-1.0) Aspartate Amino Transf (AST/SGOT) 8 U/L (15-37) Alanine Aminotransferase (ALT/SGPT) < 6 U/L (14-59) Alkaline Phosphatase 78 U/L (46-116) Total Protein 4.4 g/dL (6.4-8.2) Albumin 1.4 g/dL (3.4-5.0) Albumin/Globulin Ratio 0.5 (1.0-1.7) Medications Active Scripts Medications Dose Route/Sig Max Daily Dose Days Date Category Ibuprofen 600 Mg Tablet 600 Mg PO PRN Q6HRS PRN 10/13/20 Reported Prednisone (Prednisone) 10 Mg Tablet 30 Mg PO DAILY 10 10/05/20 Rx Amlodipine Besylate 5 Mg Tablet 5 Mg PO DAILY 30 10/05/20 Rx Namenda (Memantine Hcl) 10 Mg Tablet 10 Mg PO BID 09/24/20 Reported Meclizine Hcl 25 Mg Tablet 1 Tab PO BID 09/24/20 Reported Allopurinol 300 Mg Tablet 1 Tab PO DAILY 09/24/20 Reported Gabapentin 300 Mg Capsule 100 Mg PO DAILY 09/24/20 Reported Hydrocodone-Apap 5-325 (Hydrocodone Bit/Acetaminophen) 1 Tab Tablet 1 Tab PO PRN Q6HRS PRN 12/11/18 Reported Tylenol (Acetaminophen) 325 Mg Tablet 500 Mg PO PRN 08/08/18 Reported Sodium Bicarbonate 650 Mg Tablet 1 Tab PO DAILY 08/08/18 Reported Metoprolol Succinate ( Xl ) (Metoprolol Succinate) 25 Mg Tab.er.24h 1 Tab PO DAILY 08/08/18 Reported Mucinex (Guaifenesin) 600 Mg Tablet.er 1 Tab PO BID 08/08/18 Reported [Pantoprazole] 40 MG Tablet.dr 40 Mg PO DAILYAC 30 07/18/18 Rx Daliresp (Roflumilast) 500 Mcg Tablet 500 Mcg PO DAILY 06/16/17 Reported Nitrostat (Nitroglycerin) 0.4 Mg Tab.subl 0.4 Mg SL PRN Q5MIN PRN 06/02/16 Rx Aspirin Ec (Aspirin) 81 Mg Tablet. 81 Mg PO DAILYWBKFT 06/02/16 Rx Duoneb 0.5-3(2.5) Mg/3 Ml (Albuterol/Ipratropium) 3 Ml Ampul.neb 3 Ml NEB TID 05/31/16 Reported Impression . IMPRESSION: 1. Acute hypoxic respiratory failure secondary to underlying chronic obstructive pulmonary disease and neutropenic fever. Cannot exclude the possibility of pneumonia, although chest x-ray shows only minimal blunting of the right costophrenic angle. 2. Neutropenic fever, status post chemo. 3. Underlying chronic obstructive pulmonary disease. 4. Extensive small cell lung cancer, treated with palliative chemo with etoposide, atezolizumab as well as carboplatin. At this point, not seeing any acute lung injury from atezolizumab. 5. Underlying dementia. 6. Diarrhea with weakness and prerenal azotemia. Plan . Updated 11/04/20 Continue supplemental oxygen, wean to keep sats above 92% No further fever Follow Oncology recs-- Monitor WBC Continue PPN for nutritional support Pt. is now a DNR Social work for DC planning. likely skill care , DNR DVT/GI PPX D/W RN Updated 11/02/20 Continue supplemental oxygen, pt. is on venti-mask, transition to NC oxygen and wean to keep sats above 92% No further fever Follow Oncology recs-- Monitor WBC Continue PPN for nutritional support Pt. is now a DNR Social work for DC planning, pt. family is wanting to take pt. home on hospice DVT/GI PPX D/W RN Updated 11/03/20 Continue supplemental oxygen, wean to keep sats above 92% No further fever Follow Oncology recs-- Monitor WBC Continue PPN for nutritional support Pt. is now a DNR Social work for DC planning, pt. family is wanting to take pt. home on hospice DVT/GI PPX D/W RN Updated 11/02/20 Continue supplemental oxygen, pt. is on venti-mask, transition to NC oxygen and wean to keep sats above 92% No further fever Follow Oncology recs-- Monitor WBC Continue PPN for nutritional support Pt. is now a DNR Social work for DC planning, pt. family is wanting to take pt. home on hospice DVT/GI PPX D/W RN 11/01/20RECOMMENDATIONS: 1. I have discussed with the patient's nurse that BiPAP can come off. She can be placed on a simple mask. 2. Continue empiric antibiotics. She has no further fever. 3. Monitor white cell count, platelets and hemoglobin. 4. Follow Infectious Disease recommendations. 5. I have spoken to the nursing staff. The daughter is aware of her clinical condition and is in the process of making decisions about her code status. 6. We will continue supportive care. 7. We will follow along with you. FLY BOSTON MD Nov 04, 2020 09:22
[2020-11-04 11:01] VITALS: BP 120/60
--- NOTE | 2020-11-04 13:23 | NUR ---
SW following. Discussed with RN, pt from home with family. Initial plan was hospice, but per oncology recommendations family decided to wait, and now are wanting aggressive care. SW met with pt to discuss pt wishes - RN advised pt can nod or shake head to answer sometimes. Pt is practically non verbal and did not shake or nod head during SW interaction. FINN left voicemail for pt's daughter, Shabana to discuss discharge planning and goals of care for the patient. FINN will continue to follow. Addendum: 11/04/20 at 1524 by DELILAH BRISENO FINN spoke with pt's daughter, Shabana - she does not want to explore hospice at this time. Shabana would like for pt to return home at discharge with [facility]. Updates faxed to [facility].
[2020-11-04 15:19] VITALS: BP 118/56
--- NOTE | 2020-11-04 16:17 | NUR ---
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 No other wounds noted upon assessment. Pt moaning when turning, attempted to provide oral care during visit but pt refusing. Treatment Recommendations/Plan: Cleanse all wounds with saline or wound wash and pat dry. Coccyx and right ischium: apply calazime cream bid and prn, opting for cream as pt has episodes of stool incontinence that disturb other dressing choices. Education provided: explained the need to turn q2h but pt is not verbalizing understanding. Offloading surface/device: purple wedge, heel-medix boots to bilateral heels for prevention, P500 bed Recommended Referrals/Tests: n/a Discharge Recommendations for dressings: same as above
[2020-11-04 19:00] VITALS: BP 120/60
[2020-11-04] MEDS: diphenhydrAMINE 50 MG/ML VIAL IVP PRN (21:13)
[2020-11-04] MEDS: FILGRASTIM 480 MCG/1.6 ML SQ SCH (22:28)
[2020-11-04] MEDS: LIDO:MAALOX:BENADRYL 1:1:1 180 ML BOTTLE. PO PRN (22:34)
[2020-11-04 22:52] VITALS: BP 123/65
[2020-11-05] VITALS (10 sets, daily range): BP systolic 107–129; BP diastolic 51–66
[2020-11-05] MEDS: METOPROLOL IV PUSH 5 MG/5 ML VIAL. IVP SCH ×4 (00:17→18:18)
--- NOTE | 2020-11-05 00:56 | NUR ---
Patient having difficulty coughing up/clearing secretions, but is able to clear throat on occasion, did oral care to lips only, as she clinched her mouth, eye drops placed in both eyes, she did allow this sports book writer to administer the drops, continuing to monitor Ms Roach...
--- NOTE | 2020-11-05 01:26 | PN ---
DATE: 11/04/2020 DAILY PROGRESS NOTE LOCATION: She is in room #652. SUBJECTIVE: This 85-year-old female remains hospitalized with multiple ongoing issues. She has had neutropenic fever from ongoing chemotherapy for small cell carcinoma of the lung. She continues to be profoundly weak. She is daily less encephalopathic and more interactive, but no speaking still at this point in time. Diarrhea on admission has improved. She is back to 3 liters per nasal cannula oxygen and with good sats. OBJECTIVE: VITAL SIGNS: Stable. She is afebrile. GENERAL: She is daily a little bit more awake and alert. CHEST: Decreased breath sounds. HEART: Tachycardic. ABDOMEN: Benign. LABS: Available today. White count was up to 400 yesterday, but platelets have dropped to 6. Oncology is dealing with the same. IMPRESSION: 1. Small cell carcinoma with chemotherapy, pancytopenia related to the same. 2. Weakness, encephalopathy. 3. Acute respiratory insufficiency, improved. 4. Diarrhea, improved. 5. Reactive tachycardia. 6. Dysphagia with mucositis. PLAN: Continue supportive care. Await gradual improvement as her bone marrow begins to recover. Follow labs. YAJAIRA/LENNY/MILLER DR: YAJAIRA/korin TID: [id number]
[2020-11-05] MEDS: MORPHINE SULFATE 2 MG/ML INJ. IV PRN ×2 (01:55→18:20)
[2020-11-05] MEDS: AMINO AC 3%/ELECTROLYTE/GLYCER 1,000 ML IV SCH (04:56)
[2020-11-05 06:49] LABS: ALBUMIN 1.6 g/dL (3.4-5.0); ALBUMIN/GLOBULIN RATIO 0.6 (1.0-1.7); ALK PHOS 74 U/L (46-116); ANION GAP 9 (6-14); AST (SGOT) 14 U/L (15-37); BLOOD UREA NITROGEN 42 mg/dL (7-20); BUN/CREATININE RATIO 42 (6-20); CALCIUM 8.1 mg/dL (8.5-10.1); CARBON DIOXIDE 23 mmol/L (21-32); CHLORIDE 117 mmol/L (98-107); GFR 64.1; GLUCOSE 99 mg/dL (70-99); POTASSIUM 5.1 mmol/L (3.5-5.1); SODIUM 149 mmol/L (136-145); TOTAL BILIRUBIN 0.4 mg/dL (0.2-1.0); TOTAL PROTEIN 4.5 g/dL (6.4-8.2)
[2020-11-05 06:50] LABS: ALT (SGPT) < 6 U/L (14-59)
[2020-11-05 06:56] LABS: BASO % 1 % (0-3); EOS % 1 % (0-3); LYMPH # 0.3 x10^3/uL (1.0-4.8); LYMPH % 37 % (24-48); MEAN CORPUSCULAR HEMOGLOBIN 30 pg (25-35); MEAN CORPUSCULAR HGB CONC 33 g/dL (31-37); MEAN CORPUSCULAR VOLUME 91 fL (79-100); MONO % 1 % (0-9); NEUT # 0.4 x10^3/uL (1.8-7.7); NEUT % 61 % (31-73); RED BLOOD COUNT 2.25 x10^6/uL (3.50-5.40); RED CELL DISTRIBUTION WIDTH 17.4 % (11.5-14.5)
[2020-11-05 07:02] LABS: HEMATOCRIT 20.4 % (36.0-47.0); HEMOGLOBIN 6.7 g/dL (12.0-15.5); PLATELET COUNT 15 x10^3/uL (140-400); WHITE BLOOD COUNT 0.7 x10^3/uL (4.0-11.0)
[2020-11-05] MEDS: IPRATRPIUM/ALBUTEROL 0.5/2.5MG 3 ML NEBU. NEB SCH ×3 (07:10→18:03)
[2020-11-05] MEDS: predniSONE 10 MG TABLET PO SCH (09:00)
[2020-11-05] MEDS: SODIUM BICARBONATE 650 MG TABLET. PO SCH (09:00)
--- NOTE | 2020-11-05 09:13 | PDOC ---
PULMONARY PROGRESS NOTES DATE: 11/05/20 TIME: 09:08 Subjective Pt. remains on 3 liters NC anemia on labs today remains lethargic Vitals Vital Signs Date Time Temp Pulse Resp B/P (MAP) Pulse Ox O2 Delivery O2 Flow Rate FiO2 11/05/20 07:13 97 Nasal Cannula 3.0 11/05/20 07:00 97.8 110 24 117/58 (77) 97.8 General: Lethargic Lungs: Clear Cardiovascular: S1, S2 Abdomen: Soft, Non-tender Extremities: Other Skin: Warm, Dry Labs Laboratory Tests Test 11/03/20 12:25 11/05/20 06:15 White Blood Count 0.4 x10^3/uL (4.0-11.0) 0.7 x10^3/uL (4.0-11.0) Red Blood Count 2.60 x10^6/uL (3.50-5.40) 2.25 x10^6/uL (3.50-5.40) Hemoglobin 7.7 g/dL (12.0-15.5) 6.7 g/dL (12.0-15.5) Hematocrit 23.5 % (36.0-47.0) 20.4 % (36.0-47.0) Mean Corpuscular Volume 91 fL (79-100) 91 fL (79-100) Mean Corpuscular Hemoglobin 30 pg (25-35) 30 pg (25-35) Mean Corpuscular Hemoglobin Concent 33 g/dL (31-37) 33 g/dL (31-37) Red Cell Distribution Width 17.2 % (11.5-14.5) 17.4 % (11.5-14.5) Platelet Count 6 x10^3/uL (140-400) 15 x10^3/uL (140-400) Neutrophils (%) (Auto) 14 % (31-73) 61 % (31-73) Lymphocytes (%) (Auto) 65 % (24-48) 37 % (24-48) Monocytes (%) (Auto) 21 % (0-9) 1 % (0-9) Eosinophils (%) (Auto) 0 % (0-3) 1 % (0-3) Basophils (%) (Auto) 0 % (0-3) 1 % (0-3) Neutrophils # (Auto) 0.1 x10^3/uL (1.8-7.7) 0.4 x10^3/uL (1.8-7.7) Lymphocytes # (Auto) 0.2 x10^3/uL (1.0-4.8) 0.3 x10^3/uL (1.0-4.8) Monocytes # (Auto) 0.1 x10^3/uL (0.0-1.1) 0.0 x10^3/uL (0.0-1.1) Eosinophils # (Auto) 0.0 x10^3/uL (0.0-0.7) 0.0 x10^3/uL (0.0-0.7) Basophils # (Auto) 0.0 x10^3/uL (0.0-0.2) 0.0 x10^3/uL (0.0-0.2) Sodium Level 150 mmol/L (136-145) 149 mmol/L (136-145) Potassium Level 4.0 mmol/L (3.5-5.1) 5.1 mmol/L (3.5-5.1) Chloride Level 117 mmol/L (98-107) 117 mmol/L (98-107) Carbon Dioxide Level 25 mmol/L (21-32) 23 mmol/L (21-32) Anion Gap 8 (6-14) 9 (6-14) Blood Urea Nitrogen 31 mg/dL (7-20) 42 mg/dL (7-20) Creatinine 0.9 mg/dL (0.6-1.0) 1.0 mg/dL (0.6-1.0) Estimated GFR (Cockcroft-Gault) 72.4 64.1 BUN/Creatinine Ratio 34 (6-20) 42 (6-20) Glucose Level 90 mg/dL (70-99) 99 mg/dL (70-99) Calcium Level 8.0 mg/dL (8.5-10.1) 8.1 mg/dL (8.5-10.1) Total Bilirubin 0.4 mg/dL (0.2-1.0) 0.4 mg/dL (0.2-1.0) Aspartate Amino Transf (AST/SGOT) 8 U/L (15-37) 14 U/L (15-37) Alanine Aminotransferase (ALT/SGPT) < 6 U/L (14-59) < 6 U/L (14-59) Alkaline Phosphatase 78 U/L (46-116) 74 U/L (46-116) Total Protein 4.4 g/dL (6.4-8.2) 4.5 g/dL (6.4-8.2) Albumin 1.4 g/dL (3.4-5.0) 1.6 g/dL (3.4-5.0) Albumin/Globulin Ratio 0.5 (1.0-1.7) 0.6 (1.0-1.7) Laboratory Tests Test 11/05/20 06:15 White Blood Count 0.7 x10^3/uL (4.0-11.0) Red Blood Count 2.25 x10^6/uL (3.50-5.40) Hemoglobin 6.7 g/dL (12.0-15.5) Hematocrit 20.4 % (36.0-47.0) Mean Corpuscular Volume 91 fL (79-100) Mean Corpuscular Hemoglobin 30 pg (25-35) Mean Corpuscular Hemoglobin Concent 33 g/dL (31-37) Red Cell Distribution Width 17.4 % (11.5-14.5) Platelet Count 15 x10^3/uL (140-400) Neutrophils (%) (Auto) 61 % (31-73) Lymphocytes (%) (Auto) 37 % (24-48) Monocytes (%) (Auto) 1 % (0-9) Eosinophils (%) (Auto) 1 % (0-3) Basophils (%) (Auto) 1 % (0-3) Neutrophils # (Auto) 0.4 x10^3/uL (1.8-7.7) Lymphocytes # (Auto) 0.3 x10^3/uL (1.0-4.8) Monocytes # (Auto) 0.0 x10^3/uL (0.0-1.1) Eosinophils # (Auto) 0.0 x10^3/uL (0.0-0.7) Basophils # (Auto) 0.0 x10^3/uL (0.0-0.2) Sodium Level 149 mmol/L (136-145) Potassium Level 5.1 mmol/L (3.5-5.1) Chloride Level 117 mmol/L (98-107) Carbon Dioxide Level 23 mmol/L (21-32) Anion Gap 9 (6-14) Blood Urea Nitrogen 42 mg/dL (7-20) Creatinine 1.0 mg/dL (0.6-1.0) Estimated GFR (Cockcroft-Gault) 64.1 BUN/Creatinine Ratio 42 (6-20) Glucose Level 99 mg/dL (70-99) Calcium Level 8.1 mg/dL (8.5-10.1) Total Bilirubin 0.4 mg/dL (0.2-1.0) Aspartate Amino Transf (AST/SGOT) 14 U/L (15-37) Alanine Aminotransferase (ALT/SGPT) < 6 U/L (14-59) Alkaline Phosphatase 74 U/L (46-116) Total Protein 4.5 g/dL (6.4-8.2) Albumin 1.6 g/dL (3.4-5.0) Albumin/Globulin Ratio 0.6 (1.0-1.7) Medications Active Scripts Medications Dose Route/Sig Max Daily Dose Days Date Category Ibuprofen 600 Mg Tablet 600 Mg PO PRN Q6HRS PRN 10/13/20 Reported Prednisone (Prednisone) 10 Mg Tablet 30 Mg PO DAILY 10 10/05/20 Rx Amlodipine Besylate 5 Mg Tablet 5 Mg PO DAILY 30 10/05/20 Rx Namenda (Memantine Hcl) 10 Mg Tablet 10 Mg PO BID 09/24/20 Reported Meclizine Hcl 25 Mg Tablet 1 Tab PO BID 09/24/20 Reported Allopurinol 300 Mg Tablet 1 Tab PO DAILY 09/24/20 Reported Gabapentin 300 Mg Capsule 100 Mg PO DAILY 09/24/20 Reported Hydrocodone-Apap 5-325 (Hydrocodone Bit/Acetaminophen) 1 Tab Tablet 1 Tab PO PRN Q6HRS PRN 12/11/18 Reported Tylenol (Acetaminophen) 325 Mg Tablet 500 Mg PO PRN 08/08/18 Reported Sodium Bicarbonate 650 Mg Tablet 1 Tab PO DAILY 08/08/18 Reported Metoprolol Succinate ( Xl ) (Metoprolol Succinate) 25 Mg Tab.er.24h 1 Tab PO DAILY 08/08/18 Reported Mucinex (Guaifenesin) 600 Mg Tablet.er 1 Tab PO BID 08/08/18 Reported [Pantoprazole] 40 MG Tablet. 40 Mg PO DAILYAC 30 07/18/18 Rx Daliresp (Roflumilast) 500 Mcg Tablet 500 Mcg PO DAILY 06/16/17 Reported Nitrostat (Nitroglycerin) 0.4 Mg Tab.subl 0.4 Mg SL PRN Q5MIN PRN 06/02/16 Rx Aspirin Ec (Aspirin) 81 Mg Tablet. 81 Mg PO DAILYWBKFT 06/02/16 Rx Duoneb 0.5-3(2.5) Mg/3 Ml (Albuterol/Ipratropium) 3 Ml Ampul.neb 3 Ml NEB TID 05/31/16 Reported Impression . IMPRESSION: 1. Acute hypoxic respiratory failure secondary to underlying chronic obstructive pulmonary disease and neutropenic fever. Cannot exclude the possibility of pneumonia, although chest x-ray shows only minimal blunting of the right costophrenic angle.--improved 2. Neutropenic fever, status post chemo.--resolved 3. Underlying chronic obstructive pulmonary disease. 4. Extensive small cell lung cancer, treated with palliative chemo with etoposide, atezolizumab as well as carboplatin. At this point, not seeing any acute lung injury from atezolizumab. 5. Underlying dementia. 6. Diarrhea with weakness and prerenal azotemia. 7. Pancytopenia including thrombocytopenia Plan . Updated 11/05/20 Continue supplemental oxygen, wean to keep sats above 92%, currently on 3 liters NC Follow Oncology recs-- Monitor WBC on neupogen Monitor HGB, transfusion per oncology and PCP Continue PPN for nutritional support Social work for DC planning: Family is wanting to take the pt. home on home health, does not appear to be an obtainable goal at this time, poor prognosis DVT/GI PPX D/W RN Pt. is DNR Updated 11/04/20 Continue supplemental oxygen, wean to keep sats above 92% No further fever Follow Oncology recs-- Monitor WBC Continue PPN for nutritional support Pt. is now a DNR Social work for DC planning. likely skill care , DNR DVT/GI PPX D/W RN Updated 11/03/20 Continue supplemental oxygen, pt. is on venti-mask, transition to NC oxygen and wean to keep sats above 92% No further fever Follow Oncology recs-- Monitor WBC Continue PPN for nutritional support Pt. is now a DNR Social work for DC planning, pt. family is wanting to take pt. home on hospice DVT/GI PPX D/W RN FLY BOSTON MD Nov 05, 2020 09:13
[2020-11-05] MEDS: PANTOPRAZOLE IV PUSH 40 MG VIAL. IVP SCH (09:38)
[2020-11-05] MEDS: NYSTATIN 100,000 UNITS/ML 5 ML ORAL.SUSP. SWSW SCH ×4 (09:38→23:02)
--- NOTE | 2020-11-05 10:23 | NUR ---
SW following. Discussed with RN, pt from home, uses oxygen at home, NPO. Plan is for pt to discharge home with daughter and [facility] when medically ready. RN notified. SW will continue to follow.
[2020-11-05 12:00] LABS: % LYMPHS 45 % (24-48); % MONOS 3 % (0-10); % SEGS 52 % (35-66); MICROCYTOSIS SLIGHT; PLT ESTIMATE DECREASED (ADEQUATE)
[2020-11-05 12:01] LABS: OVALOCYTES OCC; TEAR DROP CELLS OCC
--- NOTE | 2020-11-05 13:06 | NUR ---
PATIENT RESTING IN BED AT THIS TIME ON HER LEFT SIDE, CONTINUES TO TRACK WITH HER EYES BUT NO VERBAL RESPONSES, BLOOD TRANSFUSION STARTED AT THIS TIME, WILL MONITOR.
[2020-11-05] MEDS: LEVOFLOXACIN 750 MG IV SCH (18:20)
[2020-11-05] MEDS: FILGRASTIM 480 MCG/1.6 ML SQ SCH (23:02)
[2020-11-05] MEDS: LIDO:MAALOX:BENADRYL 1:1:1 180 ML BOTTLE. PO PRN (23:02)
[2020-11-05] MEDS: diphenhydrAMINE 50 MG/ML VIAL IVP PRN (23:03)
[2020-11-05] MEDS: MORPHINE SULFATE 4 MG/ML INJ. IV PRN (23:03)
[2020-11-06] MEDS: METOPROLOL IV PUSH 5 MG/5 ML VIAL. IVP SCH ×2 (00:47→06:13)
[2020-11-06] MEDS: AMINO AC 3%/ELECTROLYTE/GLYCER 1,000 ML IV SCH ×2 (00:57→06:45)
[2020-11-06] MEDS: MORPHINE SULFATE 4 MG/ML INJ. IV PRN ×3 (02:42→12:22)
[2020-11-06 03:00] VITALS: BP 117/56
--- NOTE | 2020-11-06 05:33 | PN ---
DATE: 11/05/2020 DAILY PROGRESS NOTE LOCATION: She is in room #652. SUBJECTIVE: This 85-year-old female remains hospitalized with neutropenic fever, pancytopenia due to chemotherapy for her small cell carcinoma of the lung. She remains weak. She remains nonverbal, but is getting gradually, though slowly more awake, alert and interactive with shaking her head ____. She is back to her baseline 3 liters per nasal cannula oxygen with good sats. OBJECTIVE: VITAL SIGNS: Stable. She did have a temperature this morning about 100.3. GENERAL: Just a little bit more awake and alert and interactive on a daily basis. CHEST: Decreased breath sounds. HEART: Sinus tachycardia at about 115. ABDOMEN: Benign. LABORATORY DATA: Blood counts this morning show a white count up to 700, platelets up to 15,000, hemoglobin is down to 6.7. Transfusion has been ordered by heme/onc. IMPRESSION: 1. Small cell carcinoma with chemotherapy, pancytopenia related to the same. 2. Anemia with transfusion today. 3. Weakness and encephalopathy. 4. Acute respiratory insufficiency, improved. 5. Diarrhea, improved. 6. Reactive tachycardia. 7. Dysphagia with mucositis. PLAN: Continue supportive care. Await return in marrow function and hopefully we will see improvement in her overall wellbeing. YAJAIRA/KEVIN/MILLER DR: YAJAIRA/korin TID: [id number]
[2020-11-06 07:00] VITALS: BP 106/55
[2020-11-06] MEDS: IPRATRPIUM/ALBUTEROL 0.5/2.5MG 3 ML NEBU. NEB SCH ×2 (07:15→11:55)
--- NOTE | 2020-11-06 07:32 | NUR ---
Patient is given morphine through the night, swabbed her lips with nystatin and magic mouthwash, mixed, and periodically administered to her through the night in small amounts, Did suction her at approximately 0620, some pinkish-red results, as pt remains unable to clear her throat completely
[2020-11-06] MEDS: SODIUM BICARBONATE 650 MG TABLET. PO SCH (07:43)
[2020-11-06] MEDS: predniSONE 10 MG TABLET PO SCH (07:43)
--- NOTE | 2020-11-06 07:46 | PDOC ---
PULMONARY PROGRESS NOTES DATE: 11/06/20 TIME: 07:46 Subjective Pt. remains on 3 liters NC lethargic Vitals Vital Signs Date Time Temp Pulse Resp B/P (MAP) Pulse Ox O2 Delivery O2 Flow Rate FiO2 11/06/20 07:16 100 Nasal Cannula 3.0 11/06/20 06:45 16 11/06/20 06:13 115 117/56 11/06/20 03:00 99.6 99.6 General: Lethargic Lungs: Crackles Cardiovascular: S1, S2 Abdomen: Soft, Non-tender Extremities: Other Skin: Warm, Dry Labs Laboratory Tests Test 11/05/20 06:15 White Blood Count 0.7 x10^3/uL (4.0-11.0) Red Blood Count 2.25 x10^6/uL (3.50-5.40) Hemoglobin 6.7 g/dL (12.0-15.5) Hematocrit 20.4 % (36.0-47.0) Mean Corpuscular Volume 91 fL (79-100) Mean Corpuscular Hemoglobin 30 pg (25-35) Mean Corpuscular Hemoglobin Concent 33 g/dL (31-37) Red Cell Distribution Width 17.4 % (11.5-14.5) Platelet Count 15 x10^3/uL (140-400) Neutrophils (%) (Auto) 61 % (31-73) Lymphocytes (%) (Auto) 37 % (24-48) Monocytes (%) (Auto) 1 % (0-9) Eosinophils (%) (Auto) 1 % (0-3) Basophils (%) (Auto) 1 % (0-3) Neutrophils # (Auto) 0.4 x10^3/uL (1.8-7.7) Lymphocytes # (Auto) 0.3 x10^3/uL (1.0-4.8) Monocytes # (Auto) 0.0 x10^3/uL (0.0-1.1) Eosinophils # (Auto) 0.0 x10^3/uL (0.0-0.7) Basophils # (Auto) 0.0 x10^3/uL (0.0-0.2) Segmented Neutrophils % 52 % (35-66) Lymphocytes % 45 % (24-48) Monocytes % 3 % (0-10) Dohle Bodies Many Platelet Estimate Decreased (ADEQUATE) Microcytosis Slight Tear Drop Cells Occ Ovalocytes Occ Sodium Level 149 mmol/L (136-145) Potassium Level 5.1 mmol/L (3.5-5.1) Chloride Level 117 mmol/L (98-107) Carbon Dioxide Level 23 mmol/L (21-32) Anion Gap 9 (6-14) Blood Urea Nitrogen 42 mg/dL (7-20) Creatinine 1.0 mg/dL (0.6-1.0) Estimated GFR (Cockcroft-Gault) 64.1 BUN/Creatinine Ratio 42 (6-20) Glucose Level 99 mg/dL (70-99) Calcium Level 8.1 mg/dL (8.5-10.1) Total Bilirubin 0.4 mg/dL (0.2-1.0) Aspartate Amino Transf (AST/SGOT) 14 U/L (15-37) Alanine Aminotransferase (ALT/SGPT) < 6 U/L (14-59) Alkaline Phosphatase 74 U/L (46-116) Total Protein 4.5 g/dL (6.4-8.2) Albumin 1.6 g/dL (3.4-5.0) Albumin/Globulin Ratio 0.6 (1.0-1.7) Medications Active Scripts Medications Dose Route/Sig Max Daily Dose Days Date Category Ibuprofen 600 Mg Tablet 600 Mg PO PRN Q6HRS PRN 10/13/20 Reported Prednisone (Prednisone) 10 Mg Tablet 30 Mg PO DAILY 10 10/05/20 Rx Amlodipine Besylate 5 Mg Tablet 5 Mg PO DAILY 30 10/05/20 Rx Namenda (Memantine Hcl) 10 Mg Tablet 10 Mg PO BID 09/24/20 Reported Meclizine Hcl 25 Mg Tablet 1 Tab PO BID 09/24/20 Reported Allopurinol 300 Mg Tablet 1 Tab PO DAILY 09/24/20 Reported Gabapentin 300 Mg Capsule 100 Mg PO DAILY 09/24/20 Reported Hydrocodone-Apap 5-325 (Hydrocodone Bit/Acetaminophen) 1 Tab Tablet 1 Tab PO PRN Q6HRS PRN 12/11/18 Reported Tylenol (Acetaminophen) 325 Mg Tablet 500 Mg PO PRN 08/08/18 Reported Sodium Bicarbonate 650 Mg Tablet 1 Tab PO DAILY 08/08/18 Reported Metoprolol Succinate ( Xl ) (Metoprolol Succinate) 25 Mg Tab.er.24h 1 Tab PO DAILY 08/08/18 Reported Mucinex (Guaifenesin) 600 Mg Tablet.er 1 Tab PO BID 08/08/18 Reported [Pantoprazole] 40 MG Tablet. 40 Mg PO DAILYAC 30 07/18/18 Rx Daliresp (Roflumilast) 500 Mcg Tablet 500 Mcg PO DAILY 06/16/17 Reported Nitrostat (Nitroglycerin) 0.4 Mg Tab.subl 0.4 Mg SL PRN Q5MIN PRN 06/02/16 Rx Aspirin Ec (Aspirin) 81 Mg Tablet. 81 Mg PO DAILYWBKFT 06/02/16 Rx Duoneb 0.5-3(2.5) Mg/3 Ml (Albuterol/Ipratropium) 3 Ml Ampul.neb 3 Ml NEB TID 05/31/16 Reported Impression . IMPRESSION: 1. Acute hypoxic respiratory failure secondary to underlying chronic obstructive pulmonary disease and neutropenic fever. Cannot exclude the possibility of pneumonia, although chest x-ray shows only minimal blunting of the right costophrenic angle.--improved 2. Neutropenic fever, status post chemo.--resolved 3. Underlying chronic obstructive pulmonary disease. 4. Extensive small cell lung cancer, treated with palliative chemo with etoposide, atezolizumab as well as carboplatin. At this point, not seeing any acute lung injury from atezolizumab. 5. Underlying dementia. 6. Diarrhea with weakness and prerenal azotemia. 7. Pancytopenia including thrombocytopenia Plan . Updated 11/06/20 Continue supplemental oxygen, wean to keep sats above 92%, currently on 3 liters NC Follow Oncology recs-- Monitor WBC on neupogen Monitor HGB, transfusion per oncology and PCP Continue PPN for nutritional support Social work for DC planning: Family is wanting to take the pt. home on home health, does not appear to be an obtainable goal at this time, poor prognosis DVT/GI PPX D/W RN Pt. is DNR prognosis poor Updated 11/04/20 Continue supplemental oxygen, wean to keep sats above 92% No further fever Follow Oncology recs-- Monitor WBC Continue PPN for nutritional support Pt. is now a DNR Social work for DC planning. likely skill care , DNR DVT/GI PPX D/W RN Updated 11/03/20 Continue supplemental oxygen, pt. is on venti-mask, transition to [place] oxygen and wean to keep sats above 92% No further fever Follow Oncology recs-- Monitor WBC Continue PPN for nutritional support Pt. is now a DNR Social work for DC planning, pt. family is wanting to take pt. home on hospice DVT/GI PPX D/W YSABEL RAM MD Nov 06, 2020 07:46
[2020-11-06] MEDS: PANTOPRAZOLE IV PUSH 40 MG VIAL. IVP SCH (08:17)
[2020-11-06] MEDS: NYSTATIN 100,000 UNITS/ML 5 ML ORAL.SUSP. SWSW SCH ×2 (08:18→12:22)
[2020-11-06 11:00] VITALS: BP 95/52
--- NOTE | 2020-11-06 11:51 | PDOC ---
Provider Note Date of Service: DATE: 11/06/20 TIME: 11:50 Provider Note febrile, low bp, npo/on procal- still pancyto, ms iv prn/comfort care, add scop patch re secretions, terminal now Justifications for Admission Other Justification LAVONNE HENRIQUEZ MD Nov 06, 2020 11:51
[2020-11-06] MEDS ORDERED: SCOPOLAMINE 1.5MG PATCH. TD SCH (12:00)
--- NOTE | 2020-11-06 13:15 | PDOC ---
PROGRESS NOTES Date of Service DATE: 11/06/20 TIME: 13:05 Subjective Subjective Lethargic. Spiked a fever this AM with temp of 100.5 Objective Objective Vital Signs Date Time Temp Pulse Resp B/P (MAP) Pulse Ox O2 Delivery O2 Flow Rate FiO2 11/06/20 12:22 18 Nasal Cannula 3.0 11/06/20 11:55 100 11/06/20 11:00 100.9 113 95/52 (66) 100.9 Intake and Output 11/06/20 07:00 Intake Total 2620 ml Balance 2620 ml Intake Oral 0 ml IV Total 1950 ml Blood Product IV Normal Saline Flush 670 ml # Voids 1 Physical Exam Physical Exam VS reviewed. Exam not performed today as visit was completed by telemed Assessment Assessment Extensive stage small cell lung cancer s/p cycle 1 carbo/etoposide/atezolizumab on 10/19/2020 Pancytopenia secondary to antineoplastic therapy Febrile neutropenia Diarrhea Community-acquired pneumonia, improved Severe neutropenia Epigastric abdominal pain and associated dysphagia/odynophagia Mucositis, grade 3 Plan Plan of Care -Check CBC and CMP -Given fever, will switch abx to Cefepime, renally dosed. DC Levaquin and Flagyl -Continue filgrastim 480 mcg today -Check CXR, UA, blood culturesx2 -Transfuse as needed to maintain Hb over 7 and platelets above 20 -Continue nystatin swish and swallow as empiric therapy for esophageal candidiasis -Reviewed CT abdomen and pelvis. It does not explain her abdominal pain. Recommended continued aggressive supportive care since I anticipate clinical improvement from resolution of chemotherapy side effects in the next 3 to 4 days -Continue Magic mouthwash as needed before meals for mucositis from chemotherapy -Recommend salt water mouth rinses for oral care -Rest per Dr. Brenner -Continue supportive care at least until count recovery. Can readdress clinical and functional status at the time and discuss goals of care if a significant improvement is not noted Comment Review of Relevant I have reviewed the following items maria (where applicable) has been applied. Labs Laboratory Tests Test 11/05/20 06:15 White Blood Count 0.7 x10^3/uL (4.0-11.0) Red Blood Count 2.25 x10^6/uL (3.50-5.40) Hemoglobin 6.7 g/dL (12.0-15.5) Hematocrit 20.4 % (36.0-47.0) Mean Corpuscular Volume 91 fL (79-100) Mean Corpuscular Hemoglobin 30 pg (25-35) Mean Corpuscular Hemoglobin Concent 33 g/dL (31-37) Red Cell Distribution Width 17.4 % (11.5-14.5) Platelet Count 15 x10^3/uL (140-400) Neutrophils (%) (Auto) 61 % (31-73) Lymphocytes (%) (Auto) 37 % (24-48) Monocytes (%) (Auto) 1 % (0-9) Eosinophils (%) (Auto) 1 % (0-3) Basophils (%) (Auto) 1 % (0-3) Neutrophils # (Auto) 0.4 x10^3/uL (1.8-7.7) Lymphocytes # (Auto) 0.3 x10^3/uL (1.0-4.8) Monocytes # (Auto) 0.0 x10^3/uL (0.0-1.1) Eosinophils # (Auto) 0.0 x10^3/uL (0.0-0.7) Basophils # (Auto) 0.0 x10^3/uL (0.0-0.2) Segmented Neutrophils % 52 % (35-66) Lymphocytes % 45 % (24-48) Monocytes % 3 % (0-10) Dohle Bodies Many Platelet Estimate Decreased (ADEQUATE) Microcytosis Slight Tear Drop Cells Occ Ovalocytes Occ Sodium Level 149 mmol/L (136-145) Potassium Level 5.1 mmol/L (3.5-5.1) Chloride Level 117 mmol/L (98-107) Carbon Dioxide Level 23 mmol/L (21-32) Anion Gap 9 (6-14) Blood Urea Nitrogen 42 mg/dL (7-20) Creatinine 1.0 mg/dL (0.6-1.0) Estimated GFR (Cockcroft-Gault) 64.1 BUN/Creatinine Ratio 42 (6-20) Glucose Level 99 mg/dL (70-99) Calcium Level 8.1 mg/dL (8.5-10.1) Total Bilirubin 0.4 mg/dL (0.2-1.0) Aspartate Amino Transf (AST/SGOT) 14 U/L (15-37) Alanine Aminotransferase (ALT/SGPT) < 6 U/L (14-59) Alkaline Phosphatase 74 U/L (46-116) Total Protein 4.5 g/dL (6.4-8.2) Albumin 1.6 g/dL (3.4-5.0) Albumin/Globulin Ratio 0.6 (1.0-1.7) Microbiology 10/27/20 Blood Culture - Final, Complete NO GROWTH AFTER 5 DAYS Medications Current Medications Sodium Chloride 1,000 ml @ 1,000 mls/hr 1X ONCE IV Last administered on 10/26/20at 19:51; Start 10/26/20 at 19:30; Stop 10/26/20 at 20:29; Status DC Ondansetron HCl (Zofran) 4 mg 1X ONCE IVP Last administered on 10/26/20at 19:51; Start 10/26/20 at 19:30; Stop 10/26/20 at 19:31; Status DC Magnesium Sulfate 50 ml @ 25 mls/hr 1X ONCE IV Last administered on 10/26/20at 21:40; Start 10/26/20 at 20:30; Stop 10/26/20 at 22:29; Status DC Calcium Gluconate (Calcium Gluconate) 1,000 mg 1X ONCE IVP Last administered on 10/26/20at 21:40; Start 10/26/20 at 20:30; Stop 10/26/20 at 20:33; Status DC Cefepime HCl (Maxipime) 2 gm 1X ONCE IVP Last administered on 10/26/20at 21:41; Start 10/26/20 at 21:15; Stop 10/26/20 at 21:16; Status DC Ondansetron HCl (Zofran) 4 mg PRN Q8HRS PRN IV NAUSEA/VOMITING Last administered on 10/27/20at 13:07; Start 10/26/20 at 21:30; Stop 10/27/20 at 21:29; Status DC Sodium Chloride 1,000 ml @ 75 mls/hr [id number] IV Last administered on 10/27/20at 11:13; Start 10/26/20 at 21:30; Stop 10/27/20 at 21:29; Status DC Acetaminophen (Tylenol) 650 mg PRN Q4HRS PRN PO FEVER > 100.3'F; Start 10/26/20 at 21:30; Stop 10/27/20 at 21:29; Status DC Albuterol/ Ipratropium (Duoneb) 3 ml RTQID NEB ; Start 10/27/20 at 08:00; Stop 10/27/20 at 08:24; Status DC Acetaminophen (Tylenol) 500 mg PRN Q4HRS PO ; Start 10/27/20 at 08:15; Status Cancel Acetaminophen/ Hydrocodone Bitart (Lortab 5/325) 1 tab PRN Q6HRS PRN PO MODERATE TO SEVERE PAIN Last administered on 10/27/20at 19:23; Start 10/27/20 at 08:15 Albuterol/ Ipratropium (Duoneb) 3 ml TID NEB Last administered on 11/06/20at 11:55; Start 10/27/20 at 09:00 Nitroglycerin (Nitrostat) 0.4 mg PRN Q5MIN PRN SL CHEST PAIN; Start 10/27/20 at 08:15 Prednisone (Prednisone) 30 mg DAILY PO Last administered on 10/28/20at 13:06; Start 10/27/20 at 09:00 Sodium Bicarbonate (Sodium Bicarbonate) 650 mg DAILY PO Last administered on 10/28/20at 13:06; Start 10/27/20 at 09:00 Pantoprazole Sodium (Protonix) 40 mg DAILYAC PO Last administered on 10/28/20 13:06; Start 10/27/20 at 09:00; Stop 11/03/20 at 06:20; Status DC Lactobacillus Rhamnosus (Culturelle) 1 cap BID PO Last administered on 10/27/20at 19:23; Start 10/27/20 at 21:00; Stop 11/04/20 at 10:53; Status DC Nystatin (Nystatin Oral Susp) 5 ml [id number] Last administered on 11/06/20at 12:22; Start 10/27/20 at 21:00 Multi-Ingredient Mouthwash/Gargle (Magic Mouthwash) 10 ml PRN QID PRN PO MOUTH PAIN Last administered on 11/05/20at 23:02; Start 10/27/20 at 18:45 Iohexol (Omnipaque 240 Mg/ml) 50 ml 1X ONCE PO Last administered on 10/28/20at 07:00; Start 10/28/20 at 07:00; Stop 10/28/20 at 07:01; Status DC Iohexol (Omnipaque 300 Mg/ml) 60 ml 1X ONCE IV Last administered on 10/28/20at 09:10; Start 10/28/20 at 07:00; Stop 10/28/20 at 07:01; Status DC Info (CONTRAST GIVEN -- Rx MONITORING) 1 each PRN DAILY PRN MC SEE COMMENTS; Start 10/28/20 at 06:45; Stop 10/30/20 at 06:44; Status DC Sodium Chloride 1,000 ml @ 75 mls/hr [id number] IV Last administered on 10/30/20at 10:21; Start 10/28/20 at 09:00; Stop 10/30/20 at 12:07; Status DC Morphine Sulfate (Morphine Sulfate) 2 mg PRN Q2HR PRN IV MODERATE PAIN Last administered on 11/05/20at 18:20; Start 10/28/20 at 09:15 Morphine Sulfate (Morphine Sulfate) 4 mg PRN Q2HR PRN IV SEVERE PAIN Last administered on 11/06/20at 12:22; Start 10/28/20 at 09:15 Metronidazole 100 ml @ 100 mls/hr Q8HRS IV Last administered on 11/06/20at 06:13; Start 10/28/20 at 10:00 Levofloxacin/ Dextrose 750 ml @ 500 mls/hr Q48H IV Last administered on 11/05/20at 18:20; Start 10/28/20 at 17:00 Acetaminophen (Tylenol Supp) 650 mg PRN Q6HRS PRN DE MILD PAIN / TEMP > 100.3'F Last administered on 10/28/20at 21:37; Start 10/28/20 at 21:30 Diphenhydramine HCl (Benadryl) 25 mg PRN QHS PRN IVP SLEEP Last administered on 11/05/20at 23:03; Start 10/28/20 at 21:30 Tbo-Filgrastim (Granix) 480 mcg QHS SQ Last administered on 11/02/20at 21:38; Start 10/30/20 at 21:00; Stop 11/03/20 at 16:37; Status DC Tbo-Filgrastim (Granix) 480 mcg 1X ONCE SQ Last administered on 10/29/20at 09:08; Start 10/29/20 at 09:00; Stop 10/29/20 at 09:01; Status DC Metoprolol Succinate (Toprol Xl) 25 mg DAILY PO ; Start 10/29/20 at 12:15; Stop 10/29/20 at 12:45; Status DC Metoprolol Tartrate (Lopressor Vial) 5 mg Q6HRS IVP Last administered on 11/06/20at 06:13; Start 10/29/20 at 13:00; Stop 11/06/20 at 11:50; Status DC Furosemide (Lasix) 20 mg 1X ONCE IVP Last administered on 10/29/20at 13:05; Start 10/29/20 at 13:30; Stop 10/29/20 at 13:31; Status DC Amino Acids/ Glycerin/ Electrolytes 1,000 ml @ 80 mls/hr [id number] IV Last administered on 11/06/20at 06:45; Start 10/30/20 at 12:15 Furosemide (Lasix) 40 mg 1X ONCE IVP Last administered on 10/31/20at 09:33; Start 10/31/20 at 08:15; Stop 10/31/20 at 08:27; Status DC Pantoprazole Sodium (PROTONIX VIAL for IV PUSH) 40 mg DAILYAC IVP Last administered on 11/06/20at 08:17; Start 11/03/20 at 07:30 Filgrastim (Neupogen) 480 mcg QHS SQ Last administered on 11/03/20at 22:24; Start 11/03/20 at 21:00; Stop 11/04/20 at 21:31; Status DC Glycerin/ Hypromellose/ Polyethylene (Artificial Tears) 1 drop PRN BID PRN OU DRY EYE Last administered on 11/05/20at 00:35; Start 11/03/20 at 18:15 Filgrastim (Neupogen) 480 mcg QHS SQ Last administered on 11/05/20at 23:02; Start 11/04/20 at 21:31 Scopolamine (Transderm-Scop) 1 patch Q3DAYS TD Last administered on 11/06/20at 12:22; Start 11/06/20 at 12:00 Active Scripts Active Prednisone (Prednisone) 10 Mg Tablet 30 Mg PO DAILY 10 Days Amlodipine Besylate 5 Mg Tablet 5 Mg PO DAILY 30 Days [Pantoprazole] 40 MG Tablet. 40 Mg PO DAILYAC 30 Days Nitrostat (Nitroglycerin) 0.4 Mg Tab.subl 0.4 Mg SL PRN Q5MIN PRN Aspirin Ec (Aspirin) 81 Mg Tablet. 81 Mg PO [id number] Reported Ibuprofen 600 Mg Tablet 600 Mg PO PRN Q6HRS PRN Namenda (Memantine Hcl) 10 Mg Tablet 10 Mg PO BID Meclizine Hcl 25 Mg Tablet 1 Tab PO BID Allopurinol 300 Mg Tablet 1 Tab PO DAILY Gabapentin 300 Mg Capsule 100 Mg PO DAILY Hydrocodone-Apap 5-325 (Hydrocodone Bit/Acetaminophen) 1 Tab Tablet 1 Tab PO PRN Q6HRS PRN Tylenol (Acetaminophen) 325 Mg Tablet 500 Mg PO PRN Sodium Bicarbonate 650 Mg Tablet 1 Tab PO DAILY Metoprolol Succinate ( Xl ) (Metoprolol Succinate) 25 Mg Tab.er.24h 1 Tab PO DAILY Mucinex (Guaifenesin) 600 Mg Tablet.er 1 Tab PO BID Daliresp (Roflumilast) 500 Mcg Tablet 500 Mcg PO DAILY Duoneb 0.5-3(2.5) Mg/3 Ml (Albuterol/Ipratropium) 3 Ml Ampul.neb 3 Ml NEB TID Vitals/I & O Vital Sign - Last 24 Hours 11/05/20 11/05/20 11/05/20 11/05/20 13:10 13:18 13:18 13:22 Temp 98.9 98.9 Pulse 119 119 Resp 20 B/P (MAP) 109/53 109/53 O2 Delivery Nasal Cannula O2 Flow Rate 3.0 11/05/20 11/05/20 11/05/20 11/05/20 14:00 15:00 15:00 16:10 Temp 98.2 98.9 98.2 98.2 98.2 98.9 98.2 98.2 Pulse 108 111 108 108 Resp 20 24 20 20 B/P (MAP) 120/60 129/65 (86) 115/56 120/66 Pulse Ox 100 O2 Delivery Nasal Cannula O2 Flow Rate 3.0 11/05/20 11/05/20 11/05/20 11/05/20 18:05 18:18 18:20 19:00 Temp 100.6 100.6 Pulse 108 111 Resp B/P (MAP) 120/66 107/51 (69) Pulse Ox 93 100 O2 Delivery Nasal Cannula Nasal Cannula Nasal Cannula O2 Flow Rate 3.0 3.0 3.0 11/05/20 11/05/20 11/05/20 11/05/20 20:30 23:00 23:03 23:33 Temp 99.7 99.7 Pulse 110 Resp B/P (MAP) 111/58 (75) Pulse Ox 100 O2 Delivery Nasal Cannula Nasal Cannula Nasal Cannula Nasal Cannula O2 Flow Rate 3.0 3.0 11/06/20 11/06/20 11/06/20 11/06/20 00:47 02:42 03:00 03:12 Temp 99.6 99.6 Pulse 120 110 Resp 20 B/P (MAP) 111/58 117/56 (76) Pulse Ox 100 O2 Delivery Nasal Cannula Nasal Cannula Nasal Cannula O2 Flow Rate 3.0 11/06/20 11/06/20 11/06/20 11/06/20 06:13 06:30 06:45 07:00 Temp 99.6 99.6 Pulse 115 105 Resp 16 20 B/P (MAP) 117/56 106/55 (72) Pulse Ox 99 O2 Delivery Nasal Cannula Nasal Cannula Nasal Cannula O2 Flow Rate 3.0 3.5 11/06/20 11/06/20 11/06/20 11/06/20 07:16 08:00 11:00 11:55 Temp 100.9 100.9 Pulse 113 Resp 20 B/P (MAP) 95/52 (66) Pulse Ox 100 95 100 O2 Delivery Nasal Cannula Nasal Cannula Nasal Cannula Nasal Cannula O2 Flow Rate 3.0 3.0 3.0 3.0 11/06/20 12:22 Resp 18 O2 Delivery Nasal Cannula O2 Flow Rate 3.0 Intake and Output0 11/05/20 11/05/20 11/06/20 15:00 23:00 07:00 Intake Total 420 ml 1100 ml 1100 ml Balance 420 ml 1100 ml 1100 ml Justifications for Admission Other Justification Nutrition Consultation Dietary Evaluation: Recommendations by RD: Dietary education by RD, PPN/TPN Comments: NPO/ PPN , when able rec neutropenic diet honor food preferences and offer snacks/ supplements from unit prn REC mvi and vit c per wound protocal family has decided to continue care. Pt with port access for TPN REC TPN for nutrition needs. REC: macronutrients for TPN: 250 g Dextrose, 90 g AA, 30 g lipid to provide ~ 1480 kcal, 90 g protein meeting 75% est kcal needs, 100% est protein needs. Discussed with RN. will monitor Expected Outcomes/Goals: to meet > 75% est nutr needs via nutrition support Malnutrition Findings: Food and Nutrition Intake (Sev: <50% est energy req 5days Weight Status: Overweight BARTOLOME DESIR MD Nov 06, 2020 13:15
[2020-11-06] MEDS ORDERED: CEFEPIME HCL IV Push 2 GM VIAL. IVP SCH (13:30)
[2020-11-06 14:00] LABS: BASO % 0 % (0-3); EOS % 0 % (0-3); LYMPH # 0.3 x10^3/uL (1.0-4.8); LYMPH % 34 % (24-48); MEAN CORPUSCULAR HEMOGLOBIN 29 pg (25-35); MEAN CORPUSCULAR HGB CONC 32 g/dL (31-37); MEAN CORPUSCULAR VOLUME 92 fL (79-100); MONO % 1 % (0-9); NEUT # 0.5 x10^3/uL (1.8-7.7); NEUT % 64 % (31-73); RED BLOOD COUNT 2.71 x10^6/uL (3.50-5.40); RED CELL DISTRIBUTION WIDTH 18.5 % (11.5-14.5)
--- NOTE | 2020-11-06 14:00 | NUR ---
Critical labs called to Dr Jones. I have called the daughter and given her an update re: her mothers status. Pt continues to be congested and staff is able to suction with serina when oral secretions noted. Pt does close her mouth but does not fight the suctioning. Intermin fevers noted. Breathing treatments continue. O2 remains at 3L/NC and sats remain in the 90s. Blood pressure remains stable. Pt does look at you when spoken to but remains nonverbal. Scope patch was applied to help with increase congestion. Pt remains tachycardic with heart rate in the low 100s. Will continue to monitor and provide comfort if pt appears in distress. Update also called to Dr Cutler. He said that he had spoken to the pts daughter a few days ago and updated her on current status. I told Shabana that if there was any change in her mothers condition, that I would notify her. She said she had planned to visit later today.
[2020-11-06 14:03] LABS: PLATELET COUNT 6 x10^3/uL (140-400); WHITE BLOOD COUNT 0.8 x10^3/uL (4.0-11.0)
[2020-11-06 14:22] LABS: ALBUMIN 1.5 g/dL (3.4-5.0); ALBUMIN/GLOBULIN RATIO 0.5 (1.0-1.7); CALCIUM 7.8 mg/dL (8.5-10.1); CREATININE 1.2 mg/dL (0.6-1.0); GFR 51.9; POTASSIUM 5.6 mmol/L (3.5-5.1); TOTAL BILIRUBIN 0.4 mg/dL (0.2-1.0); TOTAL PROTEIN 4.3 g/dL (6.4-8.2)
[2020-11-06 15:00] VITALS: BP 113/92
--- NOTE | 2020-11-06 16:15 | NUR ---
Telemetry changed quickly from tachycardia to sinus arrthymia. Then to sinus avelino. When I entered the room, pt was taking her last breaths. monitor quickly read asystole. She appeared very peaceful. No facial grimacing noted. Time of was 1610. Pt is without heart beat and breathing. Dr Jones notified.
--- NOTE | 2020-11-06 16:30 | NUR ---
Call placed to daughter to notify her of her mothers passing. Pt is very upset. Family is bringing her to the hospital. Dr Cutler also notified. He plans to call the daughter also.
--- NOTE | 2020-11-06 17:30 | NUR ---
Family arrived and is at bedside. home of choice is Mrs SHELIA Molina at [address] [place] [id number]. Malena at home was notified of . [phone]
--- NOTE | 2020-11-07 00:19 | NUR ---
After family visits pt transported to [facility] [place].
--- NOTE | 2020-11-07 09:29 | RAD ---
Exam Date: 11/06/2020 1:09 PM XR CHEST 1V Indication: Reason: Fever and neutropenia / Spl. Instructions: / History: . Comparison: October 31, 2020 FINDINGS/ IMPRESSION: Right Port-A-Cath remains in place. Aorta is calcified. The cardiac silhouette is borderline enlarged with worsening mild to moderate congestion. Diffuse bi lateral lung infiltrates are more prominent compared to the prior exam. Small right pleural effusion is unchanged. Small to moderate left pleural effusion is increased in size. No appreciable pneumot horax. Chronic right rib fractures are again seen. Electronically signed by: Sander Bauman MD (11/07/2020 9:26 AM) [facility]
--- NOTE | 2020-11-08 10:39 | DS ---
DATE OF DISCHARGE: 11/07/2020 SUMMARY HOSPITAL SUMMARY: An 85-year-old black female who was recently diagnosed with lung cancer who had undergone chemotherapy treatment under the direction of Dr. Cutler and developed severe pancytopenia as a result. She was febrile when she came in and she was treated with IV antibiotics, but never recovered in the bone marrow function. She became febrile with evidence of pneumonia, and comfort care measures were instituted. She was given IV morphine, transdermal scopolamine and IV fluid, but continues to decline and on the afternoon on 11/07. Family was aware of her status and had no further questions and postmortem examination was not requested. FINAL DIAGNOSES: 1. Chemotherapy-induced pancytopenia. 2. Cancer of the lung, stage IV. OPERATIONS, PROCEDURES, COMPLICATIONS: None. CONSULTATION: Dr. Cutler. DISPOSITION: No postmortem examination was requested. PRAVEEN FUENTES: Denis TID: [id number]
== END 2020-11-07 00:18 | DRG 808 ==
LOC: ER 19:09 → ED HOLD 21:30 → 5 NORTH 10-27 10:09 → 6 SOUTH 10-29 13:37
PROVIDERS: ADMIT Family Medicine; ATTEND Family Medicine
PROC: 30233R1 Transfusion of Nonautologous Platelets into Peripheral Vein, Percutaneous Approach (ICD-10-PCS; principal; 2020-10-28)
PROC: 30233N1 Transfusion of Nonautologous Red Blood Cells into Peripheral Vein, Percutaneous Approach (ICD-10-PCS; 2020-10-28)
PROC: 5A09357 Assistance with Respiratory Ventilation, Less than 24 Consecutive Hours, Continuous Positive Airway Pressure (ICD-10-PCS; 2020-10-31)
DX: D61.810 Antineoplastic chemotherapy induced pancytopenia (principal); E43 Unspecified severe protein-calorie malnutrition; J96.01 Acute respiratory failure with hypoxia; J18.9 Pneumonia, unspecified organism; C34.90 Malignant neoplasm of unspecified part of unspecified bronchus or lung; G93.40 Encephalopathy, unspecified; I48.92 Unspecified atrial flutter; J44.0 Chronic obstructive pulmonary disease with (acute) lower respiratory infection; D70.1 Agranulocytosis secondary to cancer chemotherapy; D70.9 Neutropenia, unspecified; E86.0 Dehydration; E83.42 Hypomagnesemia; E87.70 Fluid overload, unspecified; F03.90 Unspecified dementia, unspecified severity, without behavioral disturbance, psychotic disturbance, mood disturbance, and anxiety; I10 Essential (primary) hypertension; I25.10 Atherosclerotic heart disease of native coronary artery without angina pectoris; K12.30 Oral mucositis (ulcerative), unspecified; R50.81 Fever presenting with conditions classified elsewhere; T45.1X5A Adverse effect of antineoplastic and immunosuppressive drugs, initial encounter; Z82.49 Family history of ischemic heart disease and other diseases of the circulatory system; Z85.118 Personal history of other malignant neoplasm of bronchus and lung; Z87.01 Personal history of pneumonia (recurrent); Z87.891 Personal history of nicotine dependence; Z90.2 Acquired absence of lung [part of]; Z90.49 Acquired absence of other specified parts of digestive tract; Z90.710 Acquired absence of both cervix and uterus; Z96.649 Presence of unspecified artificial hip joint; D64.81 Anemia due to antineoplastic chemotherapy; D69.59 Other secondary thrombocytopenia; F32.9 Major depressive disorder, single episode, unspecified; K21.9 Gastro-esophageal reflux disease without esophagitis; K57.90 Diverticulosis of intestine, part unspecified, without perforation or abscess without bleeding; M10.9 Gout, unspecified; Z68.28 Body mass index [BMI] 28.0-28.9, adult; Z91.018 Allergy to other foods
CPT/HCPCS: 36415; 36430; 36600; 70450; 71045; 74177; 80048; 80053; 81001; 82805; 83605; 83690; 83735; 83880; 84484; 84550; 85007; 85025; 86850; 86900; 86901; 86920; 87040; 87493; 93005; 93308; 94640; 94660; 94760; 96361; 96365; 96366; 96375; C9113; J0610; J0692; J1200; J1442; J1447; J1940; J1956; J2270; J2405; J3475; J3490; J7030; J7512; P9016; P9035; Q9966; Q9967; 99285-25; G0378